=== PATIENT | female | born 1935 | race Hispanic/Latino ===

== ENCOUNTER 2017-10-04 01:45 | Emergency (ER) | payer OTHER ==
--- OUTSIDE RECORDS SUMMARY | 2017-10-04 01:47 | XMS REPORT | Clinical Summary ---
:1935 Author Organization [facility] Address [address] [place] [address] Care Team Providers Name Role Phone Asked, No Pcp Primary Care Provider Unavailable Allergies Active Allergy Reactions Severity Noted Date Comments Adhesive 04/23/2013 Tears skin Sulfasalazine Rash Low 11/06/2013 Current Medications Prescription Sig. Disp. Refills Start Date End Date Status glimepiride (AMARYL) 1 MG tablet 07/14/2016 Active metoprolol tartrate (LOPRESSOR) 25 mg 08/14/2016 Active tablet levothyroxine (SYNTHROID, LEVOXYL) 150 07/14/2016 Active mcg tablet simvastatin (ZOCOR) 10 MG tablet 07/14/2016 Active lisinopril (PRINIVIL,ZESTRIL) 2.5 mg 07/26/2016 Active tablet XARELTO 20 mg tablet 05/24/2016 Active Hospital, Clinic, or Other Ordered Dose Route Frequency Start Date End Date Status Facility Administered Medication LORAZepam (ATIVAN) tablet 1 1 mg oral once 09/02/2016 Active mg meperidine (PF) (DEMEROL) 75 75 mg IM once 09/02/2016 Active mg/mL injection 75 mg Active Problems Not on file Social History Tobacco Use Types Packs/Day Years Used Date Never Smoker Alcohol Use Drinks/Week oz/Week Comments No Sex Assigned at Date Recorded Not on file Last Filed Vital Signs Not on file Plan of Treatment Health Maintenance Due Date Last Done Comments SHINGRIX VACCINE (#1) 1985 ZOSTER VACCINE 1995 PNEUMOCOCCAL POLYSACCHARIDE VACCINE AGE 65 AND OVER 2000 PNEUMOCOCCAL-13 2000 INFLUENZA VACCINE 09/27/2017 Results Not on fileafter 10/03/2016 Insurance Payer Benefit Plan / Group Subscriber ID Type Phone Address MEDICARE MEDICARE PART A AND B xxxxxxxxxx Medicare [place], [place] Home: [address] [facility] [phone] [place] [phone]
[2017-10-04] MEDS ORDERED: ONDANSETRON 4 MG/2 ML VIAL ONE (02:37)
[2017-10-04] MEDS ORDERED: KETOROLAC 30 MG/ML INJ ONE (02:37)
[2017-10-04] MEDS ORDERED: FENTANYL CITR 100 MCG/2 ML ONE (02:37)
[2017-10-04] MEDS ORDERED: NA CHLORIDE 0.9% 250 ML ONE (02:37)
[2017-10-04 03:07] LABS: Absolute Lymphocytes (CBC) 1.7 K/uL (0.7-4.9); Absolute Monocytes 1.2 K/uL (0.1-1.3); Absolute Neutrophil 6.4 K/uL (1.8-8.0); Basophils % 0.2 % (0-1.3); Eosinophils % 0.7 % (0-4.4); Hematocrit 38.3 % (36.0-45.0); Lymphocytes % 18.1 % (15.3-44.8); MCH 30.4 pg (27.0-35.0); MCV 90.5 fL (80-100); MPV 9.2 fL (7.6-11.3); Monocytes % 12.3 % (3.3-12.3); RBC Red Blood Cell Count 4.23 M/uL (3.86-4.86)
[2017-10-04 03:25] LABS: Albumin 3.9 g/dL (3.4-5.0); Bilirubin Total 0.7 mg/dL (0.2-1.0); Potassium 4.5 mmol/L (3.5-5.1); Protein, Total 7.1 g/dL (6.4-8.2)
[2017-10-04] MEDS ORDERED: DEXAMETHASONE 10 MG/ML VIAL ONE (04:04)
--- NOTE | 2017-10-04 04:45 | EDPHYS ---
Physician Documentation [facility] Name: Dianne Juárez Age: 82 yrs Sex: Female : 1935 Arrival Date: 10/04/2017 Time: 01:46 Bed 6 Private MD: Darren Rudd R ED Physician Tor Rodriguez HPI: 10/04 02:21 This 82 yrs old Female presents to ER via Ambulatory with complaints of jesus manuel Shoulder Pain. 02:21 This 82 yrs old Female presents to ER via Ambulatory with complaints of jesus manuel Shoulder Pain. 02:21 The patient or guardian complains of decreased range of motion, pain, that is acute. jesus manuel right shoulder. Context: The problem was sustained at an unknown site. Onset: The symptoms/episode began/occurred 3 day(s) ago. Modifying factors: the symptoms are alleviated by remaining still, The symptoms are aggravated by movement. Associated signs and symptoms: The patient has no apparent associated signs or symptoms. Severity of symptoms: At their worst the symptoms were mild, moderate, in the emergency department the symptoms are unchanged. Treatment prior to arrival includes: no previous treatment. The patient has not experienced similar symptoms in the past. Historical: - Allergies: 02:07 Adhesives; fc 02:07 Sulfa (Sulfonamide Antibiotics); fc - Home Meds: 02:07 glimepiride 1 mg Oral tab 1 tab once daily [Active]; levothyroxine 150 mcg tab 1 tab fc once daily [Active]; lisinopril 10 mg oral tab 1 tab once daily [Active]; metoprolol tartrate 25 mg Oral tab 1 tab 2 times per day [Active]; Lasix 40 mg Oral tab 1 tab once daily [Active]; Xarelto 20 mg Oral tab 1 tab q evening [Active]; simvastatin 10 mg Oral tab 1 tab nightly [Active]; Enablex 15 mg oral Tb24 1 tab nightly [Active]; Naprosyn 375 mg Oral tab 1 tab 2 times per day [Active]; - PMHx: 02:07 Diabetes - NIDDM; Hypothyroidism; Hypertension; Atrial Fib; Hyperlipidemia; irregular fc heart beat; - PSHx: 02:07 Knee surgery; Cholecystectomy; BACK SURGERY; Lithotripsy; Carpal Tunnel Repair; fc - Immunization history:: Last tetanus immunization: unknown. - Social history:: Smoking status: Patient/guardian denies using tobacco. - Ebola Screening: : Patient negative for fever greater than or equal to 101.5 degrees Fahrenheit, and additional compatible Ebola Virus Disease symptoms Patient denies exposure to infectious person Patient denies travel to an Ebola-affected area in the 21 days before illness onset. - Family history:: not pertinent. ROS: 02:21 Constitutional: Negative for fever, chills, and weight loss, Eyes: Negative for injury, jesus manuel pain, redness, and discharge, ENT: Negative for injury, pain, and discharge, Neck: Negative for injury, pain, and swelling, Cardiovascular: Negative for chest pain, palpitations, and edema, Respiratory: Negative for shortness of breath, cough, wheezing, and pleuritic chest pain, Abdomen/GI: Negative for abdominal pain, nausea, vomiting, diarrhea, and constipation, Back: Negative for injury and pain, : Negative for injury, bleeding, discharge, and swelling, Skin: Negative for injury, rash, and discoloration, Neuro: Negative for headache, weakness, numbness, tingling, and seizure, Psych: Negative for depression, anxiety, suicide ideation, homicidal ideation, and hallucinations, Allergy/Immunology: Negative for hives, rash, and allergies, Endocrine: Negative for neck swelling, polydipsia, polyuria, polyphagia, and marked weight changes, Hematologic/Lymphatic: Negative for swollen nodes, abnormal bleeding, and unusual bruising. 02:21 MS/extremity: Positive for injury or acute deformity, decreased range of motion, pain, tenderness, of the anterior aspect of right shoulder and posterior aspect of right shoulder. Exam: 02:21 Constitutional: This is a well developed, well nourished patient who is awake, alert, jesus manuel and in no acute distress. Head/Face: Normocephalic, atraumatic. Eyes: Pupils equal round and reactive to light, extra-ocular motions intact. Lids and lashes normal. Conjunctiva and sclera are non-icteric and not injected. Cornea within normal limits. Periorbital areas with no swelling, redness, or edema. ENT: Nares patent. No nasal discharge, no septal abnormalities noted. Tympanic membranes are normal and external auditory canals are clear. Oropharynx with no redness, swelling, or masses, exudates, or evidence of obstruction, uvula midline. Mucous membranes moist. Neck: Trachea midline, no thyromegaly or masses palpated, and no cervical lymphadenopathy. Supple, full range of motion without nuchal rigidity, or vertebral point tenderness. No Meningismus. Chest/axilla: Normal chest wall appearance and motion. Nontender with no deformity. No lesions are appreciated. Cardiovascular: Regular rate and rhythm with a normal S1 and S2. No gallops, murmurs, or rubs. Normal PMI, no JVD. No pulse deficits. Respiratory: Lungs have equal breath sounds bilaterally, clear to auscultation and percussion. No rales, rhonchi or wheezes noted. No increased work of breathing, no retractions or nasal flaring. Abdomen/GI: Soft, non-tender, with normal bowel sounds. No distension or tympany. No guarding or rebound. No evidence of tenderness throughout. Back: No spinal tenderness. No costovertebral tenderness. Full range of motion. Skin: Warm, dry with normal turgor. Normal color with no rashes, no lesions, and no evidence of cellulitis. Neuro: Awake and alert, GCS 15, oriented to person, place, time, and situation. Cranial nerves II-XII grossly intact. Motor strength 5/5 in all extremities. Sensory grossly intact. Cerebellar exam normal. Normal gait. Psych: Awake, alert, with orientation to person, place and time. Behavior, mood, and affect are within normal limits. 02:21 Musculoskeletal/extremity: Circulation is intact in all extremities. Pulses: Compartment Syndrome exam of affected extremity: is normal. Joints: limited range of motion, pain at rest, painful range of motion, tenderness, DVT Exam: no swelling, negative Homans' sign noted on exam, no appreciated bluish discoloration, no erythema, no increased warmth, pain, tenderness. Vital Signs: 01:50 BP 175 / 85; Pulse 53; Resp 18; Temp 98.6(O); Pulse Ox 97% on R/A; Weight 98.88 kg (R); fc Height 5 ft. 2 in. (157.48 cm) (R); Pain 9/10; 04:09 BP 158 / 96; Pulse 65; Resp 18; Pulse Ox 98% on 2 lpm NC; lp1 01:50 Body Mass Index 39.87 (98.88 kg, 157.48 cm) MDM: 02:11 Patient medically screened. [facility] 02:25 Data reviewed: vital signs, nurses notes, lab test result(s), radiologic studies, plain [facility] films. 10/04 02:21 Order name: CBC with Diff; Complete Time: 04:25 [facility] 10/04 02:21 Order name: Comprehensive Metabolic Panel; Complete Time: 04:25 [facility] 10/04 02:21 Order name: Sed Rate; Complete Time: 04:25 [facility] 10/04 02:21 Order name: Shoulder Right (2 View) XRAY [facility] 10/04 04:37 Order name: Sling; Complete Time: 05:18 [facility] 10/04 04:41 Order name: Ice pack; Complete Time: 05:18 [facility] Administered Medications: 02:53 Drug: NS 0.9% 250 ml Route: IV; Rate: bolus; Site: left antecubital; lp1 05:22 Follow up: IV Status: Completed infusion; IV Intake: 200ml lp1 02:54 Drug: TORadol 15 mg Route: IVP; Site: left antecubital; lp1 03:22 Follow up: Response: Pain is unchanged, physician notified lp1 02:54 Drug: fentaNYL (PF) 25 mcg Route: IVP; Site: left antecubital; lp1 03:22 Follow up: Response: Pain is unchanged, physician notified lp1 02:54 Drug: Zofran 4 mg Route: IVP; Site: left antecubital; lp1 03:23 Follow up: Response: No adverse reaction lp1 03:22 Drug: fentaNYL (PF) 25 mcg Route: IVP; Site: left antecubital; lp1 04:07 Follow up: Response: Pain is decreased lp1 04:06 Drug: Decadron - Dexamethasone 10 mg Route: IVP; Site: left antecubital; lp1 04:45 Follow up: Response: No adverse reaction lp1 05:00 Drug: [place] 10 mg-325 mg 1 tabs Route: PO; lp1 05:18 Follow up: Response: Medication administered at discharge. lp1 05:00 Drug: Motrin 200 mg Route: PO; lp1 05:18 Follow up: Response: Medication administered at discharge. lp1 Disposition: 10/04/17 04:44 Discharged to Home. Impression: Pain in right shoulder, Effusion, right shoulder, Unspecified kidney failure, Type 2 diabetes mellitus. - Condition is Stable. - Discharge Instructions: Joint Pain, Arthritis, Type 2 Diabetes Mellitus, Diagnosis, Adult, Shoulder Pain, Shoulder Pain, [id number], Type 2 Diabetes Mellitus, Diagnosis, Adult, [id number]. - Prescriptions for Tylenol- Codeine #3 300-30 mg Oral Tablet - take 2 tablet by ORAL route every 6 hours As needed; 30 tablet. Medrol (Bret) 4 mg Oral Tablets, Dose Pack - take 1 tablet by ORAL route as directed - follow package instructions; 1 packet. Motrin IB 200 mg Oral Tablet - take 1 tablet by ORAL route every 6 hours As needed as needed with food; 20 tablet. - Medication Reconciliation Form, Thank You Letter, Antibiotic Education, Prescription Opioid Use form. - Follow up: Darren Rudd MD; When: 2 - 3 days; Reason: Recheck today's complaints, Continuance of care, Re-evaluation by your physician. Follow up: Philippe Thorpe MD; When: Tomorrow; Reason: Recheck today's complaints, Re-evaluation by your physician. - Problem is new. - Symptoms have improved. Signatures: Dispatcher [employer] EDNJ Tor Rodriguez MD MD cha Chretien, Felicia, RN RN fc Katerin Sparks RN RN lp1 Corrections: (The following items were deleted from the chart) 03:21 03:18 Chest Single View+RAD.RAD.BRZ ordered. [facility] 03:21 03:18 TYPE AND SCREEN+BB.LAB.BRZ ordered. [facility] 05:21 04:44 10/04/2017 04:44 Discharged to Home. Impression: Pain in right shoulder; lp1 Effusion, right shoulder; Unspecified kidney failure; Type 2 diabetes mellitus. Condition is Stable. Forms are Medication Reconciliation Form, Thank You Letter, Antibiotic Education, Prescription Opioid Use. Follow up: Darren Rudd; When: 2 - 3 days; Reason: Recheck today's complaints, Continuance of care, Re-evaluation by your physician. Follow up: Dr. Philippe Thorpe; When: Tomorrow; Reason: Recheck today's complaints, Re-evaluation by your physician. Problem is new. Symptoms have improved. jesus manuel
--- NOTE | 2017-10-04 04:45 | ER ---
Nurse's Notes [facility] Name: Dianne Juárez Age: 82 yrs Sex: Female : 1935 Arrival Date: 10/04/2017 Time: 01:46 Bed 6 Private MD: Darren Rudd R Diagnosis: Pain in right shoulder;Effusion, right shoulder;Unspecified kidney failure;Type 2 diabetes mellitus Presentation: 10/04 01:50 Presenting complaint: Daughter states that patient has been having right shoulder pain fc x 2 days. Denies any injury. Transition of care: patient was not received from another setting of care. Onset of symptoms was October 02, 2017. Risk Assessment: Do you want to hurt yourself or someone else? Patient reports no desire to harm self or others. Initial Sepsis Screen: Does the patient meet any 2 criteria? No. Patient's initial sepsis screen is negative. Does the patient have a suspected source of infection? No. Patient's initial sepsis screen is negative. Care prior to arrival: None. 01:50 Method Of Arrival: Ambulatory fc 01:50 Acuity: DOMINIQUE 4 fc Historical: - Allergies: 02:07 Adhesives; fc 02:07 Sulfa (Sulfonamide Antibiotics); fc - Home Meds: 02:07 glimepiride 1 mg Oral tab 1 tab once daily [Active]; levothyroxine 150 mcg tab 1 tab fc once daily [Active]; lisinopril 10 mg oral tab 1 tab once daily [Active]; metoprolol tartrate 25 mg Oral tab 1 tab 2 times per day [Active]; Lasix 40 mg Oral tab 1 tab once daily [Active]; Xarelto 20 mg Oral tab 1 tab q evening [Active]; simvastatin 10 mg Oral tab 1 tab nightly [Active]; Enablex 15 mg oral Tb24 1 tab nightly [Active]; Naprosyn 375 mg Oral tab 1 tab 2 times per day [Active]; - PMHx: 02:07 Diabetes - NIDDM; Hypothyroidism; Hypertension; Atrial Fib; Hyperlipidemia; irregular fc heart beat; - PSHx: 02:07 Knee surgery; Cholecystectomy; BACK SURGERY; Lithotripsy; Carpal Tunnel Repair; fc - Immunization history:: Last tetanus immunization: unknown. - Social history:: Smoking status: Patient/guardian denies using tobacco. - Ebola Screening: : Patient negative for fever greater than or equal to 101.5 degrees Fahrenheit, and additional compatible Ebola Virus Disease symptoms Patient denies exposure to infectious person Patient denies travel to an Ebola-affected area in the 21 days before illness onset. - Family history:: not pertinent. Screenin:50 Abuse screen: Denies threats or abuse. Nutritional screening: No deficits noted. Tuberculosis screening: No symptoms or risk factors identified. 02:55 Fall Risk None identified. lp1 Assessment: 02:45 General: Appears uncomfortable, Behavior is restless. Pain: Complains of pain in right lp1 shoulder Pain currently is 10 out of 10 on a pain scale. Quality of pain is described as aching, sharp, Pain began 2-3 days ago. Neuro: Level of Consciousness is awake, alert, obeys commands. Cardiovascular: Patient's skin is warm and dry. Respiratory: Respiratory effort is even, unlabored, Respiratory pattern is regular, symmetrical, Breath sounds are clear bilaterally. GI: Abdomen is non-distended. : No signs and/or symptoms were reported regarding the genitourinary system. EENT: No signs and/or symptoms were reported regarding the EENT system. Derm: Skin is fragile, is thin, Skin is dry, Skin is normal. Musculoskeletal: Circulation, motion, and sensation intact. Range of motion: limited in right shoulder related to pain Reports pain in right shouler. 03:15 Reassessment: Family states no pain relief to patient after meds given; Provider lp1 notified. 04:15 Reassessment: Patient and/or family updated on plan of care and expected duration. Pain lp1 level reassessed. Patient states continued pain to right shoulder, little relief; family at bedside Patient states symptoms have improved. Vital Signs: 01:50 BP 175 / 85; Pulse 53; Resp 18; Temp 98.6(O); Pulse Ox 97% on R/A; Weight 98.88 kg (R); Height 5 ft. 2 in. (157.48 cm) (R); Pain 9/10; 04:09 BP 158 / 96; Pulse 65; Resp 18; Pulse Ox 98% on 2 lpm NC; lp1 01:50 Body Mass Index 39.87 (98.88 kg, 157.48 cm) ED Course: 01:46 Patient arrived in ED. ds1 01:46 Katte, Darren, MD is Private Physician. ds1 01:50 Arm band placed on Patient placed in an exam room, on a stretcher. fc 01:50 Patient has correct armband on for positive identification. Bed in low position. Call fc light in reach. Side rails up X 1. 01:50 No provider procedures requiring assistance completed. fc 02:03 Triage completed. fc 02:11 Tor Rodriguez MD is Attending Physician. jesus manuel 02:23 Katerin Sparks RN is Primary Nurse. lp1 02:37 X-ray completed. Portable x-ray completed in exam room. Patient tolerated procedure kw well. 02:38 Shoulder Right (2 View) XRAY In Process Unspecified. EDMS 02:45 Inserted saline lock: 22 gauge in left antecubital area, using aseptic technique. Blood lp1 collected. 04:43 Darren Rudd MD is Referral Physician. jesus manuel 04:43 Philippe Thorpe MD is Referral Physician. jesus manuel 05:19 IV discontinued, No redness/swelling at site. Pressure dressing applied. lp1 05:19 Sling applied to right arm. Ice pack applied to right shoulder. lp1 Administered Medications: 02:53 Drug: NS 0.9% 250 ml Route: IV; Rate: bolus; Site: left antecubital; lp1 05:22 Follow up: IV Status: Completed infusion; IV Intake: 200ml lp1 02:54 Drug: TORadol 15 mg Route: IVP; Site: left antecubital; lp1 03:22 Follow up: Response: Pain is unchanged, physician notified lp1 02:54 Drug: fentaNYL (PF) 25 mcg Route: IVP; Site: left antecubital; lp1 03:22 Follow up: Response: Pain is unchanged, physician notified lp1 02:54 Drug: Zofran 4 mg Route: IVP; Site: left antecubital; lp1 03:23 Follow up: Response: No adverse reaction lp1 03:22 Drug: fentaNYL (PF) 25 mcg Route: IVP; Site: left antecubital; lp1 04:07 Follow up: Response: Pain is decreased lp1 04:06 Drug: Decadron - Dexamethasone 10 mg Route: IVP; Site: left antecubital; lp1 04:45 Follow up: Response: No adverse reaction lp1 05:00 Drug: [place] 10 mg-325 mg 1 tabs Route: PO; lp1 05:18 Follow up: Response: Medication administered at discharge. lp1 05:00 Drug: Motrin 200 mg Route: PO; lp1 05:18 Follow up: Response: Medication administered at discharge. lp1 Intake: 05:22 IV: 200ml; Total: 200ml. lp1 Outcome: 04:44 Discharge ordered by MD. ken 05:19 Discharged to home via wheelchair, with family. lp1 05:19 Condition: stable 05:19 Discharge instructions given to patient, family, Instructed on discharge instructions, follow up and referral plans. medication usage, Demonstrated understanding of instructions, follow-up care, medications, Prescriptions given X 3. 05:21 Patient left the ED. lp1 Signatures: Dispatcher [employer] EDMS Tor Rodriguez MD MD cha Chretien, Felicia, RN RN Karol Wells dsNereyda Yates Laura, RN RN lp1 Corrections: (The following items were deleted from the chart) 04:16 02:45 General: Appears uncomfortable, lp1 lp1
[2017-10-04] MEDS ORDERED: HYDROCODONE/APAP 10/325 TAB ONE (04:47)
[2017-10-04] MEDS ORDERED: IBUPROFEN 200 MG TAB PO ONE (05:01)
[2017-10-04 05:25] VITALS: TEMP 98.6
[2017-10-04 05:26] VITALS: BP 158/96; O2SAT 98
--- NOTE | 2017-10-04 08:45 | RAD REPORT ---
EXAM DESCRIPTION: Shoulder Right 2 View - 10/04/2017 2:41 am CLINICAL HISTORY: Nontraumatic right shoulder pain COMPARISON: None. TECHNIQUE: Internal and external rotation views of the right shoulder were obtained. FINDINGS: No gross fracture deformity seen and no gross evidence for dislocation. Patient has a wide khalida acromial humeral joint space. This can typically be seen with of a shoulder laxity. Curvilinear c alcification along the inferior articular margin is probably degenerative. Fracture fragment from the humerus or glenoid is doubtful. Occasionally, posterior dislocation can be masked. Degenerative fernandes ges at the AC joint are mild. No abnormal soft tissues in the subacromion space. IMPRESSION: No gross evidence for fracture or dislocation. If the patient has continued unexplained shoulder pain for abnormal range of motion, MR imaging could be obtained to evaluate for occult bony injury or internal derangement. Alternatively, CT imaging co uld be performed to evaluate for subtle fracture.
== END 2017-10-04 05:21 | disposition home or self-care (01) ==
LOC: ER 01:45
DX: M25.411 Effusion, right shoulder (principal); N19 Unspecified kidney failure; E11.9 Type 2 diabetes mellitus without complications; I10 Essential (primary) hypertension; E03.9 Hypothyroidism, unspecified; I48.91 Unspecified atrial fibrillation; Z79.01 Long term (current) use of anticoagulants; Z88.2 Allergy status to sulfonamides; Z91.048 Other nonmedicinal substance allergy status
CPT/HCPCS: 36415; 73030; 80053; 85025; 85652; J1100; J2405; J3010; 96361; 96365; 96366; 96374; 96375; 99284

== ENCOUNTER 2018-04-09 11:13 | Observation (INO) | payer OTHER ==
--- OUTSIDE RECORDS SUMMARY | 2018-04-09 12:06 | XMS REPORT | Clinical Summary ---
:1935 Author Organization [facility] Address [address] [place] [address] Care Team Providers Name Role Phone Asked, No Pcp Primary Care Provider Unavailable Allergies Active Allergy Reactions Severity Noted Date Comments Adhesive 04/23/2013 Tears skin Sulfasalazine Rash Low 11/06/2013 Medications Medication Sig Dispensed Refills Start Date End Date Status glimepiride (AMARYL) 0 07/14/2016 Active 1 MG tablet metoprolol tartrate 25 mg 2 (two) 0 08/14/2016 Active (LOPRESSOR) 25 mg times a day. tablet levothyroxine 0 07/14/2016 Active (SYNTHROID, LEVOXYL) 150 mcg tablet simvastatin (ZOCOR) 0 07/14/2016 Active 10 MG tablet furosemide (LASIX) Take 40 mg by 0 Active 40 mg/4 mL solution mouth daily. oral solution colchicine 0.6 mg Take 0.5 30 tablet 3 12/25/2017 12/25/2018 Active tablet tablets (0.3 mg total) by mouth 2 (two) times a day. famotidine (PEPCID) Take 1 tablet 60 tablet 3 12/25/2017 12/25/2018 Active 20 MG tablet (20 mg total) by mouth 2 (two) times a day. aspirin (ECOTRIN) 81 Take 1 tablet 30 tablet 3 12/26/2017 12/26/2018 Active MG enteric coated (81 mg total) tablet by mouth daily. clopidogrel (PLAVIX) Take 1 tablet 30 tablet 3 12/26/2017 12/26/2018 Active 75 mg tablet (75 mg total) by mouth daily. lisinopril 0 07/26/2016 12/25/2017 Discontinued (PRINIVIL,ZESTRIL) 2.5 mg tablet XARELTO 20 mg tablet 0 05/24/2016 12/25/2017 Discontinued Hospital, Clinic, or Ordered Dose Route Frequency Start Date End Date Status Other Facility Administered Medication LORAZepam (ATIVAN) 1 mg oral once 09/02/2016 12/25/2017 Discontinued tablet 1 mg meperidine (PF) 75 mg IM once 09/02/2016 12/25/2017 Discontinued (DEMEROL) 75 mg/mL injection 75 mg Active Problems Problem Noted Date A-fib 12/21/2017 Electrolyte and fluid disorder 12/20/2017 Atrial fibrillation, persistent 12/20/2017 Encounters Date Type Specialty Care Team Description 12/21/2017 Anesthesia Event Procedural Raymon Perkins Cardiology Rocael, PHYSICAL TESTING SUPERVISOR 12/21/2017 Surgery Procedural Maureen Douglas MD Cv left atrial Cardiology appendage closure- LARIAT [64485 (CPT)] 12/20/2017 - Hospital Encounter Cardiology RicardoAyaan renteria Atrial fibrillation, 12/25/2017 MD Larry persistent (HCC) (Primary Dx) 11/20/2017 Transcribe Orders Procedural RicardoAyaan ross Persistent atrial Cardiology MD Larry fibrillation (Primary Dx) 11/07/2017 Hospital Encounter Procedural RicardoAyaan Atrial fibrillation, Cardiology MD Larry unspecified type 11/07/2017 Hospital Encounter Procedural RicardoAyaan Chronic atrial Cardiology MD Larry fibrillation 11/06/2017 Transcribe Orders Procedural RicardoAyaan Atrial fibrillation Cardiology MD Larry unspecified type (Primary Dx) 10/26/2017 Transcribe Orders Procedural RicardoAyaan Chronic atrial Cardiology MD Larry fibrillation (Primary Dx) after 04/08/2017 Immunizations Name Dates Previously Given Next Due Pneumococcal Conjugate 13-Valent 12/23/2017 (Deferred: ) Family History Medical History Relation Name Comments Cancer Mother Diabetes Mother Relation Name Status Comments Mother Social History Tobacco Use Types Packs/Day Years Used Date Never Smoker Alcohol Use Drinks/Week oz/Week Comments No Sex Assigned at Date Recorded Not on file Job Start Date Occupation Industry Not on file Not on file Not on file Travel History Travel Start Travel End No recent travel history available. Last Filed Vital Signs Vital Sign Reading Time Taken Blood Pressure 105/73 12/25/2017 7:54 AM CDT Pulse 74 12/25/2017 7:54 AM CDT Temperature 36.7 C (98 F) 12/25/2017 7:54 AM CDT Respiratory Rate 16 12/25/2017 7:54 AM CDT Oxygen Saturation 95% 12/25/2017 7:54 AM CDT Inhaled Oxygen Concentration - - Weight 99.8 kg (220 lb 1.6 oz) 12/24/2017 4:56 AM CDT Height 157.5 cm (5' 2") 12/20/2017 7:25 PM CDT Body Mass Index 40.26 12/24/2017 4:56 AM CDT Plan of Treatment Health Maintenance Due Date Last Done Comments SHINGLES VACCINES (1 of 2) 1985 PNEUMOCOCCAL POLYSACCHARIDE VACCINE AGE 65 AND OVER 2000 PNEUMOCOCCAL-13 2000 INFLUENZA VACCINE 09/27/2017 Implants Implanted Type Area Senior Php Web Developer Device Shelf Model / Identifier Expiration Serial / Date Lot Balloon Oclsn Endocath 0.35in 90cm [id number] - [id number] Cardiovascular N/A: [employer] 20 06 / Implanted: 12/21/2017 (Quantity not on file) Implants N/A / Knee Implant Procedures Procedure Name Priority Date/Time Associated Comments Diagnosis POC GLUCOSE Routine 12/25/2017 11:41 Results for this AM CDT procedure are in the results section. CV ECHO 2D FOLLOW UP OR Routine 12/25/2017 9:15 Results for this LIMITED STUDY AM CDT procedure are in the results section. POC GLUCOSE Routine 12/25/2017 7:54 Results for this AM CDT procedure are in the results section. ESTIMATED GFR Routine 12/25/2017 5:41 Results for this AM CDT procedure are in the results section. MAGNESIUM LEVEL Routine 12/25/2017 5:41 Results for this AM CDT procedure are in the results section. BASIC METABOLIC PANEL Routine 12/25/2017 5:41 Results for this AM CDT procedure are in the results section. POC GLUCOSE Routine 12/24/2017 12:08 Results for this PM CDT procedure are in the results section. XR CHEST 1 VW PORTABLE STAT 12/24/2017 11:55 Results for this AM CDT procedure are in the results section. POC GLUCOSE Routine 12/24/2017 7:17 Results for this AM CDT procedure are in the results section. ESTIMATED GFR Routine 12/24/2017 6:23 Results for this AM CDT procedure are in the results section. MAGNESIUM LEVEL Routine 12/24/2017 6:23 Results for this AM CDT procedure are in the results section. B NATRIURETIC PEPTIDE Routine 12/24/2017 6:23 Results for this AM CDT procedure are in the results section. BASIC METABOLIC PANEL Routine 12/24/2017 6:23 Results for this AM CDT procedure are in the results section. POC GLUCOSE Routine 12/23/2017 9:52 Results for this PM CDT procedure are in the results section. POC GLUCOSE Routine 12/23/2017 5:06 Results for this PM CDT procedure are in the results section. ECHOCARDIOGRAM 2D COMPLETE Routine 12/23/2017 4:08 Results for this W MMODE SPECTRAL COLOR PM CDT procedure are in DOPPLER ([id number]) the results section. POC GLUCOSE Routine 12/23/2017 12:41 Results for this PM CDT procedure are in the results section. POC GLUCOSE Routine 12/23/2017 7:47 Results for this AM CDT procedure are in the results section. ESTIMATED GFR Routine 12/23/2017 4:55 Results for this AM CDT procedure are in the results section. MAGNESIUM LEVEL Routine 12/23/2017 4:55 Results for this AM CDT procedure are in the results section. B NATRIURETIC PEPTIDE Routine 12/23/2017 4:55 Results for this AM CDT procedure are in the results section. BASIC METABOLIC PANEL Routine 12/23/2017 4:55 Results for this AM CDT procedure are in the results section. POC GLUCOSE Routine 12/22/2017 10:02 Results for this PM CDT procedure are in the results section. POC GLUCOSE Routine 12/22/2017 5:45 Results for this PM CDT procedure are in the results section. POC GLUCOSE Routine 12/22/2017 10:45 Results for this AM CDT procedure are in the results section. POC GLUCOSE Routine 12/22/2017 7:46 Results for this AM CDT procedure are in the results section. ESTIMATED GFR Routine 12/22/2017 5:20 Results for this AM CDT procedure are in the results section. MAGNESIUM LEVEL Routine 12/22/2017 5:20 Results for this AM CDT procedure are in the results section. B NATRIURETIC PEPTIDE Routine 12/22/2017 5:20 Results for this AM CDT procedure are in the results section. BASIC METABOLIC PANEL Routine 12/22/2017 5:20 Results for this AM CDT procedure are in the results section. POC GLUCOSE Routine 12/21/2017 9:32 Results for this PM CDT procedure are in the results section. POC GLUCOSE Routine 12/21/2017 4:51 Results for this PM CDT procedure are in the results section. POC GLUCOSE Routine 12/21/2017 2:56 Results for this PM CDT procedure are in the results section. POC GLUCOSE Routine 12/21/2017 11:16 Results for this AM CDT procedure are in the results section. CV PERICARDIOCENTESIS Routine 12/21/2017 10:50 Atrial AM CDT fibrillation, persistent (HCC) CV LEFT ATRIAL APPENDAGE Routine 12/21/2017 10:50 Atrial CLOSURE AM CDT fibrillation, persistent (HCC) ACTIVATED CLOTTING TIME Routine 12/21/2017 10:44 Results for this AM CDT procedure are in the results section. ACTIVATED CLOTTING TIME Routine 12/21/2017 10:27 Results for this AM CDT procedure are in the results section. ACTIVATED CLOTTING TIME Routine 12/21/2017 9:05 Results for this AM CDT procedure are in the results section. IL AN ELECTIVE Routine 12/21/2017 8:49 ENDOTRACHEAL AIRWAY AM CDT Procedure Note - Rocco Becerra CRNA - 12/21/2017 8:49 AM CDT Airway Date/Time: 12/21/2017 8:33 AM Performed by: ROCCO BECERRA Authorized by: CARLOS ALBERTO MALONEY Location: OR Urgency: Elective Difficult Airway: No Anesthesiologist: CARLOS ALBERTO MALONEY Resident/PHYSICAL TESTING SUPERVISOR/AA: ROCCO BECERRA Performed by: resident/PHYSICAL TESTING SUPERVISOR/AA Preoxygenated with 100% O2: Yes C-spine Precautions Maintained Throughout: Yes Mask Ventilation: Easy mask Final Airway Type: Endotracheal airway Final Endotracheal Airway: ETT Cuffed: Yes Technique Used: Direct laryngoscopy Devices/Methods Used in Placement: Intubating stylet Insertion Site: Oral Blade Type: Mcclain Laryngoscope Blade/Videolaryngoscope Blade Size: 2 ETT Size (mm): 7.0 Cuff at minimum occlusion pressure: Yes Measured from: Lips ETT to Lips (cm): 20 Placement Verified by: CO2 detection, direct visualization and equal breath sounds Laryngoscopic view: Grade I - full view of glottis Rapid Sequence Induction (RSI): No Modified RSI: No Number of Attempts at Approach: 1 Pt intubated without difficulty or trauma; Positive end tidal CO2 noted, BBS , dentition remains intact per preop assessment PREPARE RBC STAT 12/21/2017 8:00 Results for this AM CDT procedure are in the results section. TYPE AND SCREEN STAT 12/21/2017 8:00 Results for this AM CDT procedure are in the results section. PARTIAL THROMBOPLASTIN STAT 12/21/2017 8:00 Results for this TIME (PTT) AM CDT procedure are in the results section. PROTHROMBIN TIME WITH STAT 12/21/2017 8:00 Results for this INR AM CDT procedure are in the results section. POC GLUCOSE Routine 12/21/2017 5:56 Results for this AM CDT procedure are in the results section. HC COMPLETE BLD COUNT Routine 12/20/2017 9:45 Results for this W/AUTO DIFF PM CDT procedure are in the results section. B NATRIURETIC PEPTIDE Routine 12/20/2017 9:45 Results for this PM CDT procedure are in the results section. ESTIMATED GFR Routine 12/20/2017 7:48 Results for this PM CDT procedure are in the results section. MAGNESIUM LEVEL Routine 12/20/2017 7:48 Results for this PM CDT procedure are in the results section. BASIC METABOLIC PANEL Routine 12/20/2017 7:48 Results for this PM CDT procedure are in the results section. CV CTA CORONARY PRE Routine 11/07/2017 3:34 Atrial fibrillation, Results for this AFIB PULMONARY VEIN PM CDT unspecified type procedure are in MAPPING the results section. ECHOCARDIOGRAM Routine 11/07/2017 3:16 Chronic atrial Results for this TRANSESOPHAGEAL W PM CDT fibrillation procedure are in DOPPLER COLORFLOW the results section. after 04/08/2017 Results POC glucose (12/25/2017 11:41 AM CDT)Only the most recent of17 resultswithin the time period is included. POC glucose 171 (H) 65 - 99 mg/dL [facility] DEPARTMENT OF PATHOLOGY Comment: AND GENOMIC MEDICINE [facility] Notified RN Meter ID: [id number] Merchandise Support Associate: Phil Velazquez Performing Organization Address City/State/Zipcode Phone Number [facility] DEPARTMENT OF PATHOLOGY AND [address] [phone] GENOMIC MEDICINE Echocardiogram 2d limited (12/25/2017 9:15 AM CDT) Narrative Performed At [facility] Echocardiography Report [address] [address], [place] [address] Pat.Name:DIANNE JUÁREZ.ID:[id number] .Date: 10/29/2018Refer.MD:AYAAN PARK MD Exam Time: 8:48:00 AMStudy Type:Routine Echo Height:62inWeight: 220lb BSA: 1.99 m2 DOBAge:1935,82Y Sex: FEMALEBP:105/73 HR:74 bpmSonogrphr: Radha Bernstein, RDCS, RVT Pat. Stat.:Inpatient Room:[address] Study Status:Final Echo Event ID:[id number] Order ID:[id number] Reason for Study:Effusion History / Clinical:Diabetes, Hyperlipidemia, Hypertension, Arrhythmias, Atrial Fibrillation Procedures:2D Echo,Colorflow Doppler Limited Race:C SUMMARY: No pericardial effusion. FINDINGS: LV: LV size is normal. There is severe concentric LV hypertrophy.LV EF is normal. Overall wall motion is normal.Estimated EF is 60-64%. RV: RV size is normal. RV systolic function is normal. RV wall motionis normal. LA: LA volume is severely enlarged. RA: RA size is normal. AO: Aortic root diameter is normal. NAYELY: No pericardial effusion. AV: No structural AV abnormalities noted. MV: Mild mitral annular calcification. Mild mitral regurgitation. PV: No structural PV abnormalities noted. TV: No structural TV abnormalities noted. Mild tricuspid regurgitation Other:Estimated PA systolic pressure is 41 mmHg, assuming a mean RAPof 10 mmHg. MEASUREMENTS: 2D Parasternal [place] Ao An2 cmLVPWd1.7 cm LVOT 2 cmLA Ds5.4 cm LVIDd4.2 cmIndex2.1 cm/m Ao Rtd 3.9 cm Index1.9 cm/m LVIDs2.3 cmLV Bxcm284.3 g(87-129) LV%fs 45 % LVM Mrjre284.8 g/m2 IVSd 1.5 cmRWT0.8 DOPPLER LVOT Stroke Vol LVOT 2 cmLVOT CO4 l/min LVOT TVI18.7 cmLVOT CI2 l/m/m2 LVOT Tm286 woapOY56 bpm LVOT SV 58.6 ml Signed 12/25/2017 02:35 PM Meeta Jaeger M.D. Procedure Note Interface, Radiology Results In - 12/25/2017 2:35 PM CDT Echocardiography Report [address] [place] [address] Pat.Name: DIANNE JUÁREZ Letty.ID: [id number] .Date: 12/25/2017 Refer.MD: AYAAN PARK MD Exam Time: 8:48:00 AM Study Type:Routine Echo Height: 62in Weight: 220lb BSA: 1.99 m2 Age: 2 1935,82Y Sex: FEMALE BP: 105/73 HR: 74 bpm Sonogrphr: Radha Bernstein RD, RVT Pat. Stat.:Inpatient Room: [address] Study Status:Final Echo Event ID:[id number] Order ID: [id number] Reason for Study:Effusion History / Clinical:Diabetes, Hyperlipidemia, Hypertension, Arrhythmias, Atrial Fibrillation Procedures:2D Echo,Colorflow Doppler Limited Race: C SUMMARY: No pericardial effusion. FINDINGS: LV: LV size is normal. There is severe concentric LV hypertrophy. LV EF is normal. Overall wall motion is normal. Estimated EF is 60-64%. RV: RV size is normal. RV systolic function is normal. RV wall motion is normal. LA: LA volume is severely enlarged. RA: RA size is normal. AO: Aortic root diameter is normal. NAYELY: No pericardial effusion. AV: No structural AV abnormalities noted. MV: Mild mitral annular calcification. Mild mitral regurgitation. PV: No structural PV abnormalities noted. TV: No structural TV abnormalities noted. Mild tricuspid regurgitation Other: Estimated PA systolic pressure is 41 mmHg, assuming a mean RAP of 10 mmHg. MEASUREMENTS: 2D Parasternal [place] Ao An 2 cm LVPWd 1.7 cm LVOT 2 cm LA Ds 5.4 cm LVIDd 4.2 cm Index 2.1 cm/m Ao Rtd 3.9 cm Index 1.9 cm/m LVIDs 2.3 cm LV Mass 272.3 g (87-129) LV%fs 45 % LVM Index 136.8 g/m2 IVSd 1.5 cm RWT 0.8 DOPPLER LVOT Stroke Vol LVOT 2 cm LVOT CO 4 l/min LVOT TVI 18.7 cm LVOT CI 2 l/m/m2 LVOT Tm 286 msec HR 68 bpm LVOT SV 58.6 ml Signed 12/25/2017 02:35 PM Meeta Jaeger M.D. Performing Organization Address City/State/Zipcode Phone Number [facility] [address] [place] [address] Estimated GFR (12/25/2017 5:41 AM CDT)Only the most recent of5 resultswithin the time period is included. Estimated GFR 64 mL/min/1.73 m2 [facility] DEPARTMENT OF Comment: PATHOLOGY AND GENOMIC CatergoryUnitsInterpretation MEDICINE G1 >=90 Normal or high G2 60-89Mildly decreased [id number] to moderately decreased [id number] to severely decreased G4 15-29Severely decreased G5 <15Kidney failure The eGFR was calculated using the Chronic Kidney Disease Epidemiology Collaboration (CKD-EPI) equation. Interpretation is based on recommendations of the National Kidney Foundation-Kidney Disease Outcomes Quality Initiative (NKF-KDOQI) published in 2014. Specimen Plasma specimen Performing Organization Address City/[facility] Phone Number [facility] DEPARTMENT OF PATHOLOGY AND [address] [place] [phone] GENOMIC MEDICINE Magnesium level (12/25/2017 5:41 AM CDT)Only the most recent of5 resultswithin the time period is included. Magnesium 2.0 1.6 - 2.4 mg/dL [facility] DEPARTMENT OF PATHOLOGY AND GENOMIC MEDICINE Specimen Plasma specimen Performing Organization Address [facility] Phone Number [facility] DEPARTMENT OF PATHOLOGY AND [address] [place] [id number] [facility] MEDICINE Basic metabolic panel (12/25/2017 5:41 AM CDT)Only the most recent of5 resultswithin the time period is included. Sodium 134 (L) 135 - 148 mEq/L [facility] DEPARTMENT OF PATHOLOGY AND GENOMIC MEDICINE Potassium 4.0 3.5 - 5.0 mEq/L [facility] DEPARTMENT OF PATHOLOGY AND GENOMIC MEDICINE Chloride 96 (L) 98 - 112 mEq/L [facility] DEPARTMENT OF PATHOLOGY AND GENOMIC MEDICINE CO2 25 24 - 31 mEq/L [facility] DEPARTMENT OF PATHOLOGY AND GENOMIC MEDICINE Anion gap 13@ANIO 7 - 15 mEq/L [facility] DEPARTMENT OF PATHOLOGY AND GENOMIC MEDICINE BUN 15 8 - 23 mg/dL [facility] DEPARTMENT OF PATHOLOGY AND GENOMIC MEDICINE Creatinine 0.84 0.50 - 0.90 mg/dL [facility] DEPARTMENT OF PATHOLOGY AND GENOMIC MEDICINE Glucose 112 (H) 65 - 99 mg/dL [facility] DEPARTMENT OF PATHOLOGY AND GENOMIC MEDICINE Calcium 8.6 (L) 8.8 - 10.2 mg/dL [facility] DEPARTMENT OF PATHOLOGY AND GENOMIC MEDICINE Specimen Plasma specimen Performing Organization Address [facility] Phone Number [facility] DEPARTMENT OF PATHOLOGY AND [address] [place] [phone] [facility] XR Chest 1 Vw Portable (12/24/2017 11:55 AM CDT) Narrative Performed At EXAMINATION:XR CHEST 1 VW PORTABLE RADIANT CLINICAL HISTORY:Pericardial drain removal COMPARISON:12/06/2013 IMPRESSION: 1.The cardiomediastinal silhouette is moderately enlarged. 2.Vascular congestion is unchanged. There is persistent retrocardiac volume loss. There are no significant effusions. [facility]-[id number] Procedure Note Interface, Radiology Results Incoming - 12/24/2017 12:20 PM CDT EXAMINATION: XR CHEST 1 VW PORTABLE CLINICAL HISTORY: Pericardial drain removal COMPARISON: 12/06/2013 IMPRESSION: 1. The cardiomediastinal silhouette is moderately enlarged. 2. Vascular congestion is unchanged. There is persistent retrocardiac volume loss. There are no significant effusions. [facility]-[id number] Performing Organization Address [facility] Phone Number [facility] [address] [place] [address] B natriuretic peptide (12/24/2017 6:23 AM CDT)Only the most recent of4 resultswithin the time period is included. BNP 151 (H) 0 - 100 pg/mL [facility] DEPARTMENT OF PATHOLOGY AND GENOMIC MEDICINE Specimen Blood Performing Organization Address [facility] Phone Number [facility] DEPARTMENT OF PATHOLOGY AND [address] [place] [address] GENOMIC MEDICINE Echocardiogram complete w contrast and 3D if needed (12/23/2017 4:08 PM CDT) Narrative Performed At [facility] Echocardiography Report [address] [place] [address] Pat.Name:DIANNE JUÁREZ Letty.ID:[id number] .Date: 12/23/2017Refer.MD:AYAAN PARK MD Exam Time: 3:24:00 PMStudy Type:Routine Echo Height:62inBSA: 2.01 m2 DOBAge:1935,82Y Sex: FEMALE BP:114/67HR: 86 bpm Sonogrphr: SHAKEEL Easley Pat. Stat.:Inpatient Room:[address] Study Status:Final Echo Event ID:[id number] Order ID:[id number] Reason for Study:Effusion History / Clinical:Diabetes, Hyperlipidemia, Hypertension, Arrhythmias, Atrial Fibrillation Procedures:2D Echo, Colorflow Doppler, Strain, Portable Race:C SUMMARY: LV size is normal. LV EF is normal. Estimated EF is 65-69% RV size is normal. RV systolic function is normal. FINDINGS: LV: LV size is normal. Concentric left ventricular remodeling. LVEF is normal. Overall wall motion is normal. Estimated EFis 65-69% RV: RV size is normal. RV systolic function is normal. LA: LA volume is severely enlarged. RA: RA size is normal. AO: Aortic root diameter is normal. NAYELY: Small anterior pericardial effusion. AV: No structural AV abnormalities noted. MV: Mild mitral annular calcification. PV: No structural PV abnormalities noted. TV: No structural TV abnormalities noted. Mild tricuspid regurgitation Other:Estimated PA systolic pressure is 38-43 mmHg, assuming a meanRAP of5-10 mmHg. MEASUREMENTS: 2D Parasternal [place] LVIDd4.3 cmIndex2.1 cm/m LA Ds5.4 cm LVIDs2.8 cmAo Rtd 3.7 cm Index1.8 cm/m LV%fs 35.4 % LV Pufc282.7 g(87-129) IVSd 1 cmLVM Index 88.9 g/m2 LVPWd1.3 cmRWT0.6 LA Sng Plane LA Area 30.1 cm2(8.8-23.4) LA Vol 119.1 ml Index59.3 ml/m LA LngAx 6.3 cm Signed 12/23/2017 05:14 PM Nick Umana M.D. Procedure Note Interface, Radiology Results In - 12/23/2017 5:16 PM CDT Echocardiography Report [address] [address] Pat.Name: DIANNE JUÁREZ Pat.ID: [id number] .Date: 12/23/2017 Refer.MD: AYAAN PARK MD Exam Time: 3:24:00 PM Study Type:Routine Echo Height: 62in BSA: 2.01 m2 Age: 2 1935,82Y Sex: FEMALE BP: 114/67 HR: 86 bpm Sonogrphr: SHAKEEL Easley Pat. Stat.:Inpatient Room: [address] Study Status:Final Echo Event ID:[id number] Order ID: [id number] Reason for Study:Effusion History / Clinical:Diabetes, Hyperlipidemia, Hypertension, Arrhythmias, Atrial Fibrillation Procedures:2D Echo, Colorflow Doppler, Strain, Portable Race: C SUMMARY: LV size is normal. LV EF is normal. Estimated EF is 65-69% RV size is normal. RV systolic function is normal. FINDINGS: LV: LV size is normal. Concentric left ventricular remodeling. LV EF is normal. Overall wall motion is normal. Estimated EF is 65-69% RV: RV size is normal. RV systolic function is normal. LA: LA volume is severely enlarged. RA: RA size is normal. AO: Aortic root diameter is normal. NAYELY: Small anterior pericardial effusion. AV: No structural AV abnormalities noted. MV: Mild mitral annular calcification. PV: No structural PV abnormalities noted. TV: No structural TV abnormalities noted. Mild tricuspid regurgitation Other: Estimated PA systolic pressure is 38-43 mmHg, assuming a mean RAP of 5-10 mmHg. MEASUREMENTS: 2D Parasternal [place] LVIDd 4.3 cm Index 2.1 cm/m LA Ds 5.4 cm LVIDs 2.8 cm Ao Rtd 3.7 cm Index 1.8 cm/m LV%fs 35.4 % LV Mass 178.7 g (87-129) IVSd 1 cm LVM Index 88.9 g/m2 LVPWd 1.3 cm RWT 0.6 LA Sng Plane LA Area 30.1 cm2 (8.8-23.4) LA Vol 119.1 ml Index 59.3 ml/m LA LngAx 6.3 cm Signed 12/23/2017 05:14 PM Nick Umana M.D. Performing Organization Address [facility] Phone Number [facility] [address] [place] [address] Activated clotting time (12/21/2017 10:44 AM CDT)Only the most recent of3 resultswithin the time period is included. Activated clotting time 113 96 - 152 sec [facility] DEPARTMENT OF PATHOLOGY Comment: AND Arden Reed Meter ID: [id number] Merchandise Support Associate: Gregorio Ennis Performing Organization Address [facility]/[employer] Phone Number [facility] DEPARTMENT OF PATHOLOGY AND [address] [place] [address] Arden Reed Partial thromboplastin time, activated (12/21/2017 8:00 AM CDT) PTT 25.8 23.0 - 36.0 sec [facility] DEPARTMENT OF PATHOLOGY Comment: AND Arden Reed PTT therapeutic range for unfractionated heparin is 61.0-112.0 seconds which corresponds to Anti-Xa 0.3-0.7 U/ml. Specimen Blood Performing Organization Address [facility]/[employer] Phone Number [facility] DEPARTMENT OF PATHOLOGY AND [address] [place] [address] [employer] [facility] Prothrombin time with INR (12/21/2017 8:00 AM CDT) Prothrombin time 13.3 12.0 - 15.0 sec [facility] DEPARTMENT OF PATHOLOGY AND GENOMIC MEDICINE INR 1.0 [facility] DEPARTMENT OF Comment: PATHOLOGY AND GENOMIC The International Normalized Ratio (INR) is a therapeutic MEDICINE monitoring tool for patients who are stable on oral anticoagulant therapy. An INR of 2.0-3.0 is suggested for deep vein thrombosis/pulmonary embolism. Specimen Blood Performing Organization Address City/State/Zipcode Phone Number [facility] DEPARTMENT OF PATHOLOGY AND [address] [place] [address] Arden Reed Prepare RBC (12/21/2017 8:00 AM CDT) Product name Red Blood Cells -1, [facility] DEPARTMENT OF Leukored PATHOLOGY AND GENOMIC MEDICINE Unit number [id number] [facility] DEPARTMENT OF PATHOLOGY AND GENOMIC MEDICINE Product code [id number] [facility] DEPARTMENT OF PATHOLOGY AND GENOMIC MEDICINE Dispense status Returned to not [facility] DEPARTMENT OF transfused PATHOLOGY AND GENOMIC MEDICINE Blood expiration date [facility] DEPARTMENT OF PATHOLOGY AND GENOMIC MEDICINE Blood type code 7300 [facility] DEPARTMENT OF PATHOLOGY AND GENOMIC MEDICINE Blood type B POSITIVE [facility] DEPARTMENT OF PATHOLOGY AND GENOMIC MEDICINE Product name Red Blood Cells -1, [facility] DEPARTMENT OF Leukored PATHOLOGY AND GENOMIC MEDICINE Unit number [id number] [facility] DEPARTMENT OF PATHOLOGY AND GENOMIC MEDICINE Product code [id number] [facility] DEPARTMENT OF PATHOLOGY AND GENOMIC MEDICINE Dispense status Returned to not [facility] DEPARTMENT OF transfused PATHOLOGY AND GENOMIC MEDICINE Blood expiration date [facility] DEPARTMENT OF PATHOLOGY AND GENOMIC MEDICINE Blood type code 7300 [facility] DEPARTMENT OF PATHOLOGY AND GENOMIC MEDICINE Blood type B POSITIVE [facility] DEPARTMENT OF PATHOLOGY AND GENOMIC MEDICINE Product name Red Blood Cells -1, [facility] DEPARTMENT OF Leukored PATHOLOGY AND GENOMIC MEDICINE Unit number [id number] [facility] DEPARTMENT OF PATHOLOGY AND GENOMIC MEDICINE Product code [id number] [facility] DEPARTMENT OF PATHOLOGY AND GENOMIC MEDICINE Dispense status Returned to not [facility] DEPARTMENT OF transfused PATHOLOGY AND GENOMIC MEDICINE Blood expiration date [facility] DEPARTMENT OF PATHOLOGY AND GENOMIC MEDICINE Blood type code 7300 [facility] DEPARTMENT OF PATHOLOGY AND GENOMIC MEDICINE Blood type B POSITIVE [facility] DEPARTMENT OF PATHOLOGY AND GENOMIC MEDICINE Product name Red Blood Cells -1, [facility] DEPARTMENT OF Leukored PATHOLOGY AND GENOMIC MEDICINE Unit number [id number] [facility] DEPARTMENT OF PATHOLOGY AND GENOMIC MEDICINE Product code [id number] [facility] DEPARTMENT OF PATHOLOGY AND GENOMIC MEDICINE Dispense status Returned to BB not [facility] DEPARTMENT OF transfused PATHOLOGY AND GENOMIC MEDICINE Blood expiration date [id number] [facility] DEPARTMENT OF PATHOLOGY AND GENOMIC MEDICINE Blood type code 7300 [facility] DEPARTMENT OF PATHOLOGY AND GENOMIC MEDICINE Blood type B POSITIVE [facility] DEPARTMENT OF PATHOLOGY AND GENOMIC MEDICINE Performing Organization Address City/[facility] Phone Number [facility] DEPARTMENT OF PATHOLOGY AND [address] [place] [address] GENOMIC MEDICINE Type and screen (12/21/2017 8:00 AM CDT) ABO grouping B [facility] DEPARTMENT OF PATHOLOGY AND GENOMIC MEDICINE Rh type POS [facility] DEPARTMENT OF PATHOLOGY AND GENOMIC MEDICINE Antibody screen (gel) NEG [facility] DEPARTMENT OF PATHOLOGY AND GENOMIC MEDICINE Performing Organization Address City/[facility] Phone Number [facility] DEPARTMENT OF PATHOLOGY AND [address] [place] [address] GENOMIC [facility] CBC with platelet and differential (12/20/2017 9:45 PM CDT) WBC 9.28 4.50 - 11.00 k/uL [facility] DEPARTMENT OF PATHOLOGY AND GENOMIC MEDICINE RBC 3.72 (L) 4.20 - 5.50 m/uL [facility] DEPARTMENT OF PATHOLOGY AND GENOMIC MEDICINE HGB 11.5 (L) 12.0 - 16.0 g/dL [facility] DEPARTMENT OF PATHOLOGY AND GENOMIC MEDICINE HCT 36.1 (L) 37.0 - 47.0 % [facility] DEPARTMENT OF PATHOLOGY AND GENOMIC MEDICINE MCV 97.0 82.0 - 100.0 fL [facility] DEPARTMENT OF PATHOLOGY AND GENOMIC MEDICINE MCH 30.9 27.0 - 34.0 pg [facility] DEPARTMENT OF PATHOLOGY AND GENOMIC MEDICINE MCHC 31.9 31.0 - 37.0 g/dL [facility] DEPARTMENT OF PATHOLOGY AND GENOMIC MEDICINE RDW - SD 50.5 37.0 - 55.0 fL [facility] DEPARTMENT OF PATHOLOGY AND GENOMIC MEDICINE MPV 10.5 8.8 - 13.2 fL [facility] DEPARTMENT OF PATHOLOGY AND GENOMIC MEDICINE Platelet count 190 150 - 400 k/uL [facility] DEPARTMENT OF PATHOLOGY AND GENOMIC MEDICINE Nucleated RBC 0.00 /100 WBC [facility] DEPARTMENT OF PATHOLOGY AND GENOMIC MEDICINE Neutrophils 78.3 (H) 39.0 - 69.0 % [facility] DEPARTMENT OF PATHOLOGY AND GENOMIC MEDICINE Lymphocytes 12.8 (L) 25.0 - 45.0 % [facility] DEPARTMENT OF PATHOLOGY AND GENOMIC MEDICINE Monocytes 8.1 0.0 - 10.0 % [facility] DEPARTMENT OF PATHOLOGY AND GENOMIC MEDICINE Eosinophils 0.2 0.0 - 5.0 % [facility] DEPARTMENT OF PATHOLOGY AND GENOMIC MEDICINE Basophils 0.2 0.0 - 1.0 % [facility] DEPARTMENT OF PATHOLOGY AND GENOMIC MEDICINE Immature granulocytes 0.4Comment: 0.0 - 1.0 % [facility] DEPARTMENT OF "Immature PATHOLOGY AND GENOMIC granulocytes" MEDICINE (promyelocytes, myelocytes, metamyelocytes) Specimen Blood Performing Organization Address City/State/Zipcode Phone Number [facility] DEPARTMENT OF PATHOLOGY AND [address] [place] [address] [employer] [facility] Cv cta pre afib pulmonary vein mapping (11/07/2017 3:34 PM CDT) Narrative Performed At [facility] Nuclear Cardiology and Cardiac CT [address] [place] [address] CTA Chest Non-Coronary with Contrast Report Pat.Name:DIANNE JUÁREZ Pat.ID:[id number] .Date: 11/07/2017 Refer.MD:AYAAN PARK MD Exam Time: 2:58:00 PM Study Type:CTA Chest Non-Coronary W Contrast Height:61inWeight: 214lb BSA: 1.95 m2 DOBAge:1935,82Y Sex: FEMALEBP:132/60 HR:66 bpm Nuclear Tech:ALESHIA Pulido(N)(CT) CPT - 4: CTA Chest non coronary 54036 Nuclear Event ID:[id number] Order ID:[id number] Reason for Study:Pre A-Fib Ablation for Pulmonary Vein Mapping Procedures:CTA Chest Non- Coronary Race:C SUMMARY: Technique: IV contrast was administered and sequential 0.[address] cuts were obtained [facility]. Post-processing and 3D reconstruction were done using the [employer] workstation. Interactive image viewing and volumetric display and analysis were also performed. CTA RESULTS Left Main: A normal sized4.0 mm artery which arises normally from the left sinus of Valsalva and divides into the left anterior descending and circumflex coronary arteries. Mild calcified atherosclerotic plaque is present but without significant stenosis. Left anterior descending (LAD): A normal sized 3.6mm artery which wraps around the apex and gives off one diagonal branch. Mild predominantly calcified atherosclerotic plaque is present in the proximal and mid segments but without significant stenosis. The first diagonal is a 1.7 mm artery which has no significant atherosclerotic plaque. Left circumflex: A normal sized 2.8 mm non-dominant artery which gives off one major obtuse marginal artery before terminating in the AV groove. Mild calcified and non-calcified atherosclerotic plaque is present in the proximal segment but without significant stenosis. The first obtuse marginal is a 2.6 mm bifurcating artery which has mild predominantly calcified atherosclerotic plaque but with no significant stenosis. Right coronary artery: A normal sized 2.8 mm dominant artery which arises normally from the right sinus of Valsalva and gives off several right ventricular branches, the posterior descending artery and the posterolateral artery.No significant atherosclerotic plaque is present. The posterior descending is a 1.5 mm artery which has no significant atherosclerotic plaque. The posterolateral branch is a 1.5 mm bifurcating artery which has no significant atherosclerotic plaque. Stents: None. Bypass Grafts: None. Pulmonary Arteries: The main pulmonary artery is moderately dilated at 3.5 cm with no proximal thrombus identified. Left Atrial and Pulmonary Vein(PV) Dimensions: Left atrial size (A-P diameter) 4.5 cm. Left atrial volume 148 ml Normal PV anatomy Left superior PV19 mm. Left inferior PV 18 mm. Right superior PV 20 mm. Right inferior PV18mm. There is no evidence of the left atrial appendage clot. A PFO is visualized Lipomatous hypertrophy of the interatrial septum Left Ventricular Valve Morphology/Function: Aortic valve is tri-leaflet and there is no evidence of stenosis. Mitral valve is normal without significant regurgitation. Mild mitral annular calcification. Thoracic Aortic Dimensions: No aortic aneurysm or dissection is seen. Aortic root: 3.5 cm. Sinotubular junction 2.7 cm. Mid ascending thoracic aorta 3.6 cm. Descending thoracic aorta 2.4 cm. Pericardium: No pericardial effusion or pericardial thickening. Non-Cardiac Findings: Bilateral pulmonary congestion. Small hiatal hernia. CONCLUSION CT coronary angiography shows mild coronary artery atherosclerosis but no significant stenosis. Normal PV anatomy. There is no evidence of left atrial appendage thrombus. The main pulmonary artery is moderately dilated at 3.5 cm with no proximal thrombus identified. A PFO is visualized STUDY QUALITY The study quality is good. COMMENTS: None. The above report was based on a dedicated Cardiovascular CTA Protocol and interpreted by a Electronic System Engineer.Should a more comprehensive assessment of non-cardiovascular findings be desired, please consult a radiologist.These images are available in the [facility] [email or web address] PACS system. Signed 11/07/2017 06:24 PM Prasad Lutz MD Procedure Note Interface, Radiology Results In - 11/07/2017 6:25 PM CDT Nuclear Cardiology and Cardiac CT [address] [place] [address] CTA Chest Non-Coronary with Contrast Report Pat.Name: DIANNE JUÁREZ.ID: [id number] .Date: 11/07/2017 Refer.MD: AYAAN PARK MD Exam Time: 2:58:00 PM Study Type:CTA Chest Non-Coronary W Contrast Height: 61in Weight: 214lb BSA: 1.95 m2 Age: 2 1935,82Y Sex: FEMALE BP: 132/60 HR: 66 bpm Nuclear Tech:ALESHIA Pulido(N)(CT) CPT - 4: CTA Chest non coronary [address]47 Nuclear Event ID:[id number] Order ID: [id number] Reason for Study:Pre A-Fib Ablation for Pulmonary Vein Mapping Procedures:CTA Chest Non- Coronary Race: C SUMMARY: Technique: IV contrast was administered and sequential 0.[address] cuts were obtained through the chest using the Siem[employer] Som[employer] Force CT scanner. Post-processing and 3D reconstruction were done using the [employer] workstation. Interactive image viewing and volumetric display and analysis were also performed. CTA RESULTS Left Main: A normal sized 4.0 mm artery which arises normally from the left sinus of Valsalva and divides into the left anterior descending and circumflex coronary arteries. Mild calcified atherosclerotic plaque is present but without significant stenosis. Left anterior descending (LAD): A normal sized 3.6mm artery which wraps around the apex and gives off one diagonal branch. Mild predominantly calcified atherosclerotic plaque is present in the proximal and mid segments but without significant stenosis. The first diagonal is a 1.7 mm artery which has no significant atherosclerotic plaque. Left circumflex: A normal sized 2.8 mm non-dominant artery which gives off one major obtuse marginal artery before terminating in the AV groove. Mild calcified and non-calcified atherosclerotic plaque is present in the proximal segment but without significant stenosis. The first obtuse marginal is a 2.6 mm bifurcating artery which has mild predominantly calcified atherosclerotic plaque but with no significant stenosis. Right coronary artery: A normal sized 2.8 mm dominant artery which arises normally from the right sinus of Valsalva and gives off several right ventricular branches, the posterior descending artery and the posterolateral artery. No significant atherosclerotic plaque is present. The posterior descending is a 1.5 mm artery which has no significant atherosclerotic plaque. The posterolateral branch is a 1.5 mm bifurcating artery which has no significant atherosclerotic plaque. Stents: None. Bypass Grafts: None. Pulmonary Arteries: The main pulmonary artery is moderately dilated at 3.5 cm with no proximal thrombus identified. Left Atrial and Pulmonary Vein (PV) Dimensions: Left atrial size (A-P diameter) 4.5 cm. Left atrial volume 148 ml Normal PV anatomy Left superior PV19 mm. Left inferior PV 18 mm. Right superior PV 20 mm. Right inferior PV18mm. There is no evidence of the left atrial appendage clot. A PFO is visualized Lipomatous hypertrophy of the interatrial septum Left Ventricular Valve Morphology/Function: Aortic valve is tri-leaflet and there is no evidence of stenosis. Mitral valve is normal without significant regurgitation. Mild mitral annular calcification. Thoracic Aortic Dimensions: No aortic aneurysm or dissection is seen. Aortic root: 3.5 cm. Sinotubular junction 2.7 cm. Mid ascending thoracic aorta 3.6 cm. Descending thoracic aorta 2.4 cm. Pericardium: No pericardial effusion or pericardial thickening. Non-Cardiac Findings: Bilateral pulmonary congestion. Small hiatal hernia. CONCLUSION CT coronary angiography shows mild coronary artery atherosclerosis but no significant stenosis. Normal PV anatomy. There is no evidence of left atrial appendage thrombus. The main pulmonary artery is moderately dilated at 3.5 cm with no proximal thrombus identified. A PFO is visualized STUDY QUALITY The study quality is good. COMMENTS: None. The above report was based on a dedicated Cardiovascular CTA Protocol and interpreted by a Electronic System Engineer. Should a more comprehensive assessment of non-cardiovascular findings be desired, please consult a radiologist. These images are available in the [facility] [email or web address] PACS system. Signed 11/07/2017 06:24 PM Prasad Lutz MD Performing Organization Address City/State/Zipcode Phone Number [employer] [address] [place] [address] Echocardiogram transesophageal (11/07/2017 3:16 PM CDT) Narrative Performed At [facility] Transesophageal Echo Report [id number] , [address]Name:DIANNE JUÁREZ.ID:[id number] .Date: 11/07/2017 Refer.MD:AYAAN PARK MD Exam Time: 12:48:00 PM Study Type:RADHA Height:60inWeight: 214lb BSA: 1.92 m2 DOBAge:1935,82Y Sex: FEMALEBP:145/83 HR:64 bpmSonogrphr: Jevon Thakur MD Pat. Stat.:OutpatientStudy Status:Final Echo Event ID:[id number] Order ID:[id number] Reason for Study:Atrial fibrillation History / Clinical:Diabetes, Hyperlipidemia, Hypertension, Arrhythmias, Atrial Fibrillation Procedures:Transesophageal Echo with Colorflow Doppler Race:C SUMMARY: No thrombus or mass is visualized in the LA or LA appendage. FINDINGS: RADHA:The attending maintenance mechanic helper performed the RADHA procedure and waspresent for the entire duration. The patient was counseledand an informed consent was obtained. Topical and intravenousanesthesia was administered. The esophagus was intubatedwithout difficulty. The probe was passed to the gastricfundus and all standard echocardiographic views wereobtained. The patient tolerated the procedure well. LV: LV size is normal. LV EF is normal. Overall wall motion is normal.Estimated EF is 60-64%. RV: RV size is normal. RV systolic function is normal. LA: LA volume is enlarged. No thrombus or mass is visualized in theLA or LA appendage. RA: RA size is normal. AO: Aortic root diameter is normal in size. Mild atherosclerotic changesseen in the aortic arch and descending aorta. NAYELY: No pericardial effusion. AV: No structural AV abnormalities noted. MV: No structural MV abnormalities noted. Mild mitral regurgitation. PV: No structural PV abnormalities noted. Mild pulmonic regurgitation. TV: No structural TV abnormalities noted. RADHA: Anesthesia: Moderate SedationASA Class: 3 Physician: Akash Akins MD Atm Manager: Jevon Thakur MD Pre TEEBP HR Post RADHA BP HR 145/83 54646/72 62 Meds:Viscous xylocaine, Cetacaine spray to oropharynx, Versed 2 mg IV, Fentanyl 50 mcg IV Complications: None Condition: Stable MEASUREMENTS: 2D Parasternal [place] LVOT 1.8 cmAo Rtd 3.9 cm Ao An1.9 cm Signed 11/07/2017 05:15 PM Akash Akins MD Procedure Note Interface, Radiology Results In - 11/07/2017 5:15 PM CDT Transesophageal Echo Report [id number], [place], [place] [address] Pat.Name: DIANNE JUÁREZ.ID: [id number] .Date: 11/07/2017 Refer.MD: AYAAN PARK MD Exam Time: 12:48:00 PM Study Type:RADHA Height: 60in Weight: 214lb BSA: 1.92 m2 Age: 2 1935,82Y Sex: FEMALE BP: 145/83 HR: 64 bpm Sonogrphr: Jevon Thakur MD Pat. Stat.:Outpatient Study Status:Final Echo Event ID:[id number] Order ID: [id number] Reason for Study:Atrial fibrillation History / Clinical:Diabetes, Hyperlipidemia, Hypertension, Arrhythmias, Atrial Fibrillation Procedures:Transesophageal Echo with Colorflow Doppler Race: C SUMMARY: No thrombus or mass is visualized in the LA or LA appendage. FINDINGS: RADHA: The attending maintenance mechanic helper performed the RADHA procedure and was present for the entire duration. The patient was counseled and an informed consent was obtained. Topical and intravenous anesthesia was administered. The esophagus was intubated without difficulty. The probe was passed to the gastric fundus and all standard echocardiographic views were obtained. The patient tolerated the procedure well. LV: LV size is normal. LV EF is normal. Overall wall motion is normal. Estimated EF is 60-64%. RV: RV size is normal. RV systolic function is normal. LA: LA volume is enlarged. No thrombus or mass is visualized in the LA or LA appendage. RA: RA size is normal. AO: Aortic root diameter is normal in size. Mild atherosclerotic changes seen in the aortic arch and descending aorta. NAYELY: No pericardial effusion. AV: No structural AV abnormalities noted. MV: No structural MV abnormalities noted. Mild mitral regurgitation. PV: No structural PV abnormalities noted. Mild pulmonic regurgitation. TV: No structural TV abnormalities noted. RADHA: Anesthesia: Moderate Sedation ASA Class: 3 Physician: Akash Akins MD Atm Manager: Jevon Thakur MD Pre RADHA BP HR Post RADHA BP HR 145/83 64 144/72 62 Meds: Viscous xylocaine, Cetacaine spray to oropharynx, Versed 2 mg IV, Fentanyl 50 mcg IV Complications: None Condition: Stable MEASUREMENTS: 2D Parasternal [place] LVOT 1.8 cm Ao Rtd 3.9 cm Ao An 1.9 cm Signed 11/07/2017 05:15 PM Akash Akins MD Performing Organization Address City/State/[facility] Phone Number [employer] [address] [place] [address] after 04/08/2017 Insurance Payer Benefit Plan / Group Subscriber ID Type Phone Address MEDICARE MEDICARE PART A AND B xxxxxxxxxxx Medicare [place], [place] Advance Directives Patient has advance care planning documents on file. For more information, please contact:[facility] [place] [address]
--- OUTSIDE RECORDS SUMMARY | 2018-04-09 12:07 | XMS REPORT | Continuity of Care Document ---
:1935 Author Organization Interface Problems Problem Status Onset Classification Date Comments Source Date Reported AFIB Active 01/06/[address] Diabetes Active 03/24/19 Finding 03/24/[address],[facility] Anemia Active 03/24/19 Finding 03/24/[address] [facility] Hyperlipidemia Active 03/24/19 Finding 03/24/[address] [facility] Hypothyroidism Active 03/24/19 Finding 03/24/[address] [facility] Back pain, Active 03/24/19 Finding 03/24/[address] chronic [facility] Diabetic ulcer of Active 03/24/19 Finding 03/24/[address] right ankle [facility] Hypertension Active 03/24/19 Finding 03/24/[address],[facility] Cellulitis, leg Resolved 01/26/20 Finding 03/24/[address] [facility] Dehydration Active 11/27/19 Finding 03/24/[address] [facility] UTI Active 05/15/19 Finding 03/24/[address] [facility] Vomiting Resolved 05/15/19 Finding 03/24/[address] [facility] DX:ABDOMINAL Active 06/26/19 [facility] STRESS DYSPNEA [address] [place] [address] Atrial Resolved Problem 06/29/2014 [facility] fibrillation [facility] High cholesterol Resolved Problem 06/29/2014 [facility] Thyroid<sup>1</starr Resolved Problem 06/29/2014 1[facility]po [facility] Urolithiasis Active Finding 03/24/[address] [facility] Urosepsis Active Finding 03/24/[address] [facility] OTHER FORMS OF Active [facility] Medications Medication Details Route Status Patient Ordering Order Source Instructions Provider Date Lisinopril DAILY Active [facility] [place] Furosemide DAILY Active [facility] [place] Darifenacin AT BEDTIME Active [facility] [place] rivaroxaban 20 20 mg=1 Active [facility] MG Oral Tablet tab, PO, 015 Medical [Xarelto] QPM, 0 Center Refill(s) glimepiride 1 mg 1 mg=1 Active [place] oral tablet tab, PO, 015 Medical BID, # 30 Center tab, 0 Refill(s) lisinopril 2.5 2.5 mg=1 Active [facility] mg oral tablet tab, PO, 015 Medical Daily, # Center 30 tab, 0 Refill(s) levothyroxine 150 Active [facility] 150 mcg (0.15 microgram= 015 Medical mg) oral tablet 1 tab, PO, Center Daily, # 30 tab, 0 Refill(s) simvastatin 10 10 mg=1 Active [facility] mg oral tablet tab, PO, 015 Medical Bedtime, # Center 30 tab, 0 Refill(s) solifenacin 10 mg=1 Active [facility] succinate 10 MG tab, PO, 015 Medical Oral Tablet Daily, # Center [VESICARE] 30 tab, 0 Refill(s) metoprolol 25 mg=1 Active [facility] tartrate 25 mg tab, PO, 015 Medical oral tablet BID, # 180 Center tab, 0 Refill(s) Aspirin 81 MG 81 mg=1 Active [facility] Enteric Coated tab, PO, 015 Medical Tablet Daily, # 0 Center tab, 0 Refill(s) Metoprolol TWICE Active [facility] St[facility] Tartrate DAILY 014 [facility] [place] Rivaroxaban DAILY Active [facility] 0[facility] [place] Clindamycin Hcl THREE Active [facility] St[facility] TIMES A 012 [facility] [place] Glimepiride TWICE Active [facility] St[facility] DAILY 012 [facility] [place] Levothyroxine DAILY Active [facility] St[facility] Sodium 012 [facility] [place] Lisinopril DAILY Active [facility] [place] Simvastatin AT BEDTIME Active [facility] 0[facility] [place] Sulfamethoxazole TWICE Active [facility] /Trimethoprim DAILY 012 [facility] [place] Allergies, Adverse Reactions, Alerts Substance Category Reaction Severity Reaction Status Date Comments Source type Reported Sulfa Rash Allergy to Active [facility] St. (Sulfonamid Substance 7 [facility] [place] Antibiotics ) tape Rash Mild Allergy to Active [facility] St[facility] Substance 7 [facility] [place] Adhesives Unknown Allergy to Active [facility] Substance 7 [facility] [place] Adhesive Assertion Drug Active [facility] sulfa drugs Assertion Drug Active [facility] Immunizations Immunization Date Given Site Status Last Updated Comments Source Results Order Name Results Value Reference Date Interpretation Comments Source Range Laboratory Hemoglobin 9.7 g/dL 12.0 - 03/[address] [facility] [address] Studies 15.0 [facility] [place] Laboratory Hematocrit 30.7 % 36.0 - 03/24 [facility]. Studies 45.0 [facility] [place] [facility] Iron Level 7.0 ug/dL 28 - 170 03/23 [facility] [address] Studies /2017 [facility] [place] [facility] Bedside 145 mg/dl 65 - 120 03/23 [facility]. Studies Glucose /2017 [facility] [place] Hemoglobin 6.6 % 4 - 6.0 03/23 [facility]. Studies A1c /2017 [facility] [place] Laboratory White Blood 6.5 K/uL 4.3 - 10.9 03/[address] [facility] [address] Studies Count /2017 [facility] [place] Laboratory Red Cell 18.0 % 12.1 - 03/[address] [facility] [address] Studies Distribution 15.2 [facility] Width [place] Laboratory Red Blood 3.47 M/uL 3.86 - 03/23 [facility]. Studies Count 4.86 [facility] [place] [facility] Platelet 275 K/uL 152 - 406 03/23 [facility]. Studies Count /2017 [facility] [place] Laboratory Neutrophils 67.6 % 41.7 - 03/[address] [facility] [address] Studies % 73.7 /2017 [facility] [place] Laboratory Monocytes % 12.8 % 3.3 - 12.3 03/[address] [facility] [address] Studies /2017 [facility] [place] Laboratory Mean 8.4 fL 7.6 - 11.3 03/23 St[facility] Studies Platelet [facility] Volume [place] Laboratory Mean 71.6 fL 80 - 100 03/23 St[facility] Studies Corpuscular /2017 [facility] Volume [place] Laboratory Mean 30.8 g/dL 32.0 - 03/23 St[facility] Studies Corpuscular 36.0 [facility] Hemoglobin [place] Concent Laboratory Mean 22.1 pg 27.0 - 03/23 . Studies Corpuscular 35.0 [facility] Hemoglobin [place] Laboratory Lymphocytes 18.0 % 15.3 - 03/23 St. Studies % 44.8 [facility] [place] [facility] Eosinophils 1.2 % 0 - 4.4 03/23 St. Studies % /2017 [facility] [place] Laboratory Basophils % 0.4 % 0 - 1.3 03/23 St[facility] Studies [facility] [place] Laboratory Absolute 4.4 K/uL 1.8 - 8.0 03/23 [facility] [address] Studies Neutrophil [facility] [place] [facility] Absolute 0.8 K/uL 0.1 - 1.3 03/23 [facility] [address] Studies Monocytes [facility] (CBC) [place] [facility] Absolute 1.2 K/uL 0.7 - 4.9 03/23 [facility] [address] Studies Lymphocytes [facility] (CBC) [place] Laboratory Absolute 0.1 K/uL 0 - 0.5 03/23 [facility] [address] Studies Eosinophils [facility] (CBC) [place] Laboratory Absolute 0.0 K/uL 0 - 0.5 03/[address] [facility] [address] Studies Basophils [facility] (CBC) [place] Laboratory Sodium Level 141 mEq/L 135 - 145 03/23 St[facility] Studies [facility] [place] [facility] Serum Total 5.5 g/dL 6.0 - 8.3 03/23 [facility] [address] Studies Protein [facility] [place] [facility] Prealbumin 14.7 mg/dl 18 - 38 03/[address] [facility] [address] Studies [facility] [place] [facility] Potassium 4.4 mEq/L 3.6 - 5.0 03/[address] [facility] [address] Studies Level /2017 [facility] [place] Laboratory Glucose 106 mg/dL 65 - 120 03/[address] [facility] [address] Studies Level /2017 [facility] [place] Laboratory Estimat 72 mL/min 90 03/23 [facility] [address] Studies Glomerular /2017 [facility] Filtration [place] Rate Laboratory Creatinine 0.77 mg/dL 0.44 - 03/23 [facility] [address] Studies 1.00 [facility] [place] Laboratory Chloride 106 mEq/L 101 - 111 03/23 [facility] [address] Studies Level /2017 [facility] [place] Laboratory Carbon 29 mEq/L 21 - 31 03/23 [facility] [address] Studies Dioxide /2017 [facility] Level [place] Laboratory Calcium 9.0 mg/dL 8.5 - 10.5 03/23 [facility] [address] Studies Level /2017 [facility] [place] Laboratory Blood Urea 18 mg/dL 6 - 20 03/23 [facility]. Studies Nitrogen /2017 [facility] [place] Laboratory Albumin 3.5 g/dL 3.2 - 5.5 03/23 [facility]. Studies /2017 [facility] [place] Laboratory Segmented 86 % 40 - 80 01/30 [facility]. Studies Neutrophils [facility] [place] [facility] Rouleau Rouleau 01/30 [facility] Studies [facility] [place] [facility] Polychromasi Polychroma 01/30 [facility]. Studies a iglesia [facility] [place] [facility] Ovalocytes Ovalocytes 01/30 [facility]. Studies [facility] [place] [facility] Monocytes 3 % 0 - 10 01/30 [facility]. [facility] [place] [facility] Lymphocytes 11 % 15 - 42 01/30 [facility]. [facility] [place] [facility] Hypersegment Hypersegme 01/30 [facility]. Studies ed nted [facility] Neutrophils Neutrophil [place] [facility] Blood Blood 01/30 [facility]. Studies Morphology Morphology [facility] - Comment Comment [place] [facility] Anisocytosis Anisocytos 01/30 [facility]. Studies is [facility] [place] BLOOD BANK Antibody Negative 06/26 [facility] RESULTS [facility] (06/26/14 5:48 AM) Center BLOOD BANK ABO/Rh B POS 06/26 [place] RESULTS /2014 [facility] Center CHEM PANEL Magnesium 2.0 mg/dL 1.8 - 2.4 06/26 [facility] ELECTROLYT AGAP 13.8 meq/L 10.0 - 06/26 [facility] 20.0 [facility] ELECTROLYT eGFR 70 06/26 1Result Comment: The eGFR is calculated using the CKD-EPI formula. In most young, healthy individuals the eGFR will be >90 mL/ min/1.73m2. The eGFR declines with age. An eGFR of 60-89 may be normal in [facility] mL/min/1. some populations, particularly the elderly, for whom the CKD-EPI formula has not been extensively validated. Use of the eGFR is not recommended in the following populations: [address] Individuals with unstable creatinine concentrations, including patients and those with serious co-morbid conditions. Patients with extremes in muscle mass or diet. The data above are obtained from the National Kidney Disease Education Program (NKDEP) which additionally recommends that when the eGFR is used in patients with extremes of body mass index for purposes of drug dosing, the eGFR should be multiplied by the estimated BMI. ELECTROLYT Calcium Lvl 8.8 mg/dL 8.5 - 10.5 06/26 [facility] ELECTROLYT Chloride Lvl 105 meq/L 95 - 109 06/26 [facility] ELECTROLYT CO2 26 meq/L 24 - 32 06/26 [facility] ELECTROLYT Potassium 3.8 meq/L 3.5 - 5.1 06/26 [facility] ELECTROLYT Sodium Lvl 141 meq/L 135 - 145 06/26 [facility] ELECTROLYT Creatinine 0.8 mg/dL 0.5 - 1.4 06/26 [facility] ELECTROLYT BUN 16 mg/dL 7 - 22 06/26 [facility] ELECTROLYT Glucose Lvl 143 mg/dL 70 - 99 06/26 2Interpretive Data: Adult reference range values reflect the clinical guidelines [facility] of the [place] [employer]. [facility] HEMATOLOGY Eosinophils 1.7 % 0.0 - 4.0 06/26 [facility] HEMATOLOGY Basophils 0.5 % 0.0 - 1.0 06/26 [facility] HEMATOLOGY Lymphocytes 20.0 % 20.0 - 06/26 [facility] 40.0 Medical Center HEMATOLOGY Monocytes 11.3 % 2.0 - 12.0 06/26 [facility] HEMATOLOGY Segs 66.5 % 45.0 - 06/26 75.0 [facility] HEMATOLOGY Eosinophils 0.1 K/CMM 0.0 - 0.5 06/26 # /2014 [facility] HEMATOLOGY Segs-Bands # 4.7 K/CMM 1.5 - 8.1 06/26 [facility] HEMATOLOGY Lymphocytes 1.4 K/CMM 1.0 - 5.5 06/26 # [facility] HEMATOLOGY Monocytes # 0.8 K/CMM 0.0 - 0.8 06/26 [facility] HEMATOLOGY INR 1.08 0.85 - 06/26 4Interpretive Data: RECOMMENDED RANGES FOR PROTIME INR: [facility] 1. 2.0-3.0 for most medical and surgical thromboembolic states. Medical 2.5-3.5 for artificial heart valves and recurrent embolism. Center INR SHOULD BE USED ONLY FOR PATIENTS ON STABLE ANTICOAGULANT THERAPY. HEMATOLOGY PT 14.1 s 12.0 - 06/26 14.7 [facility] HEMATOLOGY PTT 30.5 s 22.9 - 06/26 5Interpretive 35.8 Data: Heparin [facility] Therapeutic Center Range: 57 - 92 Seconds HEMATOLOGY MPV 9.1 fL 7.4 - 10.4 06/26 [facility] HEMATOLOGY MCH 29.5 pg 27.0 - 06/26 31.0 [facility] HEMATOLOGY MCV 89.3 fL 80.0 - 06/26 98.0 [facility] HEMATOLOGY Platelet 195 K/CMM 133 - 450 06/26 [facility] HEMATOLOGY RDW 15.5 % 11.5 - 06/26 14.5 [facility] HEMATOLOGY MCHC 33.0 g/dL 32.0 - 06/26 36.0 [facility] HEMATOLOGY WBC 7.1 K/CMM 3.7 - 10.4 06/26 /2014 [facility] HEMATOLOGY Hgb 12.7 g/dL 12.0 - 06/26 16.0 [facility] HEMATOLOGY RBC 4.30 M/CMM 4.20 - 06/26 [place] 5.40 [facility] HEMATOLOGY Hct 38.4 % 36.0 - 06/26 [facility] 48.0 /2014 [facility] LIPIDS CHD Risk 6.12 3.90 - 06/26 [facility] 5.80 [facility] LIPIDS VLDL 77 06/26 [facility] LIPIDS LDL 51 mg/dL <=99 mg/dL 06/26 [facility] (Calculated) [facility] LIPIDS HDL 25 mg/dL >=61 mg/dL 06/26 [facility] LIPIDS Trig 386 mg/dL <=149 06/26 [facility] mg/dL [facility] LIPIDS Chol 153 mg/dL <=199 06/26 3Result [facility] mg/dL Comment: [facility] Slightly Hemolyzed. Vital Signs Vital Sign Value Date Comments Source Heart Rate 59 03/24/[address] [facility] Systolic (mm Hg) 134 03/24/[address] [facility] Diastolic (mm Hg) 69 03/24/[address] [facility] Temperature Oral (F) 97.6 F 03/24/[address] [facility] Respitory Rate 18 03/24/[address] [facility] Height 62 03/23/[address] [facility] Weight 225 03/23/[address] [facility] Systolic (mm Hg) 161 06/26/2014 [facility] Diastolic (mm Hg) 71 06/26/2014 [facility] Systolic (mm Hg) 147 06/26/2014 [facility] Diastolic (mm Hg) 71 06/26/2014 [facility] Respitory Rate 16 06/26/2014 [facility] Systolic (mm Hg) 131 06/26/2014 [facility] Diastolic (mm Hg) 62 06/26/2014 [facility] Respitory Rate 16 06/26/2014 [facility] Respitory Rate 16 06/26/2014 [facility] Weight 109.545 06/26/2014 [facility] Height 157.48 cm 06/26/2014 [facility] BMI Calculated 44.17 06/26/2014 [facility] Temperature Oral (F) 97.7 F 06/26/2014 [facility] Encounters Location Location Encounter Encounter Reason Attending ADM DC Status Source Details Type Number For Provider Date Date Visit [facility] [id number] Ayaan 06/26 06/26 [facility] [place]ardo /2014 /[address] [place] [facility] Registered [id number] 12/[address] [facility]2016 [facility] [place] [facility] [id number] 01/[address] [facility]2016 [facility] [place] [facility] St[facility] Departed [id number] 02/06 02/[address] [facility] Surgical /2016 [facility] [place] [facility] [place] [facility] St[facility] Registered [id number] 03/[address] [facility] Recurring [facility]2017 [facility] [place] [facility] St[facility] Discharged [id number] 03/23 03/[address] [facility]2017 [facility] [place] Procedures Procedure Code Date Perfomer Comments Source Anaerobic Blood 03/23/[address] [facility]ie - Culture [place] Aerobic Blood 03/23/[address] [facility] [address] Packer - Culture [place] OCCLUSION OF [id number] 02/06/[address] [facility] [address] Packer - LOWER VEIN, OPEN [place] APPROACH TRANSFER RIGHT [id number] 02/06/[address] [facility] [address] Packer - LOWER LEG SKIN, [place] EXTERNAL APPROACH VASCULAR SURGERY [id number] 02/06/2017 [facility] St[facility] P[facility] - PROCEDURE [place] Back [id number] 1back surgery [facility]<sup>1</sup> with shaved Center off spur Carpal tunnel [id number] [facility] Gallbladder [id number] [facility] Kidney stone [id number] [facility] Knee replacement [id number] [facility]
[2018-04-09 12:39] LABS: Absolute Lymphocytes (CBC) 0.8 K/uL (0.7-4.9); Absolute Monocytes 0.4 K/uL (0.1-1.3); Absolute Neutrophil 7.6 K/uL (1.8-8.0); Basophils % 0.1 % (0-1.3); Eosinophils % 0.2 % (0-4.4); Hematocrit 39.4 % (36.0-45.0); Lymphocytes % 9.2 % (15.3-44.8); Monocytes % 4.1 % (3.3-12.3); RBC Red Blood Cell Count 4.34 M/uL (3.86-4.86)
[2018-04-09 12:41] VITALS: BMI 38.7
[2018-04-09 12:57] LABS: Albumin 3.8 g/dL (3.4-5.0); Bilirubin Total 0.5 mg/dL (0.2-1.0)
--- NOTE | 2018-04-09 13:33 | RAD REPORT ---
EXAM DESCRIPTION: RAD - Chest Pa And Lat (2 Views) - 04/09/2018 1:26 pm CLINICAL HISTORY: Dyspnea COMPARISON: January 05 TECHNIQUE: PA and lateral views of the chest were obtained. FINDINGS: The lungs are fibrotic as a baseline. Interstitial pattern is not clearly different from c omparison. No peripheral mass or consolidation. Heart size is normal and central vasculature is wit hin normal limits. No pleural effusion or pneumothorax seen. No acute bony finding noted. No aorti c abnormality. IMPRESSION: No acute cardiopulmonary process. Chronic interstitial lung disease is similar to 2018.
--- NOTE | 2018-04-09 17:27 | EKG ---
Test Date: 2018-04-09 Test Time: 12:37:33 Science Professor: MARAGRITO MEASUREMENT RESULTS: Intervals: Rate: 54 MT: QRSD: 78 QT: 446 QTc: 422 [place]: P: MT: QRS: -31 T: -10 INTERPRETIVE STATEMENTS: Atrial fibrillation with slow ventricular response Left axis deviation Abnormal ECG Compared to ECG 02/03/2017 11:31:43 Left-axis deviation now present Electronically Signed On 04-09-18 17:26:28 GOLD NIB GRINDER by Oleg Tucker
--- NOTE | 2018-04-09 18:43 | RAD REPORT ---
EXAM DESCRIPTION: CT - Chest For Pe Angio - 04/09/2018 6:24 pm CLINICAL HISTORY: Chest pain. pe? COMPARISON: CTANGIO CHEST FOR PE dated 03/14/2013 TECHNIQUE: CT angiogram of the pulmonary arteries was performed with MIP. All CT scans are performed using dose optimization technique as appropriate and may include automated exposure control or mA/KV adjustment according to patient size. FINDINGS: No evidence of pulmonary thromboembolism. No acute aortic finding demonstrated. Mild cardiomegaly. Mild ground-glass lung opacities bilaterally. No focal consolidation typical of pneumonia. No significant pericardial or pleural fluid. No concerning bony finding. Small hiatal hernia. IMPRESSION: No evidence of pulmonary thromboembolism. Mild CHF.
[2018-04-09] MEDS ORDERED: FUROSEMIDE 20 MG/ 2ML VIAL IV ONE (20:20)
[2018-04-09] MEDS ORDERED: ATORVASTATIN 10 MG TAB PO SCH (21:00)
[2018-04-09] MEDS: METOPROLOL TAR 25 MG TAB PO SCH (21:00)
[2018-04-09] MEDS: FAMOTIDINE 20 MG TAB PO SCH (21:00)
[2018-04-09] MEDS: GLIMEPIRIDE 2 MG TABLET PO SCH (21:00)
[2018-04-10 00:45] VITALS: O2SAT 98
[2018-04-10] MEDS ORDERED: PANTOPRAZOLE 40MG TABLET PO SCH (06:30)
[2018-04-10] MEDS ORDERED: LEVOTHYROXINE SOD 0.075 MG TAB PO SCH (06:30)
[2018-04-10] MEDS: METOPROLOL TAR 25 MG TAB PO SCH (09:00)
[2018-04-10] MEDS ORDERED: CLOPIDOGREL 75 MG TABLET PO SCH (09:00)
[2018-04-10] MEDS ORDERED: ASPIRIN EC 81 MG TAB PO SCH (09:00)
[2018-04-10] MEDS: GLIMEPIRIDE 2 MG TABLET PO SCH (09:00)
[2018-04-10] MEDS ORDERED: LISINOPRIL 10 MG TAB PO SCH (09:00)
[2018-04-10] MEDS ORDERED: INDOMETHACIN 25 MG CAP PO SCH (09:00)
[2018-04-10] MEDS: FAMOTIDINE 20 MG TAB PO SCH (09:00)
[2018-04-10] MEDS ORDERED: REGADENOSON 0.4 MG/5 ML SYR IV ONE (10:21)
[2018-04-10] MEDS ORDERED: ENOXAPARIN 100 MG/ML SYR SQ ONE (10:45)
--- NOTE | 2018-04-10 12:20 | CON ---
History Of Present Illness: Ms. Weinberg has been feeling bad for months, definitely not an acute thin g. She went to see Dr. Neely because of shortness of breath. She is short of breath when she lies fl at, short of breath when she exerts herself. Denies having any chest pain, and today is really not d ifferent from the way it has been for 4-6 months. She has underlying diabetes, morbid obesity, hypot hyroidism, dyslipidemia, hypertension. She has never had myocardial infarction or stroke. She saw a contour path tape mill operator in [place] several years ago. I told her she did not have blocked arteries. Medications: Outpatient medications are levothyroxine, simvastatin, lisinopril, metoprolol, glimepir ivan, Plavix, indomethacin, famotidine, lansoprazole, aspirin, and Lasix. Allergies: SHE IS ALLERGIC TO SULFA, ANTIBIOTICS, AND ADHESIVE TAPE AND SUCH THINGS. Social History: She uses no tobacco. Rare alcohol. No illegal drugs. Physical Examination: General: 5 feet 2 inches, 211 pounds. HEENT: Unremarkable. Lungs: Clear. Heart: Reveals no significant murmur. Abdomen: Soft. Extremities: 2+ edema. She says she feels much better today than yesterday. She has not received a ny breathing treatments. She has received intravenous Lasix and had a modest diuresis. Impression: The patient probably has congestive heart failure. Her N-terminal proBNP is elevated. We need to see what her ejection fraction is and see what the pharmacological stress test is as well as coronary artery disease. She might benefit from a cardiac cath. I will wait for what the stress test tells us before proceeding to that, but I think she probably needs to be on sodium restriction a nd diuretics in addition to the medicine she is on, namely the lisinopril and metoprolol. SH/MODL Voice ID: [id number] Report ID: [id number]
--- NOTE | 2018-04-10 14:37 | RAD REPORT ---
EXAM DESCRIPTION: NM - Rest Stress Cardiac Imaging - 04/10/2018 2:27 pm CLINICAL HISTORY: CP Chest pain. COMPARISON: ECHOCARDIOGRAM dated 09/05/2011 TECHNIQUE: The patient was administered approximately 10mCi of Tc 99m Sestamibi prior to resting SPE CT imaging of the heart. The patient was then administered approximately 30 mCi of Tc 99m Sestamibi f ollowing exercise or pharmacologic stress. Multiplanar SPECT images were reviewed. FINDINGS: No stress induced ischemic defect is seen to suggest stress induced ischemia. No fixed def ect is seen to suggest hibernating myocardium or scarred myocardium. The end diastolic volume is 76 ml, the end systolic volume is 23 ml, and the ejection fraction is 70 %. IMPRESSION: No stress induced ischemia.
--- NOTE | 2018-04-10 15:03 | CON ---
CARDIOLOGY CONSULT An 82-year-old woman. Attending Physician: Dr. Rudd. Chief Complaint: Shortness of breath. History Of Present Illness: Ms. Juárez has been feeling just the way she is now for the last 6 month s. She went to see Dr. Rudd and apparently she appeared to be ill at that time. Today, she says italia betty feels back to normal and is anxious to go home. She did agree to stay and do testing. Since being in the hospital, she has been found to have atrial fibrillation and abnormal troponins. Ms. Juárez has a long history of diabetes, hypertension, obesity. She has never had myocardial infar ction or stroke. Some physician told her in the past that her arteries were good. I am not sure wha t kind of tests were done. Her EKG shows AFib. So, we are going to anticoagulate her, control her h eart rate, and do a nuclear stress test and echo, and see what we learn. Probably, she will need to be on chronic medical therapy to control what looks like diastolic heart failure. There may be some CAD involved as well. We will see what our tests show. ITALIA/JON Voice ID: [id number] Report ID: [id number]
[2018-04-10 16:55] VITALS: BP 135/60; TEMP 97
--- NOTE | 2018-04-10 17:28 | ECHO ---
HEIGHT: 5 ft 2 in WEIGHT: 211 lb 12.8 oz DATE OF STUDY: 04/10/[address]: Darren Rudd MD 2-DIMENSIONAL: YES M.MODE: YES DOPPLER: YES COLOR FLOW: YES TDS: PORTABLE: DEFINITY: BUBBLE STUDY: DIAGNOSIS: POSSIBLE THROMBUS CARDIAC HISTORY: CATHERIZATION: NO SURGERY: NO PROSTHETIC VALVE: NO PACEMAKER: NO MEASUREMENTS (cm) DIASTOLIC (NORMALS) SYSTOLIC (NORMALS) IVSd 1.1 (0.6-1.2) LA Diam 4.5 (1.9-4.0) LVEF 66% LVIDd 4.8 (3.5-5.7) LVIDs 3.0 (2.0-3.5) %FS 36% LVPWd 1.3 (0.6-1.2) Ao Diam 2.8 (2.0-3.7) 2 DIMENSIONAL ASSESSMENT: RIGHT ATRIUM: NORMAL LEFT ATRIUM: DILATED RIGHT VENTRICLE: NORMAL LEFT VENTRICLE: NORMAL TRICUSPID VALVE: NORMAL MITRAL VALVE: MITRAL ANNULAR CALCIFICATION PULMONIC VALVE: NORMAL AORTIC VALVE: NORMAL PERICARDIAL EFFUSION: NONE AORTIC ROOT: NORMAL LEFT VENTRICULAR WALL MOTION: NORMAL DOPPLER/COLOR FLOW: MILD TRICUSPID REGURGITATION. MILD PULMONARY HYPERTENSION. ESTIMATED RIGHT VENTRICULAR SYSTOLIC PRESSURE 43 mmHg. COMMENTS: NORMAL LEFT VENTRICULAR EJECTION FRACTION. DILATED LEFT ATRIUM. MITRAL ANNULAR CALCIFICATION. MILD TRICUSPID REGURGITATION. MILD PULMONARY HYPERTENSION. ATRIAL FIBRILLATION HEART RATE 65 BEATS PER MINUTE. TECHNOLOGIST: HENNA CALDERON
--- NOTE | 2018-04-10 20:48 | HP ---
Date of Admission: 04/09/2018 Chief Complaint: Shortness of breath. History Of Present Illness: An 82-year-old female was brought to the office with dyspnea. The patie nt was examined. She was found to have few scattered wheezes. The patient is admitted for observati on to manage this symptoms. Past Medical History: Positive for type 2 diabetes, hypertension, hypothyroidism, hyperlipidemia, an d chronic atrial fibrillation. Past Surgical History: Positive for kidney stone removal, chronic UTI, left knee surgery, back surge ry, gallbladder surgery, cataract surgery. Family History: Diabetes present. Personal History: Allergic to sulfonamides and adhesives. Review of Systems: No fever, chills, or rigors. Physical Examination: General: Revealed 82-year-old female, alert for her age. HEENT: Negative. Neck: Supple. JVD negative. Chest: Scattered wheezes. Heart: Irregularity noted. Abdomen: Soft, nontender. Extremities: Mild pedal edema. Laboratory Data: White count normal. D-dimer elevated. BNP elevated. Chest x-ray, increased pulmo nary markings. CAT scan of the chest, . Assessment: 1.Decompensated heart disease. 2.Rule out cardiac thrombus. 3.Type 2 diabetes. 4.Hypertension. 5.Hypothyroidism. 6.Chronic atrial fibrillation. 7.Hyperlipidemia. Plan: The patient has received IV Lasix yesterday. She is feeling better. She is due to have a Car diology consult and echocardiogram done. ELYSSA/JON Voice ID: [id number]
[2018-04-10] MEDS ORDERED: ENOXAPARIN 80 MG/0.8 ML SQ SCH (21:00)
[2018-04-10] MEDS ORDERED: ENOXAPARIN 100 MG/ML SYR SQ SCH (21:00)
--- NOTE | 2018-04-11 07:58 | TREADPHA ---
DX: CHEST PAIN Date of Study: 04/10/2018 Ht: 5 2 Wt: 211 lb 12.8 oz Consulting Physician: JUANY MEDICATIONS: ASPIRIN, LIPITOR, AMARYL, SYNTHROID, PRINIVIL, LOPRESSOR, PROTONIX HISTORY: 82 YEAR OLD FEMALE WITH COMPLAINTS OF CHEST PAIN. HISTORY OF HYPOTHYROIDISM, HIGH CHOLESTEROL, ATRIAL FIBRILLATION, HYPERTENSION AND DIABETES. PHYSICIAL EXAMINATION: RESTING B.P.: 166/86 RESTING H.R.: 65 RESTING EKG: ATRIAL FIBRILLATION, OTHERWISE NORMAL PROTOCOL: LEXISCAN EXERCISE TIME: 3:30 B.P. AT PEAK STRESS: 138/63 IMPRESSION: LEXISCAN INJECTED. CARDIOLITE INJECTED PER PROTOCOL. SEE NUCLEAR MEDICINE REPORT. NO SUPRAVENTRICULAR TACHYCARDIA. NO VENTRICULAR TACHYCARDIA. OCCASIONAL PREMATURE ATRIAL COMPLEXES THROUGHOUT PROCEDURE. NO PREMATURE VENTRICULAR COMPLEXES. PATIENT REPORTED NO CHEST PAIN OR TIGHTNESS THROUGHOUT PROCEDURE OR IN RECOVERY. NON DIAGNOSTIC EKG WITH LEXISCAN STRESS.
== END 2018-04-10 17:46 | disposition home or self-care (01) ==
LOC: 2ND 11:43
PROVIDERS: ADMIT Internal Medicine; ATTEND Internal Medicine
DX: I51.9 Heart disease, unspecified (principal); E11.9 Type 2 diabetes mellitus without complications; I10 Essential (primary) hypertension; E03.9 Hypothyroidism, unspecified; E78.5 Hyperlipidemia, unspecified; I48.2 Chronic atrial fibrillation; Z88.2 Allergy status to sulfonamides; E66.9 Obesity, unspecified; Z68.38 Body mass index [BMI] 38.0-38.9, adult
CPT/HCPCS: 36415; 71046; 71275; 78452; 80053; 83880; 84484; 85025; 85379; 93005; 93017; 93306; A9500; G0378; G0379; J1650; J1940; J2785; Q9967

== ENCOUNTER 2018-05-27 10:27 | Emergency (ER) | payer OTHER ==
--- OUTSIDE RECORDS SUMMARY | 2018-05-27 10:30 | XMS REPORT | Clinical Summary ---
:1935 Author Organization [facility] Address [address] [place] [address] Care Team Providers Name Role Phone Asked, [...] Anesthesia Event Procedural Raymon Perkins Cardiology Rocael, LAUNDRY HOUSEKEEPING AIDE 12/21/2017 Surgery Procedural Maureen Douglas MD Cv left atrial Cardiology appendage closure- LARIAT [22380 (CPT)] 12/20/2017 - Hospital Encounter Cardiology RicardoAyaan renteria Atrial fibrillation, 12/25/2017 MD Larry persistent (HCC) (Primary Dx) 11/20/2017 Transcribe Orders Procedural RicardoAyaan ross Persistent atrial Cardiology MD Larry fibrillation (Primary Dx) 11/07/2017 Hospital Encounter Procedural RicardoDevorael Atrial fibrillation, Cardiology MD Larry unspecified type 11/07/2017 Hospital Encounter Procedural RicardoAyaan Chronic atrial Cardiology MD Larry fibrillation 11/06/2017 Transcribe Orders Procedural RicardoAyaan Atrial fibrillation Cardiology MD Larry unspecified type (Primary Dx) 10/26/2017 Transcribe Orders Procedural RicardoAyaan Chronic atrial Cardiology MD Larry fibrillation (Primary Dx) after 05/26/2017 Immunizations Name Dates Previously Given Next Due [...] Due Date Last Done Comments SHINGLES VACCINES (#1) 1985 65+ PNEUMOCOCCAL VACCINE (1 of 2 - PCV13) 2000 PNEUMOCOCCAL POLYSACCHARIDE VACCINE AGE 65 AND OVER 2000 INFLUENZA VACCINE 09/27/2017 Implants Implanted Type Area Jail Officer Device Shelf Model / Identifier Expiration Serial / Date Lot Balloon Oclsn Endocath 0.35in 90cm [id number] - [id number] Cardiovascular N/A: [employer] 20 06 / [...] COLOR PM CDT procedure are in DOPPLER (48636) the results section. POC GLUCOSE Routine 12/23/2017 [...] CDT procedure are in the results section. NE AN ELECTIVE Routine 12/21/2017 8:49 ENDOTRACHEAL AIRWAY AM CDT Procedure Note - Rocco Becerra CRNA - 12/21/2017 8:49 AM CDT Airway Date/Time: 12/21/2017 8:33 AM Performed by: ROCCO BECERRA Authorized by: CARLOS ALBERTO MALONEY Location: OR Urgency: Elective Difficult Airway: No Anesthesiologist: CARLOS ALBERTO MALONEY Resident/LAUNDRY HOUSEKEEPING AIDE/AA: ROCCO BECERRA Performed by: resident/LAUNDRY HOUSEKEEPING AIDE/AA Preoxygenated with 100% O2: Yes C-spine Precautions [...] in DOPPLER COLORFLOW the results section. after 05/26/2017 Results POC glucose (12/25/2017 11:41 AM CDT)Only the most recent of17 resultswithin the time period is included. POC glucose 171 (H) 65 - 99 mg/dL [facility] DEPARTMENT OF PATHOLOGY Comment: AND GENOMIC MEDICINE [facility] Notified RN Meter ID: [id number] Cytotechnologist/Cytology Supervisor: Phil Velazquez Performing Organization Address City/State/Zipcode Phone Number [facility] DEPARTMENT OF PATHOLOGY AND [address] [place] [address] GENOMIC MEDICINE Echocardiogram 2d limited (12/25/2017 9:15 AM CDT) Narrative Performed At [facility] Echocardiography Report [address] [address], [place] [address] Pat.Name:DIANNE JUÁREZ.ID:[id number] .Date: 12/25/2017Refer.MD:AYAAN PARK MD Exam Time: 8:48:00 AMStudy Type:Routine Echo Height:62inWeight: 220lb BSA: 1.99 m2 DOBAge:1935,82Y Sex: FEMALEBP:105/73 HR:74 bpmSonogrphr: Radha Bernstein, RDCS, RVT Pat. Stat.:Inpatient Room:[address] Study Status:Final Echo Event ID:[id number] Order ID:[id number] Reason for Study:Effusion History / Clinical:Diabetes, Hyperlipidemia, [...] RAPof 10 mmHg. MEASUREMENTS: 2D Parasternal Long [place] Ao An2 cmLVPWd1.7 cm LVOT 2 cmLA Ds5.4 cm LVIDd4.2 cmIndex2.1 cm/m Ao Rtd 3.9 cm Index1.9 cm/m LVIDs2.3 cmLV Ufqb302.3 g(87-129) LV%fs 45 % LVM Akclc214.8 g/m2 IVSd 1.5 cmRWT0.8 DOPPLER LVOT Stroke Vol LVOT 2 cmLVOT CO4 l/min LVOT TVI18.7 cmLVOT CI2 l/m/m2 LVOT Tm286 cwiiYG93 bpm LVOT SV 58.6 ml Signed 12/25/2017 02:35 PM Meeta Jaeger M.D. Procedure Note Interface, Radiology Results In - 12/25/2017 2:35 PM CDT Echocardiography Report [address] [place] [address] Pat.Name: DIANNE JUÁREZ [facility].ID: [id number] .Date: 12/25/2017 Refer.MD: AYAAN PARK MD Exam Time: 8:48:00 AM Study Type:Routine Echo Height: 62in Weight: 220lb BSA: 1.99 m2 Age: 2 1935,82Y Sex: FEMALE BP: 105/73 HR: 74 bpm Sonogrphr: Radha Bernstein RDCS, RVT Pat. Stat.:Inpatient Room: [address] Study Status:Final Echo Event ID:[id number] Order ID: [id number] Reason for Study:Effusion History / Clinical:Diabetes, Hyperlipidemia, [...] of 10 mmHg. MEASUREMENTS: 2D Parasternal Long [place] Ao An 2 cm LVPWd 1.7 cm [...] Performing Organization Address City/State/Zipcode Phone Number [facility] [address] [place] [address] Estimated GFR (12/25/2017 5:41 AM CDT)Only the most recent of5 resultswithin the time period is included. Estimated GFR 64 mL/min/1.73 m2 [facility] DEPARTMENT OF Comment: PATHOLOGY AND GENOMIC CatergoryUnitsInterpretation MEDICINE G1 >=90 Normal or high G2 60-89Mildly decreased K6y20-23Jdpaqy to moderately decreased N0v67-35Jrwhcrnvgc to severely decreased G4 15-29Severely decreased G5 <15Kidney failure The eGFR was calculated using the Chronic Kidney Disease Epidemiology Collaboration (CKD-EPI) equation. Interpretation is based on recommendations of the National Kidney Foundation-Kidney Disease Outcomes Quality Initiative (NKF-KDOQI) published in 2014. Specimen Plasma specimen Performing Organization Address City/[facility] Centercode Phone Number [facility] DEPARTMENT OF PATHOLOGY AND [address] [place] [address] [employer] [facility] Magnesium level (12/25/2017 5:41 AM CDT)Only the most recent of5 resultswithin the time period is included. Magnesium 2.0 1.6 - 2.4 mg/dL [facility] DEPARTMENT OF PATHOLOGY AND GENOMIC MEDICINE Specimen Plasma specimen Performing Organization Address [facility] Phone Number [facility] DEPARTMENT OF PATHOLOGY AND [address] [place] [address] [employer] MEDICINE Basic metabolic panel (12/25/2017 5:41 AM CDT)Only the most recent of5 resultswithin the time period is included. Sodium 134 (L) 135 - 148 mEq/L [facility] DEPARTMENT OF PATHOLOGY AND GENOMIC MEDICINE Potassium 4.0 3.5 - 5.0 mEq/L [facility] DEPARTMENT OF PATHOLOGY AND GENOMIC MEDICINE Chloride 96 (L) 98 - 112 mEq/L [facility] DEPARTMENT OF PATHOLOGY AND GENOMIC MEDICINE CO2 25 24 - 31 mEq/L [facility] DEPARTMENT OF PATHOLOGY AND GENOMIC MEDICINE Anion gap 13@ANIO 7 - 15 mEq/L [facility] DEPARTMENT OF PATHOLOGY AND GENOMIC MEDICINE BUN 15 8 - 23 mg/dL [facility] DEPARTMENT OF PATHOLOGY AND GENOMIC MEDICINE Creatinine 0.84 0.50 - 0.90 mg/dL [facility] DEPARTMENT OF PATHOLOGY AND GENOMIC MEDICINE Glucose 112 (H) 65 - 99 mg/dL [facility] DEPARTMENT OF PATHOLOGY AND GENOMIC MEDICINE Calcium 8.6 (L) 8.8 - 10.2 mg/dL [facility] DEPARTMENT OF PATHOLOGY AND GENOMIC MEDICINE Specimen Plasma specimen Performing Organization Address [facility] Centercode Phone Number [facility] DEPARTMENT OF PATHOLOGY AND [address] [place] [address] [employer] MEDICINE XR Chest 1 Vw Portable (12/24/2017 11:55 AM CDT) Narrative Performed At EXAMINATION:XR CHEST 1 VW PORTABLE [facility] CLINICAL HISTORY:Pericardial drain removal COMPARISON:12/06/2013 IMPRESSION: 1.The cardiomediastinal silhouette is moderately enlarged. 2.Vascular congestion is unchanged. There is persistent retrocardiac volume loss. There are no significant effusions. [facility]-[id number] Procedure Note Hm Interface, Radiology Results Incoming - 12/24/2017 12:20 PM CDT EXAMINATION: XR CHEST 1 VW PORTABLE CLINICAL HISTORY: Pericardial drain removal COMPARISON: 12/06/2013 IMPRESSION: 1. The cardiomediastinal silhouette is moderately enlarged. 2. Vascular congestion is unchanged. There is persistent retrocardiac volume loss. There are no significant effusions. [facility]-[id number] Performing Organization Address [facility] Centercoky Phone Number [facility] [address] [place] [address] B natriuretic peptide (12/24/2017 6:23 AM CDT)Only the most recent of4 resultswithin the time period is included. BNP 151 (H) 0 - 100 pg/mL [facility] DEPARTMENT OF PATHOLOGY AND GENOMIC MEDICINE Specimen Blood Performing Organization Address [facility] Phone Number [facility] DEPARTMENT OF PATHOLOGY AND [address] [place] [address] GENOMIC MEDICINE Echocardiogram complete w contrast and 3D if needed (12/23/2017 4:08 PM CDT) Narrative Performed At [facility] Echocardiography Report [address] [place] [address] Pat.Name:DIANNE JUÁREZ Letty.ID:[id number] .Date: 12/23/2017Refer.MD:AYAAN PARK MD Exam Time: 3:24:00 PMStudy Type:Routine Echo Height:62inBSA: 2.01 m2 DOBAge:1935,82Y Sex: FEMALE BP:114/67HR: 86 bpm Sonogrphr: SHAKEEL Easley Pat. Stat.:Inpatient Room:[address] Study Status:Final Echo Event ID:[id number] Order ID:[id number] Reason for Study:Effusion History / Clinical:Diabetes, Hyperlipidemia, [...] meanRAP of5-10 mmHg. MEASUREMENTS: 2D Parasternal Long [place] LVIDd4.3 cmIndex2.1 cm/m LA Ds5.4 cm LVIDs2.8 cmAo Rtd 3.7 cm Index1.8 cm/m LV%fs 35.4 % LV Dkzj885.7 g(87-129) IVSd 1 cmLVM Index 88.9 g/m2 LVPWd1.3 cmRWT0.6 LA Sng Plane LA Area 30.1 cm2(8.8-23.4) LA Vol 119.1 ml Index59.3 ml/m LA LngAx 6.3 cm Signed 12/23/2017 05:14 PM Nick Umana M.D. Procedure Note Interface, Radiology Results In - 12/23/2017 5:16 PM CDT Echocardiography Report [address] [place] [address] Pat.Name: DIANNE JUÁREZ Pat.ID: [id number] .Date: 12/23/2017 Refer.MD: AYAAN PARK MD Exam Time: 3:24:00 PM Study Type:Routine Echo Height: 62in BSA: 2.01 m2 Age: 2 1935,82Y Sex: FEMALE BP: 114/67 HR: 86 bpm Sonogrphr: SHAKEEL Easley Pat. Stat.:Inpatient Room: [address] Study Status:Final Echo Event ID:[id number] Order ID: [id number] Reason for Study:Effusion History / Clinical:Diabetes, Hyperlipidemia, [...] of 5-10 mmHg. MEASUREMENTS: 2D Parasternal Long [place] LVIDd 4.3 cm Index 2.1 cm/m LA [...] PM Nick Umana M.D. Performing Organization Address [facility] CenterGelesis Phone Number [facility] [address] [place] [address] Activated clotting time (12/21/2017 10:44 AM CDT)Only the most recent of3 resultswithin the time period is included. Activated clotting time 113 96 - 152 sec [facility] DEPARTMENT OF PATHOLOGY Comment: AND [employer] Meter ID: [id number] Cytotechnologist/Cytology Supervisor: Gregorio Ennis Performing Organization Address [facility]/[employer] Phone Number [facility] DEPARTMENT OF PATHOLOGY AND [address] [place] [address] [employer] Partial thromboplastin time, activated (12/21/2017 8:00 AM CDT) PTT 25.8 23.0 - 36.0 sec [facility] DEPARTMENT OF PATHOLOGY Comment: AND [employer] PTT therapeutic range for unfractionated heparin is 61.0-112.0 seconds which corresponds to Anti-Xa 0.3-0.7 U/ml. Specimen Blood Performing Organization Address City/[facility]/Zipcode Phone Number [facility] DEPARTMENT OF PATHOLOGY AND [address] [place] [address] [employer] [facility] Prothrombin time with INR (12/21/2017 8:00 AM CDT) Prothrombin time 13.3 12.0 - 15.0 sec [facility] DEPARTMENT OF PATHOLOGY AND GENOMIC MEDICINE INR 1.0 [facility] DEPARTMENT OF Comment: PATHOLOGY AND GENOMIC The International Normalized Ratio (INR) is a therapeutic MEDICINE monitoring tool for patients who are stable on oral anticoagulant therapy. An INR of 2.0-3.0 is suggested for deep vein thrombosis/pulmonary embolism. Specimen Blood Performing Organization Address [facility]/Zipcode Phone Number [facility] DEPARTMENT OF PATHOLOGY AND [address] [place] [phone] [employer] [facility] Prepare RBC (12/21/2017 8:00 AM CDT) Product name Red Blood Cells -1, [facility] DEPARTMENT OF Leukored PATHOLOGY AND GENOMIC MEDICINE Unit number [id number] [facility] DEPARTMENT OF PATHOLOGY AND GENOMIC MEDICINE Product code D8553W29 [facility] DEPARTMENT OF PATHOLOGY AND GENOMIC MEDICINE Dispense status Returned to not [facility] DEPARTMENT OF transfused PATHOLOGY AND GENOMIC MEDICINE Blood expiration date [facility] DEPARTMENT OF PATHOLOGY AND GENOMIC MEDICINE Blood type code 7300 [facility] DEPARTMENT OF PATHOLOGY AND GENOMIC MEDICINE Blood type B POSITIVE [facility] DEPARTMENT OF PATHOLOGY AND GENOMIC MEDICINE Product name Red Blood Cells -1, [facility] DEPARTMENT OF Leukored PATHOLOGY AND GENOMIC MEDICINE Unit number [id number] [facility] DEPARTMENT OF PATHOLOGY AND GENOMIC MEDICINE Product code [id number] [facility] DEPARTMENT OF PATHOLOGY AND GENOMIC MEDICINE Dispense status Returned to BB not [facility] DEPARTMENT OF transfused PATHOLOGY AND GENOMIC MEDICINE Blood expiration date [facility] DEPARTMENT OF PATHOLOGY AND GENOMIC MEDICINE Blood type code 7300 [facility] DEPARTMENT OF PATHOLOGY AND GENOMIC MEDICINE Blood type B POSITIVE [facility] DEPARTMENT OF PATHOLOGY AND GENOMIC MEDICINE Product name Red Blood Cells -1, [facility] DEPARTMENT OF Leukored PATHOLOGY AND GENOMIC MEDICINE Unit number [id number] [facility] DEPARTMENT OF PATHOLOGY AND GENOMIC MEDICINE Product code [id number] [facility] DEPARTMENT OF PATHOLOGY AND GENOMIC MEDICINE Dispense status Returned to BB not [facility] DEPARTMENT OF transfused PATHOLOGY AND GENOMIC MEDICINE Blood expiration date [facility] DEPARTMENT OF PATHOLOGY AND GENOMIC MEDICINE Blood type code 7300 [facility] DEPARTMENT OF PATHOLOGY AND GENOMIC MEDICINE Blood type B POSITIVE [facility] DEPARTMENT OF PATHOLOGY AND GENOMIC MEDICINE Product name Red Blood Cells -1, [facility] DEPARTMENT OF Leukored PATHOLOGY AND GENOMIC MEDICINE Unit number [id number] [facility] DEPARTMENT OF PATHOLOGY AND GENOMIC MEDICINE Product code U6323S58 [facility] DEPARTMENT OF PATHOLOGY AND GENOMIC MEDICINE Dispense status Returned to BB not [facility] DEPARTMENT OF transfused PATHOLOGY AND GENOMIC MEDICINE Blood expiration date [id number] [facility] DEPARTMENT OF PATHOLOGY AND GENOMIC MEDICINE Blood type code 7300 [facility] DEPARTMENT OF PATHOLOGY AND GENOMIC MEDICINE Blood type B POSITIVE [facility] DEPARTMENT OF PATHOLOGY AND GENOMIC MEDICINE Performing Organization Address City/[facility]/Zipcode Phone Number [facility] DEPARTMENT OF PATHOLOGY AND [address] [place] [address] GENOMIC MEDICINE Type and screen (12/21/2017 8:00 AM CDT) ABO grouping B [facility] DEPARTMENT OF PATHOLOGY AND GENOMIC MEDICINE Rh type POS [facility] DEPARTMENT OF PATHOLOGY AND GENOMIC MEDICINE Antibody screen (gel) NEG [facility] DEPARTMENT OF PATHOLOGY AND GENOMIC MEDICINE Performing Organization Address City/[facility] Centercode Phone Number [facility] DEPARTMENT OF PATHOLOGY AND [address] [place], [place] [phone] GENOMIC MEDICINE CBC with platelet and differential (12/20/2017 9:45 PM CDT) WBC 9.28 4.50 - 11.00 k/uL [facility] DEPARTMENT OF PATHOLOGY AND GENOMIC MEDICINE RBC 3.72 (L) 4.20 - 5.50 m/uL [facility] DEPARTMENT OF PATHOLOGY AND GENOMIC MEDICINE HGB 11.5 (L) 12.0 - 16.0 g/dL [facility] DEPARTMENT OF PATHOLOGY AND GENOMIC MEDICINE HCT 36.1 (L) 37.0 - 47.0 % [facility] DEPARTMENT OF PATHOLOGY AND GENOMIC MEDICINE MCV 97.0 82.0 - 100.0 fL [facility] DEPARTMENT OF PATHOLOGY AND GENOMIC MEDICINE MCH 30.9 27.0 - 34.0 pg [facility] DEPARTMENT OF PATHOLOGY AND GENOMIC MEDICINE MCHC 31.9 31.0 - 37.0 g/dL [facility] DEPARTMENT OF PATHOLOGY AND GENOMIC MEDICINE RDW - SD 50.5 37.0 - 55.0 fL [facility] DEPARTMENT OF PATHOLOGY AND GENOMIC MEDICINE MPV 10.5 8.8 - 13.2 fL [facility] DEPARTMENT OF PATHOLOGY AND GENOMIC MEDICINE Platelet count 190 150 - 400 k/uL [facility] DEPARTMENT OF PATHOLOGY AND GENOMIC MEDICINE Nucleated RBC 0.00 /100 WBC [facility] DEPARTMENT OF PATHOLOGY AND GENOMIC MEDICINE Neutrophils 78.3 (H) 39.0 - 69.0 % [facility] DEPARTMENT OF PATHOLOGY AND GENOMIC MEDICINE Lymphocytes 12.8 (L) 25.0 - 45.0 % [facility] DEPARTMENT OF PATHOLOGY AND GENOMIC MEDICINE Monocytes 8.1 0.0 - 10.0 % [facility] DEPARTMENT OF PATHOLOGY AND GENOMIC MEDICINE Eosinophils 0.2 0.0 - 5.0 % [facility] DEPARTMENT OF PATHOLOGY AND GENOMIC MEDICINE Basophils 0.2 0.0 - 1.0 % [facility] DEPARTMENT OF PATHOLOGY AND GENOMIC MEDICINE Immature granulocytes 0.4Comment: 0.0 - 1.0 % [facility] DEPARTMENT OF "Immature PATHOLOGY AND GENOMIC granulocytes" MEDICINE (promyelocytes, myelocytes, metamyelocytes) Specimen Blood Performing Organization Address City/State/Zipcode Phone Number [facility] DEPARTMENT OF PATHOLOGY AND [address] [place] [address] Cv cta pre afib pulmonary vein mapping (11/07/2017 3:34 PM CDT) Narrative Performed At [facility] Nuclear Cardiology and Cardiac CT [address] [place] [address] CTA Chest Non-Coronary with Contrast Report Pat.Name:DIANNE JUÁREZ Pat.ID:[id number] .Date: 11/07/2017 Refer.MD:AYAAN PARK MD Exam Time: 2:58:00 PM Study Type:CTA Chest Non-Coronary W Contrast Height:61inWeight: 214lb BSA: 1.95 m2 DOBAge:1935,82Y Sex: FEMALEBP:132/60 HR:66 bpm Nuclear Tech:ALESHIA Pulido(N)(CT) CPT - 4: CTA Chest non coronary [address]8742 Nuclear Event ID:[id number] Order ID:[id number] Reason for Study:Pre A-Fib Ablation for Pulmonary Vein Mapping Procedures:CTA Chest Non- Coronary Race:C SUMMARY: Technique: IV contrast was administered and sequential 0.[address] cuts were obtained through the chest using [facility] [place] CT scanner. Post-processing and 3D reconstruction were done using the [employer] workstation. Interactive image viewing and volumetric display [...] Cardiovascular CTA Protocol and interpreted by a Disaster Director.Should a more comprehensive assessment of non-cardiovascular findings be desired, please consult a radiologist.These images are available in the [facility] [employer] PACS system. Signed 11/07/2017 06:24 PM Prasad Lutz MD Procedure Note Interface, Radiology Results In - 11/07/2017 6:25 PM CDT Nuclear Cardiology and Cardiac CT [address] [place] [address] CTA Chest Non-Coronary with Contrast Report Pat.Name: DIANNE JUÁREZ Letty.ID: [id number] .Date: 11/07/2017 Refer.MD: AYAAN PARK MD Exam Time: 2:58:00 PM Study Type:CTA Chest Non-Coronary W Contrast Height: 61in Weight: 214lb BSA: 1.95 m2 Age: 2 1935,82Y Sex: FEMALE BP: 132/60 HR: 66 bpm Nuclear Tech:ALESHIA Pulido(N)(CT) CPT - 4: CTA Chest non coronary [address]115 Nuclear Event ID:[id number] Order ID: [id number] Reason for Study:Pre A-Fib Ablation for Pulmonary Vein Mapping Procedures:CTA Chest Non- Coronary Race: C SUMMARY: Technique: IV contrast was administered and sequential 0.[address] cuts were obtained through the chest using the [employer] Somatom Force CT scanner. Post-processing and 3D reconstruction were done using the [employer] workstation. Interactive image viewing and volumetric display [...] Cardiovascular CTA Protocol and interpreted by a Disaster Director. Should a more comprehensive assessment of non-cardiovascular findings be desired, please consult a radiologist. These images are available in the [facility] [employer] PACS system. Signed 11/07/2017 06:24 PM Prasad Lutz MD Performing Organization Address City/State/Zipcode Phone Number [employer] [address] [place] [address] Echocardiogram transesophageal (11/07/2017 3:16 PM CDT) Narrative Performed At [facility] Transesophageal Echo Report [address], [address]Name:DIANNE JUÁREZ [facility].ID:[id number] .Date: 11/07/2017 Refer.MD:AYAAN PARK MD Exam Time: 12:48:00 PM Study Type:RADHA Height:60inWeight: 214lb BSA: 1.92 m2 DOBAge:1935,82Y Sex: FEMALEBP:145/83 HR:64 bpmSonogrphr: Jevon Thakur MD Pat. Stat.:OutpatientStudy Status:Final Echo Event ID:[id number] Order ID:[id number] Reason for Study:Atrial fibrillation History / Clinical:Diabetes, Hyperlipidemia, Hypertension, Arrhythmias, Atrial Fibrillation Procedures:Transesophageal Echo with Colorflow Doppler Race:C SUMMARY: No thrombus or mass is visualized in the LA or LA appendage. FINDINGS: RADHA:The attending stem crusher performed the RADHA procedure and waspresent for [...] SedationASA Class: 3 Physician: Akash Akins MD Base Draw Operator: Jevon Thakur MD Pre TEEBP HR Post RADHA BP HR 145/83 42172/72 62 Meds:Viscous xylocaine, Cetacaine spray to oropharynx, Versed 2 mg IV, Fentanyl 50 mcg IV Complications: None Condition: Stable MEASUREMENTS: 2D Parasternal Long [place] LVOT 1.8 cmAo Rtd 3.9 cm Ao An1.9 cm Signed 11/07/2017 05:15 PM Akash Akins MD Procedure Note Interface, Radiology Results In - 11/07/2017 5:15 PM CDT Transesophageal Echo Report [address], [place], [place] [address] Letty.Name: DIANNE JUÁREZ.ID: [id number] .Date: 11/07/2017 Refer.MD: AYAAN PARK MD Exam Time: 12:48:00 PM Study Type:RADHA Height: 60in Weight: 214lb BSA: 1.92 m2 Age: 2 1935,82Y Sex: FEMALE BP: 145/83 HR: 64 bpm Sonogrphr: Jevon Thakur MD Pat. Stat.:Outpatient Study Status:Final Echo Event ID:[id number] Order ID: [id number] Reason for Study:Atrial fibrillation History / Clinical:Diabetes, Hyperlipidemia, Hypertension, Arrhythmias, Atrial Fibrillation Procedures:Transesophageal Echo with Colorflow Doppler Race: C SUMMARY: No thrombus or mass is visualized in the LA or LA appendage. FINDINGS: RADHA: The attending stem crusher performed the RADHA procedure and was present [...] ASA Class: 3 Physician: Akash Akins MD Base Draw Operator: Jevon Thakur MD Pre RADHA BP HR Post RADHA BP HR 145/83 64 144/72 62 Meds: Viscous xylocaine, Cetacaine spray to oropharynx, Versed 2 mg IV, Fentanyl 50 mcg IV Complications: None Condition: Stable MEASUREMENTS: 2D Parasternal Long [place] LVOT 1.8 cm Ao Rtd 3.9 cm Ao An 1.9 cm Signed 11/07/2017 05:15 PM Akash Akins MD Performing Organization Address City/State/Zipcode Phone Number [facility] [address] [place] [address] after 05/26/2017 Insurance Payer Benefit Plan / Group Subscriber ID Type Phone Address MEDICARE MEDICARE PART A AND B xxxxxxxxxxx Medicare [place], [place] Advance Directives Patient has advance care planning documents on file. For more information, please contact:[facility] [place] [address]
--- OUTSIDE RECORDS SUMMARY | 2018-05-27 10:31 | XMS REPORT | Continuity of Care Document ---
:1935 Author Organization Interface Problems Problem Status Onset Classification Date Comments Source Date Reported AFIB Active 01/06/[address] Diabetes Active 03/24/19 Finding 03/24/[address],[facility] [place] Anemia Active [...] [place] Hypertension Active 03/24/19 Finding 03/24/[address],[facility] [place] Cellulitis, leg Resolved 01/26/20 Finding 03/24/[address] [facility] [facility] [place] Dehydration Active 11/27/19 Finding 03/24/[address] [facility] [place] UTI Active 05/15/19 Finding 03/24/[address] [facility] [place] Vomiting Resolved 05/15/19 Finding 03/24/[address] [facility] [place] DX:ABDOMINAL Active 06/26/19 [facility] STRESS DYSPNEA [address] [place] [address] Atrial Resolved Problem 06/29/2014 [facility] fibrillation [facility] High cholesterol Resolved Problem 06/29/2014 [facility] Thyroid<sup>1</starr Resolved Problem 06/29/2014 1[facility] Urolithiasis Active Finding 03/24/[address] [facility] Urosepsis Active Finding 03/24/[address] [facility] [place] OTHER FORMS OF Active [facility] Medications Medication Details Route Status Patient Ordering Order Source Instructions Provider Date Lisinopril DAILY Active Katte [facility] [place] Furosemide DAILY Active [facility] [place] Darifenacin AT BEDTIME Active [facility]16 [facility] [place] rivaroxaban 20 20 mg=1 Active [facility] MG Oral Tablet tab, PO, 015 Medical [Xarelto] QPM, 0 Center Refill(s) glimepiride 1 mg 1 mg=1 Active [place] oral tablet tab, PO, 015 Medical BID, # 30 Center tab, 0 Refill(s) lisinopril 2.5 2.5 mg=1 Active [facility] mg oral tablet tab, PO, 015 Medical Daily, # Center 30 tab, 0 Refill(s) levothyroxine 150 Active [facility] 150 mcg (0.15 microgram= 015 Medical mg) oral tablet 1 tab, PO, Center Daily, # 30 tab, 0 Refill(s) simvastatin 10 10 mg=1 Active [facility] mg oral tablet tab, PO, 015 Medical Bedtime, # Center 30 tab, 0 Refill(s) solifenacin 10 mg=1 Active [facility] succinate 10 MG tab, PO, 015 Medical Oral Tablet Daily, # Center [VESICARE] 30 tab, 0 Refill(s) metoprolol 25 mg=1 Active [facility] tartrate 25 mg tab, PO, 015 Medical oral tablet BID, # 180 Center tab, 0 Refill(s) Aspirin 81 MG 81 mg=1 Active [facility] Enteric Coated tab, PO, 015 Medical Tablet Daily, # 0 Center tab, 0 Refill(s) Metoprolol TWICE Active [facility] Tartrate DAILY 014 [facility] [place] Rivaroxaban DAILY Active [facility] [place] Clindamycin Hcl THREE Active [facility] TIMES A 012 [facility] [place] Glimepiride TWICE Active [facility] St[facility] DAILY 012 [facility] [place] Levothyroxine DAILY Active [facility] St[facility] Sodium 012 [facility] [place] Lisinopril DAILY [facility] [place] Simvastatin AT BEDTIME Active [facility] 012 [facility] [place] Sulfamethoxazole TWICE Active [facility]Trimethoprim DAILY [facility]12 [facility] [place] Allergies, Adverse Reactions, Alerts Substance Category Reaction Severity Reaction Status Date Comments Source type Reported Sulfa Rash Allergy to Active [facility] St. (Sulfonamid Substance 7 [facility] [place] Antibiotics ) tape Rash Mild Allergy to Active [facility] St[facility] Substance 7 [facility] [place] Adhesives Unknown Allergy to Active [facility] St[facility] Substance 7 [facility] [place] Adhesive Assertion Drug Active [facility] sulfa drugs Assertion Drug Active [facility] Immunizations Immunization Date Given Site Status Last Updated Comments Source Results Order Name Results Value Reference Date Interpretation Comments Source Range Laboratory Hemoglobin 9.7 g/dL 12.0 - 03/24 [facility] Studies 15.0 [facility] [place] Laboratory Hematocrit 30.7 % 36.0 - 03/24 [facility]. Studies 45.0 [facility] [place] Laboratory Iron Level 7.0 ug/dL 28 - 170 03/23 [facility] St[facility] Studies /2017 [facility] [place] Laboratory Bedside 145 mg/dl 65 - 120 03/23 [facility]. Studies Glucose /2017 [facility] [place] Laboratory Hemoglobin 6.6 % 4 - 6.0 03/23 [facility]. Studies A1c /2017 [facility] [place] Laboratory White Blood 6.5 K/uL 4.3 - 10.9 03/23 [facility] St[facility] Studies Count /2017 [facility] [place] Laboratory Red Cell 18.0 % 12.1 - 03/23 [facility] St[facility] Studies Distribution 15.2 [facility] Width [place] Laboratory Red Blood 3.47 M/uL 3.86 - 03/23 [facility]. Studies Count 4.86 [facility] [place] Laboratory Platelet 275 K/uL 152 - 406 03/23 [facility]. Studies Count /2017 [facility] [place] Laboratory Neutrophils 67.6 % 41.7 - 03/23 [facility] St[facility] Studies % 73.7 /2017 [facility] [place] Laboratory Monocytes % 12.8 % 3.3 - 12.3 03/23 [facility] St[facility] Studies /2017 [facility] [place] [...] Absolute 4.4 K/uL 1.8 - 8.0 03/23 [facility] St[facility] Studies Neutrophil [facility] [place] Laboratory Absolute 0.8 K/uL 0.1 - 1.3 03/23 [facility] St[facility] Studies Monocytes [facility] (CBC) [place] Laboratory Absolute 1.2 K/uL 0.7 - 4.9 03/23 [facility] St[facility] Studies Lymphocytes [facility] (CBC) [place] Laboratory Absolute 0.1 K/uL 0 - 0.5 03/23 [facility] St[facility] Studies Eosinophils [facility] (CBC) [place] Laboratory Absolute 0.0 K/uL 0 - 0.5 03/23 [facility] St[facility] Studies Basophils [facility] (CBC) [place] Laboratory Sodium Level 141 mEq/L 135 - 145 03/23 St[facility] Studies [facility] [place] Laboratory Serum Total 5.5 g/dL 6.0 - 8.3 03/23 [facility] St[facility] Studies Protein [facility] [place] Laboratory Prealbumin 14.7 mg/dl 18 - 38 03/23 [facility] Studies [facility] [place] Laboratory Potassium 4.4 mEq/L 3.6 - 5.0 03/23 [facility] St[facility] Studies Level /2017 [facility] [place] Laboratory Glucose 106 mg/dL 65 - 120 03/23 [facility] St[facility] Studies Level /2017 [facility] [place] Laboratory Estimat 72 mL/min 90 03/23 [facility] Studies Glomerular /2017 [facility] Filtration [place] Rate Laboratory Creatinine 0.77 mg/dL 0.44 - 03/23 [facility] St[facility] Studies 1.00 [facility] [place] Laboratory Chloride 106 mEq/L 101 - 111 03/23 [facility] [address] Studies Level /2017 [facility] [place] Laboratory Carbon 29 mEq/L 21 - 31 03/23 [facility] Studies Dioxide /2017 [facility] Level [place] Laboratory Calcium 9.0 mg/dL 8.5 - 10.5 03/23 [facility] St[facility] Studies Level /2017 [facility] [place] Laboratory Blood Urea 18 mg/dL 6 - 20 03/23 [facility]. Studies Nitrogen /2017 [facility] [place] Laboratory Albumin 3.5 g/dL 3.2 - 5.5 03/23 [facility]. Studies /2017 [facility] [place] Laboratory Segmented 86 % 40 - 80 01/30 [facility]. Studies Neutrophils [facility] [place] Laboratory Rouleau Rouleau 01/30 [facility]. Studies [facility] [place] Laboratory Polychromasi Polychroma 01/30 [facility]. Studies a iglesia [facility] [place] Laboratory Ovalocytes Ovalocytes 01/30 [facility]. Studies [facility] [place] Laboratory Monocytes 3 % 0 - 10 01/30 [facility]. [facility] [place] Laboratory Lymphocytes 11 % 15 - 42 01/30 [facility]. [facility] [place] Laboratory Hypersegment Hypersegme 01/30 [facility]. Studies ed nted [facility] - Neutrophils Neutrophil [place] s Laboratory Blood Blood 01/30 [facility]. Studies Morphology Morphology [facility] - Comment Comment [place] Laboratory Anisocytosis Anisocytos 01/30 [facility]. Studies is [facility] [place] BLOOD BANK Antibody Negative 06/26 [facility] RESULTS Scrn Medical (06/26/14 5:48 AM) Center BLOOD BANK ABO/Rh B POS 06/26 [place] RESULTS /2014 Medical Center CHEM PANEL Magnesium 2.0 mg/dL 1.8 - 2.4 06/26 [facility] ELECTROLYT AGAP 13.8 meq/L 10.0 - 06/26 [facility] 20.0 [facility] ELECTROLYT eGFR 70 06/26 1Result Comment: The eGFR is calculated using the CKD-EPI formula. In most young, healthy individuals the eGFR will be >90 mL/ min/1.73m2. The eGFR declines with age. An eGFR of 60-89 may be normal in [facility] mL/min/1. some populations, particularly the elderly, for whom the CKD-EPI formula has not been extensively validated. Use of the eGFR is not recommended in the following populations: [address] Individuals with unstable creatinine concentrations, including [...] Lvl 8.8 mg/dL 8.5 - 10.5 06/26 [facility] ELECTROLYT Chloride Lvl 105 meq/L 95 - 109 06/26 [facility] ELECTROLYT CO2 26 meq/L 24 - 32 06/26 [facility] ELECTROLYT Potassium 3.8 meq/L 3.5 - 5.1 06/26 [facility] ELECTROLYT Sodium Lvl 141 meq/L 135 - 145 06/26 [facility] ELECTROLYT Creatinine 0.8 mg/dL 0.5 - 1.4 06/26 [facility] ELECTROLYT BUN 16 mg/dL 7 - 22 06/26 [facility] ELECTROLYT Glucose Lvl 143 mg/dL 70 - 99 06/26 2Interpretive Data: Adult reference range values reflect the clinical guidelines [facility] of the [employer]. [facility] HEMATOLOGY Eosinophils 1.7 % 0.0 - 4.0 06/26 [facility] HEMATOLOGY Basophils 0.5 % 0.0 - 1.0 06/26 [facility] HEMATOLOGY Lymphocytes 20.0 % 20.0 - 06/26 [facility] 40.0 Medical Center HEMATOLOGY Monocytes 11.3 % 2.0 - 12.0 06/26 [facility] HEMATOLOGY Segs 66.5 % 45.0 - 06/26 75.0 [facility] HEMATOLOGY Eosinophils 0.1 K/CMM 0.0 - 0.5 06/26 # /2014 [facility] HEMATOLOGY Segs-Bands # 4.7 K/CMM 1.5 - 8.1 06/26 [facility] HEMATOLOGY Lymphocytes 1.4 K/CMM 1.0 - 5.5 06/26 # [facility] HEMATOLOGY Monocytes # 0.8 K/CMM 0.0 - 0.8 06/26 [facility] HEMATOLOGY INR 1.08 0.85 - 06/26 4Interpretive Data: RECOMMENDED RANGES FOR PROTIME INR: [facility] 1. 2.0-3.0 for most medical and surgical thromboembolic states. Medical 2.5-3.5 for artificial heart valves and recurrent embolism. Center INR SHOULD BE USED ONLY FOR PATIENTS ON STABLE ANTICOAGULANT THERAPY. HEMATOLOGY PT 14.1 s 12.0 - 06/26 14.7 [facility] HEMATOLOGY PTT 30.5 s 22.9 - 06/26 5Interpretive 35.8 Data: Heparin [facility] Range: 57 - 92 Seconds HEMATOLOGY MPV 9.1 fL 7.4 - 10.4 06/26 [facility] HEMATOLOGY MCH 29.5 pg 27.0 - 06/26 31.0 [facility] HEMATOLOGY MCV 89.3 fL 80.0 - 06/26 98.0 [facility] HEMATOLOGY Platelet 195 K/CMM 133 - 450 06/26 [facility] HEMATOLOGY RDW 15.5 % 11.5 - 06/26 14.5 [facility] HEMATOLOGY MCHC 33.0 g/dL 32.0 - 06/26 36.0 [facility] HEMATOLOGY WBC 7.1 K/CMM 3.7 - 10.4 06/26 /2014 [facility] HEMATOLOGY Hgb 12.7 g/dL 12.0 - 06/26 16.0 [facility] HEMATOLOGY RBC 4.30 M/CMM 4.20 - 06/26 [place] 5.40 [facility] HEMATOLOGY Hct 38.4 % 36.0 - 06/26 [facility] 48.0 /2014 [facility] LIPIDS CHD Risk 6.12 3.90 - 06/26 [facility] 5.80 [facility] LIPIDS VLDL 77 06/26 [facility] LIPIDS LDL 51 mg/dL <=99 mg/dL 06/26 [facility] (Calculated) [facility] LIPIDS HDL 25 mg/dL >=61 mg/dL 06/26 [facility] LIPIDS Trig 386 mg/dL <=149 06/26 [facility] mg/dL [facility] LIPIDS Chol 153 mg/dL <=199 06/26 3Result [facility] mg/dL Comment: [facility] Center Slightly Hemolyzed. Vital Signs Vital Sign [...] - [place] Systolic (mm Hg) 161 06/26/2014 [facility] Diastolic (mm Hg) 71 06/26/2014 [facility] Systolic (mm Hg) 147 06/26/2014 [facility] Diastolic (mm Hg) 71 06/26/2014 [facility] Respitory Rate 16 06/26/2014 [facility] Systolic (mm Hg) 131 06/26/2014 [facility] Diastolic (mm Hg) 62 06/26/2014 [facility] Respitory Rate 16 06/26/2014 [facility] Respitory Rate 16 06/26/2014 [facility] Weight 109.545 06/26/2014 [facility] Height 157.48 cm 06/26/2014 [facility] BMI Calculated 44.17 06/26/2014 [facility] Temperature Oral (F) 97.7 F 06/26/2014 [facility] Encounters Location Location Encounter Encounter Reason Attending ADM DC Status Source Details Type Number For Provider Date Date Visit [facility] [id number] Ayaan 06/26 06/26 [facility] Outpatient Ricardo /2014 /2014 [facility] [id number] 12/26 [facility] [place] [facility] [id number] 01/30 [facility] [place] [facility] Departed [id number] 02/06 02/06 [facility]2016 [facility] [place] [facility] [place] [facility] St[facility] Registered [id number] 03/23 [facility] Recur[facility]2017 [facility] [place] [facility] St[facility] Discharged [id number] 03/23 03/[address] [facility]2017 [facility] [place] Procedures Procedure Code Date Perfomer Comments Source Anaerobic Blood 03/23/2017 [facility] Birdie - Culture [place] Aerobic Blood 03/23/2017 [facility] Packer - Culture [place] OCCLUSION OF [id number] 02/06/2017 [facility] Packer - LOWER VEIN, OPEN [place] APPROACH TRANSFER RIGHT [id number] 02/06/2017 [facility] [address] Packer - LOWER LEG SKIN, [place] EXTERNAL APPROACH VASCULAR SURGERY [id number] 02/06/2017 [facility] - PROCEDURE [place] Back [id number] 1back surgery [facility]<sup>1</sup> with shaved Center off spur Carpal tunnel [id number] [facility] Gallbladder [id number] [facility] Kidney stone [id number] [facility] Knee replacement [id number] [facility]
[2018-05-27 11:10] LABS: Urine Blood TRACE (NEG); Urine Glucose TRACE (NEG); Urine Protein TRACE (NEG); Urine Specific Gravity 1.015 (1.005-1.030); Urine pH 5.5 (5.0-7.0)
[2018-05-27] MEDS ORDERED: NA CHLORIDE 0.9% 500 ML ONE ×3 (11:17→13:24)
[2018-05-27 11:18] LABS: Urine Bacteria >50 /HPF (<20); Urine Culture Reflex Order NOT NEEDED; Urine RBC <5 /HPF (NONE SEEN)
[2018-05-27 11:50] LABS: Absolute Lymphocytes (CBC) 2.1 K/uL (0.7-4.9); Absolute Monocytes 1.2 K/uL (0.1-1.3); Absolute Neutrophil 12.1 K/uL (1.8-8.0); Basophils % 0.2 % (0-1.3); Eosinophils % 0.2 % (0-4.4); Hematocrit 40.4 % (36.0-45.0); Lymphocytes % 13.6 % (15.3-44.8); MPV 8.4 fL (7.6-11.3); Monocytes % 7.5 % (3.3-12.3)
--- NOTE | 2018-05-27 11:51 | RAD REPORT ---
EXAM DESCRIPTION: RAD - Chest Single View - 05/27/2018 11:12 am CLINICAL HISTORY: Weakness, shortness of breath, right lateral chest pain COMPARISON: March 2018 TECHNIQUE: AP portable chest image was obtained 1109 hours . FINDINGS: No focal lung parenchymal process. Interstitial markings are prominent but stable. Heart a nd vasculature are normal. No measurable pleural effusion and no pneumothorax. No acute bony abnormal ity seen. No acute aortic findings suspected. IMPRESSION: No acute cardiopulmonary process. No significant change comparison.
[2018-05-27] MEDS ORDERED: CEFTRIAXONE/SWI 1gm 1 GM/10 ML SYR ONE (11:54)
[2018-05-27 12:02] LABS: Albumin 3.5 g/dL (3.4-5.0); Bilirubin Direct 0.3 mg/dL (0-0.2); Bilirubin Total 0.9 mg/dL (0.2-1.0); Potassium 4.3 mmol/L (3.5-5.1); Protein, Total 7.1 g/dL (6.4-8.2)
--- NOTE | 2018-05-27 13:05 | ER ---
Nurse's Notes [facility] Name: Dianne Juárez Age: 83 yrs Sex: Female : 1935 Arrival Date: 05/27/2018 Time: 10:30 Bed 7 Private MD: Darren Rudd R Diagnosis: Urinary tract infection, site not specified;Dehydration Presentation: 05/27 10:52 Presenting complaint: Child states: per daughter, my mom started feeling weak since the hj other day, she was sitting and tried to bend when she heard a popped on her R rib area that causes her the pain; she is sleeping more than normal and usually gets recurrent UTI, she says she feels tired than usual; denies F/C; denies cough or difficulty breathing; reports nausea, denies vomiting;. Transition of care: patient was not received from another setting of care. 10:52 Method Of Arrival: Wheelchair hj 10:52 Acuity: DOMINIQUE 3 hj 10:52 Onset of symptoms was May 27, 2018. Risk Assessment: Do you want to hurt yourself or hj someone else? Patient reports no desire to harm self or others. Initial Sepsis Screen: Does the patient meet any 2 criteria? No. Patient's initial sepsis screen is negative. Does the patient have a suspected source of infection? No. Patient's initial sepsis screen is negative. Care prior to arrival: None. Triage Assessment: 10:52 General: Appears in no apparent distress. uncomfortable, obese, Behavior is calm, hj cooperative, appropriate for age. Pain: Complains of pain in R rib pain. Historical: - Allergies: 10:52 Adhesives; hj 10:52 Sulfa (Sulfonamide Antibiotics); hj - PMHx: 10:52 Atrial Fib; Diabetes - NIDDM; Hyperlipidemia; Hypertension; Hypothyroidism; irregular hj heart beat; - PSHx: 10:52 Knee surgery; Cholecystectomy; BACK SURGERY; Lithotripsy; Carpal Tunnel Repair; hj - Immunization history:: Adult Immunizations up to date. - Social history:: Smoking status: Patient/guardian denies using tobacco, Patient/guardian denies using alcohol. - Family history:: not pertinent. - Ebola Screening: : Patient negative for fever greater than or equal to 101.5 degrees Fahrenheit, and additional compatible Ebola Virus Disease symptoms Patient denies exposure to infectious person Patient denies travel to an Ebola-affected area in the 21 days before illness onset. - Hospitalizations: : No recent hospitalization is reported. Screenin:52 Abuse screen: Denies threats or abuse. Denies injuries from another. Nutritional hj screening: No deficits noted. Tuberculosis screening: No symptoms or risk factors identified. Fall Risk Fall in past 12 months (25 points). Assessment: 10:55 General: Appears in no apparent distress. uncomfortable, Behavior is calm, cooperative, hj appropriate for age. Pain: Complains of pain in R rib area. Neuro: Level of Consciousness is awake, alert, obeys commands, Oriented to person, place, time, situation, Appropriate for age. Cardiovascular: Capillary refill < 3 seconds Patient's skin is warm and dry. Respiratory: Airway is patent Respiratory effort is even, unlabored, Respiratory pattern is regular, symmetrical. GI: No signs and/or symptoms were reported involving the gastrointestinal system. : No signs and/or symptoms were reported regarding the genitourinary system. EENT: No signs and/or symptoms were reported regarding the EENT system. Derm: No signs and/or symptoms reported regarding the dermatologic system. Musculoskeletal: No signs and/or symptoms reported regarding the musculoskeletal system. 12:00 Reassessment: Patient and/or family updated on plan of care and expected duration. Pain hj level reassessed. Patient is alert, oriented x 3, equal unlabored respirations, skin warm/dry/pink. Patient states feeling better. Patient states symptoms have improved. 13:00 Reassessment: Patient and/or family updated on plan of care and expected duration. Pain hj level reassessed. Patient is alert, oriented x 3, equal unlabored respirations, skin warm/dry/pink. for D/C;. 13:30 Reassessment: family wanted to still give the 500 mls IV;. hj 14:17 Reassessment: awaiting for fluids to be done;. hj Vital Signs: 10:55 BP 100 / 62; Pulse 75; Resp 18; Temp 97.7(O); Pulse Ox 96% on R/A; Weight 91.63 kg; hj Height 5 ft. 1 in. (154.94 cm); Pain 4/10; 11:45 BP 107 / 54; Pulse 67; Resp 18; Pulse Ox 100% on R/A; hj 12:53 BP 105 / 60; Pulse 68; Resp 18; Pulse Ox 100% on R/A; hj 13:30 BP 99 / 70; Pulse 70; Resp 18; Pulse Ox 97% on R/A; hj 14:19 BP 110 / 52; Pulse 70; Resp 18; Pulse Ox 96% on R/A; hj 10:55 Body Mass Index 38.17 (91.63 kg, 154.94 cm) hj ED Course: 10:30 Patient arrived in ED. mr 10:31 Darren Rudd MD is Private Physician. mr 10:41 Matt Fowler, TIGRE is Primary Nurse. hj 10:42 Panfilo Bacon MD is Attending Physician. rn 10:52 Arm band placed on right wrist. hj 10:52 Patient has correct armband on for positive identification. Placed in gown. Bed in low hj position. Call light in reach. Side rails up X 1. Adult w/ patient. 11:03 Triage completed. hj 11:12 XRAY Chest (1 view) In Process Unspecified. EDMS 11:20 Initial lab(s) drawn, by me, sent to lab. First set of blood cultures drawn by me. hj 11:32 Inserted saline lock: 22 gauge in right antecubital area, using aseptic technique. hj Blood collected. 13:04 Darren Rudd MD is Referral Physician. rn Administered Medications: 11:20 Drug: NS 0.9% 500 ml Route: IV; Rate: bolus; Site: right antecubital; hj 12:55 Follow up: IV Status: Completed infusion; IV Intake: 500ml 11:46 Drug: Rocephin - (cefTRIAXone) 1 grams Route: IVPB; Infused Over: 30 mins; Site: right hj antecubital; 12:00 Follow up: IV Status: Completed infusion; IV Intake: 10ml 12:13 Drug: NS 0.9% 500 ml Route: IV; Rate: bolus; Site: right antecubital; hj 13:30 Follow up: IV Status: Completed infusion; IV Intake: 500ml 13:02 Drug: NS 0.9% 500 ml Route: IV; Rate: bolus; Site: right antecubital; 14:22 Follow up: IV Status: Completed infusion; Infusion continued; IV Intake: 500ml Intake: 12:00 IV: 10ml; Total: 10ml. dominga 12:55 IV: 500ml; Total: 510ml. hj 13:30 IV: 500ml; Total: 1010ml. hj 14:22 IV: 500ml; Total: 1510ml. dominga Outcome: 13:04 Discharge ordered by . rn 15:19 Patient left the ED. dominga Addendum: 05/29/2018 10:43 Addendum: Culture Results: Positive urine culture. Bacteria is resistant to, has s s intermediate sensitivity, or is not tested against prescribed antibiotics. Report given to DIOMEDES for further evaluation and then to senior project accountant for follow up with patient. Phone call Attempt #1 Spoke with patient's daughter over the phone who reports that patient is feeling much better and they plan to follow up with PCP soon. Signatures: Dispatcher [employer] Ana Luisa Jones Roman, MD MD rn Smirch, Shelby, RN RN ss Joaquin, Henry, RN RN hj
--- NOTE | 2018-05-27 13:05 | EDPHYS ---
Physician Documentation [facility] Name: Dianne Juárez Age: 83 yrs Sex: Female : 1935 Arrival Date: 05/27/2018 Time: 10:30 Bed 7 Private MD: Darren Rudd R ED Physician Panfilo Bacon HPI: 05/27 10:55 This 83 yrs old Female presents to ER via Wheelchair with complaints of Rib rn pain, Weakness. 10:55 Reports generalized weakness for 2 days, no fever, + chills, reports yesterday bent to rn side, did not fall, heard a pop, thinks hurt her ribs. No sob/cough. No abd pain. + nausea. No diarrhea. Family reports several UTI in past. . Onset: The symptoms/episode began/occurred yesterday. Severity of symptoms: At their worst the symptoms were mild in the emergency department the symptoms are unchanged. The patient has experienced similar episodes in the past. The patient has not recently seen a physician. Historical: - Allergies: 10:52 Adhesives; hj 10:52 Sulfa (Sulfonamide Antibiotics); hj - PMHx: 10:52 Atrial Fib; Diabetes - NIDDM; Hyperlipidemia; Hypertension; Hypothyroidism; irregular hj heart beat; - PSHx: 10:52 Knee surgery; Cholecystectomy; BACK SURGERY; Lithotripsy; Carpal Tunnel Repair; hj - Immunization history:: Adult Immunizations up to date. - Social history:: Smoking status: Patient/guardian denies using tobacco, Patient/guardian denies using alcohol. - Family history:: not pertinent. - Ebola Screening: : Patient negative for fever greater than or equal to 101.5 degrees Fahrenheit, and additional compatible Ebola Virus Disease symptoms Patient denies exposure to infectious person Patient denies travel to an Ebola-affected area in the 21 days before illness onset. - Hospitalizations: : No recent hospitalization is reported. ROS: 10:55 Constitutional: + chills Eyes: Negative for injury, pain, redness, and discharge, ENT: rn Negative for injury, pain, and discharge, Cardiovascular: Negative for chest pain, palpitations, and edema, Respiratory: Negative for shortness of breath, cough, wheezing, + pleuritic chest pain on right side Abdomen/GI: Negative for abdominal pain, vomiting, diarrhea, and constipation, MS/Extremity: Negative for injury and deformity, Skin: Negative for injury, rash, and discoloration, Neuro: Negative for headache, numbness, tingling, and seizure. Exam: 10:55 Constitutional: This is a well developed, well nourished patient who is awake, alert, rn and in no acute distress. Head/Face: Normocephalic, atraumatic. Eyes: Pupils equal round and reactive to light, extra-ocular motions intact. Lids and lashes normal. Conjunctiva and sclera are non-icteric and not injected. Cornea within normal limits. Periorbital areas with no swelling, redness, or edema. ENT: dry MM Cardiovascular: Irregular rhythm, normal rate, no murmur. Respiratory: Lungs have equal breath sounds bilaterally, clear to auscultation. No increased work of breathing, no retractions or nasal flaring. Abdomen/GI: soft, non-tender MS/ Extremity: Pulses equal, no cyanosis. Neurovascular intact. Full, normal range of motion. Equal circumference. Neuro: Awake and alert, GCS 15, oriented to person, place, time, and situation. Cranial nerves II-XII grossly intact. Motor strength 5/5 in all extremities. Sensory grossly intact. Cerebellar exam normal. Vital Signs: 10:55 BP 100 / 62; Pulse 75; Resp 18; Temp 97.7(O); Pulse Ox 96% on R/A; Weight 91.63 kg; hj Height 5 ft. 1 in. (154.94 cm); Pain 4/10; 11:45 BP 107 / 54; Pulse 67; Resp 18; Pulse Ox 100% on R/A; hj 12:53 BP 105 / 60; Pulse 68; Resp 18; Pulse Ox 100% on R/A; hj 13:30 BP 99 / 70; Pulse 70; Resp 18; Pulse Ox 97% on R/A; hj 14:19 BP 110 / 52; Pulse 70; Resp 18; Pulse Ox 96% on R/A; hj 10:55 Body Mass Index 38.17 (91.63 kg, 154.94 cm) MDM: 10:42 Patient medically screened. rn 13:02 Differential Diagnosis sepsis, flu, UTI, dehydration. Data reviewed: vital signs, rn nurses notes, lab test result(s), EKG, radiologic studies, plain films. 13:02 Counseling: I had a detailed discussion with the patient and/or guardian regarding: the rn historical points, exam findings, and any diagnostic results supporting the discharge/admit diagnosis, lab results, radiology results, the need for outpatient follow up, to return to the emergency department if symptoms worsen or persist or if there are any questions or concerns that arise at home. Response to treatment: the patient's symptoms have mildly improved after treatment, and as a result, I will discharge patient. ED course: Pt improved with IV fluids, + UTI and dehydration, procalcitonin negative, improved vitals, family ok with dc home adn return precautions, will f/u with Dr Rudd for reeval. . 05/27 10:53 Order name: CBC with Diff; Complete Time: 12:12 05/27 10:53 Order name: Basic Metabolic Panel; Complete Time: 12:12 05/27 10:53 Order name: Urine Microscopic Only; Complete Time: 11:27 05/27 10:53 Order name: Urine Culture rn 05/27 10:53 Order name: Flu; Complete Time: 12:18 05/27 10:53 Order name: Procalcitonin; Complete Time: 12:12 05/27 10:53 Order name: XRAY Chest (1 view); Complete Time: 11:52 rn 05/27 10:53 Order name: LFT's; Complete Time: 12:12 05/27 11:08 Order name: Urine Dipstick--Ancillary (enter results); Complete Time: 11:27 05/27 11:34 Order name: Blood Culture Adult (2) rn 05/27 10:53 Order name: IV Start; Complete Time: 11:29 rn 05/27 10:53 Order name: Urine Dipstick-Ancillary (obtain specimen); Complete Time: 11:06 rn 05/27 10:53 Order name: EKG - Nurse/Tech; Complete Time: 11:29 rn Administered Medications: 11:20 Drug: NS 0.9% 500 ml Route: IV; Rate: bolus; Site: right antecubital; hj 12:55 Follow up: IV Status: Completed infusion; IV Intake: 500ml hj 11:46 Drug: Rocephin - (cefTRIAXone) 1 grams Route: IVPB; Infused Over: 30 mins; Site: right hj antecubital; 12:00 Follow up: IV Status: Completed infusion; IV Intake: 10ml 12:13 Drug: NS 0.9% 500 ml Route: IV; Rate: bolus; Site: right antecubital; hj 13:30 Follow up: IV Status: Completed infusion; IV Intake: 500ml 13:02 Drug: NS 0.9% 500 ml Route: IV; Rate: bolus; Site: right antecubital; hj 14:22 Follow up: IV Status: Completed infusion; Infusion continued; IV Intake: 500ml Disposition: 05/27/18 13:04 Discharged to Home. Impression: Urinary tract infection, site not specified, Dehydration. - Condition is Stable. - Discharge Instructions: Dehydration, Adult, Urinary Tract Infection, Adult. - Prescriptions for cefpodoxime 200 mg Oral Tablet - take 1 tablet by ORAL route every 12 hours for 10 days with food; 20 tablet. - Medication Reconciliation Form, Thank You Letter, Antibiotic Education, Prescription Opioid Use form. - Follow up: Darren Rudd MD; When: As needed; Reason: Recheck today's complaints, Re-evaluation by your physician. - Problem is new. - Symptoms have improved. Signatures: Dispatcher [employer] EDMS Panfilo Bacon MD MD rn Joaquin, Henry, RN RN hj Corrections: (The following items were deleted from the chart) 13:02 10:55 Constitutional: This is a well developed, well nourished patient who is awake, rn alert, and in no acute distress. Head/Face: Normocephalic, atraumatic. Eyes: Pupils equal round and reactive to light, extra-ocular motions intact. Lids and lashes normal. Conjunctiva and sclera are non-icteric and not injected. Cornea within normal limits. Periorbital areas with no swelling, redness, or edema. ENT: dry MM Cardiovascular: Regular rate and rhythm. No pulse deficits. Respiratory: Lungs have equal breath sounds bilaterally, clear to auscultation. No increased work of breathing, no retractions or nasal flaring. Abdomen/GI: soft, non-tender MS/ Extremity: Pulses equal, no cyanosis. Neurovascular intact. Full, normal range of motion. Equal circumference. Neuro: Awake and alert, GCS 15, oriented to person, place, time, and situation. Cranial nerves II-XII grossly intact. Motor strength 5/5 in all extremities. Sensory grossly intact. Cerebellar exam normal. rn 15:19 13:04 05/27/2018 13:04 Discharged to Home. Impression: Urinary tract infection, site hj not specified; Dehydration. Condition is Stable. Forms are Medication Reconciliation Form, Thank You Letter, Antibiotic Education, Prescription Opioid Use. Follow up: Darren Rudd; When: As needed; Reason: Recheck today's complaints, Re-evaluation by your physician. Problem is new. Symptoms have improved. rn
[2018-05-27 15:29] VITALS: TEMP 97.7
[2018-05-27 15:34] VITALS: BP 110/52; O2SAT 96
== END 2018-05-27 15:19 | disposition home or self-care (01) ==
LOC: ER 10:27
DX: N39.0 Urinary tract infection, site not specified (principal); E86.0 Dehydration; I48.91 Unspecified atrial fibrillation; E11.9 Type 2 diabetes mellitus without complications; E78.5 Hyperlipidemia, unspecified; E03.9 Hypothyroidism, unspecified
CPT/HCPCS: 96361; 87040 ×2; 87088; 85025; 87086; 80048; 36415; 87205; 80076; 87077; 87186; 84145; 87804 ×2; 71045; 96374; 99284; J0696; 81003; 81015

== ENCOUNTER 2018-05-31 14:48 | Observation (INO) | payer OTHER ==
--- OUTSIDE RECORDS SUMMARY | 2018-05-31 15:29 | XMS REPORT | Clinical Summary ---
:1935 Author Organization [employer] Address [address] [place] [address] Care Team Providers Name Role Phone Asked, [...] Anesthesia Event Procedural Raymon Perkins Cardiology Rocael, ORTHOPEDIC MECHANIC 12/21/2017 Surgery Procedural Maureen Douglas MD Cv left atrial Cardiology appendage closure- LARIAT [36445 (CPT)] 12/20/2017 - Hospital Encounter Cardiology RicardoAyaan [...] Cardiology MD Larry fibrillation (Primary Dx) after 05/30/2017 Immunizations Name Dates Previously Given Next Due [...] AGE 65 AND OVER 2000 INFLUENZA VACCINE 09/27/2018 Implants Implanted Type Area Escalator Service Mechanic Device Shelf Model / Identifier Expiration Serial / Date Lot Balloon Oclsn Endocath 0.35in 90cm [id number] - [id number] Cardiovascular N/A: [employer] 20 06 / [...] COLOR PM CDT procedure are in DOPPLER (43771) the results section. POC GLUCOSE Routine 12/23/2017 [...] CDT procedure are in the results section. RI AN ELECTIVE Routine 12/21/2017 8:49 ENDOTRACHEAL AIRWAY AM CDT Procedure Note - Rocco Becerra CRNA - 12/21/2017 8:49 AM CDT Airway Date/Time: 12/21/2017 8:33 AM Performed by: ROCCO BECERRA Authorized by: CARLOS ALBERTO MALONEY Location: OR Urgency: Elective Difficult Airway: No Anesthesiologist: CARLOS ALBERTO MALONEY Resident/ORTHOPEDIC MECHANIC/AA: ROCCO BECERRA Performed by: resident/ORTHOPEDIC MECHANIC/AA Preoxygenated with 100% O2: Yes C-spine Precautions [...] in DOPPLER COLORFLOW the results section. after 05/30/2017 Results POC glucose (12/25/2017 11:41 AM CDT)Only the most recent of17 resultswithin the time period is included. POC glucose 171 (H) 65 - 99 mg/dL [facility] DEPARTMENT OF PATHOLOGY Comment: AND GENOMIC MEDICINE [facility], [facility] Notified RN Meter ID: [id number] Roughener: Phil Velazquez Performing Organization Address City/State/Zipcode Phone Number [facility] DEPARTMENT OF PATHOLOGY AND [address] [place] [address] GENOMIC MEDICINE Echocardiogram 2d limited (12/25/2017 9:15 AM CDT) Narrative Performed At [facility] Echocardiography Report [address] [address], [place] [address] Pat.Name:DIANNE JUÁREZ.ID:[id number] .Date: 12/25/2017Refer.MD:AYAAN PARK MD Exam Time: 8:48:00 AMStudy Type:Routine Echo Height:62inWeight: 220lb BSA: 1.99 m2 DOBAge:1935,82Y Sex: FEMALEBP:105/73 HR:74 bpmSonogrphr: Radha Bernstein, RDCS, RVT Pat. Stat.:Inpatient Room:[address] Study Status:Final Echo Event ID:[id number] Order ID:[id number] Reason for Study:Effusion History / Clinical:Diabetes, Hyperlipidemia, [...] RAPof 10 mmHg. MEASUREMENTS: 2D Parasternal Long Terrell Ao An2 cmLVPWd1.7 cm LVOT 2 cmLA Ds5.4 cm LVIDd4.2 cmIndex2.1 cm/m Ao Rtd 3.9 cm Index1.9 cm/m LVIDs2.3 cmLV Nlmm341.3 g(87-129) LV%fs 45 % LVM Rvciz673.8 g/m2 IVSd 1.5 cmRWT0.8 DOPPLER LVOT Stroke Vol LVOT 2 cmLVOT CO4 l/min LVOT TVI18.7 cmLVOT CI2 l/m/m2 LVOT Tm286 ifuvMP00 bpm LVOT SV 58.6 ml Signed 12/25/2017 02:35 PM Meeta Jaeger M.D. Procedure Note Interface, Radiology Results In - 12/25/2017 2:35 PM CDT Echocardiography Report [address] [place] [address] Pat.Name: DIANNE JUÁREZ [facility].ID: [id number] .Date: 12/25/2017 Refer.MD: AYAAN PARK MD Exam Time: 8:48:00 AM Study Type:Routine Echo Height: 62in Weight: 220lb BSA: 1.99 m2 Age: 2 1935,82Y Sex: FEMALE BP: 105/73 HR: 74 bpm Sonogrphr: Radha Bernstein RDCS, RVT Pat. Stat.:Inpatient Room: [address] Study Status:Final Echo Event ID:[id number] Order ID: [id number] Reason for Study:Effusion History / Clinical:Diabetes, Hyperlipidemia, [...] of 10 mmHg. MEASUREMENTS: 2D Parasternal Long Terrell Ao An 2 cm LVPWd 1.7 cm [...] Performing Organization Address City/State/Zipcode Phone Number [facility] [address] [place] [address] Estimated GFR (12/25/2017 5:41 AM CDT)Only the most recent of5 resultswithin the time period is included. Estimated GFR 64 mL/min/1.73 m2 [facility] DEPARTMENT OF Comment: PATHOLOGY AND GENOMIC CatergoryUnitsInterpretation MEDICINE G1 >=90 Normal or high G2 60-89Mildly decreased H1k50-36Dkkewf to moderately decreased M9t61-06Arzjkgruyb to severely decreased G4 15-29Severely decreased G5 <15Kidney failure The eGFR was calculated using the Chronic Kidney Disease Epidemiology Collaboration (CKD-EPI) equation. Interpretation is based on recommendations of the National Kidney Foundation-Kidney Disease Outcomes Quality Initiative (NKF-KDOQI) published in 2014. Specimen Plasma specimen Performing Organization Address City/[facility] Centercode Phone Number [facility] DEPARTMENT OF PATHOLOGY AND [address] [place] [address] [employer] [facility] Magnesium level (12/25/2017 5:41 AM CDT)Only the most recent of5 resultswithin the time period is included. Magnesium 2.0 1.6 - 2.4 mg/dL [facility] DEPARTMENT OF PATHOLOGY AND GENOMIC MEDICINE Specimen Plasma specimen Performing Organization Address [facility] Phone Number [facility] DEPARTMENT OF PATHOLOGY AND [address] [place] [phone] [employer] MEDICINE Basic metabolic panel (12/25/2017 5:41 AM CDT)Only the most recent of5 resultswithin the time period is included. Sodium 134 (L) 135 - 148 mEq/L [facility] DEPARTMENT OF PATHOLOGY AND GENOMIC MEDICINE Potassium 4.0 3.5 - 5.0 mEq/L [facility] DEPARTMENT OF PATHOLOGY AND GENOMIC MEDICINE Chloride 96 (L) 98 - 112 mEq/L [facility] DEPARTMENT OF PATHOLOGY AND GENOMIC MEDICINE CO2 25 24 - 31 mEq/L [facility] DEPARTMENT OF PATHOLOGY AND GENOMIC MEDICINE Anion gap 13@ANIO 7 - 15 mEq/L [facility] DEPARTMENT OF PATHOLOGY AND GENOMIC MEDICINE BUN 15 8 - 23 mg/dL [facility] DEPARTMENT OF PATHOLOGY AND GENOMIC MEDICINE Creatinine 0.84 0.50 - 0.90 mg/dL [facility] DEPARTMENT OF PATHOLOGY AND GENOMIC MEDICINE Glucose 112 (H) 65 - 99 mg/dL [facility] DEPARTMENT OF PATHOLOGY AND GENOMIC MEDICINE Calcium 8.6 (L) 8.8 - 10.2 mg/dL [facility] DEPARTMENT OF PATHOLOGY AND GENOMIC MEDICINE Specimen Plasma specimen Performing Organization Address [facility] Centercode Phone Number [facility] DEPARTMENT OF PATHOLOGY AND [address] [place] [address] [employer] MEDICINE XR Chest 1 Vw Portable (12/24/2017 11:55 AM CDT) Narrative Performed At EXAMINATION:XR CHEST 1 VW PORTABLE [facility] CLINICAL HISTORY:Pericardial drain removal COMPARISON:12/06/2013 IMPRESSION: 1.The cardiomediastinal silhouette is moderately enlarged. 2.Vascular congestion is unchanged. There is persistent retrocardiac volume loss. There are no significant effusions. [facility]-[id number] Procedure Note Hm Interface, Radiology Results Incoming - 12/24/2017 12:20 PM CDT EXAMINATION: XR CHEST 1 VW PORTABLE CLINICAL HISTORY: Pericardial drain removal COMPARISON: 12/06/2013 IMPRESSION: 1. The cardiomediastinal silhouette is moderately enlarged. 2. Vascular congestion is unchanged. There is persistent retrocardiac volume loss. There are no significant effusions. [facility]-[id number] Performing Organization Address [facility] Centercook Phone Number [facility] [address] [place] [address] B natriuretic peptide (12/24/2017 6:23 AM CDT)Only the most recent of4 resultswithin the time period is included. BNP 151 (H) 0 - 100 pg/mL [facility] DEPARTMENT OF PATHOLOGY AND GENOMIC MEDICINE Specimen Blood Performing Organization Address [facility] Phone Number [facility] DEPARTMENT OF PATHOLOGY AND [address] [place] [address] GENOMIC MEDICINE Echocardiogram complete w contrast and 3D if needed (12/23/2017 4:08 PM CDT) Narrative Performed At [facility] Echocardiography Report [address] [place] [address] Pat.Name:DIANNE JUÁREZ Letty.ID:[id number] .Date: 12/23/2017Refer.MD:AYAAN PARK MD Exam Time: 3:24:00 PMStudy Type:Routine Echo Height:62inBSA: 2.01 m2 DOBAge:1935,82Y Sex: FEMALE BP:114/67HR: 86 bpm Sonogrphr: SHAKEEL Easley Pat. Stat.:Inpatient Room:[address] Study Status:Final Echo Event ID:[id number] Order ID:[id number] Reason for Study:Effusion History / Clinical:Diabetes, Hyperlipidemia, [...] meanRAP of5-10 mmHg. MEASUREMENTS: 2D Parasternal Long Terrell LVIDd4.3 cmIndex2.1 cm/m LA Ds5.4 cm LVIDs2.8 cmAo Rtd 3.7 cm Index1.8 cm/m LV%fs 35.4 % LV Vslh528.7 g(87-129) IVSd 1 cmLVM Index 88.9 g/m2 LVPWd1.3 cmRWT0.6 LA Sng Plane LA Area 30.1 cm2(8.8-23.4) LA Vol 119.1 ml Index59.3 ml/m LA LngAx 6.3 cm Signed 12/23/2017 05:14 PM Nick Umana M.D. Procedure Note Interface, Radiology Results In - 12/23/2017 5:16 PM CDT Echocardiography Report [address] [place] [address] Pat.Name: DIANNE JUÁREZ Pat.ID: [id number] .Date: 12/23/2017 Refer.MD: AYAAN PARK MD Exam Time: 3:24:00 PM Study Type:Routine Echo Height: 62in BSA: 2.01 m2 Age: 2 1935,82Y Sex: FEMALE BP: 114/67 HR: 86 bpm Sonogrphr: SHAKEEL Easley Pat. Stat.:Inpatient Room: [address] Study Status:Final Echo Event ID:[id number] Order ID: [id number] Reason for Study:Effusion History / Clinical:Diabetes, Hyperlipidemia, [...] of 5-10 mmHg. MEASUREMENTS: 2D Parasternal Long Terrell LVIDd 4.3 cm Index 2.1 cm/m LA [...] PM Nick Umana M.D. Performing Organization Address [facility] CenterReddwerks Corporation Phone Number [facility] CENTERID [address] [place] [address] Activated clotting time (12/21/2017 10:44 AM CDT)Only the most recent of3 resultswithin the time period is included. Activated clotting time 113 96 - 152 sec [facility] DEPARTMENT OF PATHOLOGY Comment: AND [email or web address].me Meter ID: [id number] Roughener: Gregorio Ennis Performing Organization Address [facility]/[employer] Phone Number [facility] DEPARTMENT OF PATHOLOGY AND [address] [place] [address] [email or web address] Partial thromboplastin time, activated (12/21/2017 8:00 AM CDT) PTT 25.8 23.0 - 36.0 sec [facility] DEPARTMENT OF PATHOLOGY Comment: AND [email or web address][employer]me PTT therapeutic range for unfractionated heparin is 61.0-112.0 seconds which corresponds to Anti-Xa 0.3-0.7 U/ml. Specimen Blood Performing Organization Address City/[facility]/Zipcode Phone Number [facility] DEPARTMENT OF PATHOLOGY AND [address] [place] [address] [employer] [facility] Prothrombin time with INR (12/21/2017 8:00 AM CDT) Prothrombin time 13.3 12.0 - 15.0 sec [facility] DEPARTMENT OF PATHOLOGY AND GENOMIC MEDICINE INR 1.0 [facility] DEPARTMENT OF Comment: PATHOLOGY AND GENOMIC The International Normalized Ratio (INR) is a therapeutic MEDICINE monitoring tool for patients who are stable on oral anticoagulant therapy. An INR of 2.0-3.0 is suggested for deep vein thrombosis/pulmonary embolism. Specimen Blood Performing Organization Address [facility]/Zipcode Phone Number [facility] DEPARTMENT OF PATHOLOGY AND [address] [place] [address] [employer] [facility] Prepare RBC (12/21/2017 8:00 AM CDT) Product name Red Blood Cells -1, [facility] DEPARTMENT OF Leukored PATHOLOGY AND GENOMIC MEDICINE Unit number [id number] [facility] DEPARTMENT OF PATHOLOGY AND GENOMIC MEDICINE Product code [id number] [facility] DEPARTMENT OF PATHOLOGY AND GENOMIC MEDICINE Dispense status Returned to not [facility] DEPARTMENT OF transfused PATHOLOGY AND GENOMIC MEDICINE Blood expiration date [facility] DEPARTMENT OF PATHOLOGY AND GENOMIC MEDICINE Blood type code 7300 [facility] DEPARTMENT OF PATHOLOGY AND GENOMIC MEDICINE Blood type B POSITIVE [facility] DEPARTMENT OF PATHOLOGY AND GENOMIC MEDICINE Product name Red Blood Cells -1, [facility] DEPARTMENT OF Leukored PATHOLOGY AND GENOMIC MEDICINE Unit number [id number] [facility] DEPARTMENT OF PATHOLOGY AND GENOMIC MEDICINE Product code [id number] [facility] DEPARTMENT OF PATHOLOGY AND GENOMIC MEDICINE Dispense status Returned to BB not [facility] DEPARTMENT OF transfused PATHOLOGY AND GENOMIC MEDICINE Blood expiration date [facility] DEPARTMENT OF PATHOLOGY AND GENOMIC MEDICINE Blood type code 7300 [facility] DEPARTMENT OF PATHOLOGY AND GENOMIC MEDICINE Blood type B POSITIVE [facility] DEPARTMENT OF PATHOLOGY AND GENOMIC MEDICINE Product name Red Blood Cells -1, [facility] DEPARTMENT OF Leukored PATHOLOGY AND GENOMIC MEDICINE Unit number [id number] [facility] DEPARTMENT OF PATHOLOGY AND GENOMIC MEDICINE Product code [id number] [facility] DEPARTMENT OF PATHOLOGY AND GENOMIC MEDICINE Dispense status Returned to BB not [facility] DEPARTMENT OF transfused PATHOLOGY AND GENOMIC MEDICINE Blood expiration date [facility] DEPARTMENT OF PATHOLOGY AND GENOMIC MEDICINE Blood type code 7300 [facility] DEPARTMENT OF PATHOLOGY AND GENOMIC MEDICINE Blood type B POSITIVE [facility] DEPARTMENT OF PATHOLOGY AND GENOMIC MEDICINE Product name Red Blood Cells -1, [facility] DEPARTMENT OF Leukored PATHOLOGY AND GENOMIC MEDICINE Unit number [id number] [facility] DEPARTMENT OF PATHOLOGY AND GENOMIC MEDICINE Product code [id number] [facility] DEPARTMENT OF PATHOLOGY AND GENOMIC MEDICINE Dispense status Returned to BB not [facility] DEPARTMENT OF transfused PATHOLOGY AND GENOMIC MEDICINE Blood expiration date [id number] [facility] DEPARTMENT OF PATHOLOGY AND GENOMIC MEDICINE Blood type code 7300 [facility] DEPARTMENT OF PATHOLOGY AND GENOMIC MEDICINE Blood type B POSITIVE [facility] DEPARTMENT OF PATHOLOGY AND GENOMIC MEDICINE Performing Organization Address City/[facility]/Zipcode Phone Number [facility] DEPARTMENT OF PATHOLOGY AND [address] [place] [address] GENOMIC MEDICINE Type and screen (12/21/2017 8:00 AM CDT) ABO grouping B [facility] DEPARTMENT OF PATHOLOGY AND GENOMIC MEDICINE Rh type POS [facility] DEPARTMENT OF PATHOLOGY AND GENOMIC MEDICINE Antibody screen (gel) NEG [facility] DEPARTMENT OF PATHOLOGY AND GENOMIC MEDICINE Performing Organization Address City/[facility] Centercode Phone Number [facility] DEPARTMENT OF PATHOLOGY AND [address] [place], [place] [phone] GENOMIC MEDICINE CBC with platelet and differential (12/20/2017 9:45 PM CDT) WBC 9.28 4.50 - 11.00 k/uL [facility] DEPARTMENT OF PATHOLOGY AND GENOMIC MEDICINE RBC 3.72 (L) 4.20 - 5.50 m/uL [facility] DEPARTMENT OF PATHOLOGY AND GENOMIC MEDICINE HGB 11.5 (L) 12.0 - 16.0 g/dL [facility] DEPARTMENT OF PATHOLOGY AND GENOMIC MEDICINE HCT 36.1 (L) 37.0 - 47.0 % [facility] DEPARTMENT OF PATHOLOGY AND GENOMIC MEDICINE MCV 97.0 82.0 - 100.0 fL [facility] DEPARTMENT OF PATHOLOGY AND GENOMIC MEDICINE MCH 30.9 27.0 - 34.0 pg [facility] DEPARTMENT OF PATHOLOGY AND GENOMIC MEDICINE MCHC 31.9 31.0 - 37.0 g/dL [facility] DEPARTMENT OF PATHOLOGY AND GENOMIC MEDICINE RDW - SD 50.5 37.0 - 55.0 fL [facility] DEPARTMENT OF PATHOLOGY AND GENOMIC MEDICINE MPV 10.5 8.8 - 13.2 fL [facility] DEPARTMENT OF PATHOLOGY AND GENOMIC MEDICINE Platelet count 190 150 - 400 k/uL [facility] DEPARTMENT OF PATHOLOGY AND GENOMIC MEDICINE Nucleated RBC 0.00 /100 WBC [facility] DEPARTMENT OF PATHOLOGY AND GENOMIC MEDICINE Neutrophils 78.3 (H) 39.0 - 69.0 % [facility] DEPARTMENT OF PATHOLOGY AND GENOMIC MEDICINE Lymphocytes 12.8 (L) 25.0 - 45.0 % [facility] DEPARTMENT OF PATHOLOGY AND GENOMIC MEDICINE Monocytes 8.1 0.0 - 10.0 % [facility] DEPARTMENT OF PATHOLOGY AND GENOMIC MEDICINE Eosinophils 0.2 0.0 - 5.0 % [facility] DEPARTMENT OF PATHOLOGY AND GENOMIC MEDICINE Basophils 0.2 0.0 - 1.0 % [facility] DEPARTMENT OF PATHOLOGY AND GENOMIC MEDICINE Immature granulocytes 0.4Comment: 0.0 - 1.0 % [facility] DEPARTMENT OF "Immature PATHOLOGY AND GENOMIC granulocytes" MEDICINE (promyelocytes, myelocytes, metamyelocytes) Specimen Blood Performing Organization Address City/State/Zipcode Phone Number [facility] DEPARTMENT OF PATHOLOGY AND [address] [place] [address] Cv cta pre afib pulmonary vein mapping (11/07/2017 3:34 PM CDT) Narrative Performed At [facility] Nuclear Cardiology and Cardiac CT [address] [place] [address] CTA Chest Non-Coronary with Contrast Report Pat.Name:DIANNE JUÁREZ Pat.ID:[id number] .Date: 11/07/2017 Refer.MD:AYAAN PARK MD Exam Time: 2:58:00 PM Study Type:CTA Chest Non-Coronary W Contrast Height:61inWeight: 214lb BSA: 1.95 m2 DOBAge:1935,82Y Sex: FEMALEBP:132/60 HR:66 bpm Nuclear Tech:ALESHIA Pulido(N)(CT) CPT - 4: CTA Chest non coronary [address] Nuclear Event ID:[id number] Order ID:[id number] Reason for Study:Pre A-Fib Ablation for Pulmonary Vein Mapping Procedures:CTA Chest Non- Coronary Race:C SUMMARY: Technique: IV contrast was administered and sequential 0.[address] cuts were obtained through the chest using [facility] Cloud[employer] CT scanner. Post-processing and 3D reconstruction were done using the Sci[employer] workstation. Interactive image viewing and volumetric display [...] Cardiovascular CTA Protocol and interpreted by a Industrial Relations Analyst.Should a more comprehensive assessment of non-cardiovascular findings be desired, please consult a radiologist.These images are available in the [facility] [employer]am PACS system. Signed 11/07/2017 06:24 PM Prasad Lutz MD Procedure Note Interface, Radiology Results In - 11/07/2017 6:25 PM CDT Nuclear Cardiology and Cardiac CT [address] [place] [address] CTA Chest Non-Coronary with Contrast Report Pat.Name: DIANNE JUÁREZ Letty.ID: [id number] .Date: 11/07/2017 Refer.MD: AYAAN PARK MD Exam Time: 2:58:00 PM Study Type:CTA Chest Non-Coronary W Contrast Height: 61in Weight: 214lb BSA: 1.95 m2 Age: 2 1935,82Y Sex: FEMALE BP: 132/60 HR: 66 bpm Nuclear Tech:ALESHIA Pulido(N)(CT) CPT - 4: CTA Chest non coronary [address] Nuclear Event ID:[id number] Order ID: [id number] Reason for Study:Pre A-Fib Ablation for Pulmonary Vein Mapping Procedures:CTA Chest Non- Coronary Race: C SUMMARY: Technique: IV contrast was administered and sequential 0.[address] cuts were obtained through the chest using the Siemens Somatom Force CT scanner. Post-processing and 3D reconstruction were done using the [employer] workstation. Interactive image viewing and volumetric display [...] Cardiovascular CTA Protocol and interpreted by a Industrial Relations Analyst. Should a more comprehensive assessment of non-cardiovascular findings be desired, please consult a radiologist. These images are available in the [facility] [employer] PACS system. Signed 11/07/2017 06:24 PM Prasad Lutz MD Performing Organization Address City/State/Zipcode Phone Number [facility] [address] [place] [address] Echocardiogram transesophageal (11/07/2017 3:16 PM CDT) Narrative Performed At [facility] Transesophageal Echo Report [address], [address]Name:DIANNE JUÁREZ [facility].ID:[id number] .Date: 11/07/2017 Refer.MD:AYAAN PARK MD Exam Time: 12:48:00 PM Study Type:RADHA Height:60inWeight: 214lb BSA: 1.92 m2 DOBAge:1935,82Y Sex: FEMALEBP:145/83 HR:64 bpmSonogrphr: Jevon Thakur MD Pat. Stat.:OutpatientStudy Status:Final Echo Event ID:[id number] Order ID:[id number] Reason for Study:Atrial fibrillation History / Clinical:Diabetes, Hyperlipidemia, Hypertension, Arrhythmias, Atrial Fibrillation Procedures:Transesophageal Echo with Colorflow Doppler Race:C SUMMARY: No thrombus or mass is visualized in the LA or LA appendage. FINDINGS: RADHA:The attending process treater performed the RADHA procedure and waspresent for [...] SedationASA Class: 3 Physician: Akash Akins MD Commodity Industry Analyst: Jevon Thakur MD Pre TEEBP HR Post RADHA BP HR 145/83 75288/72 62 Meds:Viscous xylocaine, Cetacaine spray to oropharynx, Versed 2 mg IV, Fentanyl 50 mcg IV Complications: None Condition: Stable MEASUREMENTS: 2D Parasternal Long Terrell LVOT 1.8 cmAo Rtd 3.9 cm Ao An1.9 cm Signed 11/07/2017 05:15 PM Akash Akins MD Procedure Note Interface, Radiology Results In - 11/07/2017 5:15 PM CDT Transesophageal Echo Report [address], [place], [place] [address] Letty.Name: DIANNE JUÁREZ.ID: [id number] .Date: 11/07/2017 Refer.MD: AYAAN PARK MD Exam Time: 12:48:00 PM Study Type:RADAH Height: 60in Weight: 214lb BSA: 1.92 m2 Age: 2 1935,82Y Sex: FEMALE BP: 145/83 HR: 64 bpm Sonogrphr: Jevon Thakur MD Pat. Stat.:Outpatient Study Status:Final Echo Event ID:[id number] Order ID: [id number] Reason for Study:Atrial fibrillation History / Clinical:Diabetes, Hyperlipidemia, Hypertension, Arrhythmias, Atrial Fibrillation Procedures:Transesophageal Echo with Colorflow Doppler Race: C SUMMARY: No thrombus or mass is visualized in the LA or LA appendage. FINDINGS: RADHA: The attending process treater performed the RADHA procedure and was present [...] ASA Class: 3 Physician: Akash Akins MD [employer] Analyst: Jevon Thakur MD Pre RADHA BP HR Post RADHA BP HR 145/83 64 144/72 62 Meds: Viscous xylocaine, Cetacaine spray to oropharynx, Versed 2 mg IV, Fentanyl 50 mcg IV Complications: None Condition: Stable MEASUREMENTS: 2D Parasternal Long Terrell LVOT 1.8 cm Ao Rtd 3.9 cm Ao An 1.9 cm Signed 11/07/2017 05:15 PM Akash Akins MD Performing Organization Address City/State/Zipcode Phone Number [facility] [phone] [place] [address] after 05/30/2017 Insurance Payer Benefit Plan / Group Subscriber ID Type Phone Address MEDICARE MEDICARE PART A AND B xxxxxxxxxxx Medicare [place], [place] Advance Directives Patient has advance care planning documents on file. For more information, please contact:[facility] [place] [address]
--- OUTSIDE RECORDS SUMMARY | 2018-05-31 15:30 | XMS REPORT | Continuity of Care Document ---
:1935 Author Organization Interface Problems Problem Status Onset Classification Date Comments Source Date Reported AFIB Active 01/06/[address] Diabetes Active 03/24/19 Finding 03/24/[address],[facility] [place] Anemia Active [...] [place] Hypertension Active 03/24/19 Finding 03/24/[address],[facility] [place] Cellulitis, leg Resolved 01/26/20 Finding 03/24/[address] [facility] [facility] [place] Dehydration Active 11/27/19 Finding 03/24/[address] [facility] [facility] [place] UTI Active 05/15/19 Finding 03/24/[address] [facility] [facility] [place] Vomiting Resolved 05/15/19 Finding 03/24/[address] [facility] [facility] [place] DX:ABDOMINAL Active 06/26/19 [facility] STRESS DYSPNEA [address] [place] [address] Atrial Resolved Problem 06/29/2014 [facility] fibrillation [facility] High cholesterol Resolved Problem 06/29/2014 [facility] Thyroid<sup>1</starr Resolved Problem 06/29/2014 1hypo [facility] Urolithiasis Active Finding 03/24/[address] [facility] Urosepsis Active Finding 03/24/[address] [facility] [place] OTHER FORMS OF Active [facility] Medications Medication Details Route Status Patient Ordering Order Source Instructions Provider Date Lisinopril DAILY Active Katte [facility] [place] Furosemide DAILY Active [facility]17 [facility] [place] Darifenacin AT BEDTIME Active [facility] 016 [facility] [place] rivaroxaban 20 20 mg=1 Active [facility] MG Oral Tablet tab, PO, 015 Medical [Xarelto] QPM, 0 Center Refill(s) glimepiride 1 mg 1 mg=1 Active [place] oral tablet tab, PO, 015 Medical BID, # 30 Center tab, 0 Refill(s) lisinopril 2.5 2.5 mg=1 Active [facility] mg oral tablet tab, PO, 015 Medical Daily, # Center 30 tab, 0 Refill(s) levothyroxine 150 Active [facility] 150 mcg (0.15 microgram= 015 Medical mg) oral tablet 1 tab, PO, Center Daily, # 30 tab, 0 Refill(s) simvastatin 10 10 mg=1 Active [facility] mg oral tablet tab, PO, 015 Medical Bedtime, # Center 30 tab, 0 Refill(s) solifenacin 10 mg=1 Active [facility] succinate 10 MG tab, PO, 015 Medical Oral Tablet Daily, # Center [VESICARE] 30 tab, 0 Refill(s) metoprolol 25 mg=1 Active [facility] tartrate 25 mg tab, PO, 015 Medical oral tablet BID, # 180 Center tab, 0 Refill(s) Aspirin 81 MG 81 mg=1 Active [facility] Enteric Coated tab, PO, 015 Medical Tablet Daily, # 0 Center tab, 0 Refill(s) Metoprolol TWICE Active [facility] St. Tartrate DAILY 014 [facility] [place] Rivaroxaban DAILY Active [facility] 014 [facility] [place] Clindamycin Hcl THREE Active [facility] St. TIMES A 012 [facility] DAY [place] Glimepiride TWICE Active [facility] St. DAILY 012 [facility] [place] Levothyroxine DAILY Active [facility] St. Sodium 012 [facility] [place] Lisinopril DAILY Active [facility] [place] Simvastatin AT BEDTIME Active [facility] St[facility] 012 [facility] [place] Sulfamethoxazole TWICE Active [facility]Trimethoprim DAILY 012 [facility] [place] Allergies, Adverse Reactions, Alerts Substance Category Reaction Severity Reaction Status Date Comments Source type Reported Sulfa Rash Allergy to Active [facility] St. (Sulfonamid Substance 7 [facility] [place] Antibiotics ) tape Rash Mild Allergy to Active [facility] St. Substance 7 [facility] [place] Adhesives Unknown Allergy to Active [facility] St. Substance 7 [facility] [place] Adhesive Assertion Drug Active [facility] sulfa drugs Assertion Drug Active [facility] Immunizations Immunization Date Given Site Status Last Updated Comments Source Results Order Name Results Value Reference Date Interpretation Comments Source Range Laboratory Hemoglobin 9.7 g/dL 12.0 - 03/[address] [facility] St. Studies 15.0 [facility] [place] Laboratory Hematocrit 30.7 % 36.0 - 03/24 [facility]. Studies 45.0 [facility] [place] Laboratory Iron Level 7.0 ug/dL 28 - 170 03/[address] [facility] St. Studies /2017 [facility] [place] Laboratory Bedside 145 mg/dl 65 - 120 03/23 [facility]. Studies Glucose /2017 [facility] [place] Laboratory Hemoglobin 6.6 % 4 - 6.0 03/23 [facility]. Studies A1c /2017 [facility] [place] Laboratory White Blood 6.5 K/uL 4.3 - 10.9 03/[address] [facility] St. Studies Count /2017 [facility] [place] Laboratory Red Cell 18.0 % 12.1 - 03/[address] [facility] St. Studies Distribution 15.2 [facility] Width [place] Laboratory Red Blood 3.47 M/uL 3.86 - 03/23 [facility]. Studies Count 4.86 [facility] [place] Laboratory Platelet 275 K/uL 152 - 406 03/23 [facility]. Studies Count /2017 [facility] [place] Laboratory Neutrophils 67.6 % 41.7 - 03/[address] [facility] St. Studies % 73.7 /2017 [facility] [place] Laboratory Monocytes % 12.8 % 3.3 - 12.3 03/[address] [facility] St. Studies /2017 [facility] - [...] Absolute 4.4 K/uL 1.8 - 8.0 03/[address] [facility] St. Studies Neutrophil [facility] [place] Laboratory Absolute 0.8 K/uL 0.1 - 1.3 03/[address] [facility] St[facility] Studies Monocytes [facility] (CBC) [place] Laboratory Absolute 1.2 K/uL 0.7 - 4.9 03/[address] [facility] St. Studies Lymphocytes [facility] - (CBC) [place] Laboratory Absolute 0.1 K/uL 0 - 0.5 03/[address] [facility] St. Studies Eosinophils [facility] - (CBC) [place] Laboratory Absolute 0.0 K/uL 0 - 0.5 03/[address] [facility] St. Studies Basophils [facility] - (CBC) [place] Laboratory Sodium Level 141 mEq/L 135 - 145 03/23 St. Studies [facility] [place] Laboratory Serum Total 5.5 g/dL 6.0 - 8.3 03/[address] [facility] St[facility] Studies Protein [facility] [place] Laboratory Prealbumin 14.7 mg/dl 18 - 38 03/[address] [facility] St[facility] Studies [facility] [place] Laboratory Potassium 4.4 mEq/L 3.6 - 5.0 03/[address] [facility] St[facility] Studies Level /2017 [facility] [place] Laboratory Glucose 106 mg/dL 65 - 120 03/[address] [facility] St[address] Studies Level /2017 [facility] [place] Laboratory Estimat 72 mL/min [address] [facility] St. Studies Glomerular /2017 [facility] - Filtration [place] Rate Laboratory Creatinine 0.77 mg/dL 0.44 - 03/[address] [facility] St. Studies 1.00 [facility] [place] Laboratory Chloride 106 mEq/L 101 - 111 03/[address] [facility] St[address] Studies Level /2017 [facility] [place] Laboratory Carbon 29 mEq/L 21 - 31 03/[address] [facility] St. Studies Dioxide /2017 [facility] Level [place] Laboratory Calcium 9.0 mg/dL 8.5 - 10.5 03/[address] [facility] St. Studies Level /2017 [facility] [place] Laboratory Blood Urea 18 mg/dL 6 - 20 03/23 [facility]. Studies Nitrogen /2017 [facility] [place] Laboratory Albumin 3.5 g/dL 3.2 - 5.5 03/23 [facility]. Studies /2017 [facility] [place] Laboratory Segmented 86 % 40 - 80 01/30 [facility]. Studies Neutrophils [facility] [place] Laboratory Rouleau Rouleau 01/30 [facility]. Studies [facility] [place] Laboratory Polychromasi Polychroma 01/30 [facility]. Studies a iglesia [facility] [place] Laboratory Ovalocytes Ovalocytes 01/30 [facility]. Studies [facility] [place] [facility] Monocytes 3 % 0 - 10 01/30 [facility]. [facility] [place] Laboratory Lymphocytes 11 % 15 - 42 01/30 [facility]. [facility] [place] Laboratory Hypersegment Hypersegme 01/30 [facility]. Studies ed nted [facility] - Neutrophils Neutrophil [place] Laboratory Blood Blood 01/30 [facility]. Studies Morphology Morphology [facility] - Comment Comment [place] Laboratory Anisocytosis Anisocytos 01/30 [facility]. Studies is [facility] [place] BLOOD BANK Antibody Negative 06/26 [facility] RESULTS [facility] (06/26/14 5:48 AM) Center BLOOD BANK ABO/Rh B POS 06/26 [place] RESULTS /2014 Medical Center CHEM PANEL Magnesium 2.0 mg/dL 1.8 - 2.4 06/26 [facility] ELECTROLYT AGAP 13.8 meq/L 10.0 - 06/26 [facility] 20.0 [facility] ELECTROLYT eGFR 70 06/26 1Result Comment: The eGFR is calculated using the CKD-EPI formula. In most young, healthy individuals the eGFR will be >90 mL/ min/1.73m2. The eGFR declines with age. An eGFR of 60-89 may be normal in [facility] mL/min/1. some populations, particularly the elderly, for whom the CKD-EPI formula has not been extensively validated. Use of the eGFR is not recommended in the following populations: [address] Individuals with unstable creatinine concentrations, including [...] Lvl 8.8 mg/dL 8.5 - 10.5 06/26 [facility] ELECTROLYT Chloride Lvl 105 meq/L 95 - 109 06/26 [facility] ELECTROLYT CO2 26 meq/L 24 - 32 06/26 [facility] ELECTROLYT Potassium 3.8 meq/L 3.5 - 5.1 06/26 [facility] ELECTROLYT Sodium Lvl 141 meq/L 135 - 145 06/26 [facility] ELECTROLYT Creatinine 0.8 mg/dL 0.5 - 1.4 06/26 [facility] ELECTROLYT BUN 16 mg/dL 7 - 22 06/26 [facility] ELECTROLYT Glucose Lvl 143 mg/dL 70 - 99 06/26 2Interpretive Data: Adult reference range values reflect the clinical guidelines [facility] of the [place] [employer]. [facility] HEMATOLOGY Eosinophils 1.7 % 0.0 - 4.0 06/26 [facility] HEMATOLOGY Basophils 0.5 % 0.0 - 1.0 06/26 [facility] HEMATOLOGY Lymphocytes 20.0 % 20.0 - 06/26 [facility] 40.0 Medical Center HEMATOLOGY Monocytes 11.3 % 2.0 - 12.0 06/26 [facility] HEMATOLOGY Segs 66.5 % 45.0 - 06/26 75.0 [facility] HEMATOLOGY Eosinophils 0.1 K/CMM 0.0 - 0.5 06/26 # /2014 [facility] HEMATOLOGY Segs-Bands # 4.7 K/CMM 1.5 - 8.1 06/26 [facility] HEMATOLOGY Lymphocytes 1.4 K/CMM 1.0 - 5.5 06/26 # [facility] HEMATOLOGY Monocytes # 0.8 K/CMM 0.0 - 0.8 06/26 [facility] HEMATOLOGY INR 1.08 0.85 - 06/26 4Interpretive Data: RECOMMENDED RANGES FOR PROTIME INR: [facility] 1. 2.0-3.0 for most medical and surgical thromboembolic states. Medical 2.5-3.5 for artificial heart valves and recurrent embolism. Center INR SHOULD BE USED ONLY FOR PATIENTS ON STABLE ANTICOAGULANT THERAPY. HEMATOLOGY PT 14.1 s 12.0 - 06/26 14.7 [facility] HEMATOLOGY PTT 30.5 s 22.9 - 06/26 5Interpretive 35.8 Data: Heparin [facility] Therapeutic Center Range: 57 - 92 Seconds HEMATOLOGY MPV 9.1 fL 7.4 - 10.4 06/26 [facility] HEMATOLOGY MCH 29.5 pg 27.0 - 06/26 31.0 [facility] HEMATOLOGY MCV 89.3 fL 80.0 - 06/26 98.0 [facility] HEMATOLOGY Platelet 195 K/CMM 133 - 450 06/26 [facility] HEMATOLOGY RDW 15.5 % 11.5 - 06/26 14.5 [facility] HEMATOLOGY MCHC 33.0 g/dL 32.0 - 06/26 36.0 [facility] HEMATOLOGY WBC 7.1 K/CMM 3.7 - 10.4 06/26 /2014 [facility] HEMATOLOGY Hgb 12.7 g/dL 12.0 - 06/26 16.0 [facility] HEMATOLOGY RBC 4.30 M/CMM 4.20 - 06/26 [place] 5.40 [facility] HEMATOLOGY Hct 38.4 % 36.0 - 06/26 [facility] 48.0 /2014 [facility] LIPIDS CHD Risk 6.12 3.90 - 06/26 [facility] 5.80 [facility] LIPIDS VLDL 77 06/26 [facility] LIPIDS LDL 51 mg/dL <=99 mg/dL 06/26 [facility] (Calculated) [facility] LIPIDS HDL 25 mg/dL >=61 mg/dL 06/26 [facility] LIPIDS Trig 386 mg/dL <=149 06/26 [facility] mg/dL [facility] LIPIDS Chol 153 mg/dL <=199 06/26 3Result [facility] mg/dL Comment: [facility] Center Slightly Hemolyzed. Vital Signs Vital Sign [...] [place] Systolic (mm Hg) 161 06/26/2014 [facility] Diastolic (mm Hg) 71 06/26/2014 [facility] Systolic (mm Hg) 147 06/26/2014 [facility] Diastolic (mm Hg) 71 06/26/2014 [facility] Respitory Rate 16 06/26/2014 [facility] Systolic (mm Hg) 131 06/26/2014 [facility] Diastolic (mm Hg) 62 06/26/2014 [facility] Respitory Rate 16 06/26/2014 [facility] Respitory Rate 16 06/26/2014 [facility] Weight 109.545 06/26/2014 [facility] Height 157.48 cm 06/26/2014 [facility] BMI Calculated 44.17 06/26/2014 [facility] Temperature Oral (F) 97.7 F 06/26/2014 [facility] Encounters Location Location Encounter Encounter Reason Attending ADM DC Status Source Details Type Number For Provider Date Date [facility] [id number] Ayaan 06/26 06/26 [facility] Ricardo /2014 /2014 [facility] [id number] 12/[address] [facility]2016 [facility] [place] [facility] [facility] [id number] 01/[address] [facility] Referred [facility]2016 [facility] [place] [facility] St. Departed [id number] 02/06 02/[address] [facility] Surgical /2016 [facility] [place] [facility] [place] [facility] St. Registered [id number] 03/[address] [facility] Recurring /2017 [facility] [place] [facility] St. Discharged [id number] 03/23 03/[address] [facility]2017 [facility] [place] Procedures Procedure Code Date Perfomer Comments Source Anaerobic Blood 03/23/[address] [facility] St[facility] Birdie - Culture [place] Aerobic Blood 03/23/[address] [facility] St[facility] Packer - Culture [place] OCCLUSION OF [id number] 02/06/[address] [facility] St. Packer - LOWER VEIN, OPEN [place] APPROACH TRANSFER RIGHT [id number] 02/06/[address] [facility] St. Packer - LOWER LEG SKIN, [place] EXTERNAL APPROACH VASCULAR SURGERY [id number] 02/06/[address] [facility] StByron Packer - PROCEDURE [place] Back [id number] 1back surgery [facility]<sup>1</sup> with shaved Center off spur Carpal tunnel [id number] [facility] Gallbladder [id number] [facility] Kidney stone [id number] [facility] Knee replacement [id number] [facility]
[2018-05-31] MEDS ORDERED: D50W 25 GM/50 ML SYRINGE IV PRN (16:16)
[2018-05-31] MEDS ORDERED: GLUCAGON 1 MG/VIAL IM PRN (16:16)
[2018-05-31] MEDS: INSULIN -REGULAR HUMAN 50 UNIT/0.5 ML ML SQ SCH ×2 (16:30→20:11)
--- NOTE | 2018-05-31 16:31 | RAD REPORT ---
EXAM DESCRIPTION: CT - Stone Protocol - 05/31/2018 4:20 pm CLINICAL HISTORY: Flank pain. kidney failure COMPARISON: CTSTONE PROTOCOL dated 09/14/2013 TECHNIQUE: Axial images were obtained without oral or IV contrast. Lack of contrast limits solid org an and vascular assessment. The [id number] spans the entirety of the system partially obscuring uppermost abdomen and lung bases. Coronal reformatted images were obtained and reviewed. All CT scans are performed using dose optimization technique as appropriate and may include automated exposure control or mA/KV adjustment according to patient size. FINDINGS: The lower lung wong are clear. Imaged portions of the liver and spleen show no suspicious findings on non-contrast imaging. The panc reas and adrenal glands are normal. No pathologic lymphadenopathy in the abdomen or pelvis. Small calculi are seen in the superior calyx of the right kidney, the largest measuring 5 mm. No hydr onephrosis. No left-sided renal calculi. No bowel obstruction, free air, free fluid or abscess. Prominent stool in the colon. Sigmoid divertic ulosis coli is present without acute diverticulitis.The appendix is normal. Advanced degenerative change involves the lumbar spine with levoscoliosis. Small fat containing ventr al hernia. IMPRESSION: Mild right nephrolithiasis. No hydronephrosis or other worrisome renal finding. Prominent diverticulosis of the sigmoid colon without diverticulitis.
[2018-05-31 16:58] VITALS: BMI 37.0
[2018-05-31] MEDS: CEFPODOXIME PROXETIL 200 MG PO SCH (18:15)
[2018-05-31] MEDS: NACHLORIDE 0.45% 1,000 ML IV SCH (20:10)
[2018-05-31] MEDS: METOPROLOL TAR 25 MG TAB PO SCH (20:11)
[2018-05-31] MEDS: ATORVASTATIN 10 MG TAB PO SCH (20:11)
[2018-05-31] MEDS: FAMOTIDINE 20 MG TAB PO SCH (20:11)
[2018-05-31] MEDS ORDERED: HOME MED 1 EA UNK (Simvastatin [Simvastatin] 10 MG) PO SCH (21:00)
[2018-06-01] MEDS: LEVOTHYROXINE SOD 0.075 MG TAB PO SCH (05:32)
[2018-06-01] MEDS: CEFPODOXIME PROXETIL 200 MG PO SCH ×2 (05:32→17:59)
[2018-06-01] MEDS: NACHLORIDE 0.45% 1,000 ML IV SCH ×2 (05:51→19:40)
[2018-06-01] MEDS ORDERED: LEVOTHYROXINE 150 MCG TAB PO SCH (06:00)
[2018-06-01] MEDS: INSULIN -REGULAR HUMAN 50 UNIT/0.5 ML ML SQ SCH ×4 (07:30→21:10)
[2018-06-01 07:35] LABS: Potassium 4.5 mmol/L (3.5-5.1)
[2018-06-01] MEDS ORDERED: LISINOPRIL 5 MG TAB PO SCH (09:00)
[2018-06-01] MEDS: FAMOTIDINE 20 MG TAB PO SCH ×2 (10:40→21:09)
[2018-06-01] MEDS: METOPROLOL TAR 25 MG TAB PO SCH ×2 (10:40→21:08)
[2018-06-01] MEDS: ASPIRIN EC 81 MG TAB PO SCH (10:40)
--- NOTE | 2018-06-01 11:36 | P.CNS ---
Date of Consult: 06/01/18 Reason for Consult: RODNEY Chief Complaint: Sent for abnormal RFT History of Present Illness: An 83 Y/o woman with PMHx of DM , HTN, CHF on lasix , AFib S/P lariat procedure not on AC and Hx of Nephrolithiasis recently seen by her [employer], instructed to increase lasix to 40mg bid for 1wk, alst day 2 days bfeore admission then switch to once daily pt presented to ER last week for weakness, Cr up to 2.0, recieved IVF with improvement and received Abx for UTI last night received IVF and Cr down to baseline today no nausea ,vomiting , diarrhea or constipation Allergies Sulfa (Sulfonamide Antibiotics) Allergy (Verified 02/03/17 11:17) Rash tape Adverse Reaction (Mild, Uncoded 04/09/18 13:12) Rash Adhesives Adverse Reaction (Uncoded 04/09/18 13:12) Unknown Home Medications: Levothyroxine Sodium [Synthroid] 150 mcg PO DAILY 09/02/11 Lisinopril [Zestril] 2.5 mg PO DAILY 09/02/11 Simvastatin 10 mg PO BEDTIME 09/02/11 Metoprolol Tartrate [Lopressor*] 25 mg PO BID 06/19/13 Glimepiride [Amaryl] 1 mg PO BID 04/24/17 Aspirin [Aspirin EC 81 MG] 81 mg PO DAILY 04/09/18 Famotidine [Pepcid] 20 mg PO BID 04/09/18 Cefpodoxime Proxetil [Vantin] 200 mg PO Q12H 05/31/18 - Past Medical/Surgical History Diabetic: Yes -: Diabetes -: HTN -: Hypothyroidism -: high cholesterol -: Afib -: Hypothyroidism -: Hyperlipidemia -: Atrial Fibrillation -: Cholecystectomy -: Back surgery -: Left Knee Replacement -: Kidney Stone Removal -: Cataracts sx -: heart valve surgery - Family History Mother Medical History: Hypertension, Diabetes, Cancer - Social History Smoking Status: Unknown if ever smoked Alcohol use: No CD- Drugs: No Caffeine use: No Place of Residence: Home Physical Examination Temp Pulse Resp BP Pulse Ox 96.9 F 55 18 130/78 97 06/01/18 08:00 06/01/18 10:40 06/01/18 08:00 06/01/18 10:40 06/01/18 08:00 General: In no apparent distress, Oriented x3 HEENT: Atraumatic Neck: Supple, Without JVD or thyroid abnormality Respiratory: Clear to auscultation bilaterally, Normal air movement Cardiovascular: Other (trace Le edema ), Edema Gastrointestinal: Normal bowel sounds, Soft and benign Integumentary: No rashes Laboratory Data (last 24 hrs) 06/01/18 07:04: Sodium 141, Potassium 4.5, BUN 48 H D, Creatinine 1.11, Glucose 96 - Problems (1) RODNEY (acute kidney injury) Current Visit: Yes Status: Acute (2) Diabetes Onset Date: 03/24/17 Current Visit: No Status: Chronic Conclusions/Impression: RODNEY due to overdiuresis and BRIDGETTE Cr down to baseline Abd CT: no hydro off lasix and lisinopril will dc IVF this evening to resume lasix as an op 40mg Qother day , and increase as per Wt HTN on the low side now will reduce metoprolol Afb HR on the low side will reduce metoprolol DM as per PCP UTI cont Abx
[2018-06-01] MEDS: CEFPODOXIME 200 MG PO SCH (21:00)
[2018-06-01] MEDS: ATORVASTATIN 10 MG TAB PO SCH (21:10)
[2018-06-01 22:22] VITALS: O2SAT 93
--- NOTE | 2018-06-02 01:06 | HP ---
Date of Admission: 05/31/2018 Reason For Admission: Renal failure. History Of Present Illness: An 83-year-old female was seen in the emergency room and subsequently in the office for urinary tract infection. However, she had sudden elevation of BUN and creatinine. A ccording to the family, she has not been drinking fluids. In view of this situation, the patient is admitted for observation to give IV fluids and improve her kidney function. The patient denied any h istory of other symptoms other than fatigue. Past Medical History: Positive for type 2 diabetes, hypertension, hypothyroidism, hyperlipidemia, an d chronic atrial fibrillation. Family History: Positive for diabetes and hypertension. Surgical History: Positive for gallbladder surgery, back surgery, cataract surgery, kidney stone rem oval, left knee replacement, heart valve surgery. Allergies: SULFA DRUGS. Home Medicines: Please refer to the chart. Physical Examination: General: Revealed an 83-year-old female, fully alert for her age. HEENT: Negative. Neck: Supple. JVD negative. Chest: Clear. Heart: Regular. Abdomen: Soft, nontender, pendulous. Extremities: No edema. Laboratory Data: Laboratory which was done as an outpatient prior to admission showed a BUN of 65, c reatinine 0.2. This is compared to a BUN of 36 six weeks ago. Assessment: 1.Dehydration. 2.[id number] renal failure. 3.Hypertension. 4.Hyperlipidemia. 5.Hypothyroidism. Plan: IV fluids. Follow the renal function. ELYSSA/JON Voice ID: [id number]
[2018-06-02] MEDS: LEVOTHYROXINE SOD 0.075 MG TAB PO SCH (06:07)
[2018-06-02] MEDS: INSULIN -REGULAR HUMAN 50 UNIT/0.5 ML ML SQ SCH (07:30)
[2018-06-02] MEDS: CEFPODOXIME 200 MG PO SCH (08:20)
[2018-06-02] MEDS: METOPROLOL TAR 25 MG TAB PO SCH (08:21)
[2018-06-02] MEDS: FAMOTIDINE 20 MG TAB PO SCH (08:21)
[2018-06-02 08:23] VITALS: BP 117/55
[2018-06-02] MEDS: ASPIRIN EC 81 MG TAB PO SCH (08:23)
[2018-06-02 09:19] VITALS: TEMP 97.8
== END 2018-06-02 10:16 | disposition home or self-care (01) ==
LOC: 2ND 15:25
PROVIDERS: ADMIT Internal Medicine; ATTEND Internal Medicine
DX: N17.9 Acute kidney failure, unspecified (principal); E86.0 Dehydration; E78.5 Hyperlipidemia, unspecified; E03.9 Hypothyroidism, unspecified; I12.9 Hypertensive chronic kidney disease with stage 1 through stage 4 chronic kidney disease, or unspecified chronic kidney disease; N18.9 Chronic kidney disease, unspecified; I48.2 Chronic atrial fibrillation; E11.8 Type 2 diabetes mellitus with unspecified complications; Z88.2 Allergy status to sulfonamides
CPT/HCPCS: 80048; 36415; 82962 ×7; 76377; 74176; G0379; G0378

== ENCOUNTER 2018-07-19 09:27 | Observation (INO) | payer OTHER ==
--- OUTSIDE RECORDS SUMMARY | 2018-07-19 09:31 | XMS REPORT | Clinical Summary ---
:1935 Author Organization [facility] Address [address] [place] [address] Care Team Providers Name Role Phone Asked, No Pcp Primary Care Provider Unavailable Allergies Active Allergy Reactions Severity Noted Date Comments Adhesive 04/23/2013 Tears skin Sulfasalazine Rash Low 11/06/2013 Medications Medication Sig Dispensed Refills Start Date End Date Status glimepiride 0 07/14/2016 Active (AMARYL) 1 MG tablet metoprolol tartrate 12.5 mg 2 (two) 0 08/14/2016 Active (LOPRESSOR) 25 mg times a day. tablet levothyroxine 0 07/14/2016 Active (SYNTHROID, LEVOXYL) 150 mcg tablet simvastatin (ZOCOR) 0 07/14/2016 Active 10 MG tablet furosemide (LASIX) Take 40 mg by 0 Active 40 mg/4 mL solution mouth daily. oral solution famotidine (PEPCID) Take 1 tablet 60 tablet 3 12/25/2017 Active 20 MG tablet (20 mg total) by 9 mouth 2 (two) times a day. aspirin (ECOTRIN) Take 1 tablet 30 tablet 3 12/26/2017 Active 81 MG enteric (81 mg total) by 9 coated tablet mouth daily. lisinopril Take 2.5 mg by 0 Active (PRINIVIL,ZESTRIL) mouth daily. 2.5 mg tablet lansoprazole Take 30 mg by 0 Active (PREVACID) 30 MG mouth daily. capsule dextran Administer 1 30 mL 0 06/15/2018 Active 70-hypromellose drop to both (ARTIFICIAL TEARS) eyes as needed 0.1-0.3 % drops (dry eyes). apixaban (ELIQUIS) Take 1 tablet (5 60 tablet 0 06/20/2018 Active 5 mg tablet mg total) by 0 mouth 2 (two) times a day. lisinopril 0 07/26/2016 Discontinued (PRINIVIL,ZESTRIL) 8 2.5 mg tablet XARELTO 20 mg 0 05/24/2016 Discontinued tablet 8 colchicine 0.6 mg Take 0.5 tablets 30 tablet 3 12/25/2017 Discontinued tablet (0.3 mg total) 9 by mouth 2 (two) times a day. clopidogrel Take 1 tablet 30 tablet 3 12/26/2017 Discontinued (PLAVIX) 75 mg (75 mg total) by 9 tablet mouth daily. apixaban (ELIQUIS) Take 2 tablets 24 tablet 0 06/15/2018 Discontinued 5 mg tablet (10 mg total) by 9 mouth 2 (two) times a day for 6 days. 10BID x 7days then 5 BID apixaban (ELIQUIS) Take 1 tablet (5 60 tablet 0 06/20/2018 Discontinued 5 mg tablet mg total) by 9 mouth 2 (two) times a day. apixaban (ELIQUIS) Take 2 tablets 24 tablet 0 06/15/2018 Discontinued 5 mg tablet (10 mg total) by 9 mouth 2 (two) times a day for 6 days. 10BID x 7days then 5 BID apixaban (ELIQUIS) Take 2 tablets 24 tablet 0 06/15/2018 5 mg tablet (10 mg total) by 9 mouth 2 (two) times a day for 6 days. 10BID x 6 days then 5 BID Hospital, Clinic, or Ordered Dose Route Frequency Start Date End Date Status Other Facility Administered Medication LORAZepam (ATIVAN) 1 mg oral once 09/02/2016 12/25/2017 Discontinued tablet 1 mg meperidine (PF) 75 mg IM once 09/02/2016 12/25/2017 Discontinued (DEMEROL) 75 mg/mL injection 75 mg Active Problems Problem Noted Date Acute deep vein thrombosis (DVT) of proximal vein of both lower 06/14/2018 extremities Acute pulmonary embolism 06/14/2018 A-fib 12/21/2017 Electrolyte and fluid disorder 12/20/2017 Atrial fibrillation, persistent 12/20/2017 Encounters Date Type Specialty Care Team Description 06/13/2018 - Hospital Encounter General Internal Derrek Valenzuela Acute deep vein thrombosis (DVT) of proximal vein of both lower extremities (HCC) (Primary Dx); 06/15/2018 Medicine MD Rocco Other acute pulmonary embolism with acute cor pulmonale (HCC); Ladonna Thomas Electrolyte and fluid disorder; MD Kaden Atrial fibrillation, persistent (HCC) 12/21/2017 Anesthesia Event Procedural Raymon Perkins Cardiology DESTINI Cote 12/21/2017 Surgery Procedural Maureen Douglas MD Cv left atrial Cardiology appendage closure- LARIAT [91870 (CPT)] 12/20/2017 - Hospital Encounter Cardiology RicardoDevora renteriael Atrial fibrillation, 12/25/2017 MD Larry persistent (HCC) (Primary Dx) 11/20/2017 Transcribe Orders Procedural Ricardo, Ayaan Persistent atrial Cardiology MD Larry fibrillation (Primary Dx) 11/07/2017 Hospital Encounter Procedural RicardoAyaan Atrial fibrillation Cardiology MD Larry unspecified type 11/07/2017 Hospital Encounter Procedural Ricardo, Ayaan Chronic atrial Cardiology MD Larry fibrillation 11/06/2017 Transcribe Orders Procedural Ricardo, Ayaan Atrial fibrillation, Cardiology MD Larry unspecified type (Primary Dx) 10/26/2017 Transcribe Orders Procedural RicardoAyaan Chronic atrial Cardiology MD Larry fibrillation (Primary Dx) after 07/18/2017 Immunizations Name Dates Previously Given Next Due [...] Vital Sign Reading Time Taken Blood Pressure 133/61 06/15/2018 8:36 AM CDT Pulse 55 06/15/2018 8:36 AM CDT Temperature 35.3 C (95.6 F) 06/15/2018 8:36 AM CDT Respiratory Rate 22 06/15/2018 8:36 AM CDT Oxygen Saturation 97% 06/15/2018 8:36 AM CDT Inhaled Oxygen Concentration - - Weight 99.8 kg (220 lb 1.6 oz) 12/24/2017 4:56 AM CDT Height 157.5 cm (5' 2") 06/13/2018 7:57 PM CDT Body Mass Index 40.26 12/20/2017 7:25 PM CDT Plan of Treatment Health Maintenance Due Date Last Done Comments SHINGLES VACCINES (#1) 1985 65+ PNEUMOCOCCAL VACCINE (1 of 2 - PCV13) 2000 PNEUMOCOCCAL POLYSACCHARIDE VACCINE AGE 65 AND OVER 2000 INFLUENZA VACCINE 09/27/2018 Implants Implanted Type 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 CBC WITH PLATELET AND Routine 06/15/2018 4:25 Results for this DIFFERENTIAL AM CDT procedure are in the results section. ESTIMATED GFR Routine 06/15/2018 4:00 Results for this AM CDT procedure are in the results section. BASIC METABOLIC PANEL Routine 06/15/2018 4:00 Results for this AM CDT procedure are in the results section. ANTI XA, UNFRACTIONATED Timed 06/14/2018 5:30 Results for this PM CDT procedure are in the results section. POC GLUCOSE Routine 06/14/2018 4:04 Results for this PM CDT procedure are in the results section. POC GLUCOSE Routine 06/14/2018 12:17 Results for this PM CDT procedure are in the results section. ANTI XA, UNFRACTIONATED Routine 06/14/2018 9:30 Results for this AM CDT procedure are in the results section. POC GLUCOSE Routine 06/14/2018 8:16 Results for this AM CDT procedure are in the results section. CT ANGIOGRAM PE CHEST STAT 06/14/2018 2:59 Results for this AM CDT procedure are in the results section. US DUPLEX VENOUS LOWER STAT 06/14/2018 2:30 Results for this EXTREMITY BILATERAL AM CDT procedure are in the results section. US DUPLEX ARTERIAL LOWER STAT 06/14/2018 12:11 Results for this EXTREMITY BILATERAL AM CDT procedure are in the results section. XR FOOT 3+ VW LEFT STAT 06/14/2018 12:07 Results for this AM CDT procedure are in the results section. XR CHEST 1 VW PORTABLE STAT 06/14/2018 12:07 Results for this AM CDT procedure are in the results section. ECG ED PRELIMINARY Routine 06/13/2018 9:46 Results for this INTERPRETATION PM CDT procedure are in the results section. ECG 12-LEAD STAT 06/13/2018 8:19 Results for this PM CDT procedure are in the results section. ESTIMATED GFR STAT 06/13/2018 8:14 Results for this PM CDT procedure are in the results section. COMPREHENSIVE METABOLIC STAT 06/13/2018 8:14 Results for this PANEL PM CDT procedure are in the results section. PARTIAL THROMBOPLASTIN STAT 06/13/2018 8:14 Results for this TIME (PTT) PM CDT procedure are in the results section. PROTHROMBIN TIME WITH INR STAT 06/13/2018 8:14 Results for this PM CDT procedure are in the results section. HC COMPLETE BLD COUNT STAT 06/13/2018 8:14 Results for this W/AUTO DIFF PM CDT procedure are in the results section. POC GLUCOSE Routine 12/25/2017 11:41 Results for this AM CDT procedure are in the results section. ECHOCARDIOGRAM 2D LIMITED Routine 12/25/2017 9:15 Results for this AM CDT procedure are [...] COLOR PM CDT procedure are in DOPPLER (77603) the results section. POC GLUCOSE Routine 12/23/2017 [...] CDT procedure are in the results section. CO AN ELECTIVE Routine 12/21/2017 8:49 ENDOTRACHEAL AIRWAY AM CDT Procedure Note - Rocco Becerra CRNA - 12/21/2017 8:49 AM CDT Airway Date/Time: 12/21/2017 8:33 AM Performed by: ROCCO BECERRA Authorized by: CARLOS ALBERTO MALONEY Location: OR Urgency: Elective Difficult Airway: No Anesthesiologist: CARLOS ALBERTO MALONEY Resident/MEDICAL VAN DRIVER/AA: ROCCO BECERRA Performed by: resident/MEDICAL VAN DRIVER/AA Preoxygenated with 100% O2: Yes C-spine Precautions [...] in DOPPLER COLORFLOW the results section. after 07/18/2017 Results POC glucose (06/15/2018 8:37 AM CDT)Only the most recent of21 resultswithin the time period is included. [facility] POC glucose 226 (H) 65 - 99 mg/dL [facility] Comment: [facility] Notified RN Meter ID: [id number] Public Health Program Manager: Raghu Khan Specimen Performing Organization Address City/State/Zipcode Phone Number [facility] DEPARTMENT OF PATHOLOGY AND [address] [place] [address] GENOMIC MEDICINE [address] [address] CBC with platelet and differential (06/15/2018 4:25 AM CDT)Only the most recent of3 resultswithin the time period is included. WBC 8.53 4.50 - 11.00 [facility] k/uL HOSPITAL RBC 3.46 (L) 4.20 - 5.50 [facility] m/uL HOSPITAL HGB 10.5 (L) 12.0 - 16.0 [facility] g/dL [facility] HCT 34.3 (L) 37.0 - 47.0 % [facility] MCV 99.1 82.0 - 100.0 [facility] MCH 30.3 27.0 - 34.0 pg [facility] MCHC 30.6 (L) 31.0 - 37.0 [facility] g/dL [facility] RDW - SD 60.5 (H) 37.0 - 55.0 fL [facility] MPV 10.6 8.8 - 13.2 fL [facility] Platelet count 170 150 - 400 k/uL [facility] Nucleated RBC 0.00 /100 WBC [facility] Neutrophils 83.8 (H) 39.0 - 69.0 % [facility] Lymphocytes 8.6 (L) 25.0 - 45.0 % [facility] Monocytes 6.1 0.0 - 10.0 % [facility] Eosinophils 0.2 0.0 - 5.0 % [facility] Basophils 0.1 0.0 - 1.0 % [facility] Immature granulocytes 1.2 0.0 - 1.0 % [facility] (H)Comment: HOSPITAL "Immature granulocytes" (promyelocytes , myelocytes, metamyelocytes ) Specimen Blood Performing Organization Address City/State/Zipcode Phone Number [facility] DEPARTMENT OF PATHOLOGY AND [address] [place] [address] GENOMIC MEDICINE [address] [address] Estimated GFR (06/15/2018 4:00 AM CDT)Only the most recent of7 resultswithin the time period is included. Estimated GFR 62 mL/min/1.73 [facility] Comment: HOSPITAL CatergoryUnitsInterpretation G1 >=90 Normal or high G2 60-89Mildly decreased [id number] to moderately decreased [id number] to severely decreased G4 15-29Severely decreased G5 <15Kidney failure The eGFR was calculated using the Chronic Kidney Disease Epidemiology Collaboration (CKD-EPI) equation. Interpretation is based on recommendations of the National Kidney Foundation-Kidney Disease Outcomes Quality Initiative (NKF-KDOQI) published in 2014. Specimen Plasma specimen Performing Organization Address City/[facility]/Zipcode Phone Number [facility] DEPARTMENT OF PATHOLOGY AND [address] [place] [id number] [place] [phone] Basic metabolic panel (06/15/2018 4:00 AM CDT)Only the most recent of6 resultswithin the time period is included. Sodium 138 135 - 148 mEq/L [facility] Potassium 4.5 3.5 - 5.0 mEq/L [facility] Chloride 105 98 - 112 mEq/L [facility] CO2 22 (L) 24 - 31 mEq/L [facility] Anion gap 11@ANIO 7 - 15 mEq/L [facility] BUN 26 (H) 8 - 23 mg/dL [facility] Creatinine 0.87 0.50 - 0.90 mg/dL [facility] Glucose 202 (H) 65 - 99 mg/dL [facility] Calcium 8.4 (L) 8.8 - 10.2 mg/dL [facility] Specimen Plasma specimen Performing Organization Address [facility] Centercode Phone Number [facility] DEPARTMENT OF PATHOLOGY AND [address] [place] [phone] Anti Xa, unfractionated (06/14/2018 5:30 PM CDT)Only the most recent of2 resultswithin the time period is included. Pathologist [facility] Anti Xa, 0.45Comment: 0.30 - 0.70 SWAYZEE unfractionated Therapeutic Range: U/mL [facility] 0.30 - 0.70 U/mL HOSPITAL Specimen Blood Performing Organization Address City/[facility]/Zipcode Phone Number [facility] DEPARTMENT OF PATHOLOGY AND [address] [place] [phone] Angiogram Pe Chest (06/14/2018 2:59 AM CDT) Specimen Narrative Performed At CT ANGIOGRAM PE CHEST [facility] CLINICAL INDICATION: PE suspectedhigh pretest prob COMPARISON:Chest radiograph 06/13/2018. CT 12/07/2013. TECHNIQUE:CT angiographic images of the chest were obtained during intravenous administration of iodinated contrast.Computerized, reformatted images and 3-D MIP images were obtained and archived (per CT pulmonary embolism protocol). CT scans are performed using radiation dose reduction techniques (iterative reconstruction and/or automated exposure control). Technical factors are evaluated and adjusted to ensure appropriate moderation of exposure. Automated dose management technology is applied to adjust radiation exposure while achieving a diagnostic quality image. FINDINGS: Pulmonary arteries: Diagnostic quality of study is adequate for the evaluation of pulmonary embolism. Pulmonary embolism within right lower lobar pulmonary artery. The main pulmonary artery measures 35 mm in luminal diameter. Exam evaluation: Adequate Clot burden: Mild Saddle embolus: No Ventricular septal bulging: Flattening. RV:LV: 1.1 cm Aorta:No aneurysm or dissection. Moderate calcific atherosclerosis. Lungs and large airways:Expiratory phase scan with low lung volumes. Dependent subsegmental atelectasis/scarring. Other scattered groundglass opacities also likely related to atelectasis. Pleura:No pleural effusion, pleural thickening, or pneumothorax. Heart and pericardium:Heart size is enlarged. No pericardial effusion. Mediastinum and doroteo:No mass or hematoma. Lymph nodes:No pathological adenopathy in the doroteo, axilla or mediastinum. Chest wall:Unremarkable. Bones:Diffuse osteopenia. Mild-moderate degenerative changes of the thoracic spine. Upper abdomen: Liver contour irregularity suggesting chronic liver disease.. IMPRESSION: 1. Pulmonary embolism within right lower lobar pulmonary artery. Mild clot burden. There is imaging evidence of right heart strain and pulmonary arterial hypertension. Findings discussed with DR. WALKER at 06/14/2018 3:07 AM, with acknowledgement of understanding. 2. Lungs without acute airspace consolidation. [facility]-[id number] Procedure Note [facility], Radiology Results Incoming - 06/14/2018 3:[address] ANGIOGRAM PE CHEST CLINICAL INDICATION: PE suspected high pretest prob COMPARISON: Chest radiograph 06/13/2018. CT 12/07/2013. TECHNIQUE: CT angiographic images of the chest were obtained during intravenous administration of iodinated contrast. Computerized, reformatted images and 3-D MIP images were obtained and archived (per CT pulmonary embolism protocol). CT scans are performed using radiation dose reduction techniques (iterative reconstruction and/or automated exposure control). Technical factors are evaluated and adjusted to ensure appropriate moderation of exposure. Automated dose management technology is applied to adjust radiation exposure while achieving a diagnostic quality image. FINDINGS: Pulmonary arteries: Diagnostic quality of study is adequate for the evaluation of pulmonary embolism. Pulmonary embolism within right lower lobar pulmonary artery. The main pulmonary artery measures 35 mm in luminal diameter. Exam evaluation: Adequate Clot burden: Mild Saddle embolus: No Ventricular septal bulging: Flattening. RV:LV: 1.1 cm Aorta: No aneurysm or dissection. Moderate calcific atherosclerosis. Lungs and large airways: Expiratory phase scan with low lung volumes. Dependent subsegmental atelectasis/scarring. Other scattered groundglass opacities also likely related to atelectasis. Pleura: No pleural effusion, pleural thickening, or pneumothorax. Heart and pericardium: Heart size is enlarged. No pericardial effusion. Mediastinum and doroteo: No mass or hematoma. Lymph nodes: No pathological adenopathy in the doroteo, axilla or mediastinum. Chest wall: Unremarkable. Bones: Diffuse osteopenia. Mild-moderate degenerative changes of the thoracic spine. Upper abdomen: Liver contour irregularity suggesting chronic liver disease.. IMPRESSION: 1. Pulmonary embolism within right lower lobar pulmonary artery. Mild clot burden. There is imaging evidence of right heart strain and pulmonary arterial hypertension. Findings discussed with DR. WALKER at 06/14/2018 3:07 AM, with acknowledgement of understanding. 2. Lungs without acute airspace consolidation. [facility]-[id number] Performing Organization Address City/State/Zipcode Phone Number [facility] [address] duplex venous lower extremity (06/14/2018 2:30 AM CDT) Specimen Narrative Performed At [facility] Vascular Ultrasound Laboratory Lower Extremity Venous Report [address] [place] [address] Pat.Name:DIANNE JUÁREZ Letty.ID:[id number] .Date: 06/14/2018 Refer.MD:PHYSICIAN, EMERGENCY, MD Exam Time: 1:44:00 AMStudy Type:LE Venous DOBAge:1935,83Y Sex: FEMALE Sonogrphr: Evin Murcia. Stat.:[facility]: , CPT - 4: 68201 Echo Event ID:[id number] Order ID:[id number] Reason for Study:Worsening bilateral leg pain X 2 weeks. Bilateral pedal blisters, swelling and weakness. History of DM, CKD, HTN, Afib s/p DAMIAN closure. Procedures:Colorflow, Grayscale/2D, Pulsed wave Doppler Race:C SUMMARY: DUPLEX SCAN OBSERVATIONS Deep VeinsSuperficial Veins RightLeft RightLeft GSV (prox) ObstructedNormal CFV Normal Normal (above knee) Femoral Normal Normal GSV (dist) Not Visualized Not Visualized Profunda Normal Normal (below knee) Popliteal Normal Normal PT (prox) Obstructed NormalSSV Not Visualized Normal PT (dist) Normal Normal Peroneal Obstructed Not Visualized Soleal ObstructedObstructed RIGHT:The greater saphenous vein is non-compressible with echogenic material within the lumen throughout the thigh with absent colorflow and Doppler signals.A single posterior tibial vein from the mid to proximal calf is non-compressible with echogenic material filling the lumen and colorflow and Doppler signals are absent. A single peroneal vein is non-compressible throughout its entire length with echogenic material filling the lumen and colorflow and Doppler signals are absent. There is a varicose vein noted in the medial calf with non-compressibility, echogenic material within the lumen and colorflow and Doppler signals are absent. The soleal vein is non-compressible with echogenic material within the lumen with absent colorflow and Doppler signals. There is normal compressibility with colorflow and Doppler signals present in the remaining visualized veins. LEFT: The soleal vein is non-compressible with echogenic material within the lumen with absent colorflow and Doppler signals.There is normal compressibility with colorflow and Doppler signals present in the remaining visualized veins. PRELIMINARY FINDINGS 1. Total superficial venous thrombosis ofthe right greater saphenous vein above the knee. 2. Total deep venous thrombosis of a single right posterior tibial vein from the mid to proximal calf. 3. Total deep venous thrombosis of a single peroneal vein throughout its length. 4. Total venous thrombosis of the soleal vein, bilaterally. 5. Obstructed varicose vein of the right medial calf. Results given to Derrek Valenzuela MD @ 1:31 am on 06/14/18. PHYSICIAN INTERPRETATION Venous examination of the both lower extremities demonstrated deep venous thrombosis of a single right posterior tibial vein from the mid to proximal calf,of a single peroneal vein throughout its length and venous thrombosis of the soleal vein, bilaterally. A superficial venous thrombosis ofthe right greater saphenous vein above the knee. Obstructed varicose vein of the right medial calf. Signed 06/14/2018 08:38 AM Lawson Garnica MD, RPVI Procedure Note Interface, Radiology Results In - 06/14/2018 8:38 AM CDT Vascular Ultrasound Laboratory Lower Extremity Venous Report [id number] [place] [address] Pat.Name: DIANNE JUÁREZ Pat.ID: [id number] St.Date: 06/14/2018 Refer.MD: PHYSICIAN, EMERGENCY, MD Exam Time: 1:44:00 AM Study Type:LE Venous Age: 2 1935,83Y Sex: FEMALE Sonogrphr: Sharon Iqbal RVT Pat. Stat.:Outpatient Room: [address] Vol: RF, CPT - 4: [address] Echo Event ID:[id number] Order ID: [id number] Reason for Study:Worsening bilateral leg pain X 2 weeks. Bilateral pedal blisters, swelling and weakness. History of DM, CKD, HTN, Afib s/p DAMIAN closure. Procedures:Colorflow, Grayscale/2D, Pulsed wave Doppler Race: C SUMMARY: DUPLEX SCAN OBSERVATIONS Deep Veins Superficial Veins Right Left Right Left GSV (prox) Obstructed Normal CFV Normal Normal (above knee) Femoral Normal Normal GSV (dist) Not Visualized Not Visualized Profunda Normal Normal (below knee) Popliteal Normal Normal PT (prox) Obstructed Normal SSV Not Visualized Normal PT (dist) Normal Normal Peroneal Obstructed Not Visualized Soleal Obstructed Obstructed RIGHT:The greater saphenous vein is non-compressible with echogenic material within the lumen throughout the thigh with absent colorflow and Doppler signals. A single posterior tibial vein from the mid to proximal calf is non-compressible with echogenic material filling the lumen and colorflow and Doppler signals are absent. A single peroneal vein is non-compressible throughout its entire length with echogenic material filling the lumen and colorflow and Doppler signals are absent. There is a varicose vein noted in the medial calf with non-compressibility, echogenic material within the lumen and colorflow and Doppler signals are absent. The soleal vein is non-compressible with echogenic material within the lumen with absent colorflow and Doppler signals. There is normal compressibility with colorflow and Doppler signals present in the remaining visualized veins. LEFT: The soleal vein is non-compressible with echogenic material within the lumen with absent colorflow and Doppler signals. There is normal compressibility with colorflow and Doppler signals present in the remaining visualized veins. PRELIMINARY FINDINGS 1. Total superficial venous thrombosis of the right greater saphenous vein above the knee. 2. Total deep venous thrombosis of a single right posterior tibial vein from the mid to proximal calf. 3. Total deep venous thrombosis of a single peroneal vein throughout its length. 4. Total venous thrombosis of the soleal vein, bilaterally. 5. Obstructed varicose vein of the right medial calf. Results given to Derrek Valenzuela MD @ 1:31 am on 06/14/18. PHYSICIAN INTERPRETATION Venous examination of the both lower extremities demonstrated deep venous thrombosis of a single right posterior tibial vein from the mid to proximal calf, of a single peroneal vein throughout its length and venous thrombosis of the soleal vein, bilaterally. A superficial venous thrombosis of the right greater saphenous vein above the knee. Obstructed varicose vein of the right medial calf. Signed 06/14/2018 08:38 AM Lawson Garnica MD, RPVI Performing Organization Address City/State/Zipcode Phone Number [facility] [address] [place] [address] duplex arterial lower extremity (06/14/2018 12:11 AM CDT) Specimen Narrative Performed At [facility] Vascular Ultrasound Laboratory Lower Extremity Arterial Duplex Report [id number] [address] Pat.Name:DIANNE JUÁREZ.ID:[id number] .Date: 06/13/2018 Refer.MD:PHYSICIAN, EMERGENCY, Exam Time: 10:53:00 PM Study Type:LE Arterial DOBAge:1935,83Y Sex: FEMALE Sonogrphr: Sharon Iqbal RVTPat. Stat.:[address]: , CPT - 4: 15740 Echo Event ID:[id number] Order ID:[id number] Reason for Study:Worsening bilateral leg pain X 2 weeks. Bilateral pedal blisters, swelling and weakness. History of DM, CKD, HTN, Afib s/p DAMIAN closure. Procedures:Ankle/brachial pressures, Colorflow, Grayscale/2D, Pulsed wave Doppler Race:C SUMMARY: DUPLEX SCAN OBSERVATIONS: RIGHT: The common femoral artery, femoral, profunda femoris, popliteal, posterior tibial, peroneal and anterior tibial artery is visualized with calcified arterial berumen, colorflow and biphasic arterial Doppler signals present. LEFT: The common femoral artery, femoral, profunda femoris, popliteal, posterior tibial, peroneal and anterior tibial artery is visualized with calcified arterial berumen, colorflow and biphasic arterial Doppler signals present. ANKLE/BRACHIAL INDEX: RIGHTLEFT Brachial Artery Pressure * poSj835 mmHg DP141 [id number] PT154 flRm688 mmHg IVETTE DP1.051.01 IVETTE PT1.151.19 TOE/BRACHIAL INDEX: Great Toe71 mmHg41 mmHg TBI0.53 0.31 PRELIMINARY FINDINGS: 1. Patency of the visualized arteries. 2. 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 3. The ankle/brachial indices are within normal limits, bilaterally. 4. The right toe/brachial index falls into the mild category and the left falls into the moderate-severe category. Results given to Derrek Valenzuela @ 1:31 am on 06/14/18. PHYSICIAN INTERPRETATION: Bilateral lower extremity arterial exam demonstrates no evidence of significant arterial occlusive disease. The IVETTE's are within normal range. The right toe/brachial index falls into the mild category and the left falls into the moderate-severe category. 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 MEASUREMENTS: DOPPLER Right FORGING PRESS LEVER TENDER prox FORGING PRESS LEVER TENDER prox PSV75.7 cm/s Right Profunda Profunda PSV60.3 cm/s Right SFA Dist SFA Dist PSV90.3 cm/s Right SFA Mid SFA Mid QYL630 cm/s Right SFA Prox SFA Prox PSV 111 cm/s Right Pop Dist Pop Dist PSV 102 cm/s Right Pop Prox Pop Prox PSV87.1 cm/s Right LIME BOILER Dist LIME BOILER Dist PSV 132 cm/s Right LIME BOILER Mid LIME BOILER Mid XJF386 cm/s Right LIME BOILER Prox LIME BOILER Prox PSV 118 cm/sPTA Prox PSV 118 cm/s Right Peroneal Dist Peroneal Dist P43.9 cm/s Right Peroneal Mid Peroneal Mid PS43.5 cm/s Right Peroneal Prox Peroneal Prox P42.7 cm/s Right GISELA Dist GISELA Dist PSV86.6 cm/s Right GISELA Mid GISELA Mid PSV 56 cm/s Left FORGING PRESS LEVER TENDER Dist FORGING PRESS LEVER TENDER Dist PSV91.8 cm/s Left SFA Dist SFA Dist PSV85.5 cm/s Left SFA Mid SFA Mid PSV 86.5 cm/s Left SFA Prox SFA Prox PSV94.4 cm/s Left Pop Dist Pop Dist PSV56.6 cm/s Left Pop Prox Pop Prox PSV46.9 cm/sPop Prox PSV46 cm/s Left LIME BOILER Dist LIME BOILER Dist PSV 128 cm/s Left LIME BOILER Mid LIME BOILER Mid XAE962 cm/s Left LIME BOILER Prox LIME BOILER Prox PSV92.7 cm/s Left Peroneal Dist Peroneal Dist P 104 cm/s Left Peroneal Mid Peroneal Mid PS 158 cm/s Left GISELA Dist GISELA Dist PSV32.5 cm/s Left GISELA Mid GISELA Mid PSV 23.7 cm/s Left GSIELA Prox GISELA Prox PSV30.8 cm/sATA Prox PSV30 cm/s Right FORGING PRESS LEVER TENDER Dist FORGING PRESS LEVER TENDER Dist PSV75 cm/s Left Profunda Profunda PSV69 cm/s Right LIME BOILER Distal LIME BOILER Distal PSV 132 cm/s Left LIME BOILER Distal LIME BOILER Distal PSV 127 cm/s Right GISELA Prox GISELA Prox PSV61 cm/s Right GISELA Distal GISELA Distal PSV86 cm/s Left GISELA Distal GISELA Distal PSV32 cm/s Signed 06/14/2018 08:43 AM Lawson Garnica MD, RPVI Procedure Note Interface, Radiology Results In - 06/14/2018 8:44 AM CDT Vascular Ultrasound Laboratory Lower Extremity Arterial Duplex Report [address] [place] [address] Pat.Name: DIANNE JUÁREZ Pat.ID: [id number] .Date: 06/13/2018 Refer.MD: PHYSICIAN, EMERGENCY, MD Exam Time: 10:53:00 PM Study Type:LE Arterial Age: 2 1935,83Y Sex: FEMALE Sonogrphr: Sharon Iqbal RVT Pat. Stat.:Outpatient Room: [address] Vol: RF, CPT - 4: 93560 Echo Event ID:[id number] Order ID: [id number] Reason for Study:Worsening bilateral leg pain X 2 weeks. Bilateral pedal blisters, swelling and weakness. History of DM, CKD, HTN, Afib s/p DAMIAN closure. Procedures:Ankle/brachial pressures, Colorflow, Grayscale/2D, Pulsed wave Doppler Race: C SUMMARY: DUPLEX SCAN OBSERVATIONS: RIGHT: The common femoral artery, femoral, profunda femoris, popliteal, posterior tibial, peroneal and anterior tibial artery is visualized with calcified arterial berumen, colorflow and biphasic arterial Doppler signals present. LEFT: The common femoral artery, femoral, profunda femoris, popliteal, posterior tibial, peroneal and anterior tibial artery is visualized with calcified arterial berumen, colorflow and biphasic arterial Doppler signals present. ANKLE/BRACHIAL INDEX: RIGHT LEFT Brachial Artery Pressure * mmHg 134 mmHg DP 141 mmHg 135mmHg PT 154 mmHg 159 mmHg IVETTE DP 1.05 1.01 IVETTE PT 1.15 1.19 TOE/BRACHIAL INDEX: Great Toe 71 mmHg 41 mmHg TBI 0.53 0.31 PRELIMINARY FINDINGS: 1. Patency of the visualized arteries. 2. 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 3. The ankle/brachial indices are within normal limits, bilaterally. 4. The right toe/brachial index falls into the mild category and the left falls into the moderate-severe category. Results given to Derrek Valenzuela @ 1:31 am on 06/14/18. PHYSICIAN INTERPRETATION: Bilateral lower extremity arterial exam demonstrates no evidence of significant arterial occlusive disease. The IVETTE's are within normal range. The right toe/brachial index falls into the mild category and the left falls into the moderate-severe category. 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 MEASUREMENTS: DOPPLER Right FORGING PRESS LEVER TENDER prox FORGING PRESS LEVER TENDER prox PSV 75.7 cm/s Right Profunda Profunda PSV 60.3 cm/s Right SFA Dist SFA Dist PSV 90.3 cm/s Right SFA Mid SFA Mid PSV 118 cm/s Right SFA Prox SFA Prox PSV 111 cm/s Right Pop Dist Pop Dist PSV 102 cm/s Right Pop Prox Pop Prox PSV 87.1 cm/s Right LIME BOILER Dist LIME BOILER Dist PSV 132 cm/s Right LIME BOILER Mid LIME BOILER Mid PSV 128 cm/s Right LIME BOILER Prox LIME BOILER Prox PSV 118 cm/s LIME BOILER Prox PSV 118 cm/s Right Peroneal Dist Peroneal Dist P 43.9 cm/s Right Peroneal Mid Peroneal Mid PS 43.5 cm/s Right Peroneal Prox Peroneal Prox P 42.7 cm/s Right GISELA Dist GISELA Dist PSV 86.6 cm/s Right GISELA Mid GISELA Mid PSV 56 cm/s Left FORGING PRESS LEVER TENDER Dist FORGING PRESS LEVER TENDER Dist PSV 91.8 cm/s Left SFA Dist SFA Dist PSV 85.5 cm/s Left SFA Mid SFA Mid PSV 86.5 cm/s Left SFA Prox SFA Prox PSV 94.4 cm/s Left Pop Dist Pop Dist PSV 56.6 cm/s Left Pop Prox Pop Prox PSV 46.9 cm/s Pop Prox PSV 46 cm/s Left LIME BOILER Dist LIME BOILER Dist PSV 128 cm/s Left LIME BOILER Mid LIME BOILER Mid PSV 135 cm/s Left LIME BOILER Prox LIME BOILER Prox PSV 92.7 cm/s Left Peroneal Dist Peroneal Dist P 104 cm/s Left Peroneal Mid Peroneal Mid PS 158 cm/s Left GISELA Dist GISELA Dist PSV 32.5 cm/s Left GISELA Mid GISELA Mid PSV 23.7 cm/s Left GISELA Prox GISELA Prox PSV 30.8 cm/s GISELA Prox PSV 30 cm/s Right FORGING PRESS LEVER TENDER Dist FORGING PRESS LEVER TENDER Dist PSV 75 cm/s Left Profunda Profunda PSV 69 cm/s Right LIME BOILER Distal LIME BOILER Distal PSV 132 cm/s Left LIME BOILER Distal LIME BOILER Distal PSV 127 cm/s Right GISELA Prox GISELA Prox PSV 61 cm/s Right GISELA Distal GISELA Distal PSV 86 cm/s Left GISELA Distal GISELA Distal PSV 32 cm/s Signed 06/14/2018 08:43 AM Lawson Garnica MD, RPVI Performing Organization Address City/State/Zipcode Phone Number [facility] [address] [place] [address] XR Foot 3+ Vw Left (06/14/2018 12:07 AM CDT) Specimen Narrative Performed At Examination:XR FOOT 3VW LEFT [facility] Clinical History: Foot painchronicetiol unknowninitial exam Comparison: None. Findings: 3 views of the left foot are obtained. No acute fracture or dislocation is seen. The joint spaces are within normal limits. Soft tissues are unremarkable. Diffuse demineralization is noted. Inferior calcaneal spurring is noted. Left lower leg subcutaneous calcifications are noted. No cortical bone loss is seen. IMPRESSION: 1. Inferior calcaneal spurring but no acute bony amount identified in the left foot. [facility]-[id number] Procedure Note Interface, Radiology Results Incoming - 06/14/2018 12:19 AM CDT Examination: XR FOOT 3 VW LEFT Clinical History: Foot pain chronic etiol unknown initial exam Comparison: None. Findings: 3 views of the left foot are obtained. No acute fracture or dislocation is seen. The joint spaces are within normal limits. Soft tissues are unremarkable. Diffuse demineralization is noted. Inferior calcaneal spurring is noted. Left lower leg subcutaneous calcifications are noted. No cortical bone loss is seen. IMPRESSION: 1. Inferior calcaneal spurring but no acute bony amount identified in the left foot. [facility]-[id number] Performing Organization Address [facility] Phone Number [facility] [address] [place] [address] XR Chest 1 Vw Portable (06/14/2018 12:07 AM CDT)Only the most recent of2 resultswithin the time period is included. Specimen Narrative Performed At EXAMINATION:XR CHEST 1 VW PORTABLE [facility] CLINICAL HISTORY: dyspnea COMPARISON:12/24/2017 IMPRESSION: No radiographic evidence for acute cardiopulmonary process. Cardiomediastinal silhouette is magnified on this AP projection and at the upper limits of normal/mildly enlarged. Aorta is tortuous. No focal or confluent airspace consolidation is seen on this single AP plane to suggest acute pneumonia. No sizable pleural effusion. No pneumothorax identified. No acute osseous abnormalities are visualized. [facility]-[id number] Procedure Note Hm Interface, Radiology Results Incoming - 06/14/2018 12:12 AM CDT EXAMINATION: XR CHEST 1 VW PORTABLE CLINICAL HISTORY: dyspnea COMPARISON: 12/24/2017 IMPRESSION: No radiographic evidence for acute cardiopulmonary process. Cardiomediastinal silhouette is magnified on this AP projection and at the upper limits of normal/mildly enlarged. Aorta is tortuous. No focal or confluent airspace consolidation is seen on this single AP plane to suggest acute pneumonia. No sizable pleural effusion. No pneumothorax identified. No acute osseous abnormalities are visualized. [facility]-[id number] Performing Organization Address [facility] Phone Number [facility] [address] [place] [address] ECG ED Preliminary Interpretation - Not an Order (06/13/2018 9:46 PM CDT) Narrative Performed At Derrek Valenzuela MD 06/15/20187:15 PM ECG ED Preliminary Interpretation - Not an Order Performed by: Derrek Valenzuela MD Authorized by: Derrek Valenzuela MD ECG reviewed by ED Physician in the absence of a appliance mechanic: yes Interpretation: Interpretation: abnormal Rate: ECG rate:61 ECG rate assessment: normal Rhythm: Rhythm: atrial fibrillation Ectopy: Ectopy: none QRS: QRS axis:Left QRS intervals:Normal Conduction: Conduction: normal ST segments: ST segments:Normal T waves: T waves: normal ECG 12 lead (06/13/2018 8:19 PM CDT) Pathologist [facility] Ventricular rate [address] [facility] MUSE Atrial rate [address] [facility] MUSE QRSD interval [address] [facility] MUSE QT interval [address] [facility] MUSE QTC interval [address] [facility] MUSE QRS axis 1 -[address] [facility] MUSE T wave axis [address] [facility] MUSE EKG impression Undetermined rhythm-Cannot rule out Anterior infarct (cited on or before 27-NOV-2013)-Abnormal ECG-In automated comparison with ECG of 2013 16:16,-Current undetermined rhythm precludes rhythm com [facility] MUSE parison, needs review- Specimen Narrative Performed At Performing Organization Address City/State/Zipcode Phone Number [facility] [address] [place] [address] Partial thromboplastin time, activated (06/13/2018 8:14 PM CDT)Only the most recent of2 resultswithin the time period is included. [facility] PTT 25.4 23.0 - 36.0 [facility] Comment: [facility] PTT therapeutic range for unfractionated heparin is 61.0-112.0 seconds which corresponds to Anti-Xa 0.3-0.7 U/ml. Specimen Blood Performing Organization Address City/State/Zipcode Phone Number [facility] DEPARTMENT OF PATHOLOGY AND [address] [place] [address] GEN[address] MED[address] [address] Prothrombin time with INR (06/13/2018 8:14 PM CDT)Only the most recent of2 resultswithin the time period is included. [facility] Prothrombin time 13.5 11.5 - 14.5 [facility] INR 1.1 [facility] Comment: [facility] International Normalized Ratio (INR) is a therapeutic HOSPITAL monitoring tool for patients who are stable on oral anticoagulant therapy. An INR of 2.0-3.0 is suggested for deep vein thrombosis/pulmonary embolism. Specimen Blood Performing Organization Address City/State/Zipcode Phone Number [facility] DEPARTMENT OF PATHOLOGY AND [address] [place] [address] [address] Comprehensive metabolic panel (06/13/2018 8:14 PM CDT) Sodium 139 135 - 148 [facility] mEq/L [facility] Potassium 5.0 3.5 - 5.0 [facility] mEq/L [facility] Chloride 103 98 - 112 mEq/L [facility] CO2 23 (L) 24 - 31 mEq/L [facility] Anion gap 13@ANIO 7 - 15 mEq/L [facility] BUN 40 (H) 8 - 23 mg/dL [facility] Creatinine 1.02 (H) 0.50 - 0.90 [facility] mg/dL [facility] Glucose 294 (H) 65 - 99 mg/dL [facility] Calcium 8.9 8.8 - 10.2 [facility] mg/dL [facility] Protein 6.2 (L) 6.3 - 8.3 g/dL [facility] Comment: HOSPITAL Aguilar 4.6-7.0 g/dL 1 week 4.4-7.6 g/dL 7 months-1year5.1-7.3 g/dL 1-2 years5.6-7.5 g/dL >3 years6.0-8.0 g/dL 18-150 6.3-8.3 g/dL Albumin 3.3 (L) 3.5 - 5.0 g/dL [facility] A/G ratio 1.1 0.7 - 3.8 [facility] Alkaline phosphatase 114 (H) 35 - 104 U/L [facility] AST 20 10 - 35 U/L [facility] ALT 28 5 - 50 U/L [facility] Total bilirubin 0.4 0.0 - 1.2 [facility] mg/dL HOSPITAL Specimen Plasma specimen Performing Organization Address City/State/Zipcode Phone Number [facility] DEPARTMENT OF PATHOLOGY AND [address] [place] [address] [address] Echocardiogram 2d limited (12/25/2017 9:15 AM CDT) Specimen Narrative Performed At [facility] Echocardiography Report [address] [facility], [place] [address] Pat.Name:DIANNE JUÁREZ.ID:[id number] .Date: 12/25/2017Refer.MD:AYAAN PARK MD Exam Time: 8:48:00 AMStudy Type:Routine Echo Height:62inWeight: 220lb BSA: 1.99 m2 DOBAge:1935,82Y Sex: FEMALEBP:105/73 HR:74 bpmSonogrphr: Radha Bernstein, RDCS, RVT Pat. Stat.:Inpatient Room:N98M-52X Study Status:Final Echo Event ID:[id number] Order ID:[id number] Reason for Study:Effusion History / Clinical:Diabetes, Hyperlipidemia, [...] RAPof 10 mmHg. MEASUREMENTS: 2D Parasternal Long [place] Ao An2 cmLVPWd1.7 cm LVOT 2 cmLA Ds5.4 cm LVIDd4.2 cmIndex2.1 cm/m Ao Rtd 3.9 cm Index1.9 cm/m LVIDs2.3 cmLV Uyxl795.3 g(87-129) LV%fs 45 % LVM Wbayn003.8 g/m2 IVSd 1.5 cmRWT0.8 DOPPLER LVOT Stroke Vol LVOT 2 cmLVOT CO4 l/min LVOT TVI18.7 cmLVOT CI2 l/m/m2 LVOT Tm286 hcziDN73 bpm LVOT SV 58.6 ml Signed 12/25/2017 02:35 PM Meeta Jaeger M.D. Procedure Note Interface, Radiology Results In - 12/25/2017 2:35 PM CDT Echocardiography Report [address] [place] [address] Pat.Name: DIANNE JUÁREZ Letty.ID: [id number] .Date: 12/25/2017 Refer.MD: AYAAN PARK MD Exam Time: 8:48:00 AM Study Type:Routine Echo Height: 62in Weight: 220lb BSA: 1.99 m2 Age: 2 1935,82Y Sex: FEMALE BP: 105/73 HR: 74 bpm Sonogrphr: Radha Bernstein RDCS, RVT Pat. Stat.:Inpatient Room: [address] Study Status:Final Echo Event ID:[id number] Order ID: [id number] Reason for Study:Effusion History / Clinical:Diabetes, Hyperlipidemia, [...] of 10 mmHg. MEASUREMENTS: 2D Parasternal Long [place] Ao An 2 cm LVPWd 1.7 cm [...] M.D. Performing Organization Address City/State/Zipcode Phone Number [facility] [address] [place] [address] Magnesium level (12/25/2017 5:41 AM CDT)Only the most recent of5 resultswithin the time period is included. Magnesium 2.0 1.6 - 2.4 mg/dL [facility] DEPARTMENT OF PATHOLOGY AND GENOMIC MEDICINE Specimen Plasma specimen Performing Organization Address [facility] Phone Number [facility] DEPARTMENT OF PATHOLOGY AND [address] [place] [address] MEDICINE B natriuretic peptide (12/24/2017 6:23 AM CDT)Only the most recent of4 resultswithin the time period is included. BNP 151 (H) 0 - 100 pg/mL [facility] DEPARTMENT OF PATHOLOGY AND GENOMIC MEDICINE Specimen Blood Performing Organization Address [facility] Phone Number [facility] DEPARTMENT OF PATHOLOGY AND [address] [place] [address] Echocardiogram complete w contrast and 3D if needed (12/23/2017 4:08 PM CDT) Specimen Narrative Performed At [facility] Echocardiography Report [address] [place] [address] Pat.Name:DIANNE JÁUREZ Pat.ID:[id number] .Date: 12/23/2017Refer.MD:AYAAN PARK MD Exam Time: 3:24:00 PMStudy Type:Routine Echo Height:62inBSA: 2.01 m2 DOBAge:1935,82Y Sex: FEMALE BP:114/67HR: 86 bpm Sonogrphr: Lawrence Phelps [facility] Pat. Stat.:Inpatient Room:[address] Study Status:Final Echo Event ID:[id number] Order ID:[id number] Reason for Study:Effusion History / Clinical:Diabetes, Hyperlipidemia, [...] meanRAP of5-10 mmHg. MEASUREMENTS: 2D Parasternal Long [place] LVIDd4.3 cmIndex2.1 cm/m LA Ds5.4 cm LVIDs2.8 cmAo Rtd 3.7 cm Index1.8 cm/m LV%fs 35.4 % LV Idva379.7 g(87-129) IVSd 1 cmLVM Index 88.9 g/m2 LVPWd1.3 cmRWT0.6 LA Sng Plane LA Area 30.1 cm2(8.8-23.4) LA Vol 119.1 ml Index59.3 ml/m LA LngAx 6.3 cm Signed 12/23/2017 05:14 PM Nick Umana M.D. Procedure Note Interface, Radiology Results In - 12/23/2017 5:16 PM CDT Echocardiography Report [address] [address], [place] [address] [facility].Name: JUÁREZ DIANNE Alejandro Saenz.ID: [id number] .Date: 12/23/2017 Refer.MD: AYAAN PARK MD Exam Time: 3:24:00 PM Study Type:Routine Echo Height: 62in BSA: 2.01 m2 Age: 2 1935,82Y Sex: FEMALE BP: 114/67 HR: 86 bpm Sonogrphr: SHAKEEL Easley Pat. Stat.:Inpatient Room: [address] Study Status:Final Echo Event ID:[id number] Order ID: [id number] Reason for Study:Effusion History / Clinical:Diabetes, Hyperlipidemia, [...] of 5-10 mmHg. MEASUREMENTS: 2D Parasternal Long [place] LVIDd 4.3 cm Index 2.1 cm/m LA [...] PM Nick Umana M.D. Performing Organization Address City/[facility] Centercode Phone Number [facility] [address] [place] [address] Activated clotting time (12/21/2017 10:44 AM CDT)Only the most recent of3 resultswithin the time period is included. Pathologist [facility] Activated clotting 113 96 - [address] [facility] DEPARTMENT OF time Comment: PATHOLOGY AND Meter ID: [id number] GENOMIC MEDICINE Public Health Program Manager: Gregorio Ennis Specimen Performing Organization Address City/[facility] Phone Number [facility] DEPARTMENT OF PATHOLOGY AND [address] [place] [address] GENOMIC MEDICINE Prepare RBC (12/21/2017 8:00 AM CDT) Product name Red Blood Cells [facility] DEPARTMENT OF -1, Leukored PATHOLOGY AND GENOMIC MEDICINE Unit number [id number] [facility] DEPARTMENT OF PATHOLOGY AND GENOMIC MEDICINE Product code [id number] [facility] DEPARTMENT OF PATHOLOGY AND GENOMIC MEDICINE Dispense status Returned to not [facility] DEPARTMENT OF transfused PATHOLOGY AND GENOMIC MEDICINE Blood expiration [id number] [facility] DEPARTMENT OF date PATHOLOGY AND GENOMIC MEDICINE Blood type code [address] [facility] DEPARTMENT OF PATHOLOGY AND GENOMIC MEDICINE Blood type B POSITIVE [facility] DEPARTMENT OF PATHOLOGY AND GENOMIC MEDICINE Product name Red Blood Cells [facility] DEPARTMENT OF -1, Leukored PATHOLOGY AND GENOMIC MEDICINE Unit number [id number] [facility] DEPARTMENT OF PATHOLOGY AND GENOMIC MEDICINE Product code [id number] [facility] DEPARTMENT OF PATHOLOGY AND GENOMIC MEDICINE Dispense status Returned to not [facility] DEPARTMENT OF transfused PATHOLOGY AND GENOMIC MEDICINE Blood expiration [id number] [facility] DEPARTMENT OF date PATHOLOGY AND GENOMIC MEDICINE Blood type code [address] [facility] DEPARTMENT OF PATHOLOGY AND GENOMIC MEDICINE Blood type B POSITIVE [facility] DEPARTMENT OF PATHOLOGY AND GENOMIC MEDICINE Product name Red Blood Cells [facility] DEPARTMENT OF -1, Leukored PATHOLOGY AND GENOMIC MEDICINE Unit number [id number] [facility] DEPARTMENT OF PATHOLOGY AND GENOMIC MEDICINE Product code [id number] [facility] DEPARTMENT OF PATHOLOGY AND GENOMIC MEDICINE Dispense status Returned to BB not [facility] DEPARTMENT OF transfused PATHOLOGY AND GENOMIC MEDICINE Blood expiration [id number] [facility] DEPARTMENT OF date PATHOLOGY AND GENOMIC MEDICINE Blood type code [address] [facility] DEPARTMENT OF PATHOLOGY AND GENOMIC MEDICINE Blood type B POSITIVE [facility] DEPARTMENT OF PATHOLOGY AND GENOMIC MEDICINE Product name Red Blood Cells [facility] DEPARTMENT OF -1, Leukored PATHOLOGY AND GENOMIC MEDICINE Unit number [id number] [facility] DEPARTMENT OF PATHOLOGY AND GENOMIC MEDICINE Product code [id number] [facility] DEPARTMENT OF PATHOLOGY AND GENOMIC MEDICINE Dispense status Returned to BB not [facility] DEPARTMENT OF transfused PATHOLOGY AND GENOMIC MEDICINE Blood expiration [id number] [facility] DEPARTMENT OF date PATHOLOGY AND GENOMIC MEDICINE Blood type code [address] [facility] DEPARTMENT OF PATHOLOGY AND GENOMIC MEDICINE Blood type B POSITIVE [facility] DEPARTMENT OF PATHOLOGY AND GENOMIC MEDICINE Specimen Performing Organization Address City/[facility] Phone Number [facility] DEPARTMENT OF PATHOLOGY AND [address] [place] [address] GENOMIC MEDICINE Type and screen (12/21/2017 8:00 AM CDT) ABO grouping B [facility] DEPARTMENT OF PATHOLOGY AND GENOMIC MEDICINE Rh type POS [facility] DEPARTMENT OF PATHOLOGY AND GENOMIC MEDICINE Antibody screen (gel) NEG [facility] DEPARTMENT OF PATHOLOGY AND GENOMIC MEDICINE Specimen Performing Organization Address City/[facility] Phone Number [facility] DEPARTMENT OF PATHOLOGY AND [address] [place] [address] GENOMIC MEDICINE Cv cta pre afib pulmonary vein mapping (11/07/2017 3:34 PM CDT) Specimen Narrative Performed At [facility] Nuclear Cardiology and Cardiac CT [address] [place] [address] CTA Chest Non-Coronary with Contrast Report Pat.Name:DIANNE JUÁREZ Pat.ID:[id number] St.Date: 11/07/2017 Refer.MD:AYAAN PARK MD Exam Time: 2:58:00 PM Study Type:CTA Chest Non-Coronary W Contrast Height:61inWeight: 214lb BSA: 1.95 m2 DOBAge:1935,82Y Sex: FEMALEBP:132/60 HR:66 bpm Nuclear Tech:ALESHIA Pulido(Tao)(CT) CPT - 4: CTA Chest non coronary 90973 Nuclear Event ID:[id number] Order ID:[id number] Reason for Study:Pre A-Fib Ablation for Pulmonary Vein Mapping Procedures:CTA Chest Non- Coronary Race:C SUMMARY: Technique: IV contrast was administered and sequential 0.[address] cuts were obtained through the chest using the[facility] scanner. Post-processing and 3D reconstruction were done using the [employer] workstation. Interactive image viewing and volumetric display [...] Cardiovascular CTA Protocol and interpreted by a Pickle Processor.Should a more comprehensive assessment of non-cardiovascular findings be desired, please consult a radiologist.These images are available in the [facility] [employer] PACS system. Signed 11/07/2017 06:24 PM Prasad Lutz MD Procedure Note Interface, Radiology Results In - 11/07/2017 6:25 PM CDT Nuclear Cardiology and Cardiac CT [address] [place] [address] CTA Chest Non-Coronary with Contrast Report Pat.Name: DIANNE JUÁREZ Letty.ID: [id number] .Date: 11/07/2017 Refer.MD: AYAAN PARK MD Exam Time: 2:58:00 PM Study Type:CTA Chest Non-Coronary W Contrast Height: 61in Weight: 214lb BSA: 1.95 m2 Age: 2 1935,82Y Sex: FEMALE BP: 132/60 HR: 66 bpm Nuclear Tech:ALESHIA Pulido(Tao)(CT) CPT - 4: CTA Chest non coronary 91460 Nuclear Event ID:[id number] Order ID: [id number] Reason for Study:Pre A-Fib Ablation for Pulmonary Vein Mapping Procedures:CTA Chest Non- Coronary Race: C SUMMARY: Technique: IV contrast was administered and sequential 0.[address] cuts were obtained through the chest using the [employer] Force CT scanner. Post-processing and 3D reconstruction were done using the [employer] workstation. Interactive image viewing and volumetric display [...] Cardiovascular CTA Protocol and interpreted by a Pickle Processor. Should a more comprehensive assessment of non-cardiovascular findings be desired, please consult a radiologist. These images are available in the [facility] [employer] PACS system. Signed 11/07/2017 06:24 PM Prasad Lutz MD Performing Organization Address City/State/Zipcode Phone Number [facility] [address] [place] [address] Echocardiogram transesophageal (11/07/2017 3:16 PM CDT) Specimen Narrative Performed At [facility] Transesophageal Echo Report [id number], [place], [place] [address] [facility].Name:DIANNE JUÁREZ.ID:[id number] .Date: 11/07/2017 Refer.MD:AYAAN PARK MD Exam Time: 12:48:00 PM Study Type:RADHA Height:60inWeight: 214lb BSA: 1.92 m2 DOBAge:1935,82Y Sex: FEMALEBP:145/83 HR:64 bpmSonogrphr: Jevon Thakur MD [facility]. Stat.:OutpatientStudy Status:Final Echo Event ID:[id number] Order ID:[id number] Reason for Study:Atrial fibrillation History / Clinical:Diabetes, Hyperlipidemia, Hypertension, Arrhythmias, Atrial Fibrillation Procedures:Transesophageal Echo with Colorflow Doppler Race:C SUMMARY: No thrombus or mass is visualized in the LA or LA appendage. FINDINGS: RADHA:The attending appliance mechanic performed the RADHA procedure and waspresent for [...] SedationASA Class: 3 Physician: Akash Akins MD Auto Body Painter: Jevon Thakur MD Pre TEEBP HR Post RADHA BP HR 145/83 14292/72 62 Meds:Viscous xylocaine, Cetacaine spray to oropharynx, Versed 2 mg IV, Fentanyl 50 mcg IV Complications: None Condition: Stable MEASUREMENTS: 2D Parasternal [place] LVOT 1.8 cmAo Rtd 3.9 cm Ao An1.9 cm Signed 11/07/2017 05:15 PM Akash Akins MD Procedure Note Interface, Radiology Results In - 11/07/2017 5:15 PM CDT Transesophageal Echo Report [id number], [place] [address] Pat.Name: DIANNE JUÁREZ [facility].ID: [id number] .Date: 11/07/2017 Refer.MD: AYAAN PARK MD Exam Time: 12:48:00 PM Study Type:RADHA Height: 60in Weight: 214lb BSA: 1.92 m2 Age: 2 1935,82Y Sex: FEMALE BP: 145/83 HR: 64 bpm Sonogrphr: Jevon Thakur MD Pat. Stat.:Outpatient Study Status:Final Echo Event ID:[id number] Order ID: [id number] Reason for Study:Atrial fibrillation History / Clinical:Diabetes, Hyperlipidemia, Hypertension, Arrhythmias, Atrial Fibrillation Procedures:Transesophageal Echo with Colorflow Doppler Race: C SUMMARY: No thrombus or mass is visualized in the LA or LA appendage. FINDINGS: RADHA: The attending appliance mechanic performed the RADHA procedure and was present [...] ASA Class: 3 Physician: Akash Akins MD Auto Body Painter: Jevon Thakur MD Pre RADHA BP HR Post RAHDA BP HR 145/83 64 144/72 62 Meds: Viscous xylocaine, Cetacaine spray to oropharynx, Versed 2 mg IV, Fentanyl 50 mcg IV Complications: None Condition: Stable MEASUREMENTS: 2D Parasternal [place] LVOT 1.8 cm Ao Rtd 3.9 cm Ao An 1.9 cm Signed 11/07/2017 05:15 PM Akash Akins MD Performing Organization Address City/State/Zipcode Phone Number [facility] [address] [place] [address] after 07/18/2017 Insurance Payer Benefit Plan / Subscriber ID Effective Dates Phone Address Type Group MEDICARE MEDICARE PART A xxxxxxxxxxx 2000-Present [place], [place] Medicare AND B Advance Directives Patient has advance care planning documents on file. For more information, please contact:[place] [id number] [place] [address]
--- OUTSIDE RECORDS SUMMARY | 2018-07-19 09:32 | XMS REPORT | Continuity of Care Document ---
:1935 Author Organization Interface Problems Problem Status Onset Classification Date Comments Source Date Reported AFIB Active 01/06/[address] Diabetes Active 03/24/19 Finding 03/24/[address],[facility] Anemia Active [...] [place] Hypertension Active 03/24/19 Finding 03/24/[address],[facility] Cellulitis, leg Resolved 01/26/20 Finding 03/24/[address] [facility] [place] Dehydration Active 11/27/19 Finding 03/24/[address] [facility] [place] UTI Active 05/15/19 Finding 03/24/[address] [facility] [facility] Vomiting Resolved 05/15/19 Finding 03/24/[address] [facility] [facility] [place] DX:ABDOMINAL Active 06/26/19 [facility] STRESS DYSPNEA [address] [place] [address] Atrial Resolved Problem 06/29/2014 [facility] fibrillation [facility] High cholesterol Resolved Problem 06/29/2014 [facility] Thyroid<sup>1</starr Resolved Problem 06/29/2014 [facility] Urolithiasis Active Finding 03/24/[address] [facility] Urosepsis Active Finding 03/24/[address] [facility] OTHER FORMS OF Active [facility] Medications Medication Details Route Status Patient Ordering Order Source Instructions Provider Date Lisinopril DAILY Active Katte [facility] [place] Furosemide DAILY Active [facility] [place] Darifenacin AT BEDTIME Active [facility] [place] rivaroxaban 20 20 mg=1 Active [facility] MG Oral Tablet tab, PO, 015 Medical [Xarelto] QPM, 0 Center Refill(s) glimepiride 1 mg 1 mg=1 Active [place] oral tablet tab, PO, 015 Medical BID, # 30 Center tab, 0 Refill(s) lisinopril 2.5 2.5 mg=1 Active [facility] mg oral tablet tab, PO, 015 Medical Daily, # Center 30 tab, 0 Refill(s) levothyroxine 150 Active [facility] 150 mcg (0.15 microgram= 015 Medical mg) oral tablet 1 tab, PO, Center Daily, # 30 tab, 0 Refill(s) simvastatin 10 10 mg=1 Active [facility] mg oral tablet tab, PO, 015 Medical Bedtime, # Center 30 tab, 0 Refill(s) solifenacin 10 mg=1 Active [facility] succinate 10 MG tab, PO, 015 Medical Oral Tablet Daily, # Center [VESICARE] 30 tab, 0 Refill(s) metoprolol 25 mg=1 Active [facility] tartrate 25 mg tab, PO, 015 Medical oral tablet BID, # 180 Center tab, 0 Refill(s) Aspirin 81 MG 81 mg=1 Active [facility] Enteric Coated tab, PO, 015 Medical Tablet Daily, # 0 Center tab, 0 Refill(s) Metoprolol TWICE Active [facility] Tartrate DAILY [facility] [place] Rivaroxaban DAILY Active [facility] [place] Clindamycin Hcl THREE Active [facility] TIMES A 012 [facility] DAY [place] Glimepiride TWICE Active [facility] DAILY 012 [facility] [place] Levothyroxine DAILY Active [facility] Sodium 012 [facility] [place] Lisinopril DAILY [facility] [place] Simvastatin AT BEDTIME Active [facility] [place] Sulfamethoxazole TWICE Active [facility]Trimethoprim DAILY [facility]12 [facility] [place] Allergies, Adverse Reactions, Alerts Substance Category Reaction Severity Reaction Status Date Comments Source type Reported Sulfa Rash Allergy to Active [facility] (Sulfonamid Substance 7 [facility] [place] Antibiotics ) tape Rash Mild Allergy to Active [facility] Substance 7 [facility] [place] Adhesives Unknown Allergy to Active [facility] Substance 7 [facility] [place] Adhesive Assertion Drug Active [facility] sulfa drugs Assertion Drug Active [facility] [place], [place] Immunizations Immunization Date Given Site Status Last Updated Comments Source Results Order Name Results Value Reference Date Interpretation Comments Source Range Laboratory Hemoglobin 9.7 g/dL 12.0 - 03/24 [facility] [address] Studies 15.0 [facility] [place] Laboratory Hematocrit 30.7 % 36.0 - 03/24 [facility]. Studies 45.0 [facility] [place] Laboratory Iron Level 7.0 ug/dL 28 - 170 03/23 [facility] Studies /2017 [facility] [place] Laboratory Bedside 145 mg/dl 65 - 120 03/23 [facility]. Studies Glucose /2017 [facility] [place] Laboratory Hemoglobin 6.6 % 4 - 6.0 03/23 [facility]. Studies A1c /2017 [facility] [place] Laboratory White Blood 6.5 K/uL 4.3 - 10.9 03/23 [facility] [address] Studies Count /2017 [facility] [place] Laboratory Red Cell 18.0 % 12.1 - 03/23 [facility] Studies Distribution 15.2 [facility] Width [place] Laboratory Red Blood 3.47 M/uL 3.86 - 03/23 [facility]. Studies Count 4.86 [facility] [place] Laboratory Platelet 275 K/uL 152 - 406 03/23 [facility]. Studies Count /2017 [facility] [place] Laboratory Neutrophils 67.6 % 41.7 - 03/23 [facility] [address] Studies % 73.7 /2017 [facility] [place] Laboratory Monocytes % 12.8 % 3.3 - 12.3 03/23 [facility] [address] Studies /2017 [facility] [place] Laboratory [...] 4.4 K/uL 1.8 - 8.0 03/23 [facility] [address] Studies Neutrophil [facility] [place] Laboratory Absolute 0.8 K/uL 0.1 - 1.3 03/23 [facility] Studies Monocytes [facility] - (CBC) [place] Laboratory Absolute 1.2 K/uL 0.7 - 4.9 03/23 [facility] [address] Studies Lymphocytes [facility] (CBC) [place] Laboratory Absolute 0.1 K/uL 0 - 0.5 03/23 [facility] [address] Studies Eosinophils [facility] - (CBC) [place] Laboratory Absolute 0.0 K/uL 0 - 0.5 03/23 [facility] Studies Basophils [facility] (CBC) [place] Laboratory Sodium Level 141 mEq/L 135 - 145 03/23 St. Studies [facility] [place] Laboratory Serum Total 5.5 g/dL 6.0 - 8.3 03/23 [facility] Studies Protein [facility] [place] Laboratory Prealbumin 14.7 mg/dl 18 - 38 03/23 [facility] [address] Studies [facility] [place] Laboratory Potassium 4.4 mEq/L 3.6 - 5.0 03/23 [facility] Studies Level /2017 [facility] [place] Laboratory Glucose 106 mg/dL 65 - 120 03/23 [facility] [address] Studies Level /2017 [facility] [place] Laboratory Estimat 72 mL/min 90 03/23 [facility] Studies Glomerular /2017 [facility] - Filtration [place] Rate Laboratory Creatinine 0.77 mg/dL 0.44 - 03/23 [facility] [address] Studies 1.00 [facility] [place] Laboratory Chloride 106 mEq/L 101 - 111 03/23 [facility] [address] Studies Level /2017 [facility] [place] Laboratory Carbon 29 mEq/L 21 - 31 03/23 [facility] [address] Studies Dioxide /2017 [facility] - Level [place] Laboratory Calcium 9.0 mg/dL 8.5 - 10.5 03/23 [facility] [address] Studies Level /2017 [facility] [place] Laboratory Blood Urea 18 mg/dL 6 - 20 03/23 [facility]. Studies Nitrogen /2017 [facility] [place] Laboratory Albumin 3.5 g/dL 3.2 - 5.5 03/23 [facility]. Studies /2017 [facility] [place] Laboratory Segmented 86 % 40 - 80 01/30 [facility]. Studies Neutrophils [facility] [place] Laboratory Rouleau Rouleau 01/30 [facility]. Studies [facility] [place] Laboratory Polychromasi Polychroma 01/30 [facility]. Studies a iglesia [facility] [place] Laboratory Ovalocytes Ovalocytes 01/30 [facility]. Studies [facility] [place] [facility] Monocytes 3 % 0 - 10 01/30 [facility]. [facility] [place] [facility] Lymphocytes 11 % 15 - 42 01/30 [facility]. [facility] [place] Laboratory Hypersegment Hypersegme 01/30 [facility]. Studies ed nted [facility] - Neutrophils Neutrophil [place] Laboratory Blood Blood 01/30 [facility]. Studies Morphology Morphology [facility] - Comment Comment [place] Laboratory Anisocytosis Anisocytos 01/30 [facility]. Studies is [facility] [place] BLOOD BANK Antibody Negative 06/26 [facility] RESULTS [facility] (06/26/14 5:48 AM) Center BLOOD BANK ABO/Rh B POS 06/26 [place] RESULTS /2014 [facility] Center CHEM PANEL Magnesium 2.0 mg/dL 1.8 - 2.4 06/26 [facility] ELECTROLYT AGAP 13.8 meq/L 10.0 - 06/26 [facility] 20.0 [facility] ELECTROLYT eGFR 70 06/26 1Result Comment: The eGFR is calculated using the CKD-EPI formula. In most young, healthy individuals the eGFR will be >90 mL/ min/1.73m2. The eGFR declines with age. An eGFR of 60-89 may be normal in [facility] mL/min/1. some populations, particularly the elderly, for whom the CKD-EPI formula has not been extensively validated. Use of the eGFR is not recommended in the following populations: [address] Individuals with unstable creatinine concentrations, including [...] Lvl 8.8 mg/dL 8.5 - 10.5 06/26 [facility] ELECTROLYT Chloride Lvl 105 meq/L 95 - 109 06/26 [facility] ELECTROLYT CO2 26 meq/L 24 - 32 06/26 [facility] ELECTROLYT Potassium 3.8 meq/L 3.5 - 5.1 06/26 [facility] ELECTROLYT Sodium Lvl 141 meq/L 135 - 145 06/26 [facility] ELECTROLYT Creatinine 0.8 mg/dL 0.5 - 1.4 06/26 [facility] ELECTROLYT BUN 16 mg/dL 7 - 22 06/26 [facility] ELECTROLYT Glucose Lvl 143 mg/dL 70 - 99 06/26 2Interpretive Data: Adult reference range values reflect the clinical guidelines [facility] of the [place] [employer]. [facility] HEMATOLOGY Eosinophils 1.7 % 0.0 - 4.0 06/26 [facility] HEMATOLOGY Basophils 0.5 % 0.0 - 1.0 06/26 [facility] HEMATOLOGY Lymphocytes 20.0 % 20.0 - 06/26 [facility] 40.0 Medical Center HEMATOLOGY Monocytes 11.3 % 2.0 - 12.0 06/26 [facility] HEMATOLOGY Segs 66.5 % 45.0 - 06/26 75.0 [facility] HEMATOLOGY Eosinophils 0.1 K/CMM 0.0 - 0.5 06/26 # /2014 [facility] HEMATOLOGY Segs-Bands # 4.7 K/CMM 1.5 - 8.1 06/26 [facility] HEMATOLOGY Lymphocytes 1.4 K/CMM 1.0 - 5.5 06/26 # [facility] HEMATOLOGY Monocytes # 0.8 K/CMM 0.0 - 0.8 06/26 [facility] HEMATOLOGY INR 1.08 0.85 - 06/26 4Interpretive Data: RECOMMENDED RANGES FOR PROTIME INR: [facility] 1. 2.0-3.0 for most medical and surgical thromboembolic states. Medical 2.5-3.5 for artificial heart valves and recurrent embolism. Center INR SHOULD BE USED ONLY FOR PATIENTS ON STABLE ANTICOAGULANT THERAPY. HEMATOLOGY PT 14.1 s 12.0 - 06/26 14.7 [facility] HEMATOLOGY PTT 30.5 s 22.9 - 06/26 5Interpretive 35.8 Data: Heparin [facility] Therapeutic Center Range: 57 - 92 Seconds HEMATOLOGY MPV 9.1 fL 7.4 - 10.4 06/26 [facility] HEMATOLOGY MCH 29.5 pg 27.0 - 06/26 31.0 [facility] HEMATOLOGY MCV 89.3 fL 80.0 - 06/26 98.0 [facility] HEMATOLOGY Platelet 195 K/CMM 133 - 450 06/26 [facility] HEMATOLOGY RDW 15.5 % 11.5 - 06/26 14.5 [facility] HEMATOLOGY MCHC 33.0 g/dL 32.0 - 06/26 36.0 [facility] HEMATOLOGY WBC 7.1 K/CMM 3.7 - 10.4 06/26 /2014 [facility] HEMATOLOGY Hgb 12.7 g/dL 12.0 - 06/26 16.0 [facility] HEMATOLOGY RBC 4.30 M/CMM 4.20 - 06/26 [place] 5.40 [facility] HEMATOLOGY Hct 38.4 % 36.0 - 06/26 [facility] 48.0 /2014 [facility] LIPIDS CHD Risk 6.12 3.90 - 06/26 [facility] 5.80 [facility] LIPIDS VLDL 77 06/26 [facility] LIPIDS LDL 51 mg/dL <=99 mg/dL 06/26 [facility] (Calculated) [facility] LIPIDS HDL 25 mg/dL >=61 mg/dL 06/26 [facility] LIPIDS Trig 386 mg/dL <=149 06/26 [facility] mg/dL [facility] LIPIDS Chol 153 mg/dL <=199 06/26 3Result [facility] mg/dL Comment: [facility] Slightly Hemolyzed. Vital Signs Vital [...] - [place] Systolic (mm Hg) 161 06/26/2014 [facility] Diastolic (mm Hg) 71 06/26/2014 [facility] Systolic (mm Hg) 147 06/26/2014 [facility] Diastolic (mm Hg) 71 06/26/2014 [facility] Respitory Rate 16 06/26/2014 [facility] Systolic (mm Hg) 131 06/26/2014 [facility] Diastolic (mm Hg) 62 06/26/2014 [facility] Respitory Rate 16 06/26/2014 [facility] Respitory Rate 16 06/26/2014 [facility] Weight 109.545 06/26/2014 [facility] Height 157.48 cm 06/26/2014 [facility] BMI Calculated 44.17 06/26/2014 [facility] Temperature Oral (F) 97.7 F 06/26/2014 [facility] Encounters Location Location Encounter Encounter Reason Attending ADM DC Status Source Details Type Number For Provider Date Date [id number] Ayaan 06/26 06/26 [facility] Outpatient Ricardo /2014 /2014 [facility] [id number] 12/26 [facility] [place] [facility] [id number] 01/30 [facility] [place] [facility] Departed [id number] 02/06 02/06 [facility] Surgical [facility]2016 [facility] [place] [facility] [place] [facility] Registered [id number] 03/23 [facility] Recurring /2017 [facility] [place] [facility] Discharged [id number] 03/23 03/[address] [facility]2017 [facility] [place] Procedures Procedure Code Date Perfomer Comments Source Anaerobic Blood 03/23/2017 [facility] Birdie - Culture [place] Aerobic Blood 03/23/[address] [facility] Packer - Culture [place] OCCLUSION OF [id number] 02/06/[address] [facility] [address] Packer - LOWER VEIN, OPEN [place] APPROACH TRANSFER RIGHT [id number] 02/06/2017 [facility] [address] Packer - LOWER LEG SKIN, [place] EXTERNAL APPROACH VASCULAR SURGERY [id number] 02/06/2017 [facility] - PROCEDURE [place] Back [id number] 1back surgery [facility]<sup>1</sup> with shaved Center off spur Carpal tunnel [id number] [facility] Gallbladder [id number] [facility] Kidney stone [id number] [facility] Knee replacement [id number] [facility]
[2018-07-19 10:41] LABS: Absolute Lymphocytes (CBC) 1.4 K/uL (0.7-4.9); Absolute Monocytes 0.7 K/uL (0.1-1.3); Basophils % 0.4 % (0-1.3); Eosinophils % 0.2 % (0-4.4); Hematocrit 34.7 % (36.0-45.0); Lymphocytes % 17.8 % (15.3-44.8); MPV 8.3 fL (7.6-11.3); Monocytes % 8.4 % (3.3-12.3); RBC Red Blood Cell Count 3.72 M/uL (3.86-4.86)
[2018-07-19 10:43] LABS: Protime INR 1.3
[2018-07-19] MEDS ORDERED: NA CHLORIDE 0.9% 500 ML ONE (10:44)
[2018-07-19 10:57] LABS: Albumin 2.9 g/dL (3.4-5.0); Bilirubin Direct 0.2 mg/dL (0-0.2); Bilirubin Total 0.7 mg/dL (0.2-1.0); Magnesium 1.9 mg/dL (1.8-2.4); Potassium 3.7 mmol/L (3.5-5.1); Protein, Total 6.1 g/dL (6.4-8.2); Troponin (Emerg Dept Use Only) 0.33 ng/mL (0.0-0.045)
--- NOTE | 2018-07-19 11:06 | RAD REPORT ---
EXAM DESCRIPTION: Jose Single View07/19/2018 10:39 am CLINICAL HISTORY: chills/hypertension COMPARISON: April 2018 FINDINGS: The lungs appear clear of acute infiltrate. The heart is mildly enlarged. Cervical aortic arch is suspected IMPRESSION: No acute abnormalities displayed
--- NOTE | 2018-07-19 13:38 | RAD REPORT ---
EXAM DESCRIPTION: CT - Chest For Pe Angio - 07/19/2018 1:20 pm CLINICAL HISTORY: Shortness of breath, elevated D-dimer COMPARISON: Portable chest same date, CT chest March 2018 TECHNIQUE: Dynamically enhanced 3 mm thick images of the chest were obtained during administration o f approximately 150mL Isovue 370 IV contrast. Coronal and oblique MIP reconstruction images were gene rated and reviewed. Exam utilizes a protocol to evaluate the pulmonary arterial tree. All CT scans are performed using dose optimization technique as appropriate and may include automated exposure control or mA/KV adjustment according to patient size. FINDINGS: No pulmonary emboli are identified. The aorta as imaged shows no acute or suspicious finding. No pericardial thickening or effusion. No focal mass or consolidation. Interstitial markings are mildly prominent. There is scattered ground -glass alveolar opacities primarily in the lower lung wong. Pattern is less pronounced than seen in March. This could be atelectasis or minimal alveolar edema. No pleural effusion or pleural thicke gila. No mediastinal or hilar suspicious masses. No chest wall masses or abnormal axillary lymphadenopathy. Heart size is prominent similar to comparison. No pericardial effusion or pericardial thickening. IMPRESSION: No pulmonary emboli identified. Minimal atelectasis or alveolar edema.
--- NOTE | 2018-07-19 14:01 | ER ---
Nurse's Notes [facility] Name: Dianne Juárez Age: 83 yrs Sex: Female : 1935 Arrival Date: 07/19/2018 Time: 09:30 Bed 2 Private MD: Darren Rudd R Diagnosis: Weakness;Elevated Troponin;Non-ST elevation (NSTEMI) myocardial infarction Presentation: 07/19 09:45 Presenting complaint: daughter reports that patient has not had any motivation to get ss up over the past 6 weeks and has been very tired. Pt reported chills yesterday to daughter and that's what has made her concerned today. Transition of care: patient was not received from another setting of care. Onset of symptoms is unknown. Risk Assessment: Do you want to hurt yourself or someone else? Patient reports no desire to harm self or others. Initial Sepsis Screen: Does the patient meet any 2 criteria? No. Patient's initial sepsis screen is negative. Does the patient have a suspected source of infection? No. Patient's initial sepsis screen is negative. Care prior to arrival: None. 09:45 Method Of Arrival: Wheelchair ss 09:45 Acuity: DOMINIQUE 3 ss Historical: - Allergies: 09:48 Adhesives; ss 09:48 Sulfa (Sulfonamide Antibiotics); ss - PMHx: 09:48 Atrial Fib; Diabetes - NIDDM; Hyperlipidemia; Hypertension; Hypothyroidism; irregular ss heart beat; - PSHx: 09:48 Knee surgery; Cholecystectomy; BACK SURGERY; Lithotripsy; Carpal Tunnel Repair; ss - Immunization history:: Adult Immunizations up to date. - Social history:: Smoking status: Patient/guardian denies using tobacco. - Ebola Screening: : Patient denies exposure to infectious person Patient denies travel to an Ebola-affected area in the 21 days before illness onset. Screenin:45 Abuse screen: Denies threats or abuse. Denies injuries from another. Nutritional hb screening: No deficits noted. Tuberculosis screening: No symptoms or risk factors identified. Fall Risk Total Walter Fall Scale indicates Low Risk Score (25-44 pts). Fall prevention measures have been instituted. Side Rails Up X 2 Frequent Obs/Assesments occuring Family Present and informed to notify staff if they need to leave bedside As available Patient and Family Educated on Fall Prevention Program and strategies. Assessment: 10:45 General: Appears in no apparent distress. Behavior is calm, cooperative. Pain: Denies hb pain. Neuro: Level of Consciousness is awake, alert, obeys commands, Oriented to person, place, time, situation. Cardiovascular: Heart tones S1 S2 present Capillary refill < 3 seconds Patient's skin is warm and dry. Respiratory: Airway is patent Respiratory effort is even, unlabored, Respiratory pattern is regular, symmetrical, Breath sounds are clear bilaterally. GI: Reports anorexia. : No signs and/or symptoms were reported regarding the genitourinary system. EENT: No signs and/or symptoms were reported regarding the EENT system. Derm: Skin is intact, is healthy with good turgor, Skin is dry, Skin is pale, Skin temperature is warm. Musculoskeletal: No signs and/or symptoms reported regarding the musculoskeletal system. 11:30 Reassessment: Patient appears in no apparent distress at this time. No changes from hb previously documented assessment. Patient and/or family updated on plan of care and expected duration. Pain level reassessed. Patient is alert, oriented x 3, equal unlabored respirations, skin warm/dry/pink. 12:30 Reassessment: Patient appears in no apparent distress at this time. No changes from hb previously documented assessment. Patient and/or family updated on plan of care and expected duration. Pain level reassessed. Patient is alert, oriented x 3, equal unlabored respirations, skin warm/dry/pink. 13:30 Reassessment: Patient appears in no apparent distress at this time. Patient and/or hb family updated on plan of care and expected duration. Pain level reassessed. Patient is alert, oriented x 3, equal unlabored respirations, skin warm/dry/pink. 14:30 Reassessment: Patient appears in no apparent distress at this time. No changes from hb previously documented assessment. Patient and/or family updated on plan of care and expected duration. Pain level reassessed. Patient is alert, oriented x 3, equal unlabored respirations, skin warm/dry/pink. 15:15 Reassessment: Patient appears in no apparent distress at this time. Patient and/or hb family updated on plan of care and expected duration. Pain level reassessed. Patient is alert, oriented x 3, equal unlabored respirations, skin warm/dry/pink. Vital Signs: 09:49 BP 134 / 79; Pulse 89; Resp 18; Temp 97.4(TE); Pulse Ox 95% on R/A; Weight 91.63 kg; ss Height 5 ft. 3 in. (160.02 cm); Pain 0/10; 11:05 BP 110 / 66; Pulse 91; Resp 18; Pulse Ox 94% on R/A; hb 11:41 BP 109 / 57; Pulse 82; Resp 18; Pulse Ox 100% ; sv 13:02 BP 108 / 69; Pulse 84; Resp 17; Pulse Ox 96% on R/A; hb 13:55 BP 124 / 77; Pulse 82; Resp 17; Pulse Ox 98% ; sv 15:15 BP 115 / 68; Pulse 70; Resp 16; Temp 97.7; Pulse Ox 98% on R/A; Pain 0/10; hb 09:49 Body Mass Index 35.78 (91.63 kg, 160.02 cm) ss ED Course: 09:30 Patient arrived in ED. mr 09:30 Darren Rudd MD is Private Physician. mr 09:47 Triage completed. ss 09:49 Arm band placed on right wrist. ss 09:51 EKG done, by java technical architect. reviewed by Leif West MD. at1 10:06 Eliel Fong PA is PHCP. jmm 10:06 Leif West MD is Attending Physician. jmm 10:32 Nubia Betancur, RN is Primary Nurse. hb 10:39 X-ray completed. Portable x-ray completed in exam room. Patient tolerated procedure tm4 well. 10:39 XRAY Chest (1 view) In Process Unspecified. EDMS 10:45 Patient has correct armband on for positive identification. Placed in gown. Bed in low hb position. Call light in reach. Side rails up X 1. 10:47 Inserted saline lock: 20 gauge in right antecubital area, using aseptic technique. hb Blood collected. 13:21 CT Chest For PE Angio In Process Unspecified. EDMS 13:58 Basic Metabolic Panel Sent. sv 13:58 CBC with Diff Sent. sv 13:59 Darren Rudd MD is Hospitalizing Provider. jmm 15:20 No provider procedures requiring assistance completed. Patient admitted, IV remains in hb place. Administered Medications: 10:33 Drug: NS 0.9% 500 ml Route: IV; Rate: bolus; Site: right antecubital; hb 11:20 Follow up: Response: No adverse reaction; IV Status: Completed infusion; IV Intake: hb 500ml Intake: 11:20 IV: 500ml; Total: 500ml. hb Outcome: 13:59 Decision to Hospitalize by Provider. karen 15:20 Admitted to Tele accompanied by tech, family with patient, via stretcher, room 402, hb with chart, Report called to Kayla LANDEROS 15:20 Condition: stable 15:20 Instructed on the need for admit, Demonstrated understanding of instructions. 15:53 Patient left the ED. hb Signatures: Dispatcher [employer] EDMara Weaver, RN RN Eliel Lr PA PA [facility] Malagon, Ana Luisa mr Pabon, Tequila tm4 Jordana Juarez RN RN Josefina Coleman, brine maker EKG Tat1 Nubia Betancur RN RN hb
--- NOTE | 2018-07-19 14:01 | EDPHYS ---
Physician Documentation [facility] Name: Dianne Juárez Age: 83 yrs Sex: Female : 1935 Arrival Date: 07/19/2018 Time: 09:30 Bed 2 Private MD: Darren Rudd R ED Physician Leif West HPI: 07/19 10:15 This 83 yrs old Female presents to ER via Wheelchair with complaints of jmm Weakness. 10:15 This is an 83 year old female with a history of atrial fibrillation, DM, HTN, jmm hypothyroidism that presents to the ED with complaints of weakness ongoing for several weeks. Patient visited with cardiology this past Monday and Dr. Rudd 2 days ago. Patient was prescribed oral antibiotics for UTI. . Onset: The symptoms/episode began/occurred gradually. The patient has experienced a previous episode, dehydration. The patient has been recently seen by a physician: the patient's primary care provider. Historical: - Allergies: 09:48 Adhesives; ss 09:48 Sulfa (Sulfonamide Antibiotics); ss - PMHx: 09:48 Atrial Fib; Diabetes - NIDDM; Hyperlipidemia; Hypertension; Hypothyroidism; irregular ss heart beat; - PSHx: 09:48 Knee surgery; Cholecystectomy; BACK SURGERY; Lithotripsy; Carpal Tunnel Repair; ss - Immunization history:: Adult Immunizations up to date. - Social history:: Smoking status: Patient/guardian denies using tobacco. - Ebola Screening: : Patient denies exposure to infectious person Patient denies travel to an Ebola-affected area in the 21 days before illness onset. ROS: 10:15 Eyes: Negative for injury, pain, redness, and discharge, Cardiovascular: Negative for jmm chest pain, palpitations, and edema, Respiratory: Negative for shortness of breath, cough, wheezing, and pleuritic chest pain, Abdomen/GI: Negative for abdominal pain, nausea, vomiting, diarrhea, and constipation. 10:15 Constitutional: Positive for chills, malaise. 10:15 Neuro: Positive for weakness. 10:15 All other systems are negative. Exam: 10:15 Constitutional: This is a well developed, well nourished patient who is awake, alert, jmm and in no acute distress. Head/Face: atraumatic. Eyes: EOMI, no conjunctival erythema appreciated ENT: Moist Mucus Membranes Neck: Trachea midline, Supple Chest/axilla: Normal chest wall appearance and motion. Cardiovascular: Regular rate and rhythm. No edema appreciated Respiratory: Normal respirations, no respiratory distress appreciated Abdomen/GI: Non distended, soft Back: Normal ROM Skin: General appearance color normal MS/ Extremity: Moves all extremities, no obvious deformities appreciated, no edema noted to the lower extremities Neuro: Awake and alert, Psych: Behavior is normal, Mood is normal, Patient is cooperative and pleasant 13:55 ECG was reviewed by the Attending Physician. [facility] Vital Signs: 09:49 BP 134 / 79; Pulse 89; Resp 18; Temp 97.4(TE); Pulse Ox 95% on R/A; Weight 91.63 kg; ss Height 5 ft. 3 in. (160.02 cm); Pain 0/10; 11:05 BP 110 / 66; Pulse 91; Resp 18; Pulse Ox 94% on R/A; hb 11:41 BP 109 / 57; Pulse 82; Resp 18; Pulse Ox 100% ; sv 13:02 BP 108 / 69; Pulse 84; Resp 17; Pulse Ox 96% on R/A; hb 13:55 BP 124 / 77; Pulse 82; Resp 17; Pulse Ox 98% ; sv 15:15 BP 115 / 68; Pulse 70; Resp 16; Temp 97.7; Pulse Ox 98% on R/A; Pain 0/10; hb 09:49 Body Mass Index 35.78 (91.63 kg, 160.02 cm) ss MDM: 10:11 Patient medically screened. [facility] 13:55 Data reviewed: vital signs, nurses notes. Counseling: I had a detailed discussion with [facility] the patient and/or guardian regarding: the historical points, exam findings, and any diagnostic results supporting the discharge/admit diagnosis, lab results, radiology results, the need for further work-up and treatment in the hospital. ED course: i discussed the patient with Dr. Rudd whom accepts admission. Requests observation admission. . 13:58 ED course: I discussed admission with Dr. West whom agrees with the plan of care. . [facility] 07/19 10:12 Order name: Basic Metabolic Panel [facility] 07/19 10:12 Order name: CBC with Diff [facility] 07/19 10:12 Order name: LFT's; Complete Time: 11:17 [facility] 07/19 10:12 Order name: Magnesium; Complete Time: 11:17 [facility] 07/19 10:12 Order name: NT PRO-BNP; Complete Time: : [facility] 07/19 10:12 Order name: PT-INR; Complete Time: : [facility] 07/19 10:12 Order name: Troponin (emerg Dept Use Only); Complete Time: 11:17 [facility] 07/19 10:12 Order name: Type And Screen; Complete Time: 11: [facility] 07/19 10:13 Order name: Basic Metabolic Panel; Complete Time: 11: [facility] 07/19 10:13 Order name: CBC with Automated Diff; Complete Time: : [facility] 07/19 10:19 Order name: Procalcitonin; Complete Time: 11:50 [facility] 07/19 11:29 Order name: D-Dimer; Complete Time: 12:57 [facility] 07/19 14:08 Order name: Troponin I [facility] 07/19 14:08 Order name: Troponin I [facility] 07/19 10:12 Order name: XRAY Chest (1 view); Complete Time: 11: [facility] 07/19 10:12 Order name: EKG; Complete Time: 10:13 [facility] 07/19 10:12 Order name: Cardiac monitoring; Complete Time: : [facility] 07/19 10:12 Order name: EKG - Nurse/Tech; Complete Time: : [facility] 07/19 10:12 Order name: IV Saline Lock; Complete Time: 10: [facility] 07/19 10:12 Order name: Labs collected and sent; Complete Time: 10: [facility] 07/19 10:12 Order name: O2 Per Protocol; Complete Time: 10: [facility] 07/19 12:33 Order name: CT Chest For PE Angio; Complete Time: 13:39 [facility] 07/19 14:08 Order name: CONS Physician Consult [facility] 07/19 14:08 Order name: Consistent Carb (ADA) [address] [facility] 07/19 14:08 Order name: EKG Electrocardiogram [facility] 07/19 14:08 Order name: EKG Electrocardiogram [facility] 07/19 14:08 Order name: EKG Electrocardiogram [facility] 07/19 14:08 Order name: EKG Electrocardiogram [facility] 07/19 14:14 Order name: Diet Regular; Complete Time: 14:15 hb 07/19 10:12 Order name: O2 Sat Monitoring; Complete Time: 10:57 jm EC:55 Rate is 97 beats/min. Rhythm is irregular, A fib. Left axis deviation noted. ND jmm interval is normal. QRS interval is normal. QT interval is normal. No Q waves. No ST changes noted. Administered Medications: 10:33 Drug: NS 0.9% 500 ml Route: IV; Rate: bolus; Site: right antecubital; hb 11:20 Follow up: Response: No adverse reaction; IV Status: Completed infusion; IV Intake: hb 500ml Disposition: 07/20 09:08 Co-signature as Attending Physician, Leif West MD I agree with the assessment and kdr plan of care. Disposition: 07/19/18 13:59 Hospitalization ordered by Darren Rudd for Observation. Preliminary diagnosis are Weakness, Elevated Troponin, Non-ST elevation (NSTEMI) myocardial infarction. - Bed requested for Telemetry/MedSurg (observation). - Status is Observation. hb - Condition is Stable. - Problem is new. - Symptoms have improved. UTI on Admission? Yes Signatures: Dispatcher [employer] EDSoraya Sarah RN RN Leif West MD MD kdr Mickail, Joel, PA PA [facility] Jordana Juarez RN RN Nubia Betancur RN RN Corrections: (The following items were deleted from the chart) 07/19 15:01 13:59 Hospitalization Ordered by Darren Rudd MD for Observation. Preliminary diagnosis dw is Weakness; Elevated Troponin; Non-ST elevation (NSTEMI) myocardial infarction. Bed requested for Telemetry/MedSurg (observation). Status is Observation. Condition is Stable. Problem is new. Symptoms have improved. UTI on Admission? Yes. [facility] 15:53 15:01 07/19/2018 13:59 Hospitalization Ordered by Darren Rudd MD for Observation. hb Preliminary diagnosis is Weakness; Elevated Troponin; Non-ST elevation (NSTEMI) myocardial infarction. Bed requested for Telemetry/MedSurg (observation). Status is Observation. Condition is Stable. Problem is new. Symptoms have improved. UTI on Admission? Yes. dw
[2018-07-19] MEDS ORDERED: ONDANSETRON 4 MG/2 ML VIAL IV PRN (14:03)
[2018-07-19] MEDS ORDERED: ACETAMINOPHEN 500 MG TAB PO PRN (14:03)
--- NOTE | 2018-07-19 16:31 | EKG ---
Test Date: 2018-07-19 Test Time: 09:48:26 Stockroom Keeper: MARGARITO MEASUREMENT RESULTS: Intervals: Rate: 97 GA: QRSD: 74 QT: 360 QTc: 457 Parnell: P: GA: QRS: -30 T: 17 INTERPRETIVE STATEMENTS: Atrial fibrillation Left axis deviation Nonspecific ST abnormality Abnormal ECG Compared to ECG 05/27/2018 11:11:41 Left-axis deviation now present ST (T wave) deviation now present Myocardial infarct finding no longer present Electronically Signed On 07-19-18 16:29:39 CDT by Oleg Tucker
[2018-07-19 16:46] VITALS: BMI 35.4
[2018-07-19] MEDS: FUROSEMIDE 40 MG TABLET PO SCH (17:46)
[2018-07-19] MEDS: METOPROLOL TAR 25 MG TAB PO SCH (20:18)
[2018-07-19] MEDS: CIPROFLOXACIN HCL 250 MG TAB PO SCH (20:20)
[2018-07-19] MEDS: VALACYCLOVIR 500 MG TAB PO SCH (20:20)
[2018-07-19] MEDS ORDERED: HOME MED 1 EA UNK (Simvastatin [Simvastatin] 10 MG) PO SCH (21:00)
[2018-07-19] MEDS ORDERED: ATORVASTATIN 10 MG TAB PO SCH (21:00)
[2018-07-20] MEDS ORDERED: HOME MED 1 EA UNK (Levothyroxine Sodium [Synthroid] 150 MCG) PO SCH (06:00)
[2018-07-20 06:06] LABS: Absolute Lymphocytes (CBC) 0.9 K/uL (0.7-4.9); Absolute Monocytes 0.4 K/uL (0.1-1.3); Absolute Neutrophil 5.4 K/uL (1.8-8.0); Basophils % 0.2 % (0-1.3); Eosinophils % 0.2 % (0-4.4); Hematocrit 31.7 % (36.0-45.0); MPV 8.5 fL (7.6-11.3); Monocytes % 6.6 % (3.3-12.3)
[2018-07-20] MEDS ORDERED: LEVOTHYROXINE SOD 0.075 MG TAB PO SCH (06:30)
[2018-07-20 06:36] LABS: Potassium 4.2 mmol/L (3.5-5.1)
[2018-07-20 07:18] LABS: Anisocytosis 1+; Blood Morphology Comment NOTED (NOT SEEN); Platelet Estimate ADEQ; Urine White Blood Cell Casts OK
[2018-07-20] MEDS ORDERED: PANTOPRAZOLE 40MG TABLET PO SCH (07:30)
[2018-07-20] MEDS: CIPROFLOXACIN HCL 250 MG TAB PO SCH (08:25)
[2018-07-20] MEDS: FUROSEMIDE 40 MG TABLET PO SCH (08:25)
[2018-07-20] MEDS: METOPROLOL TAR 25 MG TAB PO SCH (08:25)
[2018-07-20] MEDS: VALACYCLOVIR 500 MG TAB PO SCH ×2 (08:27→13:53)
[2018-07-20] MEDS ORDERED: ASPIRIN EC 81 MG TAB PO SCH ×2 (09:00)
[2018-07-20] MEDS ORDERED: FAMOTIDINE 20 MG TAB PO SCH (09:00)
[2018-07-20] MEDS ORDERED: HOME MED 1 EA UNK (Lansoprazole [Prevacid] 30 MG) PO SCH (09:00)
[2018-07-20] MEDS ORDERED: APIXABAN 5 MG TABLET PO SCH (09:00)
[2018-07-20] MEDS ORDERED: MUPIROCIN 2% OINT 22GM TUBE TOP SCH (09:00)
[2018-07-20] MEDS ORDERED: HOME MED 1 EA UNK (Lisinopril [Zestril] 2.5 MG) PO SCH (09:00)
[2018-07-20] MEDS ORDERED: LISINOPRIL 5 MG TAB PO SCH (09:00)
[2018-07-20 11:47] VITALS: O2SAT 97
[2018-07-20] MEDS ORDERED: GLUCAGON 1 MG/VIAL IM PRN (12:17)
[2018-07-20] MEDS ORDERED: D50W 25 GM/50 ML SYRINGE IV PRN (12:17)
[2018-07-20 13:35] VITALS: BP 104/44; TEMP 98.3
[2018-07-20] MEDS ORDERED: INSULIN -REGULAR HUMAN 50 UNIT/0.5 ML ML SQ SCH (16:30)
--- NOTE | 2018-07-20 16:46 | EKG ---
Test Date: 2018-07-20 Test Time: 07:32:26 County Adviser: MARGARITO MEASUREMENT RESULTS: Intervals: Rate: 63 AK: QRSD: 76 QT: 404 QTc: 413 Norden: P: AK: QRS: -23 T: -8 INTERPRETIVE STATEMENTS: Atrial fibrillation Nonspecific ST abnormality, probably digitalis effect Abnormal ECG Compared to ECG 07/19/2018 09:48:26 Left-axis deviation no longer present ST (T wave) deviation still present Electronically Signed On 07-20-18 16:43:06 CDT by Ari Eastman
--- NOTE | 2018-07-20 17:50 | HP ---
Date of Admission: 07/19/2018 Chief Complaint: Feeling weak. History Of Present Illness: An 83-year-old female was brought to the emergency room because she was feeling weak and cold. However, she claims that she is feeling okay today. There was extensive eval uation in the emergency room including a PE evaluation with CT chest, it was negative. The patient h owever had elevated troponin, and the patient is admitted by ER physician. Past Medical History: Positive for history of type 2 diabetes, recently she was treated for urinary tract infection with Cipro, which she is taking currently. She has history of chronic atrial fibrill ation. She has history of hyperlipidemia, hypothyroidism. Past Surgical History: Positive for gallbladder surgery, back surgery, kidney stones and lithotripsy , wrist surgery for carpal tunnel, and knee surgery for arthritis. Family History: Diabetes present. Personal History: Nonsmoker. Allergies: TO SULFA DRUGS. Home Medicines: Please refer to the chart. Review of Systems: The patient denied any fever, chills, rigors. Physical Examination: General: Revealed an 83-year-old female, comfortable at rest. HEENT: Negative. Neck: Supple. JVD negative. Chest: Occasional wheezes. Otherwise, normal. Heart: The patient has irregular pulse. Abdomen: Pendulous, nontender. Extremities: No edema. Pedal pulses are poor bilaterally. Laboratory Data: White count normal. EKG atrial fibrillation. CT chest, no evidence of PE. Assessment: 1.Feeling weak and tired. 2.Elevated troponin. 3.Recent urinary tract infection. 4.Type 2 diabetes. 5.Chronic atrial fibrillation. 6.Hypertension. 7.Hyperlipidemia. 8.Osteoarthritis. Plan: The patient does not have any chest pain. It is not clear what needs to be done in this setti ng. There is Cardiology consultation. The patient will be continued on Cipro for UTI, and the patie nt will be given her regular medications pending Cardiology consult. The patient is going to restart on Eliquis. ELYSSA/JON Voice ID: [id number]
--- NOTE | 2018-07-21 13:18 | CON ---
Date of Consultation: 07/20/2018 Reason For Consultation: Weakness and elevated troponin. History Of Present Illness: Ms. Juárez is an 83-year-old [place] woman who actually looks muc h younger than her stated age. She sees Dr. Silva at the [facility] for her cardiac care. H is phone number is [phone] and [phone]. Dr. Silva recently saw Ms. Juárez and he put her o n Eliquis in addition to her present regimen which include ciprofloxacin, Lasix, Pepcid, Amaryl, Synt hroid, Prevacid, metoprolol, Zocor, and Valtrex. She has a history of atrial fibrillation. She is s tatus post Lariat procedure, but she continues to be in atrial fibrillation that is why Eliquis was a dded. No changes in her other regimen was done, but she came into the hospital with very nonspecific symptoms basically weakness and was found to have an elevated troponin of 0.33. Her BNP was 1345. She was in atrial fibrillation at a rate of 65. Her glucose was 282. Her D-dimer was 2062 with a ne gative CT angiogram for pulmonary embolus. She had a normal chest x-ray and normal CT angiogram. EK G showed atrial fibrillation at a rate of 65. Echocardiogram which was done 2 months ago showed mild pulmonary hypertension with normal ejection fraction. A stress test that was done 2 months ago was normal. Past Medical History: Positive for atrial fibrillation, diabetes, hypertension, dyslipidemia, hypoth yroidism, and gastroesophageal reflux disease. Allergies: TO SULFA AND TAPE. Review of Systems: Negative. Social History: Negative. Family History: Negative. Medications: As listed earlier. Physical Examination: General: She was in atrial fibrillation, rate of about 60-65, asymptomatic. No acute distress. HEENT: Negative. Neck: Supple, no bruit. Chest: Clear. Cardiac: Exam revealed atrial fibrillation. Abdomen: Benign. Extremities: Revealed no clubbing, cyanosis, or edema. Diagnostic Data: As stated earlier. Impression And Plan: 1.Chronic atrial fibrillation, status post Lariat procedure, remains in atrial fibrillation. She is on Eliquis, she is on aspirin, she is on metoprolol. I believe some of her symptoms of weakness may be related to her medications. Certainly, the metoprolol can be held or discontinue. Even with atr ial fibrillation her rate is only in the 60s. I will call Dr. Silva and discuss that with him. 2.Diabetes, poorly controlled. 3.Hypertension, well controlled. 4.Dyslipidemia. 5.Hypothyroidism. 6.Gastroesophageal reflux disease. 7.Elevated troponin, BNP, and D-dimer with negative CT angiogram. She had a negative Lexiscan recently and normal echocardiogram recently. Certainly, we can explain a ll of her abnormalities based on atrial fibrillation alone. I do not think we are dealing with any a cute coronary artery syndrome. I certainly do not want to repeat her testing that she just had 2 mon ths ago. I would feel comfortable continuing the Eliquis. I do not think she needs to take the Eliq uis with the aspirin. I think we need to continue Eliquis, stop aspirin, either decrease or get rid of the metoprolol and have her see Dr. Silva in the near future. I will attempt to contact Dr. Silva in the near future. I will discuss the case further with Dr. Rudd. I think if her symptoms persist in the near future despite getting off this medicine, then I think a heart ca theterization is indicated. SAÚL/JON Voice ID: [id number] Report ID: [id number]
== END 2018-07-20 15:39 | disposition home or self-care (01) ==
LOC: ER 09:27 → ERHOLD 14:01 → 4TH 15:20
PROVIDERS: ADMIT Internal Medicine; ATTEND Internal Medicine
DX: I48.2 Chronic atrial fibrillation (principal); N39.0 Urinary tract infection, site not specified; E11.9 Type 2 diabetes mellitus without complications; I10 Essential (primary) hypertension; E78.5 Hyperlipidemia, unspecified; E03.9 Hypothyroidism, unspecified; K21.9 Gastro-esophageal reflux disease without esophagitis; M19.90 Unspecified osteoarthritis, unspecified site; Z79.01 Long term (current) use of anticoagulants; Z79.82 Long term (current) use of aspirin; Z79.899 Other long term (current) drug therapy
CPT/HCPCS: 93005 ×2; 85025 ×2; 80048 ×2; 36415; 86900; 83735; 86850; 85610; 86901; 82962 ×4; 85379; 80076; 84484 ×3; 84145; 83880; 71275; 71045; 96360; 99285; Q9967; G0378 ×2

== ENCOUNTER 2018-08-30 21:52 | Emergency (ER) | payer OTHER ==
--- OUTSIDE RECORDS SUMMARY | 2018-08-30 21:56 | XMS REPORT | Clinical Summary ---
:1935 Author Organization [employer] Address [address] [place] [address] Care Team Providers Name Role Phone Asked, [...] Cv left atrial Cardiology appendage closure- LARIAT [84124 (CPT)] 12/20/2017 - Hospital Encounter Cardiology RicardoDevora [...] Cardiology MD Larry fibrillation (Primary Dx) after 08/29/2017 Immunizations Name Dates Previously Given Next Due [...] VACCINE (1 of 2 - PCV13) 2000 INFLUENZA VACCINE 09/27/2018 Implants Implanted Type Area Lining Feller Blindstitch Device Shelf Model / Identifier Expiration Serial / Date Lot Balloon Oclsn Endocath 0.35in 90cm [id number] - [id number] Cardiovascular N/A: [employer] 20 06 / [...] COLOR PM CDT procedure are in DOPPLER (43581) the results section. POC GLUCOSE Routine 12/23/2017 [...] CDT procedure are in the results section. AK AN ELECTIVE Routine 12/21/2017 8:49 ENDOTRACHEAL AIRWAY AM CDT Procedure Note - Rocco Becerra CRNA - 12/21/2017 8:49 AM CDT Airway Date/Time: 12/21/2017 8:33 AM Performed by: ROCCO BECERRA Authorized by: CARLOS ALBERTO MALONEY Location: OR Urgency: Elective Difficult Airway: No Anesthesiologist: CARLOS ALBERTO MALONEY Resident/ORTHOTIC AND PROSTHETIC TECHNICIAN/AA: ROCCO BECERRA Performed by: resident/ORTHOTIC AND PROSTHETIC TECHNICIAN/AA Preoxygenated with 100% O2: Yes C-spine Precautions [...] in DOPPLER COLORFLOW the results section. after 08/29/2017 Results POC glucose (06/15/2018 8:37 AM CDT)Only the most recent of21 resultswithin the time period is included. [facility] POC glucose 226 (H) 65 - 99 mg/dL [facility] Comment: [facility] Notified RN Meter ID: [id number] Caustic Plant Worker: Raghu Khan Specimen Performing Organization Address City/State/Zipcode Phone Number [facility] DEPARTMENT OF PATHOLOGY AND [address] [place] [address] GENOMIC MEDICINE [facility] [address] [place] [phone] CBC with platelet and differential (06/15/2018 4:25 AM CDT)Only the most recent of3 resultswithin the time period is included. [facility] WBC 8.53 4.50 - 11.00 [facility] k/uL HOSPITAL RBC 3.46 (L) 4.20 - 5.50 [facility] m/uL HOSPITAL HGB 10.5 (L) 12.0 - 16.0 [facility] g/dL HOSPITAL HCT 34.3 (L) 37.0 - 47.0 % [facility] MCV 99.1 82.0 - 100.0 [facility] MCH 30.3 27.0 - 34.0 pg [facility] MCHC 30.6 (L) 31.0 - 37.0 [facility] g/dL [facility] RDW - SD 60.5 (H) 37.0 - 55.0 fL [facility] MPV 10.6 8.8 - 13.2 fL [facility] Platelet count 170 150 - 400 k/uL [facility] Nucleated RBC 0.00 /100 WBC [facility] Neutrophils 83.8 (H) 39.0 - 69.0 % [facility] Lymphocytes 8.6 (L) 25.0 - 45.0 % [facility] Monocytes 6.1 0.0 - 10.0 % [facility] Eosinophils 0.2 0.0 - 5.0 % [facility] Basophils 0.1 0.0 - 1.0 % [facility] Immature granulocytes 1.2 0.0 - 1.0 % [facility] (H)Comment: HOSPITAL "Immature granulocytes" (promyelocytes , myelocytes, metamyelocytes ) Specimen Blood Performing Organization Address City/State/Zipcode Phone Number [facility] DEPARTMENT OF PATHOLOGY AND [address] [place] [address] GENOMIC MEDICINE [address] [address] Estimated GFR (06/15/2018 4:00 AM CDT)Only the most recent of7 resultswithin the time period is included. Estimated GFR 62 mL/min/1.73 [facility] Comment: m2 HOSPITAL CatergoryUnitsInterpretation G1 >=90 Normal or high G2 60-89Mildly decreased K6e79-66Zcmvht to moderately decreased C9s33-17Txwpwwqhka to severely decreased G4 15-29Severely decreased G5 <15Kidney failure The eGFR was calculated using the Chronic Kidney Disease Epidemiology Collaboration (CKD-EPI) equation. Interpretation is based on recommendations of the National Kidney Foundation-Kidney Disease Outcomes Quality Initiative (NKF-KDOQI) published in 2014. Specimen Plasma specimen Performing Organization Address City/[facility] Phone Number [facility] DEPARTMENT OF PATHOLOGY AND [address] [place] [phone] Basic metabolic panel (06/15/2018 4:00 AM CDT)Only the most recent of6 resultswithin the time period is included. Sodium 138 135 - 148 mEq/L [facility] Potassium 4.5 3.5 - 5.0 mEq/L [facility] Chloride 105 98 - 112 mEq/L [facility] CO2 22 (L) 24 - 31 mEq/L [facility] Anion gap 11@ANIO 7 - 15 mEq/L [facility] BUN 26 (H) 8 - 23 mg/dL [facility] Creatinine 0.87 0.50 - 0.90 mg/dL [facility] Glucose 202 (H) 65 - 99 mg/dL [facility] Calcium 8.4 (L) 8.8 - 10.2 mg/dL [facility] Specimen Plasma specimen Performing Organization Address City/[facility] Phone Number [facility] DEPARTMENT OF PATHOLOGY AND [address] [place] [phone] Anti Xa, unfractionated (06/14/2018 5:30 PM CDT)Only the most recent of2 resultswithin the time period is included. Anti Xa, 0.45Comment: 0.30 - 0.70 [place] unfractionated Therapeutic Range: U/mL [facility] 0.30 - 0.70 U/mL HOSPITAL Specimen Blood Performing Organization Address City/[facility]/Zipcode Phone Number [facility] DEPARTMENT OF PATHOLOGY AND [address] [place] [address] Angiogram Pe Chest (06/14/2018 2:59 AM [...] understanding. 2. Lungs without acute airspace consolidation. [facility]-[id number] Procedure Note [facility], Radiology Results Incoming - 06/14/2018 3:13 AM [...] understanding. 2. Lungs without acute airspace consolidation. [facility]-[id number] Performing Organization Address City/State/Zipcode Phone Number [facility] [address] duplex venous lower extremity (06/14/2018 2:30 AM CDT) Specimen Narrative Performed At [facility] Vascular Ultrasound Laboratory Lower Extremity Venous Report [address] [place] [address] Pat.Name:DIANNE JUÁREZ Pat.ID:[id number] .Date: 06/14/2018 Refer.MD:PHYSICIAN, EMERGENCY, Exam Time: 1:44:00 AMStudy Type:LE Venous DOBAge:1935,83Y Sex: FEMALE Sonogrphr: Sharon Iqbal RVNieves. Stat.:[facility]: , CPT - 4: 16054 Echo Event ID:[id number] Order ID:[id number] Reason for Study:Worsening bilateral leg pain X [...] Ultrasound Laboratory Lower Extremity Venous Report [address] [place] [address] Pat.Name: DIANNE JUÁREZ.ID: [id number] .Date: 06/14/2018 Refer.MD: PHYSICIAN, EMERGENCY, MD Exam Time: 1:44:00 AM Study Type:LE Venous Age: 2 1935,83Y Sex: FEMALE Sonogrphr: Sharon Iqbal RVT Pat. Stat.:Outpatient Room: [address] Vol: RF, CPT - 4: 39012 Echo Event ID:[id number] Order ID: [id number] Reason for Study:Worsening bilateral leg pain X [...] RPVI Performing Organization Address City/State/Zipcode Phone Number [facility] [address] [place] [address] duplex arterial lower extremity (06/14/2018 12:11 AM CDT) Specimen Narrative Performed At [facility] Vascular Ultrasound Laboratory Lower Extremity Arterial Duplex Report [address] [address] Pat.Name:DIANNE JUÁREZ Letty.ID:[id number] .Date: 06/13/2018 Refer.MD:PHYSICIAN, EMERGENCY, Exam Time: 10:53:00 PM Study Type:LE Arterial DOBAge:1935,83Y Sex: FEMALE Sonogrphr: Sharon Iqbal RVTPat. Stat.:[facility]: RF, CPT - 4: 28503 Echo Event ID:[id number] Order ID:[id number] Reason for Study:Worsening bilateral leg pain X [...] ANKLE/BRACHIAL INDEX: RIGHTLEFT Brachial Artery Pressure * duBq437 mmHg DP141 niAd457huCf PT154 kpVq057 mmHg IVETTE DP1.051.01 IVETTE PT1.151.19 TOE/BRACHIAL INDEX: [...] (alongside medial calf) obstruction. MEASUREMENTS: DOPPLER Right STEVEDORING SUPERVISOR prox STEVEDORING SUPERVISOR prox PSV75.7 cm/s Right Profunda Profunda PSV60.3 cm/s Right SFA Dist SFA Dist PSV90.3 cm/s Right SFA Mid SFA Mid OOX152 cm/s Right SFA Prox SFA Prox PSV 111 cm/s Right Pop Dist Pop Dist PSV 102 cm/s Right Pop Prox Pop Prox PSV87.1 cm/s Right BUFFING TURNER AND COUNTER Dist BUFFING TURNER AND COUNTER Dist PSV 132 cm/s Right BUFFING TURNER AND COUNTER Mid BUFFING TURNER AND COUNTER Mid HGE897 cm/s Right BUFFING TURNER AND COUNTER Prox BUFFING TURNER AND COUNTER Prox PSV 118 cm/sPTA Prox PSV 118 cm/s Right Peroneal Dist Peroneal Dist P43.9 cm/s Right Peroneal Mid Peroneal Mid PS43.5 cm/s Right Peroneal Prox Peroneal Prox P42.7 cm/s Right GISELA Dist GISELA Dist PSV86.6 cm/s Right GISELA Mid GISELA Mid PSV 56 cm/s Left STEVEDORING SUPERVISOR Dist STEVEDORING SUPERVISOR Dist PSV91.8 cm/s Left SFA Dist SFA Dist PSV85.5 cm/s Left SFA Mid SFA Mid PSV 86.5 cm/s Left SFA Prox SFA Prox PSV94.4 cm/s Left Pop Dist Pop Dist PSV56.6 cm/s Left Pop Prox Pop Prox PSV46.9 cm/sPop Prox PSV46 cm/s Left BUFFING TURNER AND COUNTER Dist BUFFING TURNER AND COUNTER Dist PSV 128 cm/s Left BUFFING TURNER AND COUNTER Mid BUFFING TURNER AND COUNTER Mid DKG182 cm/s Left BUFFING TURNER AND COUNTER Prox BUFFING TURNER AND COUNTER Prox PSV92.7 cm/s Left Peroneal Dist Peroneal Dist P 104 cm/s Left Peroneal Mid Peroneal Mid PS 158 cm/s Left GISELA Dist GISELA Dist PSV32.5 cm/s Left GISELA Mid GISELA Mid PSV 23.7 cm/s Left GISELA Prox GISELA Prox PSV30.8 cm/sATA Prox PSV30 cm/s Right STEVEDORING SUPERVISOR Dist STEVEDORING SUPERVISOR Dist PSV75 cm/s Left Profunda Profunda PSV69 cm/s Right BUFFING TURNER AND COUNTER Distal BUFFING TURNER AND COUNTER Distal PSV 132 cm/s Left BUFFING TURNER AND COUNTER Distal BUFFING TURNER AND COUNTER Distal PSV 127 cm/s Right GISELA Prox GISELA Prox PSV61 cm/s Right GISELA Distal GISELA Distal PSV86 cm/s Left GISELA Distal GISELA Distal PSV32 cm/s Signed 06/14/2018 08:43 AM Lawson Garnica MD, RPVI Procedure Note Interface, Radiology Results In - 06/14/2018 8:44 AM CDT Vascular Ultrasound Laboratory Lower Extremity Arterial Duplex Report [address] [place] [address] Pat.Name: DIANNE JUÁREZ.ID: [id number] .Date: 06/13/2018 Refer.MD: PHYSICIAN, EMERGENCY, MD Exam Time: 10:53:00 PM Study Type:LE Arterial Age: 2 1935,83Y Sex: FEMALE Sonogrphr: THEO [place]. Stat.:Outpatient Room: [address] Vol: RF, CPT - 4: 83953 Echo Event ID:[id number] Order ID: [id number] Reason for Study:Worsening bilateral leg pain X [...] (alongside medial calf) obstruction. MEASUREMENTS: DOPPLER Right STEVEDORING SUPERVISOR prox STEVEDORING SUPERVISOR prox PSV 75.7 cm/s Right Profunda Profunda PSV 60.3 cm/s Right SFA Dist SFA Dist PSV 90.3 cm/s Right SFA Mid SFA Mid PSV 118 cm/s Right SFA Prox SFA Prox PSV 111 cm/s Right Pop Dist Pop Dist PSV 102 cm/s Right Pop Prox Pop Prox PSV 87.1 cm/s Right BUFFING TURNER AND COUNTER Dist BUFFING TURNER AND COUNTER Dist PSV 132 cm/s Right BUFFING TURNER AND COUNTER Mid BUFFING TURNER AND COUNTER Mid PSV 128 cm/s Right BUFFING TURNER AND COUNTER Prox BUFFING TURNER AND COUNTER Prox PSV 118 cm/s BUFFING TURNER AND COUNTER Prox PSV 118 cm/s Right Peroneal Dist Peroneal Dist P 43.9 cm/s Right Peroneal Mid Peroneal Mid PS 43.5 cm/s Right Peroneal Prox Peroneal Prox P 42.7 cm/s Right GISELA Dist GISELA Dist PSV 86.6 cm/s Right GISELA Mid GISELA Mid PSV 56 cm/s Left STEVEDORING SUPERVISOR Dist STEVEDORING SUPERVISOR Dist PSV 91.8 cm/s Left SFA Dist SFA Dist PSV 85.5 cm/s Left SFA Mid SFA Mid PSV 86.5 cm/s Left SFA Prox SFA Prox PSV 94.4 cm/s Left Pop Dist Pop Dist PSV 56.6 cm/s Left Pop Prox Pop Prox PSV 46.9 cm/s Pop Prox PSV 46 cm/s Left BUFFING TURNER AND COUNTER Dist BUFFING TURNER AND COUNTER Dist PSV 128 cm/s Left BUFFING TURNER AND COUNTER Mid BUFFING TURNER AND COUNTER Mid PSV 135 cm/s Left BUFFING TURNER AND COUNTER Prox BUFFING TURNER AND COUNTER Prox PSV 92.7 cm/s Left Peroneal Dist Peroneal Dist P 104 cm/s Left Peroneal Mid Peroneal Mid PS 158 cm/s Left GISELA Dist GISELA Dist PSV 32.5 cm/s Left GISELA Mid GISELA Mid PSV 23.7 cm/s Left GISELA Prox GISELA Prox PSV 30.8 cm/s GISELA Prox PSV 30 cm/s Right STEVEDORING SUPERVISOR Dist STEVEDORING SUPERVISOR Dist PSV 75 cm/s Left Profunda Profunda PSV 69 cm/s Right BUFFING TURNER AND COUNTER Distal BUFFING TURNER AND COUNTER Distal PSV 132 cm/s Left BUFFING TURNER AND COUNTER Distal BUFFING TURNER AND COUNTER Distal PSV 127 cm/s Right GISELA Prox GISELA Prox PSV 61 cm/s Right GISELA Distal GISELA Distal PSV 86 cm/s Left GISELA Distal GISELA Distal PSV 32 cm/s Signed 06/14/2018 08:43 AM Lawson Garnica MD, RPVI Performing Organization Address City/State/Zipcode Phone Number [facility] [address] [phone] XR Foot 3+ Vw Left (06/14/2018 12:07 AM CDT) Specimen Narrative Performed At Examination:XR FOOT 3VW LEFT RADIANT Clinical History: Foot painchronicetiol unknowninitial exam [...] bony amount identified in the left foot. [facility]-[id number] Procedure Note Hm Interface, Radiology Results Incoming - 06/14/2018 12:19 [...] bony amount identified in the left foot. [facility]-[id number] Performing Organization Address [facility] Phone Number [facility] [address] [place] [address] XR Chest 1 Vw Portable (06/14/2018 12:07 AM CDT)Only the most recent of2 resultswithin the time period is included. Specimen Narrative Performed At EXAMINATION:XR CHEST 1 VW PORTABLE [facility] CLINICAL HISTORY: dyspnea COMPARISON:12/24/2017 IMPRESSION: No radiographic evidence for acute cardiopulmonary process. Cardiomediastinal silhouette is magnified on this AP projection and at the upper limits of normal/mildly enlarged. Aorta is tortuous. No focal or confluent airspace consolidation is seen on this single AP plane to suggest acute pneumonia. No sizable pleural effusion. No pneumothorax identified. No acute osseous abnormalities are visualized. [facility]-[id number] Procedure Note Hm Interface, Radiology Results Incoming [...] identified. No acute osseous abnormalities are visualized. [facility]-[id number] Performing Organization Address [facility] Phone Number [facility] [address] [place] [address] ECG ED Preliminary Interpretation - Not an Order (06/13/2018 9:46 PM CDT) Narrative Performed At Derrek Valenzuela MD 06/15/20187:15 PM ECG ED Preliminary Interpretation - Not an Order Performed by: Derrek Valenzuela MD Authorized by: Derrek Valenzuela MD ECG reviewed by ED Physician in the absence of a commercial green building designer: yes Interpretation: Interpretation: abnormal Rate: ECG rate:61 ECG rate assessment: normal Rhythm: Rhythm: atrial fibrillation Ectopy: Ectopy: none QRS: QRS axis:Left QRS intervals:Normal Conduction: Conduction: normal ST segments: ST segments:Normal T waves: T waves: normal ECG 12 lead (06/13/2018 8:19 PM CDT) Pathologist [facility] Ventricular rate 61 [facility] MUSE Atrial rate 67 [facility] MUSE QRSD interval 88 [facility] MUSE QT interval 418 [facility] MUSE QTC interval 420 [facility] MUSE QRS axis 1 -22 [facility] MUSE T wave axis 24 [facility] MUSE EKG impression Undetermined rhythm-Cannot rule out Anterior infarct (cited on or before 27-NOV-2013)-Abnormal ECG-In automated comparison with ECG of 2013 16:16,-Current undetermined rhythm precludes rhythm com [facility] MUSE parison, needs review- Specimen Narrative Performed At Performing Organization Address City/[facility]/Zipcode Phone Number [facility] [address] [place] [address] Partial thromboplastin time, activated (06/13/2018 8:14 PM CDT)Only the most recent of2 resultswithin the time period is included. [facility] PTT 25.4 23.0 - 36.0 [facility] Comment: [facility] PTT therapeutic range for unfractionated heparin is 61.0-112.0 seconds which corresponds to Anti-Xa 0.3-0.7 U/ml. Specimen Blood Performing Organization Address City/State/Zipcode Phone Number [facility] DEPARTMENT OF PATHOLOGY AND [address] [place] [address] GENOMIC MEDICINE [facility] [address] [place] [address] Prothrombin time with INR (06/13/2018 8:14 PM CDT)Only the most recent of2 resultswithin the time period is included. [facility] Prothrombin time 13.5 11.5 - 14.5 [facility] INR 1.1 [place] Comment: FAITH [facility] International Normalized Ratio (INR) is a therapeutic HOSPITAL monitoring tool for patients who are stable on oral anticoagulant therapy. An INR of 2.0-3.0 is suggested for deep vein thrombosis/pulmonary embolism. Specimen Blood Performing Organization Address City/[facility]/Zipcode Phone Number [facility] DEPARTMENT OF PATHOLOGY AND [address] [place] [address] [address] Comprehensive metabolic panel (06/13/2018 8:14 PM CDT) Sodium 139 135 - 148 [facility] mEq/L [facility] Potassium 5.0 3.5 - 5.0 [facility] mEq/L [facility] Chloride 103 98 - 112 mEq/L [facility] CO2 23 (L) 24 - 31 mEq/L [facility] Anion gap 13@ANIO 7 - 15 mEq/L [facility] BUN 40 (H) 8 - 23 mg/dL [facility] Creatinine 1.02 (H) 0.50 - 0.90 [facility] mg/dL [facility] Glucose 294 (H) 65 - 99 mg/dL [facility] Calcium 8.9 8.8 - 10.2 [facility] mg/dL [facility] Protein 6.2 (L) 6.3 - 8.3 g/dL [facility] Comment: HOSPITAL [place] 4.6-7.0 g/dL 1 week 4.4-7.6 g/dL 7 months-1year5.1-7.3 g/dL 1-2 years5.6-7.5 g/dL >3 years6.0-8.0 g/dL 18-150 6.3-8.3 g/dL Albumin 3.3 (L) 3.5 - 5.0 g/dL [facility] A/G ratio 1.1 0.7 - 3.8 [facility] Alkaline phosphatase 114 (H) 35 - 104 U/L [facility] AST 20 10 - 35 U/L [facility] ALT 28 5 - 50 U/L [facility] Total bilirubin 0.4 0.0 - 1.2 [facility] mg/dL HOSPITAL Specimen Plasma specimen Performing Organization Address City/State/Zipcode Phone Number [facility] DEPARTMENT OF PATHOLOGY AND [address] [place] [address] [facility] [address] [place] [address] Echocardiogram 2d limited (12/25/2017 9:15 AM CDT) Specimen Narrative Performed At [facility] Echocardiography Report [address] [address] Pat.Name:DIANNE JUÁREZ Pat.ID:[id number] .Date: 12/25/2017Refer.MD:AAYAN PARK MD Exam Time: 8:48:00 AMStudy Type:Routine Echo Height:62inWeight: 220lb BSA: 1.99 m2 DOBAge:1935,82Y Sex: FEMALEBP:105/73 HR:74 bpmSonogrphr: Radha Bernstein, RDCS, RVT Pat. Stat.:Inpatient Room:[address] Study Status:Final Echo Event ID:[id number] Order ID:[id number] Reason for Study:Effusion History / Clinical:Diabetes, Hyperlipidemia, [...] RAPof 10 mmHg. MEASUREMENTS: 2D Parasternal Long [place] Ao An2 cmLVPWd1.7 cm LVOT 2 cmLA Ds5.4 cm LVIDd4.2 cmIndex2.1 cm/m Ao Rtd 3.9 cm Index1.9 cm/m LVIDs2.3 cmLV Pong959.3 g(87-129) LV%fs 45 % LVM Yswkw722.8 g/m2 IVSd 1.5 cmRWT0.8 DOPPLER LVOT Stroke Vol LVOT 2 cmLVOT CO4 l/min LVOT TVI18.7 cmLVOT CI2 l/m/m2 LVOT Tm286 eskfRV60 bpm LVOT SV 58.6 ml Signed 12/25/2017 02:35 PM Meeta Jaeger M.D. Procedure Note Interface, Radiology Results In - 12/25/2017 2:35 PM CDT Echocardiography Report [address] [place] [address] Pat.Name: DIANNE JUÁREZ Pat.ID: [id number] .Date: 12/25/2017 Refer.MD: AYAAN PARK MD Exam Time: 8:48:00 AM Study Type:Routine Echo Height: 62in Weight: 220lb BSA: 1.99 m2 Age: 2 1935,82Y Sex: FEMALE BP: 105/73 HR: 74 bpm Sonogrphr: Radha Bernstein RDCS, RVT Pat. Stat.:Inpatient Room: [address] Study Status:Final Echo Event ID:[id number] Order ID: [id number] Reason for Study:Effusion History / Clinical:Diabetes, Hyperlipidemia, [...] of 10 mmHg. MEASUREMENTS: 2D Parasternal [place] Ao An 2 cm LVPWd 1.7 cm [...] Performing Organization Address City/State/Zipcode Phone Number [facility] [address] [place] [address] Magnesium level (12/25/2017 5:41 AM CDT)Only the most recent of5 resultswithin the time period is included. Magnesium 2.0 1.6 - 2.4 mg/dL [facility] DEPARTMENT OF PATHOLOGY AND GENOMIC MEDICINE Specimen Plasma specimen Performing Organization Address City/[facility] Phone Number [facility] DEPARTMENT OF PATHOLOGY AND [address] [place] [address] MEDICINE B natriuretic peptide (12/24/2017 6:23 AM CDT)Only the most recent of4 resultswithin the time period is included. BNP 151 (H) 0 - 100 pg/mL [facility] DEPARTMENT OF PATHOLOGY AND GENOMIC MEDICINE Specimen Blood Performing Organization Address [facility] Phone Number [facility] DEPARTMENT OF PATHOLOGY AND [address] [place] [address] MEDICINE Echocardiogram complete w contrast and 3D if needed (12/23/2017 4:08 PM CDT) Specimen Narrative Performed At [facility] Echocardiography Report [address] [place] [address] Pat.Name:DIANNE JUÁREZ Pat.ID:[id number] .Date: 12/23/2017Refer.MD:AYAAN PARK MD Exam Time: 3:24:00 PMStudy Type:Routine Echo Height:62inBSA: 2.01 m2 DOBAge:1935,82Y Sex: FEMALE BP:114/67HR: 86 bpm Sonogrphr: SHAKEEL Easley Pat. Stat.:Inpatient Room:[address] Study Status:Final Echo Event ID:[id number] Order ID:[id number] Reason for Study:Effusion History / Clinical:Diabetes, Hyperlipidemia, [...] meanRAP of5-10 mmHg. MEASUREMENTS: 2D Parasternal [place] LVIDd4.3 cmIndex2.1 cm/m LA Ds5.4 cm LVIDs2.8 cmAo Rtd 3.7 cm Index1.8 cm/m LV%fs 35.4 % LV Qssr866.7 g(87-129) IVSd 1 cmLVM Index 88.9 g/m2 LVPWd1.3 cmRWT0.6 LA Sng Plane LA Area 30.1 cm2(8.8-23.4) LA Vol 119.1 ml Index59.3 ml/m LA LngAx 6.3 cm Signed 12/23/2017 05:14 PM Nick Umana M.D. Procedure Note Interface, Radiology Results In - 12/23/2017 5:16 PM CDT Echocardiography Report [address] [address] [facility].Name: DIANNE JUÁREZ.ID: [id number] .Date: 12/23/2017 Refer.MD: AYAAN PARK MD Exam Time: 3:24:00 PM Study Type:Routine Echo Height: 62in BSA: 2.01 m2 Age: 2 1935,82Y Sex: FEMALE BP: 114/67 HR: 86 bpm Sonogrphr: SHAKEEL Easley Pat. Stat.:Inpatient Room: [address] Study Status:Final Echo Event ID:[id number] Order ID: [id number] Reason for Study:Effusion History / Clinical:Diabetes, Hyperlipidemia, [...] of 5-10 mmHg. MEASUREMENTS: 2D Parasternal [place] LVIDd 4.3 cm Index 2.1 cm/m LA [...] PM Nick Umana M.D. Performing Organization Address City/[facility] Phone Number [facility] [address] [place] [address] Activated clotting time (12/21/2017 10:44 AM CDT)Only the most recent of3 resultswithin the time period is included. Pathologist [facility] [place] Activated clotting 113 96 - 152 sec [facility] DEPARTMENT OF time Comment: PATHOLOGY AND Meter ID: [id number] GENOMIC MEDICINE Ca[employer] Plant Worker: Gregorio Ennis Specimen Performing Organization Address City/[facility] Phone Number [facility] DEPARTMENT OF PATHOLOGY AND [address] [place] [address] GENOMIC MEDICINE Prepare RBC (12/21/2017 8:00 AM CDT) Pathologist [facility] [place] Product name Red Blood Cells [facility] DEPARTMENT OF -1, Leukored PATHOLOGY AND GENOMIC MEDICINE Unit number [id number] [facility] DEPARTMENT OF PATHOLOGY AND GENOMIC MEDICINE Product code [id number] [facility] DEPARTMENT OF PATHOLOGY AND GENOMIC MEDICINE Dispense status Returned to not [facility] DEPARTMENT OF transfused PATHOLOGY AND GENOMIC MEDICINE Blood expiration [id number] [facility] DEPARTMENT OF date PATHOLOGY AND GENOMIC MEDICINE Blood type code 7300 [facility] DEPARTMENT OF PATHOLOGY AND GENOMIC MEDICINE Blood type B POSITIVE [facility] DEPARTMENT OF PATHOLOGY AND GENOMIC MEDICINE Product name Red Blood Cells [facility] DEPARTMENT OF -1, Leukored PATHOLOGY AND GENOMIC MEDICINE Unit number [id number] [facility] DEPARTMENT OF PATHOLOGY AND GENOMIC MEDICINE Product code [id number] [facility] DEPARTMENT OF PATHOLOGY AND GENOMIC MEDICINE Dispense status Returned to not [facility] DEPARTMENT OF transfused PATHOLOGY AND GENOMIC MEDICINE Blood expiration [id number] [facility] DEPARTMENT OF date PATHOLOGY AND GENOMIC MEDICINE Blood type code 7300 [facility] DEPARTMENT OF PATHOLOGY AND GENOMIC MEDICINE Blood type B POSITIVE [facility] DEPARTMENT OF PATHOLOGY AND GENOMIC MEDICINE Product name Red Blood Cells [facility] DEPARTMENT OF -1, Leukored PATHOLOGY AND GENOMIC MEDICINE Unit number [id number] [facility] DEPARTMENT OF PATHOLOGY AND GENOMIC MEDICINE Product code [id number] [facility] DEPARTMENT OF PATHOLOGY AND GENOMIC MEDICINE Dispense status Returned to BB not [facility] DEPARTMENT OF transfused PATHOLOGY AND GENOMIC MEDICINE Blood expiration [phone] [facility] DEPARTMENT OF date PATHOLOGY AND GENOMIC MEDICINE Blood type code 7300 [facility] DEPARTMENT OF PATHOLOGY AND GENOMIC MEDICINE Blood type B POSITIVE [facility] DEPARTMENT OF PATHOLOGY AND GENOMIC MEDICINE Product name Red Blood Cells [facility] DEPARTMENT OF -1, Leukored PATHOLOGY AND GENOMIC MEDICINE Unit number [id number] [facility] DEPARTMENT OF PATHOLOGY AND GENOMIC MEDICINE Product code [id number] [facility] DEPARTMENT OF PATHOLOGY AND GENOMIC MEDICINE Dispense status Returned to BB not [facility] DEPARTMENT OF transfused PATHOLOGY AND GENOMIC MEDICINE Blood expiration [phone] [facility] DEPARTMENT OF date PATHOLOGY AND GENOMIC MEDICINE Blood type code 7300 [facility] DEPARTMENT OF PATHOLOGY AND GENOMIC MEDICINE Blood type B POSITIVE [facility] DEPARTMENT OF PATHOLOGY AND GENOMIC MEDICINE Specimen Performing Organization Address City/[facility] Phone Number [facility] DEPARTMENT OF PATHOLOGY AND [address] [place] [address] GENOMIC MEDICINE Type and screen (12/21/2017 8:00 AM CDT) ABO grouping B [facility] DEPARTMENT OF PATHOLOGY AND GENOMIC MEDICINE Rh type POS [facility] DEPARTMENT OF PATHOLOGY AND GENOMIC MEDICINE Antibody screen (gel) NEG [facility] DEPARTMENT OF PATHOLOGY AND GENOMIC MEDICINE Specimen Performing Organization Address City/[facility] Phone Number [facility] DEPARTMENT OF PATHOLOGY AND [address] [place] [address] MEDICINE Cv cta pre afib pulmonary vein mapping (11/07/2017 3:34 PM CDT) Specimen Narrative Performed At [facility] Nuclear Cardiology and Cardiac CT [address] [place] [address] CTA Chest Non-Coronary with Contrast Report Pat.Name:DIANNE JUÁREZ Pat.ID:[id number] St.Date: 11/07/2017 Refer.MD:AYAAN PARK MD Exam Time: 2:58:00 PM Study Type:CTA Chest Non-Coronary W Contrast Height:61inWeight: 214lb BSA: 1.95 m2 DOBAge:1935,82Y Sex: FEMALEBP:132/60 HR:66 bpm Nuclear Tech:ALESHIA Pulido(Tao)(CT) CPT - 4: CTA Chest non coronary 12840 Nuclear Event ID:[id number] Order ID:[id number] Reason for Study:Pre A-Fib Ablation for Pulmonary Vein Mapping Procedures:CTA Chest Non- Coronary Race:C SUMMARY: Technique: IV contrast was administered and sequential 0.[address] cuts were obtained through the chest using [facility] scanner. Post-processing and 3D reconstruction were done using the [employer] workstation. Interactive image viewing and volumetric display [...] Cardiovascular CTA Protocol and interpreted by a Manager Ambulatory.Should a more comprehensive assessment of non-cardiovascular findings be desired, please consult a radiologist.These images are available in the [facility] [employer] PACS system. Signed 11/07/2017 06:24 PM Prasad Lutz MD Procedure Note Interface, Radiology Results In - 11/07/2017 6:25 PM CDT Nuclear Cardiology and Cardiac CT [address] [place] [address] CTA Chest Non-Coronary with Contrast Report Letty.Name: DIANNE JUÁREZ.ID: [id number] .Date: 11/07/2017 Refer.MD: AYAAN PARK MD Exam Time: 2:58:00 PM Study Type:CTA Chest Non-Coronary W Contrast Height: 61in Weight: 214lb BSA: 1.95 m2 Age: 2 1935,82Y Sex: FEMALE BP: 132/60 HR: 66 bpm Nuclear Tech:ALESHIA Pulido(N)(CT) CPT - 4: CTA Chest non coronary 08454 Nuclear Event ID:[id number] Order ID: [id number] Reason for Study:Pre A-Fib Ablation for Pulmonary Vein Mapping Procedures:CTA Chest Non- Coronary Race: C SUMMARY: Technique: IV contrast was administered and sequential 0.[address] cuts were obtained through the chest using the [employer] Force CT scanner. Post-processing and 3D reconstruction were done using the [employer] workstation. Interactive image viewing and volumetric display [...] Cardiovascular CTA Protocol and interpreted by a Manager Ambulatory. Should a more comprehensive assessment of non-cardiovascular findings be desired, please consult a radiologist. These images are available in the [facility] [employer] PACS system. Signed 11/07/2017 06:24 PM Prasad Lutz MD Performing Organization Address City/State/Zipcode Phone Number [facility] [address] [place] [address] Echocardiogram transesophageal (11/07/2017 3:16 PM CDT) Specimen Narrative Performed At [facility] Transesophageal Echo Report [address], [place], [place] [address].Name:DIANNE JUÁREZ.ID:[id number] .Date: 11/07/2017 Refer.MD:AYAAN PARK MD Exam Time: 12:48:00 PM Study Type:RADHA Height:60inWeight: 214lb BSA: 1.92 m2 DOBAge:1935,82Y Sex: FEMALEBP:145/83 HR:64 bpmSonogrphr: Jevon Thakur MD Pat. Stat.:OutpatientStudy Status:Final Echo Event ID:[id number] Order ID:[id number] Reason for Study:Atrial fibrillation History / Clinical:Diabetes, Hyperlipidemia, Hypertension, Arrhythmias, Atrial Fibrillation Procedures:Transesophageal Echo with Colorflow Doppler Race:C SUMMARY: No thrombus or mass is visualized in the LA or LA appendage. FINDINGS: RADHA:The attending commercial green building designer performed the RADHA procedure and waspresent for [...] SedationASA Class: 3 Physician: Akash Akins MD Negotiations Director: Jevon Thakur MD Pre TEEBP HR Post RADHA BP HR 145/83 65539/72 62 Meds:Viscous xylocaine, Cetacaine spray to oropharynx, Versed 2 mg IV, Fentanyl 50 mcg IV Complications: None Condition: Stable MEASUREMENTS: 2D Parasternal Long [place] LVOT 1.8 cmAo Rtd 3.9 cm Ao An1.9 cm Signed 11/07/2017 05:15 PM Akash Akins MD Procedure Note Interface, Radiology Results In - 11/07/2017 5:15 PM CDT Transesophageal Echo Report [address], [place], [place] [address] Pat.Name: DIANNE JUÁREZ Pat.ID: [id number] .Date: 11/07/2017 Refer.MD: AYAAN PARK MD Exam Time: 12:48:00 PM Study Type:RADHA Height: 60in Weight: 214lb BSA: 1.92 m2 Age: 2 1935,82Y Sex: FEMALE BP: 145/83 HR: 64 bpm Sonogrphr: Jevon Thakur MD Pat. Stat.:Outpatient Study Status:Final Echo Event ID:[id number] Order ID: [id number] Reason for Study:Atrial fibrillation History / Clinical:Diabetes, Hyperlipidemia, Hypertension, Arrhythmias, Atrial Fibrillation Procedures:Transesophageal Echo with Colorflow Doppler Race: C SUMMARY: No thrombus or mass is visualized in the LA or LA appendage. FINDINGS: RADHA: The attending commercial green building designer performed the RADHA procedure and was present [...] ASA Class: 3 Physician: Akash Akins MD Negotiations Director: Jevon Thakur MD Pre RADHA BP HR Post RADHA BP HR 145/83 64 144/72 62 Meds: Viscous xylocaine, Cetacaine spray to oropharynx, Versed 2 mg IV, Fentanyl 50 mcg IV Complications: None Condition: Stable MEASUREMENTS: 2D Parasternal Long [place] LVOT 1.8 cm Ao Rtd 3.9 cm Ao An 1.9 cm Signed 11/07/2017 05:15 PM Akash Akins MD Performing Organization Address City/State/Zipcode Phone Number [facility] [address] [place] [address] after 08/29/2017 Insurance Payer Benefit Plan / Subscriber ID Effective Dates Phone Address Type Group MEDICARE MEDICARE PART A xxxxxxxxxxx 2000-Present [place], [place] Medicare AND B Advance Directives Patient has advance care planning documents on file. For more information, please contact:Kyrie [address] [place] [address]
--- OUTSIDE RECORDS SUMMARY | 2018-08-30 21:57 | XMS REPORT | Continuity of Care Document ---
:1935 Author Organization [employer] Care Team Providers Name Role Phone [employer] Unavailable Unavailable Problems Problem Status Onset Classification Date Comments Source Date Reported Unspecified 01/24/20 08/06/2018 [facility] atrial [address] [place] [address] fibrillation Center AFIB Active 01/06/[address] Anemia Active 03/24/19 Finding 03/24/[address] [facility] Hyperlipidemia Active 03/24/19 Finding 03/24/[address] [facility] Hypothyroidism Active 03/24/19 Finding 03/24/[address] [facility] Back pain, Active 03/24/19 Finding 03/24/[address] chronic [facility] Diabetic ulcer of Active 03/24/19 Finding 03/24/[address] right ankle 18 [facility] [place] Cellulitis, leg Resolved 01/26/20 Finding 03/24/[address] [facility] Dehydration Active 11/27/19 Finding 03/24/[address] [facility] UTI Active 05/15/19 Finding 03/24/[address] [facility] Vomiting Resolved 05/15/19 Finding 03/24/[address] [facility] DX:ABDOMINAL Active 06/26/19 [facility] STRESS DYSPNEA [address] [place] [address] Atrial Resolved Problem 08/06/2018 [facility] fibrillation [facility] Diabetes Resolved Problem 08/06/2018 Krista Watts [facility] High cholesterol Resolved Problem 08/06/2018 [facility] Hypertension Resolved Problem 08/06/2018 Krista Watts [facility] Thyroid1 Resolved Problem 06/29/2014 1hypo [facility] Urolithiasis Active Finding 03/24/2017 DONATO Barone Urosepsis Active Finding 03/24/[address] [facility] OTHER FORMS OF Active [facility] Medications Medication Details Route Status Patient Ordering Order Source Instructions Provider Date Lisinopril DAILY Active Katte [facility] [place] Furosemide DAILY Active [facility]17 [facility] [place] Darifenacin AT BEDTIME Active [facility] 016 [facility] [place] rivaroxaban 20 20 mg=1 Active [facility] MG Oral Tablet tab, PO, 015 Medical [Xarelto] QPM, 0 Center Refill(s) glimepiride 1 mg 1 mg=1 Active [facility] oral tablet tab, PO, 015 Medical BID, # 30 Center tab, 0 Refill(s) lisinopril 2.5 2.5 mg=1 Active [facility] mg oral tablet tab, PO, 015 Medical Daily, # Center 30 tab, 0 Refill(s) levothyroxine 150 Active [facility] 150 mcg (0.15 microgram= 015 Medical mg) oral tablet 1 tab, PO, Center Daily, # 30 tab, 0 Refill(s) simvastatin 10 10 mg=1 Active [facility] mg oral tablet tab, PO, 015 Medical Bedtime, # Center 30 tab, 0 Refill(s) solifenacin 10 mg=1 Active [facility] succinate 10 MG tab, PO, 015 Medical Oral Tablet Daily, # Center [VESICARE] 30 tab, 0 Refill(s) metoprolol 25 mg=1 Active [facility] tartrate 25 mg tab, PO, 015 Medical oral tablet BID, # 180 Center tab, 0 Refill(s) Aspirin 81 MG 81 mg=1 Active [facility] Enteric Coated tab, PO, 015 Medical Tablet Daily, # 0 Center tab, 0 Refill(s) Metoprolol TWICE Active [facility] St. Tartrate DAILY 014 [facility] [place] Rivaroxaban DAILY Active [facility] 014 [facility] [place] Clindamycin Hcl THREE Active [facility] St. TIMES A 012 [facility] [place] Glimepiride TWICE Active [facility] DAILY [facility]12 [facility] [place] Levothyroxine DAILY Active [facility] Sodium [facility]12 [facility] [place] Lisinopril DAILY Active [facility] [place] Simvastatin AT BEDTIME Active [facility] [place] Sulfamethoxazole TWICE Active [facility] /Trimethoprim DAILY 012 [facility] [place] Allergies, Adverse Reactions, Alerts Substance Category Reaction Severity Reaction Status Date Comments Source type Reported Sulfa Rash Allergy to Active [facility] (Sulfonamid Substance [facility] [place] Antibiotics ) tape Rash Mild Allergy to Active [facility] Substance [facility] [place] Adhesives Unknown Allergy to Active [facility] Substance [facility] [place] sulfa drugs Assertion Drug Active [facility] Adhesive Assertion Drug Active [facility] Immunizations No Data Provided for This Section Results Order Name Results Value Reference Date Interpretation Comments Source Range CARDIAC BNP 277 <=100 01/16 [facility] ENZYMES pg/mL /2017 [facility] CHEM PANEL Phosphorus 2.8 2.5 - 4.5 01/16 [facility] CHEM PANEL Magnesium 2.3 1.8 - 2.4 01/16 [facility] Lvl [facility] ELECTROLYT AGAP 8.1 10.0 - 01/16 [facility] ES 20.0 [facility] ELECTROLYT eGFR 45 01/16 Result [facility] Comment: The Medical eGFR is Center calculated using the CKD-EPI formula. In most young, healthy individuals the eGFR will be >90 mL/min/1.73m2 . The eGFR declines with age. An eGFR of 60-89 may be normal in some populations, particularly the elderly, for whom the CKD-EPI formula has not been extensively validated. Use of the eGFR is not recommended in the following populations:< br/>
Lydia viduals with unstable creatinine concentration s, including patients and those with serious co-morbid conditions.<b r/>
Patie nts with extremes in muscle mass or diet.

The data above are obtained from the National Kidney Disease Education Program (NKDEP) which additionally recommends that when the eGFR is used in patients with extremes of body mass index for purposes of drug dosing, the eGFR should be multiplied by the estimated BMI. ELECTROLYT Calcium Lvl 8.2 8.5 - 10.5 01/16 [facility] ELECTROLYT CO2 29 24 - 32 01/16 [facility] ELECTROLYT Chloride Lvl 107 95 - 109 01/16 [facility] ELECTROLYT Potassium 3.1 3.5 - 5.1 01/16 [facility] ES Lvl [facility] ELECTROLYT Sodium Lvl 141 135 - 145 01/16 [facility] ELECTROLYT Glucose Lvl 101 70 - 99 01/16 [facility] ELECTROLYT Creatinine 1.14 0.50 - 01/16 [facility] ES Lvl 1.40 [facility] ELECTROLYT BUN 33 7 - 22 01/16 [facility] HEMATOLOGY INR 1.09 0.85 - 01/16 [place] 1.17 [facility] HEMATOLOGY PT 14.1 12.0 - 01/16 [place] 14.7 [facility] HEMATOLOGY PTT 25.6 22.9 - 01/16 [place] 35.8 [facility] HEMATOLOGY Platelet 159 133 - 450 01/16 [facility] HEMATOLOGY MPV 9.1 7.4 - 10.4 01/16 [facility] HEMATOLOGY MCHC 33.2 32.0 - 01/16 [place] 36.0 [facility] HEMATOLOGY RDW 14.6 11.5 - 01/16 [place] 14.5 [facility] HEMATOLOGY WBC 6.5 3.7 - 10.4 01/16 [facility] HEMATOLOGY RBC 3.98 4.20 - 01/16 [place] 5.40 [facility] HEMATOLOGY Hgb 12.3 12.0 - 01/16 [place] 16.0 [facility] HEMATOLOGY MCV 92.9 80.0 - 01/16 [place] 98.0 [facility] HEMATOLOGY Hct 37.0 36.0 - 01/16 [place] 48.0 [facility] HEMATOLOGY MCH 30.8 27.0 - 01/16 [place] 31.0 [facility] HEMATOLOGY Lymphocytes 1.5 1.0 - 5.5 01/16 [place] # /2017 [facility] HEMATOLOGY Segs 62.9 45.0 - 01/16 [place] 75.0 [facility] HEMATOLOGY Lymphocytes 23.2 20.0 - 01/16 [place] 40.0 [facility] HEMATOLOGY Neutrophils 4.1 1.5 - 8.1 01/16 [facility] # /2018 [facility] HEMATOLOGY Monocytes # 0.8 0.0 - 0.8 01/16 [facility] HEMATOLOGY Basophils 0.5 0.0 - 1.0 01/16 /2017 [facility] HEMATOLOGY Eosinophils 0.1 0.0 - 0.5 01/16 [facility] # /2018 [facility] HEMATOLOGY Monocytes 12.0 2.0 - 12.0 01/16 [facility] HEMATOLOGY Eosinophils 1.4 0.0 - 4.0 01/16 [facility]2017 [facility] Laboratory Hemoglobin 9.7 12.0 - 03/24 [facility] [address] Studies 15.0 [facility] Laboratory Hematocrit 30.7 36.0 - 03/24 [facility] [address] Studies 45.0 [facility] [place] Laboratory Iron Level 7.0 28 - 170 03/23 [facility] [address] Studies [facility] [place] Laboratory Bedside 145 65 - 120 03/23 [facility] [address] Studies Glucose [facility] [place] Laboratory Hemoglobin 6.6 4 - 6.0 03/23 [facility] [address] Studies A1c [facility] [place] Laboratory White Blood 6.5 4.3 - 10.9 03/23 [facility] [address] Studies Count /2017 [facility] [place] Laboratory Red Cell 18.0 12.1 - 03/23 [facility] [address] Studies Distribution 15.2 [facility] Width [place] Laboratory Red Blood 3.47 3.86 - 03/23 [facility] [address] Studies Count 4.86 [facility] [place] Laboratory Platelet 275 152 - 406 03/23 [facility] [address] Studies Count [facility] [place] Laboratory Neutrophils 67.6 41.7 - 03/23 [facility] [address] Studies % 73.7 /2017 [facility] [place] Laboratory Monocytes % 12.8 3.3 - 12.3 03/23 [facility] [address] Studies /2018 [facility] [place] Laboratory Mean 8.4 7.6 - 11.3 03/23 [facility] [address] Studies Platelet [facility] Volume [place] Laboratory Mean 71.6 80 - 100 03/23 [facility] [address] Studies Corpuscular /2017 [facility] Volume [place] Laboratory Mean 30.8 32.0 - 03/23 St. Studies Corpuscular 36.0 /2017 [facility] Hemoglobin [place] Concent Laboratory Mean 22.1 27.0 - 03/23. Studies Corpuscular 35.0 [facility] - Hemoglobin [place] Laboratory Lymphocytes 18.0 15.3 - 03/23 St. Studies % 44.8 /2017 [facility] [place] Laboratory Eosinophils 1.2 0 - 4.4 03/23 St. Studies % /2017 [facility] [place] Laboratory Basophils % 0.4 0 - 1.3 03/23 St. Studies /2017 [facility] [place] Laboratory Absolute 4.4 1.8 - 8.0 03/23 St. Studies Neutrophil /2017 [facility] [place] Laboratory Absolute 0.8 0.1 - 1.3 03/23 . Studies Monocytes [facility] - (CBC) [place] Laboratory Absolute 1.2 0.7 - 4.9 03/23 St. Studies Lymphocytes [facility] (CBC) [place] Laboratory Absolute 0.1 0 - 0.5 03/23 St. Studies Eosinophils [facility] (CBC) [place] Laboratory Absolute 0.0 0 - 0.5 03/23 [facility] [address] Studies Basophils [facility] (CBC) [place] Laboratory Sodium Level 141 135 - 145 03/23. [facility] [place] Laboratory Serum Total 5.5 6.0 - 8.3 03/23 [facility] . Studies Protein /2017 [facility] [place] Laboratory Prealbumin 14.7 18 - 38 03/23 [facility] [address] Studies /2017 [facility] [place] Laboratory Potassium 4.4 3.6 - 5.0 03/23 [facility] [address] Studies Level /2017 [facility] [place] Laboratory Glucose 106 65 - 120 03/23 [facility] [address] Studies Level /2017 [facility] [place] Laboratory Estimat 72 90 03/23 [facility]. Studies Glomerular /2017 [facility] Filtration [place] Rate Laboratory Creatinine 0.77 0.44 - 03/23 [facility] [address] Studies 1. [facility] [place] Laboratory Chloride 106 101 - 111 03/23 [facility] . Studies Level /2017 [facility] [place] Laboratory Carbon 29 21 - 31 03/[address] Studies Dioxide [facility] - Level [place] Laboratory Calcium 9.0 8.5 - 10.5 03/23 [facility] [address] Studies Level /2017 [facility] [place] Laboratory Blood Urea 18 6 - 20 03/23 [facility] [address] Studies Nitrogen [facility] [place] Laboratory Albumin 3.5 3.2 - 5.5 03/23 [facility]. Studies [facility] [place] Laboratory Segmented 86 40 - 80 01/30 [facility]. Studies Neutrophils [facility] [place] Laboratory Rouleau Rouleau 01/30 [facility] St[address] Studies [facility] [place] Laboratory Polychromasi Polychroma 01/30 [facility]. Studies a iglesia [facility] [place] Laboratory Ovalocytes Ovalocytes 01/30 [facility]. Studies [facility] [place] Laboratory Monocytes 3 0 - 10 01/30 [facility]. Studies [facility] [place] Laboratory Lymphocytes 11 15 - 42 01/30 [facility]. Studies [facility] [place] Laboratory Hypersegment Hypersegme 01/30 [facility]. Studies ed nted [facility] - Neutrophils Neutrophil [place] [facility] Laboratory Blood Blood 01/30 [facility]. Studies Morphology Morphology [facility] - Comment Comment [place] Laboratory Anisocytosis Anisocytos 01/30 [facility]. Studies is [facility] Antibody Negative 06/26 [facility] RESULTS Scrn (06/26/14 5:48 AM) [facility] BLOOD BANK ABO/Rh B POS 06/26 [facility] RESULTS /2014 [facility] CHEM PANEL Magnesium 2.0 1.8 - 2.4 06/26 [facility] Lvl /2014 [facility] ELECTROLYT AGAP 13.8 10.0 - 06/26 [facility] ES 20.0 [facility] ELECTROLYT eGFR 70 06/26 <sup>1</sup>R [facility] ES esult Medical Comment: The Center eGFR is calculated using the CKD-EPI formula. In most young, healthy individuals the eGFR will be >90 mL/min/1.73m2 . The eGFR declines with age. An eGFR of 60-89 may be normal in some populations, particularly the elderly, for whom the CKD-EPI formula has not been extensively validated. Use of the eGFR is not recommended in the following populations:& lt;br/>
I ndividuals with unstable creatinine concentration s, including patients and those with serious co-morbid conditions.<b r/>
Patie nts with extremes in muscle mass or diet.

The data above are obtained from the National Kidney Disease Education Program (NKDEP) which additionally recommends that when the eGFR is used in patients with extremes of body mass index for purposes of drug dosing, the eGFR should be multiplied by the estimated BMI. ELECTROLYT Calcium Lvl 8.8 8.5 - 10.5 06/26 [facility] /2014 [facility] ELECTROLYT Chloride Lvl 105 95 - 109 06/26 [facility] /2014 [facility] ELECTROLYT CO2 26 24 - 32 06/26 [facility] 2014 [facility] ELECTROLYT Potassium 3.8 3.5 - 5.1 06/26 [facility] ELECTROLYT Sodium Lvl 141 135 - 145 06/26 [facility] /2014 [facility] ELECTROLYT Creatinine 0.8 0.5 - 1.4 06/26 [facility] ELECTROLYT BUN 16 7 - 22 06/26 [facility] /2014 [facility] ELECTROLYT Glucose Lvl 143 70 - 99 06/26 <sup>2</sup>I [facility] nterpretive Medical Data: Adult Center reference range values reflect the clinical guidelines
of the [place] [employer]. HEMATOLOGY Eosinophils 1.7 0.0 - 4.0 06/26 /2014 [facility] HEMATOLOGY Basophils 0.5 0.0 - 1.0 06/26 /2014 [facility] HEMATOLOGY Lymphocytes 20.0 20.0 - 06/26 [place] 40.0 /2014 [facility] HEMATOLOGY Monocytes 11.3 2.0 - 12.0 06/26 /2014 [facility] HEMATOLOGY Segs 66.5 45.0 - 06/26 [place] 75.0 /2014 [facility] HEMATOLOGY Eosinophils 0.1 0.0 - 0.5 06/26 [facility] # /2014 [facility] HEMATOLOGY Segs-Bands # 4.7 1.5 - 8.1 06/26 /2014 [facility] HEMATOLOGY Lymphocytes 1.4 1.0 - 5.5 06/26 [facility] # /2014 [facility] HEMATOLOGY Monocytes # 0.8 0.0 - 0.8 06/26 [facility] HEMATOLOGY INR 1.08 0.85 - 06/26 <sup>4</sup>I [facility] 1.17 /2014 nterpretive Medical Data: Center RECOMMENDED RANGES FOR PROTIME INR:
2.0-3.0 for most medical and surgical thromboemboli c states.
2.5-3.5 for artificial heart valves and recurrent embolism.<br/ >
INR SHOULD BE USED ONLY FOR PATIENTS ON STABLE ANTICOAGULANT THERAPY. HEMATOLOGY PT 14.1 12.0 - 06/26 14.7 [facility] HEMATOLOGY PTT 30.5 22.9 - 06/26 <sup>5</sup>I [facility] 35.8 /2014 nterpretive Medical Data: [facility] Center Therapeutic Range: 57 - 92 Seconds HEMATOLOGY MPV 9.1 7.4 - 10.4 06/26 [facility] HEMATOLOGY MCH 29.5 27.0 - 06/26 31.0 [facility] HEMATOLOGY MCV 89.3 80.0 - 06/26 [facility] 98.0 [facility] HEMATOLOGY Platelet 195 133 - 450 06/26 [facility] HEMATOLOGY RDW 15.5 11.5 - 06/26 14.5 [facility] HEMATOLOGY MCHC 33.0 32.0 - 06/26 36.0 /2014 [facility] HEMATOLOGY WBC 7.1 3.7 - 10.4 06/26 [facility] HEMATOLOGY Hgb 12.7 12.0 - 06/26 16.0 /2014 [facility] HEMATOLOGY RBC 4.30 4.20 - 06/26 5.40 [facility] HEMATOLOGY Hct 38.4 36.0 - 06/26 48.0 /2014 [facility] LIPIDS CHD Risk 6.12 3.90 - 06/26 5.80 [facility] LIPIDS VLDL 77 06/26 [facility] LIPIDS LDL 51 <=99 mg/dL 06/26 [facility] (Calculated) [facility] LIPIDS HDL 25 >=61 mg/dL 06/26 [facility] LIPIDS Trig 386 <=149 06/26 [facility] mg/dL [facility] LIPIDS Chol 153 <=199 06/26 <sup>3</sup>R mg/dL esult Medical Comment: Center Specimen Slightly Hemolyzed. Pathology Reports No Data Provided for This Section Diagnostic Reports No Data Provided for This Section Consultation Notes No Data Provided for This Section Discharge Summaries No Data Provided for This Section History and Physicals No Data Provided for This Section Vital Signs Vital Sign Value Date Comments Source Systolic (mm Hg) 124 01/16/2018 [facility] Diastolic (mm Hg) 61 01/16/2018 [facility] Respitory Rate 22 01/16/2018 [facility] Systolic (mm Hg) 131 01/16/2018 [facility] Diastolic (mm Hg) 64 01/16/2018 [facility] Respitory Rate 15 01/16/2018 [facility] Systolic (mm Hg) 154 01/16/2018 [facility] Diastolic (mm Hg) 81 01/16/2018 [facility] Respitory Rate 18 01/16/2018 [facility] Temperature Oral (F) 97.5 F 01/16/2018 [facility] Height 157.48 cm 01/16/2018 [facility] Weight 96.818 01/16/2018 [facility] BMI Calculated 39.04 01/16/2018 [facility] Heart Rate 59 03/24/[address] [facility] Systolic (mm Hg) 134 03/24/[address] [facility] Diastolic (mm Hg) 69 03/24/[address] [facility] Temperature Oral (F) 97.6 F 03/24/[address] [facility] [place] Respitory Rate 18 03/24/[address] [facility] Height 62 03/23/[address] [facility] Weight 225 03/23/[address] [facility] Systolic (mm Hg) 161 06/26/2014 [facility] Diastolic (mm Hg) 71 06/26/2014 [facility] Systolic (mm Hg) 147 06/26/2014 [facility] Diastolic (mm Hg) 71 06/26/2014 [facility] Respitory Rate 16 06/26/2014 [facility] Systolic (mm Hg) 131 06/26/2014 [facility] Diastolic (mm Hg) 62 06/26/2014 [facility] Respitory Rate 16 06/26/2014 [facility] Respitory Rate 16 06/26/2014 [facility] Weight 109.545 06/26/2014 [facility] Height 157.48 cm 06/26/2014 [facility] BMI Calculated 44.17 06/26/2014 [facility] Temperature Oral (F) 97.7 F 06/26/2014 [facility] Encounters Location Location Encounter Encounter Reason Attending ADM DC Status Source Details Type Number For Provider Date Date Visit [facility] [id number] Ayaan 06/26 06/26 [facility] Outpatient Ricardo /2014 [facility] Reg[facility] [id number] 12/[address] [facility] Ref[facility]2016 [facility] [place] [facility] Reg[facility] [id number] 01/[address] [facility] Ref[facility] [place] [facility] Departed [id number] 02/06 02/[address] [facility] Surgical /2016 [facility] [place] [facility] Registered [id number] 03[facility] [facility] Recurring /2017 [facility] [place] [facility] Discharged [id number] 03/23 03/[address] [facility] Inpatient /2017 [facility] [place] [facility] [facility] Outpatient [id number] Ayaan 01/16 01/17 [facility] /2017 [facility] Procedures Procedure Code Date Perfomer Comments Source Anaerobic Blood 03/23/[address] [facility] [place] Aerobic Blood 03/23/[address] [facility] [place] OCCLUSION OF [id number] 02/06/2017 [facility] StByron Packer - LOWER VEIN, OPEN [place] APPROACH TRANSFER RIGHT [id number] 02/06/2017 DONATO Burris - LOWER LEG SKIN, [place] EXTERNAL APPROACH VASCULAR SURGERY [id number] 02/06/2017 DONATO Burris - PROCEDURE [place] Back [id number] back surgery [facility]<sup>1</sup> with shaved Center off spur Carpal tunnel [id number] [facility] Gallbladder [id number] [facility] Kidney stone [id number] [facility] Knee replacement [id number] [facility] Assessment and Plan No Data Provided for This Section Plan of Care Plan of Care Date Source Instructions 03/24/[address] [facility] [place] Anemia DI for High Blood Pressure Instructions 03/24/[address] [facility] [place] Anemia DI for High Blood Pressure Social History Social History Date Source Query Response Date Recorded Comment 03/24/2017 [facility] [place] Alcohol Use? No January 25, 2016 1:28pm CD- Drugs? No January 25, 2016 1:28pm Social History TypeResponse 06/26/2014 [facility] Alcohol Never Smoking Status Never smoker; Exposure to Tobacco Smoke None; Cigarette Smoking Last 365 Days No; Reg Smoking Cessation Counseling No entered on: 01/16/18 Family History Value Date Source Query Response Instance Date Recorded Comment 03/24/2017 [facility] [place] Medical History Hypertension Diabetes Cancer Mother January 25, 2016 1:28pm Medical History Hypertension Diabetes Cancer May 14, 2015 4:35pm Advance Directives Order Name Results Value Date Source Advance Directives Advance Directives Advance Directive Response Recorded Date/Time 03/24/2017 DONATO Rodriguezjoann - Does Patient Have Living Will Jake No February 01, 2016 6:00pm Durable Power of Antichecking [employer] Work[employer] for Health Care No January 25, 2016 1:28pm Functional Status No Data Provided for This Section
--- OUTSIDE RECORDS SUMMARY | 2018-08-30 21:58 | XMS REPORT | Summary of Care ---
:1935 Author Name NELI SWAN M.D. Address [address] [place] [address] Care Team Providers Name Role Phone NELI SWAN M.D. 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 Diabetic polyneuropathy (250.60, E11.42) Status: Active Vitamin B12 deficiency (266.2, E53.8) Status: Active Pernicious anemia (281.0, D51.0) Status: Active Post procedure discomfort (338.18, G89.18) Status: Active Swelling (782.3, R60.9) Status: Active Arm pain (729.5, M79.603) Status: Active Medications Name Dates Details Cyanocobalamin 1000 MCG/ML Injection Solution Inject 1 mL daily x 1 wk, then 1 mL weekly x 4 wks, then 1 mL monthly x 1 month Quantity: 12 Refills: 0 BENY Luu, NELI Start : 24-Aug-2018 Active Allergies and Adverse Reactions Name Dates Details sulfa (Allergy) Status: Active Procedures Procedure Dates Details [[facility]] VITAMIN B12 Date: 23-Aug-2018 [QLH] VITAMIN B1, WHOLE BLOOD Date: 23-Aug-2018 [QLH] VITAMIN B6 Date: 23-Aug-2018 [QLH] COPPER Date: 23-Aug-2018 [QLH] FOLATE, SERUM Date: 23-Aug-2018 [QLH] Zinc Lvl Date: 23-Aug-2018 [QLH] SHARI PANEL, COMPREHENSIVE Date: 23-Aug-2018 [QLH] HEMOGLOBIN A1c Date: 23-Aug-2018 [QLH] IRON, TOTAL Date: 23-Aug-2018 [QLH] METHYLMALONIC ACID Date: 23-Aug-2018 [QLH] SED RATE BY MODIFIED WESTERGREN Date: 23-Aug-2018 [QLH] SJOGRENS ANTIBODIES (SS-A,SS-B) Date: 23-Aug-2018 [QLH] RHEUMATOID FACTOR Date: 23-Aug-2018 [QLH] C-REACTIVE PROTEIN Date: 23-Aug-2018 [QLH] CREATINE KINASE, TOTAL Date: 23-Aug-2018 [QLH] CBC (INCLUDES DIFF/PLT) Date: 23-Aug-2018 [QLH] T4, TOTAL (THYROXINE) Date: 23-Aug-2018 [QLH] TSH, 3RD GENERATION W/REFLEX TO FT4 Date: 23-Aug-2018 [QLH] VITAMIN E (TOCOPHEROL) Date: 23-Aug-2018 [QLH] VITAMIN D, 25-HYDROXY, LC/MS/MS Date: 23-Aug-2018 [QL] IMMUNOFIXATION, SERUM Date: 23-Aug-2018 [QL] IMMUNOFIXATION, URINE Date: 23-Aug-2018 [QLH] CMP W/EGFR Date: 23-Aug-2018 [QL] PARANEOPLASTIC AUTOANTIBODY EVAL. S Date: 23-Aug-2018 [QLH] INTRINSIC FACTOR BLOCKING ANTIBODY Date: 24-Aug-2018 [Q] PARIETAL CELL AB W/REFL TITER Date: 24-Aug-2018 US Extremity upper (non-vascular) 70688 Date: 27-Aug-2018 Immunization Name Dates Details Immunizations not documented Social History Name Dates Details Unknown if ever smoked Vital Signs Date Test Result Details [id number] BP Systolic 120 mm[Hg] Status: Comments: Location: LUE; Position: Sitting BP Diastolic 52 mm[Hg] Status: Comments: Location: LUE; Position: Sitting Height 62 in Status: Weight 212 lb Status: Body Mass Index Calculated 38.78 kg/m2 Status: Body Surface Area Calculated 1.96 m2 Status: Temperature 97.2 f Status: Comments: Method: Oral Heart Rate 61 /min Status: Comments: Location: Apical; Results Date Description Value Details [id number] [QLH] HEMOGLOBIN A1c Hemoglobin A1c 9.0 % (Above high threshold) Range: <=5.6 [id number] [QLH] VITAMIN D, 25-HYDROXY, LC/MS/MS Vitamin D, 25-OH, Total 33.8 ng/ml Range: 30.0-100.0 Comments: Reference range is based on recommendations in the [employer] Clinical Practice Guideline (J Clin Endocrinol Jrccw1425;96: 5060-4442) :54 [QL] FOLATE, SERUM Folate Level 30.4 ng/ml Range: >=3.0 :54 [QL] TSH, 3RD GENERATION W/REFLEX TO FT4 TSH 0.422 {uIU/ml} Range: 0.360-3.740 :54 [QL] VITAMIN B12 Vitamin B12 Level 108 pg/ml (Below low threshold) Range: 254-1320 [id number] [[facility]] T4, TOTAL (THYROXINE) Thyroxine 10.1 ug/dL Range: 4.7-13.3 :54 [[facility]] RHEUMATOID FACTOR Rheumatoid Factor Quantitative <10 {IU/ml} Range: 0-20 :54 [[facility]] CMP W/EGFR Sodium Level 141 {mEq/l} Range: 135-145 Potassium Level 4.5 {mEq/l} Range: 3.5-5.1 Chloride Level 105 {mEq/l} Range: 95-109 Carbon Dioxide 12 {mEq/l} (Below low Range: 24-32 threshold) AGAP 28.5 {mEq/l} (Above high Range: 10.0-20.0 threshold) Glucose Lvl 168 mg/dl (Above high Range: 70-99 threshold) Comments: Adult reference range values reflect the clinical guidelinesof the [place] [employer]. Creatinine Lvl 1.30 mg/dl Range: 0.50-1.40 Blood Urea Nitrogen 33 mg/dl (Above high Range: 7-22 threshold) BUN/Creatinine Ratio 25 Range: 6-25 Total Protein 6.7 g/dl Range: 6.4-8.4 Albumin Lvl 3.5 g/dl Range: 3.5-5.0 Comments: instrument error. repeat ALB level at 08/24/2018 10:44 by Ugo Aquino at 08/24/2018 10:44 by gucci about correction report. Faxresult [id number] from 1.0 g/dL [LOW] on 08/24/18 10:45:16 CDT by Gucci King. Globulin 3.2 g/dl Range: 2.7-4.2 Comments: instrument error. repeat ALB level at 08/24/2018 10:44 by Ugo Aquino at 08/24/2018 10:44 by gucci about correction report. Faxresult [id number] from 5.7 g/dL [HI] on 08/24/18 10:45:16 CDT by Gucci King. A/G Ratio 1.1 Range: 0.7-1.6 Comments: instrument error. repeat ALB level at 08/24/2018 10:44 by Ugo Aquino at 08/24/2018 10:44 by gucci about correction report. Faxresult [id number] from 0.2 [LOW] on 08/24/18 10:45:16 CDT by Gucci King. Calcium Level Total 9.1 mg/dl Range: 8.5-10.5 ALT 33 u/l Range: 0-65 AST 19 u/l Range: 0-37 Alk Phos 124 u/l Range: 39-136 Bili Total 0.4 mg/dl Range: 0.2-1.3 eGFR 38 {ML/MIN/1.7} Comments: The eGFR is calculated using the CKD-EPI formula. In most young, healthyindividuals the eGFR will be >90 mL/min/1.73m2. The eGFR declines with age. AneGFR of 60-89 may be normal in some populations, particularly the elderly, forwhom the CKD-EPI formula has not been extensively validated. Use of the eGFR isnot recommended in the following populations:Individuals with unstable creatinine concentratio ns, including patients and those with serious co-morbid conditions.Patients with extremes in muscle mass or diet.The data above are obtained from the National Kidney Disease Education Program(NK DEP) which additionally recommends that when the eGFR is used in patientswith extremes of body mass index for purposes of drug dosing, the eGFR shouldbe multiplied by the estimated BMI. :54 [QLH] IRON, TOTAL Iron 47 ug/dL Range: 30-160 :54 [QL] CREATINE KINASE, TOTAL Creatine Kinase 61 u/l Range: 12-191 [id number] [QLH] C-REACTIVE PROTEIN CRP <2.9 mg/L Range: <=2.9 :54 [QLH] SED RATE BY MODIFIED WESTERGREN SED RATE BY MODIFIED WESTERGREN Cancel Reason: QNS :54 [QLH] Differential Segmented Neutrophils 80.2 % (Above high threshold) Range: 45.0-75.0 Monocytes 7.5 % Range: 2.0-12.0 Lymphocytes 12.1 % (Below low threshold) Range: 20.0-40.0 Eosinophils 0.2 % Range: 0.0-4.0 Basophils 0.0 % Range: 0.0-1.0 Segs-Bands # 7.9 {K/CMM} Range: 1.5-8.1 Lymphocytes # 1.2 {K/CMM} Range: 1.0-5.5 Monocytes # 0.7 {K/CMM} Range: 0.0-0.8 Eosinophils # 0.0 {K/CMM} Range: 0.0-0.5 Basophils # 0.0 {K/CMM} Range: 0.0-0.2 :54 [QLH] CBC (INCLUDES DIFF/PLT) WBC 9.8 {K/CMM} Range: 3.7-10.4 RBC 3.54 {M/CMM} (Below low threshold) Range: 4.20-5.40 Hgb 10.9 g/dl (Below low threshold) Range: 12.0-16.0 Hct 34.5 % (Below low threshold) Range: 36.0-48.0 MCV 97.5 fL Range: 80.0-98.0 MCH 30.7 pg Range: 27.0-31.0 MCHC 31.5 g/dl (Below low threshold) Range: 32.0-36.0 RDW 17.5 % (Above high threshold) Range: 11.5-14.5 Platelet 257 {K/CMM} Range: 133-450 Mean Platelet Volume 9.7 fL Range: 7.4-10.4 :54 [QLH] SJOGRENS ANTIBODIES (SS-A,SS-B) SS-A (Ro) Antibody <0.2 {AI} Range: <=0.9 SS-b (La) Antibody <0.2 {AI} Range: <=0.9 :54 [QLH] VITAMIN B1, WHOLE BLOOD Vitamin B1 Level 109.8 nmol/L Range: 66.5-200.0 Comments: This test was developed and its performance characteristicsdetermined by [employer]. It has not been cleared orapproved by the Food and Drug Administration.Performed At: [address] [id number] Wang MD Ph:[phone] :54 [H] Vitamin E Lvl Alpha-Tocopherol 17.3 mg/L Range: 9.0-29.0 Comments: This test was developed and its performance characteristicsdetermined by [employer]. It has not been cleared orapproved by the Food and Drug Administration. Gamma-Tocopherol 1.8 mg/L Range: 0.5-4.9 Comments: This test was developed and its performance characteristicsdetermined by [employer]. It has not been cleared orapproved by the Food and Drug Administration.Reference intervals for alpha and gamma-tocophero ldetermined from National Health and Nutrition ExaminationSurvey, 2005- 2005. Individuals with alpha-tocopherol levelsless than 5.0 mg/L are considered vitamin E deficient.Performed At: [facility] [address] [id number] [place], [place] [id number] Wang MD Ph: [phone] :54 [QLH] VITAMIN B6 Vitamin B6 Level 11.2 {UG/L} Range: 2.0-32.8 Comments: This test was developed and its performance characteristicsdetermined by [employer]. It has not been cleared orapproved by the Food and Drug Administration.Performed At: [address] [id number] Wang MD Ph:[phone] :54 [QLH] Zinc Lvl Zinc Level 64 ug/dL Range: 56-134 Comments: This test was developed and its performance characteristicsdetermined by [employer]. It has not been cleared orapproved by the Food and Drug Administration. Detection Limit=5 Performed At: [address] [id number] Wagn MD Ph:[phone] :54 [QLH] SHARI PANEL, COMPREHENSIVE Antinuclear Antibody Screen Negative Range: Negative Comments: Because the SHARI was Negative, the Reflex assays for Anti-dsDNA , SM/LIF[employer] AND CRANES INSPECTOR, Martha/La (SSA/SSB) were not performed. [id number] [H] Immunofixation Eletrophoresis Urine Urine Immunofixation SEE NOTES Comments: No immunoreactivity is present in any of the lanes Electrophoresis Pattern Urine Immunofixation SEE NOTES Comments: Immunofixation electrophoresis did not detect any immunoreactivity in theexamined urine specimen. No monoclonal immunoglobulins or free kappa or lambdalight chains are identified.The EMR has been review Electrophoresis Interpretation ed for relevant history.Ihave personally reviewed the test results and concur with the resident'sinterpretation. CPT [id number] Signature Todd Lyons MD 08/27/18 14:55 PM [id number] [H] Immunofixation Eletrophoresis Immunofixation Electrophoresis SEE NOTES Comments: Diffusely staining immunoreactivity is present in the IgG, IgA, IgM, kappa, andlambda lanes in a normal polyclonal distribution. No monoclonalimmunoglobulins are detected. Pattern Immunofixation Electrophoresis SEE NOTES Comments: The serum immunofixation electrophoresis demonstrates polyclonal distributionof immunoglobulins. No monoclonal immunoglobulins are detected.The electronicmedical record has been reviewed for relevant h Interpretation istory. I have personallyreviewed the test results and concur with the resident's interpretation. CPT [id number] Signature Todd Lyons MD 08/27/18 14:43 PM [id number] [QLH] METHYLMALONIC ACID Methylmalonic Acid 7915 nmol/L (Above Range: 0-378 Quantitative high threshold) U Org Acid Disclaimer Comment Comments: This test was developed and its performance characteristicsdetermined by [employer]. It has not been cleared orapproved by the Food and Drug Administration.Performed At: [facility] ([facility]) [place] [id number] Wang MD Ph:[phone] presence of metabolites in physiological fluids depends inpart on the clinical and dietary status of the individual atthe time of specimen c ollection. A non-diagnostic test resultdoes not rule out the possibility of an underlying metabolicdisorder. Special dietary regimens and dietary supplementsmay obscure diagnostic findings. This test may miss disorderscharacterized by minimal or intermittent metabolite excretion,especially if the patient is asymptomatic at the time of samplecollection. We utilize organic solvent extraction and some metabolites are poorly extracted by this method. These include: homogentistic acid, orotic acid, oxalic acid, glycolic acid,glycerol and others. Plan of Care Name Dates Details Planned Observations Planned Goals not documented Instructions Name Dates Details Instructions not documented Encounters Appointment; NELI SWAN M.D. On: 23-Aug-2018 9:00 Encounter Diagnosis: Problem not documented Appointment; ARI BROWN M.D. On: 23-Aug-2018 9:00 Encounter Diagnosis: Problem not documented
--- NOTE | 2018-08-30 23:09 | RAD REPORT ---
EXAM DESCRIPTION: RAD - Foot Right 3 View - 08/30/2018 10:52 pm CLINICAL HISTORY: Right foot pain FINDINGS: No fracture or dislocation is seen Soft tissue calcifications are present within the ankle. Edema is present the subcutaneous tissues. Osteoporosis Prominent calcaneal spur
[2018-08-30 23:12] LABS: Absolute Lymphocytes (CBC) 1.8 K/uL (0.7-4.9); Basophils % 0.4 % (0-1.3); Eosinophils % 0.5 % (0-4.4); Hematocrit 34.8 % (36.0-45.0); Lymphocytes % 20.2 % (15.3-44.8); MPV 8.9 fL (7.6-11.3); Monocytes % 12.2 % (3.3-12.3); RBC Red Blood Cell Count 3.77 M/uL (3.86-4.86)
[2018-08-30 23:19] LABS: Protime INR 1.37
[2018-08-30 23:24] LABS: Potassium 4.2 mmol/L (3.5-5.1)
[2018-08-31 00:13] LABS: Urine Bacteria >50 /HPF (<20); Urine Culture Reflex Order REFLEXED; Urine RBC <5 /HPF (NONE SEEN)
[2018-08-31 00:15] LABS: Urine Blood TRACE (NEG); Urine Glucose NEGATIVE (NEG)
[2018-08-31 00:16] LABS: Urine Protein NEGATIVE (NEG)
[2018-08-31] MEDS ORDERED: CEFTRIAXONE/SWI 1gm 1 GM/10 ML SYR ONE (00:26)
--- NOTE | 2018-08-31 00:34 | ER ---
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 pt c/o sharp pain to ak1 right heel when ambulating. pt daughter also stated left elbow with redness and heat X1 week with intermittent pain. Transition of care: patient was not received from another setting of care. Onset of symptoms is unknown. Risk Assessment: Do you want to hurt yourself or someone else? Patient reports no desire to harm self or others. Initial Sepsis Screen: Does the patient meet any 2 criteria? No. Patient's initial sepsis screen is negative. Does the patient have a suspected source of infection? No. Patient's initial sepsis screen is negative. Care prior to arrival: None. 22:06 Method Of Arrival: Wheelchair ak1 22:06 Acuity: DOMINIQUE 3 ak1 Triage Assessment: 22:10 General: Appears in no apparent distress. Behavior is calm, cooperative. ak1 Historical: - Allergies: 22:10 Adhesives; ak1 22:10 Sulfa (Sulfonamide Antibiotics); ak1 - Home Meds: 22:10 levothyroxine 150 mcg tab 1 tab once daily [Active]; metoprolol tartrate 25 mg Oral tab ak1 1 tab 2 times per day [Active]; simvastatin 10 mg Oral tab 1 tab nightly [Active]; lisinopril 10 mg Oral tab 1 tab once daily [Active]; lisinopril 2.5 mg Oral tab 1 tab once daily [Active]; Eliquis 5 mg oral tab [Active]; Myrbetriq 50 mg oral Tb24 1 tab once daily [Active]; glimepiride 1 mg Oral tab twice daily [Active]; lansoprazole 30 mg oral cpDR 1 cap once daily [Active]; - PMHx: 22:10 Atrial Fib; Diabetes - NIDDM; Hyperlipidemia; Hypertension; Hypothyroidism; irregular ak1 heart beat; - PSHx: 22:10 Knee surgery; Cholecystectomy; BACK SURGERY; Carpal Tunnel Repair; Lithotripsy; ak1 - Immunization history:: Adult Immunizations unknown. - Social history:: Smoking status: Patient/guardian denies using tobacco. - Ebola Screening: : No symptoms or risks identified at this time. Screenin:10 Abuse screen: Denies threats or abuse. Denies injuries from another. Nutritional ak1 screening: No deficits noted. Tuberculosis screening: No symptoms or risk factors identified. Fall Risk Gait- Weak (10 pts.). Assessment: 22:18 General: Appears in no apparent distress. comfortable, Behavior is calm, cooperative, jb4 appropriate for age. Pain: Complains of pain in heel of right foot and left elbow Pain does not radiate. Pain currently is 0 out of 10 on a pain scale. 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 Neuro: Level of Consciousness is awake, alert, obeys commands, Oriented to person, place, time, situation. Cardiovascular: Patient's skin is warm and dry. Respiratory: Airway is patent Respiratory effort is even, unlabored, Respiratory pattern is regular, symmetrical. GI: No signs and/or symptoms were reported involving the gastrointestinal system. : No signs and/or symptoms were reported regarding the genitourinary system. EENT: No signs and/or symptoms were reported regarding the EENT system. Derm: Skin wounds noted to the right foot and left wrist. Skin is pink, warm \T\ dry. warm reddened areas noted to the right heel and left elbow region. Musculoskeletal: Circulation, motion, and sensation intact. 23:09 Reassessment: Patient appears in no apparent distress at this time. Patient and/or jb4 family updated on plan of care and expected duration. Pain level reassessed. Patient is alert, oriented x 3, equal unlabored respirations, skin warm/dry/pink. 08/31 00:00 Reassessment: Patient appears in no apparent distress at this time. Patient and/or jb4 family updated on plan of care and expected duration. Pain level reassessed. Patient is alert, oriented x 3, equal unlabored respirations, skin warm/dry/pink. 00:49 Reassessment: Patient appears in no apparent distress at this time. Patient and/or jb4 family updated on plan of care and expected duration. Pain level reassessed. Patient is alert, oriented x 3, equal unlabored respirations, skin warm/dry/pink. Pt wheeled out of ED in wheelchair, verbalized understanding of d/c and follow up instructions. Vital Signs: 08/30 22:06 BP 131 / 61; Pulse 79; Resp 20; Temp 98.7(O); Pulse Ox 99% ; Weight 94.35 kg; Height 5 lt1 ft. 2 in. (157.48 cm); Pain 7/10; 23:09 BP 104 / 55; Pulse 58; Resp 18; Pulse Ox 100% on R/A; jb4 08/31 00:15 BP 120 / 72; Pulse 64; Resp 18; Pulse Ox 95% on R/A; jb4 08/30 22:06 Body Mass Index 38.04 (94.35 kg, 157.48 cm) lt1 ED Course: 08/30 21:57 Patient arrived in ED. es 21:57 Darren Rudd MD is Private Physician. es 21:58 Umang Ernst, TIGRE is Primary Nurse. jb4 22:01 Tor Potts PA is PHCP. cp 22:01 Stevenson Muñoz MD is Attending Physician. cp 22:07 Triage completed. ak1 22:10 Arm band placed on Patient placed in an exam room, on a stretcher, on pulse oximetry, ak1 Patient notified of wait time. 22:10 Patient has correct armband on for positive identification. Bed in low position. Call ak1 light in reach. Side rails up X2. Adult w/ patient. Pulse ox on. NIBP on. 22:53 XRAY Foot RIGHT 3 View In Process Unspecified. EDMS 23:04 Missed attempt(s): 22 gauge in right antecubital area. lt1 23:04 Initial lab(s) drawn, by me, sent to lab. Inserted saline lock: 22 gauge in right lt1 antecubital area, using aseptic technique. 08/31 00:33 Darren Rudd MD is Referral Physician. cp 00:49 No provider procedures requiring assistance completed. Patient did not have IV access jb4 during this emergency room visit. Administered Medications: 00:16 Drug: Rocephin 1 grams Route: IV; Rate: calculated rate; Site: right antecubital; jb4 00:18 Follow up: Response: No adverse reaction; IV Status: Completed infusion; IV Intake: [id number] Intake: 00:18 IV: 10ml; Total: 10ml. jb4 Outcome: 00:34 Discharge ordered by . cp 00:49 Discharged to home via wheelchair, with family. jb4 00:49 Condition: stable 00:49 Discharge instructions given to patient, family, Instructed on discharge instructions, follow up and referral plans. medication usage, Demonstrated understanding of instructions, follow-up care, medications, Prescriptions given X 2. 00:52 Patient left the ED. jb4 Addendum: 09/03/2018 15:25 Addendum: Culture Results: Positive urine culture. No further action required. Bacteria s s sensitive to prescribed antibiotic. Signatures: Dispatcher [employer] Daija Guillen Shelby RN TIGRE Nina Sylvester RN RN ak1 Tor Potts PA PA cp Bryson, James, RN RN jb4 Charisma Rg 1 Corrections: (The following items were deleted from the chart) 08/31 00:51 00:49 Discharge instructions given to patient, family, Instructed on discharge jb4 instructions, follow up and referral plans. medication usage, Demonstrated understanding of instructions, follow-up care, medications, jb4
--- NOTE | 2018-08-31 00:34 | EDPHYS ---
Physician Documentation [facility] Name: Dianne Juárez Age: 83 yrs Sex: Female : 1935 Arrival Date: 08/30/2018 Time: 21:57 Bed 30 Private MD: Darren Rudd R ED Physician Stevenson Muñoz HPI: 08/30 22:35 This 83 yrs old Female presents to ER via Wheelchair with complaints of Foot cp Pain. 22:35 The patient presents with pain, that is acute. The complaints affect the right heel. cp Context: The problem was sustained at home, started while walking at home patient felt like something poked right heel through slipper prior to pain starting. 22:35 Onset: The symptoms/episode began/occurred today. Associated signs and symptoms: cp Pertinent negatives calf tenderness, fever. Patient also reports redness and warmth of left elbow and upper arm times 1 week. Historical: - Allergies: 22:10 Adhesives; ak1 22:10 Sulfa (Sulfonamide Antibiotics); ak1 - Home Meds: 22:10 levothyroxine 150 mcg tab 1 tab once daily [Active]; metoprolol tartrate 25 mg Oral tab ak1 1 tab 2 times per day [Active]; simvastatin 10 mg Oral tab 1 tab nightly [Active]; lisinopril 10 mg Oral tab 1 tab once daily [Active]; lisinopril 2.5 mg Oral tab 1 tab once daily [Active]; Eliquis 5 mg oral tab [Active]; Myrbetriq 50 mg oral Tb24 1 tab once daily [Active]; glimepiride 1 mg Oral tab twice daily [Active]; lansoprazole 30 mg oral cpDR 1 cap once daily [Active]; - PMHx: 22:10 Atrial Fib; Diabetes - NIDDM; Hyperlipidemia; Hypertension; Hypothyroidism; irregular ak1 heart beat; - PSHx: 22:10 Knee surgery; Cholecystectomy; BACK SURGERY; Carpal Tunnel Repair; Lithotripsy; ak1 - Immunization history:: Adult Immunizations unknown. - Social history:: Smoking status: Patient/guardian denies using tobacco. - Ebola Screening: : No symptoms or risks identified at this time. ROS: 22:45 Constitutional: Negative for body aches, chills, fever, poor PO intake. cp 22:45 Eyes: Negative for injury, pain, redness, and discharge. cp 22:45 ENT: Negative for drainage from ear(s), ear pain, sore throat, difficulty swallowing, difficulty handling secretions. 22:45 Cardiovascular: Negative for chest pain, edema, palpitations. 22:45 Respiratory: Negative for cough, shortness of breath, wheezing. 22:45 Abdomen/GI: Negative for abdominal pain, nausea, vomiting, and diarrhea. 22:45 MS/extremity: Positive for pain, of the right heel, Negative for paresthesias. 22:45 Skin: Positive for erythema, swelling, of the medial aspect left elbow and upper arm. 22:45 Neuro: Negative for altered mental status, headache, weakness. 22:45 All other systems are negative. Exam: 23:00 Constitutional: The patient appears in no acute distress, alert, awake, cp non-diaphoretic, non-toxic, well developed, well nourished. 23:00 Head/Face: Normocephalic, atraumatic. cp 23:00 Eyes: Periorbital structures: appear normal, Conjunctiva: normal, no exudate, no injection, Lids and lashes: appear normal, bilaterally. 23:00 ENT: External ear(s): are unremarkable, Nose: is normal, Mouth: Lips: moist, Oral mucosa: pink and intact, moist, Posterior pharynx: is normal, airway is patent. 23:00 Chest/axilla: Inspection: normal, Palpation: is normal, no crepitus, no tenderness. 23:00 Cardiovascular: Rate: normal. 23:00 Respiratory: the patient does not display signs of respiratory distress, Respirations: normal, no use of accessory muscles, no retractions, no splinting, no tachypnea. 23:00 Abdomen/GI: Inspection: abdomen appears normal, Palpation: abdomen is soft and non-tender, in all quadrants. 23:00 Musculoskeletal/extremity: Extremities: noted in the right heel: pain, tenderness, mild swelling, There is no evidence of erythema, puncture. 23:00 Skin: cellulitis, well demarcated, on the medial aspect of left elbow and left upper arm. 23:00 Neuro: Orientation: to person, place \T\ time. Mentation: is normal. Vital Signs: 22:06 BP 131 / 61; Pulse 79; Resp 20; Temp 98.7(O); Pulse Ox 99% ; Weight 94.35 kg; Height 5 lt1 ft. 2 in. (157.48 cm); Pain 7/10; 23:09 BP 104 / 55; Pulse 58; Resp 18; Pulse Ox 100% on R/A; jb4 08/31 00:15 BP 120 / 72; Pulse 64; Resp 18; Pulse Ox 95% on R/A; jb4 08/30 22:06 Body Mass Index 38.04 (94.35 kg, 157.48 cm) lt1 MDM: 08/30 22:05 Patient medically screened. cp 23:00 Differential diagnosis: closed fracture, cellulitis, abscess, foreign body. 08/31 00:32 Data reviewed: vital signs, nurses notes, lab test result(s), radiologic studies, plain cp films, and as a result, I will discharge patient. 00:32 Counseling: I had a detailed discussion with the patient and/or guardian regarding: the cp historical points, exam findings, and any diagnostic results supporting the discharge/admit diagnosis, lab results, radiology results, the need for outpatient follow up, a family practitioner, to return to the emergency department if symptoms worsen or persist or if there are any questions or concerns that arise at home. Response to treatment: the patient's symptoms have markedly improved after treatment, and as a result, I will discharge patient. 08/30 22:30 Order name: CBC with Diff cp 08/30 22:30 Order name: BMP cp 08/30 22:30 Order name: PT-INR; Complete Time: 23:38 cp 08/30 23:39 Interpretation: PT 16.0; Reviewed. cp 08/30 22:30 Order name: Ptt, Activated; Complete Time: 23:38 cp 08/30 22:30 Order name: CBC with Automated Diff; Complete Time: 23:38 EDMS 07 23:39 Interpretation: Normal except: RBC 3.77; HGB 11.3; HCT 34.8; RDW 16.2. cp 08/30 22:30 Order name: Basic Metabolic Panel; Complete Time: 23:38 EDMS 08/30 23:39 Interpretation: Normal except: GLUC 312; BUN 56; CRE 1.42; GFR 35. cp 08/30 22:30 Order name: XRAY Foot RIGHT 3 View; Complete Time: 23:38 cp 08/30 22:35 Order name: Procalcitonin; Complete Time: 23:56 cp 08/30 23:56 Interpretation: Reviewed. 08/30 22:35 Order name: Urine Dipstick-Ancillary (obtain specimen); Complete Time: 23:45 cp 08/30 23:46 Order name: Urine Microscopic Only; Complete Time: 00:28 jb4 08/31 00:28 Interpretation: Normal except: UWBC 10-20; UBACT >50; SQEPI 5-10. 08/30 23:47 Order name: Urine Dipstick--Ancillary (enter results); Complete Time: 00:28 ar5 08/31 00:28 Interpretation: Normal except: UBLD TRACE; U NIT POSITIVE; UESTR 1+. 08/31 00:18 Order name: Urine Culture EDMS Administered Medications: 00:16 Drug: Rocephin 1 grams Route: IV; Rate: calculated rate; Site: right antecubital; [facility] 00:18 Follow up: Response: No adverse reaction; IV Status: Completed infusion; IV Intake: [id number] Disposition: 08/31/18 00:34 Discharged to Home. Impression: Urinary tract infection, site not specified, Cellulitis of left upper limb, Pain in right foot. - Condition is Stable. - Discharge Instructions: Cellulitis, Adult, Heel Spur, Urinary Tract Infection, Adult, Foot Pain. - Prescriptions for Augmentin 875- 125 mg Oral Tablet - take 1 tablet by ORAL route every 12 hours for 10 days; 20 tablet. Cipro 250 mg Oral Tablet - take 1 tablet by ORAL route every 12 hours for 10 days; 20 tablet. - Medication Reconciliation Form, Thank You Letter, Antibiotic Education, Prescription Opioid Use form. - Follow up: Darren Rudd MD; When: 2 - 3 days; Reason: Recheck today's complaints. - Problem is new. - Symptoms have improved. Addendum: 09/03/2018 19:25 Co-signature as Attending Physician, Stevenson Muñoz MD. g s Signatures: Dispatcher [employer] EDMS Nina Sylvester RN RN ak1 Tor Potts PA PA Umang Frederick RN RN jb4 Stevenson Muñoz MD MD Corrections: (The following items were deleted from the chart) 07/05 00:52 00:34 08/31/2018 00:34 Discharged to Home. Impression: Urinary tract infection, site jb4 not specified; Cellulitis of left upper limb; Pain in right foot. Condition is Stable. Forms are Medication Reconciliation Form, Thank You Letter, Antibiotic Education, Prescription Opioid Use. Follow up: Darren Rudd; When: 2 - 3 days; Reason: Recheck today's complaints. Problem is new. Symptoms have improved. cp
[2018-08-31 01:56] VITALS: TEMP 98.7
[2018-08-31 01:59] VITALS: BP 120/72; O2SAT 95
== END 2018-08-31 00:52 | disposition home or self-care (01) ==
LOC: ER 21:52
DX: L03.114 Cellulitis of left upper limb (principal); I10 Essential (primary) hypertension; E11.9 Type 2 diabetes mellitus without complications; I48.91 Unspecified atrial fibrillation; E03.9 Hypothyroidism, unspecified; Z79.01 Long term (current) use of anticoagulants; Z88.2 Allergy status to sulfonamides; Z91.048 Other nonmedicinal substance allergy status
CPT/HCPCS: 87088; 85025; 87086; 80048; 36415; 85610; 85730; 87077; 87186; 84145; 73630; 96374; 99284; J0696; 81003; 81015

== ENCOUNTER 2019-02-07 22:46 | Emergency (ER) | payer OTHER ==
--- OUTSIDE RECORDS SUMMARY | 2019-02-07 22:48 | XMS REPORT ---
:1935 [facility] Address [address] [place] [address] Dr. Carlson[address] [place] [id number] Care Team Providers Name Role Phone Unavailable Unavailable Unavailable Problems This patient has no known problems. Allergies, Adverse Reactions, Alerts This patient has no known allergies or adverse reactions. Medications This patient has no known medications. Encounters Start End Encounter Admission Attending Care Care Encounter Date/Time Date/Time Type Type Clinicians Facility Department ID 2018-12-31 2018-12-31 Outpatient [facility] CAR 7502 09:04:00 09:04:00
[2019-02-08] MEDS ORDERED: TRAMADOL HCL 50 MG TAB ONE (00:26)
[2019-02-08] MEDS ORDERED: ACETAMINOPHEN 325 MG TABLET ONE (00:26)
--- NOTE | 2019-02-08 00:35 | EDPHYS ---
Physician Documentation [facility] Name: Dianne Juárez Age: 83 yrs Sex: Female : 1935 Arrival Date: 02/07/2019 Time: 22:51 Bed 6 Private MD: SHAVON Physician Chandler Champagne HPI: 02/08 00:28 This 83 yrs old Female presents to ER via Wheelchair with complaints of Foot la1 Pain. 00:28 The patient presents with pain, that is chronic. The complaints affect the AMY la1 Shoulders, ankles, feet. Context: The problem was sustained at home, the patient can partially bear weight, must have assistance, from family. Onset: The symptoms/episode began/occurred at an unknown time. Modifying factors: the symptoms are aggravated by movement, weight bearing. Associated signs and symptoms: Pertinent negatives calf tenderness, fever, nausea, rash, tingling, vomiting, warmth, weakness. Severity of symptoms: At their worst the symptoms were mild, in the emergency department the symptoms are unchanged, despite home interventions. The patient has experienced similar episodes in the past, chronically. family reports hx of RA and has been on naproxen but its not helping any more. Pain in AMY shoulders, ankles, and feet. Historical: - Allergies: 02/07 23:05 Adhesives; aa1 23:05 Sulfa (Sulfonamide Antibiotics); aa1 - Home Meds: 23:05 Lasix 40 mg Oral tab 1 tab 2 times per day [Active]; Myrbetriq 50 mg Oral Tb24 1 tab aa1 once daily [Active]; famotidine 20 mg oral tab 1 tab once daily [Active]; Plavix 75 mg Oral tab 1 tab once daily [Active]; Eliquis 5 mg Oral tab 1 tab 2 times per day [Active]; lisinopril 2.5 mg Oral tab 1 tab once daily [Active]; rosuvastatin 10 mg oral tab 1 tab once daily [Active]; levothyroxine 150 mcg tab 1 tab once daily [Active]; metformin 1,000 mg Oral tr24 1 tab once daily [Active]; naproxen 500 mg Oral tab 1 tab every 12 hours [Active]; Tresiba FlexTouch U-100 100 unit/mL (3 mL) subcutaneous inpn 20 unit [Active]; ozempic insulin [Active]; fiasp insulin [Active]; - PMHx: 23:05 Atrial Fib; Hyperlipidemia; irregular heart beat; Hypothyroidism; Hypertension; aa1 Diabetes - NIDDM; - PSHx: 23:05 Knee surgery; Cholecystectomy; BACK SURGERY; Carpal Tunnel Repair; Lithotripsy; aa1 - Immunization history:: Flu vaccine is up to date. - Social history:: Smoking status: Patient/guardian denies using tobacco. - Ebola Screening: : No symptoms or risks identified at this time. ROS: 02/08 00:30 Constitutional: Negative for fever, chills, and weight loss, Eyes: Negative for injury, la1 pain, redness, and discharge, ENT: Negative for injury, pain, and discharge, Neck: Negative for injury, pain, and swelling, Cardiovascular: Negative for chest pain, palpitations, and edema, Respiratory: Negative for shortness of breath, cough, wheezing, and pleuritic chest pain, Abdomen/GI: Negative for abdominal pain, nausea, vomiting, diarrhea, and constipation, Back: Negative for injury and pain, Neuro: Negative for headache, weakness, numbness, tingling, and seizure. MS/extremity: Positive for pain, of the AMY shoulders, ankles, feet. Exam: 00:30 Constitutional: This is a well developed, well nourished patient who is awake, alert, la1 and in no acute distress. Head/Face: Normocephalic, atraumatic. Eyes: Pupils equal round and reactive to light, extra-ocular motions intact. Periorbital areas with no swelling, redness, or edema. Neck: . No Meningismus. Chest/axilla: Normal chest wall appearance and motion. Nontender with no deformity. No lesions are appreciated. Cardiovascular: Regular rate and rhythm with a normal S1 and S2. No gallops, murmurs, or rubs. Normal PMI, no JVD. No pulse deficits. Respiratory: No increased work of breathing, no retractions or nasal flaring. Abdomen/GI: Soft, non-tender, with normal bowel sounds. No distension No guarding or rebound. No evidence of tenderness throughout. 00:30 Musculoskeletal/extremity: ROM: limited active range of motion due to pain, in the right arm, left arm, right leg and left leg, Circulation is intact in all extremities. Pulses: noted to be 3+ in the right radial artery, right dorsalis pedis artery, left radial artery and left dorsalis pedis artery. Vital Signs: 02/07 23:05 BP 100 / 54; Pulse 83; Resp 18; Temp 97.5; Pulse Ox 100% on R/A; Weight 92.99 kg (R); aa1 Height 4 ft. 11 in. (149.86 cm) (R); Pain 6/10; 02/08 00:00 BP 110 / 62; Pulse 89; Resp 19; Pulse Ox 98% on R/A; Pain 9/10; rr5 01:00 BP 103 / 61; Pulse 80; Resp 17; Temp 98; Pulse Ox 99% ; Pain 6/10; rr5 02/07 23:05 Body Mass Index 41.40 (92.99 kg, 149.86 cm) aa1 MDM: 02/07 23:47 Patient medically screened. la1 02/08 00:32 Data reviewed: vital signs, nurses notes, I have discussed the patient's la1 presentation/case with the attending Emergency Department Physician; and as a result, I will discharge patient. Data interpreted: Pulse oximetry: on room air is 100 %. Interpretation: normal. Counseling: I had a detailed discussion with the patient and/or guardian regarding: the historical points, exam findings, and any diagnostic results supporting the discharge/admit diagnosis, the need for outpatient follow up, a family practitioner, a die repairer forging. ED course: Discussed need for pt to see rheumatology, will continue to take naproxen at home and add tylenol. Discussed that steroids would not be appropriate at this time due to uncontrolled DM. Pt family comfortable with FU plans, return precautions given. Administered Medications: 00:28 Drug: traMADol 50 mg {Note: rass 0.} Route: PO; rr5 01:00 Follow up: Response: No adverse reaction; Pain is decreased; RASS: Alert and Calm (0) rr5 00:29 Drug: Tylenol 650 mg Route: PO; rr5 01:00 Follow up: Response: No adverse reaction; Pain is decreased rr5 Disposition: 04:49 Co-signature as Attending Physician, Chandler Champagne MD I agree with the assessment and tw4 plan of care. Disposition: 02/08/19 00:34 Discharged to Home. Impression: Pain in unspecified joint. - Condition is Stable. - Discharge Instructions: Joint Pain, Arthritis, Musculoskeletal Pain, Arthritis, [id number], Joint Pain, [id number]. - Medication Reconciliation Form, Thank You Letter form. - Problem is new. - Symptoms are unchanged. - Notes: You should see a Production Finisher, would reccomend beginning physical therapy. Take tylenol in addition to the naproxen as needed at home, return for new or worsening symptoms. Signatures: Risa Maxwell RN RN aa1 Jw Escalante, POULTRY FARMER-C POULTRY FARMER-Cla1 Chandler Champagne MD MD tw4 Christian Orlando RN RN rr5 Corrections: (The following items were deleted from the chart) 01:04 00:34 02/08/2019 00:34 Discharged to Home. Impression: Pain in unspecified joint. rr5 Condition is Stable. Forms are Medication Reconciliation Form, Thank You Letter, Antibiotic Education, Prescription Opioid Use. Problem is new. Symptoms are unchanged. la1
--- NOTE | 2019-02-08 00:35 | ER ---
Nurse's Notes [facility] Name: Dianne Juárez Age: 83 yrs Sex: Female : 1935 Arrival Date: 02/07/2019 Time: 22:51 Bed 6 Private MD: Diagnosis: Pain in unspecified joint Presentation: 02/07 22:57 Presenting complaint: Patient states: renetta shoulder pain for several days and renetta foot aa1 pain x 2 days. Denies injury. Reports they hurt so bad she can barely bear weight. Transition of care: patient was not received from another setting of care. Onset of symptoms was February 06, 2019. Risk Assessment: Do you want to hurt yourself or someone else? Patient reports no desire to harm self or others. Initial Sepsis Screen: Does the patient meet any 2 criteria? No. Patient's initial sepsis screen is negative. Does the patient have a suspected source of infection? No. Patient's initial sepsis screen is negative. Care prior to arrival: None. 22:57 Method Of Arrival: Wheelchair aa1 22:57 Acuity: DOMINIQUE 3 aa1 Triage Assessment: 23:05 General: Appears in no apparent distress. comfortable, well groomed, Behavior is calm, aa1 cooperative, appropriate for age. Historical: - Allergies: 23:05 Adhesives; aa1 23:05 Sulfa (Sulfonamide Antibiotics); aa1 - Home Meds: 23:05 Lasix 40 mg Oral tab 1 tab 2 times per day [Active]; Myrbetriq 50 mg Oral Tb24 1 tab aa1 once daily [Active]; famotidine 20 mg oral tab 1 tab once daily [Active]; Plavix 75 mg Oral tab 1 tab once daily [Active]; Eliquis 5 mg Oral tab 1 tab 2 times per day [Active]; lisinopril 2.5 mg Oral tab 1 tab once daily [Active]; rosuvastatin 10 mg oral tab 1 tab once daily [Active]; levothyroxine 150 mcg tab 1 tab once daily [Active]; metformin 1,000 mg Oral tr24 1 tab once daily [Active]; naproxen 500 mg Oral tab 1 tab every 12 hours [Active]; Tresiba FlexTouch U-100 100 unit/mL (3 mL) subcutaneous inpn 20 unit [Active]; ozempic insulin [Active]; fiasp insulin [Active]; - PMHx: 23:05 Atrial Fib; Hyperlipidemia; irregular heart beat; Hypothyroidism; Hypertension; aa1 Diabetes - NIDDM; - PSHx: 23:05 Knee surgery; Cholecystectomy; BACK SURGERY; Carpal Tunnel Repair; Lithotripsy; aa1 - Immunization history:: Flu vaccine is up to date. - Social history:: Smoking status: Patient/guardian denies using tobacco. - Ebola Screening: : No symptoms or risks identified at this time. Screenin:40 Abuse screen: Denies threats or abuse. Denies injuries from another. Nutritional rr5 screening: No deficits noted. Tuberculosis screening: No symptoms or risk factors identified. Fall Risk Gait- Impaired (20 pts.). Total Walter Fall Scale indicates No Risk (0-24 pts). Assessment: 23:30 General: Appears in no apparent distress. uncomfortable, Behavior is calm, cooperative, rr5 appropriate for age. 23:30 Pain: Complains of pain in shoulder and foot Pain does not radiate. Pain currently is 6 rr5 out of 10 on a pain scale. Quality of pain is described as aching, Pain began gradually, Is intermittent. Neuro: Level of Consciousness is awake, alert, obeys commands, Oriented to person, place, time, situation. Cardiovascular: Capillary refill < 3 seconds Patient's skin is warm and dry. Respiratory: Airway is patent Respiratory effort is even, unlabored, Respiratory pattern is regular, symmetrical. GI: No signs and/or symptoms were reported involving the gastrointestinal system. : No signs and/or symptoms were reported regarding the genitourinary system. EENT: No signs and/or symptoms were reported regarding the EENT system. Derm: Skin is intact, is healthy with good turgor, Skin temperature is warm. Musculoskeletal: Capillary refill < 3 seconds, Reports pain in shoulder and foot joints. 02/08 00:30 Reassessment: Patient appears in no apparent distress at this time. No changes from rr5 previously documented assessment. Patient and/or family updated on plan of care and expected duration. Pain level reassessed. 01:00 Reassessment: Patient appears in no apparent distress at this time. Patient is alert, rr5 oriented x 3, equal unlabored respirations, skin warm/dry/pink. discharge instruction given and explained to java j2ee technical lead without complaints made. Patient states symptoms have improved. Vital Signs: 02/07 23:05 BP 100 / 54; Pulse 83; Resp 18; Temp 97.5; Pulse Ox 100% on R/A; Weight 92.99 kg (R); aa1 Height 4 ft. 11 in. (149.86 cm) (R); Pain 6/10; 02/08 00:00 BP 110 / 62; Pulse 89; Resp 19; Pulse Ox 98% on R/A; Pain 9/10; rr5 01:00 BP 103 / 61; Pulse 80; Resp 17; Temp 98; Pulse Ox 99% ; Pain 6/10; rr5 02/07 23:05 Body Mass Index 41.40 (92.99 kg, 149.86 cm) aa1 ED Course: 02/07 22:51 Patient arrived in ED. cf2 22:58 Triage completed. aa1 23:05 Arm band placed on right wrist. aa1 23:30 Patient has correct armband on for positive identification. Placed in gown. Bed in low rr5 position. Call light in reach. Side rails up X2. Pulse ox on. 23:30 No provider procedures requiring assistance completed. Patient did not have IV access rr5 during this emergency room visit. 23:47 Jw Escalante [facility]-C [facility] la1 23:47 Chandler Champagne MD is Attending Physician. la1 23:57 Christian Orlando RN is Primary Nurse. rr5 Administered Medications: 02/08 00:28 Drug: traMADol 50 mg {Note: rass 0.} Route: PO; rr5 01:00 Follow up: Response: No adverse reaction; Pain is decreased; RASS: Alert and Calm (0) rr5 00:29 Drug: Tylenol 650 mg Route: PO; rr5 01:00 Follow up: Response: No adverse reaction; Pain is decreased rr5 Outcome: 00:34 Discharge ordered by . la1 01:00 Discharged to home via wheelchair, with family. rr5 01:00 Condition: stable 01:00 Discharge instructions given to patient, family, Instructed on discharge instructions, rr5 follow up and referral plans. Demonstrated understanding of instructions, follow-up care. 01:04 Patient left the ED. rr5 Signatures: Risa Maxwell RN RN aa1 Jw Escalante FNP-C FNP-Cla1 Christian Orlando, RN RN rr5 Chano Maria cf2 Corrections: (The following items were deleted from the chart) 02/07 23:07 22:57 Presenting complaint: Patient states: renetta foot pain x 2 days. Denies injury. aa1 Reports they hurt so bad she can barely bear weight aa1 02/08 01:31 02/07 23:30 Pain: Complains of pain in shoulder and foot Pain does not radiate. Pain rr5 currently is 9 out of 10 on a pain scale. Quality of pain is described as aching, Pain began gradually, Is intermittent, rr5
[2019-02-08 03:55] VITALS: BP 100/54; TEMP 97.5; O2SAT 100
== END 2019-02-08 01:04 | disposition home or self-care (01) ==
LOC: ER 22:46
DX: M25.512 Pain in left shoulder (principal); M25.511 Pain in right shoulder; M25.572 Pain in left ankle and joints of left foot; M25.571 Pain in right ankle and joints of right foot; I10 Essential (primary) hypertension; E03.9 Hypothyroidism, unspecified; E78.5 Hyperlipidemia, unspecified; I48.91 Unspecified atrial fibrillation; E11.9 Type 2 diabetes mellitus without complications; Z98.890 Other specified postprocedural states
CPT/HCPCS: 99283

== ENCOUNTER 2019-10-07 19:06 | Inpatient (IN) | payer OTHER ==
--- OUTSIDE RECORDS SUMMARY | 2019-10-07 19:08 | XMS REPORT | Clinical Summary ---
:1935 Author Organization [facility] Address [address] [place] [address] Care Team Providers Name Role Phone Asked, Pcp Primary Care Provider Unavailable Allergies Active Allergy Reactions Severity Noted Date Comments Adhesive 04/23/2013 Tears skin Sulfasalazine Rash Low 11/06/2013 Medications Medication Sig Dispensed Refills Start Date End Date Status glimepiride (AMARYL) 0 07/14/2016 Active 1 MG tablet metoprolol tartrate 12.5 mg 2 (two) 0 08/14/2016 Active (LOPRESSOR) 25 mg times a day. tablet levothyroxine 0 07/14/2016 Activ e (SYNTHROID, LEVOXYL) 150 mcg tablet simvastatin (ZOCOR) 0 07/14/2016 Active 10 MG tablet furosemide (LASIX) Take 40 mg by 0 Active 40 mg/4 mL solution mouth daily. oral solution lisinopril Take 2.5 mg by 0 Acti ve (PRINIVIL,ZESTRIL) mouth daily. 2.5 mg tablet lansoprazole Take 30 mg by 0 Act mehreen (PREVACID) 30 MG mouth daily. capsule dextran Administer 1 drop 30 mL 0 06/15/2018 A ctive 70-hypromellose to both eyes as (ARTIFICIAL TEARS) needed (dry 0.1-0.3 % drops eyes). famotidine (PEPCID) Take 1 tablet (20 60 tablet 3 12/25/2017 1 20 MG tablet mg total) by mouth 2 (two) times a day. aspirin (ECOTRIN) 81 Take 1 tablet (81 30 tablet 3 12/26/2017 12/26/2018 MG enteric coated mg total) by tablet mouth daily. apixaban (ELIQUIS) 5 Take 1 tablet (5 60 tablet 0 06/20/2018 0 06/20/2019 mg tablet mg total) by mouth 2 (two) times a day. 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 Last Filed Vital Signs Not on file Plan of Treatment Health Maintenance Due Date Last Done Comments DIABETIC RETINAL EYE EXAM 1935 DIABETIC FOOT EXAM 1945 URINE MICROALBUMIN 1945 SHINGLES VACCINES (#1) 1985 65+ PNEUMOCOCCAL VACCINE (1 of 2 - PCV13) 2000 INFLUENZA VACCINE 09/28/2019 Implants Implanted Type Area Ballistician Device Shelf Model / Identifier Expiration Serial / Date Lot Balloon Oclsn Endocath 0.35in 90cm [id number] - [id number] Cardiova scular N/A: [employer] 20 06 / Implanted: 12/21/2017 at [facility] (Quantity not on file) Implants N/A / Knee Implant Description:left knee Procedures Procedure Name Priority Date/Time Associated Diagnosis Comme nts MRI LUMBAR SPINE WO Routine 07/11/2019 11:02 Spinal stenosis o f Results for this CONTRAST AM CDT lumbar region with procedure are in neurogenic the results claudication section. after 10/06/2018 Results MRI Lumbar Spine Wo Contrast (07/11/2019 11:02 AM CDT) Specimen Narrative Performed At This result has an attachment that is no t available. 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 FINDINGS: Numbering assumes that the last visualized functional disc to be L5-S1. There is kyphosis at L2. There are some chronic right-sided wedging deformities at L2 and L3 and left-sided wedging deformity at L4-L5 from the scoliosis. There is approximately 30 degrees leftward curvature centered at L2-3. There is leftward listhesis of L3 and ri ghtward listhesis of L1. There is mild retrolisthesis of L1, L2 and L3 and mild anterolisthesis of L5. No acute osseous edema to suggest acute fracture. Soft tissues shows no mass, adenopathy or aneurysm. The partially visualized spinal cord and the conus are unremarkable. Axial images through the disc spaces demonstrate the f ollowing: T12-L1: There is disc bulge with facet h ypertrophy and posterior spondylosis with mild effacement of ventral thecal sac and lateral recesses. The foramina are patent. L1-L2: There is complete loss of disc he ight with disc bulge with facet hypertrophy with moderate narrowing of the lateral recesses and canal which appears slightly progression prior exam. Disc osteophy te complex and facet spurring results in moderate right foraminal narrowing with circumfer ential effacement of the peroneal fat and mild abutment of the exiting nerve root. Left foramen is patent. The right foraminal narrowing appears progressed. L2-L3: There is diffuse disc bulge with facet and ligamentum flavum hypertrophy with moderate narrowing of the canal and lateral recesses which is slightly progressed. Disc osteophyte complex and facet spurring results in moderate severe right and mild left foraminal narrowing. Correlate for significance. L3-L4: There is complete loss of disc he ight with disc bulge and facet hypertrophy. Leftward listhesis of L3 results in distortion of the thecal sac with severe narrowing of left lateral recess and mode rate severe narrowing of the canal. There is facet hypertrophy and spurring with a left for aminal protrusion with severe bilateral foraminal narrowing. Correlate for exiting radiculopathies. Findings appear stable to slightly progressed. L4-L5: There is loss of disc height with disc bulge and facet hypertrophy with moderate narrowing of the canal and lateral recesses. Laminectomy changes are noted. Disc osteophyte complex and facet spur ring with loss of disc height results in severe left and mild to moderate right foraminal narrowing. Findi ngs are grossly stable. L5-S1: There is facet hypertrophy and di sc bulge with moderate bilateral lateral recesses. The central thecal sac is patent. There is severe left and moderate right foraminal narrowing. Findings are grossly stable. The partially visualized upper sacrum is unremarkable. IMPRESSION: There is scoliosis and multilevel spondy losis resulting in significant lateral recess and foraminal stenoses as detailed above. Findings are progressed at multiple levels as detailed above. [id number] Procedure Note Hm Interface, Radiology Results Incoming - 07/11/2019 12:15 PM CDT EXAMINATION: MRI LUMBAR SPINE WO CONTRAST CLINICAL HISTORY: M48.062 Spinal stenosi s lumbar region with neurogenic claudication, PAIN COMPARISON: MRI lumbar spine dated August 18, 2016 TECHNIQUE: Multiplanar multisequence non contrast enhanced examination was performed of the Lumbar spine. FINDINGS: Numbering assumes that the last visualiz ed functional disc to be L5-S1. There is kyphosis at L2. There are some chronic right-sided wedging deformities at L2 and L3 and left-sided wedging deformity at L4-L5 from the scoliosis. There is approximately 30 degrees leftward curvature centered at L2-3. There is leftward listhesis of L3 and ri ghtward listhesis of L1. There is mild retrolisthesis of L1, L2 and L3 and mild anterolisthesis of L5. No acute osseous edema to suggest acute fracture. Soft tissues shows no mass, adenopathy o r aneurysm. The partially visualized spinal cord and the conus are unremarkable. Axial images through the disc spaces dem onstrate the following: T12-L1: There is disc bulge with facet h ypertrophy and posterior spondylosis with mild effacement of ventral thecal sac and lateral recesses. The foramina are patent. L1-L2: There is complete loss of disc he ight with disc bulge with facet hypertrophy with moderate narrowing of the lateral recesses and canal which appears slightly progression prior exam. Disc osteophyte complex and facet spurring results in moderate right foraminal narrowing with circumfer ential effacement of the peroneal fat and mild abutment of the exiting nerve root. Left foramen is patent. The right foraminal narrowing appears progressed. L2-L3: There is diffuse disc bulge with facet and ligamentum flavum hypertrophy with moderate narrowing of the canal and lateral recesses which is slightly progressed. Disc osteophyte complex and facet spurring results in moderate severe right and mil d left foraminal narrowing. Correlate for significance. L3-L4: There is complete loss of disc he ight with disc bulge and facet hypertrophy. Leftward listhesis of L3 results in distortion of the thecal sac with severe narrowing of left lateral recess and moderate severe narrowing of the canal. There is facet hypertrophy and spurring with a left for aminal protrusion with severe bilateral foraminal narrowing. Correlate for exiting radiculopathies. Findings appear stable to slightly progressed. L4-L5: There is loss of disc height with disc bulge and facet hypertrophy with moderate narrowing of the canal and lateral recesses. Laminectomy changes are noted. Disc osteophyte complex and facet spurring with loss of disc height results in severe left and mild to moderate right foraminal na rrowing. Findings are grossly stable. L5-S1: There is facet hypertrophy and di sc bulge with moderate bilateral lateral recesses. The central thecal sac is patent. There is severe left and moderate right foraminal narrowing. Findings are grossly stable. The partially visualized upper sacrum is unremarkable. IMPRESSION: There is scoliosis and multilevel spondy losis resulting in significant lateral recess and foraminal stenoses as detailed above. Findings are progressed at multiple levels as detailed above. [id number] Performing Organization Address City/State/Zipcode Phone Number [facility]LE[facility] [address] [place] [address] after 10/06/2018 Insurance Payer Benefit Plan / Subscriber ID Effective Dates Phone Addre ss Type Group MEDICARE MEDICARE PART A xxxxxxxxxxx 2000-Present [facility] [place] Medicare AND B Advance Directives For more information, please contact: [phone] Type Date Recorded Patient [employer] Explanati on Advance Directives, Living 12/20/2017 3:51 PM Will and Medical Power of Vice President [employer]
--- OUTSIDE RECORDS SUMMARY | 2019-10-07 19:09 | XMS REPORT | Continuity of Care Document ---
:1935 Author Organization [facility] [place] Care Team Providers Name Role Phone [facility] Unavailable Un available Problems Problem Status Onset Classification Date Comments Sourc e Date Reported CCL / LHC W/ POSS PCI Active [facility] DOHERTY TO ASSI 019 [facility]ical [place] Unspecified atrial 08/06/2018 [facility] fibrillation [address] [place] [address] AFIB Active [address] DX:ABDOMINAL STRESS Active [facility] DYSPNEA 015 [facility] Atrial fibrillation Resolved Problem 01/03/2019 [facility] (disorder) [facility] Diabetes mellitus Resolved Problem 01/03/2019 [facility] (disorder) [facility] Hypercholesterolemia Resolved Problem 01/03/2019 [facility] (disorder) [facility] Hypertensive disorder, Resolved Problem 01/03/2019 [facility] systemic arterial [facility]ical (disorder) [place] Thyroid structure (body Resolved Problem 06/29/2014 1hypo [facility] structure) [facility] OTHER FORMS OF DYSPNEA Active [facility] Medications Medication Details Route Status Patient Ordering Order Source Instructions Provider Date Famotidine 20 MG Notes: (Same Inactive [place] Oral Tablet as: Pepcid) [address] [place] [address] Thyroxine Notes: Take Inactive [facility] 1 hour 019 Medical before or 2 Center hours after meal; Enteral feeds may interefere with the absorption of this medication. (Same as: Levothroid) Lisinopril Notes: (Same [place] as: 019 Medical Prinivil) [place] 24 HR mirabegron Notes: (Same Inactive [place] 50 MG Extended as: 019 Medical Release Tablet Myrbetriq [place] [Myrbetriq] ER) Non-Formular y rosuvastatin Notes: (Same [place]active [place] As: Crestor) [address] [place] [address] Plavix Notes: (Same Inactive [facility] As: Plavix) 019 Medical Center Eliquis Notes: Same Inactive [place] as: Eliquis 019 [facility] Center clopidogrel 75 75 mg = 1 [place] mg oral tablet tab, PO, 019 Medical Daily, # 90 Center tab, 3 Refill(s) Epinephrine 0.01 Route: Inactive [place] as MG/ML / SUB-Q, [address] [place] [address] Lidocaine Dosing Center Hydrochloride 10 Weight MG/ML Injectable 97.273, kg, Solution ONCE, Start date: 01/01/19 2:00:00 COTTON TIPPER, Stop date: 01/01/19 2:00:00 COTTON TIP[place] insulin degludec insulin [place] Longer [place] degludec, 14 Active [facility] Medical unit, Route: [place] SUB-Q, Daily, 12/31/18 21:30:00 COTTON TIPPER, Duration: 30 day, Stop date: 01/30/19 9:00:00 COTTON TIPPER, 0 Eliquis 5 mg, Route: Inactive [facility] PO, Drug [facility] Medical form: TAB, Center Q12H, Dosing Weight 97.273, kg, Start date: 12/31/18 21:00:00 COTTON TIPPER, Duration: 30 day, Stop date: 01/30/19 9:00:00 COTTON TIPPER Humalog Notes: (Same Inactive [facility] as: Humalog) [facility] Medical Roll in Center palms of hands gently; Do not shake vigorously. WASTE: F/P - Black; E - Municipal Trash Bin Stable for 28 days at room temperature. Expires in days from __Date metoprolol Notes: (Same No Longer [place] as tartrate as: Active [address] [place] [address] Lopressor) [place] Insulin, Aspart, Route: Inactive [place] as Human SUB-Q, [address] [place] [address] TID-Before Center Meals, Dosing Weight 97.273, kg, Start date: 12/31/18 16:30:00 COTTON TIPPER, Duration: 30 day, Stop date: 01/30/19 11:30:00 COTTON TIPPER Dextrose 50% 12.5 gm, 25 [place] Longer [place] Syringe mL, Route: Active [address] [place] [address] IVP, Drug [place] Form: INJ, Dosing Weight 97.273, kg, PRN, PRN Blood Glucose Results, Start date: 12/31/18 14:40:00 COTTON TIPPER, Duration: 30 day, Stop date: 01/30/19 14:39:00 COTTON TIPPER, 0 Glucagon 1 mg, Route: No Longer [facility] IM, Drug Active 019 Medical form: Center PDR/INJ, PRN, Dosing Weight 97.273, kg, PRN Blood Glucose Results, Start date: 12/31/18 14:40:00 COTTON TIPPER, Duration: 30 day, Stop date: 01/30/19 14:39:00 COTTON TIPPER, 0 Insulin Lispro Notes: (Same No Longer [facility] as: Humalog) Active 019 Medical Roll in Center palms of hands gently; Do not shake vigorously. WASTE: F/P - Black; E - Municipal Trash Bin Stable for 28 days at room temperature. Expires in days from __Date clopidogrel 75 75 mg, PO, No Longer [place] MG Oral Tablet Daily, 0 Active 019 Medical [Plavix] Refill(s) [place] Sodium Chloride 750 mL, No Longer [place] as 0.9% IV 750 mL Rate: 75 Active 019 Medical ml/hr, [place] Infuse over: 10 hr, Route: IV, Dosing Weight 97.273 kg, Total Volume: 750, Start date: 12/31/18 14:29:00 COTTON TIPPER, Duration: 10 hr, Stop date: 01/01/19 0:28:00 COTTON TIPPER, 2.04, m2, 0 Nitroglycerin Notes: (Same No Longer [facility] as:Nitroquic Active 019 Medical k, Center Nitrostat) "Do Not Crush" Sublingual tablet insulin degludec 14un, SUB-Q, Active [facility] Daily, 0 019 Medical Refill(s) [place] Insulin, Aspart, 4units, [place] Human SUB-Q, 019 Medical TID-Before Center Meals, 0 Refill(s) rosuvastatin 10 10 mg = 1 Active [place] mg oral tablet tab, PO, 019 Medical Daily, 0 Center Refill(s) Famotidine 20 MG 20 mg = 1 Active [place] Oral Tablet tab, PO, 019 Medical Daily, 0 Center Refill(s) 24 [place] mirabegron 50 mg = 1 Active [place] 50 MG Extended tab, PO, 019 Medical Release Tablet Daily, # 30 Cente r [Myrbetriq] tab, 0 Refill(s) apixaban 5 MG 5 mg, PO, Active [place] Oral Tablet Q12H, 0 019 Medical [Eliquis] Refill(s) Center Furosemide 40 MG 40 mg = 1 [place] Oral Tablet tab, PO, 019 Medical BID, 0 Center Refill(s) Aspirin 325 MG 325 mg, 1 Inactive [place] Oral Tablet tab, Route: 019 Medical PO, ONCE, Center Dosing Weight 97.273, kg, Start date: 12/31/18 9:48:00 COTTON TIPPER, Stop date: 12/31/18 9:48:00 COTTON TIPPER rivaroxaban 20 20 mg = 1 [place] MG Oral Tablet tab, PO, 015 Medical [Xarelto] QPM, 0 Center Refill(s) glimepiride 1 mg 1 mg = 1 Active [place] oral tablet tab, PO, 015 Medical BID, # 30 Center tab, 0 Refill(s) lisinopril 2.5 2.5 mg = 1 Active [place] mg oral tablet tab, PO, 015 Medical Daily, # 30 Center tab, 0 Refill(s) levothyroxine 150 Active [facility] 150 mcg (0.15 microgram = 015 Medica l mg) oral tablet 1 tab, PO, Cente r Daily, # 30 tab, 0 Refill(s) simvastatin 10 10 mg = 1 [place] mg oral tablet tab, PO, 015 Medical Bedtime, # Center 30 tab, 0 Refill(s) solifenacin 10 mg = 1 Active [facility] succinate 10 MG tab, PO, 015 Medical Oral Tablet Daily, # 30 Center [VESICARE] tab, 0 Refill(s) metoprolol 25 mg = 1 Active [facility] tartrate 25 mg tab, PO, 015 Medical oral tablet BID, # 180 Center tab, 0 Refill(s) Aspirin 81 MG 81 mg = 1 Active [facility] Enteric Coated tab, PO, 015 Medical Tablet Daily, # 0 Center tab, 0 Refill(s) Allergies, Adverse Reactions, Alerts Substance Category Reaction Severity Reaction Status Date Comments S ource type Reported sulfa drugs Assertion Drug Active [facility] Adhesive Assertion Drug Active [place] [facility] Immunizations No Data Provided for This Section Results Order Name Results Value Reference Date Interpretation Comments Marcelle rce Range CARDIAC Troponin-T 0.053 0.000 - 01/01 [facility] ENZYMES 0.100 [facility] CHEM PANEL Creatinine 0.86 0.50 - 01/01 [facility] Lvl 1.40 /2018 [facility] CHEM PANEL eGFR 63 01/01 Result Comment: The Medical eGFR is Center calculated using the CKD-EPI formula. In most young, healthy individuals the eGFR will be >90 mL/min/1.73m2. The eGFR declines with age. An eGFR of 60-89 may be normal in some populations, particularly the elderly, for whom the CKD-EPI formula has not been extensively validated. Use of the eGFR is not recommended in the following populations:<b r/>
Indivi duals with unstable creatinine concentrations , including patients and those with serious co-morbid conditions.

Patient s with extremes in muscle mass or diet.

The data above are obtained from the National Kidney Disease Education Program (NKDEP) which additionally recommends that when the eGFR is used in patients with extremes of body mass index for purposes of drug dosing, the eGFR should be multiplied by the estimated BMI. HEMATOLOGY Hgb 9.3 12.0 - 01/01 [facility] 16.0 [facility] HEMATOLOGY Hct 29.1 36.0 - 01/01 [facility] 48.0 [facility] BLOOD BANK ABO/Rh B POS 12/31 [facility] RESULTS /2018 [facility] BLOOD BANK Antibody Negative 12/31 [facility] RESULTS Scrn (12/31/18 9:27 AM) [facility] CARDIAC Troponin-T 0.070 0.000 - 12/31 [facility] ENZYMES 0.100 [facility] CHEM PANEL Glucose Lvl 155 70 - 99 12/31 [facility] CHEM PANEL BUN 34 7 - 22 12/31 [facility] CHEM PANEL Creatinine 1.02 0.50 - 12/31 [place] Lvl 1.40 [facility] CHEM PANEL Sodium Lvl 140 135 - 145 12/31 [facility] CHEM PANEL Potassium 3.8 3.5 - 5.1 12/31 [facility] CHEM PANEL Chloride Lvl 104 95 - 109 12/31 [facility] CHEM PANEL CO2 31 24 - 32 12/31 [facility] CHEM PANEL Calcium Lvl 9.3 8.5 - 10.5 12/31 [facility] CHEM PANEL eGFR 51 12/31 Result Comment: The Medical eGFR is Center calculated using the CKD-EPI formula. In most young, healthy individuals the eGFR will be >90 mL/min/1.73m2. The eGFR declines with age. An eGFR of 60-89 may be normal in some populations, particularly the elderly, for whom the CKD-EPI formula has not been extensively validated. Use of the eGFR is not recommended in the following populations:<b r/>
Indivi duals with unstable creatinine concentrations , including patients and those with serious co-morbid conditions.

Patient s with extremes in muscle mass or diet.

The data above are obtained from the National Kidney Disease Education Program (NKDEP) which additionally recommends that when the eGFR is used in patients with extremes of body mass index for purposes of drug dosing, the eGFR should be multiplied by the estimated BMI. CHEM PANEL AGAP 8.8 10.0 - 12/31 20. [facility] CHEM PANEL Magnesium 2.2 1.8 - 2.4 12/31 [facility] CHEM PANEL Phosphorus 3.1 2.5 - 4.5 12/31 [facility] HEMATOLOGY WBC 9.4 3.7 - 10.4 12/31 [facility] HEMATOLOGY RBC 3.92 4.20 - 12/31 [place] 5.40 [facility] HEMATOLOGY Hgb 10.2 12.0 - 12/31 [place] 16.0 [facility] HEMATOLOGY Hct 31.6 36.0 - 12/31 [place] 48.0 [facility] HEMATOLOGY MCV 80.7 80.0 - 12/31 [place] 98.0 /2019 [facility] HEMATOLOGY MCH 26.0 27.0 - 12/31 [place] 31.0 /2019 [facility] HEMATOLOGY MCHC 32.2 32.0 - 12/31 [place] 36.0 2019 [facility] HEMATOLOGY RDW 18.4 11.5 - 12/31 [place] 14.5 2019 [facility] HEMATOLOGY Platelet 224 133 - 450 12/31 [facility] HEMATOLOGY MPV 8.5 7.4 - 10.4 12/31 [facility] HEMATOLOGY PT 14.2 12.0 - 12/31 [place] 14.7 2019 [facility] HEMATOLOGY PTT 28.8 22.9 - 12/31 [place] 35.8 2019 [facility] HEMATOLOGY INR 1.12 0.85 - 12/31 [place] 1.17 /2018 [facility] HEMATOLOGY Segs 70.0 45.0 - 12/31 [place] 75.0 /2019 [facility] HEMATOLOGY Lymphocytes 20.5 20.0 - 12/31 [place] 40.0 2019 [facility] HEMATOLOGY Monocytes 8.7 2.0 - 12.0 12/31 [facility] HEMATOLOGY Eosinophils 0.6 0.0 - 4.0 12/31 [place] /2018 [facility] HEMATOLOGY Basophils 0.2 0.0 - 1.0 12/31 [facility] HEMATOLOGY Neutrophils 6.6 1.5 - 8.1 12/31 [place] # /2019 [facility] HEMATOLOGY Lymphocytes 1.9 1.0 - 5.5 12/31 [place] # /2018 [facility] HEMATOLOGY Monocytes # 0.8 0.0 - 0.8 12/31 [place] /2019 [facility] HEMATOLOGY Eosinophils 0.1 0.0 - 0.5 12/31 [place] # /2019 [facility] CARDIAC BNP 277 <=100 01/16 [facility] ENZYMES pg/mL [facility] CHEM PANEL Phosphorus 2.8 2.5 - 4.5 01/16 [facility] CHEM PANEL Magnesium 2.3 1.8 - 2.4 01/16 [facility] Lvl /2017 [facility] ELECTROLYTES AGAP 8.1 10.0 - 01/16 [place] 20.0 [facility] ELECTROLYTES eGFR 45 01/16 [facility] Comment: The Medical eGFR is Center calculated using the CKD-EPI formula. In most young, healthy individuals the eGFR will be >90 mL/min/1.73m2. The eGFR declines with age. An eGFR of 60-89 may be normal in some populations, particularly the elderly, for whom the CKD-EPI formula has not been extensively validated. Use of the eGFR is not recommended in the following populations:<b r/>
Indivi duals with unstable creatinine concentrations , including patients and those with serious co-morbid conditions.

Patient s with extremes in muscle mass or diet.

The data above are obtained from the National Kidney Disease Education Program (NKDEP) which additionally recommends that when the eGFR is used in patients with extremes of body mass index for purposes of drug dosing, the eGFR should be multiplied by the estimated BMI. ELECTROLYTES Calcium Lvl 8.2 8.5 - 10.5 01/16 [place] [facility] ELECTROLYTES CO2 29 24 - 32 01/16 [facility]2017 [facility] ELECTROLYTES Chloride Lvl 107 95 - 109 01/16 [place] [facility] ELECTROLYTES Potassium 3.1 3.5 - 5.1 01/16 [place] Lvl [facility] ELECTROLYTES Sodium Lvl 141 135 - 145 01/16 [place] as [facility] ELECTROLYTES Glucose Lvl 101 70 - 99 01/16 [place] [facility] ELECTROLYTES Creatinine 1.14 0.50 - 01/16 [facility] Lvl 1.40 [facility] ELECTROLYTES BUN 33 7 - 22 01/16 [facility] HEMATOLOGY INR 1.09 0.85 - 01/16 [place] 1.17 [facility] HEMATOLOGY PT 14.1 12.0 - 01/16 [place] 14.7 [facility] HEMATOLOGY PTT 25.6 22.9 - 01/16 [place] 35.8 [facility] HEMATOLOGY Platelet 159 133 - 450 01/16 [facility]2017 [facility] HEMATOLOGY MPV 9.1 7.4 - 10.4 01/16 [facility]2017 [facility] HEMATOLOGY MCHC 33.2 32.0 - 01/16 [place] 36.0 [facility] HEMATOLOGY RDW 14.6 11.5 - 01/16 [place] 14.5 [facility] HEMATOLOGY WBC 6.5 3.7 - 10.4 01/16 [facility] HEMATOLOGY RBC 3.98 4.20 - 01/16 [place] 5.40 [facility] HEMATOLOGY Hgb 12.3 12.0 - 01/16 [place] 16.0 [facility] HEMATOLOGY MCV 92.9 80.0 - 01/16 [place] 98.0 [facility] HEMATOLOGY Hct 37.0 36.0 - 01/16 [place] 48.0 [facility] HEMATOLOGY MCH 30.8 27.0 - 01/16 [place] 31.0 [facility] HEMATOLOGY Lymphocytes 1.5 1.0 - 5.5 01/16 [place] # [facility] HEMATOLOGY Segs 62.9 45.0 - 01/16 [place] 75.0 [facility] HEMATOLOGY Lymphocytes 23.2 20.0 - 01/16 [place] 40.0 [facility] HEMATOLOGY Neutrophils 4.1 1.5 - 8.1 01/16 [facility] HEMATOLOGY Monocytes # 0.8 0.0 - 0.8 01/16 [facility] HEMATOLOGY Basophils 0.5 0.0 - 1.0 01/16 [facility] HEMATOLOGY Eosinophils 0.1 0.0 - 0.5 01/16 [facility] # [facility] HEMATOLOGY Monocytes 12.0 2.0 - 12.0 01/16 [facility] HEMATOLOGY Eosinophils 1.4 0.0 - 4.0 01/16 [facility] BLOOD BANK Antibody Negative 06/26 [facility] RESULTS Scrn (06/26/14 5:48 AM) [facility] BLOOD BANK ABO/Rh B POS 06/26 [facility] RESULTS [facility] CHEM PANEL Magnesium 2.0 1.8 - 2.4 06/26 [facility] Lvl /2014 [facility] ELECTROLYTES AGAP 13.8 10.0 - 06/26 [place] 20.0 [facility] ELECTROLYTES eGFR 70 06/26 <sup>1</sup>Re [place]ult Comment: Medical The eGFR is Center calculated using the CKD-EPI formula. In most young, healthy individuals the eGFR will be >90 mL/min/1.73m2. The eGFR declines with age. An eGFR of 60-89 may be normal in some populations, particularly the elderly, for whom the CKD-EPI formula has not been extensively validated. Use of the eGFR is not recommended in the following populations:&l t;br/>
Ind ividuals with unstable creatinine concentrations , including patients and those with serious co-morbid conditions.

Patient s with extremes in muscle mass or diet.

The data above are obtained from the National Kidney Disease Education Program (NKDEP) which additionally recommends that when the eGFR is used in patients with extremes of body mass index for purposes of drug dosing, the eGFR should be multiplied by the estimated BMI. ELECTROLYTES Calcium Lvl 8.8 8.5 - 10.5 06/26 [place] [facility] ELECTROLYTES Chloride Lvl 105 95 - 109 06/26 [place] [facility] ELECTROLYTES CO2 26 24 - 32 06/26 2014 [facility] ELECTROLYTES Potassium 3.8 3.5 - 5.1 06/26 [place] L[place] [facility] ELECTROLYTES Sodium Lvl 141 135 - 145 06/26 [facility] ELECTROLYTES Creatinine 0.8 0.5 - 1.4 06/26 [facility] as l [facility] ELECTROLYTES BUN 16 7 - 22 06/26 2014 [facility] ELECTROLYTES Glucose Lvl 143 70 - 99 06/26 <sup>2</sup>In terpretive Medical Data: Adult Center reference range values reflect the clinical guidelines<br/ >of the [place] [employer]. HEMATOLOGY Eosinophils 1.7 0.0 - 4.0 06/26 [facility] HEMATOLOGY Basophils 0.5 0.0 - 1.0 06/26 [facility] HEMATOLOGY Lymphocytes 20.0 20.0 - 06/26 [place] 40.0 [facility] HEMATOLOGY Monocytes 11.3 2.0 - 12.0 06/26 [facility] HEMATOLOGY Segs 66.5 45.0 - 06/26 [place] 75.0 [facility] HEMATOLOGY Eosinophils 0.1 0.0 - 0.5 06/26 [place] # [facility] HEMATOLOGY Segs-Bands # 4.7 1.5 - 8.1 06/26 [place] [facility] HEMATOLOGY Lymphocytes 1.4 1.0 - 5.5 06/26 [place] # [facility] HEMATOLOGY Monocytes # 0.8 0.0 - 0.8 06/26 [place] /2014 [facility] HEMATOLOGY INR 1.08 0.85 - 06/26 <sup>4</sup>In [place]riel as 1.17 terpretive Medical Data: Center RECOMMENDED RANGES FOR PROTIME INR:
2.0-3.0 for most medical and surgical thromboembolic states.
2.5-3.5 for artificial heart valves and recurrent embolism.

INR SHOULD BE USED ONLY FOR PATIENTS ON STABLE ANTICOAGULANT THERAPY. HEMATOLOGY PT 14.1 12.0 - 06/26 14.7 [facility] HEMATOLOGY PTT 30.5 22.9 - 06/26 <sup>5</sup>In [place]riel as 35. terpretive Medical Data: [facility] Therapeutic Range: 57 - 92 [place] HEMATOLOGY MPV 9.1 7.4 - 10.4 06/26 [facility] HEMATOLOGY MCH 29.5 27.0 - 06/26 31.0 [facility] HEMATOLOGY MCV 89.3 80.0 - 06/26 [place] 98.0 /2014 [facility] HEMATOLOGY Platelet 195 133 - 450 06/26 [facility] HEMATOLOGY RDW 15.5 11.5 - 06/26 14.5 [facility] HEMATOLOGY MCHC 33.0 32.0 - 06/26 36.0 /2014 [facility] HEMATOLOGY WBC 7.1 3.7 - 10.4 06/26 [facility] HEMATOLOGY Hgb 12.7 12.0 - 06/26 16.0 [facility] HEMATOLOGY RBC 4.30 4.20 - 06/26 5.40 /2014 [facility] HEMATOLOGY Hct 38.4 36.0 - 06/26 48.0 /2014 [facility] LIPIDS CHD Risk 6.12 3.90 - 06/26 5.80 [facility] LIPIDS VLDL 77 06/26 [facility] LIPIDS LDL 51 <=99 mg/dL 06/26 [facility] (Calculated) /2014 [facility] LIPIDS HDL 25 >=61 mg/dL 06/26 [facility] LIPIDS Trig 386 <=149 06/26 mg/dL /2014 [facility] LIPIDS Chol 153 <=199 06/26 <sup>3</sup>Re [facility] mg/dL /2014 sult Comment: Medical Specimen Center Slightly Hemolyzed. Pathology Reports No Data Provided for This Section Diagnostic Reports No Data Provided for This Section Consultation Notes No Data Provided for This Section Discharge Summaries No Data Provided for This Section History and Physicals No Data Provided for This Section Vital Signs Vital Sign Value Date Comments Source Respitory Rate 27 01/01/[address] [facility] bruce Center Systolic (mm Hg) 132 01/01/2019 [facility] dical Center Diastolic (mm Hg) 62 01/01/2019 [facility] edical Center Respitory Rate 15 01/01/[address] [facility] bruce Center Systolic (mm Hg) 140 01/01/2019 [facility] dical Center Diastolic (mm Hg) 64 01/01/2019 [facility] edical Center Respitory Rate 16 01/01/[address] [facility] bruce Center Systolic (mm Hg) 134 01/01/2019 [facility] dical Center Diastolic (mm Hg) 63 [facility]/01[facility]2019 [facility] Temperature Oral (F) 99.5 F 01/01/2019 [facility] Height 147.32 cm 12/31/[facility] Weight 97.273 12/31/2018 [facility] BMI Calculated 44.82 12/31/[address] [facility] bruce Center Systolic (mm Hg) 124 01/16/2018 [facility] dical Center Diastolic (mm Hg) 61 01/16/2018 [facility] edical Center Respitory Rate 22 01/16/[address] [facility] bruce Center Systolic (mm Hg) 131 01/16/2018 [facility] dical Center Diastolic (mm Hg) 64 01/16/2018 [facility] edical Center Respitory Rate 15 01/16/[address] [facility] bruce Center Systolic (mm Hg) 154 01/16/2018 [facility] dical Center Diastolic (mm Hg) 81 01/16/2018 [facility] edical Center Respitory Rate 18 01/16/2018 [facility] Center Temperature Oral (F) 97.5 F 01/16/2018 [facility] Height 157.48 cm 01/16/2018 [facility] Weight 96.818 01/16/2018 [facility] BMI Calculated 39.04 01/16/[address] [facility] bruce Center Systolic (mm Hg) 161 06/26/2014 [facility] dical [place] Diastolic (mm Hg) 71 06/26/2014 [facility] [place] Systolic (mm Hg) 147 06/26/2014 [facility] dical Center Diastolic (mm Hg) 71 06/26/2014 [facility] Center Respitory Rate 16 06/26/2014 [facility] Systolic (mm Hg) 131 06/26/2014 [facility] dical [place] Diastolic (mm Hg) 62 06/26/2014 [facility] edical Center Respitory Rate 16 06/26/2014 [facility] Respitory Rate 16 06/26/2014 [facility] Weight 109.545 06/26/2014 [facility] Height 157.48 cm 06/26/2014 [facility] BMI Calculated 44.17 06/26/2014 [facility] Temperature Oral (F) 97.7 F 06/26/2014 [facility] Encounters Location Location Encounter Encounter Reason Attending ADM DC Stat us Source Details Type Number For Provider Date Date Visit [facility] [id number] [facility] 06/26 06/26 [facility] Outpatient Ricardo /2014 [facility] Outpatient [id number] [facility] 01/16 01/17 [facility] Ricardo /2017 [facility] [place] [facility] Bedded [id number] [facility] 12/31 01/01 [facility] Outpatient Ricardo /2018 [facility] Procedures Procedure Code Date Perfomer Comments Source Back [id number] back surgery [facility]<sup>1</sup> with shaved [facility] Carpal tunnel [id number] [facility] Gallbladder [id number] [facility] Kidney stone [id number] [facility] Knee replacement [id number] [facility] Assessment and Plan No Data Provided for This Section Plan of Care No Data Provided for This Section Social History Social History Date Source Social History TypeResponse 06/26[facility]2014 [facility] Never Smoking Status Never smoker; Exposure to Tobacco Smoke None; Cigarette Smoking Last 365 Days No; Reg Smoking Cessation Counseling No entered on: 12/31/18 Family History No Data Provided for This Section Advance Directives No Data Provided for This Section Functional Status No Data Provided for This Section
--- OUTSIDE RECORDS SUMMARY | 2019-10-07 19:10 | XMS REPORT | Summary of Care ---
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 Start : 24-Aug-2018 Active Allergies and Adverse Reactions Name Dates Details sulfa (Allergy) Status: Active Procedures Procedure Dates Details Procedures not documented Immunization Name Dates Details Immunizations not documented Social History Name Dates Details - Status: Name Dates Details Never smoked tobacco (finding) Vital Signs Date Test Result Details No Known Vitals to report Results Date Description Value Details Results not documented Plan of Care Name Dates Details Planned Observations Planned Goals not documented Interventions Provided Medication ChangesCyanocobalamin 1000 MCG/ML Injection Solution - Renew Instructions Name Dates Details Instructions not documented Encounters Appointment; NELI SWAN M.D. On: 23-Aug-2018 9:0 0 Encounter Diagnosis: Problem not documented Appointment; ARI BROWN M.D. On: 23-Aug-2018 9:00 Encounter Diagnosis: Problem not documented Appointment; NELI SWAN M.D. On: 15-Nov-2018 11: 00 Encounter Diagnosis: Problem not documented Appointment; NELI SWAN M.D. On: 13-Dec-2018 11: 30 Encounter Diagnosis: Problem not documented Appointment; NELI SWAN M.D. On: 11-Apr-2019 10: 00 Encounter Diagnosis: Problem not documented
--- OUTSIDE RECORDS SUMMARY | 2019-10-07 19:10 | XMS REPORT | Continuity of Care Document ---
:1935 Author Organization [facility] t Address [address] [place] [id number] Care Team Providers Name Role Phone Asked, Pcp Primary Care Physician Unavailable Jayashree Vasques MD Attending Clinician BENY Attending Clinician Unavailable Dilip Silva Attending Clinician STEPHANIE Attending Clinician Unavailable Dilip Silva Admitting Clinician Payers Payer Name Policy Policy Number Effective Expiration Source Type Date Date MEDICAREMEDICARE PART xxxxxxxxxxx 2000 Devin Allen AND 00:00:00 Religious B[facility]xxx2000[facility] [place] Condition Condition Condition Status Onset Resolution Last Treating Co mments Source Name Details Category Date Date Treatment Clinician Date CCL / LHC Diagnosis Active 2019-08-22 Memoria W/ POSS 11-20 11:10:00 l PCI CCL / 00:00: Ceasar DOHERTY 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 00:00: st 00 AFIB Diagnosis Active 2017-022018-01-16 Mem oria 03-07 07:32:00 l AFIB 00:00: [place] 00 Active 01/05/2018 [facility] Electrolyt Electrolyt Disease Active 2017-02 [place] e and e and 0-24 Methodi fluid fluid 00:00: st disorder disorder 00 Atrial Atrial Disease Active 2017-02 Mittla fibrillati fibrillati 0-24 Me thodi on, on, 00:00: st persistent persistent 00 DX:ABDOMIN Diagnosis Active 2014-08-14 Memoria AL STRESS 06-25 12:24:00 l DYSPNEA 00:00: [place] DX:ABDOMIN 00 AL STRESS DYSPNEA Active 06/25/2014 [facility] Myopathy Myopathy Problem Active [facility] [place] [facility] Diabetic Diabetic Problem Active [facility]ive rs [facility]neurop [facility]neurop [facility] Vitamin Vitamin Problem Active [facility] B12 B12 [place] deficiency [place] [facility] Pernicious Pernicious Problem Active U nivers anemia anemia [facility] [place] [facility] Post Post Problem Active [facility] procedure procedure [place] of discomfort discomfort [place] [facility] [facility] Swelling Swelling Problem Active [facility] [place] [facility] Arm pain Arm pain Problem Active [facility] [place] [facility] Atrial Problem Resolve 2019-01-03 Tarik mark fibrillati d 22:18:31 l on Atrial Ceasar (disorder) fibrillati on (disorder) Resolved Problem 01/03/2019 [facility] Diabetes Problem Resolve 2019-01-03 Me moria mellitus d 22:18:31 l (disorder) Diabetes He rmann mellitus (disorder) Resolved Problem 01/03/2019 [facility] Hyperchole Problem Resolve 2019-01-03 Memoria sterolemia d 22:18:31 l (disorder) Patrick n Hyperchole sterolemia (disorder) Resolved Problem 01/03/2019 [facility] Hypertensi Problem Resolve 2019-01-03 Memoria ve d 22:18:31 l disorder, Ceasar systemic Hypertensi arterial ve (disorder) disorder, systemic arterial (disorder) Resolved Problem 01/03/2019 [facility] Thyroid Problem Resolve 2014-06-29 Mem oria structure d 03:25:12 l (body Thyroid Ceasar structure) structure (body structure) Resolved Problem 06/29/2014 1hypo [facility] OTHER Diagnosis Active 2018-01-16 Mem oria FORMS OF 07:32:00 l DYSPNEA OTHER Ceasar FORMS OF DYSPNEA Active [facility] Unspecifie Problem 2017-022018-08-06 2018-08-06 Memoria d atrial 03-25 11:11:11 11:11:11 l fibrillati 04:33: Patrick n on Unspecifie 17 d atrial fibrillati on 01/23/2018 08/06/2018 [facility] Allergies, Adverse Reactions, Alerts Allergy Allergy Status Severity Reaction(s) Onset Inactive Treating Comm ents Source Name Type Date Date Clinician Sulfasal Propensi Active Rash [place] azine ty to 9-10 Methodi adverse 00:00: st reaction 00 s to drug Adhesive Propensi Active Tears [place] ty to 04-23 skin Methodi adverse 00:00: st reaction 00 s to drug sulfa Allergy Active Univers to drug ity of ([facility] Physici ans sulfa sulfa Active Memoria drugs drugs l [place] Adhesive Adhesive Active Memori a Tape Tape l Ceasar Family History Family Member Diagnosis Comments Start Date Stop Date Source [facility] Social History Social Habit Start Date Stop Date Quantity Comments Source Sex Assigned At [facility] ethodist Alcohol intake 2018-09-17 2018-09-17 Current [facility] 00:00:00 00:00:00 non-drinker of alcohol ([facility]) Social History 2014-06-26 2014[facility]06-[facility] 12:26:50 12:26:50 Smoking Status Start Date Stop Date Source Never smoker [facility] Medications Ordered Filled Start Stop Current Ordering Indication Dosage Frequency Signature Comments Components Source Medication Medication Date Date Medication? Clinician (SIG) Name Name Famotidine 2018-02 No Notes: Memor ia 20 MG Oral 1-05 (Same as: l Tablet 15:00: Pepcid) Ceasar 00 Thyroxine 2018-02 No Notes: Memori a 1-05 Take 1 l 15:00: hour Ceasar 00 before or 2 hours after meal; Enteral feeds may interefere with the absorption of this medication . (Same as: Levothroid ) Lisinopril 2018-02 No Notes: Memor ia 1-05 (Same as: l 15:00: Prinivil) Ceasar 00 24 HR 2018-02 No Notes: Memoria mirabegron 1-05 (Same as: l 50 MG 15:00: Myrbetriq [place] Extended 00 ER) Release Non-Formul Tablet sona [Myrbetriq] rosuvastati 2018-02 No Notes: Tarik mark n 1-05 (Same As: l 15:00: Crestor) Plavix 2018-02 No Notes: Memoria 1-05 (Same As: l 15:00: Plavix) Eliquis 2018-02 No Notes: Memoria 1-05 Same as: l 15:00: Eliquis [place] 00 clopidogrel 2018-02 Yes 75 mg = 1 M emoria 75 mg oral 1-05 tab, PO, l tablet 13:00: Daily, # [place] 00 90 tab, 3 Refill(s) Epinephrine 2018-02 No Route: Tarik mark 0.01 MG/ML 1-05 SUB-Q, l / Lidocaine 08:00: Dosing Herm ciaran Hydrochlori 00 Weight de 10 MG/ML 97.273, Injectable kg, ONCE, Solution Start date: 01/01/19 2:00:00 SIZE STAMPER, Stop date: 01/01/19 2:00:00 SIZE STAMPER insulin 2018-02 No insulin Memoria degludec 1-05 degludec, l 03:30: 14 unit, Ceasar 00 Route: SUB-Q, Daily, 12/31/18 21:30:00 SIZE STAMPER, Duration: 30 day, Stop date: 01/30/19 9:00:00 SIZE STAMPER, 0 Eliquis 2018-02 No 5 mg, Memoria 05 Route: PO, l 03:00: Drug form: [place] 00 TAB, Q12H, Dosing Weight 97.273, kg, Start date: 12/31/18 21:00:00 SIZE STAMPER, Duration: 30 day, Stop date: 01/30/19 9:00:00 SIZE STAMPER Humalog 2018-02 No Notes: Memoria 1-04 (Same as: l 23:28: Humalog) [place] 00 Roll in palms of hands gently; Do not shake vigorously . WASTE: F/P - Black; E - Municipal Trash Bin Stable for 28 days at room temperatur e. Expires in days from ____Date metoprolol 2018-02 No Notes: Memor ia tartrate 1-04 (Same as: l 23:00: Lopressor) Insulin, 2018-02 No Route: Memoria Aspart, 1-04 SUB-Q, l Human 22:30: TID-Before Patrick n 00 Meals, Dosing Weight 97.273, kg, Start date: 12/31/18 16:30:00 SIZE STAMPER, Duration: 30 day, Stop date: 01/30/19 11:30:00 SIZE STAMPER Dextrose 2018-02 No 12.5 gm, Memor ia 50% Syringe -04 25 mL, l 20:40: Route: IVP, Drug Form: INJ, Dosing Weight 97.273, kg, PRN, PRN Blood Glucose Results, Start date: 12/31/18 14:40:00 SIZE STAMPER, Duration: 30 day, Stop date: 01/30/19 14:39:00 SIZE STAMPER, 0 Glucagon 2018-02 No 1 mg, Memoria 1- Route: IM, l 20:40: Drug form: PDR/INJ, PRN, Dosing Weight 97.273, kg, PRN Blood Glucose Results, Start date: 12/31/18 14:40:00 SIZE STAMPER, Duration: 30 day, Stop date: 01/30/19 14:39:00 SIZE STAMPER, 0 Insulin 2018-02 No Notes: Memoria Lispro 1-04 (Same as: l 20:40: Humalog) Roll in palms of hands gently; Do not shake vigorously . WASTE: F/P - Black; E - Municipal Trash Bin Stable for 28 days at room temperatur e. Expires in days from ____Date clopidogrel 2018-02 No 75 mg, PO, Memoria 75 MG Oral 1-04 Daily, 0 l Tablet 20:36: Refill(s) Patrick n [Plavix] 00 Sodium 2018-02 No 750 mL, Memoria Chloride 1-04 Rate: 75 l 0.9% IV 750 20:29: ml/hr, Herm ciaran mL 00 Infuse over: 10 hr, Route: IV, Dosing Weight 97.273 kg, Total Volume: 750, Start date: 12/31/18 14:29:00 SIZE STAMPER, Duration: 10 hr, Stop date: 01/01/19 0:28:00 SIZE STAMPER, 2.04, m2, 0 Nitroglycer 2018-02 No Notes: Tarik mark in 03-02 (Same l 20:29: as:Nitroqu [place] 00 ick, Nitrostat) "Do Not Crush" Sublingual tablet insulin 2018-02 Yes 14un, Memoria degludec 03-02 SUB-Q, l 15:55: Daily, 0 Ceasar 00 Refill(s) Insulin, 2018-02 Yes 4units, Memori a Aspart, 03-02 SUB-Q, l Human 15:55: TID-Before Patrick n 00 Meals, 0 Refill(s) rosuvastati 2018-02 Yes 10 mg = 1 M emoria n 10 mg 1-04 tab, PO, l oral tablet 15:55: Daily, 0 He rmann 00 Refill(s) Famotidine 2018-02 Yes 20 mg = 1 Me moria 20 MG Oral -04 tab, PO, l Tablet 15:55: Daily, 0 [place] 00 Refill(s) 24 HR 2018-02 Yes 50 mg = 1 Memoria mirabegron 1-04 tab, PO, l 50 MG 15:55: Daily, # [place] Extended 00 30 tab, 0 Release Refill(s) Tablet [Myrbetriq] apixaban 5 2018-02 Yes 5 mg, PO, Me moria MG Oral 1-04 Q12H, 0 l Tablet 15:55: Refill(s) Patrick n [Eliquis] 00 Furosemide 2018-02 Yes 40 mg = 1 Me moria 40 MG Oral 1-04 tab, PO, l Tablet 15:55: BID, 0 [place] 00 Refill(s) Aspirin 325 2018-02 No 325 mg, 1 M emoria MG Oral 1-04 tab, l Tablet 15:48: Route: PO, Jenny nn 00 ONCE, Dosing Weight 97.273, kg, Start date: 12/31/18 9:48:00 SIZE STAMPER, Stop date: 12/31/18 9:48:00 SIZE STAMPER Cyanocobala Cyanocobala Yes SUUR INJECT 1 Univers min 1000 min 1000 6-28 BILICILER ML it y of MCG/ML MCG/ML 00:00: M.D. INTRAMUSCU Adriel as Injection Injection 00 LARLY ONCE Physici Solution Solution A MONTH ans apixaban 2020- No 5mg Q.5D Take 1 [place] (ELIQUIS) 5 4-24 04-23 tablet (5 Me thodi mg tablet 00:00: 23:59 mg total) st 00 :00 by mouth 2 (two) times a day. furosemide Yes 40mg QD Take 40 mg [place] (LASIX) 40 4-19 by mouth Metho di mg/4 mL 11:59: daily. st solution 08 oral solution lisinopril Yes 2.5mg QD Take 2.5 [place] (PRINIVIL,Z 4-19 mg by Methodi ESTRIL) 2.5 11:59: mouth st mg tablet 08 daily. lansoprazol Yes 30mg QD Take 30 mg [place] e 4-19 by mouth Methodi (PREVACID) 11:59: daily. st 30 MG 08 capsule dextran Yes 1[drp] Administer Ho adamaris 70-hypromel 4-19 1 drop to Met hodi lose 00:00: both eyes st (ARTIFICIAL 00 as needed TEARS) (dry 0.1-0.3 % eyes). drops aspirin 2017-02- No 81mg QD Take 1 Kyrie (ECOTRIN) 0-30 10-30 tablet (81 Met hodi 81 MG 00:00: 23:59 mg total) st enteric 00 :00 by mouth coated daily. tablet famotidine 2017-02- No 20mg Q.5D Take 1 [place] (PEPCID) 20 0-29 10-29 tablet (20 M ethodi MG tablet 00:00: 23:59 mg total) st 00 :00 by mouth 2 (two) times a day. metoprolol Yes 12.5mg Q.5D 12.5 mg 2 [place] tartrate 6-18 (two) Methodi (LOPRESSOR) 00:00: times a st 25 mg 00 day. tablet glimepiride Yes [place] (AMARYL) 1 5-18 Methodi MG tablet 00:00: st 00 levothyroxi Yes [place] ne 5-18 Method[facility] (SYNTHROID, 00:00: st LEVOXYL) 00 150 mcg tablet simvastatin Yes [place] (ZOCOR) 10 5-18 Methodi MG tablet 00:00: st 00 rivaroxaban Yes 20 mg = 1 M emoria 20 MG Oral 4-30 tab, PO, l Tablet 11:04: QPM, 0 [place] [Xarelto] 00 Refill(s) glimepiride Yes 1 mg = 1 Me moria 1 mg oral 4-30 tab, PO, l tablet 11:04: BID, # 30 Patrick n 00 tab, 0 Refill(s) lisinopril Yes 2.5 mg = 1 M emoria 2.5 mg oral 4-30 tab, PO, l tablet 11:04: Daily, # [place] 00 30 tab, 0 Refill(s) levothyroxi Yes 150 Memori a ne 150 mcg 4-30 microgram l (0.15 mg) 11:04: = 1 tab, Herm ciaran oral tablet 00 PO, Daily, # 30 tab, 0 Refill(s) simvastatin Yes 10 mg = 1 M emoria 10 mg oral 4-30 tab, PO, l tablet 11:04: Bedtime, # Jenny nn 00 30 tab, 0 Refill(s) solifenacin Yes 10 mg = 1 M emoria succinate 4-30 tab, PO, l 10 MG Oral 11:04: Daily, # Her frost Tablet 00 30 tab, 0 [VESICARE] Refill(s) metoprolol Yes 25 mg = 1 Me moria tartrate 25 4-30 tab, PO, l mg oral 11:04: BID, # 180 Herm ciaran tablet 00 tab, 0 Refill(s) Aspirin 81 Yes 81 mg = 1 Me moria MG Enteric 4-30 tab, PO, l Coated 11:04: Daily, # 0 Jenny nn Tablet 00 tab, 0 Refill(s) Vital Signs Vital Name Observation Time Observation Value Comments Source BP Systolic 2019-04-11 99 mm[Hg] Location: [facility] 10:44:00 Position: [place] [facility] Sitting BP Diastolic 2019-04-11 60 mm[Hg] Location: [facility] 10:44:00 Position: [place] [facility] Sitting Height 2019-04-11 62 [in_us] [facility] 10:44:00 [place] [facility] Weight 2019-04-11 209 [lb_av] [facility] 10:44:00 [place] [facility] s Body Mass Index 2019-04-11 38.23 kg/m2 University o f Calculated 10:44:00 [place] [facility] Heart Rate 2019-04-11 49 /min [facility] 10:44:00 [place] [facility] Respitory Rate 2019-01-01 [facility] 12:15:00 Systolic (mm Hg) 2019-01-01 [facility] 12:15:00 Diastolic (mm Hg) 2019-01-01 [facility] 12:15:00 Respitory Rate 2019-01-01 [facility] c[facility]an 11:00:00 Systolic (mm Hg) 2019-01-01 [facility]mann 11:00:00 Diastolic (mm Hg) 2019-01-01 [facility] ermann 11:00:00 Respitory Rate 2019-01-01 [facility] c[facility]an 09:00:00 Systolic (mm Hg) 2019-01-01 [facility]mann 09:00:00 Diastolic (mm Hg) 2019-01-01 [facility] ermann 09:00:00 Temperature Oral 2019-01-01 99.5 F [facility] Rory rmann (F) 01:00:00 Height 2018-12-31 147.32 cm Geoffrey Nguyen n 15:23:00 Weight 2018-12-31 Geoffrey Goldmanan n 15:23:00 BMI Calculated 2018-12-31 [facility] 15:23:00 BP Systolic 2018-08-23 120 mm[Hg] Location: [facility] 09:11:00 Position: [place] Physician s Sitting BP Diastolic 2018-08-23 52 mm[Hg] Location: [facility] 09:11:00 Position: [place] Physician s Sitting Height 2018-08-23 62 [in_us] [facility] 09:11:00 [place] [facility]ician s Weight 2018-08-23 212 [lb_av] [facility] 09:11:00 [place] Physician s Body Mass Index 2018-08-23 38.78 kg/m2 University o f Calculated 09:11:00 [place] [facility] Temperature 2018-08-23 97.2 [degF] Method: Oral [facility] 09:11:00 [place] [facility] Heart Rate 2018-08-23 61 /min Location: [facility] 09:11:00 Apical; [place] [facility] Systolic (mm Hg) 2018-01-16 [facility] 16:00:00 Diastolic (mm Hg) 2018-01-16 [facility] 16:00:00 Respitory Rate 2018-01-16 [facility] c[facility]an 16:00:00 Systolic (mm Hg) 2018-01-16 [facility]mann 15:55:00 Diastolic (mm Hg) 2018-01-16 [facility] 15:55:00 Respitory Rate 2018-01-16 [facility] c[facility]an 15:55:00 Systolic (mm Hg) 2018-01-16 [facility] 15:50:00 Diastolic (mm Hg) 2018-01-16 [facility] 15:50:00 Respitory Rate 2018-01-16 [facility] c[facility]an 15:50:00 Temperature Oral 2018-01-16 97.5 F [facility] Rory rmann (F) 13:45:00 Height 2018-01-16 157.48 cm Memorial Patrick n 13:32:00 Weight 2018-01-16 [facility] Patrick n 13:32:00 BMI Calculated 2018-01-16 [facility] 13:32:00 Systolic (mm Hg) 2014-06-26 [facility] 16:15:00 Diastolic (mm Hg) 2014-06-26 [facility] 16:15:00 Systolic (mm Hg) 2014-06-26 [facility] 16:00:00 Diastolic (mm Hg) 2014-06-26 [facility] 16:00:00 Respitory Rate 2014-06-26 [facility] c[facility]an 16:00:00 Systolic (mm Hg) 2014-06-26 [facility]mann 15:45:00 Diastolic (mm Hg) 2014-06-26 [facility] 15:45:00 Respitory Rate 2014-06-26 [facility] c[facility]an 15:45:00 Respitory Rate 2014-06-26 [facility] c[facility]an 15:30:00 Weight 2014-06-26 [facility] Patrick n 10:39:00 Height 2014-06-26 157.48 cm Memorial Patrick n 10:39:00 BMI Calculated 2014-06-26 [facility] 10:39:00 Temperature Oral 2014-06-26 97.7 F [facility] Rory rmann (F) 10:30:00 Procedures Procedure Date / Time Performing Clinician Source Performed MRI LUMBAR SPINE WO 2019-07-11 11:02:00 Boyd Vasques on Religious CONTRAST [QL] VITAMIN B12 2019-04-11 00:00:00 [facility] Physicians [QLH] METHYLMALONIC ACID 2019-04-11 00:00:00 [facility] Extremity upper 2018-08-27 00:00:00 [facility] (non-vascular) [id number] Physicians [QLH] INTRINSIC FACTOR 2018-08-24 00:00:00 Unive [facility] BLOCKING ANTIBODY Physicians [Q] PARIETAL CELL AB 2018-08-24 00:00:00 [facility] W/REFL TITER Physicians [UTP] EMG 2018-08-23 00:00:00 [facility] Physicians [QLH] VITAMIN B12 2018-08-23 00:00:00 [facility] Physicians [QLH] VITAMIN B1, WHOLE 2018-08-23 00:00:00 [facility] BLO[facility] [QLH] VITAMIN B6 2018-08-23 00:00:00 [facility] Physicians [QLH] COPPER 2018-08-23 00:00:00 [facility] Physicians [QLH] FOLATE, SERUM 2018-08-23 00:00:00 [facility] Physicians [QLH] Zinc Lvl 2018-08-23 00:00:00 [place] [facility] Physicians [QLH] SHARI PANEL, 2018-08-23 00:00:00 [facility] COMPREHENSIVE Physicians [QLH] HEMOGLOBIN A1c 2018-08-23 00:00:00 [facility] Physicians [QLH] IRON, TOTAL 2018-08-23 00:00:00 [facility] Physicians [QLH] METHYLMALONIC ACID 2018-08-23 00:00:00 Uni [facility] Physicians [QLH] SED RATE BY 2018-08-23 00:00:00 [facility] MODIFIED WESTERGREN Physicians [QLH] SJOGRENS ANTIBODIES 2018-08-23 00:00:00 [facility] (SS-A,SS-B[facility] Physicians [QLH] RHEUMATOID FACTOR 2018-08-23 00:00:00 [facility]] C-REACTIVE PROTEIN 2018-08-23 00:00:00 Uni [facility] Physicians [QLH] CREATINE KINASE, 2018-08-23 00:00:00 Unive [facility] TOTAL Physicians [QLH] CBC (INCLUDES 2018-08-23 00:00:00 [facility] DIFF/PLT) Physicians [QLH] T4, TOTAL 2018-08-23 00:00:00 [facility] (THYROXINE) Physicians [QLH] TSH, 3RD GENERATION 2018-08-23 00:00:00 [facility] [place] W/REFLEX TO FT4 Physicians [QLH] VITAMIN E 2018-08-23 00:00:00 [place] [facility] (TOCOPHEROL) Physicians [QLH] VITAMIN D, 2018-08-23 00:00:00 [facility] 25-HYDROXY, LC/MS/MS Physicians [QL] IMMUNOFIXATION, 2018-08-23 00:00:00 [facility] SERUM Physicians [QL] IMMUNOFIXATION, 2018-08-23 00:00:00 [facility] URINE Physicians [QLH] CMP W/EGFR 2018-08-23 00:00:00 [facility] Physicians [QL] PARANEOPLASTIC 2018-08-23 00:00:00 [facility] AUTOANTIBODY EVAL. S Physicians Back care<sup>1</sup> [facility] Carpal tunnel release [facility] Gallbladder excision [facility] Kidney stone analysis [facility] Knee replacement [facility] Plan of Care Planned Activity Planned Date Details Comments Source Future Scheduled 2019-09-28 INFLUENZA VACCINE [place] Religious Test 00:00:00 [code = INFLUENZA VACCINE] Diagnostic Test 2018-08-23 [UTP] EMG [code = [facility] Pending 00:00:00 [UTP] EMG] Physicians Future Scheduled 2000 65+ PNEUMOCOCCAL [place] Religious Test 00:00:00 VACCINE (1 of 2 - PCV13) [code = 65+ PNEUMOCOCCAL VACCINE (1 of 2 - PCV13)] Future Scheduled 1985 SHINGLES VACCINES [place] Religious Test 00:00:00 (#1) [code = SHINGLES VACCINES (#1)] Future Scheduled 1945 DIABETIC FOOT EXAM [place] [facility] Test 00:00:00 [code = DIABETIC FOOT EXAM] Future Scheduled 1945 URINE MICROALBUMIN [place] [facility] Test 00:00:00 [code = URINE MICROALBUMIN] Future Scheduled 1935 DIABETIC RETINAL EYE Chandrika ston Religious Test 00:00:00 EXAM [code = DIABETIC RETINAL EYE EXAM] Encounters Start End Encounter Admission Attending Care Care Encounter Source Date/Time Date/Time Type Type Clinicians Facility Department ID 2019-07-11 2019-07-11 Outpatient ESTELITA, [facility] [id number] [place] 00:00:00 00:00:00 BOYD 350 Method i 2019-07-11 2019-07-11 Outpatient ESTELITA, [facility] [id number] [place]ives 00:00:00 00:00:00 BOYD 469 Method i 2019-07-04 2019-07-04 Outpatient ESTELITA [facility] [id number] Rives 00:00:00 00:00:00 BOYD 695 Method i 2019-04-11 2019-04-11 SHIMA Uribe Neurology - [id number] Univers 10:00:00 10:00:00 t[facility] [place] [facility] 2018-12-31 2019-01-01 Outpatient Ricardo, [facility] [id number] 09:04:00 08:40:00 Ayaan Ashlee Cherry 2018-12-31 2018-12-31 Outpatient [facility]2 [facility] 09:04:00 09:04:00 2018-12-13 2018-12-13 SHIMA Uribe [facility] [id number] Univers 11:30:00 11:30:00 t; Jus QUINTEROS Dalia QUINTEROS M.D. Physi ci ans 2018-11-15 2018-11-15 SHIMA Uribe [facility] [id number] Univers 11:00:00 11:00:00 t; Jus QUINTEROS [place] SUUR, M.D. Physi ci ans 2018-08-23 2018-08-23 SHIMA Uribe Neurology - [id number] Univers 09:00:00 09:00:00 t; [facility] M.[facility]. [place] [facility] ci ans 2018-08-23 2018-08-23 SHIMA Tuttle Neurology - [id number] Univers 09:00:00 09:00:00 t; ARI BROWN [place] ity of KRISTIN, M.D. 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 There are some chronic right-sided wedging deformities at L2 and L3 and left-sided wedging deformity at L4-L5 from the scoliosis. There is approximately 30 degrees leftward curvature centered at L2-3.There is leftward listhesis of L3 and rightward listhesis of L1. There is mild retrolisthesis of L1, L2 and L3 and mild anterolisthesis of L5.No acute osseous edema to suggest acute fracture.Soft tissues shows no mass, adenopathy or aneurysm. The partially visualized spinal cord and the conus are unremarkable. Axial images through the disc spaces demonstrate the following:T12-L1: There is disc bulge with facet hypertrophy and posterior spondylosis with mild effacement of ventral thecal sac and lateral recesses. The foramina are patent.L1-L2: There is complete loss of disc height with disc bulge with facet hypertrophy with moderate narrowing of the lateral recesses and canal which appears slightly progression prior exam. Disc osteophyte complex and facet spurring results in moderate right foraminal narrowing with circumferential effacement of the peroneal fat and mild abutment of the exiting nerve root. Left foramen is patent. The right foraminal narrowing appears progressed.L2-L3: There is diffuse disc bulge with facet and ligamentum flavum hypertrophy with moderate narrowing of the canal and lateral recesses which is slightly progressed. Disc osteophyte complex and facet spurring results in moderate severe right and mild left foraminal narrowing. Correlate for significance.L3-L4: There is complete loss of disc height with disc bulge and facet hypertrophy. Leftward listhesis of L3 results in distortion of the thecal sac with severe narrowing of left lateral recess and moderate severe narrowing of the canal. There is facet hypertrophy and spurring with a left foraminal protrusion with severe bilateral foraminal narrowing. Correlate for exiting radiculopathies. Findings appear stable to slightly progressed.L4-L5: There is loss of disc height with disc bulge and facet hypertrophy with moderate narrowing of the canal and lateral recesses. Laminectomy changes are noted. Disc osteophyte complex and facet spurring with loss of disc height results in severe left and mild to moderate right foraminal narrowing. Findings are grossly stable.L5-S1: There is facet hypertrophy and disc bulge with moderate bilateral lateral recesses. The central thecal sac is patent. There is severe left and moderate right foraminal narrowing. Findings are grossly stable.The partially visualized upper sacrum is unremarkable.IMPRESSI ON: There is scoliosis and multilevel spondylosis resulting in significant lateral recess and foraminal stenoses as detailed above. Findings are progressed at multiple levels as detailed above.[id number] [[facility]] METHYLMALONIC ACID 2019-04-11 12:09:00 Test Item Value Reference Range Interpretation Comme nts METHYLMALONIC ACID (test 438 nmol/L 87-318 Thi s test was developed and its code = METHYLMALONIC ACID) a nalytical performancecharacteristics have [facility] deter [facility]. It has not beencleared or approved by FDA . This assay has been validatedpursua nt to the CLIA regulations and is used for clinicalpurpose s.SPECIMEN RECEIVED DATE AND TIME: [id number] [facility]] VITAMIN [id number] 12:09:00 Test Item Value Reference Range Interpretation Comments VITAMIN B12 (test 744 pg/ml 200-1100 N SPECIMEN R ECEIVED DATE code = VITAMIN B12) AND TIME : [facility] [id number] 10:08:000.053[facility]annCHEM [id number] 10:08:000.86[facility] HermannCHEM FNOCK5475-18-89 10:08:0063[facility] LinyxzzGIRPPFBLHG6490-35-97 10:08:009.3[facility] Ce[facility]ar YRDNHKICVE1247-05-09 10:08:0029.1[facility]annBLOOD BANK [id number] 15:27:00Negative (12/31/18 9:27 AM)[facility] HermannCARDIAC EAFTDGP4470-89-92 15:27:000.070[facility] HermannCHEM LAAZH7289-19-35 15:27:90635Suxdijvp [place] CHEM RIYCQ0188-02-84 15:27:0034[facility] HermannCHEM ZRGVM8583-75-26 15:27:001.02 [facility]annCHEM DDCYP8573-13-72 15:27:11536Mbniovmc HermannCHEM PANEL 2018-12-31 15:27:003.8[facility] HermannCHEM FCVBH6350-45-44 15:27:01242Qblqmozp HermannCHEM FVTZM8434-58-21 15:27:0031[facility] HermannCHEM WHWIL4407-89-04 15:27:009.3[facility] HermannCHEM PIVVD0179-65-26 15:27:0051[facility] HermannCHEM IKFYE6353-25-88 15:27:008.8[facility] HermannCHEM BTXYW4385-65-62 15:27:002.2 [facility]annCHEM DCCLD6575-69-29 15:27:003.1[facility] HermannHEMATOLOGY 2018-12-31 15:27:009.4[facility] XpfzepiPIZPBEUTGY3384-77-01 15:27:003.92[facility] UfjskpfBDFSRJIKLI5552-00-48 15:27:0010.2[facility] OgrzyckDWSJREPFKH2109-51-32 15:27:0031.6[facility] NqzsujgQOCFBATFBM0798-45-91 15:27:0080.7[facility] PEAXYAAWJX7252-33-95 15:27:00 Test Item Value Reference Range Interpretation Comments MCH (test code = MCH) 26.0 pg 27.0-31.0 [facility] CgruzheDHLPBBSFZH6941-56-25 15:27:0032.2[facility] HermannHEMATOLOGY 2018-12-31 15:27:0018.4[facility] MwatltsBSULSVODGX3552-19-68 15:27:93433Bcqhauon IfbwkhwQHZPAWNBLF5223-92-15 15:27:008.5[facility] ZcyzfddCYIGLAHZLV8725-46-82 15:27:00 Test Item Value Reference Range Interpretation Comments PT (test code = PT) 14.2 s 12.0-14.7 [facility] XsvbgxiPMJWAEXQIQ6302-80-59 15:27:00 Test Item Value Reference Range Interpretation Comments PTT (test code = PTT) 28.8 s 22.9-35.8 [facility] MjqvbwdKRDKBRVPCG6292-54-27 15:27:00 Test Item Value Reference Range Interpretation Comments INR (test code = INR) 1.12 1 0.85-1.17 [facility] VxvfkogPOTBXUOKXZ2850-21-57 15:27:0070.0[facility] HermannHEMATOLOGY 2018-12-31 15:27:0020.5[facility] OyjjvxnBNYPKZEHUQ8104-57-14 15:27:008.7[facility] McogmugHTYNYFSMDP4937-52-39 15:27:000.6[facility] OzldwreWQZAJRJCCG3404-29-27 15:27:000.2[facility] RkcyiocFWWBUFGVUB1046-94-17 15:27:006.6[facility] [place] YNNJXJUKQU7786-10-13 15:27:001.9[facility] OeutfpsPTMQVNCKOJ6395-48-57 15:27:000.8 [facility] IklwgaxTILDFAZAPL4263-33-67 15:27:000.1[facility] [place][H] Immunofixation Eletrophoresis Bkztn7373-99-32 15:40:01 Test Item Value Reference Range Interpretation Comments Urine Immunofixation SEE NOTES No immu noreactivity is Electrophoresis present in a ny of the Pattern (test code = lanes Urine Immunofixation Electrophoresis Pattern) Urine Immunofixation SEE NOTES Immunof ixation Electrophoresis electrophore sis did Interpretation (test not det ect any code = Urine immunoreactivit y in Immunofixation theexamined u rine Electrophoresis specimen. No Interpretation) monoclonal immunoglobulins or free kappa or lambdalight jesus manuel ins are identified.The EMR has been reviewed f or relevant histor y.Fran personally revi ewed the test result s and concur with the resident'hannah herring on. CPT 92266-INCbrwkzf mariana Signature Todd Lyons MD 0 08/27/18 14:55 PM [facility]] HEMOGLOBIN [id number] 13:54:01 Test Item Value Reference Range Interpretation Comments Hemoglobin A1c; Above High Threshold 9.0 % <=5.6 (test code = 4548-4) [facility]] VITAMIN D, 25-HYDROXY, LC/MS/[id number] 13:54:01 Test Item Value Reference Range Interpretation Comments Vitamin D, 25-OH, 33.8 ng/ml 30.0-100.0 Reference range is based Total (test code on recommen dations in the = Vitamin D, EndocrineSociet y Clinical 25-OH, Total) Practice Guide line (J Clin Endocrinol Bbfum6266;96:19 11-1930) [facility]] FOLATE, [id number] 13:54:01 Test Item Value Reference Range Interpretation Comments Folate Level (test code = 2284-8) 30.4 ng/ml >=3.0 [facility]] TSH, 3RD GENERATION W/REFLEX TO FT4 2018-08-23 13:54:01 Test Item Value Reference Range Interpretation Comments TSH (test code = 32123-6) 0.422 {uIU/ml} 0.360-3.740 [facility]] VITAMIN [id number] 13:54:01 Test Item Value Reference Range Interpretation Comments Vitamin B12 Level; Below Low 108 pg/ml 254-1320 Threshold (test code = 2132-9) [facility]] T4, TOTAL (THYROXINE)2018-08-23 13:54:01 Test Item Value Reference Range Interpretation Comments Thyroxine (test code = 3026-2) 10.1 ug/dL 4.7-13.3 [facility]] RHEUMATOID [id number] 13:54:01 Test Item Value Reference Range Interpretation Comments Rheumatoid Factor Quantitative (test <10 0-20 code = 59397-6) [facility]] CMP [id number]/[id number] 13:54:01 Test Item Value Reference Range Interpretation Comments Sodium Level 141 {mEq/l} 135-145 (test code = 2951-2) Potassium Level 4.5 {mEq/l} 3.5-5.1 (test code = 2823-3) Chloride Level 105 {mEq/l} 95-109 (test code = 2075-0) Carbon Dioxide; 12 {mEq/l} 24-32 Below Low Threshold (test code = 8-9) AGAP; Above High 28.5 {mEq/l} 10.0-20.0 Threshold (test code = 42871-8) Glucose Lvl; 168 mg/dl 70-99 Adult reference range Above High values reflect the Threshold (test clinical desiree delinesof the code = 2345-7) [employer]. Creatinine Lvl 1.30 mg/dl 0.50-1.40 (test code = 2160-0) Blood Urea 33 mg/dl 7-22 Nitrogen; Above High Threshold (test code = 3094-0) BUN/Creatinine 25 6-25 Ratio (test code = 3097-3) Total Protein 6.7 g/dl 6.4-8.4 (test code = 2885-2) Albumin Lvl (test 3.5 g/dl 3.5-5.0 instrument error. repeat code = 1751-7) ALB level at 08/24/2018 10:44 by Ugo Rodriguez at 08/24/2018 10:44 by susanna myrick correction o rt. Faxresult [phone] cted from 1.0 g/dL [LOW] on 08/24/18 10:45: 16 CDT by Susanna King. Globulin (test 3.2 g/dl 2.7-4.2 instrument er ror. repeat code = 96406-8) ALB level at 08/24/2018 10:44 by Ugo Rodriguez at 08/24/2018 10:44 by susanna myrick correction repo rt. Faxresult [phone] cted from 5.7 g/dL [HI] o n 08/24/18 10:45:16 CDT by Susanna King. A/G Ratio (test 1.1 0.7-1.6 instrument e rror. repeat code = 1759-0) ALB level at 08/24/2018 10:44 by Jamilah Parknifer, J at 08/24/2018 10:44 by susanna myrick correction repo rt. Faxresult [phone] cted from 0.2 [LOW] on 10:45:16 CDT by Susanna King. Calcium Level 9.1 mg/dl 8.5-10.5 Total (test code = 87439-8) ALT (test code = 33 u/l 0-65 1743-4) AST (test code = 19 u/l 0-37 40239-1) Alk Phos (test 124 u/l 39-136 code = 1783-0) Bili Total (test 0.4 mg/dl 0.2-1.3 code = 1975-2) eGFR (test code = 38 The eGFR i s calculated 60572-3) {ML/MIN/1.7} using the CKD-E PI formula. In mos t young, healthyindividu als the eGFR will be >9 0 mL/min/1.73m2. The eGFR declines with a ge. AneGFR of 60-89 may be normal in some population s, particularly th e elderly, forwhom the CKD -EPI formula has not been extensively prashanth idated. Use of the eGFR isnot recommended in the following populations:Ind ividuals with unstable c reatinine concentrations, including patient s and those with seri ous co-morbid conditions.Kenia ents with extremes in mus amaury mass or diet.The renard a above are obtained fr om the National Kidney Disease Education Progr am(NKDEP) which additiona lly recommends that when the eGFR is used in patientswith ex tremes of body mass index for purposes of arabella g dosing, the eGFR should be multiplied by t he estimated BMI. [facility]] IRON, [id number] 13:54:01 Test Item Value Reference Range Interpretation Comments Iron (test code = 2498-4) 47 ug/dL 30-160 [facility]] CREATINE KINASE, [id number] 13:54:01 Test Item Value Reference Range Interpretation Comments Creatine Kinase (test code = 2157-6) 61 u/l 12-191 [facility]] C-REACTIVE [id number] 13:54:01 Test Item Value Reference Range Interpretation Comments CRP (test code = CRP) <2.9 <=2.9 [facility]] SED RATE BY MODIFIED [id number] 13:54:01 Test Item Value Reference Range Interpretation Comments SED RATE BY MODIFIED Cancel Reason: QNS SHAD (test code = SED RATE BY MODIFIED WESTERGREN) [facility]] [id number] 13:54:01 Test Item Value Reference Range Interpretation Comments Segmented Neutrophils; Above High 80.2 % 45.0-75.0 Threshold (test code = 50819-8) Monocytes (test code = 29583-1) 7.5 % 2.0-12.0 Lymphocytes; Below Low Threshold 12.1 % 20.0-40.0 (test code = 94791-3) Eosinophils (test code = 14349-0) 0.2 % 0.0-4.0 Basophils (test code = 706-2) 0.0 % 0.0-1.0 Segs-Bands # (test code = 7.9 {K/CMM} 1.5-8.1 74753-4) Lymphocytes # (test code = 1.2 {K/CMM} 1.0-5.5 19113-4) Monocytes # (test code = 86104-3) 0.7 {K/CMM} 0.0-0.8 Eosinophils # (test code = 0.0 {K/CMM} 0.0-0.5 28391-4) Basophils # (test code = 04383-8) 0.0 {K/CMM} 0.0-0.2 [facility]] CBC (INCLUDES DIFF/PLT)2018-08-23 13:54:01 Test Item Value Reference Range Interpretation Comments WBC (test code = 6690-2) 9.8 {K/CMM} 3.7-10.4 RBC; Below Low Threshold (test 3.54 {M/CMM} 4.20-5.40 code = 789-8) Hgb; Below Low Threshold (test 10.9 g/dl 12.0-16.0 code = 718-7) Hct; Below Low Threshold (test 34.5 % 36.0-48.0 code = 02976-4) MCV (test code = 787-2) 97.5 fL 80.0-98.0 MCH (test code = 785-6) 30.7 pg 27.0-31.0 MCHC; Below Low Threshold (test 31.5 g/dl 32.0-36.0 code = 786-4) RDW; Above High Threshold (test 17.5 % 11.5-14.5 code = 788-0) Platelet (test code = 21872-7) 257 {K/CMM} 133-450 Mean Platelet Volume (test code 9.7 fL 7.4-10.4 = 99438-8) [facility]] SJOGRENS ANTIBODIES (SS-A,SS-B)2018-08-23 13:54:01 Test Item Value Reference Range Interpretation Comments SS-A (Ro) Antibody (test code = 5351-2) <0.2 <=0.9 SS-b (La) Antibody (test code = 5353-8) <0.2 <=0.9 [facility]] VITAMIN B1, WHOLE [id number] 13:54:01 Test Item Value Reference Range Interpretation Comments Vitamin B1 109.8 66.5-200.0 This test was d eveloped and its Level (test nmol/L performance code = characteristics determined by Vitamin B1 [facility]. It has not been Level) cleared orappro katerine by the Food and Drug Administration. Performed At: [facility] [address] [place], [place] [id number] ra Felipe PINEDA Ph:[phone] [facility][] Vitamin E [id number] 13:54:01 Test Item Value Reference Range Interpretation Comments Alpha-Tocoph 17.3 mg/L 9.0-29.0 This test was d eveloped and its anna (test performance code = characteristics determined by Alpha-Tocoph [facility]. It has not been cleared anna) orapproved by [facility] Food and Drug Administration. Gamma-Tocoph 1.8 mg/L 0.5-4.9 This test was d eveloped and its anna (test performance code = characteristics determined by Gamma-Tocoph [facility]. It has not been cleared anna) orapproved by [facility] Food and Drug Administration. Reference intervals for a lpha and gamma-tocophero ldetermined from National Health and Nutrition ExaminationSurv , 7915-1359. Individuals wit h alpha-tocophero l levelsless than 5.0 mg/L are co nsidered vitamin E deficient.Per formed At: [facility] [id number] ra Felipe PINEDA Ph:[phone] [facility]] VITAMIN [id number] 13:54:01 Test Item Value Reference Range Interpretation Comments Vitamin B6 11.2 {UG/L} 2.0-32.8 This test was d eveloped and its Level (test performance code = characteristics determined by Vitamin B6 [facility]. It has not been Level) cleared orappro katerine by the Food and Drug Administration. Performed At: [email or web address] [id number] ra Felipe PINEDA Ph:[phone] [facility]] Zinc [id number] 13:54:01 Test Item Value Reference Range Interpretation Comments Zinc Level 64 ug/dL 56-134 This test was d eveloped and its (test code = performance Zinc Level) characteristics determined by [facility]. It has not been cleared orapproved by [facility] Food and Drug Administration. 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 [facility][H] Immunofixation Trxgagxwpxgtso0362-05-96 13:54:01 Test Item Value Reference Interpretation Comments Range Immunofixation SEE NOTES Diffusely sta ining Electrophoresis immunoreacti vity is present Pattern (test code in the Ig G, IgA, IgM, kappa, = Immunofixation andlambda l anes in a normal Electrophoresis polyclonal d istribution. No Pattern) monoclonalimmun oglobulins are detected. Immunofixation SEE NOTES The serum imm unofixation Electrophoresis electrophore sis demonstrates Interpretation polyclonal di stributionof (test code = immunoglobulins . No Immunofixation monoclonal im munoglobulins Electrophoresis are detected .The Interpretation) electronicme dical record has been reviewed f or relevant history. I have personallyrevie wed the test results and con cur with the resident's inte rpretation. CPT 04144-J CElectronic Signature Todd Lyons MD 08/27/18 14: 43 PM [facility]] METHYLMALONIC [id number] 13:54:01 Test Item Value Reference Interpretation Comments Range Methylmalonic 7915 nmol/L 0-378 Acid Quantitative (test code = Methylmalonic Acid Quantitative) U Org Acid Comment This test was d eveloped and Disclaimer ([place]) its perform ance (test code = U characteristi csdetermined by Org Acid [facility]. It has not been Disclaimer ([place])) cleared or approved by the Food and Drug Administration. Performed At: [facility] [place], [place] [id number] ra Felipe PINEDA Ph:[phone] e presence of metabolites in physiological fluids depends inpart on the clinical and di etary status of the individu al atthe time of specimen col lection. A non-diagnostic test resultdoes not rule out the possibility of an underlying metabolicdisord er. Special dietary regimen s and dietary supplementsmay obscure diagnostic find ings. This test may miss disorderscharac terized by minimal or inte rmittent metabolite excretion,espec ially if the patient is asym ptomatic at the time of kaushal plecollection. We utilize org anic solvent extraction and somemetabolites are poorly extracted by th is method. These include:h omogentistic acid, orotic ac id, oxalic acid, glycolic acid,glycerol and others. [facility][H] Paraneoplastic Autoantibody Evaluation 2018-08-23 13:54:01 Test Item Value Reference Interpretation Comments Range IRENE-1 (test code Negative <1:240 = IRENE-1) IRENE-2 (test code Negative <1:240 ---------ADDITIONA = IRENE-2) L INFORMATION---- --This test was developed and its perform ance characteristics determined by [facility] in a manner consistent with CLIArequirement s. This test has not been cl eared or approved bythe U.S. Food and Drug Administra tion. IRENE-3 (test code Negative <1:240 ---------ADDITIONA = IRENE-3) L INFORMATION---- --This test was developed and its perform ance characteristics determined by [facility] in a manner consistent with CLIArequirement s. This test has not been cl eared or approved bythe U.S. Food and Drug Administra tion. AGNA-1 (test code Negative <1:240 ---------ADDITIONA = AGNA-1) L INFORMATION---- --This test was developed and its perform ance characteristics determined by [facility] in a manner consistent with CLIArequirement s. This test has not been cl eared or approved bythe U.S. Food and Drug Administra tion. PLASTICS SCIENTIST-1 (test code = Negative <1:240 --------- ADDITIONA PLASTICS SCIENTIST-1) L INFORMATION---- --This test was developed and its perform ance characteristics determined by [facility] in a manner consistent with CLIArequirement s. This test has not been cl eared or approved bythe U.S. Food and Drug Administra tion. PLASTICS SCIENTIST-2 (test code = Negative <1:240 --------- ADDITIONA PLASTICS SCIENTIST-2) L INFORMATION---- --This test was developed and its perform ance characteristics determined by [facility] in a manner consistent with CLIArequirement s. This test has not been cl eared or approved bythe U.S. Food and Drug Administra tion. PLASTICS SCIENTIST-3 (test code = Negative <1:240 --------- ADDITIONA PLASTICS SCIENTIST-3) L INFORMATION---- --This test was developed and its perform ance characteristics determined by [facility] in a manner consistent with CLIArequirement s. This test has not been cl eared or approved bythe U.S. Food and Drug Administra tion. Amphiphysin Ab Negative <1:240 ------ADDITIONA (test code = L Amphiphysin Ab) INFORMATION- --This test was developed and its perform ance characteristics determined by [facility] in a manner consistent with CLIArequirement s. This test has not been cl eared or approved bythe U.S. Food and Drug Administra tion. CRMP-5 IgG (test Negative <1:240 --------ADDITIONA code = CRMP-5 IgG) L INFORMATION---- --This test was developed and its perform ance characteristics determined by [facility] in a manner consistent with CLIArequirement s. This test has not been cl eared or approved bythe U.S. Food and Drug Administra tion. Striated Muscle Ab Negative <1:120 --------- ADDITIONA (test code = L Striated Muscle INFORMATION- Ab) --This test was developed and its perform ance characteristics determined by [facility] in a manner consistent with CLIArequirement s. This test has not been cl eared or approved bythe U.S. Food and Drug Administra tion. Calcium Channel Ab 0.00 nmol/L <=0.02 --------- ADDITIONA P/Q-Type (test L code = Calcium INFORMATION-- Channel Ab --This test was developed P/Q-Type) and its perform ance characteristics determined by [facility] in a manner consistent with CLIArequirement s. This test has not been cl eared or approved bythe U.S. Food and Drug Administra tion. Diagnosis PNH 0.00 nmol/L <=0.03 -----ADDITIONA (test code = L Diagnosis PNH) INFORMATION-- --This test was developed and its perform ance characteristics determined by [facility] in a manner consistent with CLIArequirement s. This test has not been cl eared or approved bythe .S. Food and Drug Administra tion. ACHr Binding Ab 0.00 nmol/L <=0.02 -------ADDITIONA (test code = ACHr L Binding Ab) INFORMATION---- --This test was developed and its perform ance characteristics determined by [facility] in a manner consistent with CLIArequirement s. This test has not been cl eared or approved bythe U.S. Food and Drug Administra tion. AChR Ganglionic 0.00 nmol/L <=0.02 -------ADDITIONA Neuronal Ab (test L code = AChR INFORMATION---- Ganglionic --This test was developed Neuronal Ab) and its perform ance characteristics determined by [facility] in a manner consistent with CLIArequirement s. This test has not been cl eared or approved bythe U.S. Food and Drug Administra tion. Neuronal (V-G) 0.00 nmol/L <=0.02 ------ADDITIONA K+Channel Ab (test L code = Neuronal INFORMATION- (V-G) K+Channel --This test was developed Ab) and its perform ance characteristics determined by [facility] in a manner consistent with CLIArequirement s. This test has not been cl eared or approved bythe U.S. Food and Drug Administration. Performed At: [facility] [address] [place], [place] [id number] m G Ph:[phone] Paraneoplastic Ab Comment No informa tive Interp (test code autoantibo dies were detected = Paraneoplastic in theParan eoplastic Ab Interp) Evaluation. How ever, a negative result doesnot exclude neurolo gical autoimmunity wi th or withoutassociat ed neoplasia. Sensitivity and specificity ofantibody test ing are enhanced by haley ting both serum andCSF. Paraneoplastic None. ------ADDITIONA Reflex Added (test L code = INFORMATION---- Paraneoplastic --This test w as developed Reflex Added) and its perfor azucena characteristics determined by [facility] in a manner consistent with CLIArequirement s. This test has not been cl eared or approved bythe U.S. Food and Drug Administra tion. [facility]] [id number] 13:54:01 Test Item Value Reference Range Interpretation Comments Copper Level (test code Cancel Reason: Other = Copper Level) (see comments) [facility]iciansCARDIAC [id number] 15:30:45424Ovcjqfrh HermannCHEM HASCT5796-65-63 15:30:002.8[facility] HermannCHEM [id number] 15:30:002.3[facility] FwqknxfNGDQTGBYBFEU9455-17-44 15:30:008.1[facility] [place] AQSOVLIBNJOD5692-36-99 15:30:0045[facility] ArlchqgESELUDHIXBIN4813-80-89 15:30:00 8.2[facility]orial LnqhnbzKIRPQDMDFHCA3672-95-05 15:30:0029[facility] HermannELECTROLYTES 2018-01-16 15:30:22963Fdjqvdbt MxyqxjuIYUVUMCKHQSU6254-77-78 15:30:003.1[facility] NlrblgoKPHGCVGDQFGV8794-96-67 15:30:32480Sdfltckf TimclluHHYUTVYVGKWL3291-90-44 15:30:88338Btiyppbi ZqqhalgMKVAVCWLLLPX9575-79-69 15:30:001.14[facility]ar [id number] 15:30:0033[facility] ZxttgtkFFKRKTGUUL5754-31-09 15:30:00 Test Item Value Reference Range Interpretation Comments INR (test code = INR) 1.09 1 0.85-1.17 [facility] TqiuvsaOLLQEHYOIX6600-04-90 15:30:00 Test Item Value Reference Range Interpretation Comments PT (test code = PT) 14.1 s 12.0-14.7 [facility] TmudpvtIRYTQFXQUA1536-57-81 15:30:00 Test Item Value Reference Range Interpretation Comments PTT (test code = PTT) 25.6 s 22.9-35.8 [facility] TebmxpdINNHKYZZAX7010-13-38 15:30:61468Ozoytrql HermannHEMATOLOGY 2018-01-16 15:30:009.1[facility] ZehabjeSASYFJKFSO1134-95-71 15:30:0033.2[facility] BiqpyfsPIAWIYZDJL5983-63-31 15:30:0014.6[facility] MmzqiiaQTOTYGXEWO2061-36-73 15:30:006.5[facility] QyknxyeVQRIHXIYSV7995-53-69 15:30:003.98[facility] [place] LZSXTVHEEB7416-69-07 15:30:0012.3[facility] HjtbhulBLXMKDVHZW6268-23-96 15:30:00 92.9[facility] TzskwxpDSQDJAFMCK2846-32-86 15:30:0037.0[facility] HermannHEMATOLOGY 2018-01-16 15:30:00 Test Item Value Reference Range Interpretation Comments MCH (test code = MCH) 30.8 pg 27.0-31.0 [facility] KwrqbdxCKWSGILSRT3531-97-15 15:30:001.5[facility] HermannHEMATOLOGY 2018-01-16 15:30:0062.9[facility] SonktiaJBLCDMNNZU2772-36-32 15:30:0023.2[facility] RtwfsxeHFNTRBZUFE4956-75-91 15:30:004.1[facility] XmtxutiJBFGKIFIKO9051-94-70 15:30:000.8[facility] ApdzoioQIFPMKMDHK5307-02-90 15:30:000.5[facility] [place] JGVBFMEUPS3484-88-09 15:30:000.1[facility] GfwloevBWFZVFOBZT2588-50-13 15:30:00 12.0[facility] PnbvzctWIQVSISAUO9935-41-49 15:30:001.4[facility] HermannBLOOD BANK VCNAQSB5872-74-45 10:48:00Negative (06/26/14 5:48 AM)[facility] HermannCHEM PANEL 2014-06-26 10:48:002.0[facility] YnwsziuZTSSGPZJAHCI0777-89-60 10:48:0013.8 [facility] GrbmrfkXNEIATYCTWUA9239-26-49 10:48:0070[facility] HermannELECTROLYTES 2014-06-26 10:48:008.8[facility] SsdczsmNSTROPDOSXQQ6823-42-10 10:48:95748Rxtseicd AoqgwfgGAUSIEKXVULH2027-60-58 10:48:0026[facility] RxdyhdtTSBDJBFTMLDR2564-07-85 10:48:003.8[facility] YblzpgmWOGSUEOPBBIH3149-67-00 10:48:30828Sapdpjqs [place] MRZPVIURMHZA7161-78-80 10:48:000.8[facility] GuqasciAZWUFSYTQWIE0493-89-03 10:48:0016[facility] MowaybaDLLBQDIRFHWI0466-68-16 10:48:87356Zyobzmhr [place] JRNYGURGQQ6836-61-64 10:48:001.7[facility] AygufpiKXRAYTWDFW5351-93-27 10:48:000.5 [facility] BmqxmruTEBEENEQAE9977-62-48 10:48:0020.0[facility] HermannHEMATOLOGY 2014-06-26 10:48:0011.3[facility] AwrmtwcFQLHPAKARY9326-01-22 10:48:0066.5[facility] QiywfmsDXMYXLNYOF0498-94-59 10:48:000.1[facility] VevuwquOACCCATIDK1384-72-10 10:48:004.7[facility] AoauuwfTZSDUXFQNK3404-19-15 10:48:001.4[facility] [place] MAMDAFSOQU5487-99-03 10:48:000.8[facility] HpopwapYOMJIFHLEG9319-39-25 10:48:00 1.08[facility] RfgsjaiYRHXWYJGSN1023-32-51 10:48:00 Test Item Value Reference Range Interpretation Comments PT (test code = PT) 14.1 s 12.0-14.7 [facility] OoboclvEWQDWMQICR1352-26-68 10:48:00 Test Item Value Reference Range Interpretation Comments PTT (test code = PTT) 30.5 s 22.9-35.8 [facility] ZyxeoerOAXRUCCBNJ7120-50-89 10:48:009.1[facility] HermannHEMATOLOGY 2014-06-26 10:48:00 Test Item Value Reference Range Interpretation Comments MCH (test code = MCH) 29.5 pg 27.0-31.0 [facility] StdvwpjEPUOHZYRJY0450-86-88 10:48:0089.3[facility] HermannHEMATOLOGY 2014-06-26 10:48:65490Czqrzttd McleirnTEYWDEIFXE1146-32-03 10:48:0015.5[facility] RklkbtuZLQDYBSRWU6698-00-73 10:48:0033.0[facility] OnordjsFMSMEFSVXB5339-48-55 10:48:007.1[facility] QatfcjdDABWSNIWQZ9286-35-28 10:48:0012.7[facility] YETRJRJLYQ2338-11-54 10:48:004.30[facility] AqzzvpwCUFXFTPTXN2151-23-92 10:48:00 38.4[facility] VojgkjrUGONIH3677-01-03 10:48:006.12[facility] HermannLIPIDS 2014-06-26 10:48:0077[facility] PyyyiczGCADXT2093-08-92 10:48:0051[facility] [place] XIYZHH8790-73-17 10:48:0025[facility] XsvsfcdZKQJSG2627-97-04 10:48:46184Zuhpsuea LnlqoptLVCUMF4719-40-63 10:48:28994Snqvhkci Ceasar
[2019-10-07] MEDS ORDERED: ONDANSETRON 4 MG/2 ML VIAL ONE (19:57)
[2019-10-07] MEDS ORDERED: PANTOPRAZOLE 40 MG INJ ONE (19:57)
[2019-10-07] MEDS ORDERED: CEFTRIAXONE/SWI 1gm 1 GM/10 ML SYR ONE (19:58)
[2019-10-07] MEDS ORDERED: NA CHLORIDE 0.9% 1,000 ML ONE ×3 (19:58→22:38)
[2019-10-07 20:54] LABS: Absolute Lymphocytes (CBC) 1.6 K/uL (0.7-4.9); Basophils % 0.2 % (0-1.3); Hematocrit 36.8 % (36.0-45.0); Lymphocytes % 8.7 % (15.3-44.8); MPV 9.1 fL (7.6-11.3); RBC Red Blood Cell Count 4.27 M/uL (3.86-4.86)
[2019-10-07 21:00] LABS: Albumin 2.9 g/dL (3.4-5.0); Bilirubin Direct 0.2 mg/dL (0-0.2); Bilirubin Total 0.8 mg/dL (0.2-1.0); Magnesium 2.6 mg/dL (1.8-2.4); Potassium 4.2 mmol/L (3.5-5.1); Protein, Total 5.8 g/dL (6.4-8.2)
[2019-10-07 21:13] LABS: Troponin (Emerg Dept Use Only) 0.5 ng/mL (0.0-0.045)
[2019-10-07 21:16] LABS: Protime INR 0.95
--- NOTE | 2019-10-07 22:00 | EDPHYS ---
Physician Documentation [facility] Name: Dianne Juárez Age: 84 yrs Sex: Female : 1935 Arrival Date: 10/07/2019 Time: 19:08 Bed 4 Private MD: ED Physician Tor Rodriguez HPI: 10/06 19:44 This 84 yrs old Female presents to ER via Wheelchair with complaints of [facility] Abdominal Pain, Vomiting. 19:44 The patient presents to the emergency department with diarrhea, abdominal pain, of the [facility] epigastric area. Onset: The symptoms/episode began/occurred 1 day(s) ago. Possible causes: unknown. The symptoms are aggravated by nothing. The symptoms are alleviated by nothing. Associated signs and symptoms: Pertinent positives: abdominal pain, diarrhea. Severity of symptoms: At their worst the symptoms were moderate. The patient has not experienced similar symptoms in the past. Historical: - Allergies: 19:14 Sulfa (Sulfonamide Antibiotics); ll1 19:14 Adhesives; ll1 - Home Meds: 22:15 omeprazole 20 mg Oral TbEC as needed [Active]; Lasix 40 mg Oral tab 1 tab once daily jb4 [Active]; simvastatin 80 mg oral tab daily [Active]; losartan-hydrochlorothiazide 50-12.5 mg oral tab 1 tab once daily [Active]; glipizide 5 mg Oral tab 2 tabs once daily [Active]; metformin 1,000 mg oral tab 2 times per day [Active]; Lantus 100 unit/mL Sub-Q soln daily [Active]; aspirin 81 mg Oral chew 1 tab once daily [Active]; - PMHx: 19:14 Hypothyroidism; Diabetes - NIDDM; irregular heart beat; Hypertension; Hyperlipidemia; ll1 Atrial Fib; - PSHx: 19:14 BACK SURGERY; Cholecystectomy; Knee surgery; Carpal Tunnel Repair; Lithotripsy; ll1 - Immunization history:: Flu vaccine is up to date. - Social history:: Smoking status: Patient denies any tobacco usage or history of. Patient/guardian denies using alcohol, street drugs, tobacco products. - Family history:: not pertinent. ROS: 19:44 Eyes: Negative for injury, pain, redness, and discharge, ENT: Negative for injury, jesus manuel pain, and discharge, Neck: Negative for injury, pain, and swelling, Cardiovascular: Negative for chest pain, palpitations, and edema, Respiratory: Negative for shortness of breath, cough, wheezing, and pleuritic chest pain, Back: Negative for injury and pain, : Negative for injury, bleeding, discharge, and swelling, MS/Extremity: Negative for injury and deformity, Skin: Negative for injury, rash, and discoloration, Neuro: Negative for headache, weakness, numbness, tingling, and seizure, Psych: Negative for depression, anxiety, suicide ideation, homicidal ideation, and hallucinations, Allergy/Immunology: Negative for hives, rash, and allergies, Endocrine: Negative for neck swelling, polydipsia, polyuria, polyphagia, and marked weight changes, Hematologic/Lymphatic: Negative for swollen nodes, abnormal bleeding, and unusual bruising. 19:44 Constitutional: Positive for fatigue, malaise. 19:44 Abdomen/GI: Positive for abdominal pain, diarrhea, abdominal distension. Exam: 19:44 Constitutional: This is a well developed, well nourished patient who is awake, alert, jesus manuel and in no acute distress. Head/Face: Normocephalic, atraumatic. Eyes: Pupils equal round and reactive to light, extra-ocular motions intact. Lids and lashes normal. Conjunctiva and sclera are non-icteric and not injected. Cornea within normal limits. Periorbital areas with no swelling, redness, or edema. ENT: Nares patent. No nasal discharge, no septal abnormalities noted. Tympanic membranes are normal and external auditory canals are clear. Oropharynx with no redness, swelling, or masses, exudates, or evidence of obstruction, uvula midline. Mucous membranes moist. Neck: Trachea midline, no thyromegaly or masses palpated, and no cervical lymphadenopathy. Supple, full range of motion without nuchal rigidity, or vertebral point tenderness. No Meningismus. Chest/axilla: Normal chest wall appearance and motion. Nontender with no deformity. No lesions are appreciated. Cardiovascular: Regular rate and rhythm with a normal S1 and S2. No gallops, murmurs, or rubs. Normal PMI, no JVD. No pulse deficits. Respiratory: Lungs have equal breath sounds bilaterally, clear to auscultation and percussion. No rales, rhonchi or wheezes noted. No increased work of breathing, no retractions or nasal flaring. Back: No spinal tenderness. No costovertebral tenderness. Full range of motion. Female : Normal external genitalia. Skin: Warm, dry with normal turgor. Normal color with no rashes, no lesions, and no evidence of cellulitis. MS/ Extremity: Pulses equal, no cyanosis. Neurovascular intact. Full, normal range of motion. Neuro: Awake and alert, GCS 15, oriented to person, place, time, and situation. Cranial nerves II-XII grossly intact. Motor strength 5/5 in all extremities. Sensory grossly intact. Cerebellar exam normal. Normal gait. Psych: Awake, alert, with orientation to person, place and time. Behavior, mood, and affect are within normal limits. 19:44 Abdomen/GI: Inspection: distension, Bowel sounds: normal, Palpation: mild abdominal tenderness, in all quadrants, Rectal exam: rectal tone normal, Stool: guaiac positive, hemorrhoid(s), are not appreciated, mass, is not appreciated, swelling, is not appreciated, tenderness, is not appreciated, fecal impaction, is not appreciated, no melena, trace guaiac positive, Liver: no appreciated palpable abnormalities, Hernia: not appreciated. 20:54 ECG was reviewed by the Attending Physician. jesus manuel Vital Signs: 19:15 Pulse 90; Resp 18; Temp 98.5; Pulse Ox 99% ; Weight 95.25 kg; Pain 9/10; ll1 19:17 BP 60 / 38; ll1 21:00 BP 113 / 66; Pulse 81; Resp 18; Pulse Ox 95% on R/A; jb4 22:00 BP 86 / 52; Pulse 79; Resp 19; Pulse Ox 96% on R/A; jb4 22:30 BP 107 / 67; Pulse 86; Resp 18; Pulse Ox 97% on R/A; Pain 0/10; jb4 23:30 BP 91 / 66; Pulse 80; Resp 21; Temp 98.5(O); Pulse Ox 96% on R/A; jb4 0811 00:00 BP 90 / 66; Pulse 83; Resp 20; Pulse Ox 95% on R/A; jb4 01:00 BP 99 / 60; Pulse 99; Resp 18; Pulse Ox 94% on R/A; jb4 02:00 BP 100 / 50 (man/); Pulse 95; Resp 18; Pulse Ox 96% on R/A; jb4 Procedures: 10/06 20:12 Peripheral line: by aseptic technique a peripheral line was placed in the left external [facility] jugular vein. MDM: 19:22 Patient medically screened. [facility] 19:47 Data reviewed: vital signs, nurses notes, lab test result(s), EKG, radiologic studies, [facility] CT scan, plain films. 20:53 Differential diagnosis: Nonspecific abd pain, gastritis, pancreatitis, diverticulitis, jesus manuel viral gastroenteritis, gastroenteritis. Data interpreted: teletypesetter monitor: Pulse oximetry:. Test interpretation: by ED physician or midlevel provider: ECG, plain radiologic studies. Counseling: I had a detailed discussion with the patient and/or guardian regarding: the historical points, exam findings, and any diagnostic results supporting the discharge/admit diagnosis, lab results, radiology results, the need for further work-up and treatment in the hospital. 21:54 ED course: left side pna, hypotension, weakness,arf. [facility] 10/06 19:29 Order name: Basic Metabolic Panel [facility] 10/06 19:29 Order name: CBC with Diff [facility] 10/06 19:29 Order name: LFT's [facility] 10/06 19:29 Order name: Magnesium [facility] 10/06 19:29 Order name: NT PRO-BNP [facility] 10/06 19:29 Order name: PT-INR [facility] 10/06 19:29 Order name: Troponin (emerg Dept Use Only) [facility] 10/06 19:29 Order name: Lipase [facility] 10/06 19:29 Order name: Urine Culture [facility] 10/06 19:43 Order name: Lactate [facility] 10/06 19:43 Order name: Procalcitonin [facility] 10/06 19:43 Order name: Stool Culture [facility] 10/06 19:43 Order name: Fecal Leukocyte Stain [facility] 10/06 19:43 Order name: Blood Culture Adult (2) [facility] 10/06 19:43 Order name: Type And Screen [facility] 10/06 19:43 Order name: COVID-19 [facility] 10/06 21:02 Order name: Lactate; Complete Time: 21:32 EDMS 10/06 21:02 Order name: CBC with Automated Diff; Complete Time: 21:32 EDMS 10/06 21:13 Order name: Basic Metabolic Panel; Complete Time: 21:32 EDMS 10/06 21:13 Order name: Liver (Hepatic) Function; Complete Time: 21:32 EDMS 10/06 21:13 Order name: Troponin (Emerg Dept Use Only); Complete Time: 21:32 EDMS 10/06 21:13 Order name: NT PRO-BNP; Complete Time: 21:32 EDMS 10/06 21:13 Order name: Magnesium; Complete Time: 21:32 EDMS 10/06 21:13 Order name: Lipase; Complete Time: 21:32 EDMS 10/06 21:18 Order name: Protime (+INR); Complete Time: 21:32 EDMS 10/06 21:37 Order name: Urine Dipstick--Ancillary (enter results) tt3 10/06 21:46 Order name: Procalcitonin; Complete Time: 21:51 EDMS 10/06 21:47 Order name: Type and Screen; Complete Time: 21:51 EDMS 10/06 23:48 Order name: Lactate Sepsis 2 HR Follow-up; Complete Time: 01:58 EDMS 10/07 00:46 Order name: [facility] 10/06 19:29 Order name: XRAY Chest (1 view) [facility] 10/06 19:29 Order name: EKG; Complete Time: 10:48 [facility] 10/06 19:29 Order name: Cardiac monitoring; Complete Time: 20:57 [facility] 10/06 19:29 Order name: EKG - Nurse/Tech; Complete Time: 20:57 [facility] 10/06 19:29 Order name: IV Saline Lock; Complete Time: 20:57 [facility] 10/06 19:29 Order name: Labs collected and sent; Complete Time: 20:57 [facility] 10/06 19:29 Order name: O2 Per Protocol; Complete Time: 20:57 [facility] 10/06 19:29 Order name: O2 Sat Monitoring; Complete Time: 20:57 [facility] 10/06 19:29 Order name: Urine Dipstick-Ancillary (obtain specimen); Complete Time: 22:18 [facility] 10/06 19:29 Order name: CT Abd/Pelvis - IV Contrast Only [facility] 10/06 19:29 Order name: IV Saline Lock - Large Bore; Complete Time: 20:56 [facility] 10/06 19:43 Order name: [place]; Complete Time: 22:18 [facility] 10/06 22:57 Order name: INCENTIVE SPIROMETRY [facility] 10/07 01:54 Order name: SARS-COV-2 RT PCR; Complete Time: 01:58 EDMS EC:54 Rate is 90 beats/min. Rhythm is irregularly irregular. QRS [place] is Normal. MO interval jesus manuel is normal. QRS interval is normal. QT interval is normal. No Q waves. T waves are Normal. No ST changes noted. Clinical impression: Atrial Fibrillation and No evidence of ischemia. Interpreted by me. Reviewed by me. Administered Medications: 19:43 CANCELLED (Duplicate Order): Pepcid 20 mg IVP once jesus manuel 20:15 Drug: NS 0.9% 1000 ml Route: IV; Rate: 1 bolus; Site: left jugular; jb4 20:35 Follow up: Moved to [facility] due to PT comfort. jb4 21:00 Follow up: Response: No adverse reaction; IV Status: Completed infusion; IV Intake: jb4 1000ml 20:35 Drug: Zofran (Ondansetron) 4 mg Route: IVP; Site: right antecubital; jb4 21:00 Follow up: Response: No adverse reaction jb4 20:40 Drug: ProTONIX 40 mg Route: IVP; Site: right antecubital; jb4 21:00 Follow up: Response: No adverse reaction [facility] 20:50 Drug: Rocephin 1 grams Route: IV; Rate: per protocol; Site: right antecubital; jb4 20:53 Follow up: Response: No adverse reaction; IV Status: Completed infusion; IV Intake: 10lucc9 21:15 Drug: NS 0.9% 1000 ml Route: IV; Rate: 125 ml/hr; Site: right antecubital; 4 21:45 Follow up: Response: No adverse reaction; Rate changed to 75ml per hour per Dr. nereida Rodriguez. 22:45 Follow up: Infusion increased to [address] Rodriguez [facility] 10/07 02:22 Follow up: IV Status: Infusion continued upon admission [facility] 10/06 22:22 Not Given (Duplicate Order): Zosyn 3.375 grams IVPB once over 60 mins; (mix in NS 100 jesus manuel mL) 22:45 Drug: Zithromax 500 mg Route: IVPB; Infused Over: 1 hrs; Site: right antecubital; [facility] 23:45 Follow up: Response: No adverse reaction; IV Status: Completed infusion; IV Intake: jb4 250ml 22:45 Drug: NS 0.9% 1000 ml Route: IV; Rate: 1 bolus; Site: right antecubital; [facility] 10/07 00:00 Follow up: Response: No adverse reaction; IV Status: Completed infusion; IV Intake: jb4 1000ml 00:00 Drug: Zofran (Ondansetron) 4 mg Route: IVP; Site: right antecubital; jb4 00:30 Follow up: Response: No adverse reaction jb4 00:02 Drug: fentaNYL (PF) 25 mcg {Note: Rass score 0.} Route: IVP; Site: right antecubital; 4 01:00 Follow up: Response: No adverse reaction; Pain is unchanged, physician notified; RASS: [facility] Alert and Calm (0) 02:15 Drug: Tylenol 650 mg Route: PO; jb4 02:31 Follow up: Response: No adverse reaction [facility] Disposition: 10/07/19 21:59 Hospitalization ordered by Louie Boyce for Inpatient Admission. Preliminary diagnosis are Pneumonia due to other specified bacteria - covid negative, Severe sepsis without septic shock, Unspecified kidney failure - acute on chronic, Elevated white blood cell count, Type 2 diabetes mellitus, Gastrointestinal hemorrhage, unspecified - stable, Vomiting, Diarrhea, unspecified, Atelectasis, Pleural effusion in conditions classified elsewhere - small left, Atrial fibrillation and flutter. - Bed requested for Telemetry/MedSurg (Inpatient). - Status is Inpatient Admission. [facility] - Condition is Fair. - Problem is new. - Symptoms have improved. Signatures: Dispatcher [employer] EDMS Tor Rodriguez MD MD cha Garcia, Cindy, RN RN mUang Ernst RN RN jb Mayank Krueger RN RN ll1 Corrections: (The following items were deleted from the chart) 10/06 19:43 19:29 Pepcid 20 mg IVP once ordered. [facility] 22:58 21:59 Hospitalization Ordered by Louie Boyce DO for Inpatient Admission. Preliminary [facility] diagnosis is Pneumonia due to other specified bacteria; Severe sepsis without septic shock; Unspecified kidney failure - acute on chronic; Elevated white blood cell count; Type 2 diabetes mellitus; Gastrointestinal hemorrhage, unspecified - stable; Vomiting; Diarrhea, unspecified. Bed requested for Telemetry/MedSurg (Inpatient). Status is Inpatient Admission. Condition is Fair. Problem is new. Symptoms have improved. [facility] 10/07 01:35 10/06 22:58 10/07/2019 21:59 Hospitalization Ordered by LouieCosme FOREMAN for Inpatient jesus manuel Admission. Preliminary diagnosis is Pneumonia due to other specified bacteria; Severe sepsis without septic shock; Unspecified kidney failure - acute on chronic; Elevated white blood cell count; Type 2 diabetes mellitus; Gastrointestinal hemorrhage, unspecified - stable; Vomiting; Diarrhea, unspecified; Atelectasis; Pleural effusion in conditions classified elsewhere - small left. Bed requested for Telemetry/MedSurg (Inpatient). Status is Inpatient Admission. Condition is Fair. Problem is new. Symptoms have improved. jesus manuel 10/07 01:56 01:35 10/07/2019 21:59 Hospitalization Ordered by LouieCosme FOREMAN for Inpatient cg Admission. Preliminary diagnosis is Pneumonia due to other specified bacteria; Severe sepsis without septic shock; Unspecified kidney failure - acute on chronic; Elevated white blood cell count; Type 2 diabetes mellitus; Gastrointestinal hemorrhage, unspecified - stable; Vomiting; Diarrhea, unspecified; Atelectasis; Pleural effusion in conditions classified elsewhere - small left; Atrial fibrillation and flutter. Bed requested for Telemetry/MedSurg (Inpatient). Status is Inpatient Admission. Condition is Fair. Problem is new. Symptoms have improved. jesus manuel 01:58 01:56 10/07/2019 21:59 Hospitalization Ordered by Louie Boyce DO for Inpatient jesus manuel Admission. Preliminary diagnosis is Pneumonia due to other specified bacteria; Severe sepsis without septic shock; Unspecified kidney failure - acute on chronic; Elevated white blood cell count; Type 2 diabetes mellitus; Gastrointestinal hemorrhage, unspecified - stable; Vomiting; Diarrhea, unspecified; Atelectasis; Pleural effusion in conditions classified elsewhere - small left; Atrial fibrillation and flutter. Bed requested for Telemetry/MedSurg (Inpatient). Status is Inpatient Admission. Condition is Fair. Problem is new. Symptoms have improved. cg 02:38 01:58 10/07/2019 21:59 Hospitalization Ordered by Louie Boyce DO for Inpatient jb4 Admission. Preliminary diagnosis is Pneumonia due to other specified bacteria - covid negative; Severe sepsis without septic shock; Unspecified kidney failure - acute on chronic; Elevated white blood cell count; Type 2 diabetes mellitus; Gastrointestinal hemorrhage, unspecified - stable; Vomiting; Diarrhea, unspecified; Atelectasis; Pleural effusion in conditions classified elsewhere - small left; Atrial fibrillation and flutter. Bed requested for Telemetry/MedSurg (Inpatient). Status is Inpatient Admission. Condition is Fair. Problem is new. Symptoms have improved. jesus manuel
--- NOTE | 2019-10-07 22:00 | ER ---
Nurse's Notes [facility] Name: Dianne Juárez Age: 84 yrs Sex: Female : 1935 Arrival Date: 10/07/2019 Time: 19:08 Bed 4 Private MD: Diagnosis: Pneumonia due to other specified bacteria-covid negative;Severe sepsis without septic shock;Unspecified kidney failure-acute on chronic;Elevated white blood cell count;Type 2 diabetes mellitus;Gastrointestinal hemorrhage, unspecified-stable;Vomiting;Diarrhea, unspecified;Atelectasis;Pleural effusion in conditions classified elsewhere-small left;Atrial fibrillation and flutter Presentation: 10/06 19:15 Chief complaint: Patient states: N/V/D for 1 day. States she is out of famotidine for ll1 her gastritis. No fever. Slight cough started today. Coronavirus screen: Client denies travel out of the [place] in the last 14 days. cough unrelated to allergies, diarrhea, fatigue, headache, nausea, vomiting. Client presents with at least one sign or symptom that may indicate coronavirus-19. Standard/surgical mask placed on the client. Ebola Screen: Patient denies travel to an Ebola-affected area in the 21 days before illness onset. Initial Sepsis Screen: Does the patient meet any 2 criteria? No. Patient's initial sepsis screen is negative. Risk Assessment: Do you want to hurt yourself or someone else? Patient reports no desire to harm self or others. Onset of symptoms was October 07, 2019. 19:15 Method Of Arrival: Wheelchair ll1 19:15 Acuity: DOMINIQUE 2 ll1 Historical: - Allergies: 19:14 Sulfa (Sulfonamide Antibiotics); ll1 19:14 Adhesives; ll1 - Home Meds: 22:15 omeprazole 20 mg Oral TbEC as needed [Active]; Lasix 40 mg Oral tab 1 tab once daily jb4 [Active]; simvastatin 80 mg oral tab daily [Active]; losartan-hydrochlorothiazide 50-12.5 mg oral tab 1 tab once daily [Active]; glipizide 5 mg Oral tab 2 tabs once daily [Active]; metformin 1,000 mg oral tab 2 times per day [Active]; Lantus 100 unit/mL Sub-Q soln daily [Active]; aspirin 81 mg Oral chew 1 tab once daily [Active]; - PMHx: 19:14 Hypothyroidism; Diabetes - NIDDM; irregular heart beat; Hypertension; Hyperlipidemia; ll1 Atrial Fib; - PSHx: 19:14 BACK SURGERY; Cholecystectomy; Knee surgery; Carpal Tunnel Repair; Lithotripsy; ll1 - Immunization history:: Flu vaccine is up to date. - Social history:: Smoking status: Patient denies any tobacco usage or history of. Patient/guardian denies using alcohol, street drugs, tobacco products. - Family history:: not pertinent. Screenin:15 Abuse screen: Denies threats or abuse. Nutritional screening: No deficits noted. jb4 Tuberculosis screening: No symptoms or risk factors identified. Fall Risk IV access (20 points). Mental Status- Oriented to own ability (0 pts). Total Walter Fall Scale indicates No Risk (0-24 pts). Assessment: 20:15 General: Appears in no apparent distress. uncomfortable, Behavior is calm, cooperative, jb4 appropriate for age. Pain: Complains of pain in back Pain currently is 9 out of 10 on a pain scale. Neuro: Level of Consciousness is awake, alert, obeys commands, Oriented to person, place, time, situation. Cardiovascular: Patient's skin is warm and dry. Respiratory: Reports cough that is productive, Airway is patent Respiratory effort is even, unlabored, Respiratory pattern is regular, symmetrical. GI: Abdomen is non-distended, obese, Bowel sounds present X 4 quads. Abd is soft and non tender X 4 quads. Reports diarrhea, nausea, vomiting. : No signs and/or symptoms were reported regarding the genitourinary system. EENT: No signs and/or symptoms were reported regarding the EENT system. Derm: Skin is intact, Skin is pink, warm \T\ dry. Musculoskeletal: Circulation, motion, and sensation intact. Range of motion: intact in all extremities. 21:15 Reassessment: No changes from previously documented assessment. Patient and/or family jb4 updated on plan of care and expected duration. Pain level reassessed. Patient is alert, oriented x 3, equal unlabored respirations, skin warm/dry/pink. 22:15 Reassessment: Patient and/or family updated on plan of care and expected duration. Pain jb4 level reassessed. Patient is alert, oriented x 3, equal unlabored respirations, skin warm/dry/pink. Pt is resting comfortably in bed. No s/s of pain or distress noted. Daughter remains at the bedside. Medication list retrieved from daughter. 22:56 Reassessment: Patient and/or family updated on plan of care and expected duration. Pain jb4 level reassessed. Patient is alert, oriented x 3, equal unlabored respirations, skin warm/dry/pink. Hospitalist at the bedside updating patient and family on plan of care. Crackles noted to the Left lobes. right Lobes CTA, Hospitalist notified. 23:50 Reassessment: Patient and/or family updated on plan of care and expected duration. Pain jb4 level reassessed. Patient is alert, oriented x 3, equal unlabored respirations, skin warm/dry/pink. PT reports pain due to sciatica. Rates pain at 8/10. Provider notified. See MAR for orders. 10/07 01:56 Reassessment: covid negative called by alana. ED provider aware. rr5 Vital Signs: 10/06 19:15 Pulse 90; Resp 18; Temp 98.5; Pulse Ox 99% ; Weight 95.25 kg; Pain 9/10; ll1 19:17 BP 60 / 38; ll1 21:00 BP 113 / 66; Pulse 81; Resp 18; Pulse Ox 95% on R/A; jb4 22:00 BP 86 / 52; Pulse 79; Resp 19; Pulse Ox 96% on R/A; jb4 22:30 BP 107 / 67; Pulse 86; Resp 18; Pulse Ox 97% on R/A; Pain 0/10; jb4 23:30 BP 91 / 66; Pulse 80; Resp 21; Temp 98.5(O); Pulse Ox 96% on R/A; jb4 10/07 00:00 BP 90 / 66; Pulse 83; Resp 20; Pulse Ox 95% on R/A; jb4 01:00 BP 99 / 60; Pulse 99; Resp 18; Pulse Ox 94% on R/A; jb4 02:00 BP 100 / 50 (man/); Pulse 95; Resp 18; Pulse Ox 96% on R/A; jb4 ED Course: 10/06 19:08 Patient arrived in ED. cl3 19:17 Triage completed. ll1 19:17 Arm band placed on Patient placed in an exam room, on a stretcher. ll1 19:22 Tor Rodriguez MD is Attending Physician. [facility] 19:53 Umang Ernst, TIGRE is Primary Nurse. jb4 20:15 Patient has correct armband on for positive identification. Placed in gown. Bed in low jb4 position. Call light in reach. Side rails up X 1. breastfeeding program coordinator on. Pulse ox on. NIBP on. 20:15 Initial lab(s) drawn, by ED staff, sent to lab. Inserted saline lock: 18 gauge in left jb4 EJ, using aseptic technique. ,using aseptic technique. Started by Dr. Rodriguez Blood collected. 20:35 First set of blood cultures drawn by me, EKG done, by ED staff, reviewed by Tor Rodriguez MD. Inserted saline lock: 18 gauge in right antecubital area, using aseptic technique. Blood collected. 20:50 Second set of blood cultures drawn by me. jb4 21:15 Urine collected: Meadows catheter specimen, clear, be colored, Amount Returned: 100mL. jb4 21:57 Louie Boyce DO is Hospitalizing Provider. [facility] 10/07 02:30 No provider procedures requiring assistance completed. Patient admitted, IV remains in jb4 place. Administered Medications: 10/06 19:43 CANCELLED (Duplicate Order): Pepcid 20 mg IVP once [facility] 20:15 Drug: NS 0.9% 1000 ml Route: IV; Rate: 1 bolus; Site: left jugular; jb4 20:35 Follow up: Moved to [facility] due to PT comfort. jb4 21:00 Follow up: Response: No adverse reaction; IV Status: Completed infusion; IV Intake: jb4 1000ml 20:35 Drug: Zofran (Ondansetron) 4 mg Route: IVP; Site: right antecubital; jb4 21:00 Follow up: Response: No adverse reaction jb4 20:40 Drug: ProTONIX 40 mg Route: IVP; Site: right antecubital; jb4 21:00 Follow up: Response: No adverse reaction jb4 20:50 Drug: Rocephin 1 grams Route: IV; Rate: per protocol; Site: right antecubital; jb4 20:53 Follow up: Response: No adverse reaction; IV Status: Completed infusion; IV Intake: [id number] 21:15 Drug: NS 0.9% 1000 ml Route: IV; Rate: 125 ml/hr; Site: right antecubital; 4 21:45 Follow up: Response: No adverse reaction; Rate changed to 75ml per hour per Dr. nereida Rodriguez. 22:45 Follow up: Infusion increased to [address] Rodriguez [facility] 10/07 02:22 Follow up: IV Status: Infusion continued upon admission [facility] 10/06 22:22 Not Given (Duplicate Order): Zosyn 3.375 grams IVPB once over 60 mins; (mix in NS 100 jesus manuel mL) 22:45 Drug: Zithromax 500 mg Route: IVPB; Infused Over: 1 hrs; Site: right antecubital; jb4 23:45 Follow up: Response: No adverse reaction; IV Status: Completed infusion; IV Intake: jb4 250ml 22:45 Drug: NS 0.9% 1000 ml Route: IV; Rate: 1 bolus; Site: right antecubital; [facility] 10/07 00:00 Follow up: Response: No adverse reaction; IV Status: Completed infusion; IV Intake: jb4 1000ml 00:00 Drug: Zofran (Ondansetron) 4 mg Route: IVP; Site: right antecubital; 4 00:30 Follow up: Response: No adverse reaction jb4 00:02 Drug: fentaNYL (PF) 25 mcg {Note: Rass score 0.} Route: IVP; Site: right antecubital; jb4 01:00 Follow up: Response: No adverse reaction; Pain is unchanged, physician notified; RASS: jb4 Alert and Calm (0) 02:15 Drug: Tylenol 650 mg Route: PO; jb4 02:31 Follow up: Response: No adverse reaction jb4 Intake: 10/06 20:53 IV: 10ml; Total: 10ml. jb4 21:00 IV: 1000ml; Total: 1010ml. jb4 23:45 IV: 250ml; Total: 1260ml. [facility] 10/07 00:00 IV: 1000ml; Total: 2260ml. jb4 Outcome: 10/06 21:59 Decision to Hospitalize by Provider. [facility] 10/07 02:30 Admitted to Med/surg accompanied by ga, via stretcher, room 214, with chart, Report jb4 called to TIGRE Koch Condition: stable Discharge instructions given to patient, family, Instructed on the need for admit, Demonstrated understanding of instructions. 02:38 Patient left the ED. jb4 Signatures: Tor Rodriguez MD MD cha Bryson, James RN RN jb4 Christian Orlando, RN RN rr5 Jena Krueger cl3 Mayank Krueger, TIGRE RN ll1 Corrections: (The following items were deleted from the chart) 10/06 19:21 19:15 Acuity: DOMINIQUE 3 ll1 ll1 10/07 02:30 02:00 BP 100 / 50; Pulse 95bpm; Resp 18bpm; Pulse Ox 96% RA; jb4 jb4
[2019-10-07] MEDS ORDERED: AZITHROMYCIN 500 MG INJ IVPB ONE (22:37)
[2019-10-07] MEDS ORDERED: NA CHLORIDE 0.9% 250 ML ONE (22:37)
--- NOTE | 2019-10-07 23:54 | P.HP ---
Certification for Inpatient With expected LOS: >2 Midnights Patient will require the following post-hospital care: None Practitioner: I am a practitioner with admitting privileges, knowledge of patient current condition, hospital course, and medical plan of care. Services: Services provided to patient in accordance with Admission requirements found in Title 42 Section 412.3 of the Code of Federal Regulations <Sulaiman Daley - Last Filed: 10/07/19 23:48> Patient History Date of Service: 10/07/19 Reason for admission: NSTEMI/sepsis/pneumonia History of Present Illness: 84-year-old female with past medical history of diabetes, hypothyroidism, hypertension, hyperlipidemia, atrial fibrillation not currently on anticoagulation brought to the emergency room with complaints of abdominal pain, nausea vomiting and diarrhea. Patient is [place]-speaking only. Patient states that she has had worsening abdominal discomfort in the epigastric area of the stomach. States that she ran out of her antacid medication for several weeks and feels like her gastritis has worsened since. States she had 2 episodes of nausea/vomiting and 2 episodes of diarrhea that has since resolve. In the emergency room patient is stable. She is alert and oriented x3. She is in no distress. Daughter is bedside. Patient states that she describes her abdominal pain as moderate pain traveling up into the esophagus consistent with her gastritis she has had in the past. Chest x-ray shows a left lung pneumonia. CT abdomen pelvis with results pending. Patient is not having any russo symptoms. Patient's room air saturations are 99%. Emergency room lab work shows an elevated white cell count of 17.8 K, a creatinine of 1.5 with a hematocrit of 33, a procalcitonin of 4.17, lactic acid of 2.3 and an elevated troponin of 0.5 with a pro BNP of 3427. Patient denies chest pain, dyspnea on exertion, orthopnea or chest pressure. Denies syncope or lightheadedness. Patient states she had 2 episodes of diarrhea. Fecal occult was positive. Patient denies any blood in stool or active bleeding. She is only on aspirin as anticoagulation for chronic atrial fibrillation. Prior anticoagulation was discontinued. Patient will be admitted and further evaluated. Home medications list reviewed: No - Past Medical/Surgical History Has patient received pneumonia vaccine in the past: Yes Diabetic: Yes -: Diabetes -: HTN -: Hypothyroidism -: high cholesterol -: Afib -: Hypothyroidism -: Hyperlipidemia -: Atrial Fibrillation -: Cholecystectomy -: Back surgery -: Left Knee Replacement -: Kidney Stone Removal -: Cataracts sx -: heart valve surgery Psychosocial/ Personal History: Lives at home with daughter - Family History Mother -: Hypertension, Diabetes, Cancer - Social History Smoking Status: Never smoker Alcohol use: No CD- Drugs: No Caffeine use: Yes Place of Residence: Home <Sulaiman Daley - Last Filed: 10/07/19 23:48> Date of Service: 10/15/19 <Louie Boyce - Last Filed: 10/15/19 17:36> Allergies Sulfa (Sulfonamide Antibiotics) Allergy (Verified 07/19/18 19:40) Rash adhesive tape Adverse Reaction (Verified 07/19/18 19:40) Rash Home Medications: Aspirin [Aspirin EC 81 MG] 81 mg PO DAILY 04/09/18 Insulin Aspart (Niacinamide) [Fiasp 100 Unit/ml Flextouch] 5 unit SQ TID 10/09/19 Insulin Degludec [Tresiba Flextouch U-100] 15 unit SQ DAILY #1 librado 10/09/19 Levothyroxine Sodium [Synthroid] 125 mcg PO DAILY 10/09/19 Metoprolol Tartrate 25 mg PO BID #60 10/09/19 Mirabegron [Myrbetriq] 1 tab PO DAILY 10/09/19 PARoxetine HCL [Paxil*] 10 mg PO DAILY 10/09/19 Rosuvastatin [Crestor*] 1 tab PO DAILY 10/09/19 Ciprofloxacin HCl [Cipro] 250 mg PO BID #14 tablet 10/12/19 Docusate [Colace Cap*] 100 mg PO DAILY #30 cap 10/12/19 Lactobacillus Acidophilus [Acidophilus Lactobacilli] 1 each PO BID #30 capsule 10/12/19 Lactulose [Cephulac*] 30 ml PO BID PRN #1 bottle 10/12/19 metroNIDAZOLE [Flagyl] 500 mg PO Q8H #21 tablet 10/12/19 Review of Systems General: As per HPI Eyes: Unremarkable ENT: Unremarkable Respiratory: Unremarkable Cardiovascular: Unremarkable Gastrointestinal: Nausea, Vomiting, Abdominal Pain, Diarrhea Genitourinary: Unremarkable Musculoskeletal: Unremarkable Integumentary: Unremarkable Neurological: Unremarkable <Sulaiman Daley - Last Filed: 10/07/19 23:48> Physical Examination - Vital Signs Temperature: 98.5 F Blood Pressure: 60/38 Pulse: 90 Respirations: 18 Pulse Ox (%): 99 (RA) - Physical Exam General: Alert, In no apparent distress, Oriented x3 HEENT: Atraumatic, Normocephalic, PERRLA Neck: Supple, No Thyromegaly, Other (Trachea midline) Respiratory: Diminished, Crackles/rales (Left lower lung) Cardiovascular: No edema, Normal pulses, Regular rate/rhythm Capillary refill: <2 Seconds Gastrointestinal: Normal bowel sounds, Soft and benign, Non-distended Musculoskeletal: No clubbing, No swelling, No contractures Integumentary: No rashes, No breakdown, No significant lesion Neurological: Normal gait, Normal speech, Normal strength at 5/5 x4 extr, Normal tone - Studies Laboratory Data (last 24 hrs) 10/07/19 20:15: PT 11.2, INR 0.95 10/07/19 20:15: WBC 17.8 H, Hgb 12.2, Hct 36.8, Plt Count 116 L 10/07/19 20:15: Sodium 139, Potassium 4.2, BUN 44 H, Creatinine 1.51 H, Glucose 157 H, Magnesium 2.6 H, Total Bilirubin 0.8, AST 47 H, ALT 89 H, Alkaline Phosphatase 100, Lipase 83 <Sulaiman Daley - Last Filed: 10/07/19 23:48> Assessment and Plan - Plan Impression: Sepsis: Pneumonia likely bacterial: NSTEMI: Acute renal failure: Chronic atrial fibrillation: Lactic acidosis: Nausea vomiting and diarrhea: Plan: Sepsis: Etiology unclear but likely secondary to pneumonia seen on chest x-ray. Patient also noted to have an elevated white cell count of 17.8, lactic acid of 2.3, procalcitonin of 4.17. Urine is pending. Will start on IV antibiotic Rocephin and IV azithromycin. Russo screening complete with results pending. Patient is not requiring O2 support at this time. Continue gentle IV hydration. Pneumonia likely bacterial: Will continue IV antibiotics as above. Patient not requiring O2 support at this time. Monitor white cell count and vitals. NSTEMI: Patient has an elevated pro BNP but no history of heart failure. Troponin of 0.5 on admission. Patient does not have any cardiac symptom, denies chest pain, dyspnea on exertion or orthopnea. Denies lightheadedness or syncope. Likely require an echocardiogram and/or cardiac workup on this admission. Will continue to trend troponins. Cardiology consulted. Continue telemetry. Acute renal failure: Patient is usually a between 1.0-1.1 at baseline. Creatinine of 1.5 with a hematocrit of 33. Continue gentle IV hydration. Nephrology consult. Chronic atrial fibrillation: Rate controlled. Patient does not take anticoagulation except for aspirin. Lactic acidosis: Patient noted to have an elevated lactic acid on admission. Will continue gentle IV hydration. Continue to monitor lactic acid and vitals. Place on continuous telemetry P Nausea vomiting and diarrhea: Nausea vomiting have resolved. Patient states she only had 2 episodes and has not had any since. Diarrhea resolved earlier today and she has not had any more diarrhea since. There is concern for positive fecal occult. Patient only takes aspirin for anticoagulation. Denies any bloody stools. Does have a history of gastritis and has not taken her famotidine in several weeks. Will restart famotidine. Monitor H&H. Discharge Plan: Home Plan to discharge in: Greater than 2 days - Advance Directives Does patient have a Living Will: Yes Does patient have a Durable POA for Healthcare: Yes - Code Status/Comfort Care Code Status Assessed: Yes Time Spent Managing Pts Care (In Minutes): 55 <Sulaiman Daley - Last Filed: 10/07/19 23:48> - Plan Case discussed with physician assistant oceanographer. Agree with plan of care. Will reassess today. Continue antibiotic therapy. Will discuss further with nephrology, cardiology. <Louie Boyce - Last Filed: 10/15/19 17:36>
[2019-10-08] MEDS ORDERED: ONDANSETRON 4 MG/2 ML VIAL ONE (00:08)
[2019-10-08] MEDS ORDERED: FENTANYL CITR 100 MCG/2 ML ONE (00:08)
[2019-10-08] MEDS ORDERED: ACETAMINOPHEN 325 MG TABLET ONE (02:25)
[2019-10-08] MEDS ORDERED: NA CHLORIDE 0.9% 1,000 ML IV SCH ×2 (02:48→06:04)
[2019-10-08] MEDS ORDERED: ACETAMINOPHEN 500 MG TAB PO PRN (02:48)
[2019-10-08 02:58] VITALS: BMI 38.9
[2019-10-08 03:04] VITALS: O2SAT 96
[2019-10-08 03:36] LABS: Magnesium 2.4 mg/dL (1.8-2.4); Potassium 4.4 mmol/L (3.5-5.1)
[2019-10-08 03:37] LABS: Absolute Lymphocytes (CBC) 1.7 K/uL (0.7-4.9); Basophils % 0.2 % (0-1.3); Hematocrit 34.9 % (36.0-45.0); Lymphocytes % 8.8 % (15.3-44.8); MPV 8.7 fL (7.6-11.3); RBC Red Blood Cell Count 4.04 M/uL (3.86-4.86)
[2019-10-08] MEDS: HEPARIN 5000 UNIT/ML 1 ML VIAL SQ SCH ×3 (04:13→21:23)
[2019-10-08 05:27] LABS: Urine Appearance CLOUDY; Urine Bilirubin NEGATIVE (NEG); Urine Blood 3+ (NEG); Urine Color YELLOW; Urine Glucose NEGATIVE (NEG); Urine Protein 1+ (NEG); Urine Specific Gravity 1.015 (1.005-1.030); Urine Urobilinogen 0.2 mg/dL (0.2-1.0)
[2019-10-08 05:29] LABS: Urine Microscopic Reflex ORDER UMIC
[2019-10-08 05:46] LABS: Urine Bacteria <20 /HPF (<20); Urine Culture Reflex Order REFLEXED; Urine RBC >50 /HPF (NONE SEEN); Urine Urothelial Cells <5 /HPF (NONE SEEN)
[2019-10-08] MEDS: NA CHLORIDE 0.9% 1,000 ML IV SCH ×2 (06:07→17:16)
--- NOTE | 2019-10-08 06:07 | P.INFCA ---
Sepsis Focused Assessment - Sepsis Screen Result Severe Sepsis: Positive Septic Shock: Negative - Evaluation Current stage of sepsis: Severe sepsis - Vital Signs Reviewed: Yes Temperature: 98.3 F Heart rate: 88 Respiratory Rate: 16 O2 Sat by Pulse Oximetry: 92 - Examination Date exam was performed: 10/08/19 Time exam was performed: 06:07 Heart: Regular rate/rhythm Lungs: Crackles (LLL), Decreased breath sounds Peripheral pulses: 3+ Normal Peripheral pulse location: Radial Capillary refill: <2 Seconds Skin examination: Normal turgor
--- NOTE | 2019-10-08 08:00 | RAD REPORT ---
EXAM DESCRIPTION: RAD - Chest Single View - 10/07/2019 8:18 pm CLINICAL HISTORY: vomiting, shortness of breath COMPARISON: Due to technical malfunction is patient's prior studies were not available for compariso n. TECHNIQUE: AP portable chest image was obtained 10/07/2019 8:18 pm . FINDINGS: Lung volumes are normal. Airspace opacification is present in the mid and lower left lung field. Heart and vasculature are normal. No measurable pleural effusion and no pneumothorax. No acute bony abnormality seen. No acute aortic findings suspected. IMPRESSION: Moderately large left-sided pneumonia.
[2019-10-08] MEDS ORDERED: D50W 25 GM/50 ML SYRINGE/VIAL IV PRN (08:21)
[2019-10-08] MEDS ORDERED: GLUCAGON 1 MG/VIAL IM PRN (08:21)
[2019-10-08] MEDS ORDERED: PIPER/TAZO/NS 3.375gm 3.375 GM/100 ML BAG IVPB SCH (09:00)
[2019-10-08] MEDS ORDERED: PNEUMOCOCCAL VACCINE 0.5 ML IMVAC ONE (09:00)
[2019-10-08] MEDS ORDERED: SODIUM CHLORIDE 0.9% 10ML INJ IV PRN (09:18)
--- NOTE | 2019-10-08 10:49 | RAD REPORT ---
EXAM DESCRIPTION: US - Abdomen Exam Complete - 10/08/2019 10:08 am CLINICAL HISTORY: Elevated liver function, acute on chronic renal dz COMPARISON: Abdomen Pelvis Wo Contrast dated 10/07/2019 FINDINGS: Gallbladder is absent. Common bile duct is normal with no common duct stone identified. Liver and spleen are normal size. No focal liver lesion identifiable. No capsular nodularity. Doppler evaluation shows normal velocity and flow direction of the portal vein. No focal splenic abnormality . The pancreas is too obscured by bowel gas for assessment. No hydronephrosis or suspicious mass in either kidney. Aorta and IVC are not well visualized due to bowel gas. No ascites or bulky lymphadenopathy. IMPRESSION: Status post cholecystectomy. No abnormal biliary tree dilatation. Pancreas, aorta and IVC are too obscured by bowel gas to allow all full assessment. Clinical concerns for pancreatic or aortic abnormality can be addressed with CT imaging.
[2019-10-08] MEDS: INSULIN -REGULAR HUMAN 50 UNIT/0.5 ML ML SQ SCH ×3 (11:30→21:00)
--- NOTE | 2019-10-08 14:02 | RAD REPORT ---
EXAM DESCRIPTION: CT - Abdomen Pelvis Wo Contrast - 10/08/2019 1:31 am CLINICAL HISTORY: Nausea, vomiting, diarrhea x1 day, slight cough started today TECHNIQUE: Contiguous axial images obtained through the abdomen and pelvis without IV contrast. Dariel nal and sagittal reformatted images were provided. This exam was performed according to our departmental dose-optimization program, which includes autom ated exposure control, adjustment of the mA and/or kV according to patient size and/or use of iterati ve reconstruction technique. COMPARISON: None available for comparison. FINDINGS: Lung bases: Patchy consolidative changes with air bronchograms within the lingula. Minimal dependent left basilar consolidation. Small left pleural effusion. The heart is enlarged. Coronary a rtery calcification. Liver: Grossly unremarkable Gallbladder and biliary system: Prior cholecystectomy. Extrahepatic biliary dilatation. The common du ct measures 13 Mm in maximum diameter. No calcified ductal stones. Pancreas: Moderate pancreatic parenchymal atrophy. Spleen: Grossly unremarkable Adrenals: Unremarkable Kidneys: Cortical thinning/scar at the upper pole on the right. Partially duplicated collecting syste m on the left. There are a few calculi within the upper pole collecting system on the right, the larg est measuring. No hydronephrosis. Bowel: Colonic diverticula without adjacent inflammatory change. Moderate stool. No obstruction. No a ppreciable mucosal thickening. Appendix: Normal caliber appendix. No findings to suggest acute appendicitis. Urinary bladder: The urinary bladder is decompressed around Meadows catheter balloon. Reproductive: Unremarkable as visualized Lymph nodes: No pathologically enlarged lymph nodes. Peritoneum: No focal fluid collection. No free air. Vessels: Moderate atherosclerotic disease. No abdominal aortic aneurysm. Abdominal wall: Small fat-containing left periumbilical hernia. Bones: Osseous structures are osteopenic. Multilevel spondylosis. Grade 1 anterolisthesis of L5 on S1 . IMPRESSION: 1. No acute abnormality identified within the abdomen and pelvis. 2. Lingular infiltrate. Small left pleural effusion and minimal adjacent left lower lobe atelectasi s. 3. Other findings as above. Electronically signed by: Leroy Iglesias MD 10/07/2019 10:20 PM CDT Due to temporary technical issues with the PACS/Fluency reporting system, reports are being signed by the in house radiologist without review as a courtesy to ensure prompt reporting. The interpreting r adiologist is fully responsible for the content of the report.
--- NOTE | 2019-10-08 14:23 | P.PN ---
Subjective Date of Service: 10/08/19 Primary Care Provider: Dr. Rudd Chief Complaint: sepsis/pneumonia Subjective: Other (Patient feels better. Patient without indigestion. Patient reports that she was having indigestion yesterday.) Physical Examination - Vital Signs Temperature: 97.9 F Blood Pressure: 109/55 Pulse: 85 Respirations: 19 Pulse Ox (%): 93 - Physical Exam General: Alert, Cooperative HEENT: Atraumatic Neck: Supple Respiratory: Clear to auscultation bilaterally, Normal air movement Cardiovascular: Normal pulses, Regular rate/rhythm Gastrointestinal: Normal bowel sounds, No tenderness, No masses, No rebound, No guarding Neurological: Normal speech, Normal strength at 5/5 x4 extr, Normal tone, Normal affect - Studies Laboratory Data (last 24 hrs) 10/07/19 20:15: PT 11.2, INR 0.95 10/07/19 20:15: WBC 17.8 H, Hgb 12.2, Hct 36.8, Plt Count 116 L 10/07/19 20:15: Sodium 139, Potassium 4.2, BUN 44 H, Creatinine 1.51 H, Glucose 157 H, Magnesium 2.6 H, Total Bilirubin 0.8, AST 47 H, ALT 89 H, Alkaline Phosph atase 100, Lipase 83 Medications List Reviewed: Yes Assessment & Plan Discharge Plan: Home Plan to discharge in: 72 Hours Physician Review Additional Text: Impression: Sepsis likely related to left lower lobe pneumonia Elevated troponin likely related to stress reaction-sepsis With underlying history of chronic diastolic CHF Acute on chronic renal failure stage III Chronic atrial fibrillation not on chronic anti coagulation therapy Nausea, vomiting likely related to above with possible underlying GERD Elevated liver function etiology unknown Hyperlipidemia Diabetes mellitus type 2 insulin-dependent Chronic pain Plan: Sepsis likely related to left lower lobe pneumonia: Continue with IV fluids. Patient not given IV fluid bolus due to history of congestive heart failure. Overall stable. Blood pressure improved. Nephrology consulted for further recommendation on fluid management. Continue IV antibiotic therapy at this time. This was changed to Zosyn. Blood cultures obtained. Will obtain sputum culture. Continue monitor closely. Pro calcitonin improved. Recheck chest x- ray tomorrow. Maintain oxygen above 93%. Anticipate improvement over the next 48-72 hr. Elevated troponin likely related to stress reaction-sepsis With underlying history of chronic diastolic CHF: Fluids adjusted. Continue with IV fluids. Will need to monitor for overload. Lasix currently on hold due to acute renal failure. Acute on chronic renal failure stage III: Nephrology consulted. Await recommendation. Home medications of losartan, hydrochlorothiazide, Lasix and metformin currently on hold. Chronic atrial fibrillation not on chronic anti coagulation therapy: Overall stable. Continue aspirin and DVT prophylaxis. Nausea, vomiting likely related to above with possible underlying GERD: Will start IV Protonix. GI consulted to further evaluate. Monitor hemoglobin. Likely no need for intervention at this time. Elevated liver function etiology unknown: Etiology unknown. Initial CT scan showed extrahepatic biliary duct patient with common bile duct at 13 mm. Abdominal ultrasound shows no biliary duct palpitation. Will discuss further with GI. Will obtain hepatitis and HIV panel. Will monitor liver function. Hyperlipidemia: Continue medication Diabetes mellitus type 2 insulin-dependent: Will provide sliding scale at this time. Obtain A1c. Chronic pain: Will review home medication. Time Spent Managing Pts Care (In Minutes): 55
[2019-10-08 16:45] LABS: Urine Blood TRACE (NEG); Urine Glucose NEGATIVE (NEG); Urine Protein 1+ (NEG); Urine Specific Gravity 1.025 (1.005-1.030); Urine pH 5.5 (5.0-7.0)
[2019-10-08] MEDS: PIPER/TAZO/NS 2.25gm 2.25 GM/50 ML BAG IVPB SCH (17:16)
[2019-10-08] MEDS ORDERED: HYDROCODONE/APAP 7.5/325 MG TAB PO PRN (17:41)
[2019-10-08] MEDS ORDERED: TRAMADOL HCL 50 MG TAB PO PRN (17:41)
--- NOTE | 2019-10-08 19:30 | CON ---
Date of Consultation: 10/08/2019 Additional Consulting Physician: Dr. Boyce. Reason For Consultation: Elevated BUN and creatinine, fluid management. History Of Present Illness: This is a pleasant 84-year-old female with significant past medical hist ory of diabetes since 2011, complicated with neuropathy, no retinopathy; hypertension; hyperlipidemia ; atrial fibrillation; the patient came to the hospital complaining from abdominal pain, nausea witho ut any vomiting, diarrhea for the last 3 to 4 days. The patient denied taking any nonsteroidal, no I V contrast. Upon arrival to the hospital, the patient found to have elevated creatinine of 1.5. For that reason, we have been consulted. The patient was started on IV hydration. Kidney function star agus gradually improving. CT abdomen did not show any obstructive uropathy. Past Medical History: Includes, 1.Diabetes since 2011, complicated with neuropathy. 2.Hypertension. 3.Hyperlipidemia. 4.Atrial fibrillation. Allergies: TO SULFA AND ADHESIVE. Home Medications: Include, 1.Levothyroxine. 2.Lisinopril. 3.Hydrochlorothiazide. 4.Simvastatin. 5.Glimepiride. 6.Metformin. 7.Cipro. 8.Lasix. 9.Valacyclovir. 10.Eliquis. Past Surgical History: Includes, 1.Cataract. 2.Low back surgery. Family History: Includes hypertension and diabetes. Social History: Denies smoking. Denies drinking. Denies drug abuse. Review of Systems: Head and Neck: No red eye. No ear pain. GI: Has diarrhea. Has epigastric pain. Has nausea and vomiting. : No polyuria. No dysuria. No hematuria. [employer]ATOR: No vaginal discharge. Respiratory: No shortness of breath. Cardiovascular: No chest pain. Endocrine: No polydipsia. Skin: No rash. Neuro: Has neuropathy. Musculoskeletal: No joint pain. Physical Examination: Vital Signs: When I saw the patient, blood pressure 109/55, pulse of 85, afebrile. Chest: Clear to auscultation. Heart: S1, S2. Systolic murmur. Abdomen: Soft, nontender. Extremities: No edema. Neurologic: Alert, oriented. Nonfocal. Laboratory Data: Upon admission, sodium 139, potassium 4.2, BUN 44, creatinine 1.5, GFR of 33. Cons ecutive lab data, sodium 142, potassium 4.4, bicarb 27, BUN 38, creatinine 1.3, calcium 7.8, magnesiu m 2.4. Cardiac enzyme was negative. Urinalysis, wbc more than 50. CT abdomen, possible pneumonia a nd kidney thinning on the cortical, no obstruction. Assessment And Plan: 1.Acute kidney injury secondary to prerenal, superimposed with ARB, hydrochlorothiazide and Lasix/me tformin with toxic acute tubular necrosis secondary to urinary tract infection. I agree with holding ARB, metformin, hydrochlorothiazide, and Lasix for the time being. We will continue the patient on gentle hydration and we will follow up the patient. 2.Urinary tract infection. Continue current antibiotic. We will follow up culture. 3.Hypertension with the presence of acute kidney injury. Hold above medications. 4.Possible dilation in the gallbladder duct. Continue current antibiotic. Will follow up with the primary. 5.Diabetes with the presence of acute kidney injury. Hold metformin. LANDEN/DANIELLEL Voice ID: [id number] Report ID: [id number]
[2019-10-08] MEDS ORDERED: HOME MED 1 EA UNK (Simvastatin [Simvastatin] 80 MG) PO SCH (21:00)
[2019-10-08] MEDS ORDERED: ATORVASTATIN 40 MG TAB PO SCH (21:00)
--- NOTE | 2019-10-08 21:38 | CON ---
Date of Consultation: 10/08/2019 Reason For Consultation: Elevated troponin. Additional Admitting Physician: Louie Boyce DO History Of Present Illness: Ms. Juárez is an 84-year-old woman, who has had a history of paroxysmal atrial fibrillation, diabetes, hypertension, dyslipidemia, hypothyroidism, came in wit h acute renal failure, large left-sided pneumonia, and was noted to have elevated troponin and I was consulted. The patient denied any chest pain, nausea, vomiting, PND, orthopnea, pedal edema, palpita tions, or syncope. She did have some diaphoresis and shortness of breath. She was found to have a w leatha count of 18.8 and creatinine of 1.31. She has slightly elevated liver function enzymes. Her BN P was 3427. Her troponin was 0.50. She was hypotensive on admission resolved overnight. She is feeling better today. Her pressure is normal. . Review of Systems: Negative. Social History: Negative. Family History: Noncontributory. Medications: At home include and glipizide. Physical Examination: General: Ms. Juárez was in no acute distress. She is obese. Vital Signs: Stable. She was afebrile. She is noted to be in sinus rhythm. HEENT: Negative. Neck: Supple without any bruit, lymphadenopathy, JVD, or thyromegaly. Chest: Crackles and rales at the left base. Cardiac: Regular rhythm and rate with an aortic sclerosis. No murmur. No gallops or rubs. Abdomen: Obese, but benign. Extremities: No clubbing or cyanosis. She had trace edema. Diagnostic Studies: Her diagnostic data was stated earlier. Impression And Plan: 1.Hypotension secondary to sepsis and secondary to pneumonia. The patient is on antibiotics, hepari n, and insulin in addition to her home medication. 2.Elevated troponin, renal failure, and sepsis. 3.Elevated BNP, probably secondary to sepsis, hypotension, and renal failure. 4.Dyslipidemia. 5.Diabetes. 6.Paroxysmal atrial fibrillation. The patient is in sinus rhythm now. 7.Hypothyroidism. 8.Gastroesophageal reflux disease. As stated earlier, I am not too concerned about the troponin. I do not think this is an acute russo ry syndrome. She does not need any invasive cardiac workup now. We will see how she does down the r oad, but she will need an echocardiogram and need an outpatient stress test down the road. I would c bernice to follow her along with Dr. Boyce. SAÚL/JON Voice ID: [id number] Report ID: [id number]
[2019-10-08] MEDS ORDERED: CEFTRIAXONE/SWI 1gm 1 GM/10 ML SYR IV SCH (23:00)
[2019-10-08] MEDS ORDERED: AZITHROMYCIN IV 500 MG in NA CHLORIDE 0.9% 250 ML IVPB SCH (23:00)
[2019-10-09] MEDS: PIPER/TAZO/NS 2.25gm 2.25 GM/50 ML BAG IVPB SCH ×2 (03:32→08:13)
[2019-10-09] MEDS: NA CHLORIDE 0.9% 1,000 ML IV SCH (03:33)
[2019-10-09] MEDS: HEPARIN 5000 UNIT/ML 1 ML VIAL SQ SCH ×2 (03:33→12:53)
[2019-10-09 05:40] LABS: Absolute Lymphocytes (CBC) 0.5 K/uL (0.7-4.9); Basophils % 0.1 % (0-1.3); Hematocrit 32.6 % (36.0-45.0); Lymphocytes % 5.5 % (15.3-44.8); MPV 8.9 fL (7.6-11.3)
[2019-10-09 06:12] LABS: Albumin 2.4 g/dL (3.4-5.0); Bilirubin Total 0.6 mg/dL (0.2-1.0); Magnesium 2.6 mg/dL (1.8-2.4); Potassium 4.3 mmol/L (3.5-5.1); Protein, Total 5.1 g/dL (6.4-8.2); Thyroid Stimulating Hormone 0.086 uIU/mL (0.360-3.740)
[2019-10-09 06:31] LABS: Blood Morphology Comment NOT SEEN (NOT SEEN); Platelet Estimate DECR; White Blood Cell Scan OK
[2019-10-09] MEDS: INSULIN -REGULAR HUMAN 50 UNIT/0.5 ML ML SQ SCH ×2 (07:30→11:30)
--- NOTE | 2019-10-09 07:36 | RAD REPORT ---
EXAM DESCRIPTION: RAD - Chest Pa And Lat (2 Views) - 10/09/2019 6:06 am CLINICAL HISTORY: pneumonia COMPARISON: Portable October 06 TECHNIQUE: Frontal and lateral views of the chest were obtained. FINDINGS: The lungs are slightly underinflated. The large left-sided pneumonia has shown partial amaury aring. Significant amount of infiltrate remains. No progressive right lung field finding. Heart size is normal and central vasculature is within normal limits. No pleural effusion or pneumot horax seen. Osteopenic and degenerative bony changes are present. There is accentuated kyphosis at t he thoracolumbar junction. Spine is only partially imaged on this study. No aortic abnormality. IMPRESSION: Partial clearing of the left lung field pneumonia since October 06 imaging.
[2019-10-09] MEDS: ASPIRIN EC 81 MG TAB PO SCH ×2 (08:14→12:53)
[2019-10-09] MEDS ORDERED: PANTOPRAZOLE 40 MG INJ IVP SCH (09:00)
--- NOTE | 2019-10-09 10:02 | RAD REPORT ---
EXAM DESCRIPTION: MRI - Cholangiogram - 10/09/2019 9:46 am CLINICAL HISTORY: Elevated liver functions, evaluate CBD COMPARISON: CT abdomen and pelvis noncontrast study October 06 TECHNIQUE: Axial and coronal heavily T2 weighted sequences were obtained. Coronal T2 HASTE fat satur ation static and coronal multiplane reconstruction imaging generated and reviewed. Horizontal and keith tical axis rotational views obtained using maximum intensity projection (MIP) protocol. FINDINGS: Common hepatic duct is 14 mm in diameter. The right and left lobe main biliary radicles ar e prominent in size. Extrahepatic biliary tree tapers with the common bile duct 9 mm in diameter. No stricture or mass identified. No stones confirmed in the common bile duct. A small amount of sludge c ould be present. No abnormal pancreatic duct dilatation, stone, stricture or mass identified. IMPRESSION: Common bile duct is 9 mm which is normal for a post cholecystectomy patient. Common hepatic duct is enlarged at 14 mm but show smooth tapering down to the 9 millimeter common brian t size. No duct stone, stricture or mass identifiable.
--- NOTE | 2019-10-09 10:53 | P.DS ---
Admission Date: 10/07/19 Discharge Date: 10/09/19 Primary Care Provider: Dr. Rudd Disposition: ROUTINE DISCHARGE Discharge Condition: GOOD Reason for Admission: sepsis/pneumonia Consultations: GI-Dr. Briceño Nephrology-Dr. Flores Procedures: CT Ab: FINDINGS: Lung bases: Patchy consolidative changes with air bronchograms within the lingula. Minimal dependent left basilar consolidation. Small left pleural effusion. The heart is enlarged. Coronary artery calcification. Liver: Grossly unremarkable Gallbladder and biliary system: Prior cholecystectomy. Extrahepatic biliary dilatation. The common duct measures 13 Mm in maximum diameter. No calcified ductal stones. Pancreas: Moderate pancreatic parenchymal atrophy. Spleen: Grossly unremarkable Adrenals: Unremarkable Kidneys: Cortical thinning/scar at the upper pole on the right. Partially duplicated collecting system on the left. There are a few calculi within the upper pole collecting system on the right, the largest measuring. No hydronephrosis. Bowel: Colonic diverticula without adjacent inflammatory change. Moderate stool. No obstruction. No appreciable mucosal thickening. Appendix: Normal caliber appendix. No findings to suggest acute appendicitis. Urinary bladder: The urinary bladder is decompressed around [place] catheter balloon. Reproductive: Unremarkable as visualized Lymph nodes: No pathologically enlarged lymph nodes. Peritoneum: No focal fluid collection. No free air. Vessels: Moderate atherosclerotic disease. No abdominal aortic aneurysm. Abdominal wall: Small fat-containing left periumbilical hernia. Bones: Osseous structures are osteopenic. Multilevel spondylosis. Grade 1 anterolisthesis of L5 on S1. IMPRESSION: 1. No acute abnormality identified within the abdomen and pelvis. 2. Lingular infiltrate. Small left pleural effusion and minimal adjacent left lower lobe atelectasis. 3. Other findings as above. CXR: FINDINGS: Lung volumes are normal. Airspace opacification is present in the mid and lower left lung field. Heart and vasculature are normal. No measurable pleural effusion and no pneumothorax. No acute bony abnormality seen. No acute aortic findings suspected. IMPRESSION: Moderately large left-sided pneumonia. Follow up CXR: FINDINGS: The lungs are slightly underinflated. The large left-sided pneumonia has shown partial clearing. Significant amount of infiltrate remains. No progressive right lung field finding. Heart size is normal and central vasculature is within normal limits. No pleural effusion or pneumothorax seen. Osteopenic and degenerative bony changes are present. There is accentuated kyphosis at the thoracolumbar junction. Spine is only partially imaged on this study. No aortic abnormality. IMPRESSION: Partial clearing of the left lung field pneumonia since October 06 imaging. ABUS: FINDINGS: Gallbladder is absent. Common bile duct is normal with no common duct stone identified. Liver and spleen are normal size. No focal liver lesion identifiable. No capsular nodularity. Doppler evaluation shows normal velocity and flow direction of the portal vein. No focal splenic abnormality. The pancreas is too obscured by bowel gas for assessment. No hydronephrosis or suspicious mass in either kidney. Aorta and IVC are not well visualized due to bowel gas. No ascites or bulky lymphadenopathy. IMPRESSION: Status post cholecystectomy. No abnormal biliary tree dilatation. Pancreas, aorta and IVC are too obscured by bowel gas to allow all full assessment. Clinical concerns for pancreatic or aortic abnormality can be addressed with CT imaging. MRCP: FINDINGS: Common hepatic duct is 14 mm in diameter. The right and left lobe main biliary radicles are prominent in size. Extrahepatic biliary tree tapers with the common bile duct 9 mm in diameter. No stricture or mass identified. No stones confirmed in the common bile duct. A small amount of sludge could be present. No abnormal pancreatic duct dilatation, stone, stricture or mass identified. IMPRESSION: Common bile duct is 9 mm which is normal for a post cholecystectomy patient. Common hepatic duct is enlarged at 14 mm but show smooth tapering down to the 9 millimeter common duct size. No duct stone, stricture or mass identifiable. Medical Problem List: Sepsis secondary to left lower lobe pneumonia Elevated troponin likely related to stress reaction-sepsis With underlying history of chronic diastolic CHF Acute on chronic renal failure stage III secondary to medications and pneumonia Chronic atrial fibrillation not on chronic anti coagulation therapy Nausea, vomiting likely related to above with possible underlying GERD Elevated liver function with noted common hepatic duct enlarged at 4 mm but smooth tapering down to 9 mm common bile duct size, etiology unknown Hyperlipidemia Diabetes mellitus type 2 insulin-dependent Chronic pain Hypothyroidism Depression with anxiety Brief History of Present Illness: 84-year-old female with multiple medical problems including diabetes, hypertension, hyperlipidemia, atrial fibrillation not on chronic anti coagulation therapy. Patient reported abdominal pain, nausea vomiting and diarrhea. Episodes have been occurring over the past week without improvement. Patient was evaluated in the emergency room. Patient admitted for further evaluation. Hospital Course: Patient presented with nausea, vomiting and diarrhea. Patient found to have sepsis secondary to left lower lobe pneumonia. The patient was admitted for further evaluation. Cautious fluids was given to the patient due to her history of diastolic CHF. Patient also had acute on chronic renal disease stage III. Nephrology consulted for further recommendation. GI also consulted to further address her condition. The patient did well with IV Protonix. Patient also received IV antibiotic therapy. Recheck chest x-ray showed improvement of pneumonia. She is off of oxygen at this time. Patient without significant shortness of breath. At discharge patient will continue with Augmentin 500 mg 1 pill twice daily for 7 days. patient will also take Protonix 40 mg daily. Recommend follow up with PCP to further monitor and address. Recommend to recheck chest x-ray in 2-4 weeks to monitor resolution. As mentioned above patient had acute on chronic renal disease stage III. Kenia ent received IV fluids. It was also determine that the patient has been taking multiple medications that can also compromise kidney function. Medications including lisinopril, Lasix, and metformin were held. At discharge will recommend to discontinue lisinopril, Lasix, and metformin. Recommend future medications to be renally dose. Recommend no further use of nonsteroidal anti-inflammatories. Recommend to recheck lab-BMP in 1 week to monitor progress. Recommend follow up with Nephrology to further monitor and address. Patient had elevated troponin. This is likely stress related due to sepsis secondary to pneumonia. Patient with underlying history of CHF. As mentioned above patient was given IV fluids. Diuretics were held. At discharge will recommend to continue with a 1500 cc per day fluid restriction. At discharge will recommend to discontinue Lasix. Recommend to monitor her weight daily. Recommend follow up with cardiology and PCP to further consider adding back Lasix if required. This can also be done by nephrology. Patient may continue with aspirin 81 mg daily As mentioned above patient with nausea and vomiting. Patient likely has underlying GERD. GI was consulted. Her condition improved with Protonix. Patient previously on Prilosec. At discharge patient will continue with Protonix 40 mg daily. Patient had elevated liver function. There was some question on CT scan that the hepatic duck was enlarged. Abdominal ultrasound was unremarkable. GI recommended MRCP. MRCP showed common bile duct at 9 mm which is normal for a post cholecystectomy patient. Common hepatic duct was enlarged at 14 mm but showed smooth tapering down to 9 mm which is common bile duct size. There was no duct stone, stricture or mass identified. GI recommends follow up with GI for outpatient ERCP with possible endoscopic ultrasound. Patient is taking Ozempic as an outpatient for diabetes. Will recommend to discontinue this as this may cause GI related issues including pancreatitis. Further evaluation by GI will follow. Patient with hyperlipidemia. At discharge she may continue with her medication- Crestor 10 mg daily. Patient with underlying diabetes mellitus type 2 insulin dependent. Patient takes multiple medications. As recommended above. Metformin has been discontinued due to her chronic renal disease. Will also recommend to discontinue as mentioned above Ozempic. A1c 7.8. At discharge patient will continue with her current insulin regimen of Tresiba 15 units subcu daily and fast acting insulin as directed. Recommend to monitor blood sugar at least twice daily. Recommend to maintain blood sugar less than 140 fasting and less than 200 after meals. Further adjustment can be done by her PCP. Patient with chronic atrial fibrillation not on chronic anti coagulation therapy. Patient may continue with aspirin. Patient may continue with rate control medication metoprolol 25 mg twice daily. She should check her blood pressure and heart rate closely. May need to hold metoprolol if blood pressure systolic less than 120 or heart rate less than 50. Recommend follow up with PCP and Cardiology for further monitoring. Patient with hypertension. Patient takes metoprolol and lisinopril. Lisinopril has been discontinued as recommended above due to her renal disease. Patient may continue with metoprolol as directed but hold if systolic less than 120 or heart rate less than 50. Further adjustment can be done by her PCP. Patient with depression anxiety. Patient continue with Paxil 10 mg daily. Patient with hypothyroidism. Patient takes Synthroid 125 mcg daily. Tsh abnormal with normal free T4. Recommend to recheck lab in 2-4 weeks to monitor progress. Further adjustment may be required. This can be done with the help of her PCP. Patient with chronic pain. Patient may take Tylenol as needed for pain. Will recommend against the use of nonsteroidal anti-inflammatories. Vital Signs/Physical Exam: Temp Pulse Resp BP Pulse Ox 97 F 76 20 128/69 97 10/09/19 08:00 10/09/19 08:00 10/09/19 08:00 10/09/19 08:00 10/09/19 08:00 General: Alert, In no apparent distress, Oriented x3, Cooperative HEENT: Atraumatic Neck: Supple Respiratory: Clear to auscultation bilaterally, Normal air movement Cardiovascular: Normal pulses, Regular rate/rhythm Gastrointestinal: Normal bowel sounds, No tenderness, No masses, No rebound, No guarding Integumentary: No tenderness/swelling, No erythema, No warmth, No cyanosis Neurological: Normal speech, Normal tone, Normal affect Laboratory Data at Discharge: WBC 9.9 K/uL (4.3-10.9) D 10/09/19 05:14 Hgb 10.6 g/dL (12.0-15.0) L 10/09/19 05:14 Hct 32.6 % (36.0-45.0) L 10/09/19 05:14 Plt Count 142 K/uL (152-406) L 10/09/19 05:14 PT 11.2 SECONDS (9.5-12.5) 10/07/19 20:15 INR 0.95 10/07/19 20:15 Sodium 145 mmol/L (136-145) 10/09/19 05:14 Potassium 4.3 mmol/L (3.5-5.1) 10/09/19 05:14 BUN 24 mg/dL (7-18) H 10/09/19 05:14 Creatinine 1.10 mg/dL (0.55-1.3) 10/09/19 05:14 Glucose 135 mg/dL (74-106) H 10/09/19 05:14 Magnesium 2.6 mg/dL (1.8-2.4) H 10/09/19 05:14 Total Bilirubin 0.6 mg/dL (0.2-1.0) 10/09/19 05:14 AST 21 U/L (15-37) 10/09/19 05:14 ALT 45 U/L (12-78) 10/09/19 05:14 Alkaline Phosphatase 83 U/L (45-117) 10/09/19 05:14 Troponin I 0.50 ng/mL (0.0-0.045) H 10/08/19 18:52 Lipase 83 U/L (73-393) 10/07/19 20:15 Home Medications: Aspirin [Aspirin EC 81 MG] 81 mg PO DAILY 04/09/18 Insulin Aspart (Niacinamide) [Fiasp 100 Unit/ml Flextouch] 5 unit SQ TID 10/09/19 Insulin Degludec [Tresiba Flextouch U-100] 15 unit SQ DAILY #1 librado 10/09/19 Levothyroxine Sodium [Synthroid] 125 mcg PO DAILY 10/09/19 Metoprolol Tartrate 25 mg PO BID #60 10/09/19 Mirabegron [Myrbetriq] 1 tab PO DAILY 10/09/19 PARoxetine HCL [Paxil*] 10 mg PO DAILY 10/09/19 Rosuvastatin [Crestor*] 1 tab PO DAILY 10/09/19 New Medications: Metoprolol Tartrate 25 mg PO BID #60 Insulin Degludec [Tresiba Flextouch U-100] 15 unit SQ DAILY #1 librado Patient Discharge Instructions: 1. Recommend follow up with PCP in 1-2 weeks. 2. Patient presented with nausea, vomiting and diarrhea. Patient found to have sepsis secondary to left lower lobe pneumonia. The patient was admitted for further evaluation. Cautious fluids was given to the patient due to her history of diastolic CHF. Patient also had acute on chronic renal disease stage III. Nephrology consulted for further recommendation. GI also consulted to further address her condition. The patient did well with IV Protonix. Patient also received IV antibiotic therapy. Recheck chest x-ray showed improvement of pneumonia. She is off of oxygen at this time. Patient without significant shortness of breath. At discharge patient will continue with Augmentin 500 mg 1 pill twice daily for 7 days. patient will also take Protonix 40 mg daily. Recommend follow up with PCP to further monitor and address. Recommend to recheck chest x-ray in 2-4 weeks to monitor resolution. 3. As mentioned above patient had acute on chronic renal disease stage III. Patient received IV fluids. It was also determine that the patient has been taking multiple medications that can also compromise kidney function. Medications including lisinopril, Lasix, and metformin were held. At discharge will recommend to discontinue lisinopril, Lasix, and metformin. Recommend future medications to be renally dose. Recommend no further use of nonsteroidal anti-inflammatories. Recommend to recheck lab-BMP in 1 week to monitor progress. Recommend follow up with Nephrology to further monitor and address. 4. Patient had elevated troponin. This is likely stress related due to sepsis secondary to pneumonia. Patient with underlying history of CHF. As mentioned above patient was given IV fluids. Diuretics were held. At discharge will recommend to continue with a 1500 cc per day fluid restriction. At discharge will recommend to discontinue Lasix. Recommend to monitor her weight daily. Recommend follow up with cardiology and PCP to further consider adding back Lasix if required. This can also be done by nephrology. Patient may continue with aspirin 81 mg daily. 5. As mentioned above patient with nausea and vomiting. Patient likely has underlying GERD. GI was consulted. Her condition improved with Protonix. Patient previously on Prilosec. At discharge patient will continue with Protonix 40 mg daily. 6. Patient had elevated liver function. There was some question on CT scan that the hepatic duck was enlarged. Abdominal ultrasound was unremarkable. GI recommended MRCP. MRCP showed common bile duct at 9 mm which is normal for a post cholecystectomy patient. Common hepatic duct was enl arged at 14 mm but showed smooth tapering down to 9 mm which is common bile duct size. There was no duct stone, stricture or mass identified. GI recommends follow up with GI for outpatient ERCP with possible endoscopic ultrasound. Patient is taking Ozempic as an outpatient for diabetes. Will recommend to discontinue this as this may cause GI related issues including pancreatitis. Further evaluation by GI will follow. 7. Patient with hyperlipidemia. At discharge she may continue with her medication-Crestor 10 mg daily. 8. Patient with underlying diabetes mellitus type 2 insulin dependent. Patient takes multiple medications. As recommended above. Metformin has been discontinued due to her chronic renal disease. Will also recommend to discontinue as mentioned above Ozempic. A1c 7.8. At discharge patient will continue with her current insulin regimen of Tresiba 15 units subcu daily and fast acting insulin as directed. Recommend to monitor blood sugar at least twice daily. Recommend to maintain blood sugar less than 140 fasting and less than 200 after meals. Further adjustment can be done by her PCP. 9. Patient with chronic atrial fibrillation not on chronic anti coagulation therapy. Patient may continue with aspirin. Patient may continue with rate control medication metoprolol 25 mg twice daily. She should check her blood pressure and heart rate closely. May need to hold metoprolol if blood pressure systolic less than 120 or heart rate less than 50. Recommend follow up with PCP and Cardiology for further monitoring. 10. Patient with hypertension. Patient takes metoprolol and lisinopril. Lisinopril has been discontinued as recommended above due to her renal disease. Patient may continue with metoprolol as directed but hold if systolic less than 120 or heart rate less than 50. Further adjustment can be done by her PCP. 11. Patient with depression anxiety. Patient continue with Paxil 10 mg daily. 12. Patient with hypothyroidism. Patient takes Synthroid 125 mcg daily. Tsh abnormal with normal free T4. Recommend to recheck lab in 2-4 weeks to monitor progress. Further adjustment may be required. This can be done with the help of her PCP. 13. Patient with chronic pain. Patient may take Tylenol as needed for pain. Will recommend against the use of nonsteroidal anti- inflammatories. Diet: ADA Activity: Fall precautions Time spent managing pt's care (in minutes): 55
--- NOTE | 2019-10-09 12:38 | EKG ---
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
[2019-10-09 14:14] VITALS: BP 124/58; TEMP 97.6
--- NOTE | 2019-10-09 14:28 | PN ---
Date of Progress Note: 10/09/2019 Subjective: The patient was admitted with acute kidney injury secondary to toxic ATN secondary to UTI superimposed with prerenal superimposed with ARB, metformin, hydrochlorothiazide. After hydration, kidney function has been normalized, back to her baseline. Patient is feeling much better. Objective: Vital Signs: Blood pressure 128/68, pulse of 76, afebrile. The patient had good urine output of 2200. Chest: Clear to auscultation. Heart: S1, S2. Regular. Abdomen: Soft, nontender. Extremities: No edema. Neurologic: Alert. No focal. Laboratory Data: WBC 9.9, H and H 10.6/32.6, platelet 142. Sodium 145, potassium 4.3, bicarb 24, BUN 24, creatinine 1.1, GFR of 47. Patient's baseline creatinine back in June 2019, 1.1, GFR of 46, calcium 8, magnesium 2.6. TSH 0.08. Renal ultrasound showing no hydro. CT did not show any hydro with good sized kidney. Current Medications: The patient on include Zosyn, aspirin, atorvastatin, pantoprazole, tramadol. Assessment And Plan: 1. Acute kidney injury, multifactorial, secondary to prerenal/toxic acute tubular necrosis, superimposed with ARB, hydrochlorothiazide/metformin, recovered, resolved, back to baseline. 2. Chronic kidney disease secondary to diabetes nephropathy. Creatinine 1.1. GFR of 46. Continue to monitor. Discontinue IV fluid. The patient is going to be cleared from the renal standpoint for discharge planning to follow up in the office in 2 to 3 weeks. 3. Hypertension with the presence of recent acute kidney injury. Blood pressure been controlled. We will keep holding losartan and hydrochlorothiazide. Okay to start the patient on low dose of calcium channel miguel a, Norvasc 5 mg. 4. Urinary tract infection. I agree with current antibiotic. If need to be switched, can be on Augmentin 500 b.i.d. 5. Diabetes as by primary. 6. Diarrhea secondary to metformin as by primary, resolved. Time spend for patient Care face to face , ordering and discussing the plan of care with staff 35 min CHRISTIANO Voice ID: [id number] Report ID: [id number] [facility]ITAL[facility]
--- NOTE | 2019-10-10 07:30 | EKG ---
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
[2019-10-11 12:28] LABS: HIV AG/AB 4TH GEN Non-reactive (Non-reactive)
[2019-10-12 21:57] LABS: HBsAG Nonreactive (Nonreactive)
== END 2019-10-09 05:47 | disposition home health service (06) | DRG 871 ==
LOC: ER 19:06 → ERHOLD 23:39 → 2ND 10-08 02:32
PROVIDERS: ADMIT Hospitalist; ATTEND Family Medicine
DX: A41.9 Sepsis, unspecified organism (principal); I21.4 Non-ST elevation (NSTEMI) myocardial infarction; N17.0 Acute kidney failure with tubular necrosis; J18.9 Pneumonia, unspecified organism; I48.20 Chronic atrial fibrillation, unspecified; E87.2 Acidosis; N39.0 Urinary tract infection, site not specified; I50.32 Chronic diastolic (congestive) heart failure; I13.0 Hypertensive heart and chronic kidney disease with heart failure and stage 1 through stage 4 chronic kidney disease, or unspecified chronic kidney disease; E03.9 Hypothyroidism, unspecified; I48.0 Paroxysmal atrial fibrillation; E11.22 Type 2 diabetes mellitus with diabetic chronic kidney disease; N18.3 Chronic kidney disease, stage 3 (moderate); F43.9 Reaction to severe stress, unspecified; G89.29 Other chronic pain; F41.8 Other specified anxiety disorders; K75.9 Inflammatory liver disease, unspecified; E11.40 Type 2 diabetes mellitus with diabetic neuropathy, unspecified; K21.9 Gastro-esophageal reflux disease without esophagitis; E78.5 Hyperlipidemia, unspecified; R79.89 Other specified abnormal findings of blood chemistry; R65.20 Severe sepsis without septic shock; T50.905A Adverse effect of unspecified drugs, medicaments and biological substances, initial encounter; Z88.1 Allergy status to other antibiotic agents; Z91.048 Other nonmedicinal substance allergy status; Z79.890 Hormone replacement therapy; Z79.84 Long term (current) use of oral hypoglycemic drugs; Z79.82 Long term (current) use of aspirin; Z79.01 Long term (current) use of anticoagulants; Z90.49 Acquired absence of other specified parts of digestive tract; Z96.652 Presence of left artificial knee joint
CPT/HCPCS: 36415; 71045; 71046; 74176; 74181; 76700; 80048; 80053; 80074; 80076; 81003; 81015; 82947; 83036; 83605; 83690; 83735; 83880; 84145; 84439; 84443; 84484; 85025; 85610; 86850; 86900; 86901; 87040; 87070; 87081; 87086; 87088; 87389; 87804; 93005; 96361; 96365; 96375; 97116; 97161; 97530; 99285; C9113; J0456; J0696; J1644; J2405; J2543; J3010; J7030; J7050; U0003

== ENCOUNTER 2019-10-11 13:58 | Observation (INO) | payer OTHER ==
--- OUTSIDE RECORDS SUMMARY | 2019-10-11 14:01 | XMS REPORT | Clinical Summary ---
:1935 Author Organization [facility] Address [address] [place] [address] Care Team Providers Name Role Phone Asked, [...] claudication (P rimary Dx) 07/03/2019 Travel after 10/10/2018 Immunizations Name Administration Dates Next Due Pneumococcal [...] of 2 - PCV13) 2000 INFLUENZA VACCINE 10/29/2019 Implants Implanted Type Area Claim Clerk Device Shelf Model / Identifier Expiration Serial / Date Lot Balloon Oclsn Endocath 0.35in 90cm [id number] - [id number] Cardiova scular N/A: [employer] 20 06 / Implanted: 12/21/2017 at [facility] (Quantity not on file) Implants N/A / Knee Implant Description:left knee Procedures Procedure Name Priority Date/Time Associated Diagnosis Comme nts MRI LUMBAR SPINE WO Routine 07/11/2019 11:02 Spinal stenosis o f Results for this CONTRAST AM CDT lumbar region with procedure are in neurogenic the results claudication section. after 10/10/2018 Results MRI Lumbar Spine Wo Contrast (07/11/2019 [...] progressed at multiple levels as detailed above. [facility]-[id number] Procedure Note Hm Interface, Radiology Results Incoming [...] progressed at multiple levels as detailed above. 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
--- OUTSIDE RECORDS SUMMARY | 2019-10-11 14:02 | XMS REPORT | Continuity of Care Document ---
:1935 Author Organization [employer] [facility] Care Team Providers Name Role Phone [facility] Jukely Unavailable Un available Problems Problem Status Onset Classification Date Comments Sourc e Date Reported CCL / LHC W/ POSS PCI Active [facility] DOHERTY TO ASSI 019 Az dical [place] Unspecified atrial 08/06/2018 [facility] fibrillation [address] [place] [address] AFIB Active [address] DX:ABDOMINAL STRESS Active [facility] DYSPNEA 015 [facility] Atrial fibrillation Resolved Problem 01/03/2019 [facility] (disorder) [facility] Diabetes mellitus Resolved Problem 01/03/2019 [facility] (disorder) [facility] Hypercholesterolemia Resolved Problem 01/03/2019 [facility] (disorder) [facility] Hypertensive disorder, Resolved Problem 01/03/2019 [facility] systemic arterial Az dical (disorder) [place] Thyroid structure (body Resolved Problem 06/29/2014 1hypo [facility] structure) [facility] OTHER FORMS OF DYSPNEA Active [facility] Medications Medication Details Route Status Patient Ordering Order Source Instructions Provider Date Famotidine 20 MG Notes: (Same Inactive [place] Oral Tablet as: Pepcid) [address] [place] [address] Thyroxine Notes: Take Inactive [facility] 1 hour 019 Medical before or 2 Center hours after meal; Enteral feeds may interefere with the absorption of this medication. (Same as: Levothroid) Lisinopril Notes: (Same [place] as: 019 Medical Prinivil) [place] 24 HR mirabegron Notes: (Same Inactive [place] 50 MG Extended as: 019 Medical Release Tablet Myrbetriq [place] [Myrbetriq] ER) Non-Formular y rosuvastatin Notes: (Same [place] As: Crestor) [address] [place] [address] Plavix Notes: (Same Inactive [facility] As: Plavix) 019 Medical Center Eliquis Notes: Same Inactive [place] as: Eliquis 019 [facility] clopidogrel 75 75 mg = 1 [place] oral tablet tab, PO, 019 Medical Daily, # 90 Center tab, 3 Refill(s) Epinephrine 0.01 Route: Inactive [place] MG/ML / SUB-Q, [address] [place] [address] Lidocaine Dosing Center Hydrochloride 10 Weight MG/ML Injectable 97.273, kg, Solution ONCE, Start date: 01/01/19 2:00:00 SENIOR COMPLIANCE ANALYST, Stop date: 01/01/19 2:00:00 SENIOR COMPLIANCE ANALYST insulin degludec insulin [place] Longer [place] degludec, 14 Active [facility] Medical unit, Route: [place] SUB-Q, Daily, 12/31/18 21:30:00 SENIOR COMPLIANCE ANALYST, Duration: 30 day, Stop date: 01/30/19 9:00:00 SENIOR COMPLIANCE ANALYST, 0 Eliquis 5 mg, Route: Inactive [facility] PO, Drug [facility] Medical form: TAB, Center Q12H, Dosing Weight 97.273, kg, Start date: 12/31/18 21:00:00 SENIOR COMPLIANCE ANALYST, Duration: 30 day, Stop date: 01/30/19 9:00:00 SENIOR COMPLIANCE ANALYST Humalog Notes: (Same Inactive [facility] as: Humalog) [facility] Medical Roll in Center palms of hands gently; Do not shake vigorously. WASTE: F/P - Black; E - Municipal Trash Bin Stable for 28 days at room temperature. Expires in days from __Date metoprolol Notes: (Same No Longer [place] as tartrate as: Active [address] [place] [address] Lopressor) [place] Insulin, Aspart, Route: Inactive [place] as Human SUB-Q, [address] [place] [address] TID-Before Center Meals, Dosing Weight 97.273, kg, Start date: 12/31/18 16:30:00 SENIOR COMPLIANCE ANALYST, Duration: 30 day, Stop date: 01/30/19 11:30:00 SENIOR COMPLIANCE ANALYST Dextrose 50% 12.5 gm, 25 [place] Longer [place] Syringe mL, Route: Active [address] [place] [address] IVP, Drug [place] Form: INJ, Dosing Weight 97.273, kg, PRN, PRN Blood Glucose Results, Start date: 12/31/18 14:40:00 SENIOR COMPLIANCE ANALYST, Duration: 30 day, Stop date: 01/30/19 14:39:00 SENIOR COMPLIANCE ANALYST, 0 Glucagon 1 mg, Route: No Longer [facility] IM, Drug Active 019 Medical form: Center PDR/INJ, PRN, Dosing Weight 97.273, kg, PRN Blood Glucose Results, Start date: 12/31/18 14:40:00 SENIOR COMPLIANCE ANALYST, Duration: 30 day, Stop date: 01/30/19 14:39:00 SENIOR COMPLIANCE ANALYST, 0 Insulin Lispro Notes: (Same No Longer [facility] as: Humalog) Active 019 Medical Roll in Center palms of hands gently; Do not shake vigorously. WASTE: F/P - Black; E - Municipal Trash Bin Stable for 28 days at room temperature. Expires in days from __Date clopidogrel 75 75 mg, PO, No Longer [place] MG Oral Tablet Daily, 0 Active 019 Medical [Plavix] Refill(s) [place] Sodium Chloride 750 mL, No Longer [place] as 0.9% IV 750 mL Rate: 75 Active 019 Medical ml/hr, [place] Infuse over: 10 hr, Route: IV, Dosing Weight 97.273 kg, Total Volume: 750, Start date: 12/31/18 14:29:00 SENIOR COMPLIANCE ANALYST, Duration: 10 hr, Stop date: 01/01/19 0:28:00 SENIOR COMPLIANCE ANALYST, 2.04, m2, 0 Nitroglycerin Notes: (Same No Longer [facility] as:Nitroquic Active 019 Medical k, Center Nitrostat) "Do Not Crush" Sublingual tablet insulin degludec 14un, SUB-Q, Active [facility] Daily, 0 019 Medical Refill(s) [place] Insulin, Aspart, 4units, [place] Human [...] Weight 97.273, kg, Start date: 12/31/18 9:48:00 SENIOR COMPLIANCE ANALYST, Stop date: 12/31/18 9:48:00 SENIOR COMPLIANCE ANALYST rivaroxaban 20 20 mg = 1 Active [...] Center tab, 0 Refill(s) levothyroxine 150 Active [facility] 150 mcg (0.15 microgram = 015 Medica l mg) oral tablet 1 tab, PO, Cente r Daily, # 30 tab, 0 Refill(s) simvastatin 10 10 mg = 1 [place] mg oral tablet tab, PO, 015 Medical Bedtime, # Center 30 tab, 0 Refill(s) solifenacin 10 mg = 1 Active [facility] succinate 10 MG tab, PO, 015 Medical Oral Tablet Daily, # 30 Center [VESICARE] tab, 0 Refill(s) metoprolol 25 mg = 1 Active [facility] tartrate 25 mg tab, PO, 015 Medical oral tablet BID, # 180 Center tab, 0 Refill(s) Aspirin 81 MG 81 mg = 1 Active [facility] Enteric Coated tab, PO, 015 Medical Tablet Daily, # 0 Center tab, 0 Refill(s) Allergies, Adverse Reactions, Alerts Substance Category Reaction Severity Reaction Status Date Comments S ource type Reported sulfa drugs Assertion Drug Active [facility] Adhesive Assertion Drug Active [place] Tape [facility] Immunizations No Data Provided for This Section Results Order Name Results Value Reference Date Interpretation Comments Marcelle rce Range CARDIAC Troponin-T 0.053 0.000 - 01/01 [facility] ENZYMES 0.100 [facility] CHEM PANEL Creatinine 0.86 0.50 - 01/01 [facility] Lvl 1.40 /2018 [facility] CHEM PANEL eGFR 63 01/01 Result Comment: [...] BMI. HEMATOLOGY Hgb 9.3 12.0 - 01/01 [facility] 16.0 [facility] HEMATOLOGY Hct 29.1 36.0 - 01/01 [facility] 48.0 [facility] BLOOD BANK ABO/Rh B POS 12/31 [facility] RESULTS /2018 [facility] BLOOD BANK Antibody Negative 12/31 [facility] RESULTS Scrn (12/31/18 9:27 AM) [facility] CARDIAC Troponin-T 0.070 0.000 - 12/31 [facility] ENZYMES 0.100 [facility] CHEM PANEL Glucose Lvl 155 70 - 99 12/31 [facility] CHEM PANEL BUN 34 7 - 22 12/31 [facility] CHEM PANEL Creatinine 1.02 0.50 - 12/31 [place] Lvl 1.40 [facility] CHEM PANEL Sodium Lvl 140 135 - 145 12/31 [facility] CHEM PANEL Potassium 3.8 3.5 - 5.1 12/31 [facility] CHEM PANEL Chloride Lvl 104 95 - 109 12/31 [facility] CHEM PANEL CO2 31 24 - 32 12/31 [facility] CHEM PANEL Calcium Lvl 9.3 8.5 - 10.5 12/31 [facility] CHEM PANEL eGFR 51 12/31 Result Comment: [...] PANEL AGAP 8.8 10.0 - 12/31 20. [facility] CHEM PANEL Magnesium 2.2 1.8 - 2.4 12/31 [facility] CHEM PANEL Phosphorus 3.1 2.5 - 4.5 12/31 [facility] HEMATOLOGY WBC 9.4 3.7 - 10.4 12/31 [facility] HEMATOLOGY RBC 3.92 4.20 - 12/31 [place] 5.40 [facility] HEMATOLOGY Hgb 10.2 12.0 - 12/31 [place] 16.0 [facility] HEMATOLOGY Hct 31.6 36.0 - 12/31 [place] 48.0 [facility] HEMATOLOGY MCV 80.7 80.0 - 12/31 [place] 98.0 /2019 [facility] HEMATOLOGY MCH 26.0 27.0 - 12/31 [place] 31.0 /2019 [facility] HEMATOLOGY MCHC 32.2 32.0 - 12/31 [place] 36.0 2019 [facility] HEMATOLOGY RDW 18.4 11.5 - 12/31 [place] 14.5 2019 [facility] HEMATOLOGY Platelet 224 133 - 450 12/31 [facility] HEMATOLOGY MPV 8.5 7.4 - 10.4 12/31 [facility] HEMATOLOGY PT 14.2 12.0 - 12/31 [place] 14.7 2019 [facility] HEMATOLOGY PTT 28.8 22.9 - 12/31 [place] 35.8 2019 [facility] HEMATOLOGY INR 1.12 0.85 - 12/31 [place] 1.17 /2018 [facility] HEMATOLOGY Segs 70.0 45.0 - 12/31 [place] 75.0 /2019 [facility] HEMATOLOGY Lymphocytes 20.5 20.0 - 12/31 [place] 40.0 2019 [facility] HEMATOLOGY Monocytes 8.7 2.0 - 12.0 12/31 [facility] HEMATOLOGY Eosinophils 0.6 0.0 - 4.0 12/31 [place] /2018 [facility] HEMATOLOGY Basophils 0.2 0.0 - 1.0 12/31 [facility] HEMATOLOGY Neutrophils 6.6 1.5 - 8.1 12/31 [place] # /2019 [facility] HEMATOLOGY Lymphocytes 1.9 1.0 - 5.5 12/31 [place] # /2018 [facility] HEMATOLOGY Monocytes # 0.8 0.0 - 0.8 12/31 [place] /2019 [facility] HEMATOLOGY Eosinophils 0.1 0.0 - 0.5 12/31 [place] # /2019 [facility] CARDIAC BNP 277 <=100 01/16 [facility] ENZYMES pg/mL [facility] CHEM PANEL Phosphorus 2.8 2.5 - 4.5 01/16 [facility] CHEM PANEL Magnesium 2.3 1.8 - 2.4 01/16 [facility] Lvl /2017 [facility] ELECTROLYTES AGAP 8.1 10.0 - 01/16 [place] 20.0 [facility] ELECTROLYTES eGFR 45 01/16 [facility] Comment: The Medical eGFR is Center [...] 8.2 8.5 - 10.5 01/16 [place] [facility] ELECTROLYTES CO2 29 24 - 32 01/16 [facility]2017 [facility] ELECTROLYTES Chloride Lvl 107 95 - 109 01/16 [place] [facility] ELECTROLYTES Potassium 3.1 3.5 - 5.1 01/16 [place] L[place] [facility] ELECTROLYTES Sodium Lvl 141 135 - 145 01/16 [place] as [facility] ELECTROLYTES Glucose Lvl 101 70 - 99 01/16 [place] [facility] ELECTROLYTES Creatinine 1.14 0.50 - 01/16 [facility] Lvl 1.40 [facility] ELECTROLYTES BUN 33 7 - 22 01/16 [facility] HEMATOLOGY INR 1.09 0.85 - 01/16 [place] 1.17 [facility] HEMATOLOGY PT 14.1 12.0 - 01/16 [place] 14.7 [facility] HEMATOLOGY PTT 25.6 22.9 - 01/16 [place] 35.8 [facility] HEMATOLOGY Platelet 159 133 - 450 01/16 [facility]2017 [facility] HEMATOLOGY MPV 9.1 7.4 - 10.4 01/16 [facility]2017 [facility] HEMATOLOGY MCHC 33.2 32.0 - 01/16 [place] 36.0 [facility] HEMATOLOGY RDW 14.6 11.5 - 01/16 [place] 14.5 [facility] HEMATOLOGY WBC 6.5 3.7 - 10.4 01/16 [facility] HEMATOLOGY RBC 3.98 4.20 - 01/16 [place] 5.40 [facility] HEMATOLOGY Hgb 12.3 12.0 - 01/16 [place] 16.0 [facility] HEMATOLOGY MCV 92.9 80.0 - 01/16 [place] 98.0 [facility] HEMATOLOGY Hct 37.0 36.0 - 01/16 [place] 48.0 [facility] HEMATOLOGY MCH 30.8 27.0 - 01/16 [place] 31.0 [facility] HEMATOLOGY Lymphocytes 1.5 1.0 - 5.5 01/16 [place] # [facility] HEMATOLOGY Segs 62.9 45.0 - 01/16 [place] 75.0 [facility] HEMATOLOGY Lymphocytes 23.2 20.0 - 01/16 [place] 40.0 [facility] HEMATOLOGY Neutrophils 4.1 1.5 - 8.1 01/16 [facility] HEMATOLOGY Monocytes # 0.8 0.0 - 0.8 01/16 [facility] HEMATOLOGY Basophils 0.5 0.0 - 1.0 01/16 [facility] HEMATOLOGY Eosinophils 0.1 0.0 - 0.5 01/16 [facility] # [facility] HEMATOLOGY Monocytes 12.0 2.0 - 12.0 01/16 [facility] HEMATOLOGY Eosinophils 1.4 0.0 - 4.0 01/16 [facility] BLOOD BANK Antibody Negative 06/26 [facility] RESULTS Scrn (06/26/14 5:48 AM) [facility] BLOOD BANK ABO/Rh B POS 06/26 [facility] RESULTS [facility] CHEM PANEL Magnesium 2.0 1.8 - 2.4 06/26 [facility] Lvl /2014 [facility] ELECTROLYTES AGAP 13.8 10.0 - 06/26 [place] 20.0 [facility] ELECTROLYTES eGFR 70 06/26 <sup>1</sup>Re [place] [...] 8.8 8.5 - 10.5 06/26 [place] [facility] ELECTROLYTES Chloride Lvl 105 95 - 109 06/26 [place] [facility] ELECTROLYTES CO2 26 24 - 32 06/26 2014 [facility] ELECTROLYTES Potassium 3.8 3.5 - 5.1 06/26 [place] L[place] [facility] ELECTROLYTES Sodium Lvl 141 135 - 145 06/26 [facility] ELECTROLYTES Creatinine 0.8 0.5 - 1.4 06/26 [facility] as l [facility] ELECTROLYTES BUN 16 7 - 22 06/26 2014 [facility] ELECTROLYTES Glucose Lvl 143 70 - 99 06/26 <sup>2</sup>In terpretive Medical Data: Adult Center reference range values reflect the clinical guidelines<br/ >of the [place] [employer]. HEMATOLOGY Eosinophils 1.7 0.0 - 4.0 06[facility]26 [facility] HEMATOLOGY Basophils 0.5 0.0 - 1.0 06/26 [facility] HEMATOLOGY Lymphocytes 20.0 20.0 - 06/26 [place] 40.0 [facility] HEMATOLOGY Monocytes 11.3 2.0 - 12.0 06/26 [facility] HEMATOLOGY Segs 66.5 45.0 - 06/26 [place] 75.0 [facility] HEMATOLOGY Eosinophils 0.1 0.0 - 0.5 06/26 [place] # [facility] HEMATOLOGY Segs-Bands # 4.7 1.5 - 8.1 06/26 [place] as [facility] HEMATOLOGY Lymphocytes 1.4 1.0 - 5.5 06/26 [place] # [facility] HEMATOLOGY Monocytes # 0.8 0.0 - 0.8 06/26 [place] /2014 [facility] HEMATOLOGY INR 1.08 0.85 - 06/26 <sup>4</sup>In [place] as 1.17 terpretive Medical Data: Center RECOMMENDED RANGES FOR PROTIME INR:
2.0-3.0 for most medical and surgical thromboembolic states.
2.5-3.5 for artificial heart valves and recurrent embolism.

INR SHOULD BE USED ONLY FOR PATIENTS ON STABLE ANTICOAGULANT THERAPY. HEMATOLOGY PT 14.1 12.0 - 06/26 14.7 [facility] HEMATOLOGY PTT 30.5 22.9 - 06/26 <sup>5</sup>In [place] as 35. terpretive Medical Data: [facility] Therapeutic Range: 57 - 92 [place] HEMATOLOGY MPV 9.1 7.4 - 10.4 06/26 [facility] HEMATOLOGY MCH 29.5 27.0 - 06/26 31.0 [facility] HEMATOLOGY MCV 89.3 80.0 - 06/26 [place] 98.0 /2014 [facility] HEMATOLOGY Platelet 195 133 - 450 06/26 [facility] HEMATOLOGY RDW 15.5 11.5 - 06/26 14.5 [facility] HEMATOLOGY MCHC 33.0 32.0 - 06/26 36.0 /2014 [facility] HEMATOLOGY WBC 7.1 3.7 - 10.4 06/26 [facility] HEMATOLOGY Hgb 12.7 12.0 - 06/26 16.0 [facility] HEMATOLOGY RBC 4.30 4.20 - 06/26 5.40 /2014 [facility] HEMATOLOGY Hct 38.4 36.0 - 06/26 48.0 /2014 [facility] LIPIDS CHD Risk 6.12 3.90 - 06/26 5.80 [facility] LIPIDS VLDL 77 06/26 [facility] LIPIDS LDL 51 <=99 mg/dL 06/26 [facility] (Calculated) /2014 [facility] LIPIDS HDL 25 >=61 mg/dL 06/26 [facility] LIPIDS Trig 386 <=149 06/26 mg/dL /2014 [facility] LIPIDS Chol 153 <=199 06/26 <sup>3</sup>Re [facility] mg/dL /2014 sult Comment: Medical Specimen Center Slightly Hemolyzed. Pathology Reports No Data Provided for This Section Diagnostic Reports No Data Provided for This Section Consultation Notes No Data Provided for This Section Discharge Summaries No Data Provided for This Section History and Physicals No Data Provided for This Section Vital Signs Vital Sign Value Date Comments Source Respitory Rate 27 01/01/2019 [facility] bruce Center Systolic (mm Hg) 132 01/01/2019 [facility] [place] dical Center Diastolic (mm Hg) 62 01/01/2019 [facility] edical Center Respitory Rate 15 01/01/2019 [facility]ce Center Systolic (mm Hg) 140 01/01/2019 [facility] [place] dical Center Diastolic (mm Hg) 64 01/01/2019 [facility] edical Center Respitory Rate 16 01/01/2019 [facility]ce Center Systolic (mm Hg) 134 01/01/2019 [facility] [place] dical Center Diastolic (mm Hg) 63 01/01/2019 [facility] Temperature Oral (F) 99.5 F 01/01/[address] [facility] [place] Height 147.32 cm 12/31/2018 [facility] Weight 97.273 12/31/2018 [facility] BMI Calculated 44.82 12/31/2018 [facility]ce Center Systolic (mm Hg) 124 01/16/2018 [facility] [place] dical Center Diastolic (mm Hg) 61 01/16/2018 [facility] edical Center Respitory Rate 22 01/16/2018 [facility] Center Systolic (mm Hg) 131 01/16/2018 [facility] [place] d[facility] Center Diastolic (mm Hg) 64 01/16/2018 [facility] edical Center Respitory Rate 15 01/16/2018 [facility]ce Center Systolic (mm Hg) 154 01/16/2018 [facility] [place] dical Center Diastolic (mm Hg) 81 01/16/2018 [facility] edical Center Respitory Rate 18 01/16/2018 [facility] Center Temperature Oral (F) 97.5 F 01/16/[address] [facility] [place] Height 157.48 cm 01/16/2018 [facility] Weight 96.818 01/16/2018 [facility] BMI Calculated 39.04 01/16/2018 [facility]ce Center Systolic (mm Hg) 161 06/26/2014 [facility] [place] dical [place] Diastolic (mm Hg) 71 06/26/2014 [facility] [place] Systolic (mm Hg) 147 06/26/2014 [facility] [place] d[facility] Center Diastolic (mm Hg) 71 06/26/2014 [facility] Center Respitory Rate 16 06/26/2014 [facility] Systolic (mm Hg) 131 06/26/2014 [facility] [place] dical [place] Diastolic (mm Hg) 62 06/26/2014 [facility] edical Center Respitory Rate 16 06/26/2014 [facility] Respitory Rate 16 06/26/2014 [facility] Weight 109.545 06/26/2014 [facility] Height 157.48 cm 06/26/2014 [facility] BMI Calculated 44.17 06/26/2014 [facility] Temperature Oral (F) 97.7 F 06/26/[address] [facility] [place] Encounters Location Location Encounter Encounter Reason Attending ADM DC Stat us Source Details Type Number For Provider Date Date Visit [facility] [id number] [facility] 06/26 06/26 [facility] Outpatient Ricardo /2014 [facility] Outpatient [id number] [facility] 01/16 01/17 [facility] Ricardo /2017 [facility] Bedded [id number] [facility] 12/31 01/01 [facility] Outpatient Ricardo /2018 [facility] Procedures Procedure Code Date Perfomer Comments Source Back [id number] back surgery [facility]<sup>1</sup> with shaved Medical off [facility] Center Carpal tunnel [id number] [facility] Gallbladder [id number] [facility] Kidney stone [id number] [facility] Knee replacement [id number] [facility] Assessment and Plan No Data Provided for This Section Plan of Care No Data Provided for This Section Social History Social History Date Source Social History TypeResponse 06/26/2014 [facility] Never Smoking Status Never smoker; Exposure to Tobacco Smoke None; Cigarette Smoking Last 365 Days No; Reg Smoking Cessation Counseling No entered on: 12/31/18 Family History No Data Provided for This Section Advance Directives No Data Provided for This Section Functional Status No Data Provided for This Section
--- OUTSIDE RECORDS SUMMARY | 2019-10-11 14:04 | XMS REPORT | Continuity of Care Document ---
:1935 Author Organization [facility] t Address [address] [place] [address] Care Team Providers Name Role Phone Asked, Pcp Primary Care Physician Unavailable Jayashree Vasques MD Attending Clinician BENY Attending Clinician Unavailable Dilip Silva Attending Clinician STEPHANIE Attending Clinician Unavailable Dilip Silva Admitting Clinician Payers Payer Name Policy Policy Number Effective Expiration Source Type Date Date MEDICAREMEDICARE PART xxxxxxxxxxx 2000 Devin Allen AND 00:00:00 [facility] B[facility]xxx2000[place] Problems Condition Condition Condition Status Onset Resolution Last Treating Co mments Source Name Details Category Date Date Treatment Clinician Date CCL / LHC Diagnosis Active 2019-08-22 Memoria W/ POSS 11-20 11:10:00 l PCI CCL / 00:00: Ceasar [facility] W/ 00 TO ASSI POSS PCI DOHERTY TO ASSI Active 11/20/2018 [facility] Acute deep Acute deep Disease [place] vein vein 4-18 Methodi thrombosis thrombosis 00:00: st (DVT) of (DVT) of 00 proximal proximal vein of vein of both lower both lower extremitie extremitie s s Acute Acute Disease Active [place] 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 00:00: st 00 AFIB Diagnosis Active 2017-022018-01-16 Mem oria 03-07 07:32:00 l AFIB 00:00: Ceasar 00 Active 01/05/2018 [facility] Electrolyt Electrolyt Disease Active 2017-02 [place] and e and 0-24 Methodi fluid fluid 00:00: st disorder disorder 00 Atrial Atrial Disease Active 2017-02 [place] fibrillati fibrillati 0-24 Me thodi on, on, 00:00: st persistent persistent 00 DX:ABDOMIN Diagnosis Active 2014-08-14 Memoria AL STRESS 06-25 12:24:00 l DYSPNEA 00:00: [place] DX:ABDOMIN 00 AL STRESS DYSPNEA Active 06/25/2014 [facility] Myopathy Myopathy Problem Active [facility] [place] [facility] Diabetic Diabetic Problem Active [facility]urop [facility] Vitamin Problem Active [facility] B12 B12 [place] [facility] Pernicious Pernicious Problem Active U nivers anemia anemia [facility] [place] [facility] Post Post Problem Active [facility] procedure procedure [place] of discomfort [place] [facility] Swelling Swelling Problem Active [facility] [place] [facility] Arm pain Arm pain Problem Active [facility] [place] [facility] Atrial Problem Resolve 2019-01-03 Tarik mark fibrillati d 22:18:31 l on Atrial Ceasar (disorder) fibrillati on (disorder) Resolved Problem 01/03/2019 [facility] Diabetes Problem Resolve 2019-01-03 Me moria mellitus d 22:18:31 l (disorder) Diabetes He rmann mellitus (disorder) Resolved Problem 01/03/2019 [facility] Hyperchole Problem Resolve 2019-01-03 Memoria sterolemia d 22:18:31 l (disorder) Patrick n Hyperchole sterolemia (disorder) Resolved Problem 01/03/2019 [facility] Hypertensi Problem Resolve 2019-01-03 Memoria ve d 22:18:31 l disorder, Ceasar systemic Hypertensi arterial ve (disorder) disorder, systemic arterial (disorder) Resolved Problem 01/03/2019 [facility] Thyroid Problem Resolve 2014-06-29 Mem oria structure d 03:25:12 l (body Thyroid Ceasar structure) structure (body structure) Resolved Problem 06/29/2014 1hypo [facility] OTHER Diagnosis Active 2018-01-16 Mem oria FORMS OF 07:32:00 l DYSPNEA OTHER Ceasar FORMS OF DYSPNEA Active [facility] Unspecifie Problem 2017-022018-08-06 2018-08-06 Memoria d atrial 03-25 11:11:11 11:11:11 l fibrillati 04:33: Patrick n on Unspecifie 17 d atrial fibrillati on 01/23/2018 08/06/2018 [facility] Allergies, Adverse Reactions, Alerts Allergy Allergy Status [...] Allergy Active Univers to drug ity of ([facility] ) Physici ans sulfa sulfa Active Memoria drugs drugs l [place] Adhesive Adhesive Active Memori a Tape Tape l Ceasar Family History Family Member Diagnosis Comments Start Date Stop Date Source Natural mother [facility] Natural mother Diabetes [facility] Social History Social Habit Start Date Stop Date Quantity Comments Source Sex Assigned At [facility] ethodist Alcohol intake 2018-09-17 2018-09-17 Current [facility] 00:00:00 00:00:00 non-drinker of alcohol ([facility]) Social History 2014-06-26 2014[facility] 12:26:[facility] 12:26:50 Smoking Status Start Date Stop Date Source Never smoker [facility] Medications Ordered Filled Start Stop Current Ordering [...] Memoria 1-05 Same as: l 15:00: Eliquis [place] 00 clopidogrel 2018-02 Yes 75 mg = 1 M emoria 75 mg oral 1-05 tab, PO, l tablet 13:00: Daily, # [place] 00 90 tab, 3 Refill(s) Epinephrine 2018-02 No Route: Tarik mark 0.01 MG/ML 1-05 SUB-Q, l / Lidocaine 08:00: Dosing Herm ciaran Hydrochlori 00 Weight de 10 MG/ML 97.273, Injectable kg, ONCE, Solution Start date: 01/01/19 2:00:00 OIL DISTRIBUTOR, Stop date: 01/01/19 2:00:00 OIL DISTRIBUTOR insulin 2018-02 No insulin Memoria degludec 1-05 degludec, l 03:30: 14 unit, Ceasar 00 Route: SUB-Q, Daily, 12/31/18 21:30:00 OIL DISTRIBUTOR, Duration: 30 day, Stop date: 01/30/19 9:00:00 OIL DISTRIBUTOR, 0 Eliquis 2018-02 No 5 mg, Memoria 05 Route: PO, l 03:00: Drug form: [place] 00 TAB, Q12H, Dosing Weight 97.273, kg, Start date: 12/31/18 21:00:00 OIL DISTRIBUTOR, Duration: 30 day, Stop date: 01/30/19 9:00:00 OIL DISTRIBUTOR Humalog 2018-02 No Notes: Memoria 1-04 (Same as: l 23:28: Humalog) [place] 00 Roll in palms of hands gently; [...] Weight 97.273, kg, Start date: 12/31/18 16:30:00 OIL DISTRIBUTOR, Duration: 30 day, Stop date: 01/30/19 11:30:00 OIL DISTRIBUTOR Dextrose 2018-02 No 12.5 gm, Memor ia 50% Syringe -04 25 mL, l 20:40: Route: IVP, Drug Form: INJ, Dosing Weight 97.273, kg, PRN, PRN Blood Glucose Results, Start date: 12/31/18 14:40:00 OIL DISTRIBUTOR, Duration: 30 day, Stop date: 01/30/19 14:39:00 OIL DISTRIBUTOR, 0 Glucagon 2018-02 No 1 mg, Memoria 1- Route: IM, l 20:40: Drug form: PDR/INJ, PRN, Dosing Weight 97.273, kg, PRN Blood Glucose Results, Start date: 12/31/18 14:40:00 OIL DISTRIBUTOR, Duration: 30 day, Stop date: 01/30/19 14:39:00 OIL DISTRIBUTOR, 0 Insulin 2018-02 No Notes: Memoria Lispro [...] Total Volume: 750, Start date: 12/31/18 14:29:00 OIL DISTRIBUTOR, Duration: 10 hr, Stop date: 01/01/19 0:28:00 OIL DISTRIBUTOR, 2.04, m2, 0 Nitroglycer 2018-02 No Notes: Tarik mark in 03-02 (Same l 20:29: as:Nitroqu [place] 00 ick, Nitrostat) "Do Not Crush" Sublingual [...] tab, PO, l Tablet 15:55: Daily, 0 [place] 00 Refill(s) 24 HR 2018-02 Yes 50 mg = 1 Memoria mirabegron 1-04 tab, PO, l 50 MG 15:55: Daily, # [place] Extended 00 30 tab, 0 Release Refill(s) Tablet [Myrbetriq] apixaban 5 2018-02 Yes 5 mg, PO, Me moria MG Oral 1-04 Q12H, 0 l Tablet 15:55: Refill(s) Patrick n [Eliquis] 00 Furosemide 2018-02 Yes 40 mg = 1 Me moria 40 MG Oral 1-04 tab, PO, l Tablet 15:55: BID, 0 [place] 00 Refill(s) Aspirin 325 2018-02 No 325 mg, 1 M emoria MG Oral 1-04 tab, l Tablet 15:48: Route: PO, Jenny nn 00 ONCE, Dosing Weight 97.273, kg, Start date: 12/31/18 9:48:00 OIL DISTRIBUTOR, Stop date: 12/31/18 9:48:00 OIL DISTRIBUTOR Cyanocobala Cyanocobala Yes SUUR INJECT 1 Univers [...] tab, PO, l Tablet 11:04: QPM, 0 [place] [Xarelto] 00 Refill(s) glimepiride Yes 1 mg = 1 Me moria 1 mg oral 4-30 tab, PO, l tablet 11:04: BID, # 30 Patrick n 00 tab, 0 Refill(s) lisinopril Yes 2.5 mg = 1 M emoria 2.5 mg oral 4-30 tab, PO, l tablet 11:04: Daily, # [place] 00 30 tab, 0 Refill(s) levothyroxi Yes [...] Source BP Systolic 2019-04-11 99 mm[Hg] Location: [facility] 10:44:00 Position: [place] Phys[facility] s Sitting BP Diastolic 2019-04-11 60 mm[Hg] Location: [facility] 10:44:00 Position: [place] Physician s Sitting Height 2019-04-11 62 [in_us] [facility] 10:44:00 [place] [facility] Weight 2019-04-11 209 [lb_av] [facility] 10:44:00 [place] [facility] [facility] Body Mass Index 2019-04-11 38.23 kg/m2 University o f Calculated 10:44:00 [place] [facility] Heart Rate 2019-04-11 49 /min [facility] 10:44:00 [place] Phys[place] [facility] Respitory Rate [...] 15:23:00 BP Systolic 2018-08-23 120 mm[Hg] Location: [facility] 09:11:00 Position: [place] Physician s Sitting BP Diastolic 2018-08-23 52 mm[Hg] Location: [facility] 09:11:00 Position: [place] Physician s Sitting Height 2018-08-23 62 [in_us] [facility] 09:11:00 [place] [facility] Weight 2018-08-23 212 [lb_av] [facility] 09:11:00 [place] [facility] Body Mass Index 2018-08-23 38.78 kg/m2 University o f Calculated 09:11:00 [place] [facility] Temperature 2018-08-23 97.2 [degF] Method: Oral [facility] 09:11:00 [place] [facility] Heart Rate 2018-08-23 61 /min Location: [facility] 09:11:00 Apical; [place] [facility] Systolic (mm Hg) 2018-01-16 [facility] [...] SPINE WO 2019-07-11 11:02:00 Boyd Vasques on [facility] CONTRAST [QL] VITAMIN B12 2019-04-11 00:00:00 [facility] Physicians [QLH] METHYLMALONIC ACID 2019-04-11 00:00:00 [facility] US Extremity upper 2018-08-27 00:00:00 [facility] (non-vascular) [id number] Physicians [QLH] INTRINSIC FACTOR 2018-08-24 00:00:00 Unive [facility] BLOCKING ANTIBODY Physicians [Q] PARIETAL CELL AB 2018-08-24 00:00:00 [facility] W/REFL TITER Physicians [UTP] EMG 2018-08-23 00:00:00 [facility] o [facility] Physicians [QLH] VITAMIN B12 2018-08-23 00:00:00 [facility] Physicians [QLH] VITAMIN B1, WHOLE 2018-08-23 00:00:00 [facility] BLOOD [facility] [QLH] VITAMIN B6 2018-08-23 00:00:00 [facility] Physicians [QLH] COPPER 2018-08-23 00:00:00 [facility] Physicians [QLH] FOLATE, SERUM 2018-08-23 00:00:00 [facility] Physicians [QLH] Zinc Lvl 2018-08-23 00:00:00 [place] Physicians [QLH] SHARI PANEL, 2018-08-23 00:00:00 [facility] COMPREHENSIVE Physicians [QLH] HEMOGLOBIN A1c 2018-08-23 00:00:00 [facility] Physicians [QLH] IRON, TOTAL 2018-08-23 00:00:00 [facility] Physicians [QLH] METHYLMALONIC ACID 2018-08-23 00:00:00 Uni [facility] Physicians [QLH] SED RATE BY 2018-08-23 00:00:00 [facility] MODIFIED [place] Physicians [QLH] SJOGRENS ANTIBODIES 2018-08-23 00:00:00 [facility] ([facility],SS-B[facility] Physicians [QLH] RHEUMATOID FACTOR 2018-08-23 00:00:00 [facility]QLH] C-REACTIVE PROTEIN 2018-08-23 00:00:00 Uni [facility] Physicians [QLH] CREATINE KINASE, 2018-08-23 00:00:00 Unive [facility] TOTAL Physicians [QLH] CBC (INCLUDES 2018-08-23 00:00:00 [facility] DIFF/PLT) Physicians [QLH] T4, TOTAL 2018-08-23 00:00:00 [facility] (THYROXINE) Physicians [QLH] TSH, 3RD GENERATION 2018-08-23 00:00:00 [facility] [place] W/REFLEX TO FT4 Physicians [QLH] VITAMIN E 2018-08-23 00:00:00 [place] (TOCOPHEROL) Physicians [QLH] VITAMIN D, 2018-08-23 00:00:00 [facility] 25-HYDROXY, LC/MS/MS Physicians [QL] IMMUNOFIXATION, 2018-08-23 00:00:00 [facility] SERUM Physicians [QL] IMMUNOFIXATION, 2018-08-23 00:00:00 [facility] URINE Physicians [QLH] CMP W/EGFR 2018-08-23 00:00:00 [facility] Physicians [QL] PARANEOPLASTIC 2018-08-23 00:00:00 [facility] AUTOANTIBODY EVAL. S Physicians Back care<sup>1</sup> [facility] Carpal tunnel release [facility] Gallbladder excision [facility] Kidney stone analysis [facility] Knee replacement [facility] Plan of Care Planned Activity Planned Date Details Comments Source Future Scheduled 2019-10-29 INFLUENZA VACCINE [place] [facility] 00:00:00 [code = INFLUENZA VACCINE] Diagnostic Test 2018-08-23 [UTP] EMG [code = [facility] Pending 00:00:00 [UTP] EMG] Physicians Future Scheduled 2000 65+ PNEUMOCOCCAL [place] [facility] Test 00:00:00 VACCINE (1 of 2 - PCV13) [code = 65+ PNEUMOCOCCAL VACCINE (1 of 2 - PCV13)] Future Scheduled 1985 SHINGLES VACCINES [place] [facility] Test 00:00:00 (#1) [code = SHINGLES VACCINES (#1)] Future Scheduled 1945 DIABETIC FOOT EXAM [place] [facility] Test 00:00:00 [code = DIABETIC FOOT EXAM] Future Scheduled 1945 URINE MICROALBUMIN [place] [facility] Test 00:00:00 [code = URINE MICROALBUMIN] Future Scheduled 1935 DIABETIC RETINAL EYE Chandrika ston [facility] Test 00:00:00 EXAM [code = DIABETIC RETINAL EYE EXAM] Encounters Start End Encounter Admission Attending Care Care Encounter Source Date/Time Date/Time Type Type Clinicians Facility Department ID 2019-07-11 2019-07-11 Outpatient ESTELITA, [facility] [id number] [place] 00:00:00 00:00:00 BOYD 350 Method i 2019-07-11 2019-07-11 Outpatient ESTELITA, [facility] [id number] [place] 00:00:00 00:00:00 BOYD 469 Method i 2019-07-04 2019-07-04 Outpatient ESTELITA [facility] [id number] [place] 00:00:00 00:00:00 BOYD 695 Method i 2019-04-11 2019-04-11 SHIMA Uribe Neurology - [id number] Univers 10:00:00 10:00:00 t[facility] [place] [facility] 2018-12-31 2019-01-01 Outpatient Ricardo, [facility] [id number] 09:04:00 08:40:00 Ayaan Ashlee Cherry 2018-12-31 2018-12-31 Outpatient [facility] CAR [id number] [facility] 09:04:00 09:04:00 2018-12-13 2018-12-[address] [facility] [id number] Univers 11:30:00 11:30:00 t; Jus QUINTEROS Dalia QUINTEROS M.D. Physi ci ans 2018-11-15 2018-11-[address] [facility] [id number] Univers 11:00:00 11:00:00 t; Jus QUINTEROS [place] SUUR, M.D. Physi ci ans 2018-08-23 2018-08-23 SHIMA Uribe Neurology - [id number] Univers 09:00:00 09:00:00 t; [facility]. [place] [facility] ans 2018-08-23 2018-08-23 SHIMA Tuttle Neurology - [id number] Univers 09:00:00 09:00:00 t; ARI BROWN [place] ity of KRISTIN, M.D. [facility] Physici ans 2018-01-16 2018-01-16 Outpatient Ricardo [facility] [id number] 07:20:00 23:59:00 Ayaan 01 Cherry 2014-06-26 2014-06-26 Outpatient CARLOS Silva [place] [id number] 05:24:00 12:04:00 Ayaan 00 Cherry Results [...] are progressed at multiple levels as detailed above.[id number] [[facility]] METHYLMALONIC ACID 2019-04-11 12:09:00 Test Item Value Reference Range Interpretation Comme nts METHYLMALONIC ACID (test 438 nmol/L 87-318 Thi s test was developed and its code = METHYLMALONIC ACID) a nalytical performancecharacteristics have been deter mined by [facility]. It has not beencleared or approved by FDA . This assay has been validatedpursua nt to the CLIA regulations and is used for clinicalpurpose s.SPECIMEN RECEIVED DATE AND TIME: [id number] [facility]] VITAMIN [id number] 12:09:00 Test Item Value Reference Range Interpretation Comments VITAMIN B12 (test 744 pg/ml 200-1100 N SPECIMEN R ECEIVED DATE code = VITAMIN B12) AND TIME : [facility] PhysiciansCARDIAC [id number] 10:08:000.053[facility] HermannCHEM [id number] 10:08:000.86[facility] HermannCHEM [id number] 10:08:0063[facility] FjieiuxHYBFSZRKOJ1081-91-80 10:08:009.3[facility] Ceasar JMCPOUSAKL0861-44-61 10:08:0029.1[facility] HermannBLOOD BANK [id number] 15:27:00Negative (12/31/18 9:27 AM)[facility] HermannCARDIAC WZGFQMA0861-03-83 15:27:000.070[facility] HermannCHEM [id number] 15:27:78716Pxpwrzzi [place] CHEM [id number] 15:27:0034[facility] HermannCHEM UGZDS4514-15-22 15:27:001.02 [facility] HermannCHEM [id number] 15:27:54553Jyojytnp HermannCHEM PANEL 2018-12-31 15:27:003.8[facility] HermannCHEM [id number] 15:27:23850Tkomsqkt HermannCHEM BTYHK9781-45-09 15:27:0031[facility] HermannCHEM NNGCJ8489-77-83 15:27:009.3[facility] HermannCHEM OUFVZ3968-75-49 15:27:0051[facility] HermannCHEM BAGHF0273-59-76 15:27:008.8[facility] HermannCHEM VYWYS4516-40-15 15:27:002.2 [facility] HermannCHEM NLQOZ5730-91-01 15:27:003.1[facility] HermannHEMATOLOGY 2018-12-31 15:27:009.4[facility] CyvbkfeHHYMBWXWVB4803-06-10 15:27:003.92[facility]orial KepmvgpRRLFQZNUEG2032-02-06 15:27:0010.2[facility] VoovfdoDJDMNVYDAY9805-86-40 15:27:0031.6[facility]orial RcnqafnEBVLTXOHBL7094-73-77 15:27:0080.7[facility] Ceasar ALYGTQJXGS4973-42-09 15:27:00 Test Item Value Reference Range Interpretation Comments MCH (test code = MCH) 26.0 pg 27.0-31.0 Memorial PhqukvcSXVZRJIMMA0369-95-78 15:27:0032.2[facility] HermannHEMATOLOGY 2018-12-31 15:27:0018.4[facility]orial WtxfqixCOHDDYFXIT1063-58-22 15:27:92801Cnwgguwr FpbfiooOMICLFXAZU3826-62-26 15:27:008.5[facility]orial FapvazaSQPAPESGNU1697-96-27 15:27:00 Test Item Value Reference Range Interpretation Comments PT (test code = PT) 14.2 s 12.0-14.7 Memorial XcigqlkREQPDHZFSU2817-18-81 15:27:00 Test Item Value Reference Range Interpretation Comments PTT (test code = PTT) 28.8 s 22.9-35.8 [facility] AgzmwuaEHBXNOZVKX6986-99-75 15:27:00 Test Item Value Reference Range Interpretation Comments INR (test code = INR) 1.12 1 0.85-1.17 Memorial FpymvbcBPXAEYCEEW4609-62-59 15:27:0070.0[facility] HermannHEMATOLOGY 2018-12-31 15:27:0020.5[facility]orial SouyvbcOFVBTDLWKD9436-39-12 15:27:008.7Memorial EjmgmrvWWFJBJPVPU8110-58-71 15:27:000.6[facility]orial PwehentPZHZRWRCEQ3739-50-50 15:27:000.2[facility]orial TvtbhwxMHUBXPRHEG7312-82-79 15:27:006.6[facility] [place] RWOBVLFEWE4008-87-33 15:27:001.9[facility]orial UvqmclwOMTNOWFOMR7290-10-42 15:27:000.8 Memorial OlatqvdHCWAAJAPLR1408-38-20 15:27:000.1[facility] [place][H] Immunofixation Eletrophoresis Byngm8565-88-10 15:40:01 Test Item Value Reference Range Interpretation [...] concur with the resident'hannah herring on. CPT 76221-CDPqkxzbi mariana Signature Todd Lyons MD 0 08/27/18 14:55 PM [facility]] HEMOGLOBIN [id number] 13:54:01 Test Item Value Reference Range Interpretation Comments Hemoglobin A1c; Above High Threshold 9.0 % <=5.6 (test code = 4548-4) [facility]] VITAMIN D, 25-HYDROXY, LC/MS/[id number] 13:54:01 Test Item Value Reference Range Interpretation Comments Vitamin D, 25-OH, 33.8 ng/ml 30.0-100.0 Reference range is based Total (test code on recommen dations in the = Vitamin D, EndocrineSociet y Clinical 25-OH, Total) Practice Guide line (J Clin Endocrinol Sorly9720;96:19 11-1930) [facility]] FOLATE, [id number] 13:54:01 Test Item Value Reference Range Interpretation Comments Folate Level (test code = 2284-8) 30.4 ng/ml >=3.0 [facility]] TSH, 3RD GENERATION W/REFLEX TO FT4 2018-08-23 13:54:01 Test Item Value Reference Range Interpretation Comments TSH (test code = 58627-1) 0.422 {uIU/ml} 0.360-3.740 [facility]] VITAMIN [id number] 13:54:01 Test Item Value Reference Range Interpretation Comments Vitamin B12 Level; Below Low 108 pg/ml 254-1320 Threshold (test code = 2132-9) [facility]] T4, TOTAL (THYROXINE)2018-08-23 13:54:01 Test Item Value Reference Range Interpretation Comments Thyroxine (test code = 3026-2) 10.1 ug/dL 4.7-13.3 [facility]] RHEUMATOID [id number] 13:54:01 Test Item Value Reference Range Interpretation Comments Rheumatoid Factor Quantitative (test <10 0-20 code = 71637-5) [facility]] CMP [id number] 13:54:01 Test Item Value Reference Range Interpretation Comments Sodium Level 141 {mEq/l} 135-145 (test code = 2951-2) Potassium Level 4.5 {mEq/l} 3.5-5.1 (test code = 2823-3) Chloride Level 105 {mEq/l} 95-109 (test code = 2075-0) Carbon Dioxide; 12 {mEq/l} 24-32 Below Low Threshold (test code = 8-9) AGAP; Above High 28.5 {mEq/l} 10.0-20.0 Threshold (test code = 99608-7) Glucose Lvl; 168 mg/dl 70-99 Adult reference range Above High values reflect the Threshold (test clinical desiree delinesof the code = 2345-7) [employer]. Creatinine Lvl 1.30 mg/dl [...] by susanna myrick correction o rt. Faxresult [phone] cted from 1.0 g/dL [LOW] on 08/24/18 10:45: 16 CDT by Susanna King. Globulin (test 3.2 g/dl 2.7-4.2 instrument er ror. repeat code = 59124-0) ALB level at 08/24/2018 10:44 by Ugo Rodriguez at 08/24/2018 10:44 by susanna myrick correction repo rt. Faxresult [phone] cted from 5.7 g/dL [HI] o n 08/24/18 10:45:16 CDT by Susanna King. A/G Ratio (test 1.1 0.7-1.6 instrument e rror. repeat code = 1759-0) ALB level at 08/24/2018 10:44 by Jamilah Parknifer, J at 08/24/2018 10:44 by susanna myrick correction repo rt. Faxresult [phone] cted from 0.2 [LOW] on 10:45:16 CDT by Susanna King. Calcium Level 9.1 mg/dl 8.5-10.5 Total (test code = 64567-0) ALT (test code = 33 u/l 0-65 1743-4) AST (test code = 19 u/l 0-37 12130-9) Alk Phos (test 124 u/l 39-136 code = 1783-0) Bili Total (test 0.4 mg/dl 0.2-1.3 code = 1975-2) eGFR (test code = 38 The eGFR i s calculated 75878-8) {ML/MIN/1.7} using the CKD-E PI formula. In [...] be multiplied by t he estimated BMI. [facility]] IRON, [id number] 13:54:01 Test Item Value Reference Range Interpretation Comments Iron (test code = 2498-4) 47 ug/dL 30-160 [facility]] CREATINE KINASE, [id number] 13:54:01 Test Item Value Reference Range Interpretation Comments Creatine Kinase (test code = 2157-6) 61 u/l 12-191 [facility]] C-REACTIVE [id number] 13:54:01 Test Item Value Reference Range Interpretation Comments CRP (test code = CRP) <2.9 <=2.9 [facility]] SED RATE BY MODIFIED [id number] 13:54:01 Test Item Value Reference Range Interpretation Comments SED RATE BY MODIFIED Cancel Reason: QNS SHAD (test code = SED RATE BY MODIFIED WESTERGREN) [facility]] [id number] 13:54:01 Test Item Value Reference Range Interpretation Comments Segmented Neutrophils; Above High 80.2 % 45.0-75.0 Threshold (test code = 88535-6) Monocytes (test code = 75865-9) 7.5 % 2.0-12.0 Lymphocytes; Below Low Threshold 12.1 % 20.0-40.0 (test code = 93758-3) Eosinophils (test code = 08261-8) 0.2 % 0.0-4.0 Basophils (test code = 706-2) 0.0 % 0.0-1.0 Segs-Bands # (test code = 7.9 {K/CMM} 1.5-8.1 64368-3) Lymphocytes # (test code = 1.2 {K/CMM} 1.0-5.5 52861-9) Monocytes # (test code = 83685-9) 0.7 {K/CMM} 0.0-0.8 Eosinophils # (test code = 0.0 {K/CMM} 0.0-0.5 13234-7) Basophils # (test code = 88319-3) 0.0 {K/CMM} 0.0-0.2 [facility]] CBC (INCLUDES DIFF/PLT)2018-08-23 13:54:01 Test Item Value Reference Range Interpretation Comments WBC (test code = 6690-2) 9.8 {K/CMM} 3.7-10.4 RBC; Below Low Threshold (test 3.54 {M/CMM} 4.20-5.40 code = 789-8) Hgb; Below Low Threshold (test 10.9 g/dl 12.0-16.0 code = 718-7) Hct; Below Low Threshold (test 34.5 % 36.0-48.0 code = 20002-0) MCV (test code = 787-2) 97.5 fL 80.0-98.0 MCH (test code = 785-6) 30.7 pg 27.0-31.0 MCHC; Below Low Threshold (test 31.5 g/dl 32.0-36.0 code = 786-4) RDW; Above High Threshold (test 17.5 % 11.5-14.5 code = 788-0) Platelet (test code = 56367-4) 257 {K/CMM} 133-450 Mean Platelet Volume (test code 9.7 fL 7.4-10.4 = 50734-8) [facility]] SJOGRENS ANTIBODIES (SS-A,SS-B)2018-08-23 13:54:01 Test Item Value Reference Range Interpretation Comments SS-A (Ro) Antibody (test code = 5351-2) <0.2 <=0.9 SS-b (La) Antibody (test code = 5353-8) <0.2 <=0.9 [facility]] VITAMIN B1, WHOLE [id number] 13:54:01 Test Item Value Reference Range Interpretation Comments Vitamin B1 109.8 66.5-200.0 This test was d eveloped and its Level (test nmol/L performance code = characteristics determined by Vitamin B1 [facility]. It has not been Level) cleared orappro katerine by the Food and Drug Administration. Performed At: [facility] [address] [place], [place] [id number] ra Felipe PINEDA Ph:[phone] [facility][] Vitamin E [id number] 13:54:01 Test Item Value Reference Range Interpretation Comments Alpha-Tocoph 17.3 mg/L 9.0-29.0 This test was d eveloped and its anna (test performance code = characteristics determined by Alpha-Tocoph [facility]. It has not been cleared anna) orapproved by [facility] Food and Drug Administration. Gamma-Tocoph 1.8 mg/L 0.5-4.9 This test was d eveloped and its anna (test performance code = characteristics determined by Gamma-Tocoph [facility]. It has not been cleared anna) orapproved by [facility] Food and Drug Administration. Reference intervals for a lpha and gamma-tocophero ldetermined from National Health and Nutrition ExaminationSurv , 4518-2997. Individuals wit h alpha-tocophero l levelsless than 5.0 mg/L are co nsidered vitamin E deficient.Per formed At: [facility] [address] [id number] ra Felipe PINEDA Ph:[phone] [facility]] VITAMIN [id number] 13:54:01 Test Item Value Reference Range Interpretation Comments Vitamin B6 11.2 {UG/L} 2.0-32.8 This test was d eveloped and its Level (test performance code = characteristics determined by Vitamin B6 [facility]. It has not been Level) cleared orappro katerine by the Food and Drug Administration. Performed At: [facility] [id number] ra Felipe PINEDA Ph:[phone] [facility]] Zinc [id number] 13:54:01 Test Item Value Reference Range Interpretation Comments Zinc Level 64 ug/dL 56-134 This test was d eveloped and its (test code = performance Zinc Level) characteristics determined by [facility]. It has not been cleared orapproved by [facility] Food and Drug Administration. 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 [facility][H] Immunofixation Ohnakobcjcgrfq6876-20-59 13:54:01 Test Item Value Reference Interpretation Comments [...] cur with the resident's inte rpretation. CPT 28899-H CElectronic Signature Todd Lyons MD 08/27/18 14: 43 PM [facility]] METHYLMALONIC [id number] 13:54:01 Test Item Value Reference Interpretation Comments Range Methylmalonic 7915 nmol/L 0-378 Acid Quantitative (test code = Methylmalonic Acid Quantitative) U Org Acid Comment This test was d eveloped and Disclaimer (Horner) its perform ance (test code = U characteristi csdetermined by Org Acid [facility]. It has not been Disclaimer (Horner)) cleared or approved by the Food and Drug Administration. Performed At: [facility] [place], [place] [id number] ra Felipe PINEDA Ph:[phone] e presence of metabolites in physiological fluids [...] id, oxalic acid, glycolic acid,glycerol and others. [facility][H] Paraneoplastic Autoantibody Evaluation 2018-08-23 13:54:01 Test Item Value Reference Interpretation Comments Range IRENE-1 (test code Negative <1:240 = IRENE-1) IRENE-2 (test code Negative <1:240 ---------ADDITIONA = IRENE-2) L INFORMATION---- --This test was developed and its perform ance characteristics determined by [facility] in a manner consistent with CLIArequirement s. This test has not been cl eared or approved bythe U.S. Food and Drug Administra tion. IRENE-3 (test code Negative <1:240 ---------ADDITIONA = IRENE-3) L INFORMATION---- --This test was developed and its perform ance characteristics determined by [facility] in a manner consistent with CLIArequirement s. This test has not been cl eared or approved bythe U.S. Food and Drug Administra tion. AGNA-1 (test code Negative <1:240 ---------ADDITIONA = AGNA-1) L INFORMATION---- --This test was developed and its perform ance characteristics determined by [facility] in a manner consistent with CLIArequirement s. This test has not been cl eared or approved bythe U.S. Food and Drug Administra tion. JIGSAWYER-1 (test code = Negative <1:240 --------- ADDITIONA JIGSAWYER-1) L INFORMATION---- --This test was developed and its perform ance characteristics determined by [facility] in a manner consistent with CLIArequirement s. This test has not been cl eared or approved bythe U.S. Food and Drug Administra tion. JIGSAWYER-2 (test code = Negative <1:240 --------- ADDITIONA JIGSAWYER-2) L INFORMATION---- --This test was developed and its perform ance characteristics determined by [facility] in a manner consistent with CLIArequirement s. This test has not been cl eared or approved bythe U.S. Food and Drug Administra tion. JIGSAWYER-3 (test code = Negative <1:240 --------- ADDITIONA JIGSAWYER-3) L INFORMATION---- --This test was developed and its perform ance characteristics determined by [facility] in a manner consistent with CLIArequirement s. This test has not been cl eared or approved bythe U.S. Food and Drug Administra tion. Amphiphysin Ab Negative <1:240 ------ADDITIONA (test code = L Amphiphysin Ab) INFORMATION- --This test was developed and its perform ance characteristics determined by [facility] in a manner consistent with CLIArequirement s. This test has not been cl eared or approved bythe U.S. Food and Drug Administra tion. CRMP-5 IgG (test Negative <1:240 --------ADDITIONA code = CRMP-5 IgG) L INFORMATION---- --This test was developed and its perform ance characteristics determined by [facility] in a manner consistent with CLIArequirement s. This test has not been cl eared or approved bythe U.S. Food and Drug Administra tion. Striated Muscle Ab Negative <1:120 --------- ADDITIONA (test code = L Striated Muscle INFORMATION- Ab) --This test was developed and its perform ance characteristics determined by [facility] in a manner consistent with CLIArequirement s. This test has not been cl eared or approved bythe U.S. Food and Drug Administra tion. Calcium Channel Ab 0.00 nmol/L <=0.02 --------- ADDITIONA P/Q-Type (test L code = Calcium INFORMATION-- Channel Ab --This test was developed P/Q-Type) and its perform ance characteristics determined by [facility] in a manner consistent with CLIArequirement s. This test has not been cl eared or approved bythe U.S. Food and Drug Administra tion. Diagnosis PNH 0.00 nmol/L <=0.03 -----ADDITIONA (test code = L Diagnosis PNH) INFORMATION-- --This test was developed and its perform ance characteristics determined by [facility] in a manner consistent with CLIArequirement s. This test has not been cl eared or approved bythe .S. Food and Drug Administra tion. ACHr Binding Ab 0.00 nmol/L <=0.02 -------ADDITIONA (test code = ACHr L Binding Ab) INFORMATION---- --This test was developed and its perform ance characteristics determined by [facility] in a manner consistent with CLIArequirement s. This test has not been cl eared or approved bythe U.S. Food and Drug Administra tion. AChR Ganglionic 0.00 nmol/L <=0.02 -------ADDITIONA Neuronal Ab (test L code = AChR INFORMATION---- Ganglionic --This test was developed Neuronal Ab) and its perform ance characteristics determined by [facility] in a manner consistent with CLIArequirement s. This test has not been cl eared or approved bythe U.S. Food and Drug Administra tion. Neuronal (V-G) 0.00 nmol/L <=0.02 ------ADDITIONA K+Channel Ab (test L code = Neuronal INFORMATION- (V-G) K+Channel --This test was developed Ab) and its perform ance characteristics determined by [facility] in a manner consistent with CLIArequirement s. This test has not been cl eared or approved bythe U.S. Food and Drug Administration. Performed At: [facility] [address] [place], [place] [id number] m G Ph:[phone] Paraneoplastic Ab Comment No informa tive Interp [...] and its perfor azucena characteristics determined by [facility] in a manner consistent with CLIArequirement s. This test has not been cl eared or approved bythe U.S. Food and Drug Administra tion. [facility]] [id number] 13:54:01 Test Item Value Reference Range Interpretation Comments Copper Level (test code Cancel Reason: Other = Copper Level) (see comments) [facility]iciansCARDIAC [id number] 15:30:38931Fuuyijfc HermannCHEM GBOOT6260-58-72 15:30:002.8[facility] HermannCHEM VUGNS4801-86-05 15:30:002.3[facility] YmeehpjZCJMLVDXVBXV8481-82-04 15:30:008.1[facility] [place] QGEEOAFPZAYH3209-63-14 15:30:0045[facility] PzgurbsKJMAWFRCDEIZ2614-55-27 15:30:00 8.2[facility] XlcgrgbPSEZOZZVTGRT9261-61-77 15:30:0029[facility] HermannELECTROLYTES 2018-01-16 15:30:80495Rebxjrtk OtscxqdOBUZLZTLDGYT7420-42-87 15:30:003.1[facility] ZohymevNBRCUNURBEJV6855-22-50 15:30:83198Jbsvtsiz JyuttldBOFLICDPQEZE5573-23-70 15:30:08129Gsqfkvzb LdmavhrWEXRAWZMBXFM4522-88-51 15:30:001.14[facility] TZKDPMKYPLAZ3804-26-07 15:30:0033[facility] HtbjkpwOZHERFXPWU0560-78-07 15:30:00 Test Item Value Reference Range Interpretation Comments INR (test code = INR) 1.09 1 0.85-1.17 [facility] VklxvedEKQHSHTVMY8147-48-60 15:30:00 Test Item Value Reference Range Interpretation Comments PT (test code = PT) 14.1 s 12.0-14.7 [facility] WgrmgilVVEQUHRGDM6090-69-06 15:30:00 Test Item Value Reference Range Interpretation Comments PTT (test code = PTT) 25.6 s 22.9-35.8 [facility] GobfgskAAPYVXVICV9065-98-80 15:30:89798Idujttmu HermannHEMATOLOGY 2018-01-16 15:30:009.1[facility] KhijuniLUDALMRCPD7241-88-67 15:30:0033.2[facility] XyoervhGRHRIHCBIO3025-54-87 15:30:0014.6[facility] ZwvfbkoJNQQDOVCZJ9780-04-69 15:30:006.5[facility] AaqxsvyCAVZMEDXFS4290-20-00 15:30:003.98[facility] [place] FTVXYIKJUV7116-15-26 15:30:0012.3[facility] FqkngulMSLCDZLXWV1736-72-58 15:30:00 92.9[facility] WoqzbrhOWKPWOWHWW2788-11-82 15:30:0037.0[facility] HermannHEMATOLOGY 2018-01-16 15:30:00 Test Item Value Reference Range Interpretation Comments MCH (test code = MCH) 30.8 pg 27.0-31.0 [facility] VfdoiwiYIBGEOPGUO4897-62-58 15:30:001.5[facility] HermannHEMATOLOGY 2018-01-16 15:30:0062.9[facility] NwyazlwNDFNIANNPA3612-80-47 15:30:0023.2[facility] QdgknxbSVFOXEBNZG0104-11-19 15:30:004.1[facility] PcpotjoGDCRHPIEVV1153-99-95 15:30:000.8[facility] IcovmpxWPVJWCXZTL1351-44-81 15:30:000.5[facility] PGXVOCWQWZ9883-09-78 15:30:000.1[facility] ZxasbqrKCEMVBBXTB3939-63-01 15:30:00 12.0[facility] MvqxxwcJVBNHQYFYD7702-05-74 15:30:001.4[facility] HermannBLOOD BANK HMVVSGH1545-47-12 10:48:00Negative (06/26/14 5:48 AM)[facility] HermannCHEM PANEL 2014-06-26 10:48:002.0[facility] AtxzfcuOXYTJAOBJCBA1480-33-59 10:48:0013.8 [facility] GvzhvvyVQZDDARTAKLK9061-68-20 10:48:0070[facility] HermannELECTROLYTES 2014-06-26 10:48:008.8[facility] NhsvsmfCNPLPBGEEFLU6545-82-86 10:48:11710Etbawotu ZjkseobULQSUYDYYMCX1915-71-34 10:48:0026[facility] BmscqupAOHFNSRPBAUW2323-13-00 10:48:003.8[facility] QvsmksePJHPHEJSZSFL3844-43-58 10:48:29375Giffpzza [place] QVPXJFHWVCSP2025-32-90 10:48:000.8[facility] KhgrtkcWTVZAMWQZTVN7961-46-23 10:48:0016[facility] GowgzogJFCNVYYEYJOD6427-44-18 10:48:22362Kzazeclj [place] QFOSJRTVHT2857-31-33 10:48:001.7[facility] OfknzvwSUVWQOCTCI5042-08-36 10:48:000.5 [facility] KqwgilfIHOPYYMNEP5130-95-79 10:48:0020.0[facility] HermannHEMATOLOGY 2014-06-26 10:48:0011.3[facility] XhshwhoFDHGRGWNQR4767-89-36 10:48:0066.5[facility] OscjfhbHFAEOBFBVJ5062-80-35 10:48:000.1[facility] MvivovpUZPBLJETDD8212-49-65 10:48:004.7[facility] ZgoxqyoPWQSMICHEK5988-09-24 10:48:001.4[facility] [place] WBAEXOPKZI8177-64-12 10:48:000.8[facility] ZxocuryVMJWPXMVXY8912-64-30 10:48:00 1.08[facility] RzvknxtIROLUYKOLV2446-08-52 10:48:00 Test Item Value Reference Range Interpretation Comments PT (test code = PT) 14.1 s 12.0-14.7 [facility] AdkxmqzNNNTXPMMGE2351-82-74 10:48:00 Test Item Value Reference Range Interpretation Comments PTT (test code = PTT) 30.5 s 22.9-35.8 [facility] HvqxfxtWFZSNBUXEE9890-01-04 10:48:009.1[facility] HermannHEMATOLOGY 2014-06-26 10:48:00 Test Item Value Reference Range Interpretation Comments MCH (test code = MCH) 29.5 pg 27.0-31.0 [facility] MloodprYXUZTEWIDT7149-33-60 10:48:0089.3[facility] HermannHEMATOLOGY 2014-06-26 10:48:86828Fwwdfsba GwmxreiIVMSPLUGOY3268-89-80 10:48:0015.5[facility] TjtlcryDPUYWWDZJO7015-74-21 10:48:0033.0[facility] AgstfdaXFVJQTEQQT6172-90-22 10:48:007.1[facility] XnlqzmmMSSYVFPNMB9399-55-29 10:48:0012.7[facility] EVWPKWAKLN0169-87-83 10:48:004.30[facility] TkchixuPNJADRYYZW5163-91-46 10:48:00 38.4[facility] GytuaezOHFCNI2097-28-19 10:48:006.12[facility] HermannLIPIDS 2014-06-26 10:48:0077[facility] FocdkpvRWOTPB9073-17-32 10:48:0051[facility] [place] VFHFWS4640-61-94 10:48:0025[facility] QlrijrlFXURLU4229-64-27 10:48:46082Ahuekhak YwcqoxrBWSYZF8662-20-09 10:48:04649Tzrcvgch Ceasar
[2019-10-11] MEDS ORDERED: ONDANSETRON 4 MG/2 ML VIAL ONE ×3 (15:13→18:46)
[2019-10-11] MEDS ORDERED: MORPHINE 2 MG/ML SYR ONE (15:13)
[2019-10-11] MEDS ORDERED: NA CHLORIDE 0.9% 500 ML ONE (15:13)
[2019-10-11 15:30] LABS: Absolute Lymphocytes (CBC) 0.9 K/uL (0.7-4.9); Basophils % 0.3 % (0-1.3); Hematocrit 43.1 % (36.0-45.0); Lymphocytes % 5.9 % (15.3-44.8); MPV 8.8 fL (7.6-11.3); RBC Red Blood Cell Count 4.95 M/uL (3.86-4.86)
[2019-10-11 15:41] LABS: Albumin 3.1 g/dL (3.4-5.0); Bilirubin Direct 0.2 mg/dL (0-0.2); Bilirubin Total 0.8 mg/dL (0.2-1.0); Potassium 4.1 mmol/L (3.5-5.1)
--- NOTE | 2019-10-11 16:33 | RAD REPORT ---
EXAM DESCRIPTION: CTAbdomen Pelvis W Contrast - 10/11/2019 4:19 pm CLINICAL HISTORY: Abdominal pain. ABD PAIN COMPARISON: CT ABD PELVIS W CONTRAST dated 11/10/2012; Cholangiogram dated 10/09/2019; Abdomen Pelvi s Wo Contrast dated 10/07/2019; Abdomen Exam Complete dated 10/08/2019 TECHNIQUE: Biphasic CT imaging of the abdomen and pelvis was performed with 100 ml non-ionic IV cont rast. All CT scans are performed using dose optimization technique as appropriate and may include automated exposure control or mA/KV adjustment according to patient size. FINDINGS: A mild chronic opacity is present in the lingula.Trace bilateral pleural fluid. The liver demonstrates no aggressive mass or biliary dilatation. The spleen, pancreas, adrenal glands are within normal limits. Small calculi are present in the upper pole right kidney. No hydronephrosi s. There is significant distention of the colon with fluid noted measuring up to 6.5 cm in transverse di mension. The sigmoid colon demonstrates fecal retention with multiple diverticula present. Mild free fluid is seen in the abdomen and pelvis. The appendix is normal. Small fat containing umbilical herni a. No evidence of significant lymphadenopathy. Small air bubble is present in the urinary bladder. Anterior bladder wall is thickened. Moderate lumbar degenerative changes. IMPRESSION: Sigmoid diverticulosis coli is present with stool retained within the sigmoid colon. Ups tream colon appears distended measuring up to 6.5 cm and fluid-filled suggesting a component of mecha nical colonic obstruction. Anterior urinary bladder wall thickening wit small amount of air in the urinary bladder suggesting cy stitis. Mild free fluid is seen in the pelvis.
--- NOTE | 2019-10-11 16:45 | ER ---
Nurse's Notes [facility] Name: Dianne Juárez Age: 84 yrs Sex: Female : 1935 Arrival Date: 10/11/2019 Time: 14:00 Bed 19 Private MD: Diagnosis: Small Bowel Obstruction;Abdominal and pelvic pain;Vomiting Presentation: 10/10 14:19 Chief complaint: Patient's son or daughter states: adult child states: "she was jd3 admitted on Monday and was released Monday. she was having nausea and vomiting with abdominal pain them as well as constipation. she used the bathroom finally and she got better. well today she got worse and is having stomach pain with nausea and vomiting again. she was tested for COVID here and was told she was negative.". Coronavirus screen: The client reports previous COVID testing was negative. Date of collection: October 07, 2019. Ebola Screen: Patient negative for fever greater than or equal to 101.5 degrees Fahrenheit, and additional compatible Ebola Virus Disease symptoms. Initial Sepsis Screen: Does the patient meet any 2 criteria? No. Patient's initial sepsis screen is negative. Does the patient have a suspected source of infection? No. Patient's initial sepsis screen is negative. Risk Assessment: Do you want to hurt yourself or someone else? Patient reports no desire to harm self or others. Onset of symptoms was October 11, 2019. 14:19 Method Of Arrival: Wheelchair jd3 14:19 Acuity: DOMINIQUE 3 jd3 Historical: - Allergies: 14:25 Adhesives; jd3 14:25 Sulfa (Sulfonamide Antibiotics); jd3 - Home Meds: 14:25 aspirin 81 mg Oral chew 1 tab once daily [Active]; Eliquis 5 mg Oral tab 1 tab 2 times jd3 per day [Active]; famotidine 20 mg Oral tab 1 tab once daily [Active]; fiasp insulin [Active]; glimepiride 1 mg Oral tab twice daily [Active]; lansoprazole 30 mg Oral cpDR 1 cap once daily [Active]; Lantus 100 unit/mL Sub-Q soln daily [Active]; levothyroxine 150 mcg tab 1 tab once daily [Active]; metoprolol tartrate 25 mg Oral tab 1 tab 2 times per day [Active]; Myrbetriq 50 mg Oral Tb24 1 tab once daily [Active]; naproxen 500 mg Oral tab 1 tab every 12 hours [Active]; ozempic insulin [Active]; rosuvastatin 10 mg Oral tab 1 tab once daily [Active]; simvastatin 80 mg Oral tab daily [Active]; Tresiba FlexTouch U-100 100 unit/mL (3 mL) subcutaneous inpn 20 unit [Active]; - PMHx: 14:25 Atrial Fib; Diabetes - NIDDM; Hyperlipidemia; Hypertension; Hypothyroidism; irregular jd3 heart beat; - PSHx: 14:25 Cholecystectomy; Lithotripsy; Carpal Tunnel Repair; Knee surgery; BACK SURGERY; jd3 - Immunization history:: Adult Immunizations up to date. - Social history:: Smoking status: Patient denies any tobacco usage or history of. Screenin:23 Abuse screen: Denies threats or abuse. Denies injuries from another. Nutritional ph screening: No deficits noted. Tuberculosis screening: No symptoms or risk factors identified. Fall Risk None identified. Assessment: 15:22 General: Appears in no apparent distress. comfortable, obese, well groomed, Behavior is ph calm, cooperative, appropriate for age, quiet, Denies fever, chills. Pain: Complains of pain in abdomen. Neuro: Level of Consciousness is awake, alert, obeys commands, Oriented to person, place, time, situation. Cardiovascular: Capillary refill < 3 seconds in bilateral Patient's skin is warm and dry. Respiratory: Airway is patent Respiratory effort is even, unlabored, Respiratory pattern is regular, symmetrical. GI: Abdomen is round distended, Reports lower abdominal pain, upper abdominal pain, constipation, nausea, vomiting. Derm: Skin is intact, is healthy with good turgor, Skin is pink, warm \\T\\ dry. Musculoskeletal: Circulation, motion, and sensation intact. Range of motion: intact in all extremities. 15:31 Reassessment: Patient appears in no apparent distress at this time. Dr Boyce at bedside. 16:24 Reassessment: Patient appears in no apparent distress at this time. Patient and/or ph family updated on plan of care and expected duration. Pain level reassessed. Patient is alert, oriented x 3, equal unlabored respirations, skin warm/dry/pink. Pt returned from CT, awaiting results. 17:14 Reassessment: Patient and/or family updated on plan of care and expected duration. Pain ph level reassessed. Patient is alert, oriented x 3, equal unlabored respirations, skin warm/dry/pink. Vital Signs: 14:25 BP 125 / 94; Pulse 100; Resp 20 S; Temp 98.0(O); Pulse Ox 98.0% on R/A; Weight 86.18 kg jd3 (R); Height 5 ft. 3 in. (160.02 cm) (R); Pain 10/10; 15:31 BP 133 / 91; Pulse 95; Resp 18; Pulse Ox 97% on R/A; ph 16:30 BP 131 / 88; Pulse 101; Resp 18; Pulse Ox 99% on R/A; ph 17:30 BP 132 / 86; Pulse 100; Resp 16; Temp 97.5; Pulse Ox 97% on R/A; ph 14:25 Body Mass Index 33.66 (86.18 kg, 160.02 cm) jd3 ED Course: 14:00 Patient arrived in ED. ds1 14:18 Izzy Spears, RN is Primary Nurse. ph 14:22 Triage completed. jd3 14:23 Arm band placed on Patient placed in an exam room. ph 14:24 Patient has correct armband on for positive identification. Bed in low position. Call ph light in reach. Side rails up X2. Pulse ox on. NIBP on. Door closed. Noise minimized. Warm blanket given. 14:47 Leif West MD is Attending Physician. kdr 15:09 Radiology exam delayed due to IV insertion attempt and/or patient not having vm2 appropriate IV at this time. 15:12 Initial lab(s) drawn, by wa, sent to lab. Inserted saline lock: 20 gauge in right dh3 antecubital area, using aseptic technique. Blood collected. 15:15 Inserted saline lock: 22 gauge in right antecubital area, using aseptic technique. dh3 Blood collected. 16:19 CT Abd/Pelvis - IV Contrast Only In Process Unspecified. EDMS 16:44 Louie Boyce DO is Hospitalizing Provider. kdr 18:14 No provider procedures requiring assistance completed. Patient admitted, IV remains in ph place. Administered Medications: 15:21 Drug: NS 0.9% 500 ml Route: IV; Rate: bolus; Site: right antecubital; ph 17:40 Follow up: Response: No adverse reaction; IV Status: Completed infusion; IV Intake: ph 500ml 15:21 Drug: morphine 2 mg Route: IVP; Site: right antecubital; ph 16:23 Follow up: Response: No adverse reaction ph 15:21 Drug: Zofran (Ondansetron) 4 mg Route: IVP; Site: right antecubital; ph 16:24 Follow up: Response: No adverse reaction; Nausea is decreased; Vomiting decreased ph 18:10 Drug: Zofran (Ondansetron) 4 mg Route: IVP; Site: right antecubital; ph 18:13 Follow up: Response: No adverse reaction ph Intake: 17:40 IV: 500ml; Total: 500ml. ph Outcome: 16:45 Decision to Hospitalize by Provider. kdr 18:14 Admitted to Med/surg accompanied by tech, family with patient, via stretcher, room 224, ph with chart. 18:14 Condition: stable 18:14 Instructed on the need for admit. 18:15 Patient left the ED. ph Signatures: Dispatcher [employer] EDLeif Noriega MD MD [facility] Karol Reyes ds1 Izzy Spears RN RN Desi Vallejo 2 Fidelia Espinoza 3 Yariel Villar RN RN jd3
--- NOTE | 2019-10-11 16:45 | EDPHYS ---
Physician Documentation [facility] Name: Dianne Juárez Age: 84 yrs Sex: Female : 1935 Arrival Date: 10/11/2019 Time: 14:00 Bed 19 Private MD: ED Physician Leif West HPI: 10/10 17:11 This 84 yrs old Female presents to ER via Wheelchair with complaints of Nausea.kdr 17:11 The patient presents to the emergency department with nausea, vomiting, that is kdr intermittent. Onset: The symptoms/episode began/occurred gradually, yesterday. Possible causes: flare up of bowel problem, SBO. The symptoms are aggravated by nothing. The symptoms are alleviated by nothing. Associated signs and symptoms: Pertinent positives: abdominal pain, nausea, vomiting, Pertinent negatives: diarrhea, fever, GI bleeding, hematuria. Severity of symptoms: At their worst the symptoms were mild moderate in the emergency department the symptoms are unchanged. The patient has not experienced similar symptoms in the past. The patient has been recently been admitted at [facility], was discharged yesterday. Historical: - Allergies: 14:25 Adhesives; jd3 14:25 Sulfa (Sulfonamide Antibiotics); jd3 - Home Meds: 14:25 aspirin 81 mg Oral chew 1 tab once daily [Active]; Eliquis 5 mg Oral tab 1 tab 2 times jd3 per day [Active]; famotidine 20 mg Oral tab 1 tab once daily [Active]; fiasp insulin [Active]; glimepiride 1 mg Oral tab twice daily [Active]; lansoprazole 30 mg Oral cpDR 1 cap once daily [Active]; Lantus 100 unit/mL Sub-Q soln daily [Active]; levothyroxine 150 mcg tab 1 tab once daily [Active]; metoprolol tartrate 25 mg Oral tab 1 tab 2 times per day [Active]; Myrbetriq 50 mg Oral Tb24 1 tab once daily [Active]; naproxen 500 mg Oral tab 1 tab every 12 hours [Active]; ozempic insulin [Active]; rosuvastatin 10 mg Oral tab 1 tab once daily [Active]; simvastatin 80 mg Oral tab daily [Active]; Tresiba FlexTouch U-100 100 unit/mL (3 mL) subcutaneous inpn 20 unit [Active]; - PMHx: 14:25 Atrial Fib; Diabetes - NIDDM; Hyperlipidemia; Hypertension; Hypothyroidism; irregular jd3 heart beat; - PSHx: 14:25 Cholecystectomy; Lithotripsy; Carpal Tunnel Repair; Knee surgery; BACK SURGERY; jd3 - Immunization history:: Adult Immunizations up to date. - Social history:: Smoking status: Patient denies any tobacco usage or history of. ROS: 17:11 Constitutional: Negative for fever, chills, and weight loss, Eyes: Negative for injury, kdr pain, redness, and discharge, Neck: Negative for injury, pain, and swelling, Cardiovascular: Negative for chest pain, palpitations, and edema, Respiratory: Negative for shortness of breath, cough, wheezing, and pleuritic chest pain, Back: Negative for injury and pain, : Negative for injury, bleeding, discharge, and swelling, MS/Extremity: Negative for injury and deformity, Skin: Negative for injury, rash, and discoloration, Neuro: Negative for headache, weakness, numbness, tingling, and seizure activity. Psych: Negative for depression, anxiety, suicide ideation, homicidal ideation, and hallucinations, Allergy/Immunology: Negative for hives, rash, and allergies, Endocrine: Negative for neck swelling, polydipsia, polyuria, polyphagia, and marked weight changes, Hematologic/Lymphatic: Negative for swollen nodes, abnormal bleeding, and unusual bruising. 17:11 Abdomen/GI: Positive for abdominal pain, nausea and vomiting, abdominal cramps, abdominal distension, Negative for diarrhea, black/tarry stool, rectal pain, bowel incontinence, flatulence. Exam: 17:11 Constitutional: This is a well developed, well nourished patient who is awake, alert, kdr and in no acute distress. Head/Face: Normocephalic, atraumatic. Eyes: Pupils equal round and reactive to light, extra-ocular motions intact. Lids and lashes normal. Conjunctiva and sclera are non-icteric and not injected. Cornea within normal limits. Periorbital areas with no swelling, redness, or edema. Neck: Trachea midline, no thyromegaly or masses palpated, and no cervical lymphadenopathy. Supple, full range of motion without nuchal rigidity, or vertebral point tenderness. No Meningismus. Chest/axilla: Normal chest wall appearance and motion. Nontender with no deformity. No lesions are appreciated. Cardiovascular: Regular rate and rhythm with a normal S1 and S2. No gallops, murmurs, or rubs. Normal PMI, no JVD. No pulse deficits. Respiratory: Lungs have equal breath sounds bilaterally, clear to auscultation and percussion. No rales, rhonchi or wheezes noted. No increased work of breathing, no retractions or nasal flaring. Back: No spinal tenderness. No costovertebral tenderness. Full range of motion. Skin: Warm, dry with normal turgor. Normal color with no rashes, no lesions, and no evidence of cellulitis. MS/ Extremity: Pulses equal, no cyanosis. Neurovascular intact. Full, normal range of motion. Neuro: Awake and alert, GCS 15, oriented to person, place, time, and situation. Cranial nerves II-XII grossly intact. Motor strength 5/5 in all extremities. Sensory grossly intact. Cerebellar exam normal. Normal gait. Psych: Awake, alert, with orientation to person, place and time. Behavior, mood, and affect are within normal limits. 17:11 Abdomen/GI: Inspection: distension, that is moderate, obese Bowel sounds: high pitched, Palpation: mild abdominal tenderness, voluntary guarding, involuntary guarding. Vital Signs: 14:25 BP 125 / 94; Pulse 100; Resp 20 S; Temp 98.0(O); Pulse Ox 98.0% on R/A; Weight 86.18 kg jd3 (R); Height 5 ft. 3 in. (160.02 cm) (R); Pain 10/10; 15:31 BP 133 / 91; Pulse 95; Resp 18; Pulse Ox 97% on R/A; ph 16:30 BP 131 / 88; Pulse 101; Resp 18; Pulse Ox 99% on R/A; ph 17:30 BP 132 / 86; Pulse 100; Resp 16; Temp 97.5; Pulse Ox 97% on R/A; ph 14:25 Body Mass Index 33.66 (86.18 kg, 160.02 cm) jd3 MDM: 16:45 Patient medically screened. kdr 17:11 Data reviewed: vital signs, nurses notes, lab test result(s), radiologic studies, CT kdr scan. Counseling: I had a detailed discussion with the patient and/or guardian regarding: the historical points, exam findings, and any diagnostic results supporting the discharge/admit diagnosis, lab results, radiology results, the need for further work-up and treatment in the hospital. 10/10 15:01 Order name: Basic Metabolic Panel [facility] 10/10 15:01 Order name: CBC with Diff; Complete Time: 17:15 kdr 10/10 15:01 Order name: Hepatic Function; Complete Time: 17:15 [facility] 10/10 15:01 Order name: Lipase; Complete Time: 17:15 [facility] 10/10 15:01 Order name: CT Abd/Pelvis - IV Contrast Only; Complete Time: 17:15 kdr 10/10 15:02 Order name: Basic Metabolic Panel; Complete Time: 17:15 EDVT 10/10 15:01 Order name: IV Saline Lock; Complete Time: 15:20 [facility] 10/10 15:01 Order name: Labs collected and sent; Complete Time: 15:20 kdr Administered Medications: 15:21 Drug: NS 0.9% 500 ml Route: IV; Rate: bolus; Site: right antecubital; ph 17:40 Follow up: Response: No adverse reaction; IV Status: Completed infusion; IV Intake: ph 500ml 15:21 Drug: morphine 2 mg Route: IVP; Site: right antecubital; ph 16:23 Follow up: Response: No adverse reaction ph 15:21 Drug: Zofran (Ondansetron) 4 mg Route: IVP; Site: right antecubital; ph 16:24 Follow up: Response: No adverse reaction; Nausea is decreased; Vomiting decreased ph 18:10 Drug: Zofran (Ondansetron) 4 mg Route: IVP; Site: right antecubital; ph 18:13 Follow up: Response: No adverse reaction ph Disposition: 10/11/19 16:45 Hospitalization ordered by Louie Boyce for Inpatient Admission. Preliminary diagnosis are Small Bowel Obstruction, Abdominal and pelvic pain, Vomiting. - Bed requested for Telemetry/MedSurg (Inpatient). - Status is Inpatient Admission. ph - Condition is Fair. - Problem is new. - Symptoms have improved. Signatures: Dispatcher [employer] EDSoraya Sarah ph D, RN RN dw Rittger, Kevin, MD MD kdr Hall, Patricia, RN RNavies, Jonathon, RN RN jd3 Corrections: (The following items were deleted from the chart) 17:06 16:45 Hospitalization Ordered by Louie Boyce DO for Inpatient Admission. Preliminary dw diagnosis is Small Bowel Obstruction; Abdominal and pelvic pain; Vomiting. Bed requested for Telemetry/MedSurg (Inpatient). Status is Inpatient Admission. Condition is Fair. Problem is new. Symptoms have improved. kdr 18:15 17:06 10/11/2019 16:45 Hospitalization Ordered by Louie Boyce DO for Inpatient ph Admission. Preliminary diagnosis is Small Bowel Obstruction; Abdominal and pelvic pain; Vomiting. Bed requested for Telemetry/MedSurg (Inpatient). Status is Inpatient Admission. Condition is Fair. Problem is new. Symptoms have improved. dw
--- NOTE | 2019-10-11 16:58 | P.HP ---
Certification for Inpatient Patient admitted to: Observation With expected LOS: <2 Midnights Patient will require the following post-hospital care: None Practitioner: I am a practitioner with admitting privileges, knowledge of patient current condition, hospital course, and medical plan of care. Services: Services provided to patient in accordance with Admission requirements found in Title 42 Section 412.3 of the Code of Federal Regulations Patient History Date of Service: 10/11/19 Primary Care Provider: Dr. Rudd Reason for admission: Nausea, vomiting, constipation, abdominal pain History of Present Illness: 84-year-old female with multiple medical problems including chronic diastolic CHF, chronic renal failure stage 3, chronic atrial fibrillation not on chronic anti coagulation therapy, GERD, hyperlipidemia, diabetes mellitus type 2 insulin dependent, chronic pain, hypothyroidism and depression. Patient recently hospitalized on 10/07/2019 through 10/09/2019 for sepsis related to left lower lobe pneumonia. Since discharge patient has done well. She was given Augmentin for coverage. She had reported some constipation over the past week. Today she had increasing nausea and vomiting. She was given an enema at home with very mild improvement in her constipation. She started to have some abdominal pain mainly to the lower region. Increased nausea and vomiting and distention noted. No mention of fever, chills. No shortness of breath noted. She came to the ER for further evaluation. In the ER patient evaluated. Vital signs stable. Lab showed white count 14.9, hemoglobin 13.8. Platelet count of 222. Sodium 141, potassium 4.1, creatinine 1.1 with a GFR 47. Glucose 169. AST normal 35. ALT normal. Alk-phos 120. Lipase normal. Abdominal CT scan showed sigmoid diverticulosis coli present with stool retained in the sigmoid colon. Upstream: Appear distended measuring 6.5 cm with fluid filled component. Probable mechanical colonic obstruction due to increase stool. Patient was admitted for further evaluation. When I saw the patient ER, she appeared more comfortable. Patient did not appear septic at this time. Vital signs stable Allergies Sulfa (Sulfonamide Antibiotics) Allergy (Verified 07/19/18 19:40) Rash adhesive tape Adverse Reaction (Verified 07/19/18 19:40) Rash Home medications list reviewed: Yes Home Medications: Aspirin [Aspirin EC 81 MG] 81 mg PO DAILY 04/09/18 Insulin Aspart (Niacinamide) [Fiasp 100 Unit/ml Flextouch] 5 unit SQ TID 10/09/19 Insulin Degludec [Tresiba Flextouch U-100] 15 unit SQ DAILY #1 librado 10/09/19 Levothyroxine Sodium [Synthroid] 125 mcg PO DAILY 10/09/19 Metoprolol Tartrate 25 mg PO BID #60 10/09/19 Mirabegron [Myrbetriq] 1 tab PO DAILY 10/09/19 PARoxetine HCL [Paxil*] 10 mg PO DAILY 10/09/19 Rosuvastatin [Crestor*] 1 tab PO DAILY 10/09/19 - Past Medical/Surgical History Diabetic: Yes -: Diabetes mellitus type 2 insulin dependent -: HTN -: Hypothyroidism -: Hyperlipidemia -: Chronic atrial fibrillation -: Hypothyroidism -: Hyperlipidemia -: Depression with anxiety -: Chronic pain -: GERD -: Cholecystectomy -: Back surgery -: Left Knee Replacement -: Kidney Stone Removal -: Cataracts sx -: heart valve surgery Psychosocial/ Personal History: Lives at home with daughter - Family History Mother -: Hypertension, Diabetes, Cancer Notes: Uterine CA Father -: Hypertension, Diabetes - Social History Smoking Status: Never smoker Alcohol use: No CD- Drugs: No Caffeine use: Yes Place of Residence: Home Review of Systems General: As per HPI Eyes: Unremarkable ENT: Unremarkable Respiratory: Unremarkable Cardiovascular: Unremarkable Gastrointestinal: Nausea, Constipation, As per HPI Genitourinary: Unremarkable Musculoskeletal: Unremarkable Integumentary: Unremarkable Neurological: Unremarkable Lymphatics: Unremarkable Physical Examination - Physical Exam General: Alert, In no apparent distress, Oriented x3, Cooperative HEENT: Atraumatic Neck: Supple Respiratory: Clear to auscultation bilaterally, Normal air movement Cardiovascular: Normal pulses, Regular rate/rhythm Gastrointestinal: Normal bowel sounds, Soft and benign, No rebound, No guarding, Distended (Mild distention noted.), Tenderness (Minimal tenderness to the lower quadrant) Neurological: Normal speech, Normal strength at 5/5 x4 extr, Normal tone, Normal affect - Studies Laboratory Data (last 24 hrs) 10/11/19 15:12: WBC 14.9 H D, Hgb 13.8 D, Hct 43.1 D, Plt Count 222 D 10/11/19 15:12: Sodium 141, Potassium 4.1, BUN 18, Creatinine 1.10, Glucose 169 H, Total Bilirubin 0.8, AST 35, ALT 73, Alkaline Phosphatase 120 H, Lipase 75 Assessment and Plan - Plan Impression: Abdominal pain, nausea and vomiting with recent constipation secondary to retained stool in the sigmoid colon probable mechanical colonic obstruction Diabetes mellitus type 2 insulin dependent Chronic renal disease stage III GERD Chronic atrial fibrillation not on chronic anti coagulation therapy Hyperlipidemia Depression with anxiety Hypothyroidism Hypertension Plan: Abdominal pain, nausea and vomiting with recent constipation secondary to retained stool in the sigmoid colon probable mechanical colonic obstruction: Patient may need further evaluation and treatment. Case discussed with surgery who was been consulted. Surgery reviewed CT scan. Surgery recommends to provide soap suds enema. Will reassess tomorrow. Provide medication for nausea. Recheck abdominal x-ray tomorrow. Will start IV Cipro and Flagyl for possible colitis. Will provide DVT prophylaxis-Lovenox. Will continue monitor closely. Will reassess tomorrow. Possible repeat soap suds enema or Mag ci trate. Will keep the patient NPO at this time. Will provide IV fluids. Will continue to reassess. Anticipate improvement over the next 24-48 hr. Diabetes mellitus type 2 insulin dependent: Monitor Accu-Cheks. Will provide sliding scale. Chronic renal disease stage III: Provide IV fluids. Will monitor closely. GERD: Will provide Protonix IV. Chronic atrial fibrillation not on chronic anti coagulation therapy: Continue DVT prophylaxis. Hyperlipidemia: Hold medication at this time Depression with anxiety: Hold medication Hypothyroidism: Restart medication tomorrow. Hypertension: Will provide medication IV Discharge Plan: Home Plan to discharge in: 48 Hours - Advance Directives Does patient have a Living Will: Yes Does patient have a Durable POA for Healthcare: Yes - Code Status/Comfort Care Code Status Assessed: Yes (Patient full code) Time Spent Managing Pts Care (In Minutes): 55
[2019-10-11] MEDS ORDERED: ACETAMINOPHEN 500 MG TAB PO PRN (18:04)
[2019-10-11] MEDS ORDERED: ONDANSETRON 4 MG/2 ML VIAL IV PRN (18:04)
[2019-10-11] MEDS ORDERED: SODIUM CHLORIDE 0.9% 10ML INJ IV PRN (18:04)
--- NOTE | 2019-10-11 18:42 | RAD REPORT ---
EXAM DESCRIPTION: RAD - Abdomen 1 View (KUB) - 10/11/2019 6:34 pm CLINICAL HISTORY: follow up retained stool Pain COMPARISON: Abdomen Pelvis W Contrast dated 10/11/2019 FINDINGS: Degenerative levoscoliosis is seen of the lumbar spine. Mild gaseous distention of the col on is present with moderate retained stool in the sigmoid colon region suspected. No evidence of pneu moperitoneum. Contrast is present in the urinary bladder.
[2019-10-11] MEDS: NA CHLORIDE 0.9% 1,000 ML IV SCH (18:44)
[2019-10-11] MEDS: METRONIDAZOLE 500mg IVPB 500 MG/100 ML BAG IV SCH (18:48)
[2019-10-11] MEDS: Ciprofloxacin 200mg IV 200 MG/100 ML IV.SOLN. IV SCH (18:48)
[2019-10-11 18:55] VITALS: BMI 37.0
[2019-10-11] MEDS: INSULIN -REGULAR HUMAN 50 UNIT/0.5 ML ML SQ SCH (20:25)
[2019-10-11] MEDS: ENOXAPARIN 40 MG/0.4 ML SQ SCH (20:57)
[2019-10-12] MEDS: METRONIDAZOLE 500mg IVPB 500 MG/100 ML BAG IV SCH ×2 (00:51→07:32)
[2019-10-12 06:00] LABS: Absolute Lymphocytes (CBC) 0.9 K/uL (0.7-4.9); Basophils % 0.2 % (0-1.3); Hematocrit 34.2 % (36.0-45.0); Lymphocytes % 12.4 % (15.3-44.8); MPV 8.5 fL (7.6-11.3)
[2019-10-12] MEDS ORDERED: LEVOTHYROXINE SODIUM 100 MCG VIAL IV SCH ×2 (06:00)
[2019-10-12 06:07] LABS: Magnesium 2.2 mg/dL (1.8-2.4); Potassium 3.9 mmol/L (3.5-5.1)
[2019-10-12] MEDS: INSULIN -REGULAR HUMAN 50 UNIT/0.5 ML ML SQ SCH ×2 (07:30→11:30)
[2019-10-12] MEDS: Ciprofloxacin 200mg IV 200 MG/100 ML IV.SOLN. IV SCH (07:33)
[2019-10-12] MEDS: NA CHLORIDE 0.9% 1,000 ML IV SCH (07:34)
[2019-10-12 07:51] VITALS: BP 115/64
[2019-10-12] MEDS ORDERED: PNEUMOCOCCAL VACCINE 0.5 ML IMVAC ONE (08:00)
[2019-10-12] MEDS ORDERED: LACTULOSE 20 GM/30 ML UCUP PO PRN (08:17)
[2019-10-12 08:50] LABS: Urine Appearance CLEAR; Urine Bilirubin NEGATIVE (NEG); Urine Blood NEGATIVE (NEG); Urine Color YELLOW; Urine Glucose NEGATIVE (NEG); Urine Microscopic Reflex ORDER UMIC; Urine Protein NEGATIVE (NEG); Urine Specific Gravity 1.025 (1.005-1.030); Urine Urobilinogen 0.2 mg/dL (0.2-1.0); Urine pH 5.5 (5.0-7.0)
[2019-10-12 08:57] LABS: Urine Bacteria <20 /HPF (<20); Urine RBC <5 /HPF (NONE SEEN)
[2019-10-12 08:58] LABS: Urine Culture Reflex Order REFLEXED
[2019-10-12] MEDS ORDERED: KCL 20 MEQ/100 mL IVPB 20 MEQ/100 ML BAG IV SCH (09:00)
[2019-10-12] MEDS ORDERED: DOCUSATE NA 100 MG CAP PO SCH (09:00)
[2019-10-12] MEDS ORDERED: PANTOPRAZOLE 40 MG INJ IVP SCH (09:00)
[2019-10-12] MEDS ORDERED: FUROSEMIDE 20 MG/ 2ML VIAL IV SCH (09:00)
[2019-10-12 09:12] VITALS: O2SAT 96
[2019-10-12 09:36] VITALS: TEMP 97.2
[2019-10-12] MEDS: ENOXAPARIN 40 MG/0.4 ML SQ SCH (10:54)
--- NOTE | 2019-10-12 10:55 | P.DS ---
Admission Date: 10/11/19 Discharge Date: 10/12/19 Primary Care Provider: Dr. Rudd Disposition: ROUTINE DISCHARGE Discharge Condition: GOOD Reason for Admission: Nausea, vomiting, constipation, abdominal pain Consultations: Surgery-Dr. Martinez Procedures: CT AB: FINDINGS: A mild chronic opacity is present in the lingula.Trace bilateral pleural fluid. The liver demonstrates no aggressive mass or biliary dilatation. The spleen, pancreas, adrenal glands are within normal limits. Small calculi are present in the upper pole right kidney. No hydronephrosis. There is significant distention of the colon with fluid noted measuring up to 6.5 cm in transverse dimension. The sigmoid colon demonstrates fecal retention with multiple diverticula present. Mild free fluid is seen in the abdomen and pelvis. The appendix is normal. Small fat containing umbilical hernia. No evidence of significant lymphadenopathy. Small air bubble is present in the urinary bladder. Anterior bladder wall is thickened. Moderate lumbar degenerative changes. IMPRESSION: Sigmoid diverticulosis coli is present with stool retained within the sigmoid colon. Upstream colon appears distended measuring up to 6.5 cm and fluid-filled suggesting a component of mechanical colonic obstruction. Anterior urinary bladder wall thickening wit small amount of air in the urinary bladder suggesting cystitis. Mild free fluid is seen in the pelvis. Medical problem list: Abdominal pain, nausea and vomiting with recent constipation secondary to retained stool in the sigmoid colon with possible colitis Diabetes mellitus type 2 insulin dependent Chronic renal disease stage III GERD Chronic atrial fibrillation not on chronic anti coagulation therapy Hyperlipidemia Depression with anxiety Hypothyroidism Hypertension Brief History of Present Illness: 84-year-old female with multiple medical problems including chronic diastolic CHF, chronic renal failure stage 3, chronic atrial fibrillation not on chronic anti coagulation therapy, GERD, hyperlipidemia, diabetes mellitus type 2 insulin dependent, chronic pain, hypothyroidism and depression. Patient recently hospitalized on 10/07/2019 through 10/09/2019 for sepsis related to left lower lobe pneumonia. Since discharge patient has done well. She was given Augmentin for coverage. She had reported some constipation over the past week. Today she had increasing nausea and vomiting. She was given an enema at home with very mild improvement in her constipation. She started to have some abdominal pain mainly to the lower region. Increased nausea and vomiting and distention noted. No mention of fever, chills. No shortness of breath noted. She came to the ER for further evaluation. In the ER patient evaluated. Vital signs stable. Lab showed white count 14.9, hemoglobin 13.8. Platelet count of 222. Sodium 141, potassium 4.1, creatinine 1.1 with a GFR 47. Glucose 169. AST normal 35. ALT normal. Alk-phos 120. Lipase normal. Abdominal CT scan showed sigmoid diverticulosis coli present wit h stool retained in the sigmoid colon. Upstream: Appear distended measuring 6.5 cm with fluid filled component. Probable mechanical colonic obstruction due to increase stool. Patient was admitted for further evaluation. When I saw the patient ER, she appeared more comfortable. Patient did not appear septic at this time. Vital signs stable Hospital Course: Patient presented with abdominal pain, nausea and vomiting. Patient recently hospitalized. Patient reported increase constipation. Patient was evaluated emergency room. CT scan showed retained stool in the sigmoid colon with probable mechanical colonic obstruction. Colitis also suspected. Surgery was consulted. Surgery recommended medication and no intervention. Patient received soapsuds enema with improvement of symptoms and resolution of abdominal pain. Repeat KUB shows improvement. White count was elevated in the patient was started on antibiotic therapy. Patient may have some mild colitis. Therefore at discharge patient will continue with Cipro 250 mg twice daily and Flagyl 500 mg 3 times a day for 7 days. Patient may continue with docusate as a stool softener daily. Patient will be provided lactulose as needed for constipation to be use at home. Patient will also be provided probiotic twice daily. Recommend to monitor her input and output closely. Recommend follow up with her PCP to further monitor and address. Patient to follow up with GI to further monitor and address. Patient would benefit with colonoscopy in the future. Patient with other medical problems including diabetes mellitus type 2 insulin- dependent, chronic renal disease stage III, GERD, chronic atrial fibrillation not on chronic anti coagulation therapy, hyperlipidemia, depression with anxiety, hypothyroidism, and hypertension. At discharge patient may continue with her current regimen of medication. Please note patient is to follow up with GI in the near future for outpatient ERCP and possible endoscopic ultrasound. This is to evaluate her hepatic duct. Vital Signs/Physical Exam: Temp Pulse Resp BP Pulse Ox 97.2 F 92 H 15 115/64 95 10/12/19 08:00 10/12/19 08:00 10/12/19 08:00 10/12/19 08:00 10/12/19 08:00 General: Alert, In no apparent distress, Oriented x3, Cooperative HEENT: Atraumatic Neck: Supple Respiratory: Clear to auscultation bilaterally, Normal air movement Cardiovascular: Normal pulses, Regular rate/rhythm Gastrointestinal: Normal bowel sounds, Soft and benign, Non-distended, No tenderness, No masses, No rebound, No guarding Neurological: Normal speech, Normal strength at 5/5 x4 extr, Normal tone, Normal affect Laboratory Data at Discharge: WBC 7.2 K/uL (4.3-10.9) D 10/12/19 05:29 Hgb 11.2 g/dL (12.0-15.0) L D 10/12/19 05:29 Hct 34.2 % (36.0-45.0) L D 10/12/19 05:29 Plt Count 194 K/uL (152-406) 10/12/19 05:29 Sodium 143 mmol/L (136-145) 10/12/19 05:29 Potassium 3.9 mmol/L (3.5-5.1) 10/12/19 05:29 BUN 17 mg/dL (7-18) 10/12/19 05:29 Creatinine 0.84 mg/dL (0.55-1.3) 10/12/19 05:29 Glucose 99 mg/dL (74-106) 10/12/19 05:29 Magnesium 2.2 mg/dL (1.8-2.4) 10/12/19 05:29 Total Bilirubin 0.8 mg/dL (0.2-1.0) 10/11/19 15:12 AST 35 U/L (15-37) 10/11/19 15:12 ALT 73 U/L (12-78) 10/11/19 15:12 Alkaline Phosphatase 120 U/L (45-117) H 10/11/19 15:12 Lipase 75 U/L (73-393) 10/11/19 15:12 Home Medications: Aspirin [Aspirin EC 81 MG] 81 mg PO DAILY 04/09/18 Insulin Aspart (Niacinamide) [Fiasp 100 Unit/ml Flextouch] 5 unit SQ TID 10/09/19 Insulin Degludec [Tresiba Flextouch U-100] 15 unit SQ DAILY #1 librado 10/09/19 Levothyroxine Sodium [Synthroid] 125 mcg PO DAILY 10/09/19 Metoprolol Tartrate 25 mg PO BID #60 10/09/19 Mirabegron [Myrbetriq] 1 tab PO DAILY 10/09/19 PARoxetine HCL [Paxil*] 10 mg PO DAILY 10/09/19 Rosuvastatin [Crestor*] 1 tab PO DAILY 10/09/19 Ciprofloxacin HCl [Cipro] 250 mg PO BID #14 tablet 10/12/19 Docusate [Colace Cap*] 100 mg PO DAILY #30 cap 10/12/19 Lactobacillus Acidophilus [Acidophilus Lactobacilli] 1 each PO BID #30 capsule 10/12/19 Lactulose [Cephulac*] 30 ml PO BID PRN #1 bottle 10/12/19 metroNIDAZOLE [Flagyl] 500 mg PO Q8H #21 tablet 10/12/19 New Medications: Lactobacillus Acidophilus [Acidophilus Lactobacilli] 1 each PO BID #30 capsule Lactulose [Cephulac*] 30 ml PO BID PRN #1 bottle PRN Reason: Constipation Ciprofloxacin HCl [Cipro] 250 mg PO BID #14 tablet Docusate [Colace Cap*] 100 mg PO DAILY #30 cap metroNIDAZOLE [Flagyl] 500 mg PO Q8H #21 tablet Patient Discharge Instructions: 1. Follow up with PCP in 1 week to follow up this hospitalization. 2. Patient presented with abdominal pain, nausea and vomiting. Patient recently hospitalized. Patient reported increase constipation. Patient was evaluated emergency room. CT scan showed retained stool in the sigmoid colon with probable mechanical colonic obstruction. Colitis also suspected. Surgery was consulted. Surgery recommended medication and no intervention. Patient received soapsuds enema with improvement of symptoms and resolution of abdominal pain. Repeat KUB shows improvement. White count was elevated in the patient was started on antibiotic therapy. Patient may have some mild colitis. Therefore at discharge patient will continue with Cipro 250 mg twice daily and Flagyl 500 mg 3 times a day for 7 days. Patient may continue with docusate as a stool softener daily. Patient will be provided lactulose as needed for constipation to be use at home. Patient will also be provided probiotic twice daily. Recommend to monitor her input and output closely. Recommend follow up with her PCP to further monitor and address. Patient to follow up with GI to further monitor and address. Patient would benefit with colonoscopy in the future. 3. Patient with other medical problems including diabetes mellitus type 2 insulin-dependent, chronic renal disease stage III, GERD, chronic atrial fibrillation not on chronic anti coagulation therapy, hyperlipidemia, depression with anxiety, hypothyroidism, and hypertension. At discharge patient may continue with her current regimen of medication. 4. Please note patient is to follow up with GI in the near future for outpatient ERCP and possible endoscopic ultrasound. This is to evaluate her hepatic duct. Diet: ADA Activity: Fall precautions Time spent managing pt's care (in minutes): 55
--- NOTE | 2019-10-12 11:49 | CON ---
Date of Consultation: 10/11/2019 Reason For Consultation: Abdominal distention, nausea and vomiting. History Of Present Illness: The patient is an 84-year-old female with multiple medical problems, cam e in with nausea, vomiting and abdominal distention. She had been in the hospital recently for sepsi s related to a left lower lobe pneumonia and she was discharged home on Augmentin. She has had some constipation over the last week. Then, she started having increased nausea and vomiting and distenti on, family brought the patient to the emergency room. She was evaluated, workup was started. She de nies any sore throat, runny nose, cough, headaches, dizziness, chest pain, or fever or chills. Review of Systems: Otherwise unremarkable. Past Medical History: Significant for diabetes type 2, hypertension, hypothyroidism, hyperlipidemia, chronic atrial fibrillation, depression, chronic back pain, GERD. Past Surgical History: Cholecystectomy, back surgery, left knee replacement, kidney stone removal, c ataract surgery, heart valve surgery. Allergies: SULFA. Social History: She does not smoke or drink. Family History: Significant for diabetes, cancer, and hypertension. In the mother was uterine cance r, father with hypertension and diabetes. Physical Examination: Vital Signs: Stable. She is afebrile. General: She is awake, alert, and oriented x3. Head and Neck: No masses. Chest: Clear. Heart: S1 and S2. Abdomen: Soft, nondistended, nontender. Positive bowel sounds. Extremities: Neurovascularly intact. Neuro: Nonfocal. Laboratory Data: White count was 14.9 yesterday, 7.3 today. There is slight left shift. Procalcito ilia was 0.52 yesterday. Lactic acid is 2.9. She had a KUB last night, which showed some mild coloni c distention. She had a CAT scan of the abdomen and pelvis, which showed moderate amount of stool in the rectosigmoid region with dilated colon measuring up to 6.5 cm. Assessment: Partial colon obstruction secondary to stool. Recommendations: As the patient has had several bowel movements and is completely asymptomatic at th is time. We will go ahead and let the patient eat, if she tolerates that and the x-ray this morning shows no worsening of the colon, she can be discharged home. No need for any surgical intervention. I advised the patient she needs to be on stool softeners and Metamucil or MiraLAX on a daily basis, GI evaluation. /JON Voice ID: [id number] Report ID: [id number]
--- NOTE | 2019-10-12 12:24 | RAD REPORT ---
EXAM DESCRIPTION: RAD - Abdomen 1 View (KUB) - 10/12/2019 10:52 am CLINICAL HISTORY: follow up retained stool Pain COMPARISON: Abdomen 1 View (KUB) dated 10/11/2019 FINDINGS: Mild improvement in bowel gas pattern is seen since comparative study. There has been mild diminishment in retained stool in distal colon. No pneumoperitoneum seen. Prominent degenerative lev oscoliosis of the lumbar spine.
== END 2019-10-12 12:43 | disposition home or self-care (01) ==
LOC: ER 13:58 → ERHOLD 16:42 → 2ND 17:54
PROVIDERS: ADMIT Family Medicine; ATTEND Family Medicine
DX: K56.690 Other partial intestinal obstruction (principal); K59.00 Constipation, unspecified; K57.30 Diverticulosis of large intestine without perforation or abscess without bleeding; I13.0 Hypertensive heart and chronic kidney disease with heart failure and stage 1 through stage 4 chronic kidney disease, or unspecified chronic kidney disease; I50.32 Chronic diastolic (congestive) heart failure; N18.3 Chronic kidney disease, stage 3 (moderate); E11.22 Type 2 diabetes mellitus with diabetic chronic kidney disease; I48.20 Chronic atrial fibrillation, unspecified; D72.829 Elevated white blood cell count, unspecified; K21.9 Gastro-esophageal reflux disease without esophagitis; E03.9 Hypothyroidism, unspecified; E78.5 Hyperlipidemia, unspecified; G89.29 Other chronic pain; F41.8 Other specified anxiety disorders; Z23 Encounter for immunization; Z79.4 Long term (current) use of insulin; Z79.82 Long term (current) use of aspirin; Z88.2 Allergy status to sulfonamides; Z91.048 Other nonmedicinal substance allergy status; Z90.49 Acquired absence of other specified parts of digestive tract; Z80.49 Family history of malignant neoplasm of other genital organs; Z82.49 Family history of ischemic heart disease and other diseases of the circulatory system; Z83.3 Family history of diabetes mellitus
CPT/HCPCS: 36415; 74018; 74177; 80048; 80076; 81003; 81015; 82947; 83605; 83690; 83735; 84145; 85025; 87040; 87086; 87088; 87205; 90471; 90670; 96361; 96374; 96375; 99285; C9113; G0378; J0744; J1650; J1940; J2270; J2405; J3480; J7030; J7040; Q9967

== ENCOUNTER 2019-12-06 00:58 | Inpatient (IN) | payer OTHER ==
[2019-12-06] MEDS ORDERED: INSULIN -REGULAR HUMAN 50 UNIT/0.5 ML ML ONE ×3 (01:34→22:03)
[2019-12-06] MEDS ORDERED: ONDANSETRON 4 MG/2 ML VIAL ONE ×2 (01:34→04:20)
[2019-12-06] MEDS ORDERED: NA CHLORIDE 0.9% 500 ML ONE (01:34)
[2019-12-06 01:35] LABS: Absolute Lymphocytes (CBC) 1.1 K/uL (0.7-4.9); Basophils % 0.3 % (0-1.3); Lymphocytes % 10.5 % (15.3-44.8); MPV 9.6 fL (7.6-11.3); RBC Red Blood Cell Count 4.48 M/uL (3.86-4.86)
[2019-12-06 02:23] LABS: Albumin 3.3 g/dL (3.4-5.0); Bilirubin Direct 0.4 mg/dL (0-0.2); Bilirubin Total 0.8 mg/dL (0.2-1.0); Potassium 3.7 mmol/L (3.5-5.1); Protein, Total 7.2 g/dL (6.4-8.2)
[2019-12-06] MEDS ORDERED: MORPHINE 2 MG/ML SYR ONE ×2 (02:39→04:07)
[2019-12-06] MEDS ORDERED: HYDRALAZINE HCL 20 MG/ML VIAL ONE (02:54)
[2019-12-06 02:56] LABS: Glucose Level 478 mg/dL (74-106)
--- NOTE | 2019-12-06 04:19 | EDPHYS ---
Physician Documentation [facility] Name: Dianne Juárez Age: 84 yrs Sex: Female : 1935 Arrival Date: 12/06/2019 Time: 00:59 Bed 2 Private MD: ED Physician Chandler Champagne HPI: 12/05 05:27 This 84 yrs old Female presents to ER via EMS with complaints of High Blood tw4 Sugar, Abdominal Pain. 05:27 The patient presents with abdominal pain in the epigastric area. Onset: The tw4 symptoms/episode began/occurred today. The symptoms do not radiate. Associated signs and symptoms: none. The symptoms are described as crampy. Modifying factors: The symptoms are alleviated by nothing, the symptoms are aggravated by nothing. Severity of pain: At its worst the pain was moderate in the emergency department the pain is unchanged. The patient has not experienced similar symptoms in the past. Historical: - Allergies: 01:00 Adhesives; sg 01:00 Sulfa (Sulfonamide Antibiotics); sg - Home Meds: 01:15 aspirin 81 mg Oral chew 1 tab once daily [Active]; famotidine 20 mg Oral tab 1 tab once rr5 daily [Active]; Eliquis 5 mg Oral tab 1 tab 2 times per day [Active]; fiasp insulin [Active]; lansoprazole 30 mg Oral cpDR 1 cap once daily [Active]; glipizide 5 mg Oral tab 2 tabs once daily [Active]; glimepiride 1 mg Oral tab twice daily [Active]; Lantus 100 unit/mL Sub-Q soln daily [Active]; Lasix 40 mg Oral tab 1 tab once daily [Active]; lisinopril 10 mg Oral tab 1 tab once daily [Active]; lisinopril 2.5 mg Oral tab 1 tab once daily [Active]; levothyroxine 150 mcg tab 1 tab once daily [Active]; losartan-hydrochlorothiazide 50-12.5 mg Oral tab 1 tab once daily [Active]; metoprolol tartrate 25 mg Oral tab 1 tab 2 times per day [Active]; metformin 1,000 mg Oral tab 2 times per day [Active]; naproxen 500 mg Oral tab 1 tab every 12 hours [Active]; Myrbetriq 50 mg Oral Tb24 1 tab once daily [Active]; omeprazole 20 mg Oral TbEC as needed [Active]; ozempic insulin [Active]; Plavix 75 mg Oral tab 1 tab once daily [Active]; rosuvastatin 10 mg Oral tab 1 tab once daily [Active]; simvastatin 80 mg Oral tab daily [Active]; Tresiba FlexTouch U-100 100 unit/mL (3 mL) subcutaneous inpn 20 unit [Active]; - PMHx: 01:00 Atrial Fib; Diabetes - NIDDM; Hyperlipidemia; Hypothyroidism; Hypertension; irregular sg heart beat; - PSHx: 01:00 Cholecystectomy; Lithotripsy; Carpal Tunnel Repair; Knee surgery; BACK SURGERY; sg 01:15 stent in pancreas; rr5 - Immunization history:: Adult Immunizations up to date. - Social history:: Smoking status: Patient denies any tobacco usage or history of. ROS: 05:27 Constitutional: Negative for fever, chills, and weight loss, Eyes: Negative for injury, tw4 pain, redness, and discharge, Cardiovascular: Negative for chest pain, palpitations, and edema, Respiratory: Negative for shortness of breath, cough, wheezing, and pleuritic chest pain, Back: Negative for injury and pain, MS/Extremity: Negative for injury and deformity, Skin: Negative for injury, rash, and discoloration, Neuro: Negative for headache, weakness, numbness, tingling, and seizure. 05:27 Abdomen/GI: Positive for abdominal pain, nausea and vomiting, nausea, vomiting, and diarrhea, nausea, vomiting, Negative for diarrhea, constipation, abdominal cramps, abdominal distension, anorexia, dysphagia, hematemesis, black/tarry stool, rectal pain, rectal bleeding, bowel incontinence, flatulence. Exam: 05:27 Constitutional: This is a well developed, well nourished patient who is awake, alert, tw4 and in no acute distress. Head/Face: Normocephalic, atraumatic. Chest/axilla: Normal chest wall appearance and motion. Nontender with no deformity. No lesions are appreciated. Cardiovascular: Regular rate and rhythm with a normal S1 and S2. No gallops, murmurs, or rubs. Normal PMI, no JVD. No pulse deficits. Respiratory: Lungs have equal breath sounds bilaterally, clear to auscultation and percussion. No rales, rhonchi or wheezes noted. No increased work of breathing, no retractions or nasal flaring. 05:27 Abdomen/GI: Inspection: abdomen appears normal, Bowel sounds: diminished, Palpation: moderate abdominal tenderness, in the umbilical area, right lower quadrant and left lower quadrant. Vital Signs: 01:04 BP 148 / 100; Pulse 80; Resp 16; Temp 98.4; Pulse Ox 97% ; Weight 93.89 kg; rr5 02:08 BP 132 / 100; Pulse 84; Resp 18; Pulse Ox 100% on R/A; ea 03:00 BP 109 / 85; Pulse 62; Resp 19; Pulse Ox 99% ; rr5 03:50 BP 136 / 91; Pulse 73; Resp 18; Pulse Ox 100% ; rr5 04:00 BP 152 / 84; Pulse 83; Resp 18; Pulse Ox 98% ; rr5 05:57 BP 149 / 94; Pulse 99; Resp 18; Pulse Ox 98% on 3 lpm NC; rr5 06:16 BP 120 / 87; Pulse 96; Resp 20; Pulse Ox 94% on 3 lpm NC; rr5 MDM: 00:59 Patient medically screened. tw4 05:28 Data reviewed: vital signs, nurses notes. Data interpreted: Pulse oximetry: tw4 Interpretation: normal. Counseling: I had a detailed discussion with the patient and/or guardian regarding: the historical points, exam findings, and any diagnostic results supporting the discharge/admit diagnosis. Physician consultation: Benjamin Mcclendon MD regarding admission, to the medical/surgical unit. Special discussion: Based on the patient's Hx, exam, and Dx evaluation, there is no indication for emergent surgery or inpatient Tx. It is understood by the patient/guardian that if the Sx's persist or worsen they need to return immediately for re-evaluation. 12/05 01:01 Order name: Basic Metabolic Panel; Complete Time: 03:32 tw4 12/05 03:33 Interpretation: Normal except: NA 133; CL 94; GLUC 617; BUN 35; CRE 1.92; GFR 25. tw4 12/05 01:01 Order name: CBC with Diff; Complete Time: 03:32 tw4 12/05 03:33 Interpretation: Normal except: MCV 93.6; NEUT A 9.0; LYM% 10.5; JESICA% 82.9; RDW 15.9. tw4 12/05 01:01 Order name: Hepatic Function; Complete Time: 03:32 tw4 12/05 03:34 Interpretation: Normal except: A/G 0.8; ALB 3.3; GLOB 3.9; BILID 0.4; ALK 218; AST 44. tw4 12/05 01:01 Order name: Lipase; Complete Time: 03:33 tw4 12/05 02:27 Order name: Acetone, Serum; Complete Time: 03:33 ea 12/05 02:27 Order name: Glucose; Complete Time: 03:33 sg 12/05 02:37 Order name: CREATININE WHOLE BLOOD; Complete Time: 03:33 EDMS 12/05 04:37 Order name: Glucose, Ancillary Testing; Complete Time: 04:54 EDMS 12/05 04:54 Interpretation: Abnormal: GLUC,ANCIL > 500. tw4 12/05 05:05 Order name: Glucose, Ancillary Testing; Complete Time: 05:24 EDMS 12/05 06:05 Order name: Basic Metabolic Panel EDMS 12/05 06:05 Order name: Basic Metabolic Panel EDMS 12/05 06:05 Order name: CBC with Automated Diff EDMS 12/05 06:05 Order name: CBC with Automated Diff EDMS 12/05 01:01 Order name: IV Saline Lock; Complete Time: 01:29 tw4 12/05 01:01 Order name: Labs collected and sent; Complete Time: 01:29 tw4 12/05 01:01 Order name: CT Abd/Pelvis - IV Contrast Only tw4 Administered Medications: 01:29 Drug: NS 0.9% 500 ml Route: IV; Rate: bolus; Site: right antecubital; ea 02:00 Follow up: Response: No adverse reaction; IV Status: Completed infusion; IV Intake: ea 500ml 01:29 Drug: Zofran (Ondansetron) 4 mg Route: IVP; Site: right antecubital; ea 02:00 Follow up: Response: No adverse reaction ea 01:29 Drug: Insulin Regular Human 10 units {Co-Signature: rr5 (Christian Orlando RN).} Route: ea IVP; Site: right antecubital; 02:00 Follow up: Response: No adverse reaction ea 02:51 Drug: morphine 2 mg {Note: rass 0.} Route: IVP; Site: right antecubital; ea 03:35 Drug: Insulin Regular Human 5 units {Co-Signature: broderick (Vashti Kelly RN).} Route: IVP; rr5 Site: right antecubital; 04:28 Follow up: Response: No adverse reaction ea 03:58 Drug: morphine 2 mg {Note: rass 0.} Route: IVP; Site: right antecubital; rr5 04:28 Follow up: Response: No adverse reaction; RASS: Alert and Calm (0) ea 04:15 Drug: Zofran (Ondansetron) 4 mg Route: IVP; Site: right antecubital; ea 04:29 Follow up: Response: No adverse reaction; Nausea is decreased ea 04:27 Drug: Phenergan 6.25 mg Route: IVP; Site: right antecubital; ea 05:20 Follow up: Response: No adverse reaction rr5 06:11 Drug: Bentyl 20 mg Route: PO; rr5 06:17 Follow up: Response: No adverse reaction rr5 06:12 CANCELLED (Inappropriate at this time): fentaNYL (PF) 50 mcg IVP once; RASS on ADMIN: ea Combtv4, Very Agttd3, Agttd2, Rstlss1, AlertClm0, Drwsy-1, Lt Sdtn-2, Mod Sdtn-3, Dp Sdtn-4, UnArsble-5 Disposition: 12/06/19 05:04 Hospitalization ordered by Benjamin Mcclendon for Inpatient Admission. Preliminary diagnosis are Acute kidney failure, Dehydration, Cyclical vomiting, intractable. - Bed requested for Telemetry/MedSurg (Inpatient). - Status is Inpatient Admission. rr5 - Condition is Fair. - Problem is new. - Symptoms are unchanged. Signatures: Dispatcher [employer] EDMS Ping Kwan RN RN mw Gay, Steven, RN RN sg Antunez, Elena, RN RN ea Wadley, Terrence, MD MD tw4 Christian Orlando RN RN rr5 Christian Orlando RN rr5 Vashti Kelly RN, ea Corrections: (The following items were deleted from the chart) 02:28 02:27 ACETONE, SERUM+C.LAB.BRZ ordered. EDDE EDMS 04:51 04:18 12/06/2019 04:18 Discharged to Home. Impression: Abdominal tenderness. Condition tw4 is Stable. Forms are Medication Reconciliation Form, Thank You Letter, Antibiotic Education, Prescription Opioid Use. Follow up: Private Physician; When: Upon discharge from the Emergency Department; Reason: Recheck today's complaints, Continuance of care, Re-evaluation by your physician. Problem is new. Symptoms have improved. tw4 05:25 05:04 Hospitalization Ordered by Benjamin Mcclendon MD for Inpatient Admission. Preliminary mw diagnosis is Acute kidney failure; Dehydration; Cyclical vomiting, intractable. Bed requested for Telemetry/MedSurg (Inpatient). Status is Inpatient Admission. Condition is Fair. Problem is new. Symptoms are unchanged. [facility] 06:12 06:09 fentaNYL (PF) 50 mcg IVP once; RASS on ADMIN: Combtv4, Very Agttd3, Agttd2, ea Rstlss1, AlertClm0, Drwsy-1, Lt Sdtn-2, Mod Sdtn-3, Dp Sdtn-4, UnArsble-5 ordered. ea 06:12 06:12 fentaNYL (PF) 50 mcg IVP once; RASS on ADMIN: Combtv4, Very Agttd3, Agttd2, ea Rstlss1, AlertClm0, Drwsy-1, Lt Sdtn-2, Mod Sdtn-3, Dp Sdtn-4, UnArsble-5 ordered. 06:18 05:25 12/06/2019 05:04 Hospitalization Ordered by Benjamin Mcclendon MD for Inpatient rr5 Admission. Preliminary diagnosis is Acute kidney failure; Dehydration; Cyclical vomiting, intractable. Bed requested for Telemetry/MedSurg (Inpatient). Status is Inpatient Admission. Condition is Fair. Problem is new. Symptoms are unchanged. mw
--- NOTE | 2019-12-06 04:19 | ER ---
Nurse's Notes [facility] Name: Dianne Juárez Age: 84 yrs Sex: Female : 1935 Arrival Date: 12/06/2019 Time: 00:59 Bed 2 Private MD: Diagnosis: Acute kidney failure;Dehydration;Cyclical vomiting, intractable Presentation: 12/05 01:04 Chief complaint: EMS states: complaints of abdominal pain, nausea and vomiting started rr5 2 hours ago. the family member stated her morning sugar level was 445 mg/Dl, she is taking insulin every meal. we checked her sugar it register High. Coronavirus screen: Client denies travel out of the [place] in the last 14 days. At this time, the client does not indicate any symptoms associated with coronavirus-19. Ebola Screen: Patient negative for fever greater than or equal to 101.5 degrees Fahrenheit, and additional compatible Ebola Virus Disease symptoms Patient denies exposure to infectious person. Patient denies travel to an Ebola-affected area in the 21 days before illness onset. Initial Sepsis Screen: Does the patient meet any 2 criteria? No. Patient's initial sepsis screen is negative. Does the patient have a suspected source of infection? Yes: Acute abdominal pain. Risk Assessment: Do you want to hurt yourself or someone else? Patient reports no desire to harm self or others. Onset of symptoms was December 05, 2019. 01:04 Method Of Arrival: EMS: [facility] rr5 01:04 Acuity: DOMINIQUE 3 rr5 Triage Assessment: 01:30 General: Behavior is calm, cooperative. rr5 Historical: - Allergies: 01:00 Adhesives; sg 01:00 Sulfa (Sulfonamide Antibiotics); sg - Home Meds: 01:15 aspirin 81 mg Oral chew 1 tab once daily [Active]; famotidine 20 mg Oral tab 1 tab once rr5 daily [Active]; Eliquis 5 mg Oral tab 1 tab 2 times per day [Active]; fiasp insulin [Active]; lansoprazole 30 mg Oral cpDR 1 cap once daily [Active]; glipizide 5 mg Oral tab 2 tabs once daily [Active]; glimepiride 1 mg Oral tab twice daily [Active]; Lantus 100 unit/mL Sub-Q soln daily [Active]; Lasix 40 mg Oral tab 1 tab once daily [Active]; lisinopril 10 mg Oral tab 1 tab once daily [Active]; lisinopril 2.5 mg Oral tab 1 tab once daily [Active]; levothyroxine 150 mcg tab 1 tab once daily [Active]; losartan-hydrochlorothiazide 50-12.5 mg Oral tab 1 tab once daily [Active]; metoprolol tartrate 25 mg Oral tab 1 tab 2 times per day [Active]; metformin 1,000 mg Oral tab 2 times per day [Active]; naproxen 500 mg Oral tab 1 tab every 12 hours [Active]; Myrbetriq 50 mg Oral Tb24 1 tab once daily [Active]; omeprazole 20 mg Oral TbEC as needed [Active]; ozempic insulin [Active]; Plavix 75 mg Oral tab 1 tab once daily [Active]; rosuvastatin 10 mg Oral tab 1 tab once daily [Active]; simvastatin 80 mg Oral tab daily [Active]; Tresiba FlexTouch U-100 100 unit/mL (3 mL) subcutaneous inpn 20 unit [Active]; - PMHx: 01:00 Atrial Fib; Diabetes - NIDDM; Hyperlipidemia; Hypothyroidism; Hypertension; irregular sg heart beat; - PSHx: 01:00 Cholecystectomy; Lithotripsy; Carpal Tunnel Repair; Knee surgery; BACK SURGERY; sg 01:15 stent in pancreas; rr5 - Immunization history:: Adult Immunizations up to date. - Social history:: Smoking status: Patient denies any tobacco usage or history of. Screenin:30 Abuse screen: Denies threats or abuse. Nutritional screening: No deficits noted. ea Tuberculosis screening: No symptoms or risk factors identified. Fall Risk Assessment: 01:30 General: Appears in no apparent distress. Pain: Complains of pain in abdomen. Neuro: ea Level of Consciousness is awake, alert, obeys commands, Oriented to person, place, time. Cardiovascular: Patient's skin is warm and dry. Respiratory: Airway is patent Respiratory effort is even, unlabored, Respiratory pattern is regular, symmetrical. GI: Bowel sounds present X 4 quads. Abd is soft and non tender. Derm: Skin is dry, Skin is pale, Skin temperature is warm. 02:27 Reassessment: repeat CBG High result. glucose test extracted and sent to laboratory per rr5 protocol. 03:30 Reassessment: Patient appears in no apparent distress at this time. on side lying rr5 position complaining of nausea vomiting and abdominal pain Patient states symptoms have not improved. 04:50 Reassessment: hospitalist at bedside examining the patient. rr5 Vital Signs: 01:04 BP 148 / 100; Pulse 80; Resp 16; Temp 98.4; Pulse Ox 97% ; Weight 93.89 kg; rr5 02:08 BP 132 / 100; Pulse 84; Resp 18; Pulse Ox 100% on R/A; ea 03:00 BP 109 / 85; Pulse 62; Resp 19; Pulse Ox 99% ; rr5 03:50 BP 136 / 91; Pulse 73; Resp 18; Pulse Ox 100% ; rr5 04:00 BP 152 / 84; Pulse 83; Resp 18; Pulse Ox 98% ; rr5 05:57 BP 149 / 94; Pulse 99; Resp 18; Pulse Ox 98% on 3 lpm NC; rr5 06:16 BP 120 / 87; Pulse 96; Resp 20; Pulse Ox 94% on 3 lpm NC; rr5 ED Course: 00:59 Patient arrived in ED. sg 00:59 Chandler Champagne MD is Attending Physician. tw4 01:00 Darren Rudd MD is Private Physician. sg 01:00 Arm band placed on left wrist. rr5 01:04 Christian Orlando RN is Primary Nurse. rr5 01:09 Triage completed. rr5 01:10 Patient has correct armband on for positive identification. Placed in gown. Bed in low rr5 position. Call light in reach. Side rails up X2. monitor technician on. Pulse ox on. NIBP on. 01:20 Inserted saline lock: 20 gauge in right antecubital area, using aseptic technique. ea Blood collected. 02:24 Notified ED physician of a critical lab result(s). elevated serum blood glucose, 617. sg 02:58 CT Abd/Pelvis - IV Contrast Only In Process Unspecified. EDMS 05:03 Benjamin Mcclendon MD is Hospitalizing Provider. tw4 06:16 No provider procedures requiring assistance completed. Patient admitted, IV remains in rr5 place. intact, No redness/swelling at site. Administered Medications: 01:29 Drug: NS 0.9% 500 ml Route: IV; Rate: bolus; Site: right antecubital; ea 02:00 Follow up: Response: No adverse reaction; IV Status: Completed infusion; IV Intake: ea 500ml 01:29 Drug: Zofran (Ondansetron) 4 mg Route: IVP; Site: right antecubital; ea 02:00 Follow up: Response: No adverse reaction ea 01:29 Drug: Insulin Regular Human 10 units {Co-Signature: rr5 (Christian Orlando RN).} Route: ea IVP; Site: right antecubital; 02:00 Follow up: Response: No adverse reaction ea 02:51 Drug: morphine 2 mg {Note: rass 0.} Route: IVP; Site: right antecubital; ea 03:35 Drug: Insulin Regular Human 5 units {Co-Signature: ea (Vashti Kelly RN).} Route: IVP; rr5 Site: right antecubital; 04:28 Follow up: Response: No adverse reaction ea 03:58 Drug: morphine 2 mg {Note: rass 0.} Route: IVP; Site: right antecubital; rr5 04:28 Follow up: Response: No adverse reaction; RASS: Alert and Calm (0) ea 04:15 Drug: Zofran (Ondansetron) 4 mg Route: IVP; Site: right antecubital; ea 04:29 Follow up: Response: No adverse reaction; Nausea is decreased ea 04:27 Drug: Phenergan 6.25 mg Route: IVP; Site: right antecubital; ea 05:20 Follow up: Response: No adverse reaction rr5 06:11 Drug: Bentyl 20 mg Route: PO; rr5 06:17 Follow up: Response: No adverse reaction rr5 06:12 CANCELLED (Inappropriate at this time): fentaNYL (PF) 50 mcg IVP once; RASS on ADMIN: ea Combtv4, Very Agttd3, Agttd2, Rstlss1, AlertClm0, Drwsy-1, Lt Sdtn-2, Mod Sdtn-3, Dp Sdtn-4, UnArsble-5 Intake: 02:00 IV: 500ml; Total: 500ml. ea Outcome: 04:18 Discharge ordered by . tw4 05:04 Decision to Hospitalize by Provider. tw4 06:16 Admitted to Med/surg accompanied by tech, via stretcher, room 225, with oxygen, with rr5 chart, Report called to nadja 06:16 Condition: stable 06:16 Instructed on the need for admit. 06:18 Patient left the ED. rr5 Signatures: Dispatcher [employer] EDHector Roe, RN Vashti Tesfaye RN Chandler Knowles ea, MD MD tw4 Christian Orlando RN RN rr5 Christian Orlando RN rr5 Vashti Kelly RN, ea Corrections: (The following items were deleted from the chart) 02:26 02:24 Notified ED physician of a critical lab result(s). elevated serum blood glucose sgsg
[2019-12-06] MEDS ORDERED: DICYCLOMINE HCL 10 MG CAP ONE (04:20)
[2019-12-06] MEDS ORDERED: PROMETHAZINE INJ 25 MG/ML AMP ONE (04:34)
--- OUTSIDE RECORDS SUMMARY | 2019-12-06 05:42 | XMS REPORT | Clinical Summary ---
:1935 Author Organization [facility] Address [address] [place] [address] Care Team Providers Name Role Phone Waylon Goodman Primary Care Provider Unavailable Allergies Active Allergy Reactions Severity Noted Date Comments Adhesive 04/23/2013 Tears skin Sulfa (Sulfonamide 11/21/2019 Swelling; hives and itching Antibiotics) Medications Medication Sig Dispensed Refills Start Date End Date Status glimepiride (AMARYL) 1 Take 1 mg by 0 Active MG tablet mouth every morning before breakfast. lisinopril Take 2.5 mg by 0 Acti ve (PRINIVIL,ZESTRIL) 2.5 mouth daily. MG tablet simvastatin (ZOCOR) 10 Take 10 mg by 0 Active MG tablet mouth nightly. omeprazole (PRILOSEC) Take 40 mg by 0 Active 40 MG capsule mouth daily. levothyroxine Take 125 mcg by 0 Active (SYNTHROID, LEVOTHROID) mouth daily . 150 MCG tablet multivitamin capsule Take 1 capsule by 0 Active mouth daily. CALCIUM CITRATE/VITAMIN Take by mouth 0 Active D3 (CALCIUM CITRATE + D daily. ORAL) rivaroxaban (XARELTO) Take 20 mg by 0 Active 20 mg Tab tablet mouth daily. darifenacin (ENABLEX) Take 15 mg by 0 Active 15 mg 24 hr tablet mouth daily. ERGOCALCIFEROL, VITAMIN Take by mouth 0 Active D2, (VITAMIN D2 ORAL) daily. albuterol (PROVENTIL Inhale 1 puff by 0 Active HFA;VENTOLIN HFA) 90 mouth via inhaler mcg/actuation inhaler every 6 (six) hours as needed. amitriptyline (ELAVIL) Take 25 mg by 0 Active 25 MG tablet mouth nightly. fenofibrate micronized Take 134 mg by 0 Active (LOFIBRA) 134 MG mouth every capsule morning before breakfast. metoprolol (TOPROL-XL) Take 25 mg by 0 Active 25 MG 24 hr tablet mouth daily. metFORMIN (GLUMETZA) Take 500 mg by 0 Active 500 MG (MOD) 24 hr mouth daily with tablet breakfast. pantoprazole (PROTONIX) Take 40 mg by 0 Active 40 MG tablet mouth daily. aspirin 81 MG EC tablet Take 81 mg by 0 Active mouth daily. furosemide (LASIX) 80 Take 80 mg by 0 Active MG tablet mouth 2 (two) times daily. rosuvastatin (CRESTOR) Take 10 mg by 0 Active 10 MG tablet mouth daily. ferrous sulfate 325 (65 Take 65 mg by 0 Active FE) MG tablet mouth daily with breakfast. Active Problems Problem Noted Date Renal calculus 05/01/2013 Encounters Date Type Specialty Care Team Description 11/21/2019 Anesthesia Event Gastroenterology Jerri Magallanes MD 11/21/2019 Surgery Gastroenterology Abdias Michele MD ERCP, PAPILLOTOMY 11/21/2019 Hospital Encounter Gastroenterology Abdias Michele MD 11/21/2019 Travel after 12/05/2018 Social History Tobacco Use Types Packs/Day Years Used Date Never Smoker Smokeless Tobacco: Never Used Alcohol Use Drinks/Week oz/Week Comments No Sex Assigned at Date Recorded Not on file Job Start Date Occupation Industry Not on file Not on file Not on file Travel History Travel Start Travel End No recent travel history available. Last Filed Vital Signs Vital Sign Reading Time Taken Blood Pressure 161/87 11/21/2019 4:28 PM CDT Pulse 54 11/21/2019 4:28 PM CDT Temperature 36.4 C (97.6 F) 11/21/2019 4:28 PM CDT Respiratory Rate 15 11/21/2019 4:28 PM CDT Oxygen Saturation 94% 11/21/2019 4:28 PM CDT Inhaled Oxygen Concentration - - Weight 91 kg (200 lb 11.2 oz) 11/21/2019 12:11 PM CDT Height 149.9 cm (4' 11") 11/21/2019 12:11 PM CDT Body Mass Index 40.54 11/21/2019 12:11 PM CDT Plan of Treatment Health Maintenance Due Date Last Done Comments PNEUMOCOCCAL 65+ LOW/MEDIUM RISK (1 of 2 - PCV13) 2000 MEDICARE ANNUAL WELLNESS (YEAR 2 or FIRST YEAR if no 03/31/2001 IPPE) INFLUENZA VACCINE (#1) 2019 Implants Implanted Type Area Volleyball Assistant Coach Device Shelf Model / Identifier Expiration Date Ser ial / Lot Advanix Pancreatic Stent Straight - No Leading Cynthia Exosect 07/16/2020 [id number] / Implanted: Qty: 1 on 11/21/2019 by Abdias Michele MD / [id number] Procedures Procedure Name Priority Date/Time Associated Diagnosis Comme nts REPORT OF PROCEDURE 11/21/2019 3:20 PM - ENDOSCOPY URL CDT FL ERCP Routine 11/21/2019 3:07 PM Results for this CDT procedure are i n the results section. ERCP,PANCREATIC 11/21/2019 1:00 PM Biliary stricture STENT CDT Special Needs (SPY GLASS, C-ARM) PROCEDURE W/ C-ARM 11/21/2019 1:00 PM CDT Biliary str icture Special Needs (SPY GLASS, C-ARM) ERCP,PAPILLOTOMY 11/21/2019 1:00 PM CDT Biliary stric ture Special Needs (SPY GLASS, C-ARM) POCT-GLUCOSE METER Routine 11/21/2019 12:25 PM CDT after 12/05/2018 Results REPORT OF PROCEDURE - ENDOSCOPY URL (11/21/2019 3:20 PM CDT) Narrative Performed At This result has an attachment that is no t available. [place] Endoscopic Retrograde Cholangiopancreatography (11/21/2019 3:07 PM CDT) Specimen Narrative Performed At Fluoroscopic unit utilized for a procedure performed i n the OR.No GE RIS interpretation was requested.Refer to the operativ e report for findings.Refer to PACS for patient radiation dose information. Procedure Note Interface, External Ris In - 11/21/2019 3:27 PM CDT Fluoroscopic unit utilized for a procedu re performed in the OR. No interpretation was requested. Refer to the operative r eport for findings. Refer to PACS for patient radiation dose information. Performing Organization Address City/State/Zipcode Phone Number GE RIS POC-Glucose meter (11/21/2019 12:25 PM CDT) POC-Glucose Meter 166 (H)Comment: : TESTED 70 - 110 mg/dL [facility] [address] [facility] [facility] [facility] [address] [facility], [address]: Sewing Department Supervisor/Campaign Worker ID = [id number] for CHRIS RANDY Specimen Blood Performing Organization Address City/State/Zipcode Phone Number [facility] [address] [place] [address] CENTER after 12/05/2018 Insurance Payer Benefit Plan / Group Subscriber ID Type Phone A ddress MEDICARE MEDICARE A B xxxxxxxxxxx Medicare
--- OUTSIDE RECORDS SUMMARY | 2019-12-06 05:42 | XMS REPORT | Clinical Summary ---
:1935 Author Organization [facility] Address [address] [place] [address] Care Team Providers Name Role Phone Asked, [...] claudication (P rimary Dx) 07/03/2019 Travel after 12/05/2018 Immunizations Name Administration Dates Next Due Pneumococcal Conjugate 13-Valent 12/23/2017 () Surgical History Surgery Date Site/Laterality Comments GALLBLADDER SURGERY REPLACEMENT TOTAL KNEE Left KIDNEY STONE SURGERY SPINE SURGERY CARDIAC CATHETERIZATION 12/21/2017 N/A Procedur e: Cv left atrial appendage closur e- LARIAT; Surgeon: Maureen Douglas MD; Location: [facility] Invasive Location; Servi ce: Cardiology; Laterality: N/A; Medical devices from this surgery are in the Impla nts section. CARDIAC CATHETERIZATION 12/21/2017 N/A Procedur e: Cv periocardiocentesis; Surgeon: Maureen Douglas MD; Location: [facility] Invasive Location; Servi ce: Cardiology; Laterality: N/A; Medical devices from this surgery are in the Impla nts section. Medical History Medical History Date Comments Diabetes mellitus (HCC) Arthritis Atrial fibrillation (HCC) Hypercholesterolemia Hypothyroid Hypertension Family History Medical History Relation Name Comments [...] (#1) 1985 65+ PNEUMOCOCCAL VACCINE (1 of 1 - PPSV23) 2000 INFLUENZA VACCINE 09/28/2019 Implants Implanted Type Area Distribution Warehouse Manager Device Shelf Model / Identifier Expiration Serial / Date Lot Erin Farfan 0.35in 90cm [id number] - [id number] Cardiova scular N/A: [employer] 20 06 / Implanted: 12/21/2017 at [facility] (Quantity not on file) Implants N/A / Knee Implant Description:left knee Procedures Procedure Name Priority Date/Time Associated Diagnosis Comme nts MRI LUMBAR SPINE WO Routine 07/11/2019 11:02 Spinal stenosis o f Results for this CONTRAST AM CDT lumbar region with procedure are in neurogenic the results claudication section. after 12/05/2018 Results MRI Lumbar Spine Wo Contrast (07/11/2019 11:02 AM CDT) Specimen Narrative Performed At This result has an attachment that is no t available. EXAMINATION: MRI LUMBAR SPINE WO CONTRAST RADIANT CLINICAL HISTORY: M48.062 Spinal stenosi s [...] progressed at multiple levels as detailed above. [facility]-[id number] Procedure Note Hm Interface, Radiology Results Incoming [...] progressed at multiple levels as detailed above. 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
--- OUTSIDE RECORDS SUMMARY | 2019-12-06 05:43 | XMS REPORT | Continuity of Care Document ---
:1935 Author Organization [employer] Care Team Providers Name Role Phone [facility] twidox Unavailable Un available Problems Problem Status Onset Classification Date Comments Sourc e Date Reported CCL / LHC W/ POSS PCI Active [facility] DOHERTY TO ASSI 019 [place] Unspecified atrial 08/06/2018 [facility] fibrillation [address] [place] [address] AFIB Active [address] DX:ABDOMINAL STRESS Active [facility] DYSPNEA 015 [facility] Atrial fibrillation Resolved Problem 01/03/2019 [facility] (disorder) [facility] Diabetes mellitus Resolved Problem 01/03/2019 [facility] (disorder) [facility] Hypercholesterolemia Resolved Problem 01/03/2019 [facility] (disorder) [facility] Hypertensive disorder, Resolved Problem 01/03/2019 [facility] systemic arterial [place] (disorder) [place] Thyroid structure (body Resolved Problem 06/29/2014 1hypo [facility] structure) [facility] OTHER FORMS OF DYSPNEA Active [facility] Medications Medication Details Route Status Patient Ordering Order Source Instructions Provider Date Famotidine 20 MG Notes: (Same Inactive [place] Oral Tablet as: Pepcid) [address] [place] [address] Thyroxine Notes: Take Inactive [facility] 1 hour 019 Medical before or 2 Center hours after meal; Enteral feeds may interefere with the absorption of this medication. (Same as: Levothroid) Lisinopril Notes: (Same [place] as: 019 Medical Prinivil) [place] 24 HR mirabegron Notes: (Same Inactive [place] 50 MG Extended as: 019 Medical Release Tablet Myrbetriq [place] [Myrbetriq] ER) Non-Formular y rosuvastatin Notes: (Same Inactive [place] As: Crestor) [address] [place] [address] Plavix Notes: (Same Inactive [facility] As: Plavix) 019 Medical Center Eliquis Notes: Same Inactive [place] as: Eliquis 019 [facility] Center clopidogrel 75 75 mg = 1 [place] mg oral tablet tab, PO, 019 Medical Daily, # 90 Center tab, 3 Refill(s) Epinephrine 0.01 Route: Inactive [place] as MG/ML / SUB-Q, [address] [place] [address] Lidocaine Dosing Center Hydrochloride 10 Weight MG/ML Injectable 97.273, kg, Solution ONCE, Start date: 01/01/19 2:00:00 PRESSURE WELDER, Stop date: 01/01/19 2:00:00 PRESSURE WELDER insulin degludec insulin [place] Longer [place] degludec, 14 Active [facility] Medical unit, Route: [place] SUB-Q, Daily, 12/31/18 21:30:00 PRESSURE WELDER, Duration: 30 day, Stop date: 01/30/19 9:00:00 PRESSURE WELDER, 0 Eliquis 5 mg, Route: Inactive [facility] PO, Drug [facility] Medical form: TAB, Center Q12H, Dosing Weight 97.273, kg, Start date: 12/31/18 21:00:00 PRESSURE WELDER, Duration: 30 day, Stop date: 01/30/19 9:00:00 PRESSURE WELDER Humalog Notes: (Same Inactive [facility] as: Humalog) [facility] Medical Roll in Center palms of hands gently; Do not shake vigorously. WASTE: F/P - Black; E - Municipal Trash Bin Stable for 28 days at room temperature. Expires in days from __Date metoprolol Notes: (Same No Longer [place] as tartrate as: Active [address] [place] [address] Lopressor) [place] Insulin, Aspart, Route: Inactive [place] as Human SUB-Q, [address] [place] [address] TID-Before Center Meals, Dosing Weight 97.273, kg, Start date: 12/31/18 16:30:00 PRESSURE WELDER, Duration: 30 day, Stop date: 01/30/19 11:30:00 PRESSURE WELDER Dextrose 50% 12.5 gm, 25 [place] Longer [place] Syringe mL, Route: Active [address] [place] [address] IVP, Drug [place] Form: INJ, Dosing Weight 97.273, kg, PRN, PRN Blood Glucose Results, Start date: 12/31/18 14:40:00 PRESSURE WELDER, Duration: 30 day, Stop date: 01/30/19 14:39:00 PRESSURE WELDER, 0 Glucagon 1 mg, Route: No Longer [facility] IM, Drug Active 019 Medical form: Center PDR/INJ, PRN, Dosing Weight 97.273, kg, PRN Blood Glucose Results, Start date: 12/31/18 14:40:00 PRESSURE WELDER, Duration: 30 day, Stop date: 01/30/19 14:39:00 PRESSURE WELDER, 0 Insulin Lispro Notes: (Same No Longer [facility] as: Humalog) Active 019 Medical Roll in Center palms of hands gently; Do not shake vigorously. WASTE: F/P - Black; E - Municipal Trash Bin Stable for 28 days at room temperature. Expires in days from __Date clopidogrel 75 75 mg, PO, No Longer [place] MG Oral Tablet Daily, 0 Active 019 Medical [Plavix] Refill(s) [place] Sodium Chloride 750 mL, No Longer [place] as 0.9% IV 750 mL Rate: 75 Active 019 Medical ml/hr, [place] Infuse over: 10 hr, Route: IV, Dosing Weight 97.273 kg, Total Volume: 750, Start date: 12/31/18 14:29:00 PRESSURE WELDER, Duration: 10 hr, Stop date: 01/01/19 0:28:00 PRESSURE WELDER, 2.04, m2, 0 Nitroglycerin Notes: (Same No Longer [facility] as:Nitroquic Active 019 Medical k, Center Nitrostat) "Do Not Crush" Sublingual tablet insulin degludec 14un, SUB-Q, Active [facility] Daily, 0 019 Medical Refill(s) [place] Insulin, Aspart, 4units, [place] Human [...] Weight 97.273, kg, Start date: 12/31/18 9:48:00 PRESSURE WELDER, Stop date: 12/31/18 9:48:00 PRESSURE WELDER rivaroxaban 20 20 mg = 1 Active [...] Center tab, 0 Refill(s) levothyroxine 150 Active [facility] 150 mcg (0.15 microgram = 015 Medica l mg) oral tablet 1 tab, PO, Cente r Daily, # 30 tab, 0 Refill(s) simvastatin 10 10 mg = 1 [place] mg oral tablet tab, PO, 015 Medical Bedtime, # Center 30 tab, 0 Refill(s) solifenacin 10 mg = 1 Active [facility] succinate 10 MG tab, PO, 015 Medical Oral Tablet Daily, # 30 Center [VESICARE] tab, 0 Refill(s) metoprolol 25 mg = 1 Active [facility] tartrate 25 mg tab, PO, 015 Medical oral tablet BID, # 180 Center tab, 0 Refill(s) Aspirin 81 MG 81 mg = 1 Active [facility] Enteric Coated tab, PO, 015 Medical Tablet Daily, # 0 Center tab, 0 Refill(s) Allergies, Adverse Reactions, Alerts Substance Category Reaction Severity Reaction Status Date Comments S ource type Reported sulfa drugs Assertion Drug Active [facility] Adhesive Assertion Drug Active [place] [facility] Immunizations No Data Provided for This Section Results Order Name Results Value Reference Date Interpretation Comments Marcelle rce Range CARDIAC Troponin-T 0.053 0.000 - 01/01 [facility] ENZYMES 0.100 [facility] CHEM PANEL Creatinine 0.86 0.50 - 01/01 [facility] Lvl 1.40 /2018 [facility] CHEM PANEL eGFR 63 01/01 Result Comment: [...] BMI. HEMATOLOGY Hgb 9.3 12.0 - 01/01 [facility] 16.0 [facility] HEMATOLOGY Hct 29.1 36.0 - 01/01 [facility] 48.0 [facility] BLOOD BANK ABO/Rh B POS 12/31 [facility] RESULTS /2018 [facility] BLOOD BANK Antibody Negative 12/31 [facility] RESULTS Scrn (12/31/18 9:27 AM) [facility] CARDIAC Troponin-T 0.070 0.000 - 12/31 [facility] ENZYMES 0.100 [facility] CHEM PANEL Glucose Lvl 155 70 - 99 12/31 [facility] CHEM PANEL BUN 34 7 - 22 12/31 [facility] CHEM PANEL Creatinine 1.02 0.50 - 12/31 [place] Lvl 1.40 [facility] CHEM PANEL Sodium Lvl 140 135 - 145 12/31 [facility] CHEM PANEL Potassium 3.8 3.5 - 5.1 12/31 [facility] CHEM PANEL Chloride Lvl 104 95 - 109 12/31 [facility] CHEM PANEL CO2 31 24 - 32 12/31 [facility] CHEM PANEL Calcium Lvl 9.3 8.5 - 10.5 12/31 [facility] CHEM PANEL eGFR 51 12/31 Result Comment: [...] 8.8 10.0 - 12/31 20. [facility] CHEM PANEL Magnesium 2.2 1.8 - 2.4 12/31 [facility] CHEM PANEL Phosphorus 3.1 2.5 - 4.5 12/31 [facility] HEMATOLOGY WBC 9.4 3.7 - 10.4 12/31 [facility] HEMATOLOGY RBC 3.92 4.20 - 12/31 [place] 5.40 [facility] HEMATOLOGY Hgb 10.2 12.0 - 12/31 [place] 16.0 [facility] HEMATOLOGY Hct 31.6 36.0 - 12/31 [place] 48.0 [facility] HEMATOLOGY MCV 80.7 80.0 - 12/31 [place] 98.0 /2019 [facility] HEMATOLOGY MCH 26.0 27.0 - 12/31 [place] 31.0 /2019 [facility] HEMATOLOGY MCHC 32.2 32.0 - 12/31 [place] 36.0 2019 [facility] HEMATOLOGY RDW 18.4 11.5 - 12/31 [place] 14.5 2019 [facility] HEMATOLOGY Platelet 224 133 - 450 12/31 [facility] HEMATOLOGY MPV 8.5 7.4 - 10.4 12/31 [facility] HEMATOLOGY PT 14.2 12.0 - 12/31 [place] 14.7 2019 [facility] HEMATOLOGY PTT 28.8 22.9 - 12/31 [place] 35.8 2019 [facility] HEMATOLOGY INR 1.12 0.85 - 12/31 [place] 1.17 /2018 [facility] HEMATOLOGY Segs 70.0 45.0 - 12/31 [place] 75.0 /2019 [facility] HEMATOLOGY Lymphocytes 20.5 20.0 - 12/31 [place] 40.0 2019 [facility] HEMATOLOGY Monocytes 8.7 2.0 - 12.0 12/31 [facility] HEMATOLOGY Eosinophils 0.6 0.0 - 4.0 12/31 [place] /2018 [facility] HEMATOLOGY Basophils 0.2 0.0 - 1.0 12/31 [facility] HEMATOLOGY Neutrophils 6.6 1.5 - 8.1 12/31 [place] # /2019 [facility] HEMATOLOGY Lymphocytes 1.9 1.0 - 5.5 12/31 [place] # /2018 [facility] HEMATOLOGY Monocytes # 0.8 0.0 - 0.8 12/31 [place] /2019 [facility] HEMATOLOGY Eosinophils 0.1 0.0 - 0.5 12/31 [place] # /2019 [facility] CARDIAC BNP 277 <=100 01/16 [facility] ENZYMES pg/mL [facility] CHEM PANEL Phosphorus 2.8 2.5 - 4.5 01/16 [facility] CHEM PANEL Magnesium 2.3 1.8 - 2.4 01/16 [facility] Lvl /2017 [facility] ELECTROLYTES AGAP 8.1 10.0 - 01/16 [place] 20.0 [facility] ELECTROLYTES eGFR 45 01/16 [facility] Comment: The Medical eGFR is Center calculated [...] - 10.5 01/16 [place] [facility] ELECTROLYTES CO2 29 24 - 32 01/16 [facility]2017 [facility] ELECTROLYTES Chloride Lvl 107 95 - 109 01/16 [place] [facility] ELECTROLYTES Potassium 3.1 3.5 - 5.1 01/16 [place] L[place] [facility] ELECTROLYTES Sodium Lvl 141 135 - 145 01/16 [place] as [facility] ELECTROLYTES Glucose Lvl 101 70 - 99 01/16 [place] [facility] ELECTROLYTES Creatinine 1.14 0.50 - 01/16 [facility] Lvl 1.40 [facility] ELECTROLYTES BUN 33 7 - 22 01/16 [facility] HEMATOLOGY INR 1.09 0.85 - 01/16 [place] 1.17 [facility] HEMATOLOGY PT 14.1 12.0 - 01/16 [place] 14.7 [facility] HEMATOLOGY PTT 25.6 22.9 - 01/16 [place] 35.8 [facility] HEMATOLOGY Platelet 159 133 - 450 01/16 [facility]2017 [facility] HEMATOLOGY MPV 9.1 7.4 - 10.4 01/16 [facility]2017 [facility] HEMATOLOGY MCHC 33.2 32.0 - 01/16 [place] 36.0 [facility] HEMATOLOGY RDW 14.6 11.5 - 01/16 [place] 14.5 [facility] HEMATOLOGY WBC 6.5 3.7 - 10.4 01/16 [facility] HEMATOLOGY RBC 3.98 4.20 - 01/16 [place] 5.40 [facility] HEMATOLOGY Hgb 12.3 12.0 - 01/16 [place] 16.0 [facility] HEMATOLOGY MCV 92.9 80.0 - 01/16 [place] 98.0 [facility] HEMATOLOGY Hct 37.0 36.0 - 01/16 [place] 48.0 [facility] HEMATOLOGY MCH 30.8 27.0 - 01/16 [place] 31.0 [facility] HEMATOLOGY Lymphocytes 1.5 1.0 - 5.5 01/16 [place] # [facility] HEMATOLOGY Segs 62.9 45.0 - 01/16 [place] 75.0 [facility] HEMATOLOGY Lymphocytes 23.2 20.0 - 01/16 [place] 40.0 [facility] HEMATOLOGY Neutrophils 4.1 1.5 - 8.1 01/16 [facility] HEMATOLOGY Monocytes # 0.8 0.0 - 0.8 01/16 [facility] HEMATOLOGY Basophils 0.5 0.0 - 1.0 01/16 [facility] HEMATOLOGY Eosinophils 0.1 0.0 - 0.5 01/16 [facility] # [facility] HEMATOLOGY Monocytes 12.0 2.0 - 12.0 01/16 [facility] HEMATOLOGY Eosinophils 1.4 0.0 - 4.0 01/16 [facility] BLOOD BANK Antibody Negative 06/26 [facility] RESULTS Scrn (06/26/14 5:48 AM) [facility] BLOOD BANK ABO/Rh B POS 06/26 [facility] RESULTS [facility] CHEM PANEL Magnesium 2.0 1.8 - 2.4 06/26 [facility] Lvl /2014 [facility] ELECTROLYTES AGAP 13.8 10.0 - 06/26 [place] 20.0 [facility] ELECTROLYTES eGFR 70 06/26 <sup>1</sup>Re [place] [...] - 10.5 06/26 [place] [facility] ELECTROLYTES Chloride Lvl 105 95 - 109 06/26 [place] [facility] ELECTROLYTES CO2 26 24 - 32 06/26 2014 [facility] ELECTROLYTES Potassium 3.8 3.5 - 5.1 06/26 [place] L[place] [facility] ELECTROLYTES Sodium Lvl 141 135 - 145 06/26 [facility] ELECTROLYTES Creatinine 0.8 0.5 - 1.4 06/26 [facility] as l [facility] ELECTROLYTES BUN 16 7 - 22 06/26 2014 [facility] ELECTROLYTES Glucose Lvl 143 70 - 99 06/26 <sup>2</sup>In terpretive Medical Data: Adult Center reference range values reflect the clinical guidelines<br/ >of the [place] [employer]. HEMATOLOGY Eosinophils 1.7 0.0 - 4.0 06/26 [facility] HEMATOLOGY Basophils 0.5 0.0 - 1.0 06/26 [facility] HEMATOLOGY Lymphocytes 20.0 20.0 - 06/26 [place] 40.0 [facility] HEMATOLOGY Monocytes 11.3 2.0 - 12.0 06/26 [facility] HEMATOLOGY Segs 66.5 45.0 - 06/26 [place] 75.0 [facility] HEMATOLOGY Eosinophils 0.1 0.0 - 0.5 06/26 [place] # [facility] HEMATOLOGY Segs-Bands # 4.7 1.5 - 8.1 06/26 [place] as [facility] HEMATOLOGY Lymphocytes 1.4 1.0 - 5.5 06/26 [place] # [facility] HEMATOLOGY Monocytes # 0.8 0.0 - 0.8 06/26 [place] /2014 [facility] HEMATOLOGY INR 1.08 0.85 - 06/26 <sup>4</sup>In [place] as 1.17 terpretive Medical Data: Center RECOMMENDED RANGES FOR PROTIME INR:
2.0-3.0 for most medical and surgical thromboembolic states.
2.5-3.5 for artificial heart valves and recurrent embolism.

INR SHOULD BE USED ONLY FOR PATIENTS ON STABLE ANTICOAGULANT THERAPY. HEMATOLOGY PT 14.1 12.0 - 06/26 14.7 [facility] HEMATOLOGY PTT 30.5 22.9 - 06/26 <sup>5</sup>In [place]riel as 35. terpretive Medical Data: [facility] Therapeutic Range: 57 - 92 [place] HEMATOLOGY MPV 9.1 7.4 - 10.4 06/26 [facility] HEMATOLOGY MCH 29.5 27.0 - 06/26 31.0 [facility] HEMATOLOGY MCV 89.3 80.0 - 06/26 [place] 98.0 /2014 [facility] HEMATOLOGY Platelet 195 133 - 450 06/26 [facility] HEMATOLOGY RDW 15.5 11.5 - 06/26 14.5 [facility] HEMATOLOGY MCHC 33.0 32.0 - 06/26 36.0 /2014 [facility] HEMATOLOGY WBC 7.1 3.7 - 10.4 06/26 [facility] HEMATOLOGY Hgb 12.7 12.0 - 06/26 16.0 [facility] HEMATOLOGY RBC 4.30 4.20 - 06/26 5.40 /2014 [facility] HEMATOLOGY Hct 38.4 36.0 - 06/26 48.0 /2014 [facility] LIPIDS CHD Risk 6.12 3.90 - 06/26 5.80 [facility] LIPIDS VLDL 77 06/26 [facility] LIPIDS LDL 51 <=99 mg/dL 06/26 [facility] (Calculated) /2014 [facility] LIPIDS HDL 25 >=61 mg/dL 06/26 [facility] LIPIDS Trig 386 <=149 06/26 mg/dL /2014 [facility] LIPIDS Chol 153 <=199 06/26 <sup>3</sup>Re [facility] mg/dL /2014 sult Comment: Medical Specimen Center Slightly Hemolyzed. Pathology Reports No Data Provided for This Section Diagnostic Reports No Data Provided for This Section Consultation Notes No Data Provided for This Section Discharge Summaries No Data Provided for This Section History and Physicals No Data Provided for This Section Vital Signs Vital Sign Value Date Comments Source Respitory Rate 27 01/01/2019 [facility]ce Center Systolic (mm Hg) 132 01/01/2019 [facility] dical Center Diastolic (mm Hg) 62 01/01/2019 [facility] edical Center Respitory Rate 15 01/01/2019 [facility] bruce Center Systolic (mm Hg) 140 01/01/2019 [facility] dical Center Diastolic (mm Hg) 64 01/01/2019 [facility] edical Center Respitory Rate 16 01/01/2019 [facility] bruce Center Systolic (mm Hg) 134 01/01/2019 [facility] dical Center Diastolic (mm Hg) 63 [facility]/01/2019 [facility] Temperature Oral (F) 99.5 F 01/01/2019 [facility] Height 147.32 cm 12/31/2018 [facility] Weight 97.273 12/31/2018 [facility] BMI Calculated 44.82 12/31/2018 [facility]ce Center Systolic (mm Hg) 124 01/16/2018 [facility] dical Center Diastolic (mm Hg) 61 01/16/2018 [facility] edical Center Respitory Rate 22 01/16/2018 [facility] bruce Center Systolic (mm Hg) 131 01/16/2018 [facility] dical Center Diastolic (mm Hg) 64 01/16/2018 [facility] edical Center Respitory Rate 15 01/16/2018 [facility]ce Center Systolic (mm Hg) 154 01/16/2018 [facility] dical Center Diastolic (mm Hg) 81 01/16/2018 [facility] edical Center Respitory Rate 18 01/16/2018 [facility] Center Temperature Oral (F) 97.5 F 01/16/2018 [facility] Height 157.48 cm 01/16/2018 [facility] Weight 96.818 01/16/2018 [facility] BMI Calculated 39.04 01/16/2018 [facility] Center Systolic (mm Hg) 161 06/26/2014 [facility] dical [place] Diastolic (mm Hg) 71 06/26/2014 [facility] [place] Systolic (mm Hg) 147 06/26/2014 [facility] dical Center Diastolic (mm Hg) 71 06/26/2014 [facility] Center Respitory Rate 16 06/26/2014 [facility] Systolic (mm Hg) 131 06/26/2014 [facility] dical [place] Diastolic (mm Hg) 62 06/26/2014 [facility] edical Center Respitory Rate 16 06/26/2014 [facility] Respitory Rate 16 06/26/2014 [facility] Weight 109.545 06/26/2014 [facility] Height 157.48 cm 06/26/2014 [facility] BMI Calculated 44.17 06/26/2014 [facility] Temperature Oral (F) 97.7 F 06/26/2014 [facility] Encounters Location Location Encounter Encounter Reason Attending ADM DC Stat us Source Details Type Number For Provider Date Date Visit [facility] [id number] [facility] 06/26 06/26 [facility] Outpatient Ricardo /2014 [facility] Outpatient [id number] [facility] 01/16 01/17 [facility] Ricardo /2017 [facility] Bedded [id number] [facility] 12/31 01/01 [facility] Outpatient Ricardo /2018 [facility] Procedures Procedure Code Date Perfomer Comments Source Back [id number] back surgery [facility]<sup>1</sup> with shaved Medical off spur Center Carpal tunnel [id number] [facility] Gallbladder [id number] [facility] Kidney stone [id number] [facility] Knee replacement [id number] [facility] Assessment and Plan No Data Provided for This Section Plan of Care No Data Provided for This Section Social History Social History Date Source Social History TypeResponse 06/26/2014 [facility] Alcohol Never Smoking Status Never smoker; Exposure to Tobacco Smoke None; Cigarette Smoking Last 365 Days No; Reg Smoking Cessation Counseling No entered on: 12/31/18 Family History No Data Provided for This Section Advance Directives No Data Provided for This Section Functional Status No Data Provided for This Section
--- OUTSIDE RECORDS SUMMARY | 2019-12-06 05:45 | XMS REPORT | Continuity of Care Document ---
:1935 Author Organization [facility] t Address [address] [place] Zhang [address] [place] [id number] Care Team Providers Name Role Phone Asked, Pcp Primary Care Physician Unavailable Leny PINEDA Attending Clinician Paty Magallanes MD Attending Clinician LENY Attending Clinician Unavailable Lab, Fam Pob I Attending Clinician Unavailable Jayashree Vasques MD Attending Clinician BENY Attending Clinician Unavailable Dilip Silva Attending Clinician STEPHANIE Attending Clinician Unavailable LENY Admitting Clinician Unavailable Dilip Silva Admitting Clinician Payers Payer Name Policy Policy Number Effective Expiration Source Type Date Date MEDICAREMEDICARE A xxxxxxxxxxx DONATO Packer B[facility]xxx[facility] MEDICAREMEDICARE PART A [id number] [place] AND 00:00:00 [facility] [id number] 2001[facility] Problems Condition Condition Condition Status Onset Resolution Last Treating Co mments Source Name Details Category Date Date Treatment Clinician Date CCL / LHC Diagnosis Active 2019-08-22 Memcristino W/ ERIKA 11-20 11:10:00 l PCI CCL / 00:00: Ceasar BESSY [facility] W/ 00 TO ASSI POSS PCI BESSY TO ASSI Active 11/20/2018 [facility] Acute deep Acute deep Disease [place] vein vein 4-18 Methodi thrombosis thrombosis 00:00: st (DVT) of (DVT) of 00 proximal proximal vein of vein of both lower both lower extremitie extremitie s s Acute Acute Disease Active [place] 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 00:00: st 00 AFIB Diagnosis Active 2017-022018-01-16 Mem oria 03-07 07:32:00 l AFIB 00:00: Ceasar 00 Active 01/05/2018 [facility] Electrolyt Electrolyt Disease Active 2017-02 [place] and e and 0-24 Methodi fluid fluid 00:00: st disorder disorder 00 Atrial Atrial Disease Active 2017-02 [place] fibrillati fibrillati 0-24 Me thodi on, on, 00:00: st persistent persistent 00 DX:ABDOMIN Diagnosis Active 2014-08-14 Memoria AL STRESS 06-25 12:24:00 l DYSPNEA 00:00: Ceasar DX:ABDOMIN 00 AL STRESS DYSPNEA Active 06/25/2014 [facility] Renal Renal Disease Active [facility] calculus calculus 3-05 [facility] - 00:[facility]: Medical 00 Ward Myopathy Myopathy Problem Active [facility] [place] [facility] Diabetic Diabetic Problem Active Unive rs polyneurop polyneurop it y of athy athy [place] [facility] Vitamin [facility] B[facility] B12 [place] [place] [facility] Pernicious Pernicious Problem Active [facility] anemia anemia [facility] [place] [facility] Post [facility] procedure procedure it[place] of discomfort discomfort [place] [facility] Swelling Swelling Problem Active [facility] [place] [facility] Arm pain Arm pain Problem Active [facility] [place] [facility] Atrial Problem Resolve 2019-01-03 Tarik mark fibrillati d 22:18:31 l on Atrial Ceasar (disorder) fibrillati on (disorder) Resolved Problem 01/03/2019 [facility] Diabetes Problem Resolve 2019-01-03 Me moria mellitus d 22:18:31 l (disorder) Diabetes He rmann mellitus (disorder) Resolved Problem 01/03/2019 [facility] Hyperchole Problem Resolve 2019-01-03 Memoria sterolemia d 22:18:31 l (disorder) Patrick n Hyperchole sterolemia (disorder) Resolved Problem 01/03/2019 [facility] Hypertensi Problem Resolve 2019-01-03 Memoria ve d 22:18:31 l disorder, Ceasar systemic Hypertensi arterial ve (disorder) disorder, systemic arterial (disorder) Resolved Problem 01/03/2019 [facility] Thyroid Problem Resolve 2014-06-29 Mem oria structure d 03:25:12 l (body Thyroid Ceasar structure) structure (body structure) Resolved Problem 06/29/2014 1hypo [facility] OTHER Diagnosis Active 2018-01-16 Mem oria FORMS OF 07:32:00 l DYSPNEA OTHER Ceasar FORMS OF DYSPNEA Active [facility] Unspecifie Problem 2017-022018-08-06 2018-08-06 Memoria d atrial 03-25 11:11:11 11:11:11 l fibrillati 04:33: Patrick n on Unspecifie 17 d atrial fibrillati on 01/23/2018 08/06/2018 [facility] Allergies, Adverse Reactions, Alerts Allergy Allergy Status Severity Reaction(s) Onset Inactive Treating Comm ents Source Name Type Date Date Clinician Sulfa Drug Active Swelling; [facility] (Sulfona Allergy 11-20 hives and Luke s - mide 00:00: itching Medical Antibiot 00 Center [facility]) Sulfasal Propensi Active Rash [place] to 9-10 Methodi adverse 00:00: st reaction 00 s to drug Adhesive Propensi Active Tears [place] to 2-25 skin Methodi adverse 00:00: st reaction 00 s to drug Adhesive Drug Active Tears [facility] Intolera 2-25 skin [facility] - nce 00:00: Medical 00 Center sulfa Allergy Active [facility] to drug ity of ([facility] Physici ans sulfa sulfa Active Memoria drugs drugs l [place] Adhesive Adhesive Active Memori a Tape Tape l [place] Family History Family Member Diagnosis Comments Start Date Stop Date Source Natural mother Cancer [facility] thodist [facility] Social History Social Habit Start Date Stop Date Quantity Comments Source Sex Assigned At [facility] Alcohol intake 2018-09-17 2018-09-17 Current [facility] thodist 00:00:00 00:00:00 non-drinker of alcohol (finding) Social History 2014-06-26 2014-06-26 [facility] 12:26:50 12:26:50 Smoking Status Start Date Stop Date Source Never sm[facility] Medications Ordered Filled Start Stop Current Ordering Indication Dosage Frequency Signature Comments Components Source Medication Medication Date Date Medication? Clinician (SIG) Name Name levothyroxi 2020-0 Yes 125ug QD Take [address] ne 9-24 mcg by [facility] - (SYNTHROID, 12:08: mouth Medic al LEVOTHROID) 02 daily . Cente r 150 MCG tablet metFORMIN 2020-0 Yes 500mg Take [address] (GLUMETZA) 9-24 mg by [facility] - 500 MG 12:08: mouth Medical (MOD) 24 hr 02 daily with Ce nter tablet breakfast. pantoprazol 2020-0 Yes 40mg QD Take [address] [facility] e 9-24 by mouth [facility] - (PROTONIX) 12:08: daily. Medic al 40 MG 02 Center tablet aspirin 81 2020-0 Yes 81mg QD Take [address] MG EC 9-24 by mouth [facility] - tablet 12:08: daily. Medical 02 Center furosemide 2020-0 Yes 80mg Q.5D Take [address] (LASIX) 80 9-24 by mouth 2 Rayne es - MG tablet 12:08: (two) Medical 02 times Center daily. rosuvastati 2020-0 Yes 10mg QD Take [address] n (CRESTOR) 9-24 by mouth Luke s - 10 MG 12:08: daily. Medical tablet 02 Center ferrous 2020-0 Yes 65mg Take [address] sulfate 325 9-24 by mouth Luke s - (65 FE) MG 12:08: daily with M edical tablet 02 breakfast. Center Famotidine 2018-02 No Notes: Memor ia 20 MG Oral 1-05 (Same as: l Tablet 15:00: Pepcid) [place] 00 Thyroxine 2018-02 No Notes: Memori a [...] n 1-05 (Same As: l 15:00: Crestor) [place] 00 Plavix 2018-02 No Notes: Memoria 1-05 (Same As: l 15:00: Plavix) Ceasar 00 Eliquis 2018-02 No Notes: Memoria 1-05 Same as: l 15:00: Eliquis [place] 00 clopidogrel 2018-02 Yes 75 mg = 1 M emoria 75 mg oral 1-05 tab, PO, l tablet 13:00: Daily, # Ceasar 00 90 tab, 3 Refill(s) Epinephrine 2018-02 No Route: Tarik mark 0.01 MG/ML 1-05 SUB-Q, l / Lidocaine 08:00: Dosing Herm ciaran Hydrochlori 00 Weight de 10 MG/ML 97.273, Injectable kg, ONCE, Solution Start date: 01/01/19 2:00:00 DENTURE PACKER, Stop date: 01/01/19 2:00:00 DENTURE PACKER insulin 2018-02 No insulin Memoria degludec 1-05 degludec, l 03:30: 14 unit, [place] 00 Route: SUB-Q, Daily, 12/31/18 21:30:00 DENTURE PACKER, Duration: 30 day, Stop date: 01/30/19 9:00:00 DENTURE PACKER, 0 Eliquis 2018-02 No 5 mg, Memoria 1-05 Route: PO, l 03:00: Drug form: Ceasar 00 TAB, Q12H, Dosing Weight 97.273, kg, Start date: 12/31/18 21:00:00 DENTURE PACKER, Duration: 30 day, Stop date: 01/30/19 9:00:00 DENTURE PACKER Humalog 2018-02 No Notes: Memoria 1-04 (Same as: l 23:28: Humalog) [place] 00 Roll in palms of hands gently; Do not shake vigorously . WASTE: F/P - Black; E - Municipal Trash Bin Stable for 28 days at room temperatur e. Expires in days from ____Date metoprolol 2018-02 No Notes: Memor ia tartrate -04 (Same as: l 23:00: Lopressor) Ceasar 00 Insulin, 2018-02 No Route: Memoria Aspart, 1-04 SUB-Q, l Human 22:30: TID-Before Patrick n 00 Meals, Dosing Weight 97.273, kg, Start date: 12/31/18 16:30:00 DENTURE PACKER, Duration: 30 day, Stop date: 01/30/19 11:30:00 DENTURE PACKER Dextrose 2018-02 No 12.5 gm, Memor ia 50% Syringe 03-02 25 mL, l 20:40: Route: Ceasar IVP, Drug Form: INJ, Dosing Weight 97.273, kg, PRN, PRN Blood Glucose Results, Start date: 12/31/18 14:40:00 DENTURE PACKER, Duration: 30 day, Stop date: 01/30/19 14:39:00 DENTURE PACKER, 0 Glucagon 2018-02 No 1 mg, Memoria 03-02 Route: IM, l 20:40: Drug form: Ceasar 00 PDR/INJ, PRN, Dosing Weight 97.273, kg, PRN Blood Glucose Results, Start date: 12/31/18 14:40:00 DENTURE PACKER, Duration: 30 day, Stop date: 01/30/19 14:39:00 DENTURE PACKER, 0 Insulin 2018-02 No Notes: Memoria Lispro [...] Total Volume: 750, Start date: 12/31/18 14:29:00 DENTURE PACKER, Duration: 10 hr, Stop date: 01/01/19 0:28:00 DENTURE PACKER, 2.04, m2, 0 Nitroglycer 2018-02 No Notes: Tarik mark in 03-02 (Same l 20:29: as:Nitroqu [place] 00 ick, Nitrostat) "Do Not Crush" Sublingual tablet insulin 2018-02 Yes 14un, Memoria degludec 03-02 SUB-Q, l 15:55: Daily, 0 [place] 00 Refill(s) Insulin, 2018-02 Yes 4units, Memori a Aspart, 03-02 SUB-Q, l Human 15:55: TID-Before Patrick n 00 Meals, 0 Refill(s) rosuvastati 2018-02 Yes 10 mg = 1 M emoria n 10 mg -04 tab, PO, l oral tablet 15:55: Daily, 0 He rmann 00 Refill(s) Famotidine 2018-02 Yes 20 mg = 1 Me moria 20 MG Oral 1-04 tab, PO, l Tablet 15:55: Daily, 0 Ceasar 00 Refill(s) 24 HR 2018-02 Yes 50 mg = 1 Memoria mirabegron 1-04 tab, PO, l 50 MG 15:55: Daily, # [place] Extended 00 30 tab, 0 Release Refill(s) Tablet [Myrbetriq] apixaban 5 2018-02 Yes 5 mg, PO, Me moria MG Oral 1-04 Q12H, 0 l Tablet 15:55: Refill(s) Patrick n [Eliquis] 00 Furosemide 2018-02 Yes 40 mg = 1 Me moria 40 MG Oral 1-04 tab, PO, l Tablet 15:55: BID, 0 [place] 00 Refill(s) Aspirin 325 2018-02 No 325 mg, 1 M emoria MG Oral 1-04 tab, l Tablet 15:48: Route: PO, Jenny nn 00 ONCE, Dosing Weight 97.273, kg, Start date: 12/31/18 9:48:00 DENTURE PACKER, Stop date: 12/31/18 9:48:00 DENTURE PACKER Cyanocobala Cyanocobala Yes SUUR INJECT 1 Univers min 1000 min 1000 6-28 BILICILER ML it y of MCG/ML MCG/ML 00:00: M.D. INTRAMUSCU Adriel as Injection Injection 00 LARLY ONCE Physici Solution Solution A MONTH ans apixaban 2019- No 5mg Q.5D Take 1 [place] [...] famotidine 2017-02- No 20mg Q.5D Take 1 Gilda ton (PEPCID) 20 0-29 10-29 tablet (20 M ethodi MG tablet 00:00: 23:59 mg total) st 00 :00 by mouth 2 (two) times a day. metoprolol Yes 12.5mg Q.5D 12.5 mg 2 M[place] tartrate 6-18 (two) Methodi (LOPRESSOR) 00:00: times a st 25 mg 00 day. tablet glimepiride Yes G[place] n (AMARYL) 1 5-18 Methodi MG tablet 00:00: st 00 levothyroxi Yes [place] ne 5-18 [facility] (SYNTHROID, 00:00: st LEVOXYL) 00 150 mcg tablet simvastatin Yes [place] (ZOCOR) 10 5-18 Methodi MG tablet 00:00: st 00 rivaroxaban Yes 20 mg = 1 M emoria 20 MG Oral 4-30 tab, PO, l Tablet 11:04: QPM, 0 [place] [Xarelto] 00 Refill(s) glimepiride Yes 1 mg = 1 Me moria 1 mg oral 4-30 tab, PO, l tablet 11:04: BID, # 30 Patrick n 00 tab, 0 Refill(s) lisinopril Yes 2.5 mg = 1 M emoria 2.5 mg oral 4-30 tab, PO, l tablet 11:04: Daily, # [place] 00 30 tab, 0 Refill(s) levothyroxi Yes [...] Jenny nn Tablet 00 tab, 0 Refill(s) albuterol Yes 1{puff} Inhale [address] (PROVENTIL 2-25 puff by [facility] - HFA;VENTOLI 17:35: mouth via M edical N HFA) 90 03 inhaler Center mcg/actuati every 6 on inhaler (six) hours as needed. amitriptyli Yes 25mg QD Take [address] ne (ELAVIL) 2-25 by mouth Luke s - 25 MG 17:35: nightly. Medical tablet 03 Center fenofibrate Yes 134mg Take [address] micronized 2-25 mg by Lukes - (LOFIBRA) 17:35: mouth Medical 134 MG 03 every Center capsule morning before breakfast. metoprolol Yes 25mg QD Take [address] (TOPROL-XL) 2-25 by mouth Luke s - 25 MG 24 hr 17:35: daily. Medi bruce tablet 03 Center glimepiride Yes 1mg Take [address] (AMARYL) 1 2-25 by mouth [facility]ukes - MG tablet 17:35: every Medical 02 morning Center before breakfast. lisinopril Yes 2.5mg QD Take 2.[address] (PRINIVIL,Z 2-25 mg by [facility]ukes - ESTRIL) 2.5 17:35: mouth Medic al MG tablet 02 daily. Ward simvastatin Yes 10mg QD Take [address] (ZOCOR) 10 2-25 by mouth [facility]ukes - MG tablet 17:35: nightly. Medi bruce 02 Ward omeprazole Yes 40mg QD Take [address] (PRILOSEC) 2-25 by mouth [facility]ukes - 40 MG 17:35: daily. Medical capsule 02 Ward multivitami Yes 1{capsu QD Take [address] n capsule 2-25 le} capsule by Luke s - 17:35: mouth Medical 02 daily. Ward CALCIUM Yes QD Take by [facility] CITRATE/VIT 2-25 mouth [facility]ukes - JACOBS D3 17:35: daily. Medical (CALCIUM 02 Ward CITRATE + D ORAL) rivaroxaban Yes 20mg QD Take [address] (XARELTO) 2-25 by mouth [facility]ukes - 20 mg Tab 17:35: daily. Medica l tablet 02 Ward darifenacin Yes 15mg QD Take [address] (ENABLEX) 2-25 by mouth [facility]ukes - 15 mg 24 hr 17:35: daily. Medi bruce tablet 02 Ward ERGOCALCIFE Yes QD Take by [facility] ROL, 2-25 mouth Lukes - VITAMIN D2, 17:35: daily. Medi bruce (VITAMIN D2 02 Center ORAL) Vital Signs Vital Name Observation Time Observation Value Comments Source Systolic blood 2019-11-21 161 mm[Hg] [facility] - pressure 16:28:00 [facility] Center Diastolic blood 2019-11-21 87 mm[Hg] [facility] - pressure 16:28:00 [facility] Heart rate 2019-11-21 54 /min [facility] - 16:28:00 [facility] Body temperature 2019-11-21 36.44 Danita [facility] - 16:28:00 [facility] Respiratory rate 2019-11-21 15 /min [facility] - 16:28:00 [facility] Oxygen saturation 2019-11-21 94 /min [facility] Rayne es - in Arterial blood 16:28:00 [place] nter by Pulse oximetry Body height 2019-11-21 149.9 cm [facility] - 12:11:00 [facility] Body weight 2019-11-21 91.037 kg [facility] - Measured 12:11:00 [facility] BMI 2019-11-21 40.54 kg/m2 [facility] - 12:11:00 [facility] BP Systolic 2019-04-11 99 mm[Hg] Location: [facility] 10:44:00 Position: [place] [facility] BP Diastolic 2019-04-11 60 mm[Hg] Location: [facility] 10:44:00 Position: [place] [facility] Height 2019-04-11 62 [in_us] [facility] 10:44:00 [place] [facility] Weight 2019-04-11 209 [lb_av] [facility] 10:44:00 [place] [facility] Body Mass Index 2019-04-11 38.23 kg/m2 University o f Calculated 10:44:00 [place] [facility] Heart Rate 2019-04-11 49 /min [facility] 10:44:00 [place] [facility] Respitory Rate 2019-01-01 [facility] Herm ciaran 12:15:00 Systolic (mm Hg) 2019-01-01 [facility] rmann 12:15:00 Diastolic (mm Hg) 2019-01-01 [facility] ermann 12:15:00 Respitory Rate 2019-01-01 [facility] Herm ciaran 11:00:00 Systolic (mm Hg) 2019-01-01 [facility] rmann 11:00:00 Diastolic (mm Hg) 2019-01-01 [facility] ermann 11:00:00 Respitory Rate 2019-01-01 [facility] ciaran 09:00:00 Systolic (mm Hg) 2019-01-01 [facility] He rmann 09:00:00 Diastolic (mm Hg) 2019-01-01 [facility] ermann 09:00:00 Temperature Oral 2019-01-01 99.5 F [facility] Rory rmann (F) 01:00:00 Height 2018-12-31 147.32 cm Geoffrey Goldmanan n 15:23:00 Weight 2018-12-31 Geoffrey Patrick n 15:23:00 BMI Calculated 2018-12-31 [facility] ciaran 15:23:00 BP Systolic 2018-08-23 120 mm[Hg] Location: [facility] :11: Position: [place] [facility] Sitting BP Diastolic 2018-08-23 52 mm[Hg] Location: [facility] 09:11:00 Position: [place] [facility] Sitting Height 2018-08-23 62 [in_us] [facility] 09:11:00 [place] [facility] Weight 2018-08-23 212 [lb_av] [facility] 09:11:00 [place] [facility] Body Mass Index 2018-08-23 38.78 kg/m2 University o f Calculated 09:11:00 [place] [facility] Temperature 2018-08-23 97.2 [degF] Method: Oral [facility] 09:11:00 [place] [facility] Heart Rate 2018-08-23 61 /min Location: [facility] 09:11:00 Apical; [place] [facility] Systolic (mm Hg) 2018-01-16 [facility] rmann 16:00:00 Diastolic (mm Hg) 2018-01-16 [facility] H ermann 16:00:00 Respitory Rate 2018-01-16 Memorial [...] rmann (F) 13:45:00 Height 2018-01-16 157.48 cm Geoffrey Goldmanan n 13:32:00 Weight 2018-01-16 Memorial Patrick n [...] 2014-06-26 [facility] c[facility] 15:30:00 Weight 2014-06-26 Geoffrey Goldmanan n 10:39:00 Height 2014-06-26 157.48 cm Geoffrey Nguyen n 10:39:00 BMI Calculated 2014-06-26 [facility]an 10:39:00 Temperature Oral 2014-06-26 97.7 F Memorial rmann (F) 10:30:00 Procedures Procedure Date / Time Performing Clinician Source Performed REPORT OF PROCEDURE - 2019-11-21 15:20:16 Abdias Michele [facility] [place] ERCP 2019-11-21 15:07:00 Leny Abdias [facility] ERCP,PAPILLOTOMY 2019-11-21 13:00:00 Abdias Michele [facility] PROCEDURE W/ C-ARM 2019-11-21 13:00:00 Abdais Michele [facility] ERCP,PANCREATIC STENT 2019-11-21 13:00:00 [facility] POCT-GLUCOSE METER 2019-11-21 12:25:00 [facility] MRI LUMBAR SPINE WO 2019-07-11 11:02:00 Estevan Vasques on [facility] CONTRAST [[facility]] VITAMIN B12 2019-04-11 00:00:00 [facility] Physicians [QLH] METHYLMALONIC ACID 2019-04-11 00:00:00 [facility] US Extremity upper 2018-08-27 00:00:00 [facility] (non-vascular) [id number] Physicians [QLH] INTRINSIC FACTOR 2018-08-24 00:00:[address] [facility] BLOCKING ANTIBODY Physicians [Q] PARIETAL CELL AB 2018-08-24 00:00:00 [facility] W/REFL TITER Physicians [UTP] EMG 2018-08-23 00:00:00 [place] [facility] Physicians [QLH] VITAMIN B12 2018-08-23 00:00:00 [facility] Physicians [QLH] VITAMIN B1, WHOLE 2018-08-23 00:00:00 [facility] BLOOD [facility] [QLH] VITAMIN B6 2018-08-23 00:00:00 [facility] Physicians [QLH] COPPER 2018-08-23 00:00:00 [place] [facility] Physicians [QLH] FOLATE, SERUM 2018-08-23 00:00:00 [facility] Physicians [QLH] Zinc Lvl 2018-08-23 00:00:00 [place] [facility] Physicians [QLH] SHARI PANEL, 2018-08-23 00:00:00 [facility] COMPREHENSIVE Physicians [QLH] HEMOGLOBIN A1c 2018-08-23 00:00:00 [facility] Physicians [QLH] IRON, TOTAL 2018-08-23 00:00:00 [facility] Physicians [QLH] METHYLMALONIC ACID 2018-08-23 00:00:00 [facility] Physicians [QL] SED RATE BY 2018-08-23 00:00:00 [facility] MODIFIED WESTERGREN Physicians [QLH] SJOGRENS ANTIBODIES 2018-08-23 00:00:00 [facility] (SS-A,SS-B[facility] Physicians [QLH] RHEUMATOID FACTOR 2018-08-23 00:00:00 [facility] [QL] C-REACTIVE PROTEIN 2018-08-23 00:00:00 Uni [facility] Physicians [QLH] CREATINE KINASE, 2018-08-23 00:00:00 [facility] TOTAL Physicians [QLH] CBC (INCLUDES 2018-08-23 00:00:00 [facility] DIFF/PLT) Physicians [QLH] T4, TOTAL 2018-08-23 00:00:00 [place] [facility] (THYROXINE) Physicians [QLH] TSH, 3RD GENERATION 2018-08-23 00:00:00 [facility] [place] W/REFLEX TO FT4 Physicians [QLH] VITAMIN E 2018-08-23 00:00:00 [facility] (TOCOPHEROL) Physicians [QLH] VITAMIN D, 2018-08-23 00:00:00 [facility] 25-HYDROXY, LC/MS/MS Physicians [QL] IMMUNOFIXATION, 2018-08-23 00:00:00 [facility] SERUM Physicians [QL] IMMUNOFIXATION, 2018-08-23 00:00:00 [facility] URINE Physicians [QLH] CMP W/EGFR 2018-08-23 00:00:00 [facility] Physicians [QL] PARANEOPLASTIC 2018-08-23 00:00:00 [facility] AUTOANTIBODY EVAL. S Physicians Back care<sup>1</sup> [facility] Carpal tunnel release [facility] Gallbladder excision [facility] Kidney stone analysis [facility] Knee replacement [facility] Plan of Care Planned Activity Planned Date Details Comments Source Future Scheduled 2019-10-[address] [facility] - Test 00:00:00 (#1) [code = Medical Center INFLUENZA VACCINE (#1)] Future Scheduled 2019-09-28 [place]FL[place] VACCINE [place] [facility] 00:00:00 [code = INFLUENZA VACCINE] Diagnostic Test 2018-08-23 [UTP] EMG [code = [facility] Pending 00:00:00 [UTP] EMG] Physicians Future Scheduled 2001[birth year]03-[address] [facility] - Test 00:00:00 WELLNESS (YEAR 2 or Medical Center FIRST YEAR if no IPPE) [code = MEDICARE ANNUAL WELLNESS (YEAR 2 or FIRST YEAR if no IPPE)] Future Scheduled 2000 65+ PNEUMOCOCCAL [place] [facility] Test 00:00:00 VACCINE (1 of 1 - PPSV23) [code = 65+ PNEUMOCOCCAL VACCINE (1 of 1 - PPSV23)] Future Scheduled [address]CCAL [address] - Test 00:00:00 LOW/MEDIUM RISK (1 of Medica l Center 2 - PCV13) [code = PNEUMOCOCCAL 65+ LOW/MEDIUM RISK (1 of 2 - PCV13)] Future Scheduled 1985 SHINGLES VACCINES [place] [facility] 00:00:00 (#1) [code = SHINGLES VACCINES (#1)] Future Scheduled 1945 DIABETIC FOOT EXAM [place] [facility] 00:00:00 [code = DIABETIC FOOT EXAM] Future Scheduled 1945 URINE MICROALBUMIN [place] [facility] 00:00:00 [code = URINE MICROALBUMIN] Future Scheduled 1935 DIABETIC RETINAL EYE Chandrika ston [facility] Test 00:00:00 EXAM [code = DIABETIC RETINAL EYE EXAM] Encounters Start End Encounter Admission Attending Care Care Encounter Source Date/Time Date/Time Type Type Clinicians Facility Department ID 2019-11-20 2019-11-20 Telephone Lab, [facility] [id number] 00:00:00 00:00:00 Fam Pob I Health [id number] [place] [id number] Professio [phone] [place] [address] [address] 2019-11-18 2019-11-18 Laboratory Lab, [facility] [id number] 09:18:59 09:38:59 Only Fam Pob I Health [id number] [place] [id number] Professio [phone] [place] [address] Office Building [facility] 2019-07-11 2019-07-11 Outpatient [facility] ER [id number] [place] 00:00:00 00:00:00 ESTEVAN 350 Method i 2019-07-11 2019-07-11 Outpatient [facility] ER [id number] [place] 00:00:00 00:00:00 ESTEVAN 469 Method i 2019-07-04 2019-07-04 Outpatient [facility] ER [id number] 202 [place] 00:00:00 00:00:00 ESTEVAN 695 Method i 2019-04-11 2019-04-11 AppointSHIMA Ybarra [facility] - [id number] [facility] 10:00:00 10:00:00 samuel QUINTEROS M.D. [facility] Last SWAN M.D. [facility] 2018-12-31 2019-01-01 Outpatient Ricardo, [facility] [id number] 09:04:00 08:40:00 Ayaan 02 [place] 2018-12-31 2018-12-31 Outpatient [facility] CAR [id number] [facility] 09:04:00 09:04:00 2018-12-13 2018-12-13 Appointmen SHIMA SW[facility] [id number] Univers 11:30:00 11:30:00 t; Jus QUINTEROS [place], [place] Jus QUINTEROS Physi ci ans 2018-11-15 2018-11-15 Appointmen SHIMA SWAN [facility] [id number] [facility] 11:00:00 11:00:00 t; Jus QUINTEROS [place], [place] Jus QUINTEROS Physi ci ans 2018-08-23 2018-08-23 Appointmen [facility] Neurology - [id number] [facility] 09:00:00 09:00:00 [facility] Physi ci ans 2018-08-23 2018-08-23 Appointmen SHIMA BROWN Neurology - [id number] Univers 09:00:00 09:00:00 t; ARI BROWN [place] [facility] [facility] [place], [facility].D. [facility] 2018-01-16 2018-01-16 [id number] 07:20:00 23:59:00 Ayaan 01 Dilip 2014-06-26 2014-06-[address] [facility] [id number] 05:24:00 12:04:00 Ayaan 00 Cherry Results Test Description Test Test Results Result Source Time Comments Comments [place], ERCP 2019-10 Reason for Fluoroscopic unit -24 exam:->abno utilized for a 15:07:0 rmal procedure 0 imaging performed in the OR. No interpretation was requested. Refer to the operative report for findings. Refer to PACS for patient radiation dose information. [place] Endoscopic Retrograde 2019-10 Interface, [facility] Cholangiopancreatography -24 External Ris In - [facility] - 15:07:0 11/21/2019 3:27 Medical 0 PM CDTFluoroscopic Center unit utilized for a procedure performed in the OR. No interpretation was requested. Refer to the operative report for findings. Refer to PACS for patient radiation dose information. POC-Glucose meter 2019-11-21 12:36:00 Test Item Value Reference Range Interpretation Comme nts POC-Glucose Meter (test code = 166 mg/dL 70-110 H : TESTED AT [facility] [address]) [facility], 770 30: Repairer Hairspring/Techni pete ID = [id number] for DINO PEREZ Lab Interpretation (test code = Abnormal 66750-2) [facility] [id number] 12:36:00 Test Item Value Reference Range Interpretation Comments POC-GLUCOSE METER 166 mg/dL 70-110 H : TESTED A T [facility] [address] (BEAKER) (test code = BERTNE R [facility], 1538) [address]: Repairer Hairspring/Techni pete ID = [id number] for RANDY MCCOLLUM MRI Lumbar Spine Wo Ewrgpzhp0733-00-13 12:12:50Hm Interface, Radiology Results 07/11/2019 12:15 PM CDTEXAMINATION: MRI LUMBAR SPINE WO CO NTRASTCLINICAL HISTORY: M48.062 Spinal stenosis lumbar region with neurogenic claudication, PAINCOMPARISON: MRI lumbar spine dated August 18, 2016TECHNIQUE: Multiplanar multisequence noncontrast enhanced examination was performed of the Lumbar spine.FINDINGS:Numbering assumes that the last visualized functional disc to be L5-S1.There is kyphosis at L2. There are some chronic right-sided wedging deformities at L2 and L3 and left-sided wedging deformity at L4-L5 from the scoliosis. There is approximately 30 degrees leftward curvature centered at L2- 3.There is leftward listhesis of L3 and rightward [...] slightly progression prior exam. Disc osteophyte complex andfacet spurring results in moderate right foraminal narrowing with circumferential effacement of the p eroneal fat and mild abutment of the exiting nerve root. Left foramen is patent. The right foraminalnarrowing appears progressed.L2-L3: There is diffuse disc bulge with facet and ligamentum flavum hypertrophy with moderate narrowing of the canal and lateral recesses which is slightly progressed. Discosteophyte complex and facet spurring results in moderate [...] narrowing of the canal and lateral recesses. La minectomy changes are noted. Disc osteophyte complex and [...] grossly stable.The partially visualized upper sacrum is unremarkable.IMPRESSION: There is scoliosis and multilevel spondylosis resulting in significant lateral recess and foraminal stenoses as detailed above. Findings are progressed at multiple levels as detailed above.[facility]-[id number] [facility]] METHYLMALONIC [id number] 12:09:00 Test Item Value Reference Interpretation Comments Range METHYLMALONIC ACID 438 87-318 This test was developed and (test code = nmol/L its analytical METHYLMALONIC performancecha racteristics ACID) have been deter mined by Client[address] [address] [facility] Cent[facility]ydia pham. It has not beencleared or approved by FDA. This assay has been validatedpursua nt to the CLIA regulations and is used for clinicalpurpose s.SPECIMEN RECEIVED DATE A ND TIME: [facility]] VITAMIN [id number] 12:09:00 Test Item Value Reference Range Interpretation Comments VITAMIN B12 (test 744 pg/ml 200-1100 N SPECIMEN R ECEIVED DATE code = VITAMIN B12) AND TIME : [facility] PhysiciansCARDIAC [id number] 10:08:000.053[facility] HermannCHEM JLCGB9860-05-80 10:08:000.86[facility] HermannCHEM LVQVB8747-41-44 10:08:0063[facility] NlidyskFELTQNNCOA7821-19-65 10:08:009.3[facility] WEHZSHXPBU9272-76-52 10:08:0029.1[facility] HermannBLOOD BANK HRNSMVD8017-80-50 15:27:00Negative (12/31/18 9:27 AM)[facility] HermannCARDIAC BJUFWWG5982-08-63 15:27:000.070[facility] HermannCHEM JMNAN4909-74-50 15:27:44198Nbxmreny [place] CHEM QPJCQ6258-84-71 15:27:0034[facility] HermannCHEM VICTN9630-64-26 15:27:001.02 [facility]annCHEM KOQBZ5115-60-39 15:27:49123Ocuypdhq HermannCHEM PANEL 2018-12-31 15:27:003.8[facility] HermannCHEM UDMSA9937-75-17 15:27:93346Tfqyardw HermannCHEM UDOHA2142-43-10 15:27:0031[facility] HermannCHEM YQWWL7875-37-95 15:27:009.3[facility] HermannCHEM WDFJR5828-89-13 15:27:0051[facility] HermannCHEM FTVIV2089-25-20 15:27:008.8[facility] HermannCHEM OLBDJ3024-39-63 15:27:002.2 [facility]annCHEM WZPIL7667-53-78 15:27:003.1[facility] HermannHEMATOLOGY 2018-12-31 15:27:009.4[facility] AgbcrlkMIZZOFEWOQ3709-40-62 15:27:003.92[facility] YpzftxzKFGDOSBZZP8821-72-66 15:27:0010.2[facility] UqibdeeNRQPIKVTBS3964-36-00 15:27:0031.6[facility] QbjrxniWSVRPTEAOO5608-23-99 15:27:0080.7[facility] ICFUBHMRSV9231-44-73 15:27:00 Test Item Value Reference Range Interpretation Comments MCH (test code = MCH) 26.0 pg 27.0-31.0 [facility] ZzhorsnNMPCTHWRHJ2671-45-14 15:27:0032.2[facility] HermannHEMATOLOGY 2018-12-31 15:27:0018.4[facility] YeclqphARVSSUMDVL2622-21-37 15:27:25263Gqvhtxxc LzmfwyoFDWUMTIGLM1737-86-77 15:27:008.5[facility] GmuxtosPIKYDHXYGP9603-18-03 15:27:00 Test Item Value Reference Range Interpretation Comments PT (test code = PT) 14.2 s 12.0-14.7 [facility] UwxxgxhKAMWHOEQQA0354-36-78 15:27:00 Test Item Value Reference Range Interpretation Comments PTT (test code = PTT) 28.8 s 22.9-35.8 [facility] ImfvgvoSOVHNIDSGK8959-00-65 15:27:00 Test Item Value Reference Range Interpretation Comments INR (test code = INR) 1.12 1 0.85-1.17 [facility] RvwybrbNYFGFLARJP5386-01-86 15:27:0070.0[facility] HermannHEMATOLOGY 2018-12-31 15:27:0020.5[facility] TelhfhpYIMLLYKIGE6022-01-63 15:27:008.7[facility] OkljpfkRJCDIZSLVA3018-11-41 15:27:000.6[facility] EglaqysZSTVTXRNVP3822-52-29 15:27:000.2[facility] LqjslxvDLAGCCJKSB5722-36-69 15:27:006.6[facility] CJONFUGZQU6567-26-82 15:27:001.9[facility] OzudjmeCNMPTCCSKG5574-46-13 15:27:000.8 [facility] QhpsbafOGKBDJUFFS3928-00-06 15:27:000.1[facility] Ceasar[H] Immunofixation Eletrophoresis [id number] 15:40:01 Test Item Value Reference Range Interpretation [...] test result s and concur with the resident'isrealter pretati on. CPT 93675-SBHjyetry mariana Signature Todd Lyons MD 0 08/27/18 14:55 PM [facility]] HEMOGLOBIN [id number] 13:54:01 Test Item Value Reference Range Interpretation Comments Hemoglobin A1c; Above High Threshold 9.0 % <=5.6 (test code = 4548-4) [facility]] VITAMIN D, 25-HYDROXY, LC/MS/[id number] 13:54:01 Test Item Value Reference Range Interpretation Comments Vitamin D, 25-OH, 33.8 ng/ml 30.0-100.0 Reference range is based Total (test code on recommen dations in the = Vitamin D, EndocrineSociet y Clinical 25-OH, Total) Practice Guide line (J Clin Endocrinol Wramu1090;96:19 11-1930) [facility]] FOLATE, [id number] 13:54:01 Test Item Value Reference Range Interpretation Comments Folate Level (test code = 2284-8) 30.4 ng/ml >=3.0 [facility]] TSH, 3RD GENERATION W/REFLEX TO FT4 2018-08-23 13:54:01 Test Item Value Reference Range Interpretation Comments TSH (test code = 28917-4) 0.422 {uIU/ml} 0.360-3.740 [facility]] VITAMIN [id number] 13:54:01 Test Item Value Reference Range Interpretation Comments Vitamin B12 Level; Below Low 108 pg/ml 254-1320 Threshold (test code = 2132-9) [facility]] T4, TOTAL (THYROXINE)2018-08-23 13:54:01 Test Item Value Reference Range Interpretation Comments Thyroxine (test code = 3026-2) 10.1 ug/dL 4.7-13.3 [facility]] RHEUMATOID [id number] 13:54:01 Test Item Value Reference Range Interpretation Comments Rheumatoid Factor Quantitative (test <10 0-20 code = 63809-5) [facility]] CMP [id number] 13:54:01 Test Item Value Reference Range Interpretation Comments Sodium Level 141 {mEq/l} 135-145 (test code = 2951-2) Potassium Level 4.5 {mEq/l} 3.5-5.1 (test code = 2823-3) Chloride Level 105 {mEq/l} 95-109 (test code = 2075-0) Carbon Dioxide; 12 {mEq/l} 24-32 Below Low Threshold (test code = 8-9) AGAP; Above High 28.5 {mEq/l} 10.0-20.0 Threshold (test code = 60597-4) Glucose Lvl; 168 mg/dl 70-99 Adult reference range Above High values reflect the Threshold (test clinical desiree delinesof the code = 2345-7) [employer]. Creatinine Lvl 1.30 mg/dl [...] by susanna myrick correction repo rt. Faxresult [id number] cted from 1.0 g/dL [LOW] on 08/24/18 10:45: 16 CDT by Susanna King. Globulin (test 3.2 g/dl 2.7-4.2 instrument er ror. repeat code = 03262-0) ALB level at 08/24/2018 10:44 by Ugo Rodriguez at 08/24/2018 10:44 by susanna walker bout correction repo rt. Faxresult [id number] cted from 5.7 g/dL [HI] o n 08/24/18 10:45:16 CDT by Susanna King. A/G Ratio (test 1.1 0.7-1.6 instrument e rror. repeat code = 1759-0) ALB level at 08/24/2018 10:44 by Ugo Rodriguez at 08/24/2018 10:44 by susanna walker bout correction repo rt. Faxresult [id number] cted from 0.2 [LOW] on 10:45:16 CDT by Susanna King. Calcium Level 9.1 mg/dl 8.5-10.5 Total (test code = 85177-8) ALT (test code = 33 u/l 0-65 1743-4) AST (test code = 19 u/l 0-37 83223-9) Alk Phos (test 124 u/l 39-136 code = 1783-0) Bili Total (test 0.4 mg/dl 0.2-1.3 code = 1975-2) eGFR (test code = 38 The eGFR i s calculated 89708-7) {ML/MIN/1.7} using the CKD-E PI formula. In [...] National Kidney Disease Education Progr am(NKDEP) which tea castillo recommends that when the eGFR is used in patientswith ex tremes of body mass index for purposes of arabella g dosing, the eGFR should be multiplied by t he estimated BMI. [facility]] IRON, [id number] 13:54:01 Test Item Value Reference Range Interpretation Comments Iron (test code = 2498-4) 47 ug/dL 30-160 [facility]] CREATINE KINASE, [id number] 13:54:01 Test Item Value Reference Range Interpretation Comments Creatine Kinase (test code = 2157-6) 61 u/l 12-191 [facility]] C-REACTIVE [id number] 13:54:01 Test Item Value Reference Range Interpretation Comments CRP (test code = CRP) <2.[address] [facility]] SED RATE BY MODIFIED [id number] 13:54:01 Test Item Value Reference Range Interpretation Comments SED RATE BY MODIFIED Cancel Reason: QNS SHAD (test code = SED RATE BY MODIFIED WESTERGREN) [facility]] Ippdzsfbhvot8591-29-28 13:54:01 Test Item Value Reference Range Interpretation Comments Segmented Neutrophils; Above High 80.2 % 45.0-75.0 Threshold (test code = 73386-1) Monocytes (test code = 00477-2) 7.5 % 2.0-12.0 Lymphocytes; Below Low Threshold 12.1 % 20.0-40.0 (test code = 30548-4) Eosinophils (test code = 34714-7) 0.2 % 0.0-4.0 Basophils (test code = 706-2) 0.0 % 0.0-1.0 Segs-Bands # (test code = 7.9 {K/CMM} 1.5-8.1 59723-9) Lymphocytes # (test code = 1.2 {K/CMM} 1.0-5.5 96409-4) Monocytes # (test code = 59542-4) 0.7 {K/CMM} 0.0-0.8 Eosinophils # (test code = 0.0 {K/CMM} 0.0-0.5 60879-8) Basophils # (test code = 20788-2) 0.0 {K/CMM} 0.0-0.2 [facility]] CBC (INCLUDES DIFF/PLT)2018-08-23 13:54:01 Test Item Value Reference Range Interpretation Comments WBC (test code = 6690-2) 9.8 {K/CMM} 3.7-10.4 RBC; Below Low Threshold (test 3.54 {M/CMM} 4.20-5.40 code = 789-8) Hgb; Below Low Threshold (test 10.9 g/dl 12.0-16.0 code = 718-7) Hct; Below Low Threshold (test 34.5 % 36.0-48.0 code = 10062-5) MCV (test code = 787-2) 97.5 fL 80.0-98.0 MCH (test code = 785-6) 30.7 pg 27.0-31.0 MCHC; Below Low Threshold (test 31.5 g/dl 32.0-36.0 code = 786-4) RDW; Above High Threshold (test 17.5 % 11.5-14.5 code = 788-0) Platelet (test code = 97078-7) 257 {K/CMM} 133-450 Mean Platelet Volume (test code 9.7 fL 7.4-10.4 = 26520-6) [facility]] SJOGRENS ANTIBODIES (SS-A,SS-B)2018-08-23 13:54:01 Test Item Value Reference Range Interpretation Comments SS-A (Ro) Antibody (test code = 5351-2) <0.2 <=0.9 SS-b (La) Antibody (test code = 5353-8) <0.2 <=0.9 [facility]] VITAMIN B1, WHOLE [id number] 13:54:01 Test Item Value Reference Range Interpretation Comments Vitamin B1 109.8 66.5-200.0 This test was d eveloped and its Level (test nmol/L performance code = characteristics determined by Vitamin B1 [facility]. It has not been Level) cleared orappro katerine by the Food and Drug Administration. Performed At: [facility] [id number] ra Felipe PINEDA Ph:[phone] [facility][H] Vitamin E [id number] 13:54:01 Test Item Value Reference Range Interpretation Comments Alpha-Tocoph 17.3 mg/L 9.0-29.0 This test was d eveloped and its anna (test performance code = characteristics determined by Alpha-Tocoph [facility]. It has not been cleared anna) orapproved by [facility] [employer] and Drug Administration. Gamma-Tocoph 1.8 mg/L 0.5-4.9 This test was d eveloped and its anna (test performance code = characteristics determined by Gamma-Tocoph [facility]. It has not been cleared anna) orapproved by [facility] Food and Drug Administration. Reference intervals for a lpha and gamma-tocophero ldetermined from National Health and Nutrition ExaminationSurv , 3235-7113. Individuals wit h alpha-tocophero l levelsless than 5.0 mg/L are co nsidered vitamin E deficient.Per formed At: [address] [id number] Wang MD Ph:[phone] [facility]] VITAMIN [id number] 13:54:01 Test Item Value Reference Range Interpretation Comments Vitamin B6 11.2 {UG/L} 2.0-32.8 This test was d eveloped and its Level (test performance code = characteristics determined by Vitamin B6 [facility]. It has not been Level) cleared orappro katerine by the Food and Drug Administration. Performed At: [facility] [id number] Wang MD Ph:[phone] [facility]] Zinc [id number] 13:54:01 Test Item Value Reference Range Interpretation Comments Zinc Level 64 ug/dL 56-134 This test was d eveloped and its (test code = performance Zinc Level) characteristics determined by [facility]. It has not been cleared orapproved by [facility] Food and Drug Administration. D etection Limit = 5Performed At: [facility] [id number] Sanjai MD Ph:[phone] [facility]] SHARI PANEL, [id number] 13:54:01 Test Item Value Reference Range Interpretation Comments Antinuclear Antibody Negative Negative Because the SHARI was Screen (test code = Negative , the Reflex 86642-5) assays for Anti-dsDNA, SM/ POWER PLANT ELECTRICIAN, Martha/La (SSA/S SB) were not perfor med. [facility][H] Immunofixation [id number] 13:54:01 Test Item Value Reference Interpretation Comments [...] cur with the resident's inte rpretation. CPT 79040-R CElectronic Signature Todd Lyons MD 08/27/18 14: 43 PM [facility]] METHYLMALONIC [id number] 13:54:01 Test Item Value Reference Interpretation Comments Range Methylmalonic 7915 nmol/L 0-378 Acid Quantitative (test code = Methylmalonic Acid Quantitative) U Org Acid Comment This test was d eveloped and Disclaimer ([place]) its perform ance (test code = U characteristi csdetermined by Org Acid [facility]. It has not been Disclaimer ([place])) cleared or approved by the Food and Drug Administration. Performed At: [facility] [place] [address] [facility] [place] [id number] ra Felipe PINEDA Ph:[phone] e presence of metabolites in physiological fluids [...] id, oxalic acid, glycolic acid,glycerol and others. [facility][H] Paraneoplastic Autoantibody Evaluation 2018-08-23 13:54:01 Test Item Value Reference Interpretation Comments Range IRENE-1 (test code Negative <1:240 = IRENE-1) IRENE-2 (test code Negative <1:240 ---------ADDITIONA = IRENE-2) L INFORMATION---- --This test was developed and its perform ance characteristics determined by [facility] in a manner consistent with CLIArequirement s. This test has not been cl eared or approved bythe U.S. Food and Drug Administra tion. IRENE-3 (test code Negative <1:240 ---------ADDITIONA = IRENE-3) L INFORMATION---- --This test was developed and its perform ance characteristics determined by [facility] in a manner consistent with CLIArequirement s. This test has not been cl eared or approved bythe U.S. Food and Drug Administra tion. AGNA-1 (test code Negative <1:240 ---------ADDITIONA = AGNA-1) L INFORMATION---- --This test was developed and its perform ance characteristics determined by [facility] in a manner consistent with CLIArequirement s. This test has not been cl eared or approved bythe U.S. Food and Drug Administra tion. FRENCH TUTOR-1 (test code = Negative <1:240 --------- ADDITIONA FRENCH TUTOR-1) L INFORMATION---- --This test was developed and its perform ance characteristics determined by [facility] in a manner consistent with CLIArequirement s. This test has not been cl eared or approved bythe .S. Food and Drug Administra tion. FRENCH TUTOR-2 (test code = Negative <1:240 --------- ADDITIONA FRENCH TUTOR-2) L INFORMATION---- --This test was developed and its perform ance characteristics determined by [facility] in a manner consistent with CLIArequirement s. This test has not been cl eared or approved bythe .S. Food and Drug Administra tion. FRENCH TUTOR-3 (test code = Negative <1:240 --------- ADDITIONA FRENCH TUTOR-3) L INFORMATION---- --This test was developed and its perform ance characteristics determined by [facility] in a manner consistent with CLIArequirement s. This test has not been cl eared or approved bythe U.S. Food and Drug Administra tion. Amphiphysin Ab Negative <1:240 ------ADDITIONA (test code = L Amphiphysin Ab) INFORMATION- --This test was developed and its perform ance characteristics determined by [facility] in a manner consistent with CLIArequirement s. This test has not been cl eared or approved bythe U.S. Food and Drug Administra tion. CRMP-5 IgG (test Negative <1:240 --------ADDITIONA code = CRMP-5 IgG) L INFORMATION---- --This test was developed and its perform ance characteristics determined by [facility] in a manner consistent with CLIArequirement s. This test has not been cl eared or approved bythe .S. Food and Drug Administra tion. Striated Muscle Ab Negative <1:120 --------- ADDITIONA (test code = L Striated Muscle INFORMATION- Ab) --This test was developed and its perform ance characteristics determined by [facility] in a manner consistent with CLIArequirement s. This test has not been cl eared or approved bythe U.S. Food and Drug Administra tion. Calcium Channel Ab 0.00 nmol/L <=0.02 --------- ADDITIONA P/Q-Type (test L code = Calcium INFORMATION-- Channel Ab --This test was developed P/Q-Type) and its perform ance characteristics determined by [facility] in a manner consistent with CLIArequirement s. This test has not been cl eared or approved bythe U.S. Food and Drug Administra tion. Diagnosis PNH 0.00 nmol/L <=0.03 -----ADDITIONA (test code = L Diagnosis PNH) INFORMATION-- --This test was developed and its perform ance characteristics determined by [facility] in a manner consistent with CLIArequirement s. This test has not been cl eared or approved bythe U.S. Food and Drug Administra tion. ACHr Binding Ab 0.00 nmol/L <=0.02 -------ADDITIONA (test code = ACHr L Binding Ab) INFORMATION---- --This test was developed and its perform ance characteristics determined by [facility] in a manner consistent with CLIArequirement s. This test has not been cl eared or approved bythe .S. Food and Drug Administra tion. AChR Ganglionic 0.00 nmol/L <=0.02 -------ADDITIONA Neuronal Ab (test L code = AChR INFORMATION---- Ganglionic --This test was developed Neuronal Ab) and its perform ance characteristics determined by [facility] in a manner consistent with CLIArequirement s. This test has not been cl eared or approved bythe U.S. Food and Drug Administra tion. Neuronal (V-G) 0.00 nmol/L <=0.02 ------ADDITIONA K+Channel Ab (test L code = Neuronal INFORMATION- (V-G) K+Channel --This test was developed Ab) and its perform ance characteristics determined by [facility] in a manner consistent with CLIArequirement s. This test has not been cl eared or approved bythe U.S. Food and Drug Administration. Performed At: [facility] [address] [place] [id number] david Hernandez Ph:[phone] Paraneoplastic Ab Comment No informa tive Interp [...] and its perfor azucena characteristics determined by [facility] in a manner consistent with CLIArequirement s. This test has not been cl eared or approved bythe U.S. Food and Drug Administra tion. [facility]] [id number] 13:54:01 Test Item Value Reference Range Interpretation Comments Copper Level (test code Cancel Reason: Other = Copper Level) (see comments) [facility] PhysiciansCARDIAC [id number] 15:30:58426Diyvmefh HermannCHEM QHLLM9725-53-16 15:30:002.8[facility] HermannCHEM QGXDJ1569-82-59 15:30:002.3[facility] HsizqfhDBETGTIJQWGN2011-37-25 15:30:008.1[facility] WRMJUGLVFFDR1040-10-47 15:30:0045[facility] VawvmjdXSZLCODMGCIN3701-44-49 15:30:00 8.2Memorial AhgcnxuCGDNXSSQFKGG3411-88-68 15:30:0029Mem[facility] HermannELECTROLYTES 2018-01-16 15:30:54505Ymjbguuu PiacrwsCZQNPDZVKLEP7049-41-93 15:30:003.1[facility]orial GivmecqJHNMGMFDYJXS7513-48-40 15:30:21805Gcprdgad TeahvrnAPHTCWGFCBHM7139-39-94 15:30:19389Eaubnqau ZbincfdGIDXZBADVKAJ2506-06-78 15:30:001.14[facility] PTYXMAMRLZUE3522-18-17 15:30:0033[facility] PxaibsrBLXBYRUGCD0600-55-06 15:30:00 Test Item Value Reference Range Interpretation Comments INR (test code = INR) 1.09 1 0.85-1.17 [facility] System [id number] 15:30:00 Test Item Value Reference Range Interpretation Comments PT (test code = PT) 14.1 s 12.0-14.7 [facility] LhfhadpAWIHIGCNCX3507-55-46 15:30:00 Test Item Value Reference Range Interpretation Comments PTT (test code = PTT) 25.6 s 22.9-35.8 [facility] GxwkffzONAGBFCGRN7595-48-32 15:30:09964Flprxmfj HermannHEMATOLOGY 2018-01-16 15:30:009.1[facility] TiwloirXRIDLQVNMM7800-97-42 15:30:0033.2[facility] VlwilmjKBDDCWVYLZ3284-76-97 15:30:0014.6[facility] CsaamdkALSPDRNUDO3213-03-04 15:30:006.5[facility] HpyefcoYTOQOENOMJ6633-91-91 15:30:003.98[facility] Ceasar MKZHOKVNYU8365-11-87 15:30:0012.3[facility] OgharxmOIHXSTRJYQ5825-84-96 15:30:00 92.9[facility] ItrqreoOWKWXWQFRD3460-45-86 15:30:0037.0[facility] HermannHEMATOLOGY 2018-01-16 15:30:00 Test Item Value Reference Range Interpretation Comments MCH (test code = MCH) 30.8 pg 27.0-31.0 [facility] NlkcdtsVCTYQTFPXN5281-93-32 15:30:001.5[facility] HermannHEMATOLOGY 2018-01-16 15:30:0062.9[facility] UkrvvriNKMAENSMYN0373-71-24 15:30:0023.2[facility] HxlfrzhARHOQWFMVB0367-73-12 15:30:004.1[facility] FbyfeayHYWRDAGMEQ2570-76-31 15:30:000.8[facility] NnbrnnmWWRKYJDFGZ5962-69-93 15:30:000.5[facility] [place] ZTKNYAPKKO1198-51-58 15:30:000.1[facility] FhqratoKFVHTSGTAB6439-88-96 15:30:00 12.0[facility] AahhllzFMEIYOQJJE5151-09-47 15:30:001.4[facility] HermannBLOOD BANK RULGHRM4255-43-29 10:48:00Negative (06/26/14 5:48 AM)[facility] HermannCHEM PANEL 2014-06-26 10:48:002.0[facility] IgqjvkfJYDNNGHCFLRH3096-59-13 10:48:0013.8 [facility] DywtivkDIHYHAUIXBQP6200-25-40 10:48:0070[facility] HermannELECTROLYTES 2014-06-26 10:48:008.8[facility] TadpaviAMNCPLUPUMNK9245-71-15 10:48:82775Xydghshk GsymermKBUACHAHBYDA2765-40-94 10:48:0026[facility] DopmffyUHELZOZAZBRT3903-73-92 10:48:003.8[facility] XmmgshfZAFGEJYVCKAC9466-44-85 10:48:97107Pflzyelr Ceasar HBTVQOHVGTXR3616-01-19 10:48:000.8[facility] EobabwwUBAWTVMIVPQD7775-26-96 10:48:0016[facility] CntxzvbPQZTRFIYRKBD3121-11-24 10:48:44507Fbdghvth [place] KYUTVIHPHZ7059-43-64 10:48:001.7[facility] HottoppDPRVPOXXHR3148-91-06 10:48:000.5 [facility] FioldtaCPPUDMFROZ6280-64-35 10:48:0020.0[facility] HermannHEMATOLOGY 2014-06-26 10:48:0011.3[facility] DwwxfpuOXMUXQDXVX1803-47-26 10:48:0066.5[facility] SbxyywnNHCXCWYYKE1731-47-34 10:48:000.1[facility] YuftwvpZLPTFAAAUU0873-83-11 10:48:004.7[facility] EcfvutjKGXGNGKFOE0990-77-58 10:48:001.4[facility] [place] OKULQIRBPT1455-29-03 10:48:000.8[facility] OoiciqjFRGDIHJBYG3297-39-21 10:48:00 1.08[facility] IqghzxjAGVBRTGXHF4767-33-01 10:48:00 Test Item Value Reference Range Interpretation Comments PT (test code = PT) 14.1 s 12.0-14.7 [facility] OjpkbxeYADHSPZGCV5466-29-96 10:48:00 Test Item Value Reference Range Interpretation Comments PTT (test code = PTT) 30.5 s 22.9-35.8 [facility] PhsrpepJBCVTKZEEN9068-54-07 10:48:009.1[facility] HermannHEMATOLOGY 2014-06-26 10:48:00 Test Item Value Reference Range Interpretation Comments MCH (test code = MCH) 29.5 pg 27.0-31.0 [facility] TulwzuhWZLDGPQEBK5550-46-07 10:48:0089.3[facility] HermannHEMATOLOGY 2014-06-26 10:48:54869Uhjxsowm ZafxefiISYRHWRYNT5701-49-82 10:48:0015.5[facility] BoowrlqPNYPWXXZYE4803-19-49 10:48:0033.0[facility] IukhuaaQLQSRLNZKU5308-88-83 10:48:007.1[facility] XvrcvkrOXZNAFOSRD3746-48-71 10:48:0012.7[facility] [place] DCAQNGENNA0526-44-45 10:48:004.30[facility] EqivfuqOQAYPTCXAK8901-75-90 10:48:00 38.4[facility] SlfacqlTAXFQU4414-92-59 10:48:006.12[facility] HermannLIPIDS 2014-06-26 10:48:0077[facility] RptxcofMXKNBO5327-34-57 10:48:0051[facility] RZWFLT7681-21-06 10:48:0025[facility] GtfqesnWGLRJQ2718-58-70 10:48:92414Pefmokmr IflkpfvNDAZCV1883-94-53 10:48:37022Nktregwc [place]
--- OUTSIDE RECORDS SUMMARY | 2019-12-06 05:45 | XMS REPORT | Summary of Care ---
:1935 Author Organization [facility] - [facility] Address [address] [place] [address] Care Team Providers Name Role Phone Rose Goodman MD Primary Care Provider Reason for Visit Reason Comments LAB covid Encounter Details Date Type Department Care Team Description 11/18/2019 Laboratory Only [facility] [place], HR SPECIALIST [address] [address] Suspected Covid-19 [facility], Adc Fam Pob I Virus Infection [address] [place] [address] (Primary D x) [place] [address] Allergies Not on Filedocumented as of this encounter (statuses as of 11/18/2019) Medications Not on filedocumented as of this encounter (statuses as of 11/18/2019) Active Problems Not on filedocumented as of this encounter (statuses as of 11/18/2019) Social History Tobacco Use Types Packs/Day Years Used Date Never Assessed Sex Assigned at Date Recorded Not on file COVID-19 Exposure Response Date Recorded In the last month, have you been in contact with No / Unsure 11/18/2019 9:24 AM CDT someone who was confirmed or suspected to have Coronavirus / COVID-19? documented as of this encounter Last Filed Vital Signs Not on filedocumented in this encounter Nursing Notes Mis Reddy RN - 11/18/2019 11:20 AM CDTEdawnshea Juárez is a 84 year old female here for COVID Screening with a Nasopharyngeal Swab All droplet and contact precautions taken with appropriate PPE worn while interacting with patient. ? Goggles ? N95 Mask ? Gloves ? Gown RR 16 Pulse Ox 97% Patient educated on plan of care for visit, swabbing technique, risks and benefits of test and length of time to receive results. Verbal consent obtained to perform test. CDC Fact Sheet for Patients nCoV Diagnostic Panel dated 05/12/2019 and Factsheet What to Do if Sick with COVID 19 04/22/19 provided. Patient swabbed per appropriate nasopharyngeal technique, and patient tolerated well. Patient was discharged from the testing clinic in stable condition. Mis Reddy RN 11/18/2019 9:21 AM documented in this encounter Plan of Treatment Name Type Priority Associated Diagnoses Order S chedule COVID-19 (PCR MOLECULAR LAB Routine Suspected Covid-1 9 Virus Expected: 11/18/2019, TESTING) Infection Expires: 2020 Health Maintenance Due Date Last Done Comments Depression Screening 1947 DTaP,Tdap,and Td Vaccines (1 - Tdap) 1954 Zoster Recombinant Vaccine (SHINGRIX) (1 of 2) 1985 Medicare Wellness Visit 2000 Osteoporosis Screening 2000 PNEUMOCOCCAL VACCINES 65+ (1 of 1 - PPSV23) 2000 INFLUENZA VACCINE (#1) 2019 documented as of this encounter Results Not on filedocumented in this encounter Visit Diagnoses Diagnosis Suspected Covid-19 Virus Infection - [facility] documented in this encounter Additional Health Concerns Infection Onset Date Last Indicated Resolved Time COVID-19 Rule Out 11/18/2019 11/18/2019 documented as of this encounter Insurance Payer Benefit Plan / Subscriber ID Effective Dates Phone Addre ss Type Group MEDICARE MEDICARE PART [id number] 2000-Amadeo [phone] t [address] [id number] LANA PARIKH [id number] documented as of this encounter
--- OUTSIDE RECORDS SUMMARY | 2019-12-06 05:45 | XMS REPORT | Summary of Care ---
:1935 Author Organization [facility] - [facility] Address [address] [place] [address] Care Team Providers Name Role Phone Rose Goodman MD Primary Care Provider Reason for Visit Reason Comments Results Forms Encounter Details Date Type Department Care Team Description 11/20/2019 Telephone [facility] - Lab, Adc Fa m Pob I Results; Forms [address] [place] [address] Allergies Not on Filedocumented as of this encounter (statuses as of 11/23/2019) Medications Not on filedocumented as of this encounter (statuses as of 11/23/2019) Active Problems Not on filedocumented as of this encounter (statuses as of 11/23/2019) Social History Tobacco Use Types Packs/Day Years [...] Signs Not on filedocumented in this encounter Miscellaneous Notes Telephone Encounter - Mara Waddell LVN - 11/23/2019 9:07 AM CDT Called and spoke to daughter. Taken care of yesterday elephone Encounter - Ayaan Mays - 11/20/2019 9:13 AM CDTEsoraya Juárez is a 84 year old female The patient's daughter is calling in stating that per the order that the patient brought with her for the coivd test, results were supposed to be faxed to her doctor. Please fax if able and contact nicolleughter. [phone] signed by Ayaan Mays at 11/20/2019 9:15 AM CDTdocumented in this encounter Plan of Treatment Health Maintenance Due Date Last Done Comments Depression Screening 1947 DTaP,Tdap,and Td Vaccines (1 - Tdap) 1954 Zoster Recombinant Vaccine (SHINGRIX) (1 of 2) 1985 Medicare Wellness Visit 2000 Osteoporosis Screening 2000 PNEUMOCOCCAL VACCINES 65+ (1 of 1 - PPSV23) 2000 INFLUENZA VACCINE (#1) 2019 documented as of this encounter Results Not on filedocumented in this encounter Insurance Payer Benefit Plan / Subscriber ID Effective Dates Phone Addre ss Type Group MEDICARE MEDICARE PART [id number] 2000-Amadeo [phone] [address] Medicare A & B t 2 [id number] MOULTRIELANA [id number] documented as of this encounter
[2019-12-06] MEDS ORDERED: ONDANSETRON 4 MG/2 ML VIAL IV PRN (06:04)
[2019-12-06] MEDS ORDERED: MORPHINE 2 MG/ML SYR IV PRN (06:04)
[2019-12-06] MEDS ORDERED: FENTANYL CITR 100 MCG/2 ML ONE (06:24)
[2019-12-06 07:18] LABS: Basophils % 0.3 % (0-1.3); Hematocrit 41.6 % (36.0-45.0); Lymphocytes % 4.5 % (15.3-44.8); MPV 9.4 fL (7.6-11.3); RBC Red Blood Cell Count 4.53 M/uL (3.86-4.86)
[2019-12-06] MEDS ORDERED: GLUCAGON 1 MG/VIAL IM PRN ×2 (07:38→09:10)
[2019-12-06] MEDS ORDERED: D50W 25 GM/50 ML SYRINGE/VIAL IV PRN ×2 (07:38→09:10)
[2019-12-06] MEDS ORDERED: Levofloxacin500mg IV 500 MG/100 ML BAG IV SCH ×2 (07:39→08:00)
[2019-12-06 07:41] LABS: Bilirubin Total 1.7 mg/dL (0.2-1.0); Protein, Total 6.8 g/dL (6.4-8.2)
[2019-12-06 07:57] LABS: Blood Morphology Comment NOT SEEN (NOT SEEN); Platelet Estimate ADEQ
[2019-12-06] MEDS ORDERED: NA CHLORIDE 0.9% 1,000 ML IV SCH (08:00)
[2019-12-06] MEDS: METRONIDAZOLE 500mg IVPB 500 MG/100 ML BAG IV SCH ×2 (08:16→17:30)
[2019-12-06] MEDS: INSULIN -REGULAR HUMAN 50 UNIT/0.5 ML ML SQ SCH ×4 (08:17→20:43)
[2019-12-06] MEDS: KCL 20 MEQ/100 mL IVPB 20 MEQ/100 ML BAG IV SCH ×2 (09:00→11:00)
[2019-12-06] MEDS ORDERED: METRONIDAZOLE 500mg IVPB 500 MG/100 ML BAG IV SCH (09:00)
[2019-12-06] MEDS ORDERED: INSULIN GLARGINE 100 UNITS/ML SQ ONE (09:30)
--- NOTE | 2019-12-06 10:23 | RAD REPORT ---
EXAM DESCRIPTION: CT Abdomen and Pelvis With Intravenous Contrast CLINICAL HISTORY: The patient is 84 years old and is Female; ABD PAIN TECHNIQUE: Axial computed tomography images of the abdomen and pelvis with intravenous contrast. S agittal and coronal reformatted images were created and reviewed. This CT exam was performed using one or more of the following dose reduction techniques: automated exposure control, adjustment of t he mA and/or kV according to patient size, and/or use of iterative reconstruction technique. COMPARISON: CT abdomen and pelvis October 11, 2019. FINDINGS: Lung bases: Unremarkable. No mass. No consolidation. Mediastinum: Small hiatal hernia. ABDOMEN: Liver: Unremarkable. No mass. Gallbladder and bile ducts: Biliary stent noted, new. Common bile duct dilatation is slightly de creased. No definite choledocholithiasis. Pancreas: No findings to suggest acute pancreatitis. Pancreas is unchanged. Spleen: Unremarkable. No splenomegaly. Adrenals: Unremarkable. No mass. Kidneys and ureters: Areas of cortical atrophy in the kidneys bilaterally, greatest in the right kidney. This is unchanged in the prior study. No hydronephrosis or ureter stone. Stomach and bowel: Colonic diverticulosis. No bowel dilatation or obstruction. No bowel wall thickening. PELVIS: Appendix: No findings to suggest acute appendicitis. Bladder: Mild anterior bladder wall thickening, unchanged. Reproductive: 2.6 cm right ovarian cyst, unchanged. Uterus is present. Left adnexa is unremarkable. ABDOMEN and PELVIS: Intraperitoneal space: Unremarkable. No free air. No significant fluid collection. Bones/joints: Multilevel degenerative changes in the spine with scoliosis. No acute fracture vis ualized. No dislocation. Soft tissues: Unremarkable. Vasculature: Unremarkable. No abdominal aortic aneurysm. Lymph nodes: No pathologically enlarged lymph nodes. IMPRESSION: 1. Biliary stent noted, new. Common bile duct dilatation is slightly decreased. No def inite choledocholithiasis. 2. No findings to suggest acute pancreatitis. Pancreas is unchanged. 3. 2.6 cm right ovarian cyst, unchanged. No follow-up imaging is recommended. 4. Mild anterior bladder wall thickening, unchanged. Correlate clinically for cystitis/UTI. 5. Colonic diverticulosis. 6. Small hiatal hernia. 7. Areas of cortical atrophy in the kidneys bilaterally, greatest in the right kidney. This is unch anged compared with the prior study. No hydronephrosis or ureter stone. 8. Additional non-emergent findings as above. Electronically signed by: Mara Singh MD 12/06/2019 3:59 AM CDT Due to temporary technical issues with the PACS/Fluency reporting system, reports are being signed by the in house radiologist without review as a courtesy to ensure prompt reporting. The interpreting r adiologist is fully responsible for the content of the report.
--- NOTE | 2019-12-06 10:49 | RAD REPORT ---
EXAM DESCRIPTION: RAD - Abdomen 1 View (KUB) - 12/06/2019 10:27 am CLINICAL HISTORY: abd pain Pain COMPARISON: Abdomen 1 View (KUB) dated 10/12/2019; Abdomen 1 View (KUB) dated 10/11/2019; Abdomen Pe lvis W Contrast dated 12/06/2019 FINDINGS: Several stacked small bowel loops are seen in the left abdomen. Significant fecal retentio n is seen. Several additional central and right-sided bowel loops appear mildly dilated. No gross paige dence of pneumoperitoneum. IMPRESSION: A mild developing adynamic ileus is a possibility.
--- NOTE | 2019-12-06 11:09 | HP ---
Date of Admission: 12/06/2019 Chief Complaint: Abdominal pain, nausea, vomiting. History Of Present Illness: This is an 84-year-old female patient who lives with her family, started to have abdominal pain about 2 days ago, and it subsided on its own without any further intervention . She was subsequently doing fine until last night she started to have recurrence of this abdominal pain associated with nausea and vomiting, so family brought her to emergency room, and after she was evaluated in the ER, she was admitted to the hospital. When I saw her this morning, she was uncomfor table because of her abdominal pain, which is described as intermittent pain, mostly in the lower abd omen. She has history of chronic constipation, which is under good control and family reports that s he did have bowel movement yesterday as well as day before yesterday. No reports of any diarrhea. Allergies: SULFA AND ADHESIVE TAPE. Medications: List reviewed. Review of Systems: GI: As mentioned above. Skin: Mottled appearance of lower half of both legs and bilateral feet, which is chronic due to circ ulation problem as described by patient's daughter. All other systems reviewed and are negative. Past Medical History: Significant for hypertension, diabetes mellitus, biliary stricture, peripheral vascular disease, chronic diastolic congestive heart failure, chronic atrial fibrillation, gastroeso phageal reflux disease, hyperlipidemia, hypothyroidism, and depression. Past Surgical History: The patient had a biliary stent placed by Dr. Michele. This was last month f or stricture of bile duct. Patient's daughter reports that this is a permanent stent. Significant f or cholecystectomy. Social History: Negative for smoking or alcohol use. Family History: Not pertinent. Physical Examination: Vital Signs: Temperature this morning 96.8, pulse 95, respiratory rate 19, blood pressure 152/87, ox ygen saturation 97%. General: Awake, alert, oriented, not in distress. HEENT: Head atraumatic, normocephalic. Conjunctivae nonerythematous. Sclerae white. Mouth, no thr ush or edema noted. Ears/Nose, no mass, lesion, discharge noted. Neck: Supple. No JVD, lymph nodes, bruit, thyromegaly noted. Lungs: Bilateral good equal air entry. Clear to auscultation. No rhonchi. No rales. Heart: Normal heart sounds, no murmur or gallop. Abdomen: Abdomen appears to be protuberant, which family describes as her baseline and no significan t change from the baseline. The patient has mild tenderness in lower abdomen. No rebound tenderness . Bowel sounds present. No hepatosplenomegaly. No bruit. Extremities: Lower half of both legs and feet shows mottled appearance of bilateral leg skin and thi s is unchanged from her baseline as reported by patient's daughter. Skin: No rash, ulcer, cellulitis. Lymphatics: No lymph node enlargement in neck, supraclavicular, infraclavicular region. Neuro: No focal neurological deficit. Chest: Unremarkable. External Genitalia: Deferred. Rectal: Deferred. Laboratory Data: CAT scan of abdomen and pelvis done in emergency room shows presence of biliary felisa nt. No evidence of acute pancreatitis, presence of diverticulosis, small hiatal hernia, mild anterio r bladder wall thickening, unchanged, 2.6 cm right ovarian cyst, unchanged. No acute surgical findin g noted. White count when she came into emergency room around midnight was 10.9, hemoglobin 13.4, pl atelets 244. This morning, white count 22.9, hemoglobin 13.1, platelets . Her chemistry w hen she came into ER at midnight, sodium 133, potassium 3.7, chloride 94, bicarb 28, BUN 35, creatini ne 1.92, glucose 617. SGOT 44, SGPT 54, total bilirubin 0.8, direct bilirubin 0.4, lipase 423, alkal ine phosphatase 218, albumin 3.3. Serum acetone negative. This morning, hemoglobin A1c 10.7. Sodiu m 138, potassium 3, chloride 99, bicarb 26, BUN 37, creatinine 1.81, glucose 419, magnesium 2. Total bilirubin 1.7, SGOT 61, SGPT 55, alkaline phosphatase 205, lipase 212. Impression: 1.Abdominal pain. 2.Rule out acute diverticulitis. 3.Rule out cholangitis. 4.Diabetes mellitus, type 2, uncontrolled. 5.Acute kidney injury. 6.Volume depletion. 7.Hypokalemia. 8.Hypertension. 9.Chronic diastolic congestive heart failure. 10.Chronic atrial fibrillation. 11.Gastroesophageal reflux disease. 12.Peripheral vascular disease. Plan: Admit patient to hospital for further evaluation and management of this problem. Patient is a ppropriate for inpatient and is expected to spend 2 midnights in hospital. She received IV fluid claudia us in the emergency room and we will give another IV fluid bolus this morning of 500 cc. Maintenance IV will be continued per order. Diabetes will be managed with sliding scale insulin and Lantus 15 u nits subcutaneous injection was ordered to be given this morning. We will repeat x-ray of abdomen th is morning and take antibiotic Levaquin and Flagyl was started this morning. We will place a [place] c atheter to monitor strict intake, output, as well as obtain urinalysis and sent it for urine culture as well. DVT prophylaxis will be given per order. Details and plan of treatment discussed with the patient, daughter and who was at bedside. I will see her tomorrow for followup. I have advi sed the patient's daughter to make sure that the patient does follow up with Dr. Michele as he had starr ggested for endoscopic ultrasound to be done after that biliary stent placement and the patient's nita ter has reported that she has been trying to contact his office to schedule that appointment, and s he will continue to do so upon discharge from the hospital. ELIA/MODL Voice ID: [id number]
[2019-12-06 11:12] LABS: Urine Appearance CLOUDY; Urine Bilirubin NEGATIVE (NEG); Urine Blood TRACE (NEG); Urine Color YELLOW; Urine Glucose 3+ (NEG); Urine Protein TRACE (NEG); Urine Specific Gravity >=1.030 (1.005-1.030)
[2019-12-06 11:30] LABS: Urine Microscopic Reflex ORDER UMIC
[2019-12-06 11:32] LABS: Urine Bacteria LOADED /HPF (<20); Urine Culture Reflex Order REFLEXED; Urine RBC <5 /HPF (NONE SEEN)
[2019-12-06 11:34] VITALS: BMI 5708.4
[2019-12-06] MEDS ORDERED: PROMETHAZINE INJ 25 MG/ML AMP IV PRN (14:32)
[2019-12-06] MEDS: NA CHLORIDE 0.9% 1,000 ML IV SCH ×2 (14:33→22:56)
[2019-12-06] MEDS ORDERED: BENZOCAINE SPRAY 57 GM BTL TOP ONE (15:19)
[2019-12-06] MEDS ORDERED: LIDOCAINE JELLY 2%- 5 ML TUBE TOP ONE ×2 (15:24→17:00)
[2019-12-06] MEDS ORDERED: LIDOCAINE JELLY 2%- 5 ML TUBE MM ONE (16:00)
[2019-12-06] MEDS ORDERED: LIDOCAINE VISCOUS 2% SOLN 15 ML UDC PO ONE (16:00)
--- NOTE | 2019-12-06 16:58 | RAD REPORT ---
EXAM DESCRIPTION: RAD - Chest Single View - 12/06/2019 4:44 pm CLINICAL HISTORY: verify n/g placement COMPARISON: October 15 TECHNIQUE: AP portable chest image was obtained 12/06/2019 4:44 pm . FINDINGS: Single portable semi upright film was obtained following placement of an NG tube. The NG t ube extends through the right mainstem bronchus into the right lung base. Cardiac silhouette is enlarged. Vasculature and lung markings are prominent. IMPRESSION: NG tube is in the bronchial tree with the tip extending through the right main stem bron chus into the right lung base. Ordering physician is aware of the aberrant tube placement.
[2019-12-06] MEDS ORDERED: ENOXAPARIN 40 MG/0.4 ML SQ SCH (17:00)
--- NOTE | 2019-12-06 18:52 | RAD REPORT ---
EXAM DESCRIPTION: RAD - Chest Single View - 12/06/2019 6:44 pm CLINICAL HISTORY: NGT placement COMPARISON: Chest December 05 TECHNIQUE: AP portable chest image was obtained 12/06/2019 6:44 pm . FINDINGS: Supine image has substantial motion degradation. NG tube has been removed from the airway. NG tube extends below the diaphragm. Tip is in the proximal stomach. Side hole of the tubing is not identifiable due to motion. IMPRESSION: NG tube has been placed. Tip extends below the diaphragm into the proximal stomach.
[2019-12-06 19:40] LABS: Bilirubin Total 1.7 mg/dL (0.2-1.0); Magnesium 1.9 mg/dL (1.8-2.4); Potassium 3.9 mmol/L (3.5-5.1); Protein, Total 6.7 g/dL (6.4-8.2)
[2019-12-06] MEDS ORDERED: NA CHLORIDE 0.9% 1,000 ML IV ONE ×3 (20:14→21:04)
--- NOTE | 2019-12-06 20:30 | CON ---
Date of Consultation: 12/06/2019 Reason For Consultation: Abdominal pain. History Of Present Illness: The patient is an 84-year-old female, who I have known from previous enc ounters dealing with wounds mostly, who was in her usual state of health up until 2 days ago when she started having abdominal pain, nausea, and vomiting. The pain improved over the last couple days; h owever, last night, the pain as well as nausea and vomiting recurred and she was brought to the ER an d was admitted for further evaluation and work up. I was consulted. She is awake and alert, complai gila of some difficulty breathing because of abdominal distention and nausea. She did have a bowel m ovement last night. She was passing gas last night and this morning. However, she does have a stron g history of constipation, for which she is on a bowel regimen, which according to the family she bernard s not always follow. No sore throat, runny nose, cough, headaches, or dizziness. No chest pain. No fever or chills. Review of Systems: Otherwise unremarkable. Past Medical History: Significant for hypertension, diabetes, biliary stricture, peripheral vascular disease, chronic diastolic congestive heart failure, chronic atrial fibrillation, GERD, hyperlipidem ia, hypothyroidism, depression. Past Surgical History: Cholecystectomy, stent placed for stricture of the bile duct recently. Allergies: SULFA. Social History: The patient does not smoke or drink alcohol. Family History: Noncontributory. Physical Examination: Vital Signs: Currently stable, however, the pulse rate is slightly elevated between 106 to 108. She is afebrile. General: She is awake, alert, and oriented x3. Head and Neck: Cranial nerves 2 through 12 are grossly within normal limits. No neck masses. No JV D. Throat clear. Neck is supple. Chest: Clear. Heart: S1, S2. Abdomen: Soft, slightly distended. There is a hardness to the abdomen, left of midline, and there i s tenderness more on the left side. There is minimal rebound. No rigidity or guarding. There is so me tenderness in the lower abdomen as well. Extremities: Adequately perfused. Nontender. Neurologic: Nonfocal. Laboratory Data: On admission, white count was 10.9, this morning it was 22.9; there is a left shift ; H and H are within normal limits; platelets are 245. Chemistry shows elevated glucose, hypokalemia , CO2 is 26, BUN and creatinine are 37 and 1.81. Alkaline phosphatase is 205, AST is 61, albumin is 3.0. Urinalysis shows white cells are 5-10, bacteria's are loaded, the culture has been reflexed, ho carmen, the nitrite is negative and esterase is negative. CT of the abdomen and pelvis done last nigh t and read by the nighthawk, reveals biliary stent placed, common bile duct dilatation is slightly de creased, no choledocholithiasis, no acute pancreatitis, there is a 2.6 cm right ovarian cyst, there i s mild anterior bladder wall thickening, correlate clinically cholecystitis to UTI, colonic diverticu losis, cortical atrophy of the kidneys bilaterally. This is unchanged. No acute findings noted. Devin morales, the patient had an abdominal x-ray today, which showed the impression is mild developing adyna jose ileus, however, the findings are several stacked small bowel loops are seen in the left abdomen, significant fecal retention is seen, several additional central and right-sided bowel loops appear mi ldly dilated, no gross evidence of pneumoperitoneum. Assessment: An 84-year-old female with multiple medical problems with abdominal pain, nausea, vomiti ng, etiology unclear, but I am concerned about internal herniation or internal volvulus with small symone wel secondary to adhesions. Recommendations: Continue IV antibiotics, NG tube. We will discuss the case with Dr. Mcclellan. We w ill go ahead and get a repeat CT of the abdomen and pelvis to see if we can better elucidate the etio logy of the patient's clinical condition, following which I will make further recommendations. In meantime, the patient does need serial abdominal exam. We will follow this patient closely. Plan of care discussed with the family as well as Dr. Mcclendon. SEAN/JON Voice ID: [id number] Report ID: [id number]
[2019-12-06 20:43] LABS: Absolute Lymphocytes (CBC) 1.1 K/uL (0.7-4.9); Basophils % 0.4 % (0-1.3); Hematocrit 40.5 % (36.0-45.0); Lymphocytes % 14.4 % (15.3-44.8); MPV 9.7 fL (7.6-11.3)
[2019-12-06] MEDS ORDERED: FAMOTIDINE 20 MG/2 ML VIAL IV SCH (21:00)
[2019-12-06] MEDS ORDERED: Meropenem 1000 MG/VIAL IV SCH (21:00)
[2019-12-06] MEDS ORDERED: NA CHLORIDE 0.9% 1,000 ML ONE ×2 (21:52→23:06)
[2019-12-06] MEDS ORDERED: Phenylephrine HCl 10 MG/ML 1 ML VIAL ONE (23:34)
[2019-12-06] MEDS ORDERED: D5W 250 ML IV ONE (23:35)
[2019-12-07] MEDS ORDERED: EPINEPHRINE/PF 1 MG/ML AMP ONE ×3 (00:43→00:54)
[2019-12-07] MEDS ORDERED: D5W 1,000 ML IV ONE (00:43)
[2019-12-07] MEDS ORDERED: NA CHLORIDE 0.9% 250 ML ONE ×2 (00:50→03:30)
[2019-12-07] MEDS: EPINEPHrine 4 MG in NA CHLORIDE 0.9% 250 ML IV PRN ×2 (01:30→05:23)
[2019-12-07] MEDS: METRONIDAZOLE 500mg IVPB 500 MG/100 ML BAG IV SCH (01:30)
[2019-12-07] MEDS ORDERED: METRONIDAZOLE 500mg IVPB 500 MG/100 ML BAG IV ONE (01:30)
[2019-12-07] MEDS ORDERED: FENTANYL CITR 100 MCG/2 ML IV PRN (02:10)
[2019-12-07] MEDS ORDERED: HALOPERIDOL LACT 5 MG/ML INJ IV PRN (02:10)
[2019-12-07] MEDS ORDERED: propofoL 1,000 MG/100 ML VIAL IV PRN (02:10)
[2019-12-07] MEDS ORDERED: LORazepam 2 MG/ML VIAL IV PRN (02:10)
[2019-12-07] MEDS ORDERED: MIDAZOLAM HCL 2 MG/2 ML INJ IV PRN (02:10)
[2019-12-07 02:21] LABS: Absolute Lymphocytes (CBC) 2.5 K/uL (0.7-4.9); Basophils % 0.3 % (0-1.3); Hematocrit 34.7 % (36.0-45.0); Lymphocytes % 22.8 % (15.3-44.8); RBC Red Blood Cell Count 3.62 M/uL (3.86-4.86)
[2019-12-07 02:45] LABS: Bilirubin Total 0.9 mg/dL (0.2-1.0); Potassium 4.3 mmol/L (3.5-5.1); Protein, Total 4.7 g/dL (6.4-8.2)
[2019-12-07 04:18] VITALS: TEMP 99.2
[2019-12-07 05:15] VITALS: O2SAT 93
[2019-12-07] MEDS ORDERED: NA CHLORIDE 0.9% 1,000 ML IV ONE (07:14)
[2019-12-07] MEDS ORDERED: EPINEPHrine 1 MG/10 ML SYR IV ONE (07:14)
[2019-12-07 07:29] VITALS: BP 56/37
[2019-12-07] MEDS ORDERED: FAMOTIDINE 20 MG/2 ML VIAL IV SCH (09:00)
[2019-12-07] MEDS ORDERED: Meropenem 1,000 MG in NA CHLORIDE 0.9% 100 ML IV SCH (09:00)
--- NOTE | 2019-12-07 09:22 | RAD REPORT ---
EXAM DESCRIPTION: RAD - Chest Single View - 12/07/2019 3:30 am CLINICAL HISTORY: CODE BLUE, respiratory distress COMPARISON: December 05 TECHNIQUE: AP portable chest image was obtained 12/07/2019 3:30 lewis supine positioning . FINDINGS: Lung volumes are low. Airspace opacification is seen in both lung wong not substantially different from the comparison. Enlarged cardiac silhouette is again noted. General widening of the m ediastinum seen, not unexpected given the low lung volumes and supine positioning. Endotracheal tube is in place with the tip approximately 2 cm above the tracheal bifurcation. NG tube is in place exten ding below the diaphragm. Resuscitation paddles overlie the upper left abdomen and upper right chest. Left-sided PICC line is in place. Tip of the PICC line has flipped into the subclavian vein or possi brennon the right jugular vein. No measurable pleural effusion and no pneumothorax. No acute bony abnorma lity seen. No acute aortic findings suspected. IMPRESSION: Endotracheal tube in place approximately 2 cm above the alba. Alveolar infiltrate or edema pattern in the lung wong not substantially different from prior day im aging. The tip of the left side PICC line has flipped and is directed superiorly into either the subclavian or jugular vein. Line should still be functional in this position.
--- NOTE | 2019-12-07 21:07 | DS ---
Date of Discharge: 12/07/2019 Disposition: The patient . Hospital Course: This is an 84-year-old female patient, who came into emergency room with abdominal pain, nausea, vomiting. Please see dictated H and P for more information. After the patient came in to emergency room, her workup was done in the emergency room, which included blood test and CAT scan. CAT scan was unremarkable for any acute changes and blood tests showed normal white count of 10.9 w ith hemoglobin 13.4, platelets 244. After I saw her, we started her on IV antibiotics, which was Lev aquin and metronidazole as well as IV fluid was given. The patient received pain medication and naus ea medicine per order. Her white count yesterday morning had count up to 22.9. Throughout the day, yesterday, she continued to have abdominal pain and nausea, and her abdominal x-ray, KUB that was don e, showed evidence of possibility of ileus. Dr. Martinez of General Surgery was consulted and he wanted the patient to have repeat CAT scan done. Because of this elevated white count and ongoing abdomina l pain, we needed to come up with appropriate explanation for her. Meanwhile in the afternoon, we ad ded another antibiotics, meropenem. IV fluid boluses were given to her and we did order some repeat blood work, but after multiple attempts, they were not able to draw blood. PICC line was ordered, wh ich was placed later on in the evening time. NG tube was ordered to be [facility] and initially NG tube was in the right main bronchus, so it needed to be replaced, which was re placed later on, and plan was to after NG tube is in place to send her down for CAT scan with oral co ntrast. Subsequently during evening hours, her condition started to deteriorate with drop in her blo od pressure and at that time, decision was made and more IV fluid bolus was ordered and later on, she was started on vasopressor medication, Dax-Synephrine. I did communicate with the patient's humberto reyes regarding her worsening condition and critical state, and we also talked about advanced directives and daughter informed me that to her knowledge, the patient has advanced directives at home, but she needed to go home and check those paperwork to let us know exactly what the patient would want accord ing to her advanced directive and daughter was made aware that until we hear something differently fr om her, the patient will remain full code and she understood that. So, later on during nighttime, th e patient was coded. Her blood pressure dropped very low. She became bradycardic and she stopped br eathing. At that time, code was called and she was in atrial fibrillation, then ventricular tachycar phil, and she was shocked and subsequently we were able to obtain her pulse back and she remained on v entilator after that. Daughter was contacted at that time as well to give some updates and then late r on, daughter came to the hospital with some other family member and I talked to her again at that t janice. As she did find the patient's advance directive, she brought the copy and informed us that the patient would not want all this heroic measures including life support, so we did talk about withdraw al of life support either during nighttime or different options discussed including wait in the morni ng time and option of either keep adding more vasopressor medications or go up on the dose or do not add any extra medicine and do not go up on any dose of vasopressor, but continue all the current mary ures that she is currently on and if her condition deteriorates, then let the god and nature take its course and make decision in the morning regarding withdrawal and that is what family decided to do s o. So around 5:50 this morning, the patient became bradycardic and went into asystole, and the patie nt this morning. Family was there at the hospital. I did talk to the patient's 2 daughters and it is our concern that her abdominal pain, nausea, vomiting, and how she went into the septic jarrett ck. We believe that either she had acute ischemic colitis or gangrenous bowel, which could have happ en due to either ischemic colitis or internal hernia. All those as a possible explanation discussed with the family member and they understood. Final Diagnoses: 1.Septic shock. 2.Acute respiratory failure with hypoxia secondary to above. 3.Cardiac arrest secondary to above. 4.Chronic atrial fibrillation. 5.Chronic diastolic congestive heart failure. 6.Hypertension. 7.Diabetes mellitus. 8.Peripheral vascular disease. 9.Gastroesophageal reflux disease. 10.Hyperlipidemia. 11.Hypothyroidism. Laboratory Data: Initial white count was 10.9 with hemoglobin 13.4, platelets 244. Yesterday mornin g, white count went up to 22.9, hemoglobin 13.1, platelets 245. Yesterday evening, white count of 7. 9, hemoglobin 13.2, platelets 188 and early this morning, white count 11, hemoglobin 10.9, platelets 189. When she first came into the hospital, sodium 133, potassium 3.7, chloride 94, bicarb 28, BUN 3 5, creatinine 1.92, glucose 617. Total bilirubin 0.8, direct bilirubin 0.4, SGOT 44, SGPT 54, alkali ne phosphatase 218, lipase 423. Last chemistry, sodium 156, potassium 4.6, chloride 114, bicarb 14, BUN 53, creatinine 2.24, glucose 154. Procalcitonin 24.12. Lactic acid 11.3. ELIA/MODL Voice ID: [id number] Report ID: [id number]
--- NOTE | 2019-12-09 07:47 | EKG ---
Test Date: 2019-12-07 Test Time: 00:36:26 Digital Artist: TAMMY MEASUREMENT RESULTS: Intervals: Rate: 154 DC: QRSD: 106 QT: 380 QTc: 608 [place]: P: DC: QRS: -72 T: 81 INTERPRETIVE STATEMENTS: afib rvr Left axis deviation Possible Lateral infarct, age undetermined Inferior-posterior infarct, age undetermined Abnormal ECG Compared to ECG 10/08/2019 21:51:26 Left-axis deviation now present Myocardial infarct finding now present Electronically Signed On 12-09-19 07:44:09 CDT by Ari Eastman
--- NOTE | 2019-12-09 10:30 | RAD REPORT ---
EXAM DESCRIPTION: RAD - Chest Single View - 12/06/2019 10:55 pm CLINICAL HISTORY: PICC placement TECHNIQUE: Single frontal view of the chest is submitted. COMPARISON: None available for comparison FINDINGS: Heart: The cardiothoracic silhouette is enlarged. Lungs: Central pulmonary prominence and patchy bilateral perihilar opacities. Mediastinum: Thoracic aortic atherosclerosis. Pleura: No appreciable effusion. No pneumothorax. Bones: Intact Upper abdomen: Unremarkable Other: Left upper extremity PICC tip projects over the superior vena cava right atrial junction. Naso gastric tube in place. The tip is collimated off the [id number]. The distal visualized portion pro jects over the left upper quadrant in the expected region of the stomach. IMPRESSION: 1. Left upper extremity PICC tip projects over the superior vena cava right atrial tray ction. 2. Findings which may be related to pulmonary congestion. Superimposed infection not excluded. Electronically signed by: Leroy Iglesias MD 12/06/2019 11:12 PM CDT Due to temporary technical issues with the PACS/Fluency reporting system, reports are being signed by the in house radiologist without review as a courtesy to ensure prompt reporting. The interpreting r adiologist is fully responsible for the content of the report.
== END 2019-12-07 07:15 | disposition expired | DRG 871 ==
LOC: ER 00:58 → ERHOLD 06:08 → 2ND 06:10 → ERHOLD 21:15
PROVIDERS: ADMIT Internal Medicine; ATTEND Internal Medicine
PROC: 5A12012 Performance of Cardiac Output, Single, Manual (ICD-10-PCS; 2019-12-06)
PROC: 02HV33Z Insertion of Infusion Device into Superior Vena Cava, Percutaneous Approach (ICD-10-PCS; 2019-12-06)
PROC: 5A1935Z Respiratory Ventilation, Less than 24 Consecutive Hours (ICD-10-PCS; principal; 2019-12-07)
PROC: 0BH17EZ Insertion of Endotracheal Airway into Trachea, Via Natural or Artificial Opening (ICD-10-PCS; 2019-12-07)
DX: A41.9 Sepsis, unspecified organism (principal); R65.21 Severe sepsis with septic shock; J96.01 Acute respiratory failure with hypoxia; K55.039 Acute (reversible) ischemia of large intestine, extent unspecified; K55.069 Acute infarction of intestine, part and extent unspecified; K46.1 Unspecified abdominal hernia with gangrene; N17.9 Acute kidney failure, unspecified; I50.32 Chronic diastolic (congestive) heart failure; I48.20 Chronic atrial fibrillation, unspecified; I47.2 Ventricular tachycardia; K56.7 Ileus, unspecified; I46.8 Cardiac arrest due to other underlying condition; E78.5 Hyperlipidemia, unspecified; E03.9 Hypothyroidism, unspecified; E11.51 Type 2 diabetes mellitus with diabetic peripheral angiopathy without gangrene; I11.0 Hypertensive heart disease with heart failure; K21.9 Gastro-esophageal reflux disease without esophagitis; E86.9 Volume depletion, unspecified; E87.6 Hypokalemia; Z79.4 Long term (current) use of insulin; Z79.899 Other long term (current) drug therapy; Z79.890 Hormone replacement therapy; Z88.1 Allergy status to other antibiotic agents; Z79.82 Long term (current) use of aspirin; Z79.01 Long term (current) use of anticoagulants; Z91.048 Other nonmedicinal substance allergy status; Z90.49 Acquired absence of other specified parts of digestive tract; Z20.828 Contact with and (suspected) exposure to other viral communicable diseases
CPT/HCPCS: 36415; 36569; 71045; 74018; 74177; 80048; 80053; 80076; 81003; 81015; 82010; 82565; 82947; 83036; 83605; 83690; 83735; 84145; 85025; 87040; 87077; 87086; 87088; 87186; 93005; 94002; 96361; 96374; 96375; 99285; J0171; J0360; J1815; J2185; J2270; J2370; J2405; J2550; J3010; J3480; J7030; J7040; J7050; J7060; Q9967; U0003